=== PATIENT | female | born 1940 | race Caucasian/White ===

== ENCOUNTER → 2016-12-28 | Outpatient (CLI) | payer MEDICARE ==
--- NOTE | 2016-12-28 16:05 | BD ---
EXAMINATION TYPE: MG DEXA axial skeleton. DATE OF EXAM: 12/28/2016 7:33 AM COMPARISON: NONE CLINICAL HISTORY: Height: 5 ft 6 in Weight: 154 FRAX RISK QUESTIONS: Alcohol (3 or more units per day): NO Family History (Parent hip fracture): NO Glucocorticoids (More than 3mos): NO (Ex: prednisone, prednisolone, methylprednisolone, dexamethasone, and hydrocortisone). History of Fracture in Adulthood: NO Secondary Osteoporosis: 1. Type 1 Diabetes: NO 2. Hyperthyroidism: NO 3. Menopause before 45: YES 4. Malnutrition: NO 5. Chronic liver disease: NO Rheumatoid Arthritis: YES Current Tobacco Use: NO RISK FACTORS HISTORY OF: Active: YES Postmenopausal woman: TOTAL HYST AGE 42 Take estrogen and/or progesterone medications: NONE NOW Lost more than 2 inches in height since high school: YES MEDICATIONS: Additional Medications: METFROMIN,3 DIFFERENT BLOOD PRESSURE MEDS, ALEVE COQ10 Additional History: EXAM MEASUREMENTS: Bone mineral densitometry was performed using the [employer] System. Bone mineral density as measured about the Lumbar spine is: ----- L1-L4(G/cm2): 1.821 T Score Values are as follows: ----- L2: 4.6 ----- L3: 5.3 ----- L4: 5.9 ----- L1-L4: 5.3 BASELINE Bone mineral density about the R hip (g/cm2): 1.104 Bone mineral density about the L hip (g/cm2): 1.096 T Score values are as follows: -----R Neck: 0.5 -----L Neck: 0.4 -----R Intertrochanter: -0.4 -----L Intertrochanter: -1.6 BASELINE IMPRESSION: Osteopenia (T Score between -2.5 and -1 as noted by T score values There is slightly increased risk of fracture and the patient may be considered for treatment. Re-Screen 1-2 years. NOTE: T-SCORE=SD OF THE YOUNG ADULT MEAN.
--- NOTE | 2016-12-29 11:51 | MM ---
Reason for exam: screening (asymptomatic). Last mammogram was performed 1 year and 1 month ago. History: Patient is postmenopausal and is nulliparous. Took estrogen for 9 years. Physical Findings: A clinical breast exam by your physician is recommended on an annual basis and results should be correlated with mammographic findings. MG 3D Screening Mammo W/Cad Bilateral CC and MLO view(s) were taken. Prior study comparison: November 23, 2015, bilateral MG screening mammo w CAD. January 14, 2013, bilateral digital screening mammo w/CAD. There are scattered fibroglandular densities. Asymmetric breast tissue in the left breast posterior upper outer aspect. There is no discrete abnormality. ASSESSMENT: Negative, BI-RAD 1 RECOMMENDATION: Routine screening mammogram of both breasts in 1 year.
== END | disposition home or self-care (01) ==
LOC: RADMAMWWP 06:49
PROVIDERS: ATTEND Family Medicine
DX: Z12.31 Encounter for screening mammogram for malignant neoplasm of breast (principal); Z13.820 Encounter for screening for osteoporosis; M85.80 Other specified disorders of bone density and structure, unspecified site
CPT/HCPCS: 77080; 77063; G0202

== ENCOUNTER → 2021-06-15 | Outpatient (CLI) | payer MEDICARE ==
--- NOTE | 2021-06-15 08:44 | BD ---
EXAMINATION TYPE: Axial Bone Density PT VERY HUNCHED OVER, BENT AT TH E WAIST DATE OF EXAM: 06/15/2021 COMPARISON: 12.28.2016 CLINICAL HISTORY: 80 YR OLD FEMALE.....ICD-10 CODE: M85.80 DISORDER OF BD Height: 61.2 Weight: 131 FRAX RISK QUESTIONS: Secondary Osteoporosis: YES 3. Menopause before 45: YES RISK FACTORS HISTORY OF: Postmenopausal woman: YES, AT AGE 42 NATURALLY Take estrogen and/or progesterone medications: YES, PREMARIN FOR ABOUT 1-2 YRS Lost more than 2 inches in height since high school: YES Frequent falls: PT HUNCHED OVER AND UNSTEADY Poor Health: FRAIL Hyperparathyroidism: NO Adrenal Insufficiency: NO MEDICATIONS: Additional Medications: BP MEDS, JAULMET, FOR DIABETES, STATIN FOR CHOLESTEROL, VIT D3, Additional History: HYPERTENSION, DIABETIC, CHOLESTEROL, ARTHRITIS, EXAM MEASUREMENTS: Bone mineral densitometry was performed using the [employer] System. Bone mineral density as measured about the Lumbar spine is: ----- L1-L4(G/cm2): 1.711 T Score Values are as follows: ----- L1: 3.6 ----- L2: 3.1 ----- L3: 4.0 ----- L4: 6.1 ----- L1-L4: 4.4 Bone mineral density has: Decreased -3.8% since study of: 12.28.2016 Bone mineral density about the R hip (g/cm2): 1.048 Bone mineral density about the L hip (g/cm2): 1.032 T Score values are as follows: -----R Neck: -0.1 -----L Neck: -0.4 -----R Total: 0.3 -----L Total: 0.2 Bone mineral density has: Decreased -4.0% since study of: 12.28.2016 FRAX%s: THERE IS A 9.6% CHANCE FOR A MAJOR OSTEOPOROTIC FX AND A 1.7% FOR HIP......PROBABILITY FOR FX IN 10 YRS TIME IMPRESSION: Normal (Values between +1 and -1 indicate normal bone mass). Consider repeating this study in 5 year s or sooner if there is some new clinical indication. NOTE: T-SCORE=SD OF THE YOUNG ADULT MEAN.
== END | disposition home or self-care (01) ==
LOC: RADBDWWP 07:20
PROVIDERS: ATTEND Family Medicine
DX: M85.80 Other specified disorders of bone density and structure, unspecified site (principal)
CPT/HCPCS: 77080

== ENCOUNTER 2022-02-03 17:37 | Emergency (ER) | payer MEDICARE ==
[2022-02-03] MEDS ORDERED: BEBTELOVIMAB (EUA) 175 MG/2 ML VIAL IV ONE (19:45)
--- NOTE | 2022-02-03 19:49 | ED ---
General Adult HPI - General Chief complaint: Upper Respiratory Infection Stated complaint: Covid test Time Seen by Provider: 02/03/22 18:40 Source: patient, RN notes reviewed, old records reviewed Mode of arrival: ambulatory Limitations: no limitations - History of Present Illness Initial comments: Patient is an 81-year-old female with past medical history remarkable for diabetes, hypertension and presents emergency department over concern for COVID- 19 infection. She was vaccinated and boosted for COVID-19. She states she recently had a positive exposure 4 days ago. Like to be tested. She is having some mild symptoms including a nonproductive cough. Denies any chest pain, abdominal pain, nausea, vomiting, diarrhea. Denies any fevers or chills. Has no other acute complaints at this time. Would like monoclonal antibodies if she is positive. - Related Data Allergies Allergy/AdvReac Type Severity Reaction Status Date / Time aspirin Allergy Unknown Verified 02/03/22 17:46 cephalexin Allergy Unknown Verified 02/03/22 17:46 ciprofloxacin [From Cipro] Allergy Unknown Verified 02/03/22 17:46 codeine Allergy Unknown Verified 02/03/22 17:44 Review of Systems ROS Statement: Those systems with pertinent positive or pertinent negative responses have been documented in the HPI. Review of Systems: CONST: Denies fever EYES: Denies blurry vision ENT: Endorses nasal congestion. C/V: Denies Chest pain RESP: Denies shortness of breath GI: Denies abdominal pain : Denies dysuria SKIN: Denies rash. MSK: Denies joint pain. NEURO: Denies headache ROS Other: All systems not noted in ROS Statement are negative. Past Medical History Past Medical History: Diabetes Mellitus, Hyperlipidemia, Hypertension History of Any Multi-Drug Resistant Organisms: None Reported Past Surgical History: Appendectomy, Cholecystectomy, Coronary Bypass/CABG, Hysterectomy, Tonsillectomy Past Psychological History: No Psychological Hx Reported Smoking Status: Never smoker Past Alcohol Use History: None Reported Past Drug Use History: None Reported General Exam - General Exam Comments Initial Comments: General: Appears in no acute distress. HEAD: Normal with no signs of head trauma. EYES: PERRLA, EOMI, conjunctiva normal, no discharge. ENT: Hearing grossly intact, normal oropharynx. RESPIRATORY: Clear breath sounds bilaterally. No wheezes, rales, or rhonchi. Not hypoxic, no increased work of breathing. C/V: Regular rate and rhythm. S1 and S2 auscultated, no edema, peripheral pulses 2+ and intact throughout ABD: Abd is soft, nontender, nondistended EXT: Normal range of motion, no obvious deformity SKIN: No rashes or lesions observed on exposed skin. NEURO: Alert and oriented 4. Limitations: no limitations Course Vital Signs 02/03/22 17:40 Temperature 98.1 F Pulse Rate 80 Respiratory 18 Rate Blood Pressure 177/78 O2 Sat by Pulse 99 Oximetry Medical Decision Making - Medical Decision Making Based on the patient's presentation and physical exam, I do believe she is Covid 19 positive. Covid testing was ordered in triage and was be positive. I do not believe that she requires further laboratory studies at this time. She would like monoclonal antibody therapy and she is a candidate. She consented to treatment. I believe she will be discharged home afterwards. She was in agreement this plan. We discussed quarantine. She'll follow-up with her PCP. I instructed the patient to follow up with their PCP in the next 3 days. I explained that the patient should return to the emergency department if they experience any worsening symptoms. Strict return precautions were discussed with the patient. The patient expressed understanding of these instructions. I answered all questions that the patient had. The patient was discharged home in good condition with their prescriptions and follow up information. - Lab Data Lab Results 02/03/22 Range/Units 17:53 Coronavirus (PCR) Detected A (Not Detectd) Disposition Clinical Impression: COVID-19 virus infection Disposition: HOME SELF-CARE Condition: Good Instructions (If sedation given, give patient instructions): COVID-19 (Coronavirus Disease 2019) (ED) Is patient prescribed a controlled substance at d/c from ED?: No Referrals: Musa Feliciano MD [Primary Care Provider] - 1-2 days Time of Disposition: 19:47
[2022-02-03 21:59] VITALS: RESP 20
[2022-02-03 22:04] VITALS: BP 168/77; PULSE 76; TEMP 98
== END 2022-02-03 22:03 | disposition home or self-care (01) ==
LOC: EC 17:37
DX: U07.1 COVID-19 (principal); E11.9 Type 2 diabetes mellitus without complications; I10 Essential (primary) hypertension; E78.5 Hyperlipidemia, unspecified
CPT/HCPCS: 87635; 99283; Q0222

== ENCOUNTER 2023-02-28 17:33 | Inpatient (IN) | payer MEDICARE ==
[2023-02-28] MEDS ORDERED: MECLIZINE 25 MG TAB PO STA (17:51)
--- NOTE | 2023-02-28 18:26 | ED ---
General Adult HPI - General Chief complaint: Dizziness Stated complaint: Dizziness Time Seen by Provider: 02/28/23 17:40 Source: patient, EMS, RN notes reviewed, old records reviewed Mode of arrival: EMS - History of Present Illness Initial comments: This is an 82-year-old female presents emergency Department complaining that she is extremely dizzy. Patient states anytime she moves he gets dizzy and feels like she can follow. Patient states his did follow her she did not injure herself. Patient denies any headache patient denies any hearing loss or ringing in ears its new. Patient denies chest pain palpitations or difficulty breathing. Patient doesn't recall having similar symptoms in the past. Patient states she doesn't feel like she is given a passout just fall over. Patient denies any other problems at this time earlier she stated she was a little nause ous but no longer nauseous now - Related Data Home Medications Medication Instructions Recorded Confirmed Aspirin [Adult Low Dose Aspirin EC] 1 tab PO DAILY 08/22/22 02/28/23 Simvastatin [Zocor] 20 tab PO HS 08/22/22 02/28/23 amLODIPine [Norvasc] 5 tab PO BID 08/22/22 02/28/23 sitaGLIPtin PHOS/metFORMIN HCL 1 tab PO DAILY 08/22/22 02/28/23 [Janumet 50-1,000 mg Tablet] Cholecalciferol [Vitamin D3 (25 50 mcg PO DAILY 02/28/23 02/28/23 Mcg = 1000 Iu)] Cyanocobalamin (Vitamin B-12) 1,000 mcg PO MOWEFR 02/28/23 02/28/23 [Vitamin B-12] Doxazosin [Cardura] 2 mg PO HS 02/28/23 02/28/23 Losartan Potassium [Cozaar] 100 mg PO DAILY 02/28/23 02/28/23 Metoprolol Succinate [Toprol XL] 200 mg PO DAILY 02/28/23 02/28/23 Turmeric Root Extract [Turmeric] 500 mg PO DAILY 02/28/23 02/28/23 Ubidecarenone [Co Q-10] 300 mg PO DAILY 02/28/23 02/28/23 Allergies Allergy/AdvReac Type Severity Reaction Status Date / Time aspirin Allergy Unknown Verified 02/28/23 19:57 cephalexin Allergy Unknown Verified 02/28/23 19:57 ciprofloxacin [From Cipro] Allergy Unknown Verified 02/28/23 19:57 codeine Allergy Unknown Verified 02/28/23 19:57 Review of Systems ROS Statement: Those systems with pertinent positive or pertinent negative responses have been documented in the HPI. ROS Other: All systems not noted in ROS Statement are negative. Past Medical History Past Medical History: Diabetes Mellitus, Hyperlipidemia, Hypertension History of Any Multi-Drug Resistant Organisms: None Reported Past Surgical History: Appendectomy, Cholecystectomy, Coronary Bypass/CABG, Hysterectomy, Tonsillectomy Past Psychological History: No Psychological Hx Reported Smoking Status: Never smoker Past Alcohol Use History: None Reported Past Drug Use History: None Reported General Exam - General Exam Comments Initial Comments: GENERAL: Patient is well-developed and well-nourished. Patient is nontoxic and well- hydrated and is in mild distress. ENT: Neck is soft and supple. No significant lymphadenopathy is noted. Oropharynx is clear. Moist mucous membranes. Neck has full range of motion without eliciting any pain. EYES: The sclera were anicteric and conjunctiva were pink and moist. Extraocular movements were intact and pupils were equal round and reactive to light. Eyelids were unremarkable. Patient had some nystagmus when looking to the left PULMONARY: Unlabored respirations. Good breath sounds bilaterally. No audible rales rhonchi or wheezing was noted. CARDIOVASCULAR: There is a regular rate and rhythm without any murmurs gallops or rubs. ABDOMEN: Soft and nontender with normal bowel sounds. SKIN: Skin is clear with no lesions or rashes and otherwise unremarkable. NEUROLOGIC: Patient is alert and oriented x3. Cranial nerves II through XII are grossly intact. Motor and sensory are also intact. Normal speech, volume and content. Symmetrical smile. Finger nose testing was normal bilaterally MUSCULOSKELETAL: Normal extremities with adequate strength and full range of motion. LYMPHATICS: No significant lymphadenopathy is noted PSYCHIATRIC: Normal psychiatric evaluation. Course Vital Signs 02/28/23 17:35 Temperature 98.9 F Pulse Rate 71 Respiratory 16 Rate Blood Pressure 170/85 O2 Sat by Pulse 96 Oximetry Medical Decision Making - Medical Decision Making Patient's EKG was interpreted by myself shows a sinus rhythm at 71 bpm AL interval is 235 QRS is 93 QT intervals 419 QTC is 441 per patient's EKG shows no ST segment elevation or depression Repeat EKG was done shows a sinus rhythm at 60 bpm AL interval 174 QRS is 98 QTC intervals 469 QTC is 475. Patient also had a long pause lasting approximately a little over 2 seconds Was pt. sent in by a medical professional or institution ([facility], [facility], urgent care, hospital, or jail...) When possible be specific @ -No Did you speak to anyone other than the patient for history (EMS, parent, family, police, friend...)? What history was obtained from this source @ -No Did you review nursing and triage notes (agree or disagree)? Why? @ -I reviewed and agree with nursing and triage notes Were old charts reviewed (outside hosp., previous admission, EMS record, old EKG, old radiological studies, urgent care reports/EKG's, jail records)? Report findings @ -No old charts were reviewed Differential Diagnosis (chest pain, altered mental status, abdominal pain women, abdominal pain men, vaginal bleeding, weakness, fever, dyspnea, syncope, headache, dizziness, GI bleed, back pain, seizure, CVA, palpatations, mental health, musculoskeletal)? @ -Differential Dizziness: Benign paroxysmal positional Vertigo, Menieres disease, otitis media, acoustic neuroma, vertebrobasilar insufficiency, cerebellar stroke, encephalitis, hypovolemic, arrhythmia, coronary artery syndrome, anemia, this is not meant to be an all-inclusive list EKG interpreted by me (3pts min.). @ -As above X-rays interpreted by me (1pt min.). @ -Chest x-ray was interpreted by myself as see no acute abnormalities. CT interpreted by me (1pt min.). @ -CT of the brain was interpreted by myself as see no acute abnormalities U/S interpreted by me (1pt. min.). @ -None done What testing was considered but not performed or refused? (CT, X-rays, U/S, labs)? Why? @ -None What meds were considered but not given or refused? Why? @ -None Did you discuss the management of the patient with other professionals (professionals i.e. [facility], [facility], lab, RT, psych nurse, marriage and family social worker, hydraulic rubbish compactor mechanic, teacher, consular officer, sample case porter)? Give summary @ -I spoke with sounds physician's he agreed to admit the patient to the patient wrote admitting orders Was smoking cessation discussed for >3mins.? @ -No Was critical care preformed (if so, how long)? @ -No Were there social determinants of health that impacted care today? How? (Homelessness, low income, unemployed, alcoholism, drug addiction, transportation, low edu. Level, literacy, decrease access to med. care, skilled nursing, rehab)? @ -No Was there de-escalation of care discussed even if they declined (Discuss DNR or withdrawal of care, Hospice)? DNR status @ -No What co-morbidities impacted this encounter? (DM, HTN, Smoking, COPD, CAD, Cancer, CVA, ARF, Chemo, Hep., AIDS, mental health diagnosis, sleep apnea, morbid obesity)? @ -None Was patient admitted / discharged? Hospital course, mention meds given and route, prescriptions, significant lab abnormalities, going to OR and other pertinent info. @ -Received Antivert for her vertiginous symptoms. I went back into reevaluate the patient she was unable to sit up in bed. Patient also had elevated creatinine she was unaware of this so I spoke with sounds physician's a agreed to admit the patient to the patient wrote admitting orders Undiagnosed new problem with uncertain prognosis? @ -No Drug Therapy requiring intensive monitoring for toxicity (Heparin, Nitro, Insulin, Cardizem)? @ -No Were any procedures done? @ -No Diagnosis/symptom? @ -Vertigo Acute, or Chronic, or Acute on Chronic? @ -Acute Uncomplicated (without systemic symptoms) or Complicated (systemic symptoms)? @ -Complicated Side effects of treatment? @ -No Exacerbation, Progression, or Severe Exacerbation? @ -No Poses a threat to life or bodily function? How? (Chest pain, [place], [place], pneumonia, PE, COPD, DKA, ARF, appy, cholecystitis, CVA, Diverticulitis, Homicidal, Suicidal, threat to staff... and all critical care pts) @ -No Diagnosis/symptom? @ -Renal insufficiency Acute, or Chronic, or Acute on Chronic? @ -Acute Uncomplicated (without systemic symptoms) or Complicated (systemic symptoms)? @ -Complicated Side effects of treatment? @ -none Exacerbation, Progression, or Severe Exacerbation] @ -no Poses a threat to life or bodily function? @ -no - Lab Data Result diagrams: 02/28/23 17:58 02/28/23 17:58 Lab Results 02/28/23 02/28/23 02/28/23 Range/Units 17:58 17:58 17:58 WBC 13.2 H (3.8-10.6) k/uL RBC 3.26 L (3.80-5.40) m/uL Hgb 10.4 L (11.4-16.0) gm/dL Hct 32.7 L (34.0-46.0) % MCV 100.4 H (80.0-100.0) fL MCH 32.0 (25.0-35.0) pg MCHC 31.9 (31.0-37.0) g/dL RDW 12.9 (11.5-15.5) % Plt Count 173 (150-450) k/uL MPV 10.7 Neutrophils % 86 % Lymphocytes % 6 % Monocytes % 7 % Eosinophils % 1 % Basophils % 0 % Neutrophils # 11.4 H (1.3-7.7) k/uL Lymphocytes # 0.8 L (1.0-4.8) k/uL Monocytes # 0.9 (0-1.0) k/uL Eosinophils # 0.1 (0-0.7) k/uL Basophils # 0.0 (0-0.2) k/uL Sodium 137 (137-145) mmol/L Potassium 4.6 (3.5-5.1) mmol/L Chloride 105 (98-107) mmol/L Carbon Dioxide 22 (22-30) mmol/L Anion Gap 10 mmol/L BUN 47 H (7-17) mg/dL Creatinine 2.22 H (0.52-1.04) mg/dL Est GFR (CKD-EPI)AfAm 23 (>60 ml/min/1.73 sqM) Est GFR (CKD-EPI)NonAf 20 (>60 ml/min/1.73 sqM) Glucose 184 H (74-99) mg/dL Calcium 9.3 (8.4-10.2) mg/dL Magnesium 1.9 (1.6-2.3) mg/dL Total Bilirubin 0.6 (0.2-1.3) mg/dL AST 34 (14-36) U/L ALT 29 (4-34) U/L Alkaline Phosphatase 135 H (38-126) U/L Troponin I <0.012 (0.000-0.034) ng/mL Total Protein 6.7 (6.3-8.2) g/dL Albumin 4.0 (3.5-5.0) g/dL Disposition Clinical Impression: Renal insufficiency, Vertigo Disposition: ADMITTED IP TO THIS HOSP Referrals: Musa Feliciano MD [Primary Care Provider] - 1-2 days Time of Disposition: 19:52
[2023-02-28 18:32] LABS: Basophils % (A) 0 %; Eosinophils # (A) 0.1 k/uL (0-0.7); Eosinophils % (A) 1 %; HCT 32.7 % (34.0-46.0); HGB 10.4 gm/dL (11.4-16.0); Lymphocytes # (A) 0.8 k/uL (1.0-4.8); Lymphocytes % (A) 6 %; MCHC 31.9 g/dL (31.0-37.0); MCV 100.4 fL (80.0-100.0); Mean Platelet Volume 10.7; Monocytes # (A) 0.9 k/uL (0-1.0); Monocytes % (A) 7 %; Neutrophils # (A) 11.4 k/uL (1.3-7.7); Neutrophils % (A) 86 %; Platelet Count 173 k/uL (150-450); RBC 3.26 m/uL (3.80-5.40); RDW 12.9 % (11.5-15.5); WBC 13.2 k/uL (3.8-10.6)
--- NOTE | 2023-02-28 18:39 | CT ---
EXAMINATION TYPE: CT brain wo con DATE OF EXAM: 02/28/2023 COMPARISON: None INDICATION: ams, weakness, dizziness DLP: 1133.4 mGycm, Automated exposure control for dose reduction was used. CONTRAST: None CT of the brain is performed utilizing 3 mm thick sections through the posterior fossa and 3 mm thick sections through the remaining calvarium. Study is performed within 24 hours of arrival to the hosp ital. No abnormal hyperdensity is present to suggest an acute intracranial hemorrhage. No mass lesion is evident. No acute infarcts are evident. Periventricular white matter hypodensity is present, likely on the bas is of chronic white matter ischemic changes. Ventricles and sulci are prominent for the patient age. Paranasal sinuses and mastoid air cells within the [id number] are clear. IMPRESSIONS: 1. Atrophy with periventricular white matter ischemic changes. 2. No acute intracranial process. Follow-up MRI can be performed as clinically indicated.
[2023-02-28 18:47] LABS: Calcium 9.3 mg/dL (8.4-10.2); Magnesium 1.9 mg/dL (1.6-2.3); Potassium 4.6 mmol/L (3.5-5.1); Total Bilirubin 0.6 mg/dL (0.2-1.3); Total Protein 6.7 g/dL (6.3-8.2)
--- NOTE | 2023-02-28 18:48 | XR ---
EXAMINATION TYPE: XR chest 2V DATE OF EXAM: 02/28/2023 COMPARISON: Chest pain fall weakness INDICATION: Chest pain TECHNIQUE: Frontal and lateral views of the chest are obtained. FINDINGS: The heart size is normal. The pulmonary vasculature is somewhat prominent. Small posterior pleural effusion may be present. Sternotomy wires are present from prior cardiac valv e surgery. Osteoarthritic Degenerative changes are noted at the right shoulder. IMPRESSION: 1. Mild vascular prominence. Correlate for volume overload. 2. Small posterior pleural effusion
[2023-02-28] MEDS ORDERED: SODIUM CHLORIDE 0.9% 1,000 ML IV ONE (19:53)
[2023-02-28] MEDS ORDERED: SCOPOLAMINE 1 MG/72 HR PATCH TRANSDERM STA (19:54)
[2023-02-28] MEDS ORDERED: GLUCAGON 1 MG/ML VIAL IVP STA (21:12)
[2023-02-28] MEDS: DOPamine DRIP 800 MG in DEXTROSE/WATER 1 250ML.BAG IV SCH (21:25)
[2023-02-28] MEDS ORDERED: Potassium Replacement Protocol 1 EACH MISC MISCELLANE PRN (22:11)
[2023-02-28] MEDS ORDERED: NALOXONE 0.4 MG/ML 1 ML VIAL IV PRN (22:11)
[2023-02-28] MEDS ORDERED: ALPRAZolam 0.25 MG TAB PO PRN (22:11)
[2023-02-28] MEDS ORDERED: Magnesium Replacement Protocol 1 EACH MISC MISCELLANE PRN (22:11)
[2023-02-28] MEDS ORDERED: ACETAMINOPHEN TAB 325 MG TAB PO PRN (22:11)
[2023-03-01 00:31] LABS: Glucose,Whole Blood 218 mg/dL (70-110)
[2023-03-01] MEDS: HEPARIN SODIUM,PORCINE/PF 5,000 UNIT/0.5 ML SYRINGE SQ SCH ×3 (00:33→16:47)
--- NOTE | 2023-03-01 02:13 | P.HPIM ---
History of Present Illness H&P Date: 02/28/23 Chief Complaint: dizziness 82 year old female with hypertension , CABG 10 years ago , DM patient coming in due to dizziness , she is unable to walk or do anything, as she feels extremly dizzy and nauseated. she denies any palpitations, chest pain , SOB, fever, chills, URI symptoms, ear ache, headache, tinnitus , or vomiting. denies any hearing loss. denies any head trauma. her symptoms were off/on since Monday (2 days ago) she saw her packaging designer yesterday , and everything seemed to be fine, no new medications no changes in her meds. she came in via EMS, and found to have 1st degree AV block. however ,later while monitored inthe EED , she went into complete heart block. cardiology notified , and she was started on dopamine drip, and given glucagon injection to help reverse her metoprolol daily dose of 200 mg she denies smoking or any illicit drugs she has never experienced such symptoms before. Review of Systems Pertinent positives as noted in HPI. All other systems were reviewed and are negative Past Medical History Past Medical History: Diabetes Mellitus, Hyperlipidemia, Hypertension History of Any Multi-Drug Resistant Organisms: None Reported Past Surgical History: Appendectomy, Cholecystectomy, Coronary Bypass/CABG, Hy sterectomy, Tonsillectomy Past Psychological History: No Psychological Hx Reported Smoking Status: Never smoker Past Alcohol Use History: None Reported Past Drug Use History: None Reported Medications and Allergies Home Medications Medication Instructions Recorded Confirmed Type Aspirin [Adult Low Dose Aspirin EC] 1 tab PO DAILY 08/22/22 02/28/23 History Simvastatin [Zocor] 20 tab PO HS 08/22/22 02/28/23 History amLODIPine [Norvasc] 5 tab PO BID 08/22/22 02/28/23 History sitaGLIPtin PHOS/metFORMIN HCL 1 tab PO DAILY 08/22/22 02/28/23 History [Janumet 50-1,000 mg Tablet] Cholecalciferol [Vitamin D3 (25 50 mcg PO DAILY 02/28/23 02/28/23 History Mcg = 1000 Iu)] Cyanocobalamin (Vitamin B-12) 1,000 mcg PO MOWEFR 02/28/23 02/28/23 History [Vitamin B-12] Doxazosin [Cardura] 2 mg PO HS 02/28/23 02/28/23 History Losartan Potassium [Cozaar] 100 mg PO DAILY 02/28/23 02/28/23 History Metoprolol Succinate [Toprol XL] 200 mg PO DAILY 02/28/23 02/28/23 History Turmeric Root Extract [Turmeric] 500 mg PO DAILY 02/28/23 02/28/23 History Ubidecarenone [Co Q-10] 300 mg PO DAILY 02/28/23 02/28/23 History Allergies Allergy/AdvReac Type Severity Reaction Status Date / Time aspirin Allergy Unknown Verified 02/28/23 19:57 cephalexin Allergy Unknown Verified 02/28/23 19:57 ciprofloxacin [From Cipro] Allergy Unknown Verified 02/28/23 19:57 codeine Allergy Unknown Verified 02/28/23 19:57 Physical Exam Vitals: Vital Signs Temp Pulse Resp BP Pulse Ox 02/28/23 17:35 98.9 F 71 16 170/85 96 Intake and Output 02/28/23 02/28/23 02/28/23 06:59 14:59 22:59 Other: Weight 61.235 kg Constitutional: patient is very dizzy and nauseated Eyes: Anicteric sclerae, moist conjunctiva, Pupils equal round reactive to light ENMT: NC/AT Oropharynx clear, no erythema, or exudates Neck: Supple, no masses, or JVD No carotid bruits No thyromegaly Lungs: Clear to auscultation Clear to percussion Normal respiratory effort, no accessory muscle use Cardiovascular: Heart bradycardia No murmurs, gallops, or rubs No peripheral edema Abdominal: Soft Nontender, no guarding, rebound or rigidity Abdomen moving with respiration Normoactive bowel sounds No hepatomegaly, No splenomegaly Skin: Normal temperature, tone, texture, turgor Extremities: No digital cyanosis No clubbing Pedal pulses intact and symmetrical Radial pulses intact and symmetrical No calf tenderness Psychiatric: Alert and oriented to person, place and time Neuro Muscles Strength 4/5 in all 4 extremities Sensation to light touch grossly present throughout Cranial nerves II-XII grossly intact Lymphatics: no palpable cervical or supraclavicular lymph nodes Results CBC & Chem 7: 02/28/23 17:58 02/28/23 17:58 Labs: Abnormal Lab Results - Last 24 Hours (Table) 05/09/23 05/09/23 Range/Units 17:58 17:58 WBC 13.2 H (3.8-10.6) k/uL RBC 3.26 L (3.80-5.40) m/uL Hgb 10.4 L (11.4-16.0) gm/dL Hct 32.7 L (34.0-46.0) % MCV 100.4 H (80.0-100.0) fL Neutrophils # 11.4 H (1.3-7.7) k/uL Lymphocytes # 0.8 L (1.0-4.8) k/uL BUN 47 H (7-17) mg/dL Creatinine 2.22 H (0.52-1.04) mg/dL Glucose 184 H (74-99) mg/dL Alkaline Phosphatase 135 H (38-126) U/L Assessment and Plan Assessment: 82 year old female coming in with nausea and dizziness. I discussed the case with ED doc, she was found to be in complete heart block , I accepted the admission to the ICU for dopamine drip and close monitoring and cardiology evaluation . with anticipated length of stay > 2 midnights symptomatic bradycardia complete heart block hypertension plan laboratory monitor initiate on dopamine drip per cardiology recommendations glucagon injection given to reverse metoprolol effect she takes 200 mg daily (per cardiology recommendations) I notified ICU attending who accepted the case to the ICU monitor vital signs, urine output symptomatic control of nausea with PRN zofran hold metoprolol and amlodipine continue with losartan and cardura EKG showed complete heart block Brain CT no acute pathology CXR small plural effusion , increase vascular prominence k 4.6 UNREMARKABLE trops negative CKD III cr 2.2 , unknown baseline monitor urine output monitor renal function DM insulin sliding scale full code DVT PPX heparin sc tid 5000 units
[2023-03-01 04:25] LABS: Basophils % (A) 0 %; Eosinophils # (A) 0.1 k/uL (0-0.7); Eosinophils % (A) 1 %; HGB 10.2 gm/dL (11.4-16.0); Lymphocytes # (A) 0.9 k/uL (1.0-4.8); Lymphocytes % (A) 9 %; MCH 31.4 pg (25.0-35.0); MCHC 30.9 g/dL (31.0-37.0); MCV 101.5 fL (80.0-100.0); Mean Platelet Volume 10.3; Monocytes # (A) 0.7 k/uL (0-1.0); Monocytes % (A) 7 %; Neutrophils # (A) 7.9 k/uL (1.3-7.7); Neutrophils % (A) 82 %; Platelet Count 183 k/uL (150-450); RBC 3.25 m/uL (3.80-5.40); WBC 9.6 k/uL (3.8-10.6)
[2023-03-01 04:56] LABS: Phosphorus 5.2 mg/dL (2.5-4.5); Potassium 5.2 mmol/L (3.5-5.1)
[2023-03-01 06:31] LABS: Glucose,Whole Blood 210 mg/dL (70-110)
[2023-03-01] MEDS: INSULIN ASPART (NovoLOG) 100 UNIT/ML VIAL SQ SCH ×4 (07:20→21:05)
[2023-03-01] MEDS: DEXTROSE 5%-0.9% NACL 1,000 ML IV SCH ×2 (07:20→12:26)
[2023-03-01] MEDS ORDERED: INSULIN ASPART (NovoLOG) 100 UNIT/ML VIAL SQ SCH (07:30)
[2023-03-01] MEDS ORDERED: LINAGLIPTIN 5 MG TABLET PO SCH (09:00)
[2023-03-01] MEDS ORDERED: LOSARTAN 50 MG TAB PO SCH (09:00)
--- NOTE | 2023-03-01 09:04 | US ---
EXAMINATION TYPE: US renals and bladder DATE OF EXAM: 03/01/2023 COMPARISON: NONE CLINICAL INDICATION: Female, 82 years old with history of elevated Cr; ICU patient with abn labs, no renal history or symptoms EXAM MEASUREMENTS: Right Kidney: 7.2 x 4.1 x 4.5cm Left Kidney: 7.4 x 4.7 x 4.8cm Right Kidney: No hydronephrosis or masses seen, small in size Left Kidney: No hydronephrosis or masses seen, small in size, limited visibility due to bowel gas and limited patient mobility Bladder: wnl No hydronephrosis or nephro lithiasis. Renal cortex does appear to be preserved. Trace of right pleur al fluid. Preservation of cortical medullary differentiation is visualized. IMPRESSION: Renal atrophy with diminutive renal size with no hydronephrosis and devices. Cortex appears preserved . Trace right pleural effusion incidentally noted.
--- NOTE | 2023-03-01 09:08 | P.CRDCN ---
History of Present Illness Consult date: 03/01/23 Consult reason: sycope History of present illness: The patient is an 82-year-old female who presented to the hospital with dizziness and syncope. The patient states she developed dizziness on Monday. This was worsened with standing and would resolve if she would sit and rest. On Monday morning the patient was standing and does not recall her falling, but regained consciousness while lying on the floor. Initial EKG showed sinus, then converted to complete heart block. The patient has remained in complete heart block with heart rates in the 30s to 40s. The patient takes high-dose beta blockers at home, therefore she was given glucagon and started on a dopamine drip during her washout period. DIAGNOSTICS: EKG shows complete heart block Chest x-ray shows small posterior pleural effusion CT of the brain shows no acute intracranial process with periventricular chronic white matter changes Labs: WBC 9.6, hemoglobin 10.2, hematocrit 33.0, platelet 183, sodium 137, potassium 5.2, BUN 54, creatinine 2.34, magnesium 2.0, AST 34, ALT 29, troponin negative, TSH 2.9 PAST MEDICAL HISTORY: Coronary artery disease, status post prior CABG, hypertension, diabetes, hyperlipidemia REVIEW OF SYSTEMS: No fever or chills. No cough or expectoration. No diaphoresis. Patient denies headache, dizziness, blurred vision, double vision. Patient denies any stomach discomfort. No nausea, vomiting. No hematochezia. No hematemesis. Denies any black stools or blood in his stools. Denies dysuria or hematuria. No muscle weakness or numbness. No chest pain or chest pressure. No difficulty breathing. PHYSICAL EXAMINATION: This is a 82-year-old female in no apparent distress at the time of my examination. HEENT: Head is atraumatic, normocephalic. Pupils are equal, round. Sclerae anicteric. Conjunctivae are clear. Mucous membranes of the mouth are moist. Neck is supple. There is no jugular venous distention. No carotid bruit is heard. CHEST EXAMINATION: Lungs are clear to auscultation. No chest wall tenderness is noted on palpation or with deep breathing. HEART EXAMINATION: Heart regular rate and rhythm. S1, S2 heard. Systolic ejecti on murmur at the base. No gallops or rub. ABDOMEN: Soft, nontender. Bowel sounds are heard. No organomegaly noted. EXTREMITIES: 2+ peripheral pulses with no evidence of peripheral edema and no calf tenderness noted. NEUROLOGIC EXAMINATION: Patient is awake, alert and oriented x3. FINAL ASSESSMENT AND PLAN: Syncope and collapse Complete heart block Acute kidney injury History of CABG, approximately 10 years prior at [facility] History hypertension History diabetes Systolic ejection murmur, echocardiogram pending PLAN: Continue dopamine drip Awaiting echocardiogram Plan for biventricular pacemaker placement tomorrow Further recommendations clinical course I am dictating on behalf of Dr Andriy Barnett's history/physical and assessment/plan. Past Medical History Past Medical History: Diabetes Mellitus, Hyperlipidemia, Hypertension History of Any Multi-Drug Resistant Organisms: None Reported Past Surgical History: Appendectomy, Cholecystectomy, Coronary Bypass/CABG, Hysterectomy, Tonsillectomy Past Psychological History: No Psychological Hx Reported Smoking Status: Never smoker Past Alcohol Use History: None Reported Past Drug Use History: None Reported Medications and Allergies Home Medications Medication Instructions Recorded Confirmed Type Aspirin [Adult Low Dose Aspirin EC] 1 tab PO DAILY 08/22/22 02/28/23 History Simvastatin [Zocor] 20 tab PO HS 08/22/22 02/28/23 History amLODIPine [Norvasc] 5 tab PO BID 08/22/22 02/28/23 History sitaGLIPtin PHOS/metFORMIN HCL 1 tab PO DAILY 08/22/22 02/28/23 History [Janumet 50-1,000 mg Tablet] Cholecalciferol [Vitamin D3 (25 50 mcg PO DAILY 02/28/23 02/28/23 History Mcg = 1000 Iu)] Cyanocobalamin (Vitamin B-12) 1,000 mcg PO MOWEFR 02/28/23 02/28/23 History [Vitamin B-12] Doxazosin [Cardura] 2 mg PO HS 02/28/23 02/28/23 History Losartan Potassium [Cozaar] 100 mg PO DAILY 02/28/23 02/28/23 History Metoprolol Succinate [Toprol XL] 200 mg PO DAILY 02/28/23 02/28/23 History Turmeric Root Extract [Turmeric] 500 mg PO DAILY 02/28/23 02/28/23 History Ubidecarenone [Co Q-10] 300 mg PO DAILY 02/28/23 02/28/23 History Allergies Allergy/AdvReac Type Severity Reaction Status Date / Time aspirin Allergy Unknown Verified 02/28/23 19:57 cephalexin Allergy Unknown Verified 02/28/23 19:57 ciprofloxacin [From Cipro] Allergy Unknown Verified 02/28/23 19:57 codeine Allergy Unknown Verified 02/28/23 19:57 Physical Exam Vitals: Vital Signs Temp Pulse Resp BP Pulse Ox 03/01/23 06:00 26 L 29 H 128/59 97 03/01/23 05:30 24 L 24 125/92 99 03/01/23 05:21 98.2 F 03/01/23 05:00 38 L 26 H 109/65 96 03/01/23 04:30 39 L 26 H 134/60 96 03/01/23 04:00 39 L 24 115/96 97 03/01/23 03:30 39 L 26 H 121/48 97 03/01/23 03:00 40 L 24 123/73 97 03/01/23 02:00 40 L 24 127/74 97 03/01/23 01:30 40 L 26 H 120/81 97 03/01/23 01:00 40 L 22 126/87 96 03/01/23 00:30 40 L 24 124/53 97 03/01/23 00:00 40 L 24 117/52 95 02/28/23 23:30 41 L 22 107/63 96 02/28/23 23:00 40 L 18 92/44 97 02/28/23 22:24 38 L 24 109/50 97 02/28/23 21:06 35 L 18 139/83 97 02/28/23 20:33 35 L 18 142/83 93 L 02/28/23 17:35 98.9 F 71 16 170/85 96 Intake and Output 02/28/23 03/01/23 03/01/23 22:59 06:59 14:59 Intake Total 1.722 40.57 Balance 1.722 40.57 Intake: Intake, IV Titration 1.722 40.57 Amount DOPamine DRIP 800 mg In 1.722 40.57 Dextrose/Water 1 250ml. bag @ 2 MCG/KG/MIN 2.296 mls/hr IV .Q24H [facility] Rx#: [id number] Other: Weight 61.235 kg Results 03/01/23 04:15 03/01/23 04:15 Cardiac Enzymes 02/28/23 02/28/23 Range/Units 17:58 17:58 AST 34 (14-36) U/L Troponin I <0.012 (0.000-0.034) ng/mL CBC 02/28/23 03/01/23 Range/Units 17:58 04:15 WBC 13.2 H 9.6 (3.8-10.6) k/uL RBC 3.26 L 3.25 L (3.80-5.40) m/uL Hgb 10.4 L 10.2 L (11.4-16.0) gm/dL Hct 32.7 L 33.0 L (34.0-46.0) % Plt Count 173 183 (150-450) k/uL Comprehensive Metabolic Panel 02/28/23 03/01/23 Range/Units 17:58 04:15 Sodium 137 137 (137-145) mmol/L Potassium 4.6 5.2 H (3.5-5.1) mmol/L Chloride 105 104 (98-107) mmol/L Carbon Dioxide 22 21 L (22-30) mmol/L BUN 47 H 54 H (7-17) mg/dL Creatinine 2.22 H 2.37 H (0.52-1.04) mg/dL Glucose 184 H 198 H (74-99) mg/dL Calcium 9.3 9.0 (8.4-10.2) mg/dL AST 34 (14-36) U/L ALT 29 (4-34) U/L Alkaline Phosphatase 135 H (38-126) U/L Total Protein 6.7 (6.3-8.2) g/dL Albumin 4.0 (3.5-5.0) g/dL Current Medications Generic Name Dose Route Start Last Admin Trade Name Freq PRN Reason Stop Dose Admin Acetaminophen 650 mg 02/28/23 22:11 Acetaminophen Tab 325 Mg Tab PO Q4HR PRN Fever and/or Mild Pain Alprazolam 0.25 mg 02/28/23 22:11 Alprazolam 0.25 Mg Tab PO Q8HR PRN Anxiety Aspirin 81 mg 03/01/23 09:00 Aspirin 81 Mg PO DAILY [facility] Atorvastatin Calcium 10 mg 03/01/23 21:00 Atorvastatin 10 Mg Tab PO HS [facility] Doxazosin Mesylate 2 mg 03/01/23 21:00 Doxazosin 2 Mg Tab PO HS FAUSTO Heparin Sodium (Porcine) 5,000 unit 03/01/23 00:00 03/01/23 00:33 Heparin Sodium,Porcine/Pf 5,000 Unit/0.5 Ml Syringe SQ 5,000 unit Q8HR FAUSTO Administration Dopamine HCl/Dextrose 800 mg/ 250 mls @ 5.741 mls/hr 02/28/23 22:00 03/01/23 05:14 IV Solution IV 8 mcg/kg/min .Q24H FAUSTO 9.185 mls/hr Titration Protocol 5 MCG/KG/MIN Dextrose/Sodium Chloride 1,000 mls @ 75 mls/hr 02/28/23 22:15 03/01/23 07:20 Dextrose 5%-Ns Iv Soln IV 75 mls/hr .[id number] FAUSTO Administration Insulin Aspart 0 unit 03/01/23 07:30 03/01/23 07:20 Insulin Aspart (Novolog) 100 Unit/Ml Vial SQ 2 unit ACHS FAUSTO Administration Protocol Losartan Potassium 100 mg 03/01/23 09:00 Losartan 50 Mg Tab PO DAILY [facility] Miscellaneous Information 1 each 02/28/23 22:11 Potassium Replacement Protocol 1 Each Misc MISCELLANE DAILY PRN Per Protocol Miscellaneous Information 1 each 02/28/23 22:11 Magnesium Replacement Protocol 1 Each Misc MISCELLANE DAILY PRN Per Protocol Protocol Naloxone HCl 0.2 mg 02/28/23 22:11 Naloxone 0.4 Mg/Ml 1 Ml Vial IV Q2M PRN Opioid Reversal Pantoprazole Sodium 40 mg 03/01/23 07:30 Pantoprazole 40 Mg Tablet PO [id number] Intake and Output 02/28/23 03/01/23 03/01/23 22:59 06:59 14:59 Intake Total 1.722 40.57 Balance 1.722 40.57 Intake: Intake, IV Titration 1.722 40.57 Amount DOPamine DRIP 800 mg In 1.722 40.57 Dextrose/Water 1 250ml. bag @ 2 MCG/KG/MIN 2.296 mls/hr IV .Q24H [facility] Rx#: [id number] Other: Weight 61.235 kg 03/01/23 04:15 03/01/23 04:15
[2023-03-01] MEDS: ASPIRIN 81 MG PO SCH (09:31)
[2023-03-01] MEDS: PANTOPRAZOLE 40 MG TABLET PO SCH (09:32)
--- NOTE | 2023-03-01 11:11 | P.NPCON ---
History of Present Illness - Reason for Consult acute renal failure - History of Present Illness Patient is an 82-year-old female with history of hypertension, coronary artery disease status post CABG, type 2 diabetes, possible underlying chronic kidney disease. Previous labs not available for comparison. Patient is admitted to the hospital with complaints of increased weakness and dizziness she is also been having nausea.. Patient was noted to be in first-degree AV block with heart rate in the 40s and as low as 24 bpm. Patient is currently maintained on dopamine. Systolic blood pressure was documented in the 90s yesterday. Patient was maintained on metoprolol at home along with Cozaar. No diuretics. Currently maintained on IV fluids. Patient has voided. Serum creatinine was 2.2 mg/dL on admission and now 2.37. Potassium was mildly elevated at 5.2. Review of Systems As per HPI, other systems negative Past Medical History Past Medical History: Diabetes Mellitus, Hyperlipidemia, Hypertension History of Any Multi-Drug Resistant Organisms: None Reported Past Surgical History: Appendectomy, Cholecystectomy, Coronary Bypass/CABG, Hysterectomy, Tonsillectomy Past Anesthesia/Blood Transfusion Reactions: No Reported Reaction Past Psychological History: No Psychological Hx Reported Smoking Status: Never smoker Past Alcohol Use History: None Reported Past Drug Use History: None Reported Medications and Allergies Home Medications Medication Instructions Recorded Confirmed Type Aspirin [Adult Low Dose Aspirin EC] 1 tab PO DAILY 08/22/22 02/28/23 History Simvastatin [Zocor] 20 tab PO HS 08/22/22 02/28/23 History amLODIPine [Norvasc] 5 tab PO BID 08/22/22 02/28/23 History sitaGLIPtin PHOS/metFORMIN HCL 1 tab PO DAILY 08/22/22 02/28/23 History [Janumet 50-1,000 mg Tablet] Cholecalciferol [Vitamin D3 (25 50 mcg PO DAILY 02/28/23 02/28/23 History Mcg = 1000 Iu)] Cyanocobalamin (Vitamin B-12) 1,000 mcg PO MOWEFR 02/28/23 02/28/23 History [Vitamin B-12] Doxazosin [Cardura] 2 mg PO HS 02/28/23 02/28/23 History Losartan Potassium [Cozaar] 100 mg PO DAILY 02/28/23 02/28/23 History Metoprolol Succinate [Toprol XL] 200 mg PO DAILY 02/28/23 02/28/23 History Turmeric Root Extract [Turmeric] 500 mg PO DAILY 02/28/23 02/28/23 History Ubidecarenone [Co Q-10] 300 mg PO DAILY 02/28/23 02/28/23 History Allergies Allergy/AdvReac Type Severity Reaction Status Date / Time aspirin Allergy Unknown Verified 02/28/23 19:57 cephalexin Allergy Unknown Verified 02/28/23 19:57 ciprofloxacin [From Cipro] Allergy Unknown Verified 02/28/23 19:57 codeine Allergy Unknown Verified 02/28/23 19:57 Physical Exam Vitals: Vital Signs Temp Pulse Resp BP Pulse Ox 03/01/23 06:00 26 L 29 H 128/59 97 03/01/23 05:30 24 L 24 125/92 99 03/01/23 05:21 98.2 F 03/01/23 05:00 38 L 26 H 109/65 96 03/01/23 04:30 39 L 26 H 134/60 96 03/01/23 04:00 39 L 24 115/96 97 03/01/23 03:30 39 L 26 H 121/48 97 03/01/23 03:00 40 L 24 123/73 97 03/01/23 02:00 40 L 24 127/74 97 03/01/23 01:30 40 L 26 H 120/81 97 03/01/23 01:00 40 L 22 126/87 96 03/01/23 00:30 40 L 24 124/53 97 03/01/23 00:00 40 L 24 117/52 95 02/28/23 23:30 41 L 22 107/63 96 02/28/23 23:00 40 L 18 92/44 97 02/28/23 22:24 38 L 24 109/50 97 02/28/23 21:06 35 L 18 139/83 97 02/28/23 20:33 35 L 18 142/83 93 L 02/28/23 17:35 98.9 F 71 16 170/85 96 Intake and Output 02/28/23 03/01/23 03/01/23 22:59 06:59 14:59 Intake Total 1.722 40.57 Balance 1.722 40.57 Intake: Intake, IV Titration 1.722 40.57 Amount DOPamine DRIP 800 mg In 1.722 40.57 Dextrose/Water 1 250ml. bag @ 2 MCG/KG/MIN 2.296 mls/hr IV .Q24H [facility] Rx#: [id number] Other: Weight 61.235 kg Patient is awake, comfortable, in no acute distress Examination of the heart S1 and S2 Examination of the lungs decreased breath sounds at the bases Abdomen is soft nontender Examination lower extremity shows no evidence of edema PHYSICIAN RELATIONS SPECIALIST exam grossly intact Results - Lab Results Most recent lab results Calcium 9.0 mg/dL (8.4-10.2) 03/01/23 04:15 Phosphorus 5.2 mg/dL (2.5-4.5) H 03/01/23 04:15 Magnesium 2.0 mg/dL (1.6-2.3) 03/01/23 04:15 03/01/23 04:15 03/01/23 04:15 Assessment and Plan Assessment: 1. Acute kidney injury mostly associated with hypotension and bradycardia currently nonoliguric. Rule out urine retention. Patient is maintained on high dose of Cozaar which I will hold due to hyperkalemia as well. Blood pressure remains borderline and the systolic in the 120s currently. Ultrasound shows small kidneys around 7.2 and 7.4 cm. No hydronephrosis noted. 2. Rule out chronic kidney disease. Previous labs not available for comparison 3. Hypertension blood pressure currently on the lower side 4. Bradycardia with first-degree AV block currently off of beta blockers and maintained on dopamine. HEENT followed by cardiology 5. Coronary artery disease status post coronary artery bypass surgery Plan: Hold Cozaar Continue IV fluids Check bladder scan and rule out urine retention Repeat labs in a.m.
[2023-03-01 12:07] LABS: Glucose,Whole Blood 195 mg/dL (70-110)
[2023-03-01] MEDS: SODIUM CHLORIDE 0.9% 1,000 ML IV SCH ×2 (12:26)
--- NOTE | 2023-03-01 14:35 | CA ---
Transthoracic Echo Report Name: Felicitas Nielsen Age: 82 Gender: F : 1940 Exam Date: 03/01/2023 09:10 Exam Location: [facility] Ht (in): 66 Wt (lb): 135 Ordering Physician: Andriy Barnett MD ([id number]) Attending/Referring Phys: Reducing System Operator Elham Perez RDCS Procedure CPT: Indications: EF Cardiac Hx: TAVR Technical Quality: Good Contrast 1: Total Dose (mL): Contrast 2: Total Dose (mL): MEASUREMENTS (Male / Female) Normal Values 2D ECHO LV Diastolic Diameter PLAX 4.1 cm 4.2 - 5.9 / 3.9 - 5.3 cm LV Systolic Diameter PLAX 2.6 cm IVS Diastolic Thickness 1.1 cm 0.6 - 1.0 / 0.6 - 0.9 cm LVPW Diastolic Thickness 1.2 cm 0.6 - 1.0 / 0.6 - 0.9 cm LV Relative Wall Thickness 0.6 RV Internal Dim ED PLAX 2.9 cm LA Systolic Diameter LX 4.8 cm 3.0 - 4.0 / 2.7 - 3.8 cm LA Volume 76.9 cm??? 18 - 58 / 22 - 52 cm??? M-MODE Aortic Root Diameter MM 3.2 cm MV E Point Septal Separation 1.3 cm AV Cusp Separation MM 2.0 cm DOPPLER AV Peak Velocity 259.8 cm/s AV Peak Gradient 27.0 mmHg AV Mean Velocity 167.6 cm/s AV Mean Gradient 13.5 mmHg AV Velocity Time Integral 62.6 cm LVOT Peak Velocity 160.6 cm/s LVOT Peak Gradient 10.3 mmHg MV Peak Velocity 255.7 cm/s MV Peak Gradient 26.2 mmHg MV Mean Velocity 137.4 cm/s MV Mean Gradient 9.0 mmHg MV Velocity Time Integral 90.7 cm MV Area PHT 1.6 cm??? MR Peak Velocity 518.2 cm/s MR Peak Gradient 107.4 mmHg Mitral E Point Velocity 197.2 cm/s Mitral A Point Velocity 126.9 cm/s Mitral E to A Ratio 1.6 MV Deceleration Time 461.1 ms MV E' Velocity 5.8 cm/s Mitral E to MV E' Ratio 33.8 TR Peak Velocity 336.6 cm/s TR Peak Gradient 45.3 mmHg Right Ventricular Systolic Press 49.9 mmHg FINDINGS Left Ventricle Left ventricular ejection fraction is estimated at 65-70 %. Mildly increased septal wall thickness. Mildly increased posterior wall thickness. Normal left ventricular wall motion. Left ventricular cavity size normal. Right Ventricle Normal right ventricular size and function. Moderate pulmonary hypertension. Right Atrium Normal right atrial size. Left Atrium Severely increased left atrial diameter. Severely increased left atrial volume. Mildly increased left atrial area. Mitral Valve Moderate mitral annular calcification. Moderate mitral regurgitation. MV stenosis with max gradient of 26 mmHg and mean gradient of 9 mmHg Aortic Valve Normal bioprostetic AOV with max gradient of 27 mmHg and mean gradient of 13 mmHg. no aortic regurgitation Tricuspid Valve Structurally normal tricuspid valve. Mild tricuspid regurgitation. Pulmonic Valve Structurally normal pulmonic valve. Trace to mild pulmonic regurgitation. Pericardium Normal pericardium. No pericardial effusion. Aorta Normal size aortic root and proximal ascending aorta. CONCLUSIONS Left ventricular ejection fraction 65-70% Mildly increased left ventricular wall thickness RVSP 50 Moderate to severely dilated left atrium Moderate mitral regurgitation, mild to moderate mitral stenosis Normally functioning bioprosthetic aortic valve with a maximum gradient 27 mmHg and a mean gradient 13 mmHg No aortic regurgitation Previewed by: Dr. Avery Ramsey DO (Electronically Signed) Final Date: 01 Mar 2023 14:34
[2023-03-01 16:04] LABS: Glucose,Whole Blood 179 mg/dL (70-110)
--- NOTE | 2023-03-01 18:36 | P.PN ---
Subjective Progress Note Date: 03/01/23 Patient is a 82-year-old female with PMH of CAD status post CABG, hypertension, diabetes, hyperlipidemia presented to the ED for lightheadedness and syncopal episode. She was noted to be in complete heart block with heart rate in the 30s and 40s in the ED. She was given glucagon and started on dopamine drip and admitted to ICU for further management. Patient was seen and examined. No acute events overnight. Heart rate currently in the 40s. Patient reports lightheadedness and nausea with even slight movement of her head. She denies any chest pain, shortness breath or palpitations. No nausea or vomiting. No fever or chills. General: non toxic, no distress, appears at stated age Derm: warm, dry Head: atraumatic, normocephalic, symmetric Eyes: EOMI, no lid lag, anicteric sclera Cardiovascular: Bradycardia, no murmur Lungs: CTA bilateral, no rhonchi, no rales , no accessory muscle use Ext: no gross muscle atrophy, no edema, no contractures Neuro: no focal neuro deficits Psych: Alert, oriented, appropriate affect Symptomatic bradycardia Complete heart block Acute kidney injury Hyperkalemia Normocytic anemia Chronic conditions: CAD status post CABG, hypertension, diabetes, hyperlipidemia Based on my assessment of this patient, this patient meets a high complexity level of care. Patient has an acute diagnosis of complete heart block that poses a threat to life or bodily function. She is currently on dopamine drip at 8 mcg/kg/m. Cardiology has been consulted and plans for biventricular pacemaker tomorrow. Continue telemetry monitoring. Discontinue metoprolol. Patient remains in the medical ICU. Patient with creatinine of 2.37 with no baseline. She is not aware of any chronic kidney disease. Renal ultrasound shows renal atrophy. Possibly acute kidney injury on chronic kidney disease. Hold MARIO inhibitor. Continue normal saline at 50 mL per hour. Plans to repeat BMP tomorrow morning. Nephrology consulted. Hemoglobin of 10.2 with MCV of 101.5. No signs of active bleeding at this time. No need for blood transfusion. Repeat CBC tomorrow morning. Heparin SQ for DVT prophylaxis. Full code. Patient needs her decision maker if she can't make decisions for herself. I have reviewed the following customer sales consultant notes: Cardiology note 03/01, plans for biventricular pacemaker tomorrow. Nephrology note 03/01, DC Losartan, continue IV hydration, repeat BMP tomorrow morning. I have reviewed the results of the following tests: CBC shows hemoglobin of 10.5 and MCV of 11.5. BMP shows potassium of 5.2, bicarbonate 21, BUN of 54, creatinine 2.37, glucose 192. Renal ultrasound shows renal atrophy. Echocardiogram shows EF of 65-70% with increased LV wall thickness, moderate to severe dilated left atrium, moderate MR, mild to moderate MS along with normally functioning bioprosthetic AV valve. I have ordered the following tests: CBC and BMP ordered for tomorrow morning. Urinalysis is ordered. I have discussed the care of this patient with the following independent historian: None. I have independently interpreted the following test below: None. I have discussed the management of this patient with the following physician: None. Objective - Vital Signs Vital signs: Vital Signs Temp 98.2 F 03/01/23 05:21 Pulse 26 L 03/01/23 06:00 Resp 29 H 03/01/23 06:00 BP 128/59 03/01/23 06:00 Pulse Ox 97 03/01/23 06:00 FiO2 Intake & Output 02/28/23 03/01/23 03/01/23 18:59 06:59 18:59 Intake Total 42.292 450 Output Total 300 Balance 42.292 150 Weight 61.235 kg 61.235 kg Intake: IV 450 Dextrose 5%-0.9% NaCl 1, 450 000 ml @ 75 mls/hr IV . [id number] [facility] Rx#:[id number] Intake, IV Titration 42.292 Amount DOPamine DRIP 800 mg In 42.292 Dextrose/Water 1 250ml. bag @ 5 MCG/KG/MIN 5.741 mls/hr IV .Q24H [facility] Rx#: [id number] Output: Urine 300 Other: Voiding Method External Catheter # Voids 2 - Labs CBC & Chem 7: 03/01/23 04:15 03/01/23 04:15 Labs: Abnormal Lab Results - Last 24 Hours (Table) 02/28/23 03/01/23 03/01/23 Range/Units 17:58 00:30 04:15 RBC 3.25 L (3.80-5.40) m/uL Hgb 10.2 L (11.4-16.0) gm/dL Hct 33.0 L (34.0-46.0) % MCV 101.5 H (80.0-100.0) fL MCHC 30.9 L (31.0-37.0) g/dL Neutrophils # 7.9 H (1.3-7.7) k/uL Lymphocytes # 0.9 L (1.0-4.8) k/uL Potassium (3.5-5.1) mmol/L Carbon Dioxide (22-30) mmol/L BUN 47 H (7-17) mg/dL Creatinine 2.22 H (0.52-1.04) mg/dL Glucose 184 H (74-99) mg/dL POC Glucose (mg/dL) 218 H (70-110) mg/dL Phosphorus (2.5-4.5) mg/dL Alkaline Phosphatase 135 H (38-126) U/L 03/01/23 03/01/23 03/01/23 Range/Units 04:15 06:29 12:06 RBC (3.80-5.40) m/uL Hgb (11.4-16.0) gm/dL Hct (34.0-46.0) % MCV (80.0-100.0) fL MCHC (31.0-37.0) g/dL Neutrophils # (1.3-7.7) k/uL Lymphocytes # (1.0-4.8) k/uL Potassium 5.2 H (3.5-5.1) mmol/L Carbon Dioxide 21 L (22-30) mmol/L BUN 54 H (7-17) mg/dL Creatinine 2.37 H (0.52-1.04) mg/dL Glucose 198 H (74-99) mg/dL POC Glucose (mg/dL) 210 H 195 H (70-110) mg/dL Phosphorus 5.2 H (2.5-4.5) mg/dL Alkaline Phosphatase (38-126) U/L 03/01/23 Range/Units 16:03 RBC (3.80-5.40) m/uL Hgb (11.4-16.0) gm/dL Hct (34.0-46.0) % MCV (80.0-100.0) fL MCHC (31.0-37.0) g/dL Neutrophils # (1.3-7.7) k/uL Lymphocytes # (1.0-4.8) k/uL Potassium (3.5-5.1) mmol/L Carbon Dioxide (22-30) mmol/L BUN (7-17) mg/dL Creatinine (0.52-1.04) mg/dL Glucose (74-99) mg/dL POC Glucose (mg/dL) 179 H (70-110) mg/dL Phosphorus (2.5-4.5) mg/dL Alkaline Phosphatase (38-126) U/L
[2023-03-01 20:27] LABS: Glucose,Whole Blood 214 mg/dL (70-110)
[2023-03-01] MEDS ORDERED: ONDANSETRON 4 MG/2 ML VIAL IVP PRN (20:28)
[2023-03-01] MEDS: ATORVASTATIN 10 MG TAB PO SCH (21:05)
[2023-03-01] MEDS: DOXAZOSIN 2 MG TAB PO SCH (21:09)
[2023-03-02 00:23] LABS: Glucose,Whole Blood 206 mg/dL (70-110)
[2023-03-02] MEDS: HEPARIN SODIUM,PORCINE/PF 5,000 UNIT/0.5 ML SYRINGE SQ SCH ×4 (00:25→22:40)
[2023-03-02] MEDS: DOPamine DRIP 800 MG in DEXTROSE/WATER 1 250ML.BAG IV SCH (01:12)
[2023-03-02 04:06] LABS: Basophils % (A) 0 %; Eosinophils # (A) 0.1 k/uL (0-0.7); Eosinophils % (A) 1 %; HGB 9.8 gm/dL (11.4-16.0); Lymphocytes # (A) 1.4 k/uL (1.0-4.8); Lymphocytes % (A) 14 %; MCHC 31.8 g/dL (31.0-37.0); MCV 100.7 fL (80.0-100.0); Mean Platelet Volume 10.9; Monocytes # (A) 0.9 k/uL (0-1.0); Monocytes % (A) 9 %; Neutrophils % (A) 74 %; Platelet Count 152 k/uL (150-450); RBC 3.08 m/uL (3.80-5.40); WBC 9.5 k/uL (3.8-10.6)
[2023-03-02 04:28] LABS: Calcium 8.6 mg/dL (8.4-10.2); Potassium 4.7 mmol/L (3.5-5.1)
[2023-03-02] MEDS: DEXTROSE 5%-0.9% NACL 1,000 ML IV SCH (04:28)
[2023-03-02] MEDS: INSULIN ASPART (NovoLOG) 100 UNIT/ML VIAL SQ SCH ×4 (06:25→22:35)
[2023-03-02] MEDS: SODIUM CHLORIDE 0.9% 1,000 ML IV SCH ×2 (06:32)
[2023-03-02] MEDS ORDERED: CLINDAMYCIN 900 MG in DEXTROSE 5% IN WATER 50 ML IVPB PRN ×2 (07:00)
[2023-03-02] MEDS: PANTOPRAZOLE 40 MG TABLET PO SCH (07:04)
[2023-03-02 07:10] LABS: Glucose,Whole Blood 225 mg/dL (70-110)
[2023-03-02] MEDS ORDERED: CLINDAMYCIN 600 MG in SODIUM CHLORIDE 0.9% IRRIG BTL 250 ML IRRIGATION ONE (07:16)
[2023-03-02] MEDS: ASPIRIN 81 MG PO SCH (08:06)
[2023-03-02] MEDS ORDERED: VANCOMYCIN 1,000 MG in SODIUM CHLORIDE 0.9% 250 ML IVPB ONE (09:00)
--- NOTE | 2023-03-02 09:13 | P.PN ---
Subjective Progress Note Date: 03/02/23 The patient is an 82-year-old female who is currently admitted to the hospital with syncope. She was found to have complete heart block and therefore will be undergoing permanent pacemaker implantation. At the time of her arrival, her home medications included high-dose beta blockers, therefore she has now had over 72 hour washout. She continues to have episodes of complete heart block. Echocardiogram reveals LV function at 65-70% with severely increased left atrial diameter of volume, moderate mitral stenosis and regurgitation. Normal bioprosthetic aortic valve with no significant regurgitation. The patient states she feels well, but has been restricted to bed rest. Her main complaint is hip discomfort. No chest pain, chest pressure, or shortness of breath. GENERAL: Well-appearing, well-nourished and in no acute distress. NECK: Supple without JVD or thyromegaly. LUNGS: Breath sounds clear to auscultation bilaterally. Respiration equal and unlabored. No wheezes, rales or rhonchi. HEART: Regular rate and rhythm. Systolic murmur. No rubs or gallops. S1 and S2 heard. EXTREMITIES: Normal range of motion, no edema. No clubbing or cyanosis. Peripheral pulses intact and strong. VITALS: Blood pressure 158/78, pulse 73, respiratory rate 20, SpO2 98% on room air TELEMETRY: Sinus rhythm with intermittent episodes of complete heart block LABS: WBC 9.5, hemoglobin 9.8, hematocrit 31.0, platelets 152, sodium 137, potassium 4.7, BUN 56, creatinine 2.6 IMPRESSION: Mitral stenosis, mild to moderate Syncope and collapse Intermittent complete heart block Acute kidney injury History of CABG, approximately 10 years prior at [facility] History of aortic valve replacement History hypertension History diabetes PLAN: Proceed with biventricular pacemaker implantation for intermittent heart block despite beta devonte washout Risks of procedure were discussed with the patient by implanting physician, Dr. Barnett I am dictating on behalf of Dr Andriy Barnett's history/physical and assessment/plan. Objective - Vital Signs Vital signs: Vital Signs Temp 98.6 F 03/02/23 04:00 Pulse 73 03/02/23 07:00 Resp 20 03/02/23 07:00 BP 158/78 03/02/23 07:00 Pulse Ox 98 03/02/23 07:00 FiO2 Intake & Output 03/01/23 03/02/23 03/02/23 18:59 06:59 18:59 Intake Total 450 1664.075 75 Output Total 300 500 0 Balance 150 1164.075 75 Weight 66.3 kg Intake: IV 450 1200 75 Dextrose 5%-0.9% NaCl 1, 450 1200 75 000 ml @ 75 mls/hr IV . [id number] [facility] Rx#:[id number] Intake, IV Titration 224.075 Amount DOPamine DRIP 800 mg In 224.075 Dextrose/Water 1 250ml. bag @ 5 MCG/KG/MIN 5.741 mls/hr IV .Q24H [facility] Rx#: [id number] Oral 240 Output: Urine 300 500 0 Other: Voiding Method External Catheter External Catheter # Voids 2 1 - Labs CBC & Chem 7: 03/02/23 03:34 03/02/23 03:34 Labs: Abnormal Lab Results - Last 24 Hours (Table) 03/01/23 03/01/23 03/01/23 Range/Units 12:06 16:03 20:25 RBC (3.80-5.40) m/uL Hgb (11.4-16.0) gm/dL Hct (34.0-46.0) % MCV (80.0-100.0) fL Carbon Dioxide (22-30) mmol/L BUN (7-17) mg/dL Creatinine (0.52-1.04) mg/dL Glucose (74-99) mg/dL POC Glucose (mg/dL) 195 H 179 H 214 H (70-110) mg/dL 03/02/23 03/02/23 03/02/23 Range/Units 00:22 03:34 03:34 RBC 3.08 L (3.80-5.40) m/uL Hgb 9.8 L (11.4-16.0) gm/dL Hct 31.0 L (34.0-46.0) % MCV 100.7 H (80.0-100.0) fL Carbon Dioxide 20 L (22-30) mmol/L BUN 56 H (7-17) mg/dL Creatinine 2.60 H (0.52-1.04) mg/dL Glucose 211 H (74-99) mg/dL POC Glucose (mg/dL) 206 H (70-110) mg/dL 03/02/23 Range/Units 07:09 RBC (3.80-5.40) m/uL Hgb (11.4-16.0) gm/dL Hct (34.0-46.0) % MCV (80.0-100.0) fL Carbon Dioxide (22-30) mmol/L BUN (7-17) mg/dL Creatinine (0.52-1.04) mg/dL Glucose (74-99) mg/dL POC Glucose (mg/dL) 225 H (70-110) mg/dL
[2023-03-02] MEDS ORDERED: fentaNYL (PF) 50 MCG/ML 2 ML AMP ONE (10:43)
[2023-03-02] MEDS ORDERED: MIDAZOLAM 2 MG/2 ML VIAL ONE (10:43)
--- NOTE | 2023-03-02 10:49 | P.PN ---
Subjective Patient is seen for follow-up for acute kidney injury associated with significant bradycardia. Patient remains on dopamine. She is also maintained on IV fluids. Scheduled for permanent pacemaker today. Serum creatinine at 2.6 from 2.3 yesterday. No previous labs available for comparison. Urine output documented at 800 mL for 24 hours. No complaints today. Objective - Vital Signs Vital signs: Vital Signs Temp 98.0 F 03/02/23 08:00 Pulse 70 03/02/23 10:00 Resp 18 03/02/23 10:00 BP 156/61 03/02/23 10:00 Pulse Ox 97 03/02/23 10:00 FiO2 Intake & Output 03/01/23 03/02/23 03/02/23 18:59 06:59 18:59 Intake Total 450 1664.075 300 Output Total 300 500 100 Balance 150 1164.075 200 Weight 66.3 kg Intake: IV 450 1200 300 Dextrose 5%-0.9% NaCl 1, 450 1200 300 000 ml @ 75 mls/hr IV . [id number] [facility] Rx#:[id number] Intake, IV Titration 224.075 Amount DOPamine DRIP 800 mg In 224.075 Dextrose/Water 1 250ml. bag @ 5 MCG/KG/MIN 5.741 mls/hr IV .Q24H [facility] Rx#: [id number] Oral 240 Output: Urine 300 500 100 Other: Voiding Method External Catheter External Catheter External Catheter # Voids 2 1 1 - Exam Awake, comfortable, no acute distress Examination of the heart S1 and S2 Examination lungs bilateral breath sounds are heard Abdomen is soft nontender Examination of lower extremities shows no significant edema [employer] COM[employer]ER exam grossly intact - Labs CBC & Chem 7: 03/02/23 03:34 03/02/23 03:34 Labs: Abnormal Lab Results - Last 24 Hours (Table) 03/01/23 03/01/23 03/01/23 Range/Units 12:06 16:03 20:25 RBC (3.80-5.40) m/uL Hgb (11.4-16.0) gm/dL Hct (34.0-46.0) % MCV (80.0-100.0) fL Carbon Dioxide (22-30) mmol/L BUN (7-17) mg/dL Creatinine (0.52-1.04) mg/dL Glucose (74-99) mg/dL POC Glucose (mg/dL) 195 H 179 H 214 H (70-110) mg/dL 03/02/23 03/02/23 03/02/23 Range/Units 00:22 03:34 03:34 RBC 3.08 L (3.80-5.40) m/uL Hgb 9.8 L (11.4-16.0) gm/dL Hct 31.0 L (34.0-46.0) % MCV 100.7 H (80.0-100.0) fL Carbon Dioxide 20 L (22-30) mmol/L BUN 56 H (7-17) mg/dL Creatinine 2.60 H (0.52-1.04) mg/dL Glucose 211 H (74-99) mg/dL POC Glucose (mg/dL) 206 H (70-110) mg/dL 03/02/23 Range/Units 07:09 RBC (3.80-5.40) m/uL Hgb (11.4-16.0) gm/dL Hct (34.0-46.0) % MCV (80.0-100.0) fL Carbon Dioxide (22-30) mmol/L BUN (7-17) mg/dL Creatinine (0.52-1.04) mg/dL Glucose (74-99) mg/dL POC Glucose (mg/dL) 225 H (70-110) mg/dL Assessment and Plan Assessment: 1. Acute kidney injury mostly associated with hypotension and bradycardia currently nonoliguric. Ultrasound shows small kidneys around 7.2 and 7.4 cm. No hydronephrosis noted. UA is pending 2. Rule out chronic kidney disease. Previous labs not available for comparison 3. Hypertension, blood pressure was on the lower side, therefore Cozaar was held. Potassium was also mildly elevated. Currently improved 4. Bradycardia with first-degree AV block currently off of beta blockers and maintained on dopamine. Scheduled for pacemaker placement 5. Coronary artery disease status post coronary artery bypass surgery Plan: Check UA Continue with gentle IV hydration as patient is not eating much Repeat labs in a.m.
[2023-03-02] MEDS ORDERED: IOPAMIDOL-370 100ML BTL INJ ONE (11:08)
[2023-03-02 11:19] LABS: Appearance,Urine Clear (Clear); Bilirubin,Urine Negative (Negative); Blood,Urine Trace (Negative); Color,Urine Yellow; Glucose,Urine (UA) Negative (Negative); Ketones,Urine Negative (Negative); Leukocyte Esterase,Urine Negative (Negative); Nitrite,Urine Negative (Negative); Protein,Urine 2+ (Negative); RBC,Urine <1 /hpf (0-5); Specific Gravity,Urine 1.014 (1.001-1.035); Squamous Epithelial Cell,Urine <1 /hpf (0-4); Urobilinogen,Urine <2.0 mg/dL (<2.0); WBC,Urine <1 /hpf (0-5)
[2023-03-02] MEDS ORDERED: LIDOCAINE 1% INJ 10MG/ML (20 ML MDV) ONE (11:19)
[2023-03-02] MEDS ORDERED: LIDOCAINE 1% INJ 10MG/ML (20 ML MDV) SQ ONE (11:29)
--- NOTE | 2023-03-02 12:30 | P.EPPROC ---
- EP Procedure Note Electrophysiology Procedure Note: Diagnosis Symptomatic bradycardia associated with syncope and presyncope secondary 2:1 AV block that has not resolved even after 3-4 days of discontinuing beta blockers, IV dopamine and IV glucagon 2-1 AV block continues intermittently with heart rates less than 40 beats a minute on dopamine Narrow QRS escape rhythm likely block at the AV albert level Procedure Dual-chamber pacemaker implantation Left upper extremity venogram Details Patient was brought to the EP lab in a fasting state. Written informed consent was obtained prior to the procedure. Conscious sedation provided by anesthesia. Left upper extremity venogram performed. Patent subclavian vein and axillary venous system on the left side. IV antibiotics administered. Local anesthesia administered. A 4 cm incision made in the pectoral area. Subfascial pocket made. Venous accesses obtained Venous sheaths placed. Leads placed in the right heart Atrial lead position the right atrial appendage. Medtronic 52 cm active fix lead screwed in the right atrial appendage stump. Patient is status post open- heart surgery greater than 4 years back P waves 1.1 mV, pacing threshold 1 warted 0.4 ms and pacing impedance 361 ohms. 10 V negative RV lead position in the RV apex. Passive lead, Medtronic 58 cm Pacing impedance 1140 ohms, patient paced at 30 bpm Pacing threshold 0.5 V at 0.4 ms 10 V test negative Device automotive artist Medtronic KB, dual-chamber pacemaker, MRI Antibiotic pouch placed in the pocket Dual-chamber pacemaker device connected to the leads and placed in the subfascial pocket Patient tolerated the procedure well without acute complications Pacemaker programming DDD 60-1:30 bpm normal AV delay
[2023-03-02] MEDS ORDERED: ACETAMINOPHEN IV (For NPO) 1,000 MG in EMPTY BAG 1 BAG IVPB ONE (12:36)
--- NOTE | 2023-03-02 12:36 | P.PN ---
Progress Note - Text Successful dual-chamber pacemaker implantation for persistent 2-1 AV block with significant bradycardia Patient presented with syncope and presyncope AV block persisted despite discontinuation of beta blockers for greater than 3-4 days Successful dual-chamber pacemaker implantation Resume metoprolol succinate 200 mg by mouth daily for tachybradycardia syndrome along with losartan and amlodipine
--- NOTE | 2023-03-02 15:32 | XR ---
EXAMINATION TYPE: XR chest 1V portable DATE OF EXAM: 03/02/2023 COMPARISON: 03/10/2023 HISTORY: Postbronchoscopy TECHNIQUE: Single frontal view of the chest is obtained. FINDINGS: Limited inspiration with surgical clips in right upper quadrant. Hypertrophic and degenera tive changes of the spine. Cardiac device with postsurgical changes. Severe arthropathy of the should ers. There is a coarsened interstitium. No focal consolidation. Linear changes left lung base with ti ny effusion or pleural thickening are stable from prior exam. IMPRESSION: 1. Mild coarsened interstitium persists could be on the basis of chronic interstitial lung disease or mild venous congestion. 2. Small left pleural effusion or pleural thickening stable.
--- NOTE | 2023-03-02 16:23 | P.PN ---
Subjective Progress Note Date: 03/02/23 Patient is a 82-year-old female with PMH of CAD status post CABG, hypertension, diabetes, hyperlipidemia presented to the ED for lightheadedness and syncopal episode. She was noted to be in complete heart block with heart rate in the 30s and 40s in the ED. She was given glucagon and started on dopamine drip and admitted to ICU for further management. Patient was seen and examined. No acute events overnight. She is status post biventricular pacemaker. Heart rate in the 80s. Patient reports complete resolution of lightheadedness and nausea. She denies any chest pain, shortness breath or palpitations. No nausea or vomiting. No fever or chills. General: non toxic, no distress, appears at stated age Derm: warm, dry Head: atraumatic, normocephalic, symmetric Eyes: EOMI, no lid lag, anicteric sclera Cardiovascular: Normal S1 S2, no murmur Lungs: CTA bilateral, no rhonchi, no rales , no accessory muscle use Ext: no gross muscle atrophy, no edema, no contractures Neuro: no focal neuro deficits Psych: Alert, oriented, appropriate affect Symptomatic bradycardia Complete heart block Acute kidney injury Hyperkalemia Normocytic anemia Chronic conditions: CAD status post CABG, hypertension, diabetes, hyperlipidemia Based on my assessment of this patient, this patient meets a moderate complexity level of care. Patient has an acute diagnosis of complete heart block that poses a threat to life or bodily function. Cardiology has been consulted and she is status post biventricular pacemaker. Continue telemetry monitoring. Discontinue metoprolol. Patient remains in the medical ICU. Patient with creatinine of 2.6 with no baseline. She is not aware of any chronic kidney disease. Renal ultrasound shows renal atrophy. Possibly acute kidney injury on chronic kidney disease. Hold MARIO inhibitor. Continue normal saline at 50 mL per hour. Plans to repeat BMP tomorrow morning. Nephrology on board. Hemoglobin of 9.8 with MCV of 100.7. No signs of active bleeding at this time. No need for blood transfusion. Repeat CBC tomorrow morning. Heparin SQ for DVT prophylaxis. Full code. Patient needs her decision maker if she can't make decisions for herself. I have reviewed the following retirement consultant notes: Nephrology note 03/02, check UA, continue IV hydration, repeat BMP tomorrow morning. I have reviewed the results of the following tests: CBC shows hemoglobin of 9.8 and MCV of 100.7. BMP shows bicarbonate 20, BUN of 56, creatinine 2.6, glucose 211. UA shows 2+ protein and trade blood. I have ordered the following tests: CBC and BMP ordered for tomorrow morning. I have discussed the care of this patient with the following independent historian: None. I have independently interpreted the following test below: None. I have discussed the management of this patient with the following physician: None. Objective - Vital Signs Vital signs: Vital Signs Temp 98.0 F 03/02/23 08:00 Pulse 85 03/02/23 13:00 Resp 20 03/02/23 13:00 BP 131/63 03/02/23 13:00 Pulse Ox 90 L 03/02/23 13:00 FiO2 Intake & Output 03/01/23 03/02/23 03/02/23 18:59 06:59 18:59 Intake Total 450 1664.075 406 Output Total 300 500 100 Balance 150 1164.075 306 Weight 66.3 kg Intake: IV 450 1200 406 0.9 50 Dextrose 5%-0.9% NaCl 1, 450 1200 300 000 ml @ 75 mls/hr IV . [id number] [facility] Rx#:[id number] Intake, IV Titration 224.075 Amount DOPamine DRIP 800 mg In 224.075 Dextrose/Water 1 250ml. bag @ 5 MCG/KG/MIN 5.741 mls/hr IV .Q24H [facility] Rx#: [id number] Oral 240 Output: Urine 300 500 100 Other: Voiding Method External Catheter External Catheter External Catheter # Voids 2 1 1 - Labs CBC & Chem 7: 03/02/23 03:34 03/02/23 03:34 Labs: Abnormal Lab Results - Last 24 Hours (Table) 03/01/23 03/02/23 03/02/23 Range/Units 20:25 00:22 03:34 RBC 3.08 L (3.80-5.40) m/uL Hgb 9.8 L (11.4-16.0) gm/dL Hct 31.0 L (34.0-46.0) % MCV 100.7 H (80.0-100.0) fL Carbon Dioxide (22-30) mmol/L BUN (7-17) mg/dL Creatinine (0.52-1.04) mg/dL Glucose (74-99) mg/dL POC Glucose (mg/dL) 214 H 206 H (70-110) mg/dL Urine Protein (Negative) Urine Blood (Negative) 03/02/23 03/02/23 03/02/23 Range/Units 03:34 07:09 10:40 RBC (3.80-5.40) m/uL Hgb (11.4-16.0) gm/dL Hct (34.0-46.0) % MCV (80.0-100.0) fL Carbon Dioxide 20 L (22-30) mmol/L BUN 56 H (7-17) mg/dL Creatinine 2.60 H (0.52-1.04) mg/dL Glucose 211 H (74-99) mg/dL POC Glucose (mg/dL) 225 H (70-110) mg/dL Urine Protein 2+ H (Negative) Urine Blood Trace H (Negative)
[2023-03-02 16:51] LABS: Glucose,Whole Blood 149 mg/dL (70-110)
[2023-03-02] MEDS: CLINDAMYCIN 900 MG in DEXTROSE 5% IN WATER 50 ML IVPB SCH ×4 (16:55→22:40)
[2023-03-02] MEDS ORDERED: traMADol 50 MG TAB PO STA (18:54)
[2023-03-02] MEDS ORDERED: ACETAMINOPHEN TAB 325 MG TAB PO PRN (19:00)
[2023-03-02] MEDS: ATORVASTATIN 10 MG TAB PO SCH (19:22)
[2023-03-02 19:51] LABS: Glucose,Whole Blood 163 mg/dL (70-110)
[2023-03-02] MEDS: DOXAZOSIN 2 MG TAB PO SCH (22:35)
[2023-03-03] MEDS: CLINDAMYCIN 900 MG in DEXTROSE 5% IN WATER 50 ML IVPB SCH ×2 (04:10)
[2023-03-03] MEDS ORDERED: traMADol 50 MG TAB PO STA (05:38)
[2023-03-03] MEDS: PANTOPRAZOLE 40 MG TABLET PO SCH (05:49)
[2023-03-03 06:27] LABS: Glucose,Whole Blood 105 mg/dL (70-110)
[2023-03-03] MEDS: INSULIN ASPART (NovoLOG) 100 UNIT/ML VIAL SQ SCH ×4 (06:31→20:10)
[2023-03-03] MEDS: HEPARIN SODIUM,PORCINE/PF 5,000 UNIT/0.5 ML SYRINGE SQ SCH ×3 (09:00→23:46)
[2023-03-03] MEDS: METOPROLOL SUCCINATE (ER) 100 MG TAB.ER.24H PO SCH (09:00)
[2023-03-03] MEDS: ASPIRIN 81 MG PO SCH (09:00)
[2023-03-03 11:01] LABS: Calcium 8.3 mg/dL (8.4-10.2); Potassium 4.6 mmol/L (3.5-5.1)
[2023-03-03 11:33] LABS: Glucose,Whole Blood 112 mg/dL (70-110)
--- NOTE | 2023-03-03 13:29 | P.PN ---
Subjective Progress Note Date: 03/03/23 The patient is an 82-year-old female who is currently admitted to the hospital with syncope. She was found to have complete heart block and therefore will be undergoing permanent pacemaker implantation. At the time of her arrival, her home medications included high-dose beta blockers, therefore she has now had over 72 hour washout. She continues to have episodes of complete heart block. Echocardiogram reveals LV function at 65-70% with severely increased left atrial diameter of volume, moderate mitral stenosis and regurgitation. Normal bioprosthetic aortic valve with no significant regurgitation. 03/03 Patient is status post biventricular pacemaker implantation yesterday with Dr. Barnett. Patient was transferred to the cardiac stepdown unit. She denies having any complaints today. No chest pain, no lightheadedness or dizziness. Heart rate this morning is 104, blood pressure 147/69, pulse ox 92% on 2 L nasal cannula. BUN is 48 creatinine 2.26. GENERAL: Well-appearing, well-nourished and in no acute distress. NECK: Supple without JVD or thyromegaly. LUNGS: Breath sounds clear to auscultation bilaterally. Respiration equal and unlabored. No wheezes, rales or rhonchi. HEART: Regular rate and rhythm. Systolic murmur. No rubs or gallops. S1 and S2 heard. EXTREMITIES: Normal range of motion, no edema. No clubbing or cyanosis. Peripheral pulses intact and strong. IMPRESSION: Mitral stenosis, mild to moderate Syncope and collapse Intermittent complete heart block Acute kidney injury History of CABG, approximately 10 years prior at [facility] History of aortic valve replacement History hypertension History diabetes PLAN: Patient is cleared from cardiology for discharge home and continue current medications. Nurse practitioner note has been reviewed, I agree with the documented findings and plan of care. Patient was seen and examined. Objective - Vital Signs Vital signs: Vital Signs Temp 98.3 F 03/03/23 04:00 Pulse 104 H 03/03/23 08:00 Resp 18 03/03/23 08:00 BP 147/69 03/03/23 08:00 Pulse Ox 92 L 03/03/23 09:16 FiO2 Intake & Output 03/02/23 03/03/23 03/03/23 18:59 06:59 18:59 Intake Total 406 870 150 Output Total 100 400 600 Balance 306 470 -450 Intake: IV 406 600 0.9 50 600 Dextrose 5%-0.9% NaCl 1, 300 000 ml @ 75 mls/hr IV . [id number] [facility] Rx#:[id number] Intake, IV Titration 150 Amount Clindamycin 900 mg In 150 Dextrose 5% in Water 50 ml @ 50 mls/hr IVPB Q6H [facility] Rx#:[id number] Oral 120 150 Output: Urine 100 400 600 Other: Voiding Method External Catheter External Catheter External Catheter # Voids 1 - Labs CBC & Chem 7: 03/02/23 03:34 03/03/23 10:02 Labs: Abnormal Lab Results - Last 24 Hours (Table) 03/02/23 03/02/23 03/03/23 Range/Units 16:50 19:48 10:02 BUN 48 H (7-17) mg/dL Creatinine 2.26 H (0.52-1.04) mg/dL Glucose 124 H (74-99) mg/dL POC Glucose (mg/dL) 149 H 163 H (70-110) mg/dL Calcium 8.3 L (8.4-10.2) mg/dL 03/03/23 Range/Units 11:31 BUN (7-17) mg/dL Creatinine (0.52-1.04) mg/dL Glucose (74-99) mg/dL POC Glucose (mg/dL) 112 H (70-110) mg/dL Calcium (8.4-10.2) mg/dL
--- NOTE | 2023-03-03 13:42 | P.PN ---
Subjective Progress Note Date: 03/03/23 Patient is a 82-year-old female with PMH of CAD status post CABG, hypertension, diabetes, hyperlipidemia presented to the ED for lightheadedness and syncopal episode. She was noted to be in complete heart block with heart rate in the 30s and 40s in the ED. She was given glucagon and started on dopamine drip and admitted to ICU for further management. 03/02 Patient was seen and examined. No acute events overnight. She is status post biventricular pacemaker. Heart rate in the 80s. Patient reports complete resolution of lightheadedness and nausea. She denies any chest pain, shortness breath or palpitations. No nausea or vomiting. No fever or chills. 03/03 Patient was seen and examined. She reports no nausea or dizziness. Pacemaker has been interrogated and she is cleared by Cardiology. PT has recommended SNF and insurance authorization is pending. General: non toxic, no distress, appears at stated age Derm: warm, dry Head: atraumatic, normocephalic, symmetric Eyes: EOMI, no lid lag, anicteric sclera Cardiovascular: Normal S1 S2, no murmur Lungs: CTA bilateral, no rhonchi, no rales , no accessory muscle use Ext: no gross muscle atrophy, no edema, no contractures Neuro: no focal neuro deficits Psych: Alert, oriented, appropriate affect Symptomatic bradycardia Complete heart block Acute kidney injury Hyperkalemia Normocytic anemia Chronic conditions: CAD status post CABG, hypertension, diabetes, hyperlipidemia Based on my assessment of this patient, this patient meets a moderate complexity level of care. Patient has an acute diagnosis of complete heart block that poses a threat to life or bodily function. Cardiology has been consulted and she is status post biventricular pacemaker. Continue telemetry monitoring. Discontinue metoprolol. Patient remains in the medical ICU. Patient with creatinine of 2.26 with no baseline. She is not aware of any chronic kidney disease. Renal ultrasound shows renal atrophy. Possibly acute kidney injury on chronic kidney disease. Hold MARIO inhibitor. Continue normal saline at 50 mL per hour. Nephrology on board. Hemoglobin of 9.8 with MCV of 100.7. No signs of active bleeding at this time. No need for blood transfusion. Heparin SQ for DVT prophylaxis. Full code. Patient needs her decision maker if she can't make decisions for herself. I have reviewed the following jewelry consultant notes: None. I have reviewed the results of the following tests: BMP shows BUN of 48, creatinine 2.26, glucose 224, Ca 8.3. I have ordered the following tests: None. I have discussed the care of this patient with the following independent historian: Case discussed with at bedside. I have independently interpreted the following test below: None. I have discussed the management of this patient with the following physician: Discussed with case management, plans for discharge to [facility], insurance auth is pending, likely tomorrow. Objective - Vital Signs Vital signs: Vital Signs Temp 98.3 F 03/03/23 04:00 Pulse 104 H 03/03/23 08:00 Resp 18 03/03/23 08:00 BP 147/69 03/03/23 08:00 Pulse Ox 92 L 03/03/23 09:16 FiO2 Intake & Output 03/02/23 03/03/23 03/03/23 18:59 06:59 18:59 Intake Total 406 870 250 Output Total 100 400 600 Balance 306 470 -350 Intake: IV 406 600 0.9 50 600 Dextrose 5%-0.9% NaCl 1, 300 000 ml @ 75 mls/hr IV . [id number] FAUSTO Rx#:[id number] Intake, IV Titration 150 Amount Clindamycin 900 mg In 150 Dextrose 5% in Water 50 ml @ 50 mls/hr IVPB Q6H FAUSTO Rx#:[id number] Oral 120 250 Output: Urine 100 400 600 Other: Voiding Method External Catheter External Catheter External Catheter # Voids 1 - Labs CBC & Chem 7: 03/02/23 03:34 03/03/23 10:02 Labs: Abnormal Lab Results - Last 24 Hours (Table) 03/02/23 03/02/23 03/03/23 Range/Units 16:50 19:48 10:02 BUN 48 H (7-17) mg/dL Creatinine 2.26 H (0.52-1.04) mg/dL Glucose 124 H (74-99) mg/dL POC Glucose (mg/dL) 149 H 163 H (70-110) mg/dL Calcium 8.3 L (8.4-10.2) mg/dL 03/03/23 Range/Units 11:31 BUN (7-17) mg/dL Creatinine (0.52-1.04) mg/dL Glucose (74-99) mg/dL POC Glucose (mg/dL) 112 H (70-110) mg/dL Calcium (8.4-10.2) mg/dL
[2023-03-03 17:06] LABS: Glucose,Whole Blood 119 mg/dL (70-110)
[2023-03-03] MEDS ORDERED: traMADol 50 MG TAB PO PRN (18:41)
--- NOTE | 2023-03-03 18:44 | P.PN ---
Subjective Patient is seen for follow-up for acute kidney injury associated with significant bradycardia. Patient is off of dopamine and transferred out of ICU. S/p pacmaker placement yesterday. She is also maintained on IV fluids. Serum creatinine at 2.26 from 2.6 yesterday. No previous labs available for comparison. Urine output documented at 1200 mL for 24 hours. No complaints today. Feels better. Objective - Vital Signs Vital signs: Vital Signs Temp 98.3 F 03/03/23 04:00 Pulse 79 03/03/23 16:00 Resp 18 03/03/23 14:00 BP 153/71 03/03/23 16:00 Pulse Ox 92 L 03/03/23 16:00 FiO2 Intake & Output 03/02/23 03/03/23 03/03/23 18:59 06:59 18:59 Intake Total 406 870 850 Output Total 829 661 0617 Balance 306 470 -350 Intake: IV 406 600 450 0.9 50 600 450 Dextrose 5%-0.9% NaCl 1, 300 000 ml @ 75 mls/hr IV . [id number] [facility]USTO Rx#:[id number] Intake, IV Titration 150 Amount Clindamycin 900 mg In 150 Dextrose 5% in Water 50 ml @ 50 mls/hr IVPB Q6H [facility] Rx#:[id number] Oral 120 400 Output: Urine 280 599 4401 Other: Voiding Method External Catheter External Catheter External Catheter # Voids 1 - Exam Awake, comfortable, no acute distress Examination of the heart S1 and S2 Examination lungs bilateral breath sounds are heard Abdomen is soft nontender Examination of lower extremities shows no significant edema TOOL DRAWING CHECKER exam grossly intact - Labs CBC & Chem 7: 03/02/23 03:34 03/03/23 10:02 Labs: Abnormal Lab Results - Last 24 Hours (Table) 03/02/23 03/03/23 03/03/23 Range/Units 19:48 10:02 11:31 BUN 48 H (7-17) mg/dL Creatinine 2.26 H (0.52-1.04) mg/dL Glucose 124 H (74-99) mg/dL POC Glucose (mg/dL) 163 H 112 H (70-110) mg/dL Calcium 8.3 L (8.4-10.2) mg/dL 03/03/23 Range/Units 17:05 BUN (7-17) mg/dL Creatinine (0.52-1.04) mg/dL Glucose (74-99) mg/dL POC Glucose (mg/dL) 119 H (70-110) mg/dL Calcium (8.4-10.2) mg/dL Assessment and Plan Assessment: 1. Acute kidney injury mostly associated with hypotension and bradycardia currently nonoliguric. Ultrasound shows small kidneys around 7.2 and 7.4 cm. No hydronephrosis noted. UA shows 2+ protein 2. Rule out chronic kidney disease. Previous labs not available for comparison. 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 3. Hypertension, blood pressure was on the lower side, therefore Cozaar was held. Potassium was also mildly elevated. Currently improved 4. Bradycardia with first-degree AV block currently off of beta blockers and s/p pacemaker placement. 5. Coronary artery disease status post coronary artery bypass surgery Plan: Encourage increased oral intake. D/c IVF in am This may be close to her baseline renal function.. Repeat labs in a.m.
[2023-03-03 20:03] LABS: Glucose,Whole Blood 144 mg/dL (70-110)
[2023-03-03] MEDS: DOXAZOSIN 2 MG TAB PO SCH (20:25)
[2023-03-03] MEDS: ATORVASTATIN 10 MG TAB PO SCH (20:25)
[2023-03-04 06:10] LABS: Glucose,Whole Blood 117 mg/dL (70-110)
[2023-03-04] MEDS: INSULIN ASPART (NovoLOG) 100 UNIT/ML VIAL SQ SCH ×2 (06:47→12:13)
[2023-03-04] MEDS: PANTOPRAZOLE 40 MG TABLET PO SCH (06:50)
[2023-03-04 08:58] VITALS: RESP 18; TEMP 98.1
[2023-03-04] MEDS: ASPIRIN 81 MG PO SCH (08:59)
[2023-03-04] MEDS: HEPARIN SODIUM,PORCINE/PF 5,000 UNIT/0.5 ML SYRINGE SQ SCH (08:59)
[2023-03-04] MEDS: METOPROLOL SUCCINATE (ER) 100 MG TAB.ER.24H PO SCH (08:59)
--- NOTE | 2023-03-04 09:20 | P.DS ---
Providers Date of admission: 02/28/23 19:54 Expected date of discharge: 03/04/23 Attending physician: Frida Herrera MD Consults: 02/28/23 20:24 Consult Physician Routine Consulting Provider: Rashmi Arita Consult Reason/Comments: bradycardia Do you want consulting provider notified?: Yes 03/01/23 08:21 Consult Physician Routine Consulting Provider: Natali Barton Consult Reason/Comments: elevated Cr Do you want consulting provider notified?: Yes Primary care physician: [facility] Course: Patient is a 82-year-old female with PMH of CAD status post CABG, hypertension, diabetes, hyperlipidemia presented to the ED for lightheadedness and syncopal episode. She was noted to be in complete heart block with heart rate in the 30s and 40s in the ED. She was given glucagon and started on dopamine drip and admitted to ICU for further management. 03/02 Patient was seen and examined. No acute events overnight. She is status post biventricular pacemaker. Heart rate in the 80s. Patient reports complete resolution of lightheadedness and nausea. Renal ultrasound shows renal atrophy. Echocardiogram shows EF of 65-70% with increased LV wall thickness, moderate to severe dilated left atrium, moderate MR, mild to moderate MS along with normally functioning bioprosthetic AV valve. 03/03 Patient was seen and examined. She reports no nausea or dizziness. Pacemaker has been interrogated and she is cleared by Cardiology. PT has recommended SNF and insurance authorization is pending. 03/04 Patient was seen and examined. Heart rate maintaining in the 70s and 80s. Creatinine improved from peak of 2.6-2.26, likely acute kidney injury from hypotension superimposed on chronic kidney disease given history of diabetes and hypertension. Her Cozaar will be restarted since her blood pressure is on the higher side 179/53 this morning. Her hip pain has been well controlled with tramadol as needed. Patient is accepted to [facility]. Plan is for discharge today. Pertinent studies include brain CT, chest x-ray, renal ultrasound, echocardiogram. Pertinent procedures include biventricular pacemaker placement. General: non toxic, no distress, appears at stated age Derm: warm, dry Head: atraumatic, normocephalic, symmetric Eyes: EOMI, no lid lag, anicteric sclera Cardiovascular: Normal S1 S2, no murmur Lungs: CTA bilateral, no rhonchi, no rales , no accessory muscle use Ext: no gross muscle atrophy, no edema, no contractures Neuro: no focal neuro deficits Psych: Alert, oriented, appropriate affect Discharge diagnosis: Symptomatic bradycardia Complete heart block Acute kidney injury Hyperkalemia Normocytic anemia Chronic conditions: CAD status post CABG, hypertension, diabetes, hyperlipidemia This complex discharge took 35 minutes to complete. Patient Condition at Discharge: Stable Plan - Discharge Summary Discharge Rx Participant: Yes New Discharge Prescriptions: New traMADol HCl [Ultram] 50 mg PO TID PRN #9 tab PRN Reason: Pain Continue Aspirin [Adult Low Dose Aspirin EC] 1 tab PO DAILY Metoprolol Succinate [Toprol XL] 200 mg PO DAILY Cyanocobalamin (Vitamin B-12) [Vitamin B-12] 1,000 mcg PO MOWEFR Losartan Potassium [Cozaar] 100 mg PO DAILY Turmeric Root Extract [Turmeric] 500 mg PO DAILY Simvastatin [Zocor] 20 tab PO HS amLODIPine [Norvasc] 5 tab PO BID sitaGLIPtin PHOS/metFORMIN HCL [Janumet 50-1,000 mg Tablet] 1 tab PO DAILY Ubidecarenone [Co Q-10] 300 mg PO DAILY Cholecalciferol [Vitamin D3 (25 Mcg = 1000 Iu)] 50 mcg PO DAILY Doxazosin [Cardura] 2 mg PO HS Discharge Medication List Aspirin [Adult Low Dose Aspirin EC] 1 tab PO DAILY 08/22/22 [History] Simvastatin [Zocor] 20 tab PO HS 08/22/22 [History] amLODIPine [Norvasc] 5 tab PO BID 08/22/22 [History] sitaGLIPtin PHOS/metFORMIN HCL [Janumet 50-1,000 mg Tablet] 1 tab PO DAILY 08/22/22 [History] Cholecalciferol [Vitamin D3 (25 Mcg = 1000 Iu)] 50 mcg PO DAILY 02/28/23 [History] Cyanocobalamin (Vitamin B-12) [Vitamin B-12] 1,000 mcg PO MOWEFR 02/28/23 [History] Doxazosin [Cardura] 2 mg PO HS 02/28/23 [History] Losartan Potassium [Cozaar] 100 mg PO DAILY 02/28/23 [History] Metoprolol Succinate [Toprol XL] 200 mg PO DAILY 02/28/23 [History] Turmeric Root Extract [Turmeric] 500 mg PO DAILY 02/28/23 [History] Ubidecarenone [Co Q-10] 300 mg PO DAILY 02/28/23 [History] traMADol HCl [Ultram] 50 mg PO TID PRN #9 tab 03/04/23 [Rx] Follow up Appointment(s)/Referral(s): Andriy Barnett MD [STAFF PHYSICIAN] - 1 Week Natali Barton MD [STAFF PHYSICIAN] - 1 Week Musa Feliciano MD [Primary Care Provider] - 1-2 days Activity/Diet/Wound Care/Special Instructions: Diet: Cardiac Follow up with your PCP within 1-2 days of discharge. Follow up with Cardiology and Nephrology within 1 week of discharge. Take all medications as advised. Come back to the ED for dizziness, chest pain, shortness of breath, palpitations. Discharge Disposition: TRANSFER TO SNF/ECF
[2023-03-04 11:32] VITALS: BP 172/72; PULSE 82
[2023-03-04 11:50] LABS: Glucose,Whole Blood 134 mg/dL (70-110)
== END 2023-03-04 12:24 | DRG 243 ==
LOC: EC 17:33 → 4SSUR 19:54 → 3SCARD 20:44 → 2SICU 21:35 → 3SCARD 03-02 17:19
PROVIDERS: ADMIT Internal Medicine; ATTEND Internal Medicine
PROC: 0JH606Z Insertion of Pacemaker, Dual Chamber into Chest Subcutaneous Tissue and Fascia, Open Approach (ICD-10-PCS; principal; 2023-02-28)
PROC: 02H63JZ Insertion of Pacemaker Lead into Right Atrium, Percutaneous Approach (ICD-10-PCS; 2023-02-28)
PROC: 02HK3JZ Insertion of Pacemaker Lead into Right Ventricle, Percutaneous Approach (ICD-10-PCS; 2023-02-28)
PROC: 3E0102A Introduction of Anti-Infective Envelope into Subcutaneous Tissue, Open Approach (ICD-10-PCS; 2023-02-28)
DX: I44.2 Atrioventricular block, complete (principal); N17.9 Acute kidney failure, unspecified; I49.5 Sick sinus syndrome; I12.9 Hypertensive chronic kidney disease with stage 1 through stage 4 chronic kidney disease, or unspecified chronic kidney disease; I25.10 Atherosclerotic heart disease of native coronary artery without angina pectoris; Z95.1 Presence of aortocoronary bypass graft; I05.2 Rheumatic mitral stenosis with insufficiency; D64.9 Anemia, unspecified; E11.22 Type 2 diabetes mellitus with diabetic chronic kidney disease; E78.5 Hyperlipidemia, unspecified; E87.5 Hyperkalemia; N18.30 Chronic kidney disease, stage 3 unspecified; N27.1 Small kidney, bilateral; Z79.82 Long term (current) use of aspirin; Z79.84 Long term (current) use of oral hypoglycemic drugs; Z79.899 Other long term (current) drug therapy; Z90.710 Acquired absence of both cervix and uterus; Z95.3 Presence of xenogenic heart valve; Z88.6 Allergy status to analgesic agent; Z88.1 Allergy status to other antibiotic agents; Z88.5 Allergy status to narcotic agent
CPT/HCPCS: 33208; 36415; 70450; 71045; 71046; 76770; 80048; 80053; 81001; 83735; 84100; 84443; 84484; 85025; 93005; 93306; 94760; 96361; 96365; 96366; 96372; 96375; 99285

== ENCOUNTER 2023-09-06 22:24 | Inpatient (IN) | payer MEDICARE ==
[2023-09-06 23:09] LABS: Basophils % (A) 0 %; Eosinophils # (A) 0.4 k/uL (0-0.7); Eosinophils % (A) 7 %; HCT 30.8 % (34.0-46.0); HGB 9.7 gm/dL (11.4-16.0); Hypochromasia Moderate; Lymphocytes # (A) 1.6 k/uL (1.0-4.8); Lymphocytes % (A) 26 %; MCH 30.8 pg (25.0-35.0); MCHC 31.6 g/dL (31.0-37.0); MCV 97.8 fL (80.0-100.0); Mean Platelet Volume 10.2; Monocytes # (A) 0.4 k/uL (0-1.0); Monocytes % (A) 6 %; Neutrophils # (A) 3.8 k/uL (1.3-7.7); Neutrophils % (A) 60 %; Platelet Count 215 k/uL (150-450); RBC 3.15 m/uL (3.80-5.40); WBC 6.3 k/uL (3.8-10.6)
[2023-09-06 23:14] LABS: INR 0.9 (<1.2); Partial Thromboplastin Time 24.9 sec (22.0-30.0); Prothrombin Time 10.5 sec (10.0-12.5)
--- NOTE | 2023-09-06 23:18 | ED ---
SOB HPI - General Chief Complaint: Shortness of Breath Stated Complaint: SOB Time Seen by Provider: 09/06/23 22:30 Source: patient, EMS Mode of arrival: EMS Limitations: no limitations - History of Present Illness Initial Comments: 83-year-old female with past medical history of diabetes, hypertension, pacemaker placement for heart block who presents to the emergency department reporting shortness of breath. She states that ever since she had her pacemaker put in in February that she has had issues with lower extremity swelling. Patient has significant swelling of her bilateral lower extremities and left arm. She does not take a diuretic. She was told by her joinery patternmaker that she is not able to take one due to her kidney failure. Patient was in the emergency department at the end of June for her swelling. States that she had ultrasounds performed of her extremities which demonstrated no DVT. She does not have any shortness of breath at that time. Patient states over the past couple days she has had shortness of breath, especially upon laying. She does not have any oxygen at home. Denies fevers, chills or cough. She denies any chest pain. No history of COPD or asthma. Does not use nebulizers at home. EMS found the patient have normal oxygen saturations. She does have a history of bypass and aortic valve repair. She does not take any anticoagulation. No other alleviating, precipitating or modifying factors - Related Data Home Medications Medication Instructions Recorded Confirmed Aspirin [Adult Low Dose Aspirin EC] 81 mg PO DAILY 08/22/22 09/06/23 Simvastatin [Zocor] 20 mg PO HS 08/22/22 09/06/23 amLODIPine [Norvasc] 5 mg PO BID 08/22/22 09/06/23 sitaGLIPtin PHOS/metFORMIN HCL 1 tab PO DAILY 08/22/22 09/06/23 [Janumet 50-1,000 mg Tablet] Cholecalciferol [Vitamin D3 (25 25 mcg PO DAILY 02/28/23 09/06/23 Mcg = 1000 Iu)] Cyanocobalamin (Vitamin B-12) 1,000 mcg PO Q2D 02/28/23 09/06/23 [Vitamin B-12] Doxazosin [Cardura] 1 mg PO BID 02/28/23 09/06/23 Losartan Potassium [Cozaar] 50 mg PO DAILY 02/28/23 09/06/23 Metoprolol Succinate [Toprol XL] 200 mg PO DAILY 02/28/23 09/06/23 Turmeric Root Extract [Turmeric] 500 mg PO DAILY 02/28/23 09/06/23 Amoxic-Pot Clav 875-125Mg 1 tab PO BID 09/06/23 09/06/23 [Augmentin 875-125] Ubidecarenone [Co Q-10] 30 mg PO HS 09/06/23 09/06/23 Allergies Allergy/AdvReac Type Severity Reaction Status Date / Time cephalexin Allergy Unknown Verified 09/06/23 22:57 ciprofloxacin [From Cipro] Allergy Unknown Verified 09/06/23 22:57 codeine Allergy Unknown Verified 09/06/23 22:57 Review of Systems ROS Statement: Those systems with pertinent positive or pertinent negative responses have been documented in the HPI. ROS Other: All systems not noted in ROS Statement are negative. Past Medical History Past Medical History: Diabetes Mellitus, Hyperlipidemia, Hypertension History of Any Multi-Drug Resistant Organisms: None Reported Past Surgical History: Appendectomy, Cholecystectomy, Coronary Bypass/CABG, Hysterectomy, Tonsillectomy Past Anesthesia/Blood Transfusion Reactions: No Reported Reaction Past Psychological History: No Psychological Hx Reported Smoking Status: Never smoker Past Alcohol Use History: None Reported Past Drug Use History: None Reported General Exam Limitations: no limitations General appearance: alert, in no apparent distress Head exam: Present: atraumatic, normocephalic, normal inspection Eye exam: Present: normal appearance, PERRL, EOMI. Absent: scleral icterus, conjunctival injection, periorbital swelling ENT exam: Present: normal exam, mucous membranes moist Neck exam: Present: normal inspection. Absent: tenderness, meningismus, lymphadenopathy Respiratory exam: Present: decreased breath sounds (At the bases, left worse than right). Absent: respiratory distress, wheezes, rales, rhonchi, stridor Cardiovascular Exam: Present: regular rate, normal rhythm, normal heart sounds. Absent: systolic murmur, diastolic murmur, rubs, gallop, clicks GI/Abdominal exam: Present: soft, normal bowel sounds. Absent: distended, tenderness, guarding, rebound, rigid Extremities exam: Present: normal inspection, full ROM, normal capillary refill. Absent: tenderness, pedal edema, joint swelling, calf tenderness Back exam: Present: normal inspection Neurological exam: Present: alert, oriented X3, CN II-XII intact Psychiatric exam: Present: normal affect, normal mood Skin exam: Present: warm, dry, intact, normal color. Absent: rash Course Vital Signs 09/06/23 09/06/23 09/07/23 22:25 23:09 00:00 Pulse Rate 71 59 L Respiratory 20 18 Rate Blood Pressure 122/74 101/69 O2 Sat by Pulse 98 98 98 Oximetry Medical Decision Making - Medical Decision Making Was pt. sent in by a medical professional or institution (, PA, ROUTEMAN, urgent care, hospital, or prison...) When possible be specific @ -No Did you speak to anyone other than the patient for history (EMS, parent, family, police, friend...)? What history was obtained from this source @ -Spoke with EMS for history Did you review nursing and triage notes (agree or disagree)? Why? @ -I reviewed and agree with nursing and triage notes Were old charts reviewed (outside hosp., previous admission, EMS record, old EKG, old radiological studies, urgent care reports/EKG's, prison records)? Report findings @ -I reviewed the patient's ultrasound results from June Differential Diagnosis (chest pain, altered mental status, abdominal pain women, abdominal pain men, vaginal bleeding, weakness, fever, dyspnea, syncope, headache, dizziness, GI bleed, back pain, seizure, CVA, palpatations, mental health, musculoskeletal)? @ -Differential Dyspnea: Coronary syndrome, arrhythmia, tamponade, asthma, COPD, pulmonary embolism, pneumonia, pneumothorax, pulmonary effusion, anaphylaxis, diabetic ketoacidosis, flailed chest, pulmonary contusion, diaphragmatic rupture, anemia, neuromuscular, this is not meant to be an all-inclusive list. EKG interpreted by me (3pts min.). @ -Yes and demonstrates electronic atrial pacemaker. Rate of 68. DE interval 169. QRS 186. QTC 493. Pacemaker captures appropriately X-rays interpreted by me (1pt min.). @ -Yes and demonstrates bilateral pleural effusions with the left being worse than the right CT interpreted by me (1pt min.). @ -None done U/S interpreted by me (1pt. min.). @ -None done What testing was considered but not performed or refused? (CT, X-rays, U/S, labs)? Why? @ -None What meds were considered but not given or refused? Why? @ -Lasix was considered however the patient was told by her joinery patternmaker that she should not have Lasix Did you discuss the management of the patient with other professionals (professionals i.e. , PA, ROUTEMAN, lab, RT, psych nurse, social work associate, patternmaker, teacher, police liaison officer, nurse case manager)? Give summary @ -Spoke with Dr. Garcia who agreed to admission Was smoking cessation discussed for >3mins.? @ -No Was critical care preformed (if so, how long)? @ -No Were there social determinants of health that impacted care today? How? (Homelessness, low income, unemployed, alcoholism, drug addiction, transportation, low edu. Level, literacy, decrease access to med. care, shelter, rehab)? @ -No Was there de-escalation of care discussed even if they declined (Discuss DNR or withdrawal of care, Hospice)? DNR status @ -No What co-morbidities impacted this encounter? (DM, HTN, Smoking, COPD, CAD, Cancer, CVA, ARF, Chemo, Hep., AIDS, mental health diagnosis, sleep apnea, morbid obesity)? @ -Hypertension, heart block with pacemaker placement Was patient admitted / discharged? Hospital course, mention meds given and route, prescriptions, significant lab abnormalities, going to OR and other pertinent info. @ -Upon arrival the patient was placed into room 7. Thorough history and physical exam was performed. IV is established. Laboratory studies were conducted. Chest x-ray is performed which demonstrates bilateral pleural effusions. Patient does have elevated BNP. She will require diuresis and possible thoracentesis for pleural effusion. I recommended admission for which the patient was agreeable to. Spoke with Dr. Garcia who agreed to admit the patient. I did order Lasix. I will consult pulmonology for possible thoracentesis Undiagnosed new problem with uncertain prognosis? @ -No Drug Therapy requiring intensive monitoring for toxicity (Heparin, Nitro, Insulin, Cardizem)? @ -No Were any procedures done? @ -No Diagnosis/symptom? @ -Acute respiratory insufficiency, acute bilateral pleural effusions Acute, or Chronic, or Acute on Chronic? @ -Acute Uncomplicated (without systemic symptoms) or Complicated (systemic symptoms)? @ -Complicated Side effects of treatment? @ -No Exacerbation, Progression, or Severe Exacerbation? @ -No Poses a threat to life or bodily function? How? (Chest pain, [place], [place], pneumonia, PE, COPD, DKA, ARF, appy, cholecystitis, CVA, Diverticulitis, Homicidal, Suicidal, threat to staff... and all critical care pts) @ -No - Lab Data Result diagrams: 09/06/23 22:33 09/06/23 22:33 Lab Results 09/06/23 09/06/23 09/06/23 Range/Units 22:33 22:33 22:33 WBC 6.3 (3.8-10.6) k/uL RBC 3.15 L (3.80-5.40) m/uL Hgb 9.7 L (11.4-16.0) gm/dL Hct 30.8 L (34.0-46.0) % MCV 97.8 (80.0-100.0) fL MCH 30.8 (25.0-35.0) pg MCHC 31.6 (31.0-37.0) g/dL RDW 14.0 (11.5-15.5) % Plt Count 215 (150-450) k/uL MPV 10.2 Neutrophils % 60 % Lymphocytes % 26 % Monocytes % 6 % Eosinophils % 7 % Basophils % 0 % Neutrophils # 3.8 (1.3-7.7) k/uL Lymphocytes # 1.6 (1.0-4.8) k/uL Monocytes # 0.4 (0-1.0) k/uL Eosinophils # 0.4 (0-0.7) k/uL Basophils # 0.0 (0-0.2) k/uL Hypochromasia Moderate PT 10.5 (10.0-12.5) sec INR 0.9 (<1.2) APTT 24.9 (22.0-30.0) sec Sodium 138 (137-145) mmol/L Potassium 5.0 (3.5-5.1) mmol/L Chloride 104 (98-107) mmol/L Carbon Dioxide 23 (22-30) mmol/L Anion Gap 11 mmol/L BUN 63 H (7-17) mg/dL Creatinine 2.54 H (0.52-1.04) mg/dL Est GFR (CKD-EPI)AfAm 19 (>60 ml/min/1.73 sqM) Est GFR (CKD-EPI)NonAf 17 (>60 ml/min/1.73 sqM) Glucose 164 H (74-99) mg/dL Plasma Lactic Acid [place] (0.7-2.0) mmol/L Calcium 8.5 (8.4-10.2) mg/dL Total Bilirubin 0.3 (0.2-1.3) mg/dL AST 30 (14-36) U/L ALT 22 (4-34) U/L Alkaline Phosphatase 136 H (38-126) U/L Troponin I (0.000-0.034) ng/mL NT-Pro-B Natriuret Pep 8200 pg/mL Total Protein 5.9 L (6.3-8.2) g/dL Albumin 2.9 L (3.5-5.0) g/dL 09/06/23 09/06/23 Range/Units 22:33 22:33 WBC (3.8-10.6) k/uL RBC (3.80-5.40) m/uL Hgb (11.4-16.0) gm/dL Hct (34.0-46.0) % MCV (80.0-100.0) fL MCH (25.0-35.0) pg MCHC (31.0-37.0) g/dL RDW (11.5-15.5) % Plt Count (150-450) k/uL MPV Neutrophils % % Lymphocytes % % Monocytes % % Eosinophils % % Basophils % % Neutrophils # (1.3-7.7) k/uL Lymphocytes # (1.0-4.8) k/uL Monocytes # (0-1.0) k/uL Eosinophils # (0-0.7) k/uL Basophils # (0-0.2) k/uL Hypochromasia PT (10.0-12.5) sec INR (<1.2) APTT (22.0-30.0) sec Sodium (137-145) mmol/L Potassium (3.5-5.1) mmol/L Chloride (98-107) mmol/L Carbon Dioxide (22-30) mmol/L Anion Gap mmol/L BUN (7-17) mg/dL Creatinine (0.52-1.04) mg/dL Est GFR (CKD-EPI)AfAm (>60 ml/min/1.73 sqM) Est GFR (CKD-EPI)NonAf (>60 ml/min/1.73 sqM) Glucose (74-99) mg/dL Plasma Lactic Acid [place] 0.8 (0.7-2.0) mmol/L Calcium (8.4-10.2) mg/dL Total Bilirubin (0.2-1.3) mg/dL AST (14-36) U/L ALT (4-34) U/L Alkaline Phosphatase (38-126) U/L Troponin I <0.012 (0.000-0.034) ng/mL NT-Pro-B Natriuret Pep pg/mL Total Protein (6.3-8.2) g/dL Albumin (3.5-5.0) g/dL Disposition Clinical Impression: Renal insufficiency, Pulmonary edema, Pleural effusion, Acute respiratory insufficiency Disposition: ADMITTED IP TO THIS [facility] Condition: Stable Is patient prescribed a controlled substance at d/c from ED?: No Time of Disposition: 00:23 Decision to Admit Reason: Admit from EC Decision Date: 09/07/23 Decision Time: 00:23
[2023-09-06 23:19] LABS: ALT 22 U/L (4-34); AST 30 U/L (14-36); African American GFR (CKD) 19 (>60 ml/min/1.73 sqM); Albumin 2.9 g/dL (3.5-5.0); Alkaline Phosphatase 136 U/L (38-126); Anion Gap 11 mmol/L; Blood Urea Nitrogen 63 mg/dL (7-17); Calcium 8.5 mg/dL (8.4-10.2); Carbon Dioxide 23 mmol/L (22-30); Chloride 104 mmol/L (98-107); Glucose 164 mg/dL (74-99); Non-African American GFR(CKD) 17 (>60 ml/min/1.73 sqM); Sodium 138 mmol/L (137-145); Total Bilirubin 0.3 mg/dL (0.2-1.3); Total Protein 5.9 g/dL (6.3-8.2)
[2023-09-06 23:26] LABS: NT-Pro-B-Type Natriuretic Pept 8200 pg/mL
--- NOTE | 2023-09-06 23:50 | XR ---
EXAM: XR Chest, 2 Views CLINICAL HISTORY: ITS.REASON XR Reason: difficulty breathing TECHNIQUE: Frontal and lateral views of the chest. COMPARISON: No relevant prior studies available. FINDINGS: Lungs: Unremarkable. No consolidation. Pleural space: Moderate LEFT pleural effusion. Trace RIGHT pleural effusion. No pneumothorax. Heart: Cardiomegaly. Mediastinum: Unremarkable. Normal mediastinal contour. Bones/joints: Sternotomy wires. No acute fracture. Tubes, lines and devices: Pacemaker leads. Upper abdomen: Cholecystectomy clips. IMPRESSION: 1. Moderate LEFT pleural effusion. 2. Trace RIGHT pleural effusion.
[2023-09-07] MEDS ORDERED: FUROSEMIDE 10 MG/ML 4 ML VIAL IV STA (00:22)
[2023-09-07] MEDS ORDERED: NALOXONE 0.4 MG/ML 1 ML VIAL IV PRN (00:23)
[2023-09-07] MEDS ORDERED: DEXTROSE 50% SYRINGE 50 ML IVP PRN ×2 (05:01)
--- NOTE | 2023-09-07 05:12 | P.HPIM ---
History of Present Illness H&P Date: 09/07/23 Chief Complaint: shortness of breath 83 year old female with complete heart block s/p pacemaker, DM , hypertension patient coming in for evaluation of new onset SOB of 1 week duration. she is bedridden , and has a personal care home administrator who would transport her from bed to wheelchair , where she spends most of her day. she does not walk at all. she reports orthopnea and PNDs, now she is sleeping on multiple pillows. however, SOB improves with sitting up. denies any chest pain , fever, chills cough, abd pain , changes in urinary or bowel hab its, denies any smoking. denies any recent known sick contacts. denies any history of CHF, her LVEF most recent echo was 65-70%. February of 2023 when she required the pacemaker she refuses to use any lasix , as her generating plant superintendent told her to strictly avoid lasix . she would like to speak with her generating plant superintendent before taking any. denies tobacco smoking , illicit drugs or alcohol refuses going to SNF even if needed review of systems Pertinent positives as noted in HPI. All other systems were reviewed and are negative on exam Constitutional: No acute distress, conversant Eyes: Anicteric sclerae, moist conjunctiva, Pupils equal round reactive to light ENMT: NC/AT Oropharynx clear, no erythema, or exudates Neck: Supple, no masses, or JVD No carotid bruits No thyromegaly Lungs: dminished breath sounds left mid lung and below Normal respiratory effort, no accessory muscle use Cardiovascular: Heart regular in rate and rhythm, No murmurs, gallops, or rubs +3 bilateral peripheral edema Abdominal: Soft Nontender, no guarding, rebound or rigidity Abdomen moving with respiration Normoactive bowel sounds No hepatomegaly, No splenomegaly No palpable mass No abdominal wall hernia noted Extremities: No digital cyanosis No clubbing Pedal pulses difficult to assess due to significant pedal edema , capillary refill immediate Radial pulses intact and symmetrical No calf tenderness Psychiatric: Alert and oriented to person, place and time Neuro Muscles Strength 4/5 in bilateral upper extremities , 2/5 bilateral lower extremities Sensation to light touch grossly present throughout Cranial nerves II-XII grossly intact Lymphatics: no palpable cervical or supraclavicular lymph nodes Past Medical History Past Medical History: Diabetes Mellitus, Hyperlipidemia, Hypertension History of Any Multi-Drug Resistant Organisms: None Reported Past Surgical History: Appendectomy, Cholecystectomy, Coronary Bypass/CABG, Hysterectomy, Tonsillectomy Past Anesthesia/Blood Transfusion Reactions: No Reported Reaction Past Psychological History: No Psychological Hx Reported Smoking Status: Never smoker Past Alcohol Use History: None Reported Past Drug Use History: None Reported Medications and Allergies Home Medications Medication Instructions Recorded Confirmed Type Aspirin [Adult Low Dose Aspirin EC] 81 mg PO DAILY 08/22/22 09/06/23 History Simvastatin [Zocor] 20 mg PO HS 08/22/22 09/06/23 History amLODIPine [Norvasc] 5 mg PO BID 08/22/22 09/06/23 History sitaGLIPtin PHOS/metFORMIN HCL 1 tab PO DAILY 08/22/22 09/06/23 History [Janumet 50-1,000 mg Tablet] Cholecalciferol [Vitamin D3 (25 25 mcg PO DAILY 02/28/23 09/06/23 History Mcg = 1000 Iu)] Cyanocobalamin (Vitamin B-12) 1,000 mcg PO Q2D 02/28/23 09/06/23 History [Vitamin B-12] Doxazosin [Cardura] 1 mg PO BID 02/28/23 09/06/23 History Losartan Potassium [Cozaar] 50 mg PO DAILY 02/28/23 09/06/23 History Metoprolol Succinate [Toprol XL] 200 mg PO DAILY 02/28/23 09/06/23 History Turmeric Root Extract [Turmeric] 500 mg PO DAILY 02/28/23 09/06/23 History Amoxic-Pot Clav 875-125Mg 1 tab PO BID 09/06/23 09/06/23 History [Augmentin 875-125] Ubidecarenone [Co Q-10] 30 mg PO HS 09/06/23 09/06/23 History Allergies Allergy/AdvReac Type Severity Reaction Status Date / Time cephalexin Allergy Unknown Verified 09/06/23 22:57 ciprofloxacin [From Cipro] Allergy Unknown Verified 09/06/23 22:57 codeine Allergy Unknown Verified 09/06/23 22:57 Physical Exam Vitals: Vital Signs Pulse Resp BP Pulse Ox 09/07/23 02:00 61 20 100/68 100 09/07/23 00:00 59 L 18 101/69 98 09/06/23 23:09 98 09/06/23 22:25 71 20 122/74 98 Intake and Output 09/06/23 09/06/23 09/07/23 14:59 22:59 06:59 Other: Weight 61.235 kg Results CBC & Chem 7: 09/06/23 22:33 09/06/23 22:33 Labs: Abnormal Lab Results - Last 24 Hours (Table) 09/06/23 09/06/23 Range/Units 22:33 22:33 RBC 3.15 L (3.80-5.40) m/uL Hgb 9.7 L (11.4-16.0) gm/dL Hct 30.8 L (34.0-46.0) % BUN 63 H (7-17) mg/dL Creatinine 2.54 H (0.52-1.04) mg/dL Glucose 164 H (74-99) mg/dL Alkaline Phosphatase 136 H (38-126) U/L Total Protein 5.9 L (6.3-8.2) g/dL Albumin 2.9 L (3.5-5.0) g/dL Assessment and Plan Assessment: 83 year old female with CKD, CABG, heart block s/p pacemaker , coming for SOB , orthopnea , I discussed the case with ED doc and I accepted the admission for moderate left pleural effusion and fluid overload. with anticipated length of stay > 2 midngihts fluid overload left pleural effusion patient refusing Lasix IVP 40 mg BID monitor renal function monitor urine output monitor vital signs daily weight fluid restriction to 1800 cc per day elevated pro BNP 8299 trops negative CKD stable Na 138, K 5 BN 63 Cr 2.5 monitor urine output avoid nephrotoxic meds CAD s/p CABG resume aspirin , statin ' chronic anemia of chronic disease denies any bleeding Hgb 9.7 monitor Hgb hypertension resume losartan and metoprolol resume cardura resume amlodipine DM insulin sliding scale hold oral hypoglycemic agents full code DVT PPX heparin sc tid
[2023-09-07 07:24] LABS: Glucose,Whole Blood 94 mg/dL (70-110)
[2023-09-07] MEDS ORDERED: metFORMIN 500 MG TAB PO SCH (07:30)
[2023-09-07] MEDS: INSULIN ASPART (NovoLOG) 100 UNIT/ML VIAL SQ SCH ×4 (07:33→20:59)
[2023-09-07] MEDS: HEPARIN SODIUM,PORCINE 5,000 UNIT/ML 1 ML VIAL SQ SCH ×3 (08:17→23:21)
[2023-09-07] MEDS: FUROSEMIDE 10 MG/ML 4 ML VIAL IV SCH ×2 (08:18→20:47)
[2023-09-07] MEDS: ASPIRIN 81 MG PO SCH (08:36)
[2023-09-07] MEDS: DOXAZOSIN 1 MG TAB PO SCH ×2 (08:36→20:47)
[2023-09-07] MEDS: LOSARTAN 50 MG TAB PO SCH (08:36)
[2023-09-07] MEDS: amLODIPine 5 MG TAB PO SCH ×2 (08:36→20:36)
[2023-09-07] MEDS: METOPROLOL SUCCINATE (ER) 100 MG TAB.ER.24H PO SCH (08:36)
[2023-09-07] MEDS ORDERED: LINAGLIPTIN 5 MG TABLET PO SCH (09:00)
[2023-09-07 11:55] LABS: Glucose,Whole Blood 111 mg/dL (70-110)
--- NOTE | 2023-09-07 12:08 | P.NPCON ---
History of Present Illness - Reason for Consult chronic renal failure - History of Present Illness Reason for consultation: Chronic kidney disease History of present illness: Patient is a 83-year-old female seen in consultation for chronic kidney disease. Patient has chronic kidney disease stage IV with baseline creatinine 2.3-2.5. Creatinine on admission was 2.54. Patient came to the hospital due to worsening shortness of breath going on for about one week. Patient also admits to edema in her lower extremities. She denies chest pain. No vomiting or diarrhea. Denies use of nonsteroidals. Patient has long-standing history of diabetes. Patient also has history of coronary disease and is status post CABG about 10 years ago. Chest x-ray showed bilateral pleural effusions. Patient has been started on IV Lasix. Blood pressure controlled. No fever or chills. No vomiting or diarrhea. Vital signs are stable. General: No acute distress. HEENT: Head exam is unremarkable. On nasal cannula. LUNGS: No audible rhonchi or wheezes. HEART: Rate and Rhythm are regular. ABDOMEN: Nontender. EXTREMITITES: 2+ edema. Past Medical History Past Medical History: Coronary Artery Disease (CAD), Heart Failure, Diabetes Mellitus, Hyperlipidemia, Hypertension, Renal Disease (CKD stage 4) Additional Past Medical History / Comment(s): pacemaker for complete heart block, AVR History of Any Multi-Drug Resistant Organisms: None Reported Past Surgical History: Appendectomy, Cholecystectomy, Coronary Bypass/CABG, Hysterectomy, Pacemaker, Tonsillectomy Past Anesthesia/Blood Transfusion Reactions: No Reported Reaction Past Psychological History: No Psychological Hx Reported Smoking Status: Never smoker Past Alcohol Use History: None Reported Past Drug Use History: None Reported - Past Family History Father History Unknown: Yes Medications and Allergies Home Medications Medication Instructions Recorded Confirmed Type Aspirin [Adult Low Dose Aspirin EC] 81 mg PO DAILY 08/22/22 09/06/23 History Simvastatin [Zocor] 20 mg PO HS 08/22/22 09/06/23 History amLODIPine [Norvasc] 5 mg PO BID 08/22/22 09/06/23 History sitaGLIPtin PHOS/metFORMIN HCL 1 tab PO DAILY 08/22/22 09/06/23 History [Janumet 50-1,000 mg Tablet] Cholecalciferol [Vitamin D3 (25 25 mcg PO DAILY 02/28/23 09/06/23 History Mcg = 1000 Iu)] Cyanocobalamin (Vitamin B-12) 1,000 mcg PO Q2D 02/28/23 09/06/23 History [Vitamin B-12] Doxazosin [Cardura] 1 mg PO BID 02/28/23 09/06/23 History Losartan Potassium [Cozaar] 50 mg PO DAILY 02/28/23 09/06/23 History Metoprolol Succinate [Toprol XL] 200 mg PO DAILY 02/28/23 09/06/23 History Turmeric Root Extract [Turmeric] 500 mg PO DAILY 02/28/23 09/06/23 History Amoxic-Pot Clav 875-125Mg 1 tab PO BID 09/06/23 09/06/23 History [Augmentin 875-125] Ubidecarenone [Co Q-10] 30 mg PO HS 09/06/23 09/06/23 History Allergies Allergy/AdvReac Type Severity Reaction Status Date / Time cephalexin Allergy Unknown Verified 09/06/23 22:57 ciprofloxacin [From Cipro] Allergy Unknown Verified 09/06/23 22:57 codeine Allergy Unknown Verified 09/06/23 22:57 Physical Exam Vitals: Vital Signs Temp Pulse Pulse Resp BP BP Pulse Ox 09/07/23 09:56 64 18 114/59 93 L 09/07/23 08:30 99 09/07/23 08:19 61 18 99/57 96 09/07/23 08:00 64 18 09/07/23 06:05 97.8 F 60 20 100/58 99 09/07/23 05:35 67 14 88/55 100 09/07/23 05:30 66 14 88/55 100 09/07/23 05:25 67 15 88/55 98 09/07/23 05:20 60 12 88/55 100 09/07/23 05:15 75 12 88/55 100 09/07/23 05:10 81 12 88/55 100 09/07/23 05:05 79 13 88/55 100 09/07/23 05:00 62 19 100/51 100 09/07/23 04:55 60 12 100/51 100 09/07/23 04:50 67 11 L 100/51 100 09/07/23 04:45 63 13 100/51 100 09/07/23 04:40 60 12 100/51 100 09/07/23 04:35 71 12 100/51 100 09/07/23 04:30 74 11 L 100/51 100 09/07/23 04:25 66 11 L 100/51 100 09/07/23 04:20 64 13 100/51 100 09/07/23 04:15 64 12 100/51 100 09/07/23 04:10 68 15 100/51 100 09/07/23 04:05 71 14 100/51 100 09/07/23 04:00 70 12 88/54 100 09/07/23 03:55 61 13 88/54 100 09/07/23 03:50 75 13 88/54 100 09/07/23 03:45 61 14 88/54 100 09/07/23 03:40 64 13 88/54 100 09/07/23 03:35 62 13 88/54 100 09/07/23 03:30 66 13 88/54 100 09/07/23 03:25 76 11 L 88/54 100 09/07/23 02:00 61 20 100/68 100 09/07/23 00:00 59 L 18 101/69 98 09/06/23 23:09 98 09/06/23 22:25 71 20 122/74 98 Intake and Output 09/06/23 09/07/23 09/07/23 22:59 06:59 14:59 Other: Voiding Method Diaper Incontinent Weight 61.235 kg 61.235 kg Results - Lab Results Most recent lab results Calcium 8.5 mg/dL (8.4-10.2) 09/06/23 22:33 09/06/23 22:33 09/06/23 22:33 Assessment and Plan Plan: Assessment: 1. Chronic kidney disease stage IV secondary to diabetic kidney disease. Baseline creatinine 2.3-2.5. 2. Acute hypoxic respiratory failure. 3. Volume overload. 4. Cardiomyopathy. Unknown ejection fraction. 5. Anemia of chronic kidney disease. Rule out iron deficiency. 6. Hypertension with chronic kidney disease. Blood pressure on the lower side. 7. Diabetes mellitus. Plan: Agree with IV Lasix. Hold amlodipine for systolic blood pressure less than 110. Check UA. Check renal ultrasound. Low-salt diet. Avoid nephrotoxins. Continue to monitor renal function and urine output. Follow-up echocardiogram. Thank you for the consultation. I will continue to follow the patient with you during her hospital stay.
--- NOTE | 2023-09-07 12:52 | CA ---
Transthoracic Echo Report Name: Felicitas Nielsen Age: 83 Gender: F : 1940 Exam Date: 09/07/2023 07:55 Exam Location: [facility] Ht (in): 67 Wt (lb): 135 Ordering Physician: Tata Carey DO Attending/Referring Phys: [id number], [employer] Elham Perez, YANIRA Procedure CPT: Indications: pleural effusions, valve replacement hx Cardiac Hx: pacemaker, DM, HTN Technical Quality: Fair Contrast 1: Total Dose (mL): Contrast 2: Total Dose (mL): MEASUREMENTS (Male / Female) Normal Values 2D ECHO LV Diastolic Diameter PLAX 3.6 cm 4.2 - 5.9 / 3.9 - 5.3 cm LV Systolic Diameter PLAX 2.6 cm IVS Diastolic Thickness 1.4 cm 0.6 - 1.0 / 0.6 - 0.9 cm LVPW Diastolic Thickness 1.3 cm 0.6 - 1.0 / 0.6 - 0.9 cm LV Relative Wall Thickness 0.7 RV Internal Dim ED PLAX 3.7 cm LVOT Diameter 1.8 cm LA Systolic Diameter LX 5.5 cm 3.0 - 4.0 / 2.7 - 3.8 cm LV Diastolic Volume MOD 4C 56.3 cm??? LV Systolic Volume MOD 4C 29.4 cm??? LV Ejection Fraction MOD 4C 47.7 % LV Cardiac Index MOD 4C 1248.4 cm???/min???m??? LV Diastolic Length 4C 6.9 cm LV Systolic Length 4C 6.2 cm LV Diastolic Volume MOD 2C 64.0 cm??? LV Systolic Volume MOD 2C 27.4 cm??? LV Ejection Fraction MOD 2C 57.2 % LV Cardiac Index MOD 2C 1700.3 cm???/min???m??? LV Diastolic Length 2C 7.7 cm LV Systolic Length 2C 6.8 cm LA Volume 91.4 cm??? 18 - 58 / 22 - 52 cm??? LA Volume Index 53.8 cm???/m??? 16 - 28 cm???/m??? M-MODE Aortic Root Diameter MM 2.6 cm DOPPLER AV Peak Velocity 170.3 cm/s AV Peak Gradient 11.6 mmHg AV Mean Velocity 115.0 cm/s AV Mean Gradient 6.2 mmHg AV Velocity Time Integral 46.7 cm LVOT Peak Velocity 90.3 cm/s LVOT Peak Gradient 3.3 mmHg AV Area Cont Eq pk 1.3 cm??? MV Peak Velocity 174.9 cm/s MV Peak Gradient 12.2 mmHg MV Mean Velocity 85.3 cm/s MV Mean Gradient 3.7 mmHg MV Velocity Time Integral 52.7 cm MV Area PHT 2.2 cm??? Mitral E Point Velocity 178.5 cm/s Mitral A Point Velocity 94.3 cm/s Mitral E to A Ratio 1.9 MV Deceleration Time 344.1 ms TR Peak Velocity 266.6 cm/s TR Peak Gradient 28.4 mmHg Right Ventricular Systolic Press 43.0 mmHg FINDINGS Left Ventricle Limited views technically difficult study Left ventricular ejection fraction is estimated at 50-55 %. Small left ventricular cavity. Moderate concentric left ventricular hypertrophy. Atypical septal motion. Moderate concentric LVH Right Ventricle Mild right ventricular dilatation. Mild pulmonary hypertension. Right Atrium Normal right atrial size. Left Atrium Severely increased left atrial diameter. Severely increased left atrial volume. Mildly increased left atrial area. Mitral Valve Moderate mitral annular calcification. Mild mitral stenosis with mean gradient of 4 mmHg. Calcified mitral stenosis with mitral and the calcification thickening of mitral valve leaflets. Moderate mitral regurgitation Aortic Valve Aortic valve sclerosis. Mild aortic stenosis with a peak gradient of 12 mmHg and a mean gradient of 6 mmHg. Tricuspid Valve Structurally normal tricuspid valve. Mild tricuspid regurgitation. Pulmonic Valve Structurally normal pulmonic valve. No pulmonic regurgitation. Pericardium No pericardial effusion. Aorta Normal size aortic root and proximal ascending aorta. CONCLUSIONS Fair systolic function atypical septal motion moderate concentric LVH mild to moderate pulmonary hypertension calcific mitral stenosis with restriction of thickened mitral valve leaflets aortic valve sclerosis mild stenosis mild mitral and moderate mitral regurgitation. No pericardial effusion Previewed by: Dr. Sheila Alexis MD (Electronically Signed) Final Date: 07 September 2023 12:51
--- NOTE | 2023-09-07 14:38 | US ---
EXAMINATION TYPE: US kidneys/renal and bladder DATE OF EXAM: 09/07/2023 COMPARISON: US 03/01/23 CLINICAL INDICATION: Female, 83 years old with history of opal; OPAL EXAM MEASUREMENTS: Right Kidney: 7.7 x 3.8 x 4.2 cm Left Kidney: Unable to visualize. Very limited due to gas. Right Kidney: Small in size. Left Kidney: Unable to visualize Bladder: Unable to visualize. Bilateral Jets seen: No *Incidental finding= appearance of right pleural effusion. IMPRESSION: 1. Small right kidney. 2. Unable to visualize left kidney. 3. Small right pleural effusion
--- NOTE | 2023-09-07 15:16 | P.CNPUL ---
History of Present Illness Consult date: 09/07/23 Reason for consult: dyspnea, pleural effusion History of present illness: 83-year-old female patient hospitalized for worsening shortness of breath. The patient has been having shortness of breath for approximately one week. She is essentially sedentary. She is bedridden. She has chronic difficulty with mobility and ambulation. She has some orthopnea. She has also some proximal nocturnal dyspnea. No fever. No chills. No cough or sputum production. No chest tightness or wheezing. The patient came into the hospital and the patient had a white cell count of 6.3 with a hemoglobin of 9.7. The patient also had a platelet count of 215. Electrolytes were essentially within normal limits. The BUN was 63 with a creatinine of 2.5 and the patient is known to have chronic stage IV kidney disease. The proBNP level was 8200 and the troponins were negative. The chest x-ray showed smaller lung volumes. A pacemaker in the left anterior chest. A small left-sided pleural effusion along with pulmonary vessel congestion. Echo was done and the patient has a systolic function that has been preserved. The patient has an ejection fraction of 50-55%. She has a small left ventricle cavity, moderate left ventricular hypertrophy/concentric LVH. Mild RV dilatation of my pulmonary hypertension. She has severely increased left atrial diameter. She has moderate mitral calcification and mild mitral stenosis and central mitral stenosis with mitral calcification and moderate degree of regurgitation. The patient also has moderate aortic stenosis with a peak gradient of 12 mmHg. No evidence of any pericardial effusion. At this po int in time, the patient is on 2 L of Oxymizer nasal cannula with a pulse ox of 98%. She is afebrile. She was started on Lasix and the patient is currently on 40 negative IV every 12 hours. She is producing adequate amount of urine output at this point in time. No pleurisy. No hemoptysis. No other new complaints. She has increased lower extremity edema. The patient is known to have CAD, pr evious bypass surgery, previous aortic valve replacement, diabetes mellitus, hypertension, hyperlipidemia and chronic stage IV kidney disease and she has a pacemaker for complete AV block. Review of Systems Constitutional: Reports fatigue, Reports weight gain Eyes: denies as per HPI, denies blurred vision, denies bulging eye, denies decreased vision, denies diplopia, denies discharge, denies dry eye, denies irritation, denies itching, denies pain, denies photophobia, denies loss of peripheral vision, denies loss of vision, denies tunnel vision/blind spots Ears: deny: decreased hearing, ear discharge, earache, tinnitus Ears, nose, mouth and throat: Reports as per HPI Breasts: absent: as per HPI, change in shape, gynecomastia, masses, nipple discharge, pain, skin changes, swelling Cardiovascular: Reports decreased exercise tolerance, Reports dyspnea on exertion, Reports edema Respiratory: Reports dyspnea Gastrointestinal: Reports as per HPI Genitourinary: Reports as per HPI Menstruation: Reports as per HPI Musculoskeletal: Reports as per HPI Musculoskeletal: bilateral: ankle swelling, absent: ankle pain, ankle stiffness Integumentary: Reports as per HPI Neurological: Reports as per HPI Psychiatric: Reports as per HPI Endocrine: Reports as per HPI Hematologic/Lymphatic: Reports as per HPI Allergic/Immunologic: Reports as per HPI Past Medical History Past Medical History: Coronary Artery Disease (CAD), Heart Failure, Diabetes Mellitus, Hyperlipidemia, Hypertension, Renal Disease (CKD stage 4) Additional Past Medical History / Comment(s): pacemaker for complete heart block, AVR History of Any Multi-Drug Resistant Organisms: None Reported Past Surgical History: Appendectomy, Cholecystectomy, Coronary Bypass/CABG, Hysterectomy, Pacemaker, Tonsillectomy Past Anesthesia/Blood Transfusion Reactions: No Reported Reaction Past Psychological History: No Psychological Hx Reported Smoking Status: Never smoker Past Alcohol Use History: None Reported Past Drug Use History: None Reported - Past Family History Father History Unknown: Yes Medications and Allergies Home Medications Medication Instructions Recorded Confirmed Type Aspirin [Adult Low Dose Aspirin EC] 81 mg PO DAILY 08/22/22 09/06/23 History Simvastatin [Zocor] 20 mg PO HS 08/22/22 09/06/23 History amLODIPine [Norvasc] 5 mg PO BID 08/22/22 09/06/23 History sitaGLIPtin PHOS/metFORMIN HCL 1 tab PO DAILY 08/22/22 09/06/23 History [Janumet 50-1,000 mg Tablet] Cholecalciferol [Vitamin D3 (25 25 mcg PO DAILY 02/28/23 09/06/23 History Mcg = 1000 Iu)] Cyanocobalamin (Vitamin B-12) 1,000 mcg PO Q2D 02/28/23 09/06/23 History [Vitamin B-12] Doxazosin [Cardura] 1 mg PO BID 02/28/23 09/06/23 History Losartan Potassium [Cozaar] 50 mg PO DAILY 02/28/23 09/06/23 History Metoprolol Succinate [Toprol XL] 200 mg PO DAILY 02/28/23 09/06/23 History Turmeric Root Extract [Turmeric] 500 mg PO DAILY 02/28/23 09/06/23 History Amoxic-Pot Clav 875-125Mg 1 tab PO BID 09/06/23 09/06/23 History [Augmentin 875-125] Ubidecarenone [Co Q-10] 30 mg PO HS 09/06/23 09/06/23 History Allergies Allergy/AdvReac Type Severity Reaction Status Date / Time cephalexin Allergy Unknown Verified 09/06/23 22:57 ciprofloxacin [From Cipro] Allergy Unknown Verified 09/06/23 22:57 codeine Allergy Unknown Verified 09/06/23 22:57 Physical Exam Vitals: Vital Signs Temp Pulse Pulse Resp BP BP Pulse Ox 09/07/23 09:56 64 18 114/59 93 L 09/07/23 08:30 99 09/07/23 08:19 61 18 99/57 96 09/07/23 08:00 64 18 09/07/23 06:05 97.8 F 60 20 100/58 99 09/07/23 05:35 67 14 88/55 100 09/07/23 05:30 66 14 88/55 100 09/07/23 05:25 67 15 88/55 98 09/07/23 05:20 60 12 88/55 100 09/07/23 05:15 75 12 88/55 100 09/07/23 05:10 81 12 88/55 100 09/07/23 05:05 79 13 88/55 100 09/07/23 05:00 62 19 100/51 100 09/07/23 04:55 60 12 100/51 100 09/07/23 04:50 67 11 L 100/51 100 09/07/23 04:45 63 13 100/51 100 09/07/23 04:40 60 12 100/51 100 09/07/23 04:35 71 12 100/51 100 09/07/23 04:30 74 11 L 100/51 100 09/07/23 04:25 66 11 L 100/51 100 11/16/23 04:20 64 13 100/51 100 09/07/23 04:15 64 12 100/51 100 09/07/23 04:10 68 15 100/51 100 09/07/23 04:05 71 14 100/51 100 09/07/23 04:00 70 12 88/54 100 09/07/23 03:55 61 13 88/54 100 09/07/23 03:50 75 13 88/54 100 09/07/23 03:45 61 14 88/54 100 09/07/23 03:40 64 13 88/54 100 09/07/23 03:35 62 13 88/54 100 09/07/23 03:30 66 13 88/54 100 09/07/23 03:25 76 11 L 88/54 100 09/07/23 02:00 61 20 100/68 100 09/07/23 00:00 59 L 18 101/69 98 09/06/23 23:09 98 09/06/23 22:25 71 20 122/74 98 Intake and Output 09/06/23 09/07/23 09/07/23 22:59 06:59 14:59 Other: Voiding Method Diaper Incontinent Weight 61.235 kg 61.235 kg General appearance: alert, in no apparent distress, currently breathing is nonlabored. The patient has been on 2 L of Oxymizer nasal cannula Head exam: Present: atraumatic, normocephalic, normal inspection Eye exam: Present: normal appearance, PERRL, EOMI. Absent: scleral icterus, conjunctival injection, periorbital swelling ENT exam: Present: normal exam, mucous membranes moist Neck exam: Present: normal inspection. Absent: tenderness, meningismus, lymphadenopathy Examination of the lung shows diminished breath sounds bilaterally special left lung base. There is dullness to percussion and is also In the mid and lower lung field bilaterally. Cardiovascular Exam: Present: regular rate, normal rhythm, normal heart sounds. Absent: systolic murmur, diastolic murmur, rubs, gallop, clicks GI/Abdominal exam: Present: soft, normal bowel sounds. Absent: distended, tenderness, guarding, rebound, rigid Extremities exam: Present: normal inspection, full ROM, normal capillary refill. Absent: tenderness, pedal edema, joint swelling, calf tenderness Back exam: Present: normal inspection Neurological exam: Present: alert, oriented X3, CN II-XII intact Psychiatric exam: Present: normal affect, normal mood Skin exam: Present: warm, dry, intact, normal color. Absent: rash Results - Laboratory Findings CBC and BMP: 09/06/23 22:33 09/06/23 22:33 PT/INR, D-dimer PT 10.5 sec (10.0-12.5) 09/06/23 22:33 INR 0.9 (<1.2) 09/06/23 22:33 Abnormal lab findings: Abnormal Labs 09/06/23 09/06/23 22:33 22:33 RBC 3.15 L Hgb 9.7 L Hct 30.8 L BUN 63 H Creatinine 2.54 H Glucose 164 H Alkaline Phosphatase 136 H Total Protein 5.9 L Albumin 2.9 L - Diagnostic Findings Chest x-ray: image reviewed Assessment and Plan Plan: Acute exacerbation of chronic CHF with increased colovesical congestion and development of a left-sided pleural effusion Chronic CHF with preserved LV function. The patient is concentric LVH with diastolic heart failure and valvular heart disease Moderate degree of mitral regurgitation Concentric LVH, moderately severe Chronic stage IV kidney disease Acute hypoxic respiratory failure currently on 2 L of oxygen by nasal cannula Anemia of chronic disease with a hemoglobin of 9.7 Hypertension Coronary artery disease with previous bypass surgery and aortic valve replacement Diabetes mellitus type 2 Hyperlipidemia History of complete AV block and the patient is a pacemaker in place Plan No need for thoracentesis at this point in time Titrate oxygen flow to maintain saturation above 90% Continue IV Lasix and monitor renal function and fluid balance and electrolytes Cardiology consultation, nephrology consultation We'll continue to follow, with optimize the volume status and will make further recommendations based on her progress.
[2023-09-07 17:21] LABS: Glucose,Whole Blood 159 mg/dL (70-110)
[2023-09-07 20:41] LABS: Glucose,Whole Blood 154 mg/dL (70-110)
[2023-09-07] MEDS: ATORVASTATIN 10 MG TAB PO SCH (20:47)
[2023-09-07] MEDS: ACETAMINOPHEN TAB 325 MG TAB PO PRN (21:35)
[2023-09-08 00:41] LABS: Amorphous Sediment,Urine Occasional /hpf; Appearance,Urine Clear (Clear); Bacteria,Urine Occasional /hpf; Bilirubin,Urine Negative (Negative); Blood,Urine Negative (Negative); Color,Urine Light Yellow; Glucose,Urine (UA) Negative (Negative); Hyaline Casts,Urine 1 /lpf (0-2); Ketones,Urine Negative (Negative); Leukocyte Esterase,Urine Large (Negative); Nitrite,Urine Negative (Negative); Protein,Urine Trace (Negative); RBC,Urine 3 /hpf (0-5); Specific Gravity,Urine 1.014 (1.001-1.035); Squamous Epithelial Cell,Urine 3 /hpf (0-4); Urobilinogen,Urine <2.0 mg/dL (<2.0); WBC,Urine 24 /hpf (0-5)
[2023-09-08 05:55] LABS: Glucose,Whole Blood 103 mg/dL (70-110)
[2023-09-08] MEDS: INSULIN ASPART (NovoLOG) 100 UNIT/ML VIAL SQ SCH ×4 (06:04→20:08)
[2023-09-08] MEDS: FUROSEMIDE 10 MG/ML 4 ML VIAL IV SCH (10:02)
[2023-09-08] MEDS: DOXAZOSIN 1 MG TAB PO SCH (10:03)
[2023-09-08] MEDS: HEPARIN SODIUM,PORCINE 5,000 UNIT/ML 1 ML VIAL SQ SCH ×3 (10:03→23:40)
[2023-09-08] MEDS: ASPIRIN 81 MG PO SCH (10:03)
[2023-09-08] MEDS: METOPROLOL SUCCINATE (ER) 100 MG TAB.ER.24H PO SCH (10:03)
[2023-09-08] MEDS: LOSARTAN 50 MG TAB PO SCH (10:11)
[2023-09-08] MEDS: amLODIPine 5 MG TAB PO SCH (10:11)
[2023-09-08 10:53] LABS: Basophils # (A) 0.05 X 10*3/uL (0.00-0.10); Basophils % (A) 0.7 %; Eosinophils # (A) 0.43 X 10*3/uL (0.04-0.35); Eosinophils % (A) 5.9 %; HGB 8.4 g/dL (12.0-15.0); Lymphocytes # (A) 2.34 X 10*3/uL (0.90-5.00); Lymphocytes % (A) 31.9 %; Mean Platelet Volume 12.5 FL (9.5-12.2); Monocytes # (A) 0.74 X 10*3/uL (0.20-1.00); Monocytes % (A) 10.1 %; NRBC Per 100 WBC 0 X 10*3/uL (0.00-0.01); Neutrophils # (A) 3.76 X 10*3/uL (1.80-7.70); Neutrophils % (A) 51.1 %; Platelet Count 148 X 10*3/uL (140-440); RDW 14.5 % (11.5-14.5); WBC 7.34 X 10*3/uL (4.50-10.00)
[2023-09-08 11:18] LABS: BUN/Creat Ratio 20.53 Ratio (12.00-20.00); Blood Urea Nitrogen 61.6 mg/dL (9.0-27.0); Calcium 8.1 mg/dL (8.7-10.3); Chloride 106 mmol/L (96-109); Glucose 82 mg/dL (70-110); Magnesium 2.1 mg/dL (1.5-2.4); Sodium 137 mmol/L (135-145)
--- NOTE | 2023-09-08 11:39 | P.PN ---
Subjective Progress Note Date: 09/08/23 Pt is doing well today, breathing has improved. Ongoing IV lasix. Cr increased to 3, eGFR is 15. Gen: awake, alert HEENT: normocephalic, atraumatic, good hearing acuity, moist mucous membranes Resp: good air exchange, breathing comfortably with no accessory muscle use CVS: good distal perfusion x 4, GI: soft, NTTP, ND : no SPT, no CVAT, woodard catheter not present MSK: no pitting edema, no clubbing Neuro: non-focal, moving all extremities Psych: cooperative, euthymic mood Hospital Course: 83-year-old woman with medical history of chronic kidney disease stage IV, complete heart block status post pacemaker, diabetes type 2, hypertension, hyperlipidemia, CAD status post CABG presented for evaluation of dyspnea. In the emergency room, patient was afebrile, 122/74, heart rate 71, 98% on 2 L of nasal cannula. CBC was remarkable for hemoglobin of 9.7. This metabolic panel remarkable for BUN of 63, creatinine 2.54. Liver function test showed mildly elevated alkaline phosphatase at 136, total protein of 5.9, albumin of 2.9. BNP was 8200. Troponin was less than 0.012. Coags are unremarkable. Chest x-ray showed a sided pleural effusion with increased reticular opacities consistent wi th fluid overload. EKG demonstrated ventricular paced rhythm versus atrial paced rhythm. Patient was admitted to the hospital with plan for diuresis with both pulmonary and nephrology consultation. Assessment/plan: Acute hypoxemic respiratory failure Acute diastolic heart failure Left pleural effusion -Patient started on Lasix IVP 40 mg BID -Continue to monitor creatinine, today is 3 -Nephrology consultation, appreciate recommendations -Pulmonology recommendations appreciated -Continue fluid restriction -Ins and outs and daily weights -Echocardiogram reviewed 09/08: Preserved ejection fraction of 50-55%, severely increased left atrial diameter mild mitral stenosis, moderate MR, atypical septal motion with moderate concentric LVH, and mild to moderate pulmonary hypertension. CKD IV -monitor urine output -avoid nephrotoxic meds CAD s/p CABG -resume aspirin , statin Anemia of chronic disease Hypertension DM Type II -Home medications reviewed and reconciled -accuchecks and aspart SSI full code DVT PPX heparin sc tid Objective - Vital Signs Vital signs: Vital Signs Temp 97.2 F L 09/08/23 07:00 Pulse 63 09/08/23 07:40 Resp 19 09/08/23 07:40 BP 96/55 09/08/23 07:00 Pulse Ox 100 09/08/23 07:00 FiO2 Intake & Output 09/07/23 09/08/23 09/08/23 18:59 06:59 18:59 Intake Total 700 240 Output Total 150 Balance 700 -150 240 Weight 57.5 kg Intake: Oral 700 240 Output: Urine 150 Other: Voiding Method Diaper Diaper Diaper Incontinent Incontinent Incontinent External Catheter External Catheter # Voids 1 0 - Labs CBC & Chem 7: 09/08/23 07:01 09/08/23 07:01 Labs: Abnormal Lab Results - Last 24 Hours (Table) 09/07/23 09/07/23 09/07/23 Range/Units 11:51 17:19 20:40 RBC (4.10-5.20) X 10*6/uL Hgb (12.0-15.0) g/dL Hct (37.2-46.3) % MCV (80.0-97.0) FL MCHC (32.0-37.0) g/dL MPV (9.5-12.2) FL Eosinophils # (0.04-0.35) X 10*3/uL Carbon Dioxide (21.6-31.8) mmol/L BUN (9.0-27.0) mg/dL Creatinine (0.6-1.5) mg/dL Est GFR (CKD-EPI) (>=60) BUN/Creatinine Ratio (12.00-20.00) Ratio POC Glucose (mg/dL) 111 H 159 H 154 H (70-110) mg/dL Calcium (8.7-10.3) mg/dL Urine Protein (Negative) Ur Leukocyte Esterase (Negative) Urine WBC (0-5) /hpf Amorphous Sediment (None) /hpf Urine Bacteria (None) /hpf 09/07/23 09/08/23 09/08/23 Range/Units 23:20 07:01 07:01 RBC 2.80 L (4.10-5.20) X 10*6/uL Hgb 8.4 L (12.0-15.0) g/dL Hct 28.0 L (37.2-46.3) % MCV 100.0 H (80.0-97.0) FL MCHC 30.0 L (32.0-37.0) g/dL MPV 12.5 H (9.5-12.2) FL Eosinophils # 0.43 H (0.04-0.35) X 10*3/uL Carbon Dioxide 21.0 L (21.6-31.8) mmol/L BUN 61.6 H (9.0-27.0) mg/dL Creatinine 3.0 H (0.6-1.5) mg/dL Est GFR (CKD-EPI) 15 L (>=60) BUN/Creatinine Ratio 20.53 H (12.00-20.00) Ratio POC Glucose (mg/dL) (70-110) mg/dL Calcium 8.1 L (8.7-10.3) mg/dL Urine Protein Trace H (Negative) Ur Leukocyte Esterase Large H (Negative) Urine WBC 24 H (0-5) /hpf Amorphous Sediment Occasional H (None) /hpf Urine Bacteria Occasional H (None) /hpf
[2023-09-08 11:40] LABS: Glucose,Whole Blood 109 mg/dL (70-110)
--- NOTE | 2023-09-08 12:03 | P.PN ---
Subjective Patient is seen in follow-up for acute kidney injury on chronic kidney disease. Patient has chronic kidney disease stage IV with baseline creatinine 2.3-2.5. Renal function worse from diuresis. Creatinine 3.0 today. She is on IV Lasix. Urine output not accurately measured. Vital signs are stable. General: No acute distress. HEENT: Head exam is unremarkable. LUNGS: Notable rhonchi or wheezes. HEART: Rate and Rhythm are regular. ABDOMEN: Nontender. EXTREMITITES: 2+ edema. Objective - Vital Signs Vital signs: Vital Signs Temp 97.2 F L 09/08/23 07:00 Pulse 63 09/08/23 07:40 Resp 19 09/08/23 07:40 BP 96/55 09/08/23 07:00 Pulse Ox 100 09/08/23 07:00 FiO2 Intake & Output 09/07/23 09/08/23 09/08/23 18:59 06:59 18:59 Intake Total 700 240 Output Total 150 Balance 700 -150 240 Weight 57.5 kg Intake: Oral 700 240 Output: Urine 150 Other: Voiding Method Diaper Diaper Diaper Incontinent Incontinent Incontinent External Catheter External Catheter # Voids 1 0 - Labs CBC & Chem 7: 09/08/23 07:01 09/08/23 07:01 Labs: Abnormal Lab Results - Last 24 Hours (Table) 09/07/23 09/07/23 09/07/23 Range/Units 17:19 20:40 23:20 RBC (4.10-5.20) X 10*6/uL Hgb (12.0-15.0) g/dL Hct (37.2-46.3) % MCV (80.0-97.0) FL MCHC (32.0-37.0) g/dL MPV (9.5-12.2) FL Eosinophils # (0.04-0.35) X 10*3/uL Carbon Dioxide (21.6-31.8) mmol/L BUN (9.0-27.0) mg/dL Creatinine (0.6-1.5) mg/dL Est GFR (CKD-EPI) (>=60) BUN/Creatinine Ratio (12.00-20.00) Ratio POC Glucose (mg/dL) 159 H 154 H (70-110) mg/dL Calcium (8.7-10.3) mg/dL Urine Protein Trace H (Negative) Ur Leukocyte Esterase Large H (Negative) Urine WBC 24 H (0-5) /hpf Amorphous Sediment Occasional H (None) /hpf Urine Bacteria Occasional H (None) /hpf 09/08/23 09/08/23 Range/Units 07:01 07:01 RBC 2.80 L (4.10-5.20) X 10*6/uL Hgb 8.4 L (12.0-15.0) g/dL Hct 28.0 L (37.2-46.3) % MCV 100.0 H (80.0-97.0) FL MCHC 30.0 L (32.0-37.0) g/dL MPV 12.5 H (9.5-12.2) FL Eosinophils # 0.43 H (0.04-0.35) X 10*3/uL Carbon Dioxide 21.0 L (21.6-31.8) mmol/L BUN 61.6 H (9.0-27.0) mg/dL Creatinine 3.0 H (0.6-1.5) mg/dL Est GFR (CKD-EPI) 15 L (>=60) BUN/Creatinine Ratio 20.53 H (12.00-20.00) Ratio POC Glucose (mg/dL) (70-110) mg/dL Calcium 8.1 L (8.7-10.3) mg/dL Urine Protein (Negative) Ur Leukocyte Esterase (Negative) Urine WBC (0-5) /hpf Amorphous Sediment (None) /hpf Urine Bacteria (None) /hpf Assessment and Plan Plan: Assessment: 1. Chronic kidney disease stage IV secondary to diabetic kidney disease. Baseline creatinine 2.3-2.5. Trace protein on UA. Ultrasound showed atrophic right kidney. Left kidney not visualized. 2. Acute hypoxic respiratory failure. 3. Volume overload. On IV Lasix. 4. Acute on chronic diastolic CHF and mild to moderate mitral regurgitation and pulmonary hypertension. 5. Anemia of chronic kidney disease. Rule out iron deficiency. 6. Hypertension with chronic kidney disease. Blood pressure on the lower side. 7. Diabetes mellitus. 8. Acute kidney injury secondary to ATN secondary to hypotension cardiorenal syndrome. Creatinine 3.0 today. Plan: Maintain IV Lasix. Stop amlodipine. Stop doxazosin. Hold losartan for systolic blood pressure less than 115. Low-salt diet. Avoid nephrotoxins. Continue to monitor renal function and urine output. Check bladder scan to rule out urinary retention. Strict I's and O's.
--- NOTE | 2023-09-08 13:07 | P.PN ---
Subjective Progress Note Date: 09/08/23 83-year-old female patient hospitalized for worsening shortness of breath. The patient has been having shortness of breath for approximately one week. She is essentially sedentary. She is bedridden. She has chronic difficulty with mobility and ambulation. She has some orthopnea. She has also some proximal nocturnal dyspnea. No fever. No chills. No cough or sputum production. No chest tightness or wheezing. The patient came into the hospital and the patient had a white cell count of 6.3 with a hemoglobin of 9.7. The patient also had a platelet count of 215. Electrolytes were essentially within normal limits. The BUN was 63 with a creatinine of 2.5 and the patient is known to have chronic stage IV kidney disease. The proBNP level was 8200 and the troponins were negative. The chest x-ray showed smaller lung volumes. A pacemaker in the left anterior chest. A small left-sided pleural effusion along with pulmonary vessel congestion. Echo was done and the patient has a systolic function that has been preserved. The patient has an ejection fraction of 50-55%. She has a small left ventricle cavity, moderate left ventricular hypertrophy/concentric LVH. Mild RV dilatation of my pulmonary hypertension. She has severely increased left atrial diameter. She has moderate mitral calcification and mild mitral stenosis and central mitral stenosis with mitral calcification and moderate degree of regurgitation. The patient also has moderate aortic stenosis with a peak gradient of 12 mmHg. No evidence of any pericardial effusion. At this point in time, the patient is on 2 L of Oxymizer nasal cannula with a pulse ox of 98%. She is afebrile. She was started on Lasix and the patient is currently on 40 negative IV every 12 hours. She is producing adequate amount of urine output at this point in time. No pleurisy. No hemoptysis. No other new complaints. She has increased lower extremity edema. The patient is known to have CAD, previous bypass surgery, previous aortic valve replacement, diabetes mellitus, hypertension, hyperlipidemia and chronic stage IV kidney disease and she has a pacemaker for complete AV block. On 09/08/2023, the patient is essentially the same. Still has edema lower extremity bilaterally. Remains on Lasix 40 mg IV 12 hours. She did not 3-year-old female patient who came in with signs of CHF. She is extensively debilitated and she is bedridden. The delivery cigars at 7.3 with hemoglobin of 8.4. BUN is at 61 with a creatinine of 3.0. Serum bicarb is at 21. She remains on oxygen at 3 L with a pulse ox of 99%. No cough. No sputum production. No chest tightness. No wheezing. As mentioned, the chest x-ray showed CHF with a left-sided pleural effusion. The EKG shows V pacing. Her echocardiogram shows a preserved LV function, diastolic failure with with moderate degree of mitral regurgitation and pulmonary hypertension. Objective - Vital Signs Vital signs: Vital Signs Temp 97.2 F L 09/08/23 07:00 Pulse 63 09/08/23 07:40 Resp 19 09/08/23 07:40 BP 96/55 09/08/23 07:00 Pulse Ox 100 09/08/23 07:00 FiO2 Intake & Output 09/07/23 09/08/23 09/08/23 18:59 06:59 18:59 Intake Total 700 240 Output Total 150 Balance 700 -150 240 Weight 57.5 kg Intake: Oral 700 240 Output: Urine 150 Other: Voiding Method Diaper Diaper Diaper Incontinent Incontinent Incontinent External Catheter External Catheter # Voids 1 0 - Exam General appearance: alert, in no apparent distress, currently breathing is nonlabored. The patient has been on 2 L of Oxymizer nasal cannula Head exam: Present: atraumatic, normocephalic, normal inspection Eye exam: Present: normal appearance, PERRL, EOMI. Absent: scleral icterus, conjunctival injection, periorbital swelling ENT exam: Present: normal exam, mucous membranes moist Neck exam: Present: normal inspection. Absent: tenderness, meningismus, lymphadenopathy Examination of the lung shows diminished breath sounds bilaterally special left lung base. There is dullness to percussion and is also In the mid and lower lung field bilaterally. Cardiovascular Exam: Present: regular rate, normal rhythm, normal heart sounds. Absent: systolic murmur, diastolic murmur, rubs, gallop, clicks GI/Abdominal exam: Present: soft, normal bowel sounds. Absent: distended, tenderness, guarding, rebound, rigid Extremities exam: Present: normal inspection, full ROM, normal capillary refill. Absent: tenderness, pedal edema, joint swelling, calf tenderness Back exam: Present: normal inspection Neurological exam: Present: alert, oriented X3, CN II-XII intact Psychiatric exam: Present: normal affect, normal mood Skin exam: Present: warm, dry, intact, normal color. Absent: rash - Labs CBC & Chem 7: 09/08/23 07:01 09/08/23 07:01 Labs: Abnormal Lab Results - Last 24 Hours (Table) 09/07/23 09/07/23 09/07/23 Range/Units 11:51 17:19 20:40 POC Glucose (mg/dL) 111 H 159 H 154 H (70-110) mg/dL Urine Protein (Negative) Ur Leukocyte Esterase (Negative) Urine WBC (0-5) /hpf Amorphous Sediment (None) /hpf Urine Bacteria (None) /hpf 09/07/23 Range/Units 23:20 POC Glucose (mg/dL) (70-110) mg/dL Urine Protein Trace H (Negative) Ur Leukocyte Esterase Large H (Negative) Urine WBC 24 H (0-5) /hpf Amorphous Sediment Occasional H (None) /hpf Urine Bacteria Occasional H (None) /hpf Assessment and Plan Plan: Acute exacerbation of chronic CHF with increased colovesical congestion and development of a left-sided pleural effusion, currently being dialyzed IV Lasix Acute hypoxic respiratory failure currently on 3 L of oxygen by nasal cannula Chronic CHF with preserved LV function. The patient is concentric LVH with diastolic heart failure and valvular heart disease Moderate degree of mitral regurgitation Concentric LVH, moderately severe Chronic stage IV kidney disease, with a component of an acute kidney injury probably related to diuresis Anemia of chronic disease with a hemoglobin of 8.4 Hypertension Coronary artery disease with previous bypass surgery and aortic valve replacement Diabetes mellitus type 2 Hyperlipidemia History of complete AV block and the patient is a pacemaker in place Plan Continue Lasix for another 24 hours Repeat chest x-ray in the morning Will consider thoracentesis if no improvement in the pleural fluid and the patient continues to have shortness of breath Titrate oxygen flow to maintain saturation above 90% Continue IV Lasix and monitor renal function and fluid balance and electrolytes Monitor renal function as the patient is a rise in the creatinine Cardiology consultation, nephrology consultation We'll continue to follow, with optimize the volume status and will make further recommendations based on her progress.
[2023-09-08 17:07] LABS: Glucose,Whole Blood 190 mg/dL (70-110)
[2023-09-08 19:57] LABS: Glucose,Whole Blood 143 mg/dL (70-110)
[2023-09-08] MEDS: ATORVASTATIN 10 MG TAB PO SCH (20:55)
[2023-09-08 21:34] LABS: % Iron Saturation 22.62 (12.00-45.00)
[2023-09-09 06:03] LABS: Glucose,Whole Blood 84 mg/dL (70-110)
[2023-09-09] MEDS: INSULIN ASPART (NovoLOG) 100 UNIT/ML VIAL SQ SCH ×4 (06:31→21:55)
[2023-09-09] MEDS: LOSARTAN 50 MG TAB PO SCH (08:08)
--- NOTE | 2023-09-09 08:54 | XR ---
EXAMINATION TYPE: XR chest 1V DATE OF EXAM: 09/09/2023 COMPARISON: 09/06/2023 HISTORY: 83-year-old female pleural effusion TECHNIQUE: Single frontal view of the chest is obtained. FINDINGS: Left anterior chest wall pacemaker generator with right atrial and right ventricular leads. Median st ernotomy wires and post-CABG clips. There is uncoiling moderate left pleural effusion with worsening bibasilar opacities. IMPRESSION: Hypoventilatory changes with ongoing moderate left pleural effusion. There is worsening bibasilar airspace disease. Either pneumonia or sequela of CHF and pulmonary edema.
[2023-09-09] MEDS ORDERED: METOPROLOL SUCCINATE (ER) 50 MG TAB.ER.24H PO SCH (09:00)
[2023-09-09] MEDS: HEPARIN SODIUM,PORCINE 5,000 UNIT/ML 1 ML VIAL SQ SCH ×2 (09:18→16:03)
[2023-09-09] MEDS: ASPIRIN 81 MG PO SCH (09:20)
[2023-09-09 09:40] LABS: BUN/Creat Ratio 20.39 Ratio (12.00-20.00); Blood Urea Nitrogen 63.2 mg/dL (9.0-27.0); Calcium 8.1 mg/dL (8.7-10.3); Carbon Dioxide 21.7 mmol/L (21.6-31.8); Chloride 105 mmol/L (96-109); Glucose 81 mg/dL (70-110); Magnesium 2.2 mg/dL (1.5-2.4); Potassium 5.4 mmol/L (3.5-5.5); Sodium 136 mmol/L (135-145)
[2023-09-09] MEDS: FUROSEMIDE 10 MG/ML 4 ML VIAL IV SCH ×3 (11:09→21:56)
--- NOTE | 2023-09-09 11:40 | P.PN ---
Subjective Progress Note Date: 09/09/23 Pt is hypotensive today. Losartan held, metoprolol held, amlodipine d/c'd. Cr increased to 3.1, eGFR is 14. Gen: awake, alert HEENT: normocephalic, atraumatic, good hearing acuity, moist mucous membranes Resp: good air exchange, breathing comfortably with no accessory muscle use CVS: good distal perfusion x 4, GI: soft, NTTP, ND : no SPT, no CVAT, woodard catheter not present MSK: no pitting edema, no clubbing Neuro: non-focal, moving all extremities Psych: cooperative, euthymic mood Hospital Course: 83-year-old woman with medical history of chronic kidney disease stage IV, complete heart block status post pacemaker, diabetes type 2, hypertension, hyperlipidemia, CAD status post CABG presented for evaluation of dyspnea. In the emergency room, patient was afebrile, 122/74, heart rate 71, 98% on 2 L of nasal cannula. CBC was remarkable for hemoglobin of 9.7. This metabolic panel remarkable for BUN of 63, creatinine 2.54. Liver function test showed mildly elevated alkaline phosphatase at 136, total protein of 5.9, albumin of 2.9. BNP was 8200. Troponin was less than 0.012. Coags are unremarkable. Chest x-ray showed a sided pleural effusion with increased reticular opacities consistent with fluid overload. EKG demonstrated ventricular paced rhythm versus atrial paced rhythm. Patient was admitted to the hospital with plan for diuresis with both pulmonary and nephrology consultation. Echocardiogram reviewed 09/08: Preserved ejection fraction of 50-55%, severely increased left atrial diameter mild mitral stenosis, moderate MR, atypical septal motion with moderate concent jake LVH, and mild to moderate pulmonary hypertension. Assessment/plan: Acute hypoxemic respiratory failure Acute diastolic heart failure Left pleural effusion -Patient's lasix is being held -Continue to monitor creatinine, today is 3.1 -started midodrine 5mg AC-TID -ordered procalcitonin, CBC to rule out pneumonia component despite no fevers. -Nephrology consultation, appreciate recommendations -Pulmonology recommendations appreciated -Liberated fluid restriction given hypotension. -Ins and outs and daily weights CKD IV -monitor urine output -avoid nephrotoxic meds CAD s/p CABG -resume aspirin , statin Anemia of chronic disease Hypertension DM Type II -Home medications reviewed and reconciled -accuchecks and aspart SSI full code DVT PPX heparin sc tid Objective - Vital Signs Vital signs: Vital Signs Temp 97.7 F 09/09/23 07:58 Pulse 63 09/09/23 09:20 Resp 19 09/09/23 07:58 BP 83/48 09/09/23 09:20 Pulse Ox 100 09/09/23 07:58 FiO2 Intake & Output 09/08/23 09/09/23 09/09/23 18:59 06:59 18:59 Intake Total 240 Output Total 200 150 Balance 40 -150 Weight 57.5 kg 46.5 kg 61.235 kg Intake: Oral 240 Output: Urine 200 150 Other: Voiding Method Diaper Diaper External Catheter Incontinent External Catheter External Catheter - Labs CBC & Chem 7: 09/08/23 07:01 09/09/23 05:15 Labs: Abnormal Lab Results - Last 24 Hours (Table) 09/08/23 09/08/23 09/08/23 Range/Units 07:01 17:04 19:56 BUN (9.0-27.0) mg/dL Creatinine (0.6-1.5) mg/dL Est GFR (CKD-EPI) (>=60) BUN/Creatinine Ratio (12.00-20.00) Ratio POC Glucose (mg/dL) 190 H 143 H (70-110) mg/dL Calcium (8.7-10.3) mg/dL TIBC 221 L (228-460) UG/DL Transferrin 158.0 L (204.0-354.0) mg/dL 09/09/23 Range/Units 05:15 BUN 63.2 H (9.0-27.0) mg/dL Creatinine 3.1 H (0.6-1.5) mg/dL Est GFR (CKD-EPI) 14 L (>=60) BUN/Creatinine Ratio 20.39 H (12.00-20.00) Ratio POC Glucose (mg/dL) (70-110) mg/dL Calcium 8.1 L (8.7-10.3) mg/dL TIBC (228-460) UG/DL Transferrin (204.0-354.0) mg/dL
[2023-09-09 11:48] LABS: Basophils % (A) 0 %; Eosinophils # (A) 0.4 k/uL (0-0.7); Eosinophils % (A) 6 %; HCT 30.7 % (34.0-46.0); HGB 9.5 gm/dL (11.4-16.0); Hypochromasia Marked; Lymphocytes # (A) 1.7 k/uL (1.0-4.8); Lymphocytes % (A) 25 %; MCH 31.1 pg (25.0-35.0); MCHC 31.1 g/dL (31.0-37.0); Mean Platelet Volume 10.4; Monocytes # (A) 0.4 k/uL (0-1.0); Monocytes % (A) 6 %; Neutrophils # (A) 4.2 k/uL (1.3-7.7); Neutrophils % (A) 61 %; Platelet Count 158 k/uL (150-450); RBC 3.07 m/uL (3.80-5.40); WBC 6.8 k/uL (3.8-10.6)
[2023-09-09 12:02] LABS: Glucose,Whole Blood 104 mg/dL (70-110)
[2023-09-09] MEDS: MIDODRINE 5 MG TAB PO SCH ×2 (12:21→17:11)
--- NOTE | 2023-09-09 14:06 | P.PN ---
Subjective Progress Note Date: 09/09/23 83-year-old female patient hospitalized for worsening shortness of breath. The patient has been having shortness of breath for approximately one week. She is essentially sedentary. She is bedridden. She has chronic difficulty with mobility and ambulation. She has some orthopnea. She has also some proximal nocturnal dyspnea. No fever. No chills. No cough or sputum production. No chest tightness or wheezing. The patient came into the hospital and the patient had a white cell count of 6.3 with a hemoglobin of 9.7. The patient also had a platelet count of 215. Electrolytes were essentially within normal limits. The BUN was 63 with a creatinine of 2.5 and the patient is known to have chronic stage IV kidney disease. The proBNP level was 8200 and the troponins were negative. The chest x-ray showed smaller lung volumes. A pacemaker in the left anterior chest. A small left-sided pleural effusion along with pulmonary vessel congestion. Echo was done and the patient has a systolic function that has been preserved. The patient has an ejection fraction of 50-55%. She has a small left ventricle cavity, moderate left ventricular hypertrophy/concentric LVH. Mild RV dilatation of my pulmonary hypertension. She has severely increased left atrial diameter. She has moderate mitral calcification and mild mitral stenosis and central mitral stenosis with mitral calcification and moderate degree of regurgitation. The patient also has moderate aortic stenosis with a peak gradient of 12 mmHg. No evidence of any pericardial effusion. At this point in time, the patient is on 2 L of Oxymizer nasal cannula with a pulse ox of 98%. She is afebrile. She was started on Lasix and the patient is currently on 40 negative IV every 12 hours. She is producing adequate amount of urine output at this point in time. No pleurisy. No hemoptysis. No other new complaints. She has increased lower extremity edema. The patient is known to have CAD, previous bypass surgery, previous aortic valve replacement, diabetes mellitus, hypertension, hyperlipidemia and chronic stage IV kidney disease and she has a pacemaker for complete AV block. On 09/08/2023, the patient is essentially the same. Still has edema lower extremity bilaterally. Remains on Lasix 40 mg IV 12 hours. She did not 3-year-old female patient who came in with signs of CHF. She is extensively debilitated and she is bedridden. The delivery cigars at 7.3 with hemoglobin of 8.4. BUN is at 61 with a creatinine of 3.0. Serum bicarb is at 21. She remains on oxygen at 3 L with a pulse ox of 99%. No cough. No sputum production. No chest tightness. No wheezing. As mentioned, the chest x-ray showed CHF with a left-sided pleural effusion. The EKG shows V pacing. Her echocardiogram shows a preserved LV function, diastolic failure with with moderate degree of mitral regurgitation and pulmonary hypertension. On 09/09/2023, the patient is being seen for a follow-up. She is resting comfortably in bed. She is being diuresed with IV Lasix. Repeat chest x-ray was done that showed a persistent left-sided pleural effusion. She is feeling lethargic and her blood pressure is slightly on the lower side on today's evaluation. Based on that, the antihypertensive medication placed on hold and the patient was started on midodrine 5 mg by mouth 3 times a day. The most recent BP is 98/58. She is on 2 L of oxygen by nasal cannula with pulse ox of 99%. She is afebrile. She is in a negative fluid balance patient remains on Lasix 40 mg IV every 24 hours. The BUN today is at 63 with a creatinine of 3.1. Potassium levels at 5.4. Sodium is 136. Hemoglobin is at 9.5. The white cell count at 6.8. Objective - Vital Signs Vital signs: Vital Signs Temp 97.7 F 09/09/23 07:58 Pulse 63 09/09/23 09:20 Resp 19 09/09/23 07:58 BP 83/48 09/09/23 09:20 Pulse Ox 100 09/09/23 07:58 FiO2 Intake & Output 09/08/23 09/09/23 09/09/23 18:59 06:59 18:59 Intake Total 240 Output Total 200 150 Balance 40 -150 Weight 57.5 kg 46.5 kg 61.235 kg Intake: Oral 240 Output: Urine 200 150 Other: Voiding Method Diaper Diaper Incontinent External Catheter External Catheter - Exam General appearance: alert, in no apparent distress, currently breathing is nonlabored. The patient has been on 2 L of Oxymizer nasal cannula Head exam: Present: atraumatic, normocephalic, normal inspection Eye exam: Present: normal appearance, PERRL, EOMI. Absent: scleral icterus, conjunctival injection, periorbital swelling ENT exam: Present: normal exam, mucous membranes moist Neck exam: Present: normal inspection. Absent: tenderness, meningismus, lymphadenopathy Examination of the lung shows diminished breath sounds bilaterally special left lung base. There is dullness to percussion and is also In the mid and lower lung field bilaterally. Cardiovascular Exam: Present: regular rate, normal rhythm, normal heart sounds. Absent: systolic murmur, diastolic murmur, rubs, gallop, clicks GI/Abdominal exam: Present: soft, normal bowel sounds. Absent: distended, te nderness, guarding, rebound, rigid Extremities exam: Present: normal inspection, full ROM, normal capillary refill. Absent: tenderness, pedal edema, joint swelling, calf tenderness Back exam: Present: normal inspection Neurological exam: Present: alert, oriented X3, CN II-XII intact Psychiatric exam: Present: normal affect, normal mood Skin exam: Present: warm, dry, intact, normal color. Absent: rash - Labs CBC & Chem 7: 09/09/23 11:28 09/09/23 05:15 Labs: Abnormal Lab Results - Last 24 Hours (Table) 09/08/23 09/08/23 09/08/23 Range/Units 07:01 07:01 17:04 Carbon Dioxide 21.0 L (21.6-31.8) mmol/L BUN 61.6 H (9.0-27.0) mg/dL Creatinine 3.0 H (0.6-1.5) mg/dL Est GFR (CKD-EPI) 15 L (>=60) BUN/Creatinine Ratio 20.53 H (12.00-20.00) Ratio POC Glucose (mg/dL) 190 H (70-110) mg/dL Calcium 8.1 L (8.7-10.3) mg/dL TIBC 221 L (228-460) UG/DL Transferrin 158.0 L (204.0-354.0) mg/dL 09/08/23 09/09/23 Range/Units 19:56 05:15 Carbon Dioxide (21.6-31.8) mmol/L BUN 63.2 H (9.0-27.0) mg/dL Creatinine 3.1 H (0.6-1.5) mg/dL Est GFR (CKD-EPI) 14 L (>=60) BUN/Creatinine Ratio 20.39 H (12.00-20.00) Ratio POC Glucose (mg/dL) 143 H (70-110) mg/dL Calcium 8.1 L (8.7-10.3) mg/dL TIBC (228-460) UG/DL Transferrin (204.0-354.0) mg/dL Assessment and Plan Plan: Acute exacerbation of chronic CHF with increased colovesical congestion and development of a left-sided pleural effusion, currently being dialyzed IV Lasix Acute hypoxic respiratory failure currently on 3 L of oxygen by nasal cannula Chronic CHF with preserved LV function. The patient is concentric LVH with diastolic heart failure and valvular heart disease Moderate degree of mitral regurgitation Concentric LVH, moderately severe Chronic stage IV kidney disease, with a component of an acute kidney injury probably related to diuresis Anemia of chronic disease with a hemoglobin of 8.4 Hypertension Coronary artery disease with previous bypass surgery and aortic valve replacement Diabetes mellitus type 2 Hyperlipidemia History of complete AV block and the patient is a pacemaker in place Plan Patient is significantly debilitated and she is bedridden Continue diuretics Continue Lasix for another 24 hours, receiving IV Lasix for leg rescue 24 hours Repeat chest x-ray in the morning was noted and the patient has a persistent left-sided pleural effusion Monitor blood pressure Will consider thoracentesis if no improvement in the pleural fluid and the patient continues to have shortness of breath Monitor renal function as the patient is a rise in the creatinine Cardiology consultation, nephrology consultation We'll continue to follow, with optimize the volume status and will make further recommendations based on her progress.
--- NOTE | 2023-09-09 14:48 | P.PN ---
Subjective Progress Note Date: 09/09/23 Follow-up for acute on chronic kidney disease. Stage IV C daily with a baseline creatinine of 2.3-2.5 MG per DL. Urine output of 350 ML's in the last 24 hours. Hypotensive episodes. Objective - Vital Signs Vital signs: Vital Signs Temp 97.7 F 09/09/23 07:58 Pulse 63 09/09/23 09:20 Resp 19 09/09/23 07:58 BP 83/48 09/09/23 09:20 Pulse Ox 100 09/09/23 07:58 FiO2 Intake & Output 09/08/23 09/09/23 09/09/23 18:59 06:59 18:59 Intake Total 240 Output Total 200 150 Balance 40 -150 Weight 57.5 kg 46.5 kg 61.235 kg Intake: Oral 240 Output: Urine 200 150 Other: Voiding Method Diaper Diaper External Catheter Incontinent External Catheter External Catheter - Exam No acute distress S1-S2 heard Decreased breath sounds Edema - Labs CBC & Chem 7: 09/09/23 11:28 09/09/23 05:15 Labs: Abnormal Lab Results - Last 24 Hours (Table) 09/08/23 09/08/23 09/08/23 Range/Units 07:01 17:04 19:56 RBC (3.80-5.40) m/uL Hgb (11.4-16.0) gm/dL Hct (34.0-46.0) % BUN (9.0-27.0) mg/dL Creatinine (0.6-1.5) mg/dL Est GFR (CKD-EPI) (>=60) BUN/Creatinine Ratio (12.00-20.00) Ratio POC Glucose (mg/dL) 190 H 143 H (70-110) mg/dL Calcium (8.7-10.3) mg/dL TIBC 221 L (228-460) UG/DL Transferrin 158.0 L (204.0-354.0) mg/dL 09/09/23 09/09/23 Range/Units 05:15 11: RBC 3.07 L (3.80-5.40) m/uL Hgb 9.5 L (11.4-16.0) gm/dL Hct 30.7 L (34.0-46.0) % BUN 63.2 H (9.0-27.0) mg/dL Creatinine 3.1 H (0.6-1.5) mg/dL Est GFR (CKD-EPI) 14 L (>=60) BUN/Creatinine Ratio 20.39 H (12.00-20.00) Ratio POC Glucose (mg/dL) (70-110) mg/dL Calcium 8.1 L (8.7-10.3) mg/dL TIBC (228-460) UG/DL Transferrin (204.0-354.0) mg/dL Assessment and Plan Assessment: #1 acute kidney injury suspect hemodynamics with low blood pressures. -Baseline creatinine 2.3-2.5 MG per DL. -Urine analysis trace protein -Renal ultrasound atrophic right kidney. #2 acute hypoxic respiratory failure #3 volume overload #4 diastolic CHF with pulmonary hypertension #5 hypotensive episodes Plan: #1 agree with midodrine 5 mg 3 times a day. #2 stop and losartan. #3 continue with Lasix 40 mg IV daily, increased to twice a day based on hemodynamics. #4 labs in the morning
[2023-09-09 16:50] LABS: Glucose,Whole Blood 102 mg/dL (70-110)
[2023-09-09] MEDS ORDERED: FUROSEMIDE 10 MG/ML 4 ML VIAL IV STA (17:01)
[2023-09-09] MEDS ORDERED: ZINC OXIDE PASTE (Z-GUARD) 1 APPLIC APPLIC TOPICAL PRN (18:26)
[2023-09-09 19:26] LABS: Glucose,Whole Blood 139 mg/dL (70-110)
[2023-09-09] MEDS: ATORVASTATIN 10 MG TAB PO SCH (21:56)
[2023-09-10] MEDS: HEPARIN SODIUM,PORCINE 5,000 UNIT/ML 1 ML VIAL SQ SCH ×3 (00:08→17:06)
[2023-09-10] MEDS: ACETAMINOPHEN TAB 325 MG TAB PO PRN (04:38)
[2023-09-10 05:43] LABS: Glucose,Whole Blood 112 mg/dL (70-110)
[2023-09-10] MEDS: MIDODRINE 5 MG TAB PO SCH ×3 (06:30→17:39)
[2023-09-10] MEDS: INSULIN ASPART (NovoLOG) 100 UNIT/ML VIAL SQ SCH ×4 (06:30→21:50)
[2023-09-10 08:41] LABS: Basophils # (A) 0.06 X 10*3/uL (0.00-0.10); Basophils % (A) 0.8 %; Eosinophils # (A) 0.51 X 10*3/uL (0.04-0.35); Eosinophils % (A) 6.5 %; HCT 30.1 % (37.2-46.3); HGB 9.1 g/dL (12.0-15.0); Lymphocytes # (A) 1.74 X 10*3/uL (0.90-5.00); Lymphocytes % (A) 22.3 %; MCH 29.7 pg (27.0-32.0); MCHC 30.2 g/dL (32.0-37.0); MCV 98.4 FL (80.0-97.0); Mean Platelet Volume 12.8 FL (9.5-12.2); Monocytes # (A) 0.74 X 10*3/uL (0.20-1.00); Monocytes % (A) 9.5 %; NRBC Per 100 WBC 0 X 10*3/uL (0.00-0.01); Neutrophils # (A) 4.71 X 10*3/uL (1.80-7.70); Neutrophils % (A) 60.5 %; Platelet Count 179 X 10*3/uL (140-440); RBC 3.06 X 10*6/uL (4.10-5.20); RDW 14.4 % (11.5-14.5); WBC 7.79 X 10*3/uL (4.50-10.00)
[2023-09-10 08:54] LABS: Magnesium 2.3 mg/dL (1.5-2.4)
[2023-09-10] MEDS: ASPIRIN 81 MG PO SCH (09:05)
[2023-09-10 09:15] LABS: Calcium 8.4 mg/dL (8.7-10.3); Carbon Dioxide 21.2 mmol/L (21.6-31.8); Chloride 102 mmol/L (96-109); Glucose 125 mg/dL (70-110); Potassium 5.2 mmol/L (3.5-5.5); Sodium 134 mmol/L (135-145)
[2023-09-10] MEDS: FUROSEMIDE 10 MG/ML 4 ML VIAL IV SCH (09:25)
[2023-09-10] MEDS: BUMETANIDE 0.25 MG/ML 4 ML VIAL IVP SCH ×2 (09:37→21:50)
--- NOTE | 2023-09-10 10:22 | P.PN ---
Subjective Progress Note Date: 09/10/23 Pts BPs are better today, but very minimal UOP with lasix IV. Switching to bumetanide. Losartan held, metoprolol held, amlodipine d/c'd. Cr increased to 3.3 Gen: awake, alert HEENT: normocephalic, atraumatic, good hearing acuity, moist mucous membranes Resp: good air exchange, breathing comfortably with no accessory muscle use CVS: good distal perfusion x 4, GI: soft, NTTP, ND : no SPT, no CVAT, woodard catheter not present MSK: no pitting edema, no clubbing Neuro: non-focal, moving all extremities Psych: cooperative, euthymic mood Hospital Course: 83-year-old woman with medical history of chronic kidney disease stage IV, complete heart block status post pacemaker, diabetes type 2, hypertension, hyperlipidemia, CAD status post CABG presented for evaluation of dyspnea. In the emergency room, patient was afebrile, 122/74, heart rate 71, 98% on 2 L of nasal cannula. CBC was remarkable for hemoglobin of 9.7. This metabolic panel remarkable for BUN of 63, creatinine 2.54. Liver function test showed mildly elevated alkaline phosphatase at 136, total protein of 5.9, albumin of 2.9. BNP was 8200. Troponin was less than 0.012. Coags are unremarkable. Chest x-ray showed a sided pleural effusion with increased reticular opacities consistent with fluid overload. EKG demonstrated ventricular paced rhythm versus atrial paced rhythm. Patient was admitted to the hospital with plan for diuresis with both pulmonary and nephrology consultation. Echocardiogram reviewed 09/08: Preserved ejection fraction of 50-55%, severely increased left atrial diameter mild mitral stenosis, moderate MR, atypical septal motion with moderate concentric LVH, and mild to moderate pulmonary hypertension. Assessment/plan: Acute hypoxemic respiratory failure Acute diastolic heart failure Left pleural effusion -Patient's lasix is discontinued, and bumetanide 2mg IV BID today -Continue to monitor creatinine, today is 3.3 -Continue midodrine 5mg AC-TID -ordered procalcitonin, CBC to rule out pneumonia component despite no fevers. -Nephrology consultation, appreciate recommendations -Pulmonology recommendations appreciated -Liberated fluid restriction given hypotension. -Ins and outs and daily weights OPAL on CKD IV -monitor urine output -avoid nephrotoxic meds -nephrology following -discussed with patient and nephew - patient is okay with dialysis on a temporary basis but not terminal superintendent. CAD s/p CABG -resume aspirin , statin Anemia of chronic disease Hypertension DM Type II -Home medications reviewed and reconciled -accuchecks and aspart SSI full code DVT PPX heparin sc tid Objective - Vital Signs Vital signs: Vital Signs Temp 97.5 F L 09/10/23 09:09 Pulse 62 09/10/23 09:10 Resp 19 09/10/23 07:40 BP 126/59 09/10/23 09:10 Pulse Ox 99 09/10/23 07:40 FiO2 Intake & Output 09/09/23 09/10/23 09/10/23 18:59 06:59 18:59 Output Total 50 200 Balance -50 -200 Weight 61.235 kg 56 kg Output: Urine 50 200 Other: Voiding Method External Catheter External Catheter External Catheter # Voids 1 - Labs CBC & Chem 7: 09/10/23 05:08 09/10/23 05:08 Labs: Abnormal Lab Results - Last 24 Hours (Table) 09/09/23 09/09/23 09/10/23 Range/Units 11:28 19:20 05:08 RBC 3.07 L 3.06 L (3.80-5.40) m/uL Hgb 9.5 L 9.1 L (11.4-16.0) gm/dL Hct 30.7 L 30.1 L (34.0-46.0) % MCV 98.4 H (80.0-97.0) FL MCHC 30.2 L (32.0-37.0) g/dL MPV 12.8 H (9.5-12.2) FL Eosinophils # 0.51 H (0.04-0.35) X 10*3/uL Sodium (135-145) mmol/L Carbon Dioxide (21.6-31.8) mmol/L BUN (9.0-27.0) mg/dL Creatinine (0.6-1.5) mg/dL Est GFR (CKD-EPI) (>=60) BUN/Creatinine Ratio (12.00-20.00) Ratio Glucose (70-110) mg/dL POC Glucose (mg/dL) 139 H (70-110) mg/dL Calcium (8.7-10.3) mg/dL 09/10/23 09/10/23 Range/Units 05:08 05:42 RBC (3.80-5.40) m/uL Hgb (11.4-16.0) gm/dL Hct (34.0-46.0) % MCV (80.0-97.0) FL MCHC (32.0-37.0) g/dL MPV (9.5-12.2) FL Eosinophils # (0.04-0.35) X 10*3/uL Sodium 134 L (135-145) mmol/L Carbon Dioxide 21.2 L (21.6-31.8) mmol/L BUN 67.0 H (9.0-27.0) mg/dL Creatinine 3.3 H (0.6-1.5) mg/dL Est GFR (CKD-EPI) 13 L (>=60) BUN/Creatinine Ratio 20.30 H (12.00-20.00) Ratio Glucose 125 H (70-110) mg/dL POC Glucose (mg/dL) 112 H (70-110) mg/dL Calcium 8.4 L (8.7-10.3) mg/dL
--- NOTE | 2023-09-10 10:39 | US ---
EXAMINATION TYPE: US venous doppler duplex LE RT DATE OF EXAM: 09/10/2023 10:27 AM COMPARISON: NONE CLINICAL INDICATION: Female, 83 years old with history of pain,swelling,rule out dvt; chronic swellin g, no h/o dvt SIDE PERFORMED: Right TECHNIQUE: The lower extremity deep venous system is examined utilizing real time linear array sonog dot with graded compression, doppler sonography and color-flow sonography. VESSELS IMAGED: Common Femoral Vein Deep Femoral Vein Greater Saphenous Vein * Femoral Vein Popliteal Vein Small Saphenous Vein * Proximal Calf Veins (* superficial vessels) Elderly patient has rigid legs bent toward the left, extensive edema and very tender to touch, limi sandra my views Right Leg: Limited views of right leg appear negative for DVT - good color flow was seen within leg Grayscale, color doppler, spectral doppler imaging performed of the deep veins of the lower extremiti es. There is normal flow, compressibility, vascular waveforms. Superficial soft tissue edema is elieser ntified. IMPRESSION: 1. No evidence of deep venous embolus. 2. Superficial soft tissue edema.
[2023-09-10 11:56] LABS: Glucose,Whole Blood 90 mg/dL (70-110)
--- NOTE | 2023-09-10 13:34 | P.PN ---
Subjective Progress Note Date: 09/10/23 83-year-old female patient hospitalized for worsening shortness of breath. The patient has been having shortness of breath for approximately one week. She is essentially sedentary. She is bedridden. She has chronic difficulty with mobility and ambulation. She has some orthopnea. She has also some proximal nocturnal dyspnea. No fever. No chills. No cough or sputum production. No chest tightness or wheezing. The patient came into the hospital and the patient had a white cell count of 6.3 with a hemoglobin of 9.7. The patient also had a platelet count of 215. Electrolytes were essentially within normal limits. The BUN was 63 with a creatinine of 2.5 and the patient is known to have chronic stage IV kidney disease. The proBNP level was 8200 and the troponins were negative. The chest x-ray showed smaller lung volumes. A pacemaker in the left anterior chest. A small left-sided pleural effusion along with pulmonary vessel congestion. Echo was done and the patient has a systolic function that has been preserved. The patient has an ejection fraction of 50-55%. She has a small left ventricle cavity, moderate left ventricular hypertrophy/concentric LVH. Mild RV dilatation of my pulmonary hypertension. She has severely increased left atrial diameter. She has moderate mitral calcification and mild mitral stenosis and central mitral stenosis with mitral calcification and moderate degree of regurgitation. The patient also has moderate aortic stenosis with a peak gradient of 12 mmHg. No evidence of any pericardial effusion. At this point in time, the patient is on 2 L of Oxymizer nasal cannula with a pulse ox of 98%. She is afebrile. She was started on Lasix and the patient is currently on 40 negative IV every 12 hours. She is producing adequate amount of urine output at this point in time. No pleurisy. No hemoptysis. No other new complaints. She has increased lower extremity edema. The patient is known to have CAD, previous bypass surgery, previous aortic valve replacement, diabetes mellitus, hypertension, hyperlipidemia and chronic stage IV kidney disease and she has a pacemaker for complete AV block. On 09/08/2023, the patient is essentially the same. Still has edema lower extremity bilaterally. Remains on Lasix 40 mg IV 12 hours. She did not 3-year-old female patient who came in with signs of CHF. She is extensively debilitated and she is bedridden. The delivery cigars at 7.3 with hemoglobin of 8.4. BUN is at 61 with a creatinine of 3.0. Serum bicarb is at 21. She remains on oxygen at 3 L with a pulse ox of 99%. No cough. No sputum production. No chest tightness. No wheezing. As mentioned, the chest x-ray showed CHF with a left-sided pleural effusion. The EKG shows V pacing. Her echocardiogram shows a preserved LV function, diastolic failure with with moderate degree of mitral regurgitation and pulmonary hypertension. On 09/09/2023, the patient is being seen for a follow-up. She is resting comfortably in bed. She is being diuresed with IV Lasix. Repeat chest x-ray was done that showed a persistent left-sided pleural effusion. She is feeling lethargic and her blood pressure is slightly on the lower side on today's evaluation. Based on that, the antihypertensive medication placed on hold and the patient was started on midodrine 5 mg by mouth 3 times a day. The most recent BP is 98/58. She is on 2 L of oxygen by nasal cannula with pulse ox of 99%. She is afebrile. She is in a negative fluid balance patient remains on Lasix 40 mg IV every 24 hours. The BUN today is at 63 with a creatinine of 3.1. Potassium levels at 5.4. Sodium is 136. Hemoglobin is at 9.5. The white cell count at 6.8. 09/10/2023, the patient is lethargic and sleepy, no worsening in rest or status. She remains on Bumex 2 mg IV every 12 hours. The chest x-ray from yesterday showed a stable except pleural effusion. There is also CHF and increased vessel markings. Ultrasound Doppler of the lower extremity shows no evidence of any DVT. The patient is currently on 2 L of oxygen by nasal cannula with a pulse ox of 99%. She has diastolic heart failure with moderate MR and mild mitral stenosis and moderate degree of pulmonary hypertension. Creatinine is stable at 3.3 and a BUN is at 67. Sodium levels of 134 and a white cell count is at 7.7 with a hemoglobin of 9.1. Objective - Vital Signs Vital signs: Vital Signs Temp 97.5 F L 09/10/23 09:09 Pulse 62 09/10/23 09:10 Resp 19 09/10/23 07:40 BP 126/59 09/10/23 09:10 Pulse Ox 99 09/10/23 07:40 FiO2 Intake & Output 09/09/23 09/10/23 09/10/23 18:59 06:59 18:59 Output Total 50 200 Balance -50 -200 Weight 61.235 kg 56 kg Output: Urine 50 200 Other: Voiding Method External Catheter External Catheter External Catheter # Voids 1 - Exam General appearance: alert, in no apparent distress, currently breathing is nonlabored. The patient has been on 2 L of Oxymizer nasal cannula Head exam: Present: atraumatic, normocephalic, normal inspection Eye exam: Present: normal appearance, PERRL, EOMI. Absent: scleral icterus, conjunctival injection, periorbital swelling ENT exam: Present: normal exam, mucous membranes moist Neck exam: Present: normal inspection. Absent: tenderness, meningismus, lymphadenopathy Examination of the lung shows diminished breath sounds bilaterally special left lung base. There is dullness to percussion and is also In the mid and lower lung field bilaterally. Cardiovascular Exam: Present: regular rate, normal rhythm, normal heart sounds. Absent: systolic murmur, diastolic murmur, rubs, gallop, clicks GI/Abdominal exam: Present: soft, normal bowel sounds. Absent: distended, tenderness, guarding, rebound, rigid Extremities exam: Present: normal inspection, full ROM, normal capillary refill. Absent: tenderness, pedal edema, joint swelling, calf tenderness Back exam: Present: normal inspection Neurological exam: Present: alert, oriented X3, CN II-XII intact Psychiatric exam: Present: normal affect, normal mood Skin exam: Present: warm, dry, intact, normal color. Absent: rash - Labs CBC & Chem 7: 09/10/23 05:08 09/10/23 05:08 Labs: Abnormal Lab Results - Last 24 Hours (Table) 09/09/23 09/09/23 09/10/23 Range/Units 11:28 19:20 05:08 RBC 3.07 L 3.06 L (3.80-5.40) m/uL Hgb 9.5 L 9.1 L (11.4-16.0) gm/dL Hct 30.7 L 30.1 L (34.0-46.0) % MCV 98.4 H (80.0-97.0) FL MCHC 30.2 L (32.0-37.0) g/dL MPV 12.8 H (9.5-12.2) FL Eosinophils # 0.51 H (0.04-0.35) X 10*3/uL Sodium (135-145) mmol/L Carbon Dioxide (21.6-31.8) mmol/L BUN (9.0-27.0) mg/dL Creatinine (0.6-1.5) mg/dL Est GFR (CKD-EPI) (>=60) BUN/Creatinine Ratio (12.00-20.00) Ratio Glucose (70-110) mg/dL POC Glucose (mg/dL) 139 H (70-110) mg/dL Calcium (8.7-10.3) mg/dL 09/10/23 09/10/23 Range/Units 05:08 05:42 RBC (3.80-5.40) m/uL Hgb (11.4-16.0) gm/dL Hct (34.0-46.0) % MCV (80.0-97.0) FL MCHC (32.0-37.0) g/dL MPV (9.5-12.2) FL Eosinophils # (0.04-0.35) X 10*3/uL Sodium 134 L (135-145) mmol/L Carbon Dioxide 21.2 L (21.6-31.8) mmol/L BUN 67.0 H (9.0-27.0) mg/dL Creatinine 3.3 H (0.6-1.5) mg/dL Est GFR (CKD-EPI) 13 L (>=60) BUN/Creatinine Ratio 20.30 H (12.00-20.00) Ratio Glucose 125 H (70-110) mg/dL POC Glucose (mg/dL) 112 H (70-110) mg/dL Calcium 8.4 L (8.7-10.3) mg/dL Assessment and Plan Plan: Acute exacerbation of chronic CHF with increased colovesical congestion and development of a left-sided pleural effusion, currently being diuresed IV Bumex Acute hypoxic respiratory failure currently on 3 L of oxygen by nasal cannula Chronic CHF with preserved LV function. The patient is concentric LVH with diastolic heart failure and valvular heart disease Moderate degree of mitral regurgitation Concentric LVH, moderately severe Chronic stage IV kidney disease, with a component of an acute kidney injury probably related to diuresis Anemia of chronic disease with a hemoglobin of 8.4 Hypertension Coronary artery disease with previous bypass surgery and aortic valve replacement Diabetes mellitus type 2 Hyperlipidemia History of complete AV block and the patient is a pacemaker in place Plan We'll continue same treatment Patient is significantly debilitated and she is bedridden Continue diuretics, Bumex, 2 mg IV every 12 hours Creatinine is stable Repeat chest x-ray in the morning was noted and the patient has a persistent left-sided pleural effusion Monitor blood pressure Will consider thoracentesis if no improvement in the pleural fluid and the patient continues to have shortness of breath Monitor renal function as the patient is a rise in the creatinine Cardiology consultation, nephrology consultation We'll continue to follow, with optimize the volume status and will make further recommendations based on her progress.
--- NOTE | 2023-09-10 16:19 | P.PN ---
Subjective Progress Note Date: 09/10/23 Follow-up for acute on chronic kidney disease. Stage IV chronic kidney disease with a baseline creatinine of 2.3-2.5 MG per DL. Urine output of 250 ML's in the last 24 hours. Hypotensive episodes. Objective - Vital Signs Vital signs: Vital Signs Temp 96.6 F L 09/10/23 14:52 Pulse 57 L 09/10/23 14:52 Resp 17 09/10/23 14:52 BP 113/66 09/10/23 14:52 Pulse Ox 98 09/10/23 14:52 FiO2 Intake & Output 09/09/23 09/10/23 09/10/23 18:59 06:59 18:59 Output Total 50 200 320 Balance -50 -200 -320 Weight 61.235 kg 56 kg Output: Urine 50 200 320 Uretheral (Ordoñez) 320 Other: Voiding Method External Catheter External Catheter External Catheter # Voids 1 - Exam No acute distress S1-S2 heard Decreased breath sounds Edema - Labs CBC & Chem 7: 09/10/23 05:08 09/10/23 05:08 Labs: Abnormal Lab Results - Last 24 Hours (Table) 09/09/23 09/09/23 09/10/23 Range/Units 05:15 19:20 05:08 RBC 3.06 L (4.10-5.20) X 10*6/uL Hgb 9.1 L (12.0-15.0) g/dL Hct 30.1 L (37.2-46.3) % MCV 98.4 H (80.0-97.0) FL MCHC 30.2 L (32.0-37.0) g/dL MPV 12.8 H (9.5-12.2) FL Eosinophils # 0.51 H (0.04-0.35) X 10*3/uL Sodium (135-145) mmol/L Carbon Dioxide (21.6-31.8) mmol/L BUN (9.0-27.0) mg/dL Creatinine (0.6-1.5) mg/dL Est GFR (CKD-EPI) (>=60) BUN/Creatinine Ratio (12.00-20.00) Ratio Glucose (70-110) mg/dL POC Glucose (mg/dL) 139 H (70-110) mg/dL Calcium (8.7-10.3) mg/dL Procalcitonin 0.13 H (0.02-0.09) ng/mL 09/10/23 09/10/23 Range/Units 05:08 05:42 RBC (4.10-5.20) X 10*6/uL Hgb (12.0-15.0) g/dL Hct (37.2-46.3) % MCV (80.0-97.0) FL MCHC (32.0-37.0) g/dL MPV (9.5-12.2) FL Eosinophils # (0.04-0.35) X 10*3/uL Sodium 134 L (135-145) mmol/L Carbon Dioxide 21.2 L (21.6-31.8) mmol/L BUN 67.0 H (9.0-27.0) mg/dL Creatinine 3.3 H (0.6-1.5) mg/dL Est GFR (CKD-EPI) 13 L (>=60) BUN/Creatinine Ratio 20.30 H (12.00-20.00) Ratio Glucose 125 H (70-110) mg/dL POC Glucose (mg/dL) 112 H (70-110) mg/dL Calcium 8.4 L (8.7-10.3) mg/dL Procalcitonin (0.02-0.09) ng/mL Assessment and Plan Assessment: #1 acute kidney injury suspect hemodynamics with low blood pressures. -Baseline creatinine 2.3-2.5 MG per DL. -Urine analysis trace protein -Renal ultrasound atrophic right kidney. #2 acute hypoxic respiratory failure #3 volume overload #4 diastolic CHF with pulmonary hypertension #5 hypotensive episodes Plan: #1 agree with midodrine 5 mg 3 times a day. #2 stop all antihypertensive medications. #3 Lasix changed to Bumex, #4 labs in the morning
[2023-09-10 16:55] LABS: Glucose,Whole Blood 135 mg/dL (70-110)
[2023-09-10 20:43] LABS: Glucose,Whole Blood 144 mg/dL (70-110)
[2023-09-10] MEDS: ATORVASTATIN 10 MG TAB PO SCH (21:50)
[2023-09-11] MEDS: HEPARIN SODIUM,PORCINE 5,000 UNIT/ML 1 ML VIAL SQ SCH ×4 (00:04→23:39)
[2023-09-11 06:16] LABS: Glucose,Whole Blood 89 mg/dL (70-110)
[2023-09-11] MEDS: INSULIN ASPART (NovoLOG) 100 UNIT/ML VIAL SQ SCH ×4 (08:11→20:22)
[2023-09-11] MEDS: MIDODRINE 5 MG TAB PO SCH ×3 (08:19→17:18)
[2023-09-11] MEDS: ASPIRIN 81 MG PO SCH (08:20)
[2023-09-11] MEDS: BUMETANIDE 0.25 MG/ML 4 ML VIAL IVP SCH ×2 (08:20→20:28)
[2023-09-11 08:40] LABS: Basophils # (A) 0.06 X 10*3/uL (0.00-0.10); Basophils % (A) 0.7 %; Eosinophils # (A) 0.44 X 10*3/uL (0.04-0.35); Eosinophils % (A) 5.4 %; HCT 30.3 % (37.2-46.3); Lymphocytes # (A) 1.92 X 10*3/uL (0.90-5.00); Lymphocytes % (A) 23.4 %; MCH 29.6 pg (27.0-32.0); MCHC 29.7 g/dL (32.0-37.0); MCV 99.7 FL (80.0-97.0); Mean Platelet Volume 12.3 FL (9.5-12.2); Monocytes # (A) 0.69 X 10*3/uL (0.20-1.00); Monocytes % (A) 8.4 %; NRBC Per 100 WBC 0 X 10*3/uL (0.00-0.01); Neutrophils # (A) 5.07 X 10*3/uL (1.80-7.70); Neutrophils % (A) 61.9 %; Platelet Count 191 X 10*3/uL (140-440); RBC 3.04 X 10*6/uL (4.10-5.20); RDW 14.4 % (11.5-14.5)
[2023-09-11 09:02] LABS: BUN/Creat Ratio 21.85 Ratio (12.00-20.00); Blood Urea Nitrogen 72.1 mg/dL (9.0-27.0); Calcium 8.3 mg/dL (8.7-10.3); Carbon Dioxide 22.9 mmol/L (21.6-31.8); Chloride 102 mmol/L (96-109); Glucose 88 mg/dL (70-110); Magnesium 2.3 mg/dL (1.5-2.4); Potassium 5.2 mmol/L (3.5-5.5); Sodium 136 mmol/L (135-145)
--- NOTE | 2023-09-11 10:37 | XR ---
EXAMINATION TYPE: XR chest 1V portable DATE OF EXAM: 09/11/2023 10:21 AM CLINICAL INDICATION:Female, 83 years old with history of Pleural effusion; COMPARISON: Chest radiographs from 09/09/2023 TECHNIQUE: XR chest 1V portable Frontal view of the chest. FINDINGS: Lungs/Pleura: Blunting of left costophrenic angle not significantly changed given differences in tech nique. There is no evidence of right pleural effusion, focal consolidation, or pneumothorax. Pulmonary vascularity: Unremarkable. Heart/mediastinum: Cardiomediastinal silhouette is enlarged and stable. Atherosclerotic calcificatio ns are seen in the aorta. Two lead cardiac conduction device overlying the left hemithorax with lead tips projecting over the right ventricle and right atrium. Musculoskeletal: Degenerative changes of the shoulder joints. Midline sternotomy wires are noted. Right upper quadrant course thickening close. IMPRESSION: Similar exam with right perihilar haziness and left pleural effusion.
[2023-09-11 11:49] LABS: Glucose,Whole Blood 90 mg/dL (70-110)
--- NOTE | 2023-09-11 12:56 | P.PN ---
Subjective Patient is seen for follow-up for acute kidney injury. She has underlying chronic kidney disease stage IV with baseline creatinine 2.3-2.5 mg/dL. Renal function has been stable with creatinine staying at about 3.3 mg/dL. Currently maintained on IV Bumex. No significant complaints today. Started on midodrine for hypotension. Objective - Vital Signs Vital signs: Vital Signs Temp 96.3 F L 09/11/23 07:25 Pulse 62 09/11/23 07:25 Resp 19 09/11/23 07:25 BP 122/54 09/11/23 07:25 Pulse Ox 97 09/11/23 07:25 FiO2 Intake & Output 09/10/23 09/11/23 09/11/23 18:59 06:59 18:59 Output Total 320 525 Balance -320 -525 Weight 56 kg Output: Urine 320 525 Uretheral (Ordoñez) 320 Other: Voiding Method External Catheter Indwelling Catheter - Exam Patient is awake, comfortable, no acute distress Alert oriented 3 Examination of the heart S1 and S2 Examination the lungs decreased breath sounds at the bases Abdomen is soft nontender Examination lower extremity shows edema 1+ bilaterally - Labs CBC & Chem 7: 09/11/23 06:08 09/11/23 06:08 Labs: Abnormal Lab Results - Last 24 Hours (Table) 09/10/23 09/10/23 09/11/23 Range/Units 16:53 20:42 06:08 RBC 3.04 L (4.10-5.20) X 10*6/uL Hgb 9.0 L (12.0-15.0) g/dL Hct 30.3 L (37.2-46.3) % MCV 99.7 H (80.0-97.0) FL MCHC 29.7 L (32.0-37.0) g/dL MPV 12.3 H (9.5-12.2) FL Eosinophils # 0.44 H (0.04-0.35) X 10*3/uL BUN (9.0-27.0) mg/dL Creatinine (0.6-1.5) mg/dL Est GFR (CKD-EPI) (>=60) BUN/Creatinine Ratio (12.00-20.00) Ratio POC Glucose (mg/dL) 135 H 144 H (70-110) mg/dL Calcium (8.7-10.3) mg/dL 09/11/23 Range/Units 06:08 RBC (4.10-5.20) X 10*6/uL Hgb (12.0-15.0) g/dL Hct (37.2-46.3) % MCV (80.0-97.0) FL MCHC (32.0-37.0) g/dL MPV (9.5-12.2) FL Eosinophils # (0.04-0.35) X 10*3/uL BUN 72.1 H (9.0-27.0) mg/dL Creatinine 3.3 H (0.6-1.5) mg/dL Est GFR (CKD-EPI) 13 L (>=60) BUN/Creatinine Ratio 21.85 H (12.00-20.00) Ratio POC Glucose (mg/dL) (70-110) mg/dL Calcium 8.3 L (8.7-10.3) mg/dL Assessment and Plan Assessment: 1. Acute kidney injury, ATN associated with low blood pressure. Renal function stable UA shows trace protein and renal ultrasound shows atrophic right kidney. 2. Volume overload 3. Diastolic CHF with pulmonary hypertension 4. Acute hypoxic respiratory failure, improved Plan: Continue with IV Bumex Continue midodrine Repeat labs in a.m.
--- NOTE | 2023-09-11 13:36 | P.PN ---
Subjective Progress Note Date: 09/11/23 Hospital Course: 83-year-old woman with medical history of chronic kidney disease stage IV, complete heart block status post pacemaker, diabetes type 2, hypertension, hyperlipidemia, CAD status post CABG presented for evaluation of dyspnea. In the emergency room, patient was afebrile, 122/74, heart rate 71, 98% on 2 L of nasal cannula. CBC was remarkable for hemoglobin of 9.7. This metabolic panel remarkable for BUN of 63, creatinine 2.54. Liver function test showed mildly elevated alkaline phosphatase at 136, total protein of 5.9, albumin of 2.9. BNP was 8200. Troponin was less than 0.012. Coags are unremarkable. Chest x-ray showed a sided pleural effusion with increased reticular opacities consistent with fluid overload. EKG demonstrated ventricular paced rhythm versus atrial paced rhythm. Patient was admitted to the hospital with plan for diuresis with both pulmonary and nephrology consultation. Echocardiogram reviewed 09/08: Preserved ejection fraction of 50-55%, severely increased left atrial diameter mild mitral stenosis, moderate MR, atypical septal motion with moderate concentric LVH, and mild to moderate pulmonary hypertension. Currently on IV diuretics. Subjective: She is seen and examined at bedside. Respiratory function about the same, not on home oxygen. Ordoñez catheter in place. Pertinent positives and negatives as discussed above, a complete review of systems was performed and all other systems are negative. Vitals Signs Reviewed. General: nontoxic, no distress, appears at stated age Derm: warm, dry Head: atraumatic, normocephalic, symmetric Eyes: EOMI, no lid lag, anicteric sclera Mouth: no lip lesion, mucus membranes moist Cardiovascular: S1S2 reg, no murmur Lungs: Bilateral rales, worse on left , no accessory muscle use Abdominal: soft, nontender to palpation, no guarding, no appreciable organomegaly Ext: no gross muscle atrophy, 2+ pitting edema, no contractures Neuro: CN II-XI grossly intact, no focal neuro deficits Psych: Alert, oriented, appropriate affect Data Reviewed Today: Pertinent Labs: Hemoglobin 9, sodium 136, potassium 5.2, creatinine 3.3, glucose range between 89-144 Imaging: Chest x-ray personally interpreted, similar to yesterday, shows left sided pleural effusion and right-sided hilar opacity Assessment and Plan: Patient is critically ill, prognosis is guarded. 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 -Holding antihypertensives CAD s/p CABG -resume aspirin , statin Anemia of chronic disease Hypertension DM Type II -Home medications reviewed and reconciled -accuchecks and aspart SSI Debility, wheelchair-bound Patient willing to see outpatient palliative DVT ppx: Subcu heparin Code status: Full code Anticipated discharge place: Pending clinical course Anticipated discharge time: And clinical course Objective - Vital Signs Vital signs: Vital Signs Temp 96.3 F L 09/11/23 07:25 Pulse 62 09/11/23 07:25 Resp 19 09/11/23 07:25 BP 122/54 09/11/23 07:25 Pulse Ox 98 09/11/23 12:57 FiO2 Intake & Output 09/10/23 09/11/23 09/11/23 18:59 06:59 18:59 Output Total 320 525 Balance -320 -525 Weight 56 kg Output: Urine 320 525 Uretheral (Ordoñez) 320 Other: Voiding Method External Catheter Indwelling Catheter - Labs CBC & Chem 7: 09/11/23 06:08 09/11/23 06:08 Labs: Abnormal Lab Results - Last 24 Hours (Table) 09/10/23 09/10/23 09/11/23 Range/Units 16:53 20:42 06:08 RBC 3.04 L (4.10-5.20) X 10*6/uL Hgb 9.0 L (12.0-15.0) g/dL Hct 30.3 L (37.2-46.3) % MCV 99.7 H (80.0-97.0) FL MCHC 29.7 L (32.0-37.0) g/dL MPV 12.3 H (9.5-12.2) FL Eosinophils # 0.44 H (0.04-0.35) X 10*3/uL BUN (9.0-27.0) mg/dL Creatinine (0.6-1.5) mg/dL Est GFR (CKD-EPI) (>=60) BUN/Creatinine Ratio (12.00-20.00) Ratio POC Glucose (mg/dL) 135 H 144 H (70-110) mg/dL Calcium (8.7-10.3) mg/dL 09/11/23 Range/Units 06:08 RBC (4.10-5.20) X 10*6/uL Hgb (12.0-15.0) g/dL Hct (37.2-46.3) % MCV (80.0-97.0) FL MCHC (32.0-37.0) g/dL MPV (9.5-12.2) FL Eosinophils # (0.04-0.35) X 10*3/uL BUN 72.1 H (9.0-27.0) mg/dL Creatinine 3.3 H (0.6-1.5) mg/dL Est GFR (CKD-EPI) 13 L (>=60) BUN/Creatinine Ratio 21.85 H (12.00-20.00) Ratio POC Glucose (mg/dL) (70-110) mg/dL Calcium 8.3 L (8.7-10.3) mg/dL
--- NOTE | 2023-09-11 14:32 | P.PN ---
Subjective Progress Note Date: 09/11/23 83-year-old female patient hospitalized for worsening shortness of breath. The patient has been having shortness of breath for approximately one week. She is essentially sedentary. She is bedridden. She has chronic difficulty with mobility and ambulation. She has some orthopnea. She has also some proximal nocturnal dyspnea. No fever. No chills. No cough or sputum production. No chest tightness or wheezing. The patient came into the hospital and the patient had a white cell count of 6.3 with a hemoglobin of 9.7. The patient also had a platelet count of 215. Electrolytes were essentially within normal limits. The BUN was 63 with a creatinine of 2.5 and the patient is known to have chronic stage IV kidney disease. The proBNP level was 8200 and the troponins were negative. The chest x-ray showed smaller lung volumes. A pacemaker in the left anterior chest. A small left-sided pleural effusion along with pulmonary vessel congestion. Echo was done and the patient has a systolic function that has been preserved. The patient has an ejection fraction of 50-55%. She has a small l eft ventricle cavity, moderate left ventricular hypertrophy/concentric LVH. Mild RV dilatation of my pulmonary hypertension. She has severely increased left atrial diameter. She has moderate mitral calcification and mild mitral stenosis and central mitral stenosis with mitral calcification and moderate degree of regurgitation. The patient also has moderate aortic stenosis with a peak gradient of 12 mmHg. No evidence of any pericardial effusion. At this point in time, the patient is on 2 L of Oxymizer nasal cannula with a pulse ox of 98%. She is afebrile. She was started on Lasix and the patient is currently on 40 negative IV every 12 hours. She is producing adequate amount of urine output at this point in time. No pleurisy. No hemoptysis. No other new complaints. She has increased lower extremity edema. The patient is known to have CAD, previous bypass surgery, previous aortic valve replacement, diabetes mellitus, hypertension, hyperlipidemia and chronic stage IV kidney disease and she has a pacemaker for complete AV block. On 09/08/2023, the patient is essentially the same. Still has edema lower extremity bilaterally. Remains on Lasix 40 mg IV 12 hours. She did not 3-year-old female patient who came in with signs of CHF. She is extensively debilitated and she is bedridden. The delivery cigars at 7.3 with hemoglobin of 8.4. BUN is at 61 with a creatinine of 3.0. Serum bicarb is at 21. She remains on oxygen at 3 L with a pulse ox of 99%. No cough. No sputum production. No chest tightness. No wheezing. As mentioned, the chest x-ray showed CHF with a left-sided pleural effusion. The EKG shows V pacing. Her echocardiogram shows a preserved LV function, diastolic failure with with moderate degree of mitral regurgitation and pulmonary hypertension. On 09/09/2023, the patient is being seen for a follow-up. She is resting comfortably in bed. She is being diuresed with IV Lasix. Repeat chest x-ray was done that showed a persistent left-sided pleural effusion. She is feeling lethargic and her blood pressure is slightly on the lower side on today's evaluation. Based on that, the antihypertensive medication placed on hold and the patient was started on midodrine 5 mg by mouth 3 times a day. The most recent BP is 98/58. She is on 2 L of oxygen by nasal cannula with pulse ox of 99%. She is afebrile. She is in a negative fluid balance patient remains on Lasix 40 mg IV every 24 hours. The BUN today is at 63 with a creatinine of 3.1. Potassium levels at 5.4. Sodium is 136. Hemoglobin is at 9.5. The white cell count at 6.8. 09/10/2023, the patient is lethargic and sleepy, no worsening in rest or status. She remains on Bumex 2 mg IV every 12 hours. The chest x-ray from yesterday showed a stable except pleural effusion. There is also CHF and increased vessel markings. Ultrasound Doppler of the lower extremity shows no evidence of any DVT. The patient is currently on 2 L of oxygen by nasal cannula with a pulse ox of 99%. She has diastolic heart failure with moderate MR and mild mitral stenosis and moderate degree of pulmonary hypertension. Creatinine is stable at 3.3 and a BUN is at 67. Sodium levels of 134 and a white cell count is at 7.7 with a hemoglobin of 9.1. The patient is seen today 09/11/2023 in follow-up on the regular medical floor. She is currently awake and alert. Breathing a bit easier today compared to yesterday. Maintaining good O2 saturation in the upper 90s on 2 L nasal cannula. She's afebrile. Hemodynamically stable. Chest x-ray continues to show blunting of the left costophrenic angle not much improved compared to previous. Right perihilar haziness. White count 8.2. Hemoglobin 9.0. Platelets 191. Sodium 136. Potassium 5.2. Bicarb 23. BUN 72. Creatinine 3.3. Glucose 89. She is continued on Bumex 2 mg IV push twice daily. Heparin for DVT prophylaxis. Objective - Vital Signs Vital signs: Vital Signs Temp 96.3 F L 09/11/23 07:25 Pulse 62 09/11/23 07:25 Resp 19 09/11/23 07:25 BP 122/54 09/11/23 07:25 Pulse Ox 98 09/11/23 12:57 FiO2 Intake & Output 09/10/23 09/11/23 09/11/23 18:59 06:59 18:59 Output Total 320 525 Balance -320 -525 Weight 56 kg Output: Urine 320 525 Uretheral (Ordoñez) 320 Other: Voiding Method External Catheter Indwelling Catheter Indwelling Catheter - Exam GENERAL EXAM: Alert, frail 83-year-old female, on 2 L nasal cannula, fairly comfortable in no apparent distress. HEAD: Normocephalic. EYES: Normal reaction of pupils, equal size. NOSE: Clear with pink turbinates. THROAT: No erythema or exudates. NECK: No masses, no JVD. CHEST: No chest wall deformity. LUNGS: Equal air entry with crackles, diminished in the left lung base. CVS: S1 and S2 normal with no audible murmur, regular rhythm. ABDOMEN: No hepatosplenomegaly, normal bowel sounds, no guarding or rigidity. SPINE: No scoliosis or deformity SKIN: No rashes CENTRAL NERVOUS SYSTEM: No focal deficits, tone is normal in all 4 extremities. EXTREMITIES: There is no peripheral edema. No clubbing, no cyanosis. Peripheral pulses are intact. - Labs CBC & Chem 7: 09/11/23 06:08 09/11/23 06:08 Labs: Abnormal Lab Results - Last 24 Hours (Table) 09/10/23 09/10/23 09/11/23 Range/Units 16:53 20:42 06:08 RBC 3.04 L (4.10-5.20) X 10*6/uL Hgb 9.0 L (12.0-15.0) g/dL Hct 30.3 L (37.2-46.3) % MCV 99.7 H (80.0-97.0) FL MCHC 29.7 L (32.0-37.0) g/dL MPV 12.3 H (9.5-12.2) FL Eosinophils # 0.44 H (0.04-0.35) X 10*3/uL BUN (9.0-27.0) mg/dL Creatinine (0.6-1.5) mg/dL Est GFR (CKD-EPI) (>=60) BUN/Creatinine Ratio (12.00-20.00) Ratio POC Glucose (mg/dL) 135 H 144 H (70-110) mg/dL Calcium (8.7-10.3) mg/dL 09/11/23 Range/Units 06:08 RBC (4.10-5.20) X 10*6/uL Hgb (12.0-15.0) g/dL Hct (37.2-46.3) % MCV (80.0-97.0) FL MCHC (32.0-37.0) g/dL MPV (9.5-12.2) FL Eosinophils # (0.04-0.35) X 10*3/uL BUN 72.1 H (9.0-27.0) mg/dL Creatinine 3.3 H (0.6-1.5) mg/dL Est GFR (CKD-EPI) 13 L (>=60) BUN/Creatinine Ratio 21.85 H (12.00-20.00) Ratio POC Glucose (mg/dL) (70-110) mg/dL Calcium 8.3 L (8.7-10.3) mg/dL Assessment and Plan Assessment: Acute exacerbation of chronic CHF with increased congestion and development of a left-sided pleural effusion, currently being diuresed with IV Bumex Acute hypoxic respiratory failure currently on 2 L of oxygen by nasal cannula Chronic CHF with preserved LV function. The patient is concentric LVH with diastolic heart failure and valvular heart disease Moderate degree of mitral regurgitation Concentric LVH, moderately severe Chronic stage IV kidney disease, with a component of an acute kidney injury probably related to diuresis Anemia of chronic disease with a hemoglobin of 9.0 Hypertension Coronary artery disease with previous bypass surgery and aortic valve replacement Diabetes mellitus type 2 Hyperlipidemia History of complete AV block and the patient is a pacemaker in place Plan: The patient was seen and evaluated Chest x-ray, labs and medications reviewed Left pleural effusion persists We will obtain a ultrasound May need to proceed with thoracentesis Continue IV Bumex Heparin for DVT prophylaxis Titrate the FiO2 as tolerated We will continue to follow I have personally seen and examined the patient, performed the documentation and the assessment and plan as written. Number of minutes spent on the visit: 10.
[2023-09-11 17:07] LABS: Glucose,Whole Blood 92 mg/dL (70-110)
--- NOTE | 2023-09-11 17:53 | US ---
EXAMINATION TYPE: US chest DATE OF EXAM: 09/11/2023 COMPARISON: CXR CLINICAL INDICATION: Female, 83 years old with history of Markings for thoracentesis by pulmonary sta ff; Effusions TECHNIQUE: Targeted ultrasound of the posterior lower bilateral hemithoraces EXAM MEASUREMENTS: Right Pleural Effusion pocket size: 8.1 cm Right skin surface to fluid distance: 4.0 cm Left Pleural Effusion pocket size: 9.9 cm Left skin surface to fluid distance: 3.7 cm Right side marked for possible thoracentesis outside the dept. Left side marked for possible thoracentesis outside the dept. Pulmonologists are able to review the images in the patient?s EMR. IMPRESSIONS: Bilateral pleural cavities marked for possible thoracentesis.
[2023-09-11 20:11] LABS: Glucose,Whole Blood 104 mg/dL (70-110)
[2023-09-11] MEDS: ATORVASTATIN 10 MG TAB PO SCH (20:29)
[2023-09-12 06:26] LABS: Glucose,Whole Blood 77 mg/dL (70-110)
[2023-09-12] MEDS: INSULIN ASPART (NovoLOG) 100 UNIT/ML VIAL SQ SCH ×4 (06:59→21:01)
[2023-09-12] MEDS: MIDODRINE 5 MG TAB PO SCH ×3 (07:06→17:10)
[2023-09-12] MEDS: ASPIRIN 81 MG PO SCH (09:06)
[2023-09-12] MEDS: HEPARIN SODIUM,PORCINE 5,000 UNIT/ML 1 ML VIAL SQ SCH ×2 (09:06→16:05)
[2023-09-12] MEDS: BUMETANIDE 0.25 MG/ML 4 ML VIAL IVP SCH ×2 (09:08→20:57)
[2023-09-12 11:01] LABS: Glucose,Whole Blood 104 mg/dL (70-110)
--- NOTE | 2023-09-12 11:41 | P.PN ---
Subjective Progress Note Date: 09/12/23 Hospital Course: 83-year-old woman with medical history of chronic kidney disease stage IV, complete heart block status post pacemaker, diabetes type 2, hypertension, hyperlipidemia, CAD status post CABG presented for evaluation of dyspnea. In the emergency room, patient was afebrile, 122/74, heart rate 71, 98% on 2 L of nasal cannula. CBC was remarkable for hemoglobin of 9.7. This metabolic panel remarkable for BUN of 63, creatinine 2.54. Liver function test showed mildly elevated alkaline phosphatase at 136, total protein of 5.9, albumin of 2.9. BNP was 8200. Troponin was less than 0.012. Coags are unremarkable. Chest x-ray showed a sided pleural effusion with increased reticular opacities consistent with fluid overload. EKG demonstrated ventricular paced rhythm versus atrial paced rhythm. Patient was admitted to the hospital with plan for diuresis with both pulmonary and nephrology consultation. Echocardiogram reviewed 09/08: Preserved ejection fraction of 50-55%, severely increased left atrial diameter mild mitral stenosis, moderate MR, atypical septal motion with moderate concentric LVH, and mild to moderate pulmonary hypertension. Currently on IV diuretics. Subjective: She is seen and examined at bedside. Respiratory function slightly improved, not on home oxygen. Ordoñez catheter in place. Pertinent positives and negatives as discussed above, a complete review of systems was performed and all other systems are negative. Vitals Signs Reviewed. General: nontoxic, no distress, appears at stated age Derm: warm, dry Head: atraumatic, normocephalic, symmetric Eyes: EOMI, no lid lag, anicteric sclera Mouth: no lip lesion, mucus membranes moist Cardiovascular: S1S2 reg, no murmur Lungs: Bilateral rales, worse on left , no accessory muscle use Abdominal: soft, nontender to palpation, no guarding, no appreciable organomegaly Ext: no gross muscle atrophy, 2+ pitting edema, no contractures Neuro: CN II-XI grossly intact, no focal neuro deficits Psych: Alert, oriented, appropriate affect Data Reviewed Today: Pertinent Labs: BMP and magnesium pending, will be reviewed when available. Blood sugars range between 77-104 Imaging: No new imaging Assessment and Plan: Acute hypoxemic respiratory failure Acute diastolic heart failure Left pleural effusion -Nephrology following, continue Bumex 2 mg IV twice a day -Magnesium and BMP pending, will be reviewed when available -Continue midodrine 5mg AC-TID -Pulmonology also following, can consider thoracentesis -Wean oxygen -Ins and outs and daily weights OPAL on CKD IV -monitor urine output -avoid nephrotoxic meds -nephrology following -Previously discussed with patient and nephew - patient is okay with dialysis on a temporary basis but not intermediate. -Holding antihypertensives CAD s/p CABG -resume aspirin , statin Anemia of chronic disease Hypertension DM Type II -Home medications reviewed and reconciled -accuchecks and aspart SSI Debility, wheelchair-bound Patient willing to see outpatient palliative DVT ppx: Subcu heparin Code status: Full code Anticipated discharge place: Pending clinical course Anticipated discharge time: Pending clinical course Objective - Vital Signs Vital signs: Vital Signs Temp 97.5 F L 09/12/23 07:27 Pulse 62 09/12/23 07:27 Resp 17 09/12/23 07:27 BP 143/78 09/12/23 07:27 Pulse Ox 100 09/12/23 07:41 FiO2 Intake & Output 09/11/23 09/12/23 09/12/23 18:59 06:59 18:59 Output Total 220 Balance -220 Weight 46 kg Output: Urine 220 Other: Voiding Method Indwelling Catheter Indwelling Catheter Indwelling Catheter - Labs CBC & Chem 7: 09/11/23 06:08 09/11/23 06:08
--- NOTE | 2023-09-12 12:13 | P.PN ---
Subjective Patient is seen for follow-up for acute kidney injury. She has underlying chronic kidney disease stage IV with baseline creatinine 2.3-2.5 mg/dL. Renal function has been stable with creatinine staying at about 3.3 mg/dL. Currently maintained on IV Bumex. Has an indwelling Ordoñez catheter. 24 hour urine charted at 845 mL. No significant complaints today. Started on midodrine for hypotension. Objective - Vital Signs Vital signs: Vital Signs Temp 97.5 F L 09/12/23 07:27 Pulse 62 09/12/23 07:27 Resp 17 09/12/23 07:27 BP 143/78 09/12/23 07:27 Pulse Ox 100 09/12/23 07:41 FiO2 Intake & Output 09/11/23 09/12/23 09/12/23 18:59 06:59 18:59 Output Total 220 Balance -220 Weight 46 kg Output: Urine 220 Other: Voiding Method Indwelling Catheter Indwelling Catheter Indwelling Catheter - Exam Patient is awake, comfortable, no acute distress Alert oriented 3 Examination of the heart S1 and S2 Examination the lungs decreased breath sounds at the bases Abdomen is soft nontender Examination lower extremity shows edema 1+ bilaterally - Labs CBC & Chem 7: 09/11/23 06:08 09/11/23 06:08 Assessment and Plan Assessment: 1. Acute kidney injury, ATN associated with low blood pressure. Renal function stable UA shows trace protein and renal ultrasound shows atrophic right kidney. 2. Volume overload 3. Diastolic CHF with pulmonary hypertension 4. Acute hypoxic respiratory failure, improved Plan: Continue with IV Bumex Continue midodrine Repeat labs in a.m.
[2023-09-12 13:50] LABS: BUN/Creat Ratio 23.15 Ratio (12.00-20.00); Blood Urea Nitrogen 76.4 mg/dL (9.0-27.0); Calcium 8.4 mg/dL (8.7-10.3); Carbon Dioxide 21.5 mmol/L (21.6-31.8); Chloride 102 mmol/L (96-109); Glucose 78 mg/dL (70-110); Magnesium 2.1 mg/dL (1.5-2.4); Potassium 4.8 mmol/L (3.5-5.5); Sodium 135 mmol/L (135-145)
--- NOTE | 2023-09-12 14:44 | P.PN ---
Subjective Progress Note Date: 09/12/23 83-year-old female patient hospitalized for worsening shortness of breath. The patient has been having shortness of breath for approximately one week. She is essentially sedentary. She is bedridden. She has chronic difficulty with mobility and ambulation. She has some orthopnea. She has also some proximal nocturnal dyspnea. No fever. No chills. No cough or sputum production. No chest tightness or wheezing. The patient came into the hospital and the patient had a white cell count of 6.3 with a hemoglobin of 9.7. The patient also had a platelet count of 215. Electrolytes were essentially within normal limits. The BUN was 63 with a creatinine of 2.5 and the patient is known to have chronic stage IV kidney disease. The proBNP level was 8200 and the troponins were negative. The chest x-ray showed smaller lung volumes. A pacemaker in the left anterior chest. A small left-sided pleural effusion along with pulmonary vessel congestion. Echo was done and the patient has a systolic function that has been preserved. The patient has an ejection fraction of 50-55%. She has a small l eft ventricle cavity, moderate left ventricular hypertrophy/concentric LVH. Mild RV dilatation of my pulmonary hypertension. She has severely increased left atrial diameter. She has moderate mitral calcification and mild mitral stenosis and central mitral stenosis with mitral calcification and moderate degree of regurgitation. The patient also has moderate aortic stenosis with a peak gradient of 12 mmHg. No evidence of any pericardial effusion. At this point in time, the patient is on 2 L of Oxymizer nasal cannula with a pulse ox of 98%. She is afebrile. She was started on Lasix and the patient is currently on 40 negative IV every 12 hours. She is producing adequate amount of urine output at this point in time. No pleurisy. No hemoptysis. No other new complaints. She has increased lower extremity edema. The patient is known to have CAD, previous bypass surgery, previous aortic valve replacement, diabetes mellitus, hypertension, hyperlipidemia and chronic stage IV kidney disease and she has a pacemaker for complete AV block. On 09/08/2023, the patient is essentially the same. Still has edema lower extremity bilaterally. Remains on Lasix 40 mg IV 12 hours. She did not 3-year-old female patient who came in with signs of CHF. She is extensively debilitated and she is bedridden. The delivery cigars at 7.3 with hemoglobin of 8.4. BUN is at 61 with a creatinine of 3.0. Serum bicarb is at 21. She remains on oxygen at 3 L with a pulse ox of 99%. No cough. No sputum production. No chest tightness. No wheezing. As mentioned, the chest x-ray showed CHF with a left-sided pleural effusion. The EKG shows V pacing. Her echocardiogram shows a preserved LV function, diastolic failure with with moderate degree of mitral regurgitation and pulmonary hypertension. On 09/09/2023, the patient is being seen for a follow-up. She is resting comfortably in bed. She is being diuresed with IV Lasix. Repeat chest x-ray was done that showed a persistent left-sided pleural effusion. She is feeling lethargic and her blood pressure is slightly on the lower side on today's evaluation. Based on that, the antihypertensive medication placed on hold and the patient was started on midodrine 5 mg by mouth 3 times a day. The most recent BP is 98/58. She is on 2 L of oxygen by nasal cannula with pulse ox of 99%. She is afebrile. She is in a negative fluid balance patient remains on Lasix 40 mg IV every 24 hours. The BUN today is at 63 with a creatinine of 3.1. Potassium levels at 5.4. Sodium is 136. Hemoglobin is at 9.5. The white cell count at 6.8. 09/10/2023, the patient is lethargic and sleepy, no worsening in rest or status. She remains on Bumex 2 mg IV every 12 hours. The chest x-ray from yesterday showed a stable except pleural effusion. There is also CHF and increased vessel markings. Ultrasound Doppler of the lower extremity shows no evidence of any DVT. The patient is currently on 2 L of oxygen by nasal cannula with a pulse ox of 99%. She has diastolic heart failure with moderate MR and mild mitral stenosis and moderate degree of pulmonary hypertension. Creatinine is stable at 3.3 and a BUN is at 67. Sodium levels of 134 and a white cell count is at 7.7 with a hemoglobin of 9.1. The patient is seen today 09/11/2023 in follow-up on the regular medical floor. She is currently awake and alert. Breathing a bit easier today compared to yesterday. Maintaining good O2 saturation in the upper 90s on 2 L nasal cannula. She's afebrile. Hemodynamically stable. Chest x-ray continues to show blunting of the left costophrenic angle not much improved compared to previous. Right perihilar haziness. White count 8.2. Hemoglobin 9.0. Platelets 191. Sodium 136. Potassium 5.2. Bicarb 23. BUN 72. Creatinine 3.3. Glucose 89. She is continued on Bumex 2 mg IV push twice daily. Heparin for DVT prophylaxis. The patient is seen today 09/12/2023 in follow-up on the regular medical floor. She is resting comfortably in bed. Awake and alert in no acute distress. Breathing easier today compared to yesterday. She is currently in a -1 L balance. She is maintaining O2 saturation 90s on 3 L/m per nasal cannula. U ltrasound of the chest revealed a 8.1 cm pocket on the right and a 9.9 cm pocket on the left. Sodium 135. Potassium 4.8. Bicarb 22. BUN 76. Creatinine 3.3. Glucose 78. She is continued on Bumex 2 mg IVP twice daily. Heparin for DVT prophylaxis. Objective - Vital Signs Vital signs: Vital Signs Temp 98.2 F 09/12/23 13:31 Pulse 58 L 09/12/23 13:31 Resp 17 09/12/23 13:31 BP 113/55 09/12/23 13:31 Pulse Ox 100 09/12/23 13:31 FiO2 Intake & Output 09/11/23 09/12/23 09/12/23 18:59 06:59 18:59 Output Total 220 Balance -220 Weight 46 kg Output: Urine 220 Other: Voiding Method Indwelling Catheter Indwelling Catheter Indwelling Catheter - Exam GENERAL EXAM: Alert, frail 83-year-old female, on 3 L nasal cannula, comfortable in no apparent distress. HEAD: Normocephalic. EYES: Normal reaction of pupils, equal size. NOSE: Clear with pink turbinates. THROAT: No erythema or exudates. NECK: No masses, no JVD. CHEST: No chest wall deformity. LUNGS: Equal air entry with crackles, diminished in the left lung base. CVS: S1 and S2 normal with no audible murmur, regular rhythm. ABDOMEN: No hepatosplenomegaly, normal bowel sounds, no guarding or rigidity. SPINE: No scoliosis or deformity SKIN: No rashes CENTRAL NERVOUS SYSTEM: No focal deficits, tone is normal in all 4 extremities. EXTREMITIES: There is no peripheral edema. No clubbing, no cyanosis. Peripheral pulses are intact. - Labs CBC & Chem 7: 09/11/23 06:08 09/12/23 07:07 Labs: Abnormal Lab Results - Last 24 Hours (Table) 09/12/23 Range/Units 07:07 Carbon Dioxide 21.5 L (21.6-31.8) mmol/L BUN 76.4 H (9.0-27.0) mg/dL Creatinine 3.3 H (0.6-1.5) mg/dL Est GFR (CKD-EPI) 13 L (>=60) BUN/Creatinine Ratio 23.15 H (12.00-20.00) Ratio Calcium 8.4 L (8.7-10.3) mg/dL Assessment and Plan Assessment: Acute exacerbation of chronic CHF with increased congestion and development of a left-sided pleural effusion, currently being diuresed with IV Bumex Acute hypoxic respiratory failure currently on 2 L of oxygen by nasal cannula Chronic CHF with preserved LV function. The patient is concentric LVH with diastolic heart failure and valvular heart disease Moderate degree of mitral regurgitation Concentric LVH, moderately severe Chronic stage IV kidney disease, with a component of an acute kidney injury probably related to diuresis Anemia of chronic disease with a hemoglobin of 9.0 Hypertension Coronary artery disease with previous bypass surgery and aortic valve replacement Diabetes mellitus type 2 Hyperlipidemia History of complete AV block and the patient is a pacemaker in place Plan: The patient was seen and evaluated Ultrasound of the chest, labs and medications reviewed The patient remains in a negative balance Continue IV Bumex Stable and on 3 L nasal cannula Patient is quite frail We'll hold off on thoracentesis for now Heparin for DVT prophylaxis Titrate the FiO2 as tolerated We will continue to follow I have personally seen and examined the patient, performed the documentation and the assessment and plan as written. Number of minutes spent on the visit: 10.
[2023-09-12 16:15] LABS: Glucose,Whole Blood 91 mg/dL (70-110)
[2023-09-12 20:02] LABS: Glucose,Whole Blood 105 mg/dL (70-110)
[2023-09-12] MEDS: ATORVASTATIN 10 MG TAB PO SCH (20:56)
[2023-09-13] MEDS: HEPARIN SODIUM,PORCINE 5,000 UNIT/ML 1 ML VIAL SQ SCH ×4 (00:03→23:00)
[2023-09-13 06:10] LABS: Glucose,Whole Blood 75 mg/dL (70-110)
[2023-09-13] MEDS: INSULIN ASPART (NovoLOG) 100 UNIT/ML VIAL SQ SCH ×4 (06:32→20:05)
[2023-09-13] MEDS: MIDODRINE 5 MG TAB PO SCH ×3 (08:38→16:30)
[2023-09-13 08:54] LABS: Potassium 4.6 mmol/L (3.5-5.1)
[2023-09-13 08:55] LABS: African American GFR (CKD) 16 (>60 ml/min/1.73 sqM); Anion Gap 10 mmol/L; Blood Urea Nitrogen 84 mg/dL (7-17); Calcium 7.9 mg/dL (8.4-10.2); Carbon Dioxide 22 mmol/L (22-30); Chloride 103 mmol/L (98-107); Glucose 80 mg/dL (74-99); Magnesium 1.9 mg/dL (1.6-2.3); Non-African American GFR(CKD) 14 (>60 ml/min/1.73 sqM); Sodium 135 mmol/L (137-145)
[2023-09-13] MEDS: BUMETANIDE 0.25 MG/ML 4 ML VIAL IVP SCH (09:09)
[2023-09-13] MEDS: ASPIRIN 81 MG PO SCH (09:10)
[2023-09-13 11:17] LABS: Glucose,Whole Blood 93 mg/dL (70-110)
--- NOTE | 2023-09-13 12:57 | P.PN ---
Subjective Progress Note Date: 09/13/23 83-year-old female patient hospitalized for worsening shortness of breath. The patient has been having shortness of breath for approximately one week. She is essentially sedentary. She is bedridden. She has chronic difficulty with mobility and ambulation. She has some orthopnea. She has also some proximal nocturnal dyspnea. No fever. No chills. No cough or sputum production. No chest tightness or wheezing. The patient came into the hospital and the patient had a white cell count of 6.3 with a hemoglobin of 9.7. The patient also had a platelet count of 215. Electrolytes were essentially within normal limits. The BUN was 63 with a creatinine of 2.5 and the patient is known to have chronic stage IV kidney disease. The proBNP level was 8200 and the troponins were negative. The chest x-ray showed smaller lung volumes. A pacemaker in the left anterior chest. A small left-sided pleural effusion along with pulmonary vessel congestion. Echo was done and the patient has a systolic function that has been preserved. The patient has an ejection fraction of 50-55%. She has a small l eft ventricle cavity, moderate left ventricular hypertrophy/concentric LVH. Mild RV dilatation of my pulmonary hypertension. She has severely increased left atrial diameter. She has moderate mitral calcification and mild mitral stenosis and central mitral stenosis with mitral calcification and moderate degree of regurgitation. The patient also has moderate aortic stenosis with a peak gradient of 12 mmHg. No evidence of any pericardial effusion. At this point in time, the patient is on 2 L of Oxymizer nasal cannula with a pulse ox of 98%. She is afebrile. She was started on Lasix and the patient is currently on 40 negative IV every 12 hours. She is producing adequate amount of urine output at this point in time. No pleurisy. No hemoptysis. No other new complaints. She has increased lower extremity edema. The patient is known to have CAD, previous bypass surgery, previous aortic valve replacement, diabetes mellitus, hypertension, hyperlipidemia and chronic stage IV kidney disease and she has a pacemaker for complete AV block. On 09/08/2023, the patient is essentially the same. Still has edema lower extremity bilaterally. Remains on Lasix 40 mg IV 12 hours. She did not 3-year-old female patient who came in with signs of CHF. She is extensively debilitated and she is bedridden. The delivery cigars at 7.3 with hemoglobin of 8.4. BUN is at 61 with a creatinine of 3.0. Serum bicarb is at 21. She remains on oxygen at 3 L with a pulse ox of 99%. No cough. No sputum production. No chest tightness. No wheezing. As mentioned, the chest x-ray showed CHF with a left-sided pleural effusion. The EKG shows V pacing. Her echocardiogram shows a preserved LV function, diastolic failure with with moderate degree of mitral regurgitation and pulmonary hypertension. On 09/09/2023, the patient is being seen for a follow-up. She is resting comfortably in bed. She is being diuresed with IV Lasix. Repeat chest x-ray was done that showed a persistent left-sided pleural effusion. She is feeling lethargic and her blood pressure is slightly on the lower side on today's evaluation. Based on that, the antihypertensive medication placed on hold and the patient was started on midodrine 5 mg by mouth 3 times a day. The most recent BP is 98/58. She is on 2 L of oxygen by nasal cannula with pulse ox of 99%. She is afebrile. She is in a negative fluid balance patient remains on Lasix 40 mg IV every 24 hours. The BUN today is at 63 with a creatinine of 3.1. Potassium levels at 5.4. Sodium is 136. Hemoglobin is at 9.5. The white cell count at 6.8. 09/10/2023, the patient is lethargic and sleepy, no worsening in rest or status. She remains on Bumex 2 mg IV every 12 hours. The chest x-ray from yesterday showed a stable except pleural effusion. There is also CHF and increased vessel markings. Ultrasound Doppler of the lower extremity shows no evidence of any DVT. The patient is currently on 2 L of oxygen by nasal cannula with a pulse ox of 99%. She has diastolic heart failure with moderate MR and mild mitral stenosis and moderate degree of pulmonary hypertension. Creatinine is stable at 3.3 and a BUN is at 67. Sodium levels of 134 and a white cell count is at 7.7 with a hemoglobin of 9.1. The patient is seen today 09/11/2023 in follow-up on the regular medical floor. She is currently awake and alert. Breathing a bit easier today compared to yesterday. Maintaining good O2 saturation in the upper 90s on 2 L nasal cannula. She's afebrile. Hemodynamically stable. Chest x-ray continues to show blunting of the left costophrenic angle not much improved compared to previous. Right perihilar haziness. White count 8.2. Hemoglobin 9.0. Platelets 191. Sodium 136. Potassium 5.2. Bicarb 23. BUN 72. Creatinine 3.3. Glucose 89. She is continued on Bumex 2 mg IV push twice daily. Heparin for DVT prophylaxis. The patient is seen today 09/12/2023 in follow-up on the regular medical floor. She is resting comfortably in bed. Awake and alert in no acute distress. Breathing easier today compared to yesterday. She is currently in a -1 L balance. She is maintaining O2 saturation 90s on 3 L/m per nasal cannula. U ltrasound of the chest revealed a 8.1 cm pocket on the right and a 9.9 cm pocket on the left. Sodium 135. Potassium 4.8. Bicarb 22. BUN 76. Creatinine 3.3. Glucose 78. She is continued on Bumex 2 mg IVP twice daily. Heparin for DVT prophylaxis. The patient is seen today 09/13/2023 in follow-up on the regular medical floor. She is sitting up in bed. Awake and alert in no acute distress. She is maintaining good O2 saturations in the upper 90s on 3 L/m per nasal cannula. She denies any worsening shortness of breath, cough or congestion. Sodium 135. Potassium 4.6. Bicarb 22. BUN 84. Creatinine 3.02. Glucose 80. She is continued on Bumex 2 mg IV P twice daily. Heparin for DVT prophylaxis. Ordoñez catheter remains in place with 600 ML's output thus far. Objective - Vital Signs Vital signs: Vital Signs Temp 97.9 F 09/13/23 07:25 Pulse 63 09/13/23 07:25 Resp 18 09/13/23 07:25 BP 115/68 09/13/23 07:25 Pulse Ox 97 09/13/23 07:25 FiO2 Intake & Output 09/12/23 09/13/23 09/13/23 18:59 06:59 18:59 Output Total 600 Balance -600 Weight 45 kg Output: Urine 600 Other: Voiding Method Indwelling Catheter Indwelling Catheter External Catheter - Exam GENERAL EXAM: Alert, frail 83-year-old female, resting comfortably in bed, on 3 L nasal cannula, in no apparent distress. HEAD: Normocephalic. EYES: Normal reaction of pupils, equal size. NOSE: Clear with pink turbinates. THROAT: No erythema or exudates. NECK: No masses, no JVD. CHEST: No chest wall deformity. LUNGS: Equal air entry with crackles, diminished in the left lung base. CVS: S1 and S2 normal with no audible murmur, regular rhythm. ABDOMEN: No hepatosplenomegaly, normal bowel sounds, no guarding or rigidity. SPINE: No scoliosis or deformity SKIN: No rashes CENTRAL NERVOUS SYSTEM: No focal deficits, tone is normal in all 4 extremities. EXTREMITIES: There is no peripheral edema. No clubbing, no cyanosis. Peripheral pulses are intact. - Labs CBC & Chem 7: 09/11/23 06:08 09/13/23 08:14 Labs: Abnormal Lab Results - Last 24 Hours (Table) 09/12/23 09/13/23 Range/Units 07:07 08:14 Sodium 135 L (137-145) mmol/L Carbon Dioxide 21.5 L (21.6-31.8) mmol/L BUN 76.4 H 84 H (9.0-27.0) mg/dL Creatinine 3.3 H 3.02 H (0.6-1.5) mg/dL Est GFR (CKD-EPI) 13 L (>=60) BUN/Creatinine Ratio 23.15 H (12.00-20.00) Ratio Calcium 8.4 L 7.9 L (8.7-10.3) mg/dL Assessment and Plan Assessment: Acute exacerbation of chronic CHF with increased congestion and development of a left-sided pleural effusion, currently being diuresed with IV Bumex Acute hypoxic respiratory failure currently on 3 L of oxygen by nasal cannula Chronic CHF with preserved LV function. The patient is concentric LVH with diastolic heart failure and valvular heart disease Moderate degree of mitral regurgitation Concentric LVH, moderately severe Chronic stage IV kidney disease, with a component of an acute kidney injury probably related to diuresis Anemia of chronic disease Hypertension Coronary artery disease with previous bypass surgery and aortic valve replacement Diabetes mellitus type 2 Hyperlipidemia History of complete AV block and the patient is a pacemaker in place Plan: The patient was seen and evaluated Labs and medications reviewed The patient remains in a negative balance Stable and on 3 L nasal cannula Titrate the FiO2 as tolerated The patient is anxious to go home No plans for thoracentesis this admission I have personally seen and examined the patient, performed the documentation and the assessment and plan as written. Number of minutes spent on the visit: 10.
[2023-09-13 13:46] VITALS: BMI 15.5
--- NOTE | 2023-09-13 15:05 | P.PN ---
Subjective Patient is seen in follow-up for acute kidney injury on chronic kidney disease. Patient has chronic kidney disease stage IV with baseline creatinine 2.3-2.5. Renal function slightly improved. She is on IV Bumex. Urine output documented at 600 mL today. Vital signs are stable. General: No acute distress. HEENT: Head exam is unremarkable. On nasal cannula. LUNGS: Notable rhonchi or wheezes. HEART: Rate and Rhythm are regular. ABDOMEN: Nontender. EXTREMITITES: 1+ edema. Objective - Vital Signs Vital signs: Vital Signs Temp 97.7 F 09/13/23 13:41 Pulse 60 09/13/23 13:41 Resp 17 09/13/23 13:41 BP 137/58 09/13/23 13:41 Pulse Ox 97 09/13/23 13:41 FiO2 Intake & Output 09/12/23 09/13/23 09/13/23 18:59 06:59 18:59 Output Total 600 Balance -600 Weight 45 kg 45 kg Output: Urine 600 Other: Voiding Method Indwelling Catheter Indwelling Catheter External Catheter - Labs CBC & Chem 7: 09/11/23 06:08 09/13/23 08:14 Labs: Abnormal Lab Results - Last 24 Hours (Table) 09/13/23 Range/Units 08:14 Sodium 135 L (137-145) mmol/L BUN 84 H (7-17) mg/dL Creatinine 3.02 H (0.52-1.04) mg/dL Calcium 7.9 L (8.4-10.2) mg/dL Assessment and Plan Plan: Assessment: 1. Chronic kidney disease stage IV secondary to diabetic kidney disease. Baseline creatinine 2.3-2.5. Trace protein on UA. Ultrasound showed atrophic right kidney. Left kidney not visualized. 2. Acute hypoxic respiratory failure. 3. Volume overload. On IV diuretics. Improved. 4. Acute on chronic diastolic CHF and mild to moderate mitral regurgitation and pulmonary hypertension. 5. Anemia of chronic kidney disease. Mild iron deficiency noted. 6. Hypertension with chronic kidney disease. Uncontrolled. 7. Diabetes mellitus. 8. Acute kidney injury secondary to ATN secondary to hypotension cardiorenal syndrome. Creatinine peaked at 3.3 this admission and is 3.02 today. Plan: Maintain IV Bumex. Low-salt diet. Avoid nephrotoxins. Continue to monitor renal function and urine output. Strict I's and O's. Hold midodrine for systolic blood pressure greater than 110.
--- NOTE | 2023-09-13 15:57 | P.PN ---
Subjective Progress Note Date: 09/13/23 Hospital Course: 83-year-old woman with medical history of chronic kidney disease stage IV, complete heart block status post pacemaker, diabetes type 2, hypertension, hyperlipidemia, CAD status post CABG presented for evaluation of dyspnea. In the emergency room, patient was afebrile, 122/74, heart rate 71, 98% on 2 L of nasal cannula. CBC was remarkable for hemoglobin of 9.7. This metabolic panel remarkable for BUN of 63, creatinine 2.54. Liver function test showed mildly elevated alkaline phosphatase at 136, total protein of 5.9, albumin of 2.9. BNP was 8200. Troponin was less than 0.012. Coags are unremarkable. Chest x-ray showed a sided pleural effusion with increased reticular opacities consistent with fluid overload. EKG demonstrated ventricular paced rhythm versus atrial paced rhythm. Patient was admitted to the hospital with plan for diuresis with both pulmonary and nephrology consultation. Echocardiogram reviewed 09/08: Preserved ejection fraction of 50-55%, severely increased left atrial diameter mild mitral stenosis, moderate MR, atypical septal motion with moderate concentric LVH, and mild to moderate pulmonary hypertension. Currently on IV diuretics. Subjective: She is seen and examined at bedside. Respiratory function slightly improved, not on home oxygen. Ordoñez catheter in place. Pertinent positives and negatives as discussed above, a complete review of systems was performed and all other systems are negative. Vitals Signs Reviewed. General: nontoxic, no distress, appears at stated age Derm: warm, dry Head: atraumatic, normocephalic, symmetric Eyes: EOMI, no lid lag, anicteric sclera Mouth: no lip lesion, mucus membranes moist Cardiovascular: S1S2 reg, no murmur Lungs: Bilateral rales, worse on left , no accessory muscle use Abdominal: soft, nontender to palpation, no guarding, no appreciable organomegaly Ext: no gross muscle atrophy, 2+ pitting edema, no contractures Neuro: CN II-XI grossly intact, no focal neuro deficits Psych: Alert, oriented, appropriate affect Data Reviewed Today: Pertinent Labs: Creatinine 3.02, magnesium 1.9, glucose 75-105 Imaging: No new imaging Assessment and Plan: Acute hypoxemic respiratory failure Acute diastolic heart failure Left pleural effusion -Had discussion with nephrology, continue IV Bumex 2 mg twice a day, likely switch to oral tomorrow -Magnesium and BMP pending, will be reviewed when available -Continue midodrine 5mg AC-TID -Pulmonology note reviewed, continue diuretics -Wean oxygen -Ins and outs and daily weights OPAL on CKD IV -monitor urine output -avoid nephrotoxic meds -nephrology following -Previously discussed with patient and nephew - patient is okay with dialysis on a temporary basis but not custodial. -Holding antihypertensives CAD s/p CABG -resume aspirin , statin Anemia of chronic disease Hypertension DM Type II -Home medications reviewed and reconciled -accuchecks and aspart SSI Debility, wheelchair-bound Patient willing to see outpatient palliative DVT ppx: Subcu heparin Code status: Full code Anticipated discharge place: Home with home care Anticipated discharge time: Likely Monday Objective - Vital Signs Vital signs: Vital Signs Temp 97.7 F 09/13/23 13:41 Pulse 60 09/13/23 13:41 Resp 17 09/13/23 13:41 BP 137/58 09/13/23 13:41 Pulse Ox 97 09/13/23 13:41 FiO2 Intake & Output 09/12/23 09/13/23 09/13/23 18:59 06:59 18:59 Output Total 600 Balance -600 Weight 45 kg 45 kg Output: Urine 600 Other: Voiding Method Indwelling Catheter Indwelling Catheter External Catheter - Labs CBC & Chem 7: 09/11/23 06:08 09/13/23 08:14 Labs: Abnormal Lab Results - Last 24 Hours (Table) 09/13/23 Range/Units 08:14 Sodium 135 L (137-145) mmol/L BUN 84 H (7-17) mg/dL Creatinine 3.02 H (0.52-1.04) mg/dL Calcium 7.9 L (8.4-10.2) mg/dL
[2023-09-13 16:20] LABS: Glucose,Whole Blood 115 mg/dL (70-110)
[2023-09-13 19:46] LABS: Glucose,Whole Blood 125 mg/dL (70-110)
[2023-09-13] MEDS: ATORVASTATIN 10 MG TAB PO SCH (20:06)
[2023-09-14 05:53] LABS: Glucose,Whole Blood 98 mg/dL (70-110)
[2023-09-14] MEDS: INSULIN ASPART (NovoLOG) 100 UNIT/ML VIAL SQ SCH ×4 (05:55→20:49)
[2023-09-14] MEDS: MIDODRINE 5 MG TAB PO SCH ×3 (06:25→17:19)
[2023-09-14 08:51] LABS: African American GFR (CKD) 16 (>60 ml/min/1.73 sqM); Anion Gap 8 mmol/L; Blood Urea Nitrogen 83 mg/dL (7-17); Calcium 8.2 mg/dL (8.4-10.2); Carbon Dioxide 24 mmol/L (22-30); Chloride 102 mmol/L (98-107); Glucose 89 mg/dL (74-99); Magnesium 1.9 mg/dL (1.6-2.3); Non-African American GFR(CKD) 14 (>60 ml/min/1.73 sqM); Potassium 4.9 mmol/L (3.5-5.1); Sodium 134 mmol/L (137-145)
[2023-09-14] MEDS: HEPARIN SODIUM,PORCINE 5,000 UNIT/ML 1 ML VIAL SQ SCH ×3 (09:20→23:35)
[2023-09-14] MEDS: ASPIRIN 81 MG PO SCH (09:20)
[2023-09-14] MEDS: BUMETANIDE 0.25 MG/ML 4 ML VIAL IVP SCH (09:21)
--- NOTE | 2023-09-14 11:31 | P.PN ---
Subjective Progress Note Date: 09/14/23 83-year-old female patient hospitalized for worsening shortness of breath. The patient has been having shortness of breath for approximately one week. She is essentially sedentary. She is bedridden. She has chronic difficulty with mobility and ambulation. She has some orthopnea. She has also some proximal nocturnal dyspnea. No fever. No chills. No cough or sputum production. No chest tightness or wheezing. The patient came into the hospital and the patient had a white cell count of 6.3 with a hemoglobin of 9.7. The patient also had a platelet count of 215. Electrolytes were essentially within normal limits. The BUN was 63 with a creatinine of 2.5 and the patient is known to have chronic stage IV kidney disease. The proBNP level was 8200 and the troponins were negative. The chest x-ray showed smaller lung volumes. A pacemaker in the left anterior chest. A small left-sided pleural effusion along with pulmonary vessel congestion. Echo was done and the patient has a systolic function that has been preserved. The patient has an ejection fraction of 50-55%. She has a small l eft ventricle cavity, moderate left ventricular hypertrophy/concentric LVH. Mild RV dilatation of my pulmonary hypertension. She has severely increased left atrial diameter. She has moderate mitral calcification and mild mitral stenosis and central mitral stenosis with mitral calcification and moderate degree of regurgitation. The patient also has moderate aortic stenosis with a peak gradient of 12 mmHg. No evidence of any pericardial effusion. At this point in time, the patient is on 2 L of Oxymizer nasal cannula with a pulse ox of 98%. She is afebrile. She was started on Lasix and the patient is currently on 40 negative IV every 12 hours. She is producing adequate amount of urine output at this point in time. No pleurisy. No hemoptysis. No other new complaints. She has increased lower extremity edema. The patient is known to have CAD, previous bypass surgery, previous aortic valve replacement, diabetes mellitus, hypertension, hyperlipidemia and chronic stage IV kidney disease and she has a pacemaker for complete AV block. On 09/08/2023, the patient is essentially the same. Still has edema lower extremity bilaterally. Remains on Lasix 40 mg IV 12 hours. She did not 3-year-old female patient who came in with signs of CHF. She is extensively debilitated and she is bedridden. The delivery cigars at 7.3 with hemoglobin of 8.4. BUN is at 61 with a creatinine of 3.0. Serum bicarb is at 21. She remains on oxygen at 3 L with a pulse ox of 99%. No cough. No sputum production. No chest tightness. No wheezing. As mentioned, the chest x-ray showed CHF with a left-sided pleural effusion. The EKG shows V pacing. Her echocardiogram shows a preserved LV function, diastolic failure with with moderate degree of mitral regurgitation and pulmonary hypertension. On 09/09/2023, the patient is being seen for a follow-up. She is resting comfortably in bed. She is being diuresed with IV Lasix. Repeat chest x-ray was done that showed a persistent left-sided pleural effusion. She is feeling lethargic and her blood pressure is slightly on the lower side on today's evaluation. Based on that, the antihypertensive medication placed on hold and the patient was started on midodrine 5 mg by mouth 3 times a day. The most recent BP is 98/58. She is on 2 L of oxygen by nasal cannula with pulse ox of 99%. She is afebrile. She is in a negative fluid balance patient remains on Lasix 40 mg IV every 24 hours. The BUN today is at 63 with a creatinine of 3.1. Potassium levels at 5.4. Sodium is 136. Hemoglobin is at 9.5. The white cell count at 6.8. 09/10/2023, the patient is lethargic and sleepy, no worsening in rest or status. She remains on Bumex 2 mg IV every 12 hours. The chest x-ray from yesterday showed a stable except pleural effusion. There is also CHF and increased vessel markings. Ultrasound Doppler of the lower extremity shows no evidence of any DVT. The patient is currently on 2 L of oxygen by nasal cannula with a pulse ox of 99%. She has diastolic heart failure with moderate MR and mild mitral stenosis and moderate degree of pulmonary hypertension. Creatinine is stable at 3.3 and a BUN is at 67. Sodium levels of 134 and a white cell count is at 7.7 with a hemoglobin of 9.1. The patient is seen today 09/11/2023 in follow-up on the regular medical floor. She is currently awake and alert. Breathing a bit easier today compared to yesterday. Maintaining good O2 saturation in the upper 90s on 2 L nasal cannula. She's afebrile. Hemodynamically stable. Chest x-ray continues to show blunting of the left costophrenic angle not much improved compared to previous. Right perihilar haziness. White count 8.2. Hemoglobin 9.0. Platelets 191. Sodium 136. Potassium 5.2. Bicarb 23. BUN 72. Creatinine 3.3. Glucose 89. She is continued on Bumex 2 mg IV push twice daily. Heparin for DVT prophylaxis. The patient is seen today 09/12/2023 in follow-up on the regular medical floor. She is resting comfortably in bed. Awake and alert in no acute distress. Breathing easier today compared to yesterday. She is currently in a -1 L balance. She is maintaining O2 saturation 90s on 3 L/m per nasal cannula. U ltrasound of the chest revealed a 8.1 cm pocket on the right and a 9.9 cm pocket on the left. Sodium 135. Potassium 4.8. Bicarb 22. BUN 76. Creatinine 3.3. Glucose 78. She is continued on Bumex 2 mg IVP twice daily. Heparin for DVT prophylaxis. The patient is seen today 09/13/2023 in follow-up on the regular medical floor. She is sitting up in bed. Awake and alert in no acute distress. She is maintaining good O2 saturations in the upper 90s on 3 L/m per nasal cannula. She denies any worsening shortness of breath, cough or congestion. Sodium 135. Potassium 4.6. Bicarb 22. BUN 84. Creatinine 3.02. Glucose 80. She is continued on Bumex 2 mg IV P twice daily. Heparin for DVT prophylaxis. Ordoñez catheter remains in place with 600 ML's output thus far. The patient is seen today 09/14/2023 in follow-up on the regular medical floor. She remains awake and alert in no acute distress. She denies any worsening shortness of breath, cough or congestion. She is anxious to go home. Taking O2 saturations in the 90s on room air. Afebrile. Sodium 134. Potassium 4.9. Bicarb 24. BUN 83. Creatinine 2.90. Glucose 89. She remains on IV diuretics. Remains in a negative balance. Heparin for DVT prophylaxis. Objective - Vital Signs Vital signs: Vital Signs Temp 97.5 F L 09/14/23 07:55 Pulse 60 09/14/23 09:33 Resp 18 09/14/23 09:33 BP 168/70 09/14/23 09:33 Pulse Ox 93 L 09/14/23 09:33 FiO2 Intake & Output 09/13/23 09/14/23 09/14/23 18:59 06:59 18:59 Output Total 700 800 Balance -700 -800 Weight 45 kg 40 kg Output: Urine 700 800 Other: Voiding Method External Catheter Indwelling Catheter # Bowel Movements 1 - Exam GENERAL EXAM: Alert, frail 83-year-old female, resting in bed, on room air, in no apparent distress. HEAD: Normocephalic. EYES: Normal reaction of pupils, equal size. NOSE: Clear with pink turbinates. THROAT: No erythema or exudates. NECK: No masses, no JVD. CHEST: No chest wall deformity. LUNGS: Equal air entry with crackles, diminished in the left lung base. CVS: S1 and S2 normal with no audible murmur, regular rhythm. ABDOMEN: No hepatosplenomegaly, normal bowel sounds, no guarding or rigidity. SPINE: No scoliosis or deformity SKIN: No rashes CENTRAL NERVOUS SYSTEM: No focal deficits, tone is normal in all 4 extremities. EXTREMITIES: There is no peripheral edema. No clubbing, no cyanosis. Peripheral pulses are intact. - Labs CBC & Chem 7: 09/11/23 06:08 09/14/23 07:29 Labs: Abnormal Lab Results - Last 24 Hours (Table) 09/13/23 09/13/23 09/14/23 Range/Units 16:18 19:45 07:29 Sodium 134 L (137-145) mmol/L BUN 83 H (7-17) mg/dL Creatinine 2.90 H (0.52-1.04) mg/dL POC Glucose (mg/dL) 115 H 125 H (70-110) mg/dL Calcium 8.2 L (8.4-10.2) mg/dL Assessment and Plan Assessment: Acute exacerbation of chronic CHF with increased congestion and development of a left-sided pleural effusion, currently being diuresed with IV Bumex Acute hypoxic respiratory failure currently on 3 L of oxygen by nasal cannula Chronic CHF with preserved LV function. The patient is concentric LVH with diastolic heart failure and valvular heart disease Moderate degree of mitral regurgitation Concentric LVH, moderately severe Chronic stage IV kidney disease, with a component of an acute kidney injury probably related to diuresis Anemia of chronic disease Hypertension Coronary artery disease with previous bypass surgery and aortic valve replacement Diabetes mellitus type 2 Hyperlipidemia History of complete AV block and the patient is a pacemaker in place Plan: The patient was seen and evaluated Labs and medications reviewed The patient remains in a negative balance Stable and on room air The patient is anxious to go home No plans for thoracentesis this admission I have personally seen and examined the patient, performed the documentation and the assessment and plan as written. Number of minutes spent on the visit: 10.
[2023-09-14 12:21] LABS: Glucose,Whole Blood 103 mg/dL (70-110)
[2023-09-14] MEDS ORDERED: ONDANSETRON 4 MG/2 ML VIAL IVP PRN (12:34)
--- NOTE | 2023-09-14 13:27 | P.PN ---
Subjective Progress Note Date: 09/14/23 Hospital Course: 83-year-old woman with medical history of chronic kidney disease stage IV, com plete heart block status post pacemaker, diabetes type 2, hypertension, hyperlipidemia, CAD status post CABG presented for evaluation of dyspnea. In the emergency room, patient was afebrile, 122/74, heart rate 71, 98% on 2 L of nasal cannula. CBC was remarkable for hemoglobin of 9.7. This metabolic panel remarkable for BUN of 63, creatinine 2.54. Liver function test showed mildly elevated alkaline phosphatase at 136, total protein of 5.9, albumin of 2.9. BNP was 8200. Troponin was less than 0.012. Coags are unremarkable. Chest x-ray showed a sided pleural effusion with increased reticular opacities consistent with fluid overload. EKG demonstrated ventricular paced rhythm versus atrial paced rhythm. Patient was admitted to the hospital with plan for diuresis with both pulmonary and nephrology consultation. Echocardiogram reviewed 09/08: Preserved ejection fraction of 50-55%, severely increased left atrial diameter mild mitral stenosis, moderate MR, atypical septal motion with moderate concentric LVH, and mild to moderate pulmonary hypertension. Renal function improving. Now on room air. IV diuretics changed to oral diuretics. Subjective: She is seen and examined at bedside. Respiratory function improved. Continues to have Ordoñez catheter in place. Pertinent positives and negatives as discussed above, a complete review of systems was performed and all other systems are negative. Vitals Signs Reviewed. General: nontoxic, no distress, appears at stated age Derm: warm, dry Head: atraumatic, normocephalic, symmetric Eyes: EOMI, no lid lag, anicteric sclera Mouth: no lip lesion, mucus membranes moist Cardiovascular: S1S2 reg, no murmur Lungs: Bilateral rales, worse on left , no accessory muscle use Abdominal: soft, nontender to palpation, no guarding, no appreciable organomegaly Ext: no gross muscle atrophy, 2+ pitting edema, no contractures Neuro: CN II-XI grossly intact, no focal neuro deficits Psych: Alert, oriented, appropriate affect Data Reviewed Today: Pertinent Labs: Creatinine 2.9, magnesium 1.9, blood sugars range between 89-125 Imaging: No new imaging Assessment and Plan: Acute hypoxemic respiratory failure, resolved Acute diastolic heart failure Left pleural effusion -Nephrology following -IV Bumex 2 mg twice a day changed to oral Bumex -Continue midodrine 5mg AC-TID -Pulmonology note reviewed, continue diuretics -Ins and outs and daily weights OPAL on CKD IV , resolving -monitor urine output -avoid nephrotoxic meds -nephrology following -Holding antihypertensives CAD s/p CABG -resume aspirin , statin Anemia of chronic disease Hypertension DM Type II -Home medications reviewed and reconciled -accuchecks and aspart SSI Debility, wheelchair-bound -Patient will need a hospital bed at home Patient willing to see outpatient palliative DVT ppx: Subcu heparin Code status: Full code Anticipated discharge place: Home with home care Anticipated discharge time: Likely Monday Objective - Vital Signs Vital signs: Vital Signs Temp 97.5 F L 09/14/23 07:55 Pulse 60 09/14/23 09:33 Resp 18 09/14/23 09:33 BP 168/70 09/14/23 09:33 Pulse Ox 93 L 09/14/23 09:33 FiO2 Intake & Output 09/13/23 09/14/23 09/14/23 18:59 06:59 18:59 Output Total 700 1325 Balance -700 -1325 Weight 45 kg 40 kg Output: Urine 700 1325 Other: Voiding Method External Catheter Indwelling Catheter # Bowel Movements 1 - Labs CBC & Chem 7: 09/11/23 06:08 09/14/23 07:29 Labs: Abnormal Lab Results - Last 24 Hours (Table) 09/13/23 09/13/23 09/14/23 Range/Units 16:18 19:45 07:29 Sodium 134 L (137-145) mmol/L BUN 83 H (7-17) mg/dL Creatinine 2.90 H (0.52-1.04) mg/dL POC Glucose (mg/dL) 115 H 125 H (70-110) mg/dL Calcium 8.2 L (8.4-10.2) mg/dL
--- NOTE | 2023-09-14 13:29 | P.PN ---
Subjective Progress Note Date: 09/14/23 Follow-up for acute on chronic kidney disease. Stage IV chronic kidney disease with a baseline creatinine of 2.3-2.5 MG per DL. Urine output of 1300 ML's in the last 24 hours. Objective - Vital Signs Vital signs: Vital Signs Temp 97.5 F L 09/14/23 07:55 Pulse 60 09/14/23 09:33 Resp 18 09/14/23 09:33 BP 168/70 09/14/23 09:33 Pulse Ox 93 L 09/14/23 09:33 FiO2 Intake & Output 09/13/23 09/14/23 09/14/23 18:59 06:59 18:59 Output Total 700 1325 Balance -700 -1325 Weight 45 kg 40 kg Output: Urine 700 1325 Other: Voiding Method External Catheter Indwelling Catheter # Bowel Movements 1 - Exam No acute distress S1-S2 heard Decreased breath sounds Edema - Labs CBC & Chem 7: 09/11/23 06:08 09/14/23 07:29 Labs: Abnormal Lab Results - Last 24 Hours (Table) 09/13/23 09/13/23 09/14/23 Range/Units 16:18 19:45 07:29 Sodium 134 L (137-145) mmol/L BUN 83 H (7-17) mg/dL Creatinine 2.90 H (0.52-1.04) mg/dL POC Glucose (mg/dL) 115 H 125 H (70-110) mg/dL Calcium 8.2 L (8.4-10.2) mg/dL Assessment and Plan Assessment: #1 acute kidney injury suspect hemodynamics with low blood pressures. -Baseline creatinine 2.3-2.5 MG per DL. -Urine analysis trace protein -Renal ultrasound atrophic right kidney. #2 acute hypoxic respiratory failure #3 volume overload #4 diastolic CHF with pulmonary hypertension Plan: #1 hemodynamic stable. Renal function is high but stable. #2 agree with Bumex 2 mg oral twice a day. #3 avoid nephrotoxic agents and hypotensive episodes. #4 no acute indication for renal replacement therapy at this time.
[2023-09-14 16:53] LABS: Glucose,Whole Blood 174 mg/dL (70-110)
[2023-09-14 20:20] LABS: Glucose,Whole Blood 101 mg/dL (70-110)
[2023-09-14] MEDS: BUMETANIDE 1 MG TAB PO SCH (20:46)
[2023-09-14] MEDS: ATORVASTATIN 10 MG TAB PO SCH (20:46)
[2023-09-15 06:19] LABS: Glucose,Whole Blood 91 mg/dL (70-110)
[2023-09-15] MEDS: INSULIN ASPART (NovoLOG) 100 UNIT/ML VIAL SQ SCH ×2 (06:24→12:23)
[2023-09-15] MEDS: MIDODRINE 5 MG TAB PO SCH ×2 (06:45→12:40)
[2023-09-15 07:58] LABS: African American GFR (CKD) 17 (>60 ml/min/1.73 sqM); Anion Gap 9 mmol/L; Blood Urea Nitrogen 84 mg/dL (7-17); Calcium 8.2 mg/dL (8.4-10.2); Carbon Dioxide 25 mmol/L (22-30); Chloride 101 mmol/L (98-107); Glucose 80 mg/dL (74-99); Non-African American GFR(CKD) 15 (>60 ml/min/1.73 sqM); Potassium 4.8 mmol/L (3.5-5.1); Sodium 135 mmol/L (137-145)
[2023-09-15] MEDS: HEPARIN SODIUM,PORCINE 5,000 UNIT/ML 1 ML VIAL SQ SCH (08:39)
[2023-09-15] MEDS: ASPIRIN 81 MG PO SCH (08:40)
[2023-09-15] MEDS: BUMETANIDE 1 MG TAB PO SCH (08:40)
[2023-09-15 11:27] LABS: Glucose,Whole Blood 105 mg/dL (70-110)
--- NOTE | 2023-09-15 12:01 | P.DS ---
Providers Date of admission: 09/07/23 12:03 Expected date of discharge: 09/15/23 Attending physician: Zuri Garcia MD Consults: 09/07/23 00:23 Consult Physician Urgent Consulting Provider: Ronnell Fowler Consult Reason/Comments: Pleural effusion, possible thoracentesis Do you want consulting provider notified?: Yes 09/07/23 08:34 Consult Physician Routine Consulting Provider: Natali Barton Consult Reason/Comments: CKD IV, patient requires nephrology approval of lasix Do you want consulting provider notified?: Yes Primary care physician: [facility] Hospital Course: Discharge Diagnosis: Acute hypoxemic respiratory failure Acute diastolic heart failure Left pleural effusion OPAL on CKD IV Type 2 diabetes, A1c 5.4 CAD s/p CABG Anemia of chronic disease Hypertension Debility, wheelchair-bound Hospital Course: 83-year-old woman with medical history of chronic kidney disease stage IV, complete heart block status post pacemaker, diabetes type 2, hypertension, hyperlipidemia, CAD status post CABG presented for evaluation of dyspnea. In the emergency room, patient was afebrile, 122/74, heart rate 71, 98% on 2 L of nasal cannula. CBC was remarkable for hemoglobin of 9.7. This metabolic panel remarkable for BUN of 63, creatinine 2.54. Liver function test showed mildly elevated alkaline phosphatase at 136, total protein of 5.9, albumin of 2.9. BNP was 8200. Troponin was less than 0.012. Coags are unremarkable. Chest x-ray showed a sided pleural effusion with increased reticular opacities consistent with fluid overload. EKG demonstrated ventricular paced rhythm versus atrial paced rhythm. Patient was admitted to the hospital with plan for diuresis with both pulmonary and nephrology consultation. Echocardiogram showed Preserved ejection fraction of 50-55%, severely increased left atrial diameter mild mitral stenosis, moderate MR, atypical septal motion with moderate concentric LVH, and mild to moderate pulmonary hypertension. Renal function continued to improve on diuretics. She is still requiring some supplemental oxygen. Due to acute diastolic heart failure, and requiring oxygen, patient needs to have the head of the bed elevated greater than 30. She will benefit from a hospital bed at home. Due to significant urinary retention, patient going home with a Ordoñez catheter. Had lengthy discussion with family and patient with regards to pursuing palliative care/hospice care once discharged. They will follow-up with their PCP for discussions with regards to end-of-life care. She will also follow-up with her funnel setter. Patient seen and examined at bedside. Vital signs reviewed and stable. General: nontoxic, no distress, appears at stated age, Ordoñez catheter in place Derm: warm, dry Head: atraumatic, normocephalic, symmetric Eyes: EOMI, no lid lag, anicteric sclera Mouth: no lip lesion, mucus membranes moist Cardiovascular: S1S2 reg, no murmur Lungs: Bilateral rales, worse on left , no accessory muscle use, supplemental oxygen Abdominal: soft, nontender to palpation, no guarding, no appreciable organomegaly Ext: no gross muscle atrophy, trace peripheral pitting edema, no contractures Neuro: CN II-XI grossly intact, no focal neuro deficits Psych: Alert, oriented, appropriate affect A total of 33 minutes of time were spent preparing this complex discharge summary. Patient was discharged on 09/15/23 at 11:56. Patient Condition at Discharge: Stable Plan - Discharge Summary Discharge Rx Participant: Yes New Discharge Prescriptions: New Bumetanide [BUMEX] 2 mg PO BID #90 tab Midodrine [ProAmatine] 5 mg PO AC-TID #60 tab Continue Aspirin [Adult Low Dose Aspirin EC] 81 mg PO DAILY Cyanocobalamin (Vitamin B-12) [Vitamin B-12] 1,000 mcg PO Q2D Turmeric Root Extract [Turmeric] 500 mg PO DAILY Ubidecarenone [Co Q-10] 30 mg PO HS Simvastatin [Zocor] 20 mg PO HS Cholecalciferol [Vitamin D3 (25 Mcg = 1000 Iu)] 25 mcg PO DAILY Discontinued Metoprolol Succinate [Toprol XL] 200 mg PO DAILY Losartan Potassium [Cozaar] 50 mg PO DAILY Amoxic-Pot Clav 875-125Mg [Augmentin 875-125] 1 tab PO BID amLODIPine [Norvasc] 5 mg PO BID sitaGLIPtin PHOS/metFORMIN HCL [Janumet 50-1,000 mg Tablet] 1 tab PO DAILY Doxazosin [Cardura] 1 mg PO BID Discharge Medication List Aspirin [Adult Low Dose Aspirin EC] 81 mg PO DAILY 08/22/22 [History] Simvastatin [Zocor] 20 mg PO HS 08/22/22 [History] Cholecalciferol [Vitamin D3 (25 Mcg = 1000 Iu)] 25 mcg PO DAILY 02/28/23 [History] Cyanocobalamin (Vitamin B-12) [Vitamin B-12] 1,000 mcg PO Q2D 02/28/23 [History] Turmeric Root Extract [Turmeric] 500 mg PO DAILY 02/28/23 [History] Ubidecarenone [Co Q-10] 30 mg PO HS 09/06/23 [History] Bumetanide [BUMEX] 2 mg PO BID #90 tab 09/15/23 [Rx] Midodrine [ProAmatine] 5 mg PO AC-TID #60 tab 09/15/23 [Rx] Follow up Appointment(s)/Referral(s): Musa Feliciano MD [Primary Care Provider] - 1-2 days [facility] [NON-STAFF] - 1 Week ([facility] will call you to arrange a visit. ) Chalo Magdaleno DO [STAFF PHYSICIAN] - 1 Week Patient Instructions/Handouts: Chronic Kidney Disease (DC), Chronic Urinary Retention in Women (DC), Pleural Effusion (DC) Activity/Diet/Wound Care/Special Instructions: Please see her PCP as well as funnel setter. You will need follow-up with your PCP with regards to palliative care options. Consider discontinuing the Ordoñez catheter as advised by her PCP, you may need to see urologist. Discharge Disposition: HOME WITH HOME HEALTH SERVICES
--- NOTE | 2023-09-15 12:26 | P.PN ---
Subjective Progress Note Date: 09/15/23 Follow-up for acute on chronic kidney disease. Stage IV chronic kidney disease with a baseline creatinine of 2.3-2.5 MG per DL. Urine output of 2800 ML's in the last 24 hours. Objective - Vital Signs Vital signs: Vital Signs Temp 97.9 F 09/15/23 06:56 Pulse 55 L 09/15/23 11:10 Resp 17 09/15/23 06:56 BP 145/73 09/15/23 06:56 Pulse Ox 94 L 09/15/23 11:10 FiO2 Intake & Output 09/14/23 09/15/23 09/15/23 18:59 06:59 18:59 Output Total 1900 900 Balance -1900 -900 Weight 37 kg Output: Urine 1900 900 Other: Voiding Method Indwelling Catheter - Exam No acute distress S1-S2 heard Decreased breath sounds Edema - Labs CBC & Chem 7: 09/11/23 06:08 09/15/23 06:44 Labs: Abnormal Lab Results - Last 24 Hours (Table) 09/14/23 09/15/23 Range/Units 16:53 06:44 Sodium 135 L (137-145) mmol/L BUN 84 H (7-17) mg/dL Creatinine 2.83 H (0.52-1.04) mg/dL POC Glucose (mg/dL) 174 H (70-110) mg/dL Calcium 8.2 L (8.4-10.2) mg/dL Assessment and Plan Assessment: #1 acute kidney injury suspect hemodynamics with low blood pressures. -Baseline creatinine 2.3-2.5 MG per DL. -Urine analysis trace protein -Renal ultrasound atrophic right kidney. #2 acute hypoxic respiratory failure #3 volume overload #4 diastolic CHF with pulmonary hypertension Plan: #1 hemodynamic stable. Renal function is high but stable. #2 agree with Bumex 2 mg oral twice a day. #3 avoid nephrotoxic agents and hypotensive episodes. #4 no acute indication for renal replacement therapy at this time.
--- NOTE | 2023-09-15 13:53 | P.PN ---
Subjective Progress Note Date: 09/15/23 83-year-old female patient hospitalized for worsening shortness of breath. The patient has been having shortness of breath for approximately one week. She is essentially sedentary. She is bedridden. She has chronic difficulty with mobility and ambulation. She has some orthopnea. She has also some proximal nocturnal dyspnea. No fever. No chills. No cough or sputum production. No chest tightness or wheezing. The patient came into the hospital and the patient had a white cell count of 6.3 with a hemoglobin of 9.7. The patient also had a platelet count of 215. Electrolytes were essentially within normal limits. The BUN was 63 with a creatinine of 2.5 and the patient is known to have chronic stage IV kidney disease. The proBNP level was 8200 and the troponins were negative. The chest x-ray showed smaller lung volumes. A pacemaker in the left anterior chest. A small left-sided pleural effusion along with pulmonary vessel congestion. Echo was done and the patient has a systolic function that has been preserved. The patient has an ejection fraction of 50-55%. She has a small l eft ventricle cavity, moderate left ventricular hypertrophy/concentric LVH. Mild RV dilatation of my pulmonary hypertension. She has severely increased left atrial diameter. She has moderate mitral calcification and mild mitral stenosis and central mitral stenosis with mitral calcification and moderate degree of regurgitation. The patient also has moderate aortic stenosis with a peak gradient of 12 mmHg. No evidence of any pericardial effusion. At this point in time, the patient is on 2 L of Oxymizer nasal cannula with a pulse ox of 98%. She is afebrile. She was started on Lasix and the patient is currently on 40 negative IV every 12 hours. She is producing adequate amount of urine output at this point in time. No pleurisy. No hemoptysis. No other new complaints. She has increased lower extremity edema. The patient is known to have CAD, previous bypass surgery, previous aortic valve replacement, diabetes mellitus, hypertension, hyperlipidemia and chronic stage IV kidney disease and she has a pacemaker for complete AV block. On 09/08/2023, the patient is essentially the same. Still has edema lower extremity bilaterally. Remains on Lasix 40 mg IV 12 hours. She did not 3-year-old female patient who came in with signs of CHF. She is extensively debilitated and she is bedridden. The delivery cigars at 7.3 with hemoglobin of 8.4. BUN is at 61 with a creatinine of 3.0. Serum bicarb is at 21. She remains on oxygen at 3 L with a pulse ox of 99%. No cough. No sputum production. No chest tightness. No wheezing. As mentioned, the chest x-ray showed CHF with a left-sided pleural effusion. The EKG shows V pacing. Her echocardiogram shows a preserved LV function, diastolic failure with with moderate degree of mitral regurgitation and pulmonary hypertension. On 09/09/2023, the patient is being seen for a follow-up. She is resting comfortably in bed. She is being diuresed with IV Lasix. Repeat chest x-ray was done that showed a persistent left-sided pleural effusion. She is feeling lethargic and her blood pressure is slightly on the lower side on today's evaluation. Based on that, the antihypertensive medication placed on hold and the patient was started on midodrine 5 mg by mouth 3 times a day. The most recent BP is 98/58. She is on 2 L of oxygen by nasal cannula with pulse ox of 99%. She is afebrile. She is in a negative fluid balance patient remains on Lasix 40 mg IV every 24 hours. The BUN today is at 63 with a creatinine of 3.1. Potassium levels at 5.4. Sodium is 136. Hemoglobin is at 9.5. The white cell count at 6.8. 09/10/2023, the patient is lethargic and sleepy, no worsening in rest or status. She remains on Bumex 2 mg IV every 12 hours. The chest x-ray from yesterday showed a stable except pleural effusion. There is also CHF and increased vessel markings. Ultrasound Doppler of the lower extremity shows no evidence of any DVT. The patient is currently on 2 L of oxygen by nasal cannula with a pulse ox of 99%. She has diastolic heart failure with moderate MR and mild mitral stenosis and moderate degree of pulmonary hypertension. Creatinine is stable at 3.3 and a BUN is at 67. Sodium levels of 134 and a white cell count is at 7.7 with a hemoglobin of 9.1. The patient is seen today 09/11/2023 in follow-up on the regular medical floor. She is currently awake and alert. Breathing a bit easier today compared to yesterday. Maintaining good O2 saturation in the upper 90s on 2 L nasal cannula. She's afebrile. Hemodynamically stable. Chest x-ray continues to show blunting of the left costophrenic angle not much improved compared to previous. Right perihilar haziness. White count 8.2. Hemoglobin 9.0. Platelets 191. Sodium 136. Potassium 5.2. Bicarb 23. BUN 72. Creatinine 3.3. Glucose 89. She is continued on Bumex 2 mg IV push twice daily. Heparin for DVT prophylaxis. The patient is seen today 09/12/2023 in follow-up on the regular medical floor. She is resting comfortably in bed. Awake and alert in no acute distress. Breathing easier today compared to yesterday. She is currently in a -1 L balance. She is maintaining O2 saturation 90s on 3 L/m per nasal cannula. U ltrasound of the chest revealed a 8.1 cm pocket on the right and a 9.9 cm pocket on the left. Sodium 135. Potassium 4.8. Bicarb 22. BUN 76. Creatinine 3.3. Glucose 78. She is continued on Bumex 2 mg IVP twice daily. Heparin for DVT prophylaxis. The patient is seen today 09/13/2023 in follow-up on the regular medical floor. She is sitting up in bed. Awake and alert in no acute distress. She is maintaining good O2 saturations in the upper 90s on 3 L/m per nasal cannula. She denies any worsening shortness of breath, cough or congestion. Sodium 135. Potassium 4.6. Bicarb 22. BUN 84. Creatinine 3.02. Glucose 80. She is continued on Bumex 2 mg IV P twice daily. Heparin for DVT prophylaxis. Ordoñez catheter remains in place with 600 ML's output thus far. The patient is seen today 09/14/2023 in follow-up on the regular medical floor. She remains awake and alert in no acute distress. She denies any worsening shortness of breath, cough or congestion. She is anxious to go home. Taking O2 saturations in the 90s on room air. Afebrile. Sodium 134. Potassium 4.9. Bicarb 24. BUN 83. Creatinine 2.90. Glucose 89. She remains on IV diuretics. Remains in a negative balance. Heparin for DVT prophylaxis. The patient is seen today 09/15/2023 in follow-up on the regular medical floor. She is currently resting comfortably in bed. Awake and alert in no acute distress. Maintaining O2 saturations in the 90s on room air. She is afebrile. Sodium 135. Potassium 4.8. Bicarb 25. BUN 84. Creatinine 2.83. Glucose 80. She is on oral diuretics. Making good urine output up to 2800 ML's in the past 24 hours. Heparin for DVT prophylaxis. Objective - Vital Signs Vital signs: Vital Signs Temp 97.9 F 09/15/23 06:56 Pulse 55 L 09/15/23 11:10 Resp 17 09/15/23 06:56 BP 145/73 09/15/23 06:56 Pulse Ox 94 L 09/15/23 11:10 FiO2 Intake & Output 09/14/23 09/15/23 09/15/23 18:59 06:59 18:59 Output Total 1900 900 Balance -1900 -900 Weight 37 kg Output: Urine 1900 900 Other: Voiding Method Indwelling Catheter Indwelling Catheter - Exam GENERAL EXAM: Alert, frail pleasant 83-year-old female, resting in bed, on room air, in no apparent distress. HEAD: Normocephalic. EYES: Normal reaction of pupils, equal size. NOSE: Clear with pink turbinates. THROAT: No erythema or exudates. NECK: No masses, no JVD. CHEST: No chest wall deformity. LUNGS: Equal air entry with crackles, diminished in the left lung base. CVS: S1 and S2 normal with no audible murmur, regular rhythm. ABDOMEN: No hepatosplenomegaly, normal bowel sounds, no guarding or rigidity. SPINE: Evidence of kyphosis SKIN: No rashes CENTRAL NERVOUS SYSTEM: No focal deficits, tone is normal in all 4 extremities. EXTREMITIES: There is no peripheral edema. No clubbing, no cyanosis. Peripheral pulses are intact. - Labs CBC & Chem 7: 09/11/23 06:08 09/15/23 06:44 Labs: Abnormal Lab Results - Last 24 Hours (Table) 09/14/23 09/15/23 Range/Units 16:53 06:44 Sodium 135 L (137-145) mmol/L BUN 84 H (7-17) mg/dL Creatinine 2.83 H (0.52-1.04) mg/dL POC Glucose (mg/dL) 174 H (70-110) mg/dL Calcium 8.2 L (8.4-10.2) mg/dL Assessment and Plan Assessment: Acute exacerbation of chronic CHF with increased congestion and development of a left-sided pleural effusion, currently being diuresed with Bumex Acute hypoxic respiratory failure currently on 3 L of oxygen by nasal cannula Chronic CHF with preserved LV function. The patient is concentric LVH with diastolic heart failure and valvular heart disease Moderate degree of mitral regurgitation Concentric LVH, moderately severe Chronic stage IV kidney disease, with a component of an acute kidney injury probably related to diuresis Anemia of chronic disease Hypertension Coronary artery disease with previous bypass surgery and aortic valve replacement Diabetes mellitus type 2 Hyperlipidemia History of complete AV block and the patient is a pacemaker in place Plan: The patient was seen and evaluated Labs and medications reviewed The patient remains in a negative balance Stable and on room air Plan is for home with home care I have personally seen and examined the patient, performed the documentation and the assessment and plan as written. Number of minutes spent on the visit: 10.
[2023-09-15 14:29] VITALS: BP 146/69; PULSE 54; RESP 18; TEMP 98.1
== END 2023-09-15 16:21 | disposition home health service (06) | DRG 291 ==
LOC: EC 22:24 → 6NMEDSUR 09-07 01:43 → 4SSUR 09-07 07:25 → OBSVTOIN 09-07 12:03
PROVIDERS: ADMIT Internal Medicine; ATTEND Internal Medicine
DX: I13.0 Hypertensive heart and chronic kidney disease with heart failure and stage 1 through stage 4 chronic kidney disease, or unspecified chronic kidney disease (principal); I50.33 Acute on chronic diastolic (congestive) heart failure; J96.01 Acute respiratory failure with hypoxia; N17.0 Acute kidney failure with tubular necrosis; N18.4 Chronic kidney disease, stage 4 (severe); I44.2 Atrioventricular block, complete; I25.10 Atherosclerotic heart disease of native coronary artery without angina pectoris; T50.2X5A Adverse effect of carbonic-anhydrase inhibitors, benzothiadiazides and other diuretics, initial encounter; D63.1 Anemia in chronic kidney disease; E11.22 Type 2 diabetes mellitus with diabetic chronic kidney disease; D50.9 Iron deficiency anemia, unspecified; E78.5 Hyperlipidemia, unspecified; I08.0 Rheumatic disorders of both mitral and aortic valves; I27.20 Pulmonary hypertension, unspecified; Z74.01 Bed confinement status; Z79.82 Long term (current) use of aspirin; Z79.84 Long term (current) use of oral hypoglycemic drugs; Z79.899 Other long term (current) drug therapy; Z90.710 Acquired absence of both cervix and uterus; Z90.49 Acquired absence of other specified parts of digestive tract; Z95.0 Presence of cardiac pacemaker; Z95.2 Presence of prosthetic heart valve; Z95.1 Presence of aortocoronary bypass graft; Z99.3 Dependence on wheelchair; X58.XXXA Exposure to other specified factors, initial encounter; D63.8 Anemia in other chronic diseases classified elsewhere; Z88.5 Allergy status to narcotic agent; Z88.1 Allergy status to other antibiotic agents
CPT/HCPCS: 36415; 71045; 71046; 76604; 76770; 80048; 80053; 81001; 82728; 83036; 83540; 83550; 83605; 83735; 83880; 84145; 84484; 85025; 85610; 85730; 93005; 93306; 94760; 99285

== ENCOUNTER 2023-11-18 16:56 | Emergency (ER) | payer MEDICARE ==
[2023-11-18 17:33] VITALS: RESP 18; TEMP 97.8
--- NOTE | 2023-11-18 17:56 | ED ---
General Adult HPI - General Chief complaint: Extremity Injury, Upper Stated complaint: Left arm swollen Time Seen by Provider: 11/18/23 17:56 Source: patient Mode of arrival: ambulatory Limitations: no limitations - History of Present Illness Initial comments: 83-year-old female presented to the ED with a chief complaint of left arm swelling. Patient does have a history of chronic swelling bilateral upper extremities however patient notes this morning she noticed a "lump" in her left arm which was painful. States that this is different than her history of swelling. Reports since onset pain has improved. Sent in by her facility to rule out DVT. Of note, patient reports she has not taken her blood pressure medication today. No chest pain or shortness of breath. - Related Data Home Medications Medication Instructions Recorded Confirmed Aspirin [Adult Low Dose Aspirin EC] 81 mg PO DAILY 08/22/22 11/17/23 Simvastatin [Zocor] 20 mg PO HS 08/22/22 11/17/23 Cholecalciferol [Vitamin D3 (25 25 mcg PO DAILY 02/28/23 11/17/23 Mcg = 1000 Iu)] Cyanocobalamin (Vitamin B-12) 1,000 mcg PO Q2D 02/28/23 11/17/23 [Vitamin B-12] Turmeric Root Extract [Turmeric] 500 mg PO DAILY 02/28/23 11/17/23 Ubidecarenone [Co Q-10] 30 mg PO HS 09/06/23 11/17/23 amLODIPine [Norvasc] 5 mg PO DAILY 11/17/23 11/17/23 calcitrioL 0.25 mcg PO WEEKLY 11/17/23 11/17/23 Allergies Allergy/AdvReac Type Severity Reaction Status Date / Time cephalexin Allergy Unknown Verified 11/18/23 17:16 ciprofloxacin [From Cipro] Allergy Unknown Verified 11/18/23 17:16 codeine Allergy Unknown Verified 11/18/23 17:16 Review of Systems ROS Statement: Those systems with pertinent positive or pertinent negative responses have been documented in the HPI. ROS Other: All systems not noted in ROS Statement are negative. Past Medical History Past Medical History: Coronary Artery Disease (CAD), Heart Failure, Diabetes Mellitus, Hyperlipidemia, Hypertension, Renal Disease Additional Past Medical History / Comment(s): pacemaker for complete heart block, AVR History of Any Multi-Drug Resistant Organisms: None Reported Past Surgical History: Appendectomy, Cholecystectomy, Coronary Bypass/CABG, Hysterectomy, Pacemaker, Tonsillectomy Past Anesthesia/Blood Transfusion Reactions: No Reported Reaction Past Psychological History: No Psychological Hx Reported Smoking Status: Never smoker Past Alcohol Use History: None Reported Past Drug Use History: None Reported - Past Family History Father History Unknown: Yes General Exam Limitations: no limitations General appearance: alert Eye exam: Present: normal appearance ENT exam: Present: normal exam Neck exam: Present: normal inspection Respiratory exam: Present: normal lung sounds bilaterally Cardiovascular Exam: Present: regular rate, normal rhythm GI/Abdominal exam: Present: soft Extremities exam: Present: other (Left upper extremity has no evidence of warmth, erythema, edema, or mass. Strength and sensation equal and intact in bilateral upper extremities.) Neurological exam: Present: alert, oriented X3 Skin exam: Present: warm, dry Course Vital Signs 11/18/23 17:10 Temperature 97.8 F Pulse Rate 60 Respiratory 18 Rate Blood Pressure 182/62 O2 Sat by Pulse 95 Oximetry Medical Decision Making - Medical Decision Making Was pt. sent in by a medical professional or institution (Dr. PA, MACHINE OPERATOR, urgent care, hospital, or senior living...) When possible be specific @ -Sent in by her residential home nurse Did you speak to anyone other than the patient for history (EMS, parent, family, police, friend...)? What history was obtained from this source @ -No Did you review nursing and triage notes (agree or disagree)? Why? @ -I reviewed and agree with nursing and triage notes Were old charts reviewed (outside hosp., previous admission, EMS record, old EKG, old radiological studies, urgent care reports/EKG's, senior living records)? Report findings @ -No old charts were reviewed Differential Diagnosis (chest pain, altered mental status, abdominal pain women, abdominal pain men, vaginal bleeding, weakness, fever, dyspnea, syncope, headache, dizziness, GI bleed, back pain, seizure, CVA, palpatations, mental health, musculoskeletal)? @ -DVT, superficial venous thrombosis, phlebitis, cellulitis. This is not meant to be an all inclusive list. EKG interpreted by me (3pts min.). @ -None X-rays interpreted by me (1pt min.). @ -None done CT interpreted by me (1pt min.). @ -None done U/S interpreted by me (1pt. min.). @ -Ultrasound of the left upper extremity shows no evidence of DVT or other acute finding. What testing was considered but not performed or refused? (CT, X-rays, U/S, labs)? Why? @ -None What meds were considered but not given or refused? Why? @ -None Did you discuss the management of the patient with other professionals (professionals i.e. DrJhony, PA, MACHINE OPERATOR, lab, RT, psych nurse, rn social work, crayon molding machine operator, teacher, senior credit officer, case therapist)? Give summary @ -No Was smoking cessation discussed for >3mins.? @ -No Was critical care preformed (if so, how long)? @ -No Were there social determinants of health that impacted care today? How? (Homelessness, low income, unemployed, alcoholism, drug addiction, transportation, low edu. Level, literacy, decrease access to med. care, half-way, rehab)? @ -No Was there de-escalation of care discussed even if they declined (Discuss DNR or withdrawal of care, Hospice)? DNR status @ -No What co-morbidities impacted this encounter? (DM, HTN, Smoking, COPD, CAD, Cancer, CVA, ARF, Chemo, Hep., AIDS, mental health diagnosis, sleep apnea, morbid obesity)? @ -None Was patient admitted / discharged? Hospital course, mention meds given and route, prescriptions, significant lab abnormalities, going to OR and other pertinent info. @ -Discharge 83-year-old female presenting to the ED as instructed by her home nurse to rule out DVT secondary to 1 day history of some swelling and pain left upper extremity. Exam showed no warmth, erythema, edema, or masses. Ultrasound revealed no evidence of DVT. Of note, vital signs showed a blood pressure 170s over 100 systolic while I evaluated the patient. Patient denies having any chest pain, shortness of breath, headache and notes that she has not taken her antihypertensive yet today. Otherwise vital signs stable. At reevaluation, patient reports improvement of the pain and swelling. Patient discharged home in stable condition. Discussed return precautions with patient and family who verbalized agreement. Undiagnosed new problem with uncertain prognosis? @ -No Drug Therapy requiring intensive monitoring for toxicity (Heparin, Nitro, Insulin, Cardizem)? @ -No Were any procedures done? @ -No Diagnosis/symptom? @ -Left upper extremity swelling and pain Acute, or Chronic, or Acute on Chronic? @ -Acute Uncomplicated (without systemic symptoms) or Complicated (systemic symptoms)? @ -Uncomplicated cellulitis patient will be Side effects of treatment? @ -No Exacerbation, Progression, or Severe Exacerbation? @ -No Poses a threat to life or bodily function? How? (Chest pain, [place], [place], pneumonia, PE, COPD, DKA, ARF, appy, cholecystitis, CVA, Diverticulitis, Homicidal, Suicidal, threat to staff... and all critical care pts) @ -No Disposition Clinical Impression: Swelling of left upper extremity Disposition: HOME SELF-CARE Condition: Good Additional Instructions: Please return to the Emergency Department if symptoms worsen or any other concerns. Please follow-up with your primary care provider. Is patient prescribed a controlled substance at d/c from ED?: No Referrals: Musa Feliciano MD [Primary Care Provider] - 1-2 days Time of Disposition: 19:59
--- NOTE | 2023-11-18 19:26 | US ---
EXAMINATION TYPE: US venous doppler duplex UE LT DATE OF EXAM: 11/18/2023 COMPARISON: NONE CLINICAL INDICATION: Female, 83 years old with history of r/o dvt; Left arm pain and edema SIDE PERFORMED: left Left Arm: *Limitations due to limited mobility, patient unable to move arm into adequate position. n o evidence of DVT as visualized IMPRESSION: 1. Left upper extremity ultrasound negative for deep venous thrombosis. 2. Limitation due to patient ability to cooperate
[2023-11-18 20:18] VITALS: BP 171/60; PULSE 62
== END 2023-11-18 20:27 | disposition home or self-care (01) ==
LOC: EC 16:56
DX: M79.89 Other specified soft tissue disorders (principal); I25.10 Atherosclerotic heart disease of native coronary artery without angina pectoris; I11.0 Hypertensive heart disease with heart failure; I50.9 Heart failure, unspecified; E11.9 Type 2 diabetes mellitus without complications; E78.5 Hyperlipidemia, unspecified; Z79.899 Other long term (current) drug therapy; Z79.82 Long term (current) use of aspirin; Z88.5 Allergy status to narcotic agent; Z88.1 Allergy status to other antibiotic agents; Z88.8 Allergy status to other drugs, medicaments and biological substances
CPT/HCPCS: 99283

== ENCOUNTER 2023-11-22 16:01 | Inpatient (IN) | payer MEDICARE ==
--- NOTE | 2023-11-22 17:12 | ED ---
SOB HPI - General Chief Complaint: Shortness of Breath Stated Complaint: VALENTÍN,Increase Edema Time Seen by Provider: 11/22/23 16:15 Source: patient, EMS Mode of arrival: EMS Limitations: no limitations - History of Present Illness Initial Comments: 83-year-old female with past medical history of congestive heart failure who presents emergency department reporting shortness of breath. States that she has been short of breath over the past couple of days. She has had some swelling in her bilateral lower extremities as well as her left upper extremity. She was seen in the emergency department a few days ago and had an ultrasound completed of the left upper extremity. She is not having any shortness of breath at that time. She is not currently on a diuretic due to her chronic kidney disease. She denies any chest pain. No history of DVT or PE. Denies fevers, chills or cough. No other alleviating, precipitating modifying factors - Related Data Home Medications Medication Instructions Recorded Confirmed Aspirin [Adult Low Dose Aspirin EC] 81 mg PO DAILY@1200 08/22/22 12/01/23 Simvastatin [Zocor] 20 mg PO 08/22/22 12/01/23 Cholecalciferol [Vitamin D3 (25 50 mcg PO DAILY@1200 02/28/23 12/01/23 Mcg = 1000 Iu)] Cyanocobalamin (Vitamin B-12) 1,000 mcg PO DAILY@1200 02/28/23 12/01/23 [Vitamin B-12] Turmeric Root Extract [Turmeric] 500 mg PO DAILY@1200 02/28/23 12/01/23 Ubidecarenone [Co Q-10] 30 mg PO 09/06/23 12/01/23 amLODIPine [Norvasc] 5 mg PO 11/17/23 12/01/23 calcitrioL 0.25 mcg PO 11/17/23 12/01/23 Previous Rx's Medication Instructions Recorded Furosemide [Lasix] 40 mg PO DAILY #30 tablet 11/25/23 Allergies Allergy/AdvReac Type Severity Reaction Status Date / Time cephalexin Allergy Unknown Verified 12/01/23 14:49 ciprofloxacin [From Cipro] Allergy Unknown Verified 12/01/23 14:49 codeine Allergy Unknown Verified 12/01/23 14:49 Review of Systems ROS Statement: Those systems with pertinent positive or pertinent negative responses have been documented in the HPI. ROS Other: All systems not noted in ROS Statement are negative. Past Medical History Past Medical History: Coronary Artery Disease (CAD), Heart Failure, Diabetes Mellitus, Hyperlipidemia, Hypertension, Renal Disease Additional Past Medical History / Comment(s): pacemaker for complete heart block, AVR History of Any Multi-Drug Resistant Organisms: None Reported Past Surgical History: Appendectomy, Cholecystectomy, Coronary Bypass/CABG, Hysterectomy, Pacemaker, Tonsillectomy Past Anesthesia/Blood Transfusion Reactions: No Reported Reaction Past Psychological History: No Psychological Hx Reported Smoking Status: Never smoker Past Alcohol Use History: None Reported Past Drug Use History: None Reported - Past Family History Father History Unknown: Yes General Exam Limitations: no limitations General appearance: alert, in no apparent distress Head exam: Present: atraumatic, normocephalic, normal inspection Eye exam: Present: normal appearance, PERRL, EOMI. Absent: scleral icterus, conjunctival injection, periorbital swelling ENT exam: Present: normal exam, mucous membranes moist Neck exam: Present: normal inspection. Absent: tenderness, meningismus, lymphadenopathy Respiratory exam: Present: decreased breath sounds. Absent: respiratory dis tress, wheezes, rales, rhonchi, stridor Cardiovascular Exam: Present: regular rate, normal rhythm, normal heart sounds. Absent: systolic murmur, diastolic murmur, rubs, gallop, clicks GI/Abdominal exam: Present: soft, normal bowel sounds. Absent: distended, tenderness, guarding, rebound, rigid Extremities exam: Present: full ROM, normal capillary refill, pedal edema. Absent: tenderness, joint swelling, calf tenderness Back exam: Present: normal inspection Neurological exam: Present: alert, oriented X3, CN II-XII intact Psychiatric exam: Present: normal affect, normal mood Skin exam: Present: warm, dry, intact, normal color. Absent: rash Course Vital Signs 11/22/23 11/22/23 11/22/23 16:14 16:24 16:28 Temperature 97.4 F L Pulse Rate 61 55 L Respiratory 20 22 22 Rate Blood Pressure 189/63 162/64 O2 Sat by Pulse 100 99 Oximetry 11/22/23 11/22/23 11/22/23 20:00 21:00 23:00 Temperature Pulse Rate 60 60 60 Respiratory 24 22 23 Rate Blood Pressure 156/66 167/65 149/56 O2 Sat by Pulse 99 100 100 Oximetry 11/23/23 11/23/23 11/23/23 02:00 03:00 05:00 Temperature Pulse Rate 60 60 60 Respiratory 22 22 22 Rate Blood Pressure 154/57 166/63 146/55 O2 Sat by Pulse 100 100 100 Oximetry 11/23/23 11/23/23 11/23/23 06:00 07:47 10:59 Temperature 97.5 F L 97.9 F Pulse Rate 60 60 60 Respiratory 21 18 20 Rate Blood Pressure 152/57 150/58 149/53 O2 Sat by Pulse 100 100 100 Oximetry 11/23/23 11/23/23 11/23/23 15:51 18:15 20:00 Temperature 97.9 F Pulse Rate 60 60 60 Respiratory 20 20 Rate Blood Pressure 165/66 155/58 174/63 O2 Sat by Pulse 97 98 98 Oximetry 11/23/23 22:00 Temperature Pulse Rate 60 Respiratory Rate Blood Pressure 156/60 O2 Sat by Pulse 97 Oximetry Medical Decision Making - Medical Decision Making Was pt. sent in by a medical professional or institution (Dr. PA, [employer], urgent care, hospital, or intermediate...) When possible be specific @ -No Did you speak to anyone other than the patient for history (EMS, parent, family, police, friend...)? What history was obtained from this source @ -No Did you review nursing and triage notes (agree or disagree)? Why? @ -I reviewed and agree with nursing and triage notes Were old charts reviewed (outside hosp., previous admission, EMS record, old EKG, old radiological studies, urgent care reports/EKG's, intermediate records)? Report findings @ -No old charts were reviewed Differential Diagnosis (chest pain, altered mental status, abdominal pain women, abdominal pain men, vaginal bleeding, weakness, fever, dyspnea, syncope, headache, dizziness, GI bleed, back pain, seizure, CVA, palpatations, mental health, musculoskeletal)? @ -Differential Dyspnea: Coronary syndrome, arrhythmia, tamponade, asthma, COPD, pulmonary embolism, pneumonia, pneumothorax, pulmonary effusion, anaphylaxis, diabetic ketoacidosis, flailed chest, pulmonary contusion, diaphragmatic rupture, anemia, neuromuscular, this is not meant to be an all-inclusive list. EKG interpreted by me (3pts min.). @ -Yes and demonstrates paced rhythm with a rate of 60. QRS 171. QTc of 472. No acute ST segment elevations or depressions X-rays interpreted by me (1pt min.). @ -Yes and demonstrates pleural effusion CT interpreted by me (1pt min.). @ -None done U/S interpreted by me (1pt. min.). @ -None done What testing was considered but not performed or refused? (CT, X-rays, U/S, labs)? Why? @ -None What meds were considered but not given or refused? Why? @ -None Did you discuss the management of the patient with other professionals (professionals i.e. DrJhony, PA, [employer], lab, RT, psych nurse, social worker school, mold technician, teacher, armor officer, foster care case manager)? Give summary @ -Spoke with admitting physician Dr. Molina Was smoking cessation discussed for >3mins.? @ -No Was critical care preformed (if so, how long)? @ -No Were there social determinants of health that impacted care today? How? (Homelessness, low income, unemployed, alcoholism, drug addiction, transportation, low edu. Level, literacy, decrease access to med. care, fpc, rehab)? @ -No Was there de-escalation of care discussed even if they declined (Discuss DNR or withdrawal of care, Hospice)? DNR status @ -No What co-morbidities impacted this encounter? (DM, HTN, Smoking, COPD, CAD, Cancer, CVA, ARF, Chemo, Hep., AIDS, mental health diagnosis, sleep apnea, morbid obesity)? @ -CHF Was patient admitted / discharged? Hospital course, mention meds given and route, prescriptions, significant lab abnormalities, going to OR and other pertinent info. @ -Admitted. Upon arrival patient was seen and evaluated in room 23. Thorough history and physical exam was performed. IV access was established and laboratory studies are conducted. Chest x-ray demonstrates pleural effusion. Recommended admission. Spoke with Dr. Molina who agreed to admit the patient. She was given a dose of Lasix. Will consult cardiology and pulmonology Undiagnosed new problem with uncertain prognosis? @ -No Drug Therapy requiring intensive monitoring for toxicity (Heparin, Nitro, Insulin, Cardizem)? @ -No Were any procedures done? @ -No Diagnosis/symptom? @ -Acute respiratory insufficiency, bilateral lower extremity edema, right pleural effusion, CHF exacerbation Acute, or Chronic, or Acute on Chronic? @ -Acute Uncomplicated (without systemic symptoms) or Complicated (systemic symptoms)? @ -Complicated Side effects of treatment? @ -No Exacerbation, Progression, or Severe Exacerbation? @ -Yes Poses a threat to life or bodily function? How? (Chest pain, [place], [place], pneumonia, PE, COPD, DKA, ARF, appy, cholecystitis, CVA, Diverticulitis, Homicidal, Suicidal, threat to staff... and all critical care pts) @ -No - Lab Data Result diagrams: 11/24/23 07:53 11/25/23 08:47 Lab Results 11/22/23 11/22/23 11/22/23 Range/Units 19:16 19:16 19:16 WBC 9.3 (3.8-10.6) k/uL RBC 2.92 L (3.80-5.40) m/uL Hgb 9.1 L (11.4-16.0) gm/dL Hct 27.3 L (34.0-46.0) % MCV 93.6 (80.0-100.0) fL MCH 31.1 (25.0-35.0) pg MCHC 33.3 (31.0-37.0) g/dL RDW 16.4 H (11.5-15.5) % Plt Count 344 (150-450) k/uL MPV 8.6 Neutrophils % 67 % Lymphocytes % 20 % Monocytes % 5 % Eosinophils % 6 % Basophils % 1 % Neutrophils # 6.2 (1.3-7.7) k/uL Lymphocytes # 1.8 (1.0-4.8) k/uL Monocytes # 0.5 (0-1.0) k/uL Eosinophils # 0.6 (0-0.7) k/uL Basophils # 0.1 (0-0.2) k/uL Anisocytosis Slight PT 10.8 (10.0-12.5) sec INR 1.0 (<1.2) APTT 25.0 (22.0-30.0) sec Sodium 134 L (137-145) mmol/L Potassium 5.8 H (3.5-5.1) mmol/L Chloride 106 (98-107) mmol/L Carbon Dioxide 21 L (22-30) mmol/L Anion Gap 7 mmol/L BUN 77 H (7-17) mg/dL Creatinine 2.46 H (0.52-1.04) mg/dL Est GFR (CKD-EPI)AfAm 20 (>60 ml/min/1.73 sqM) Est GFR (CKD-EPI)NonAf 17 (>60 ml/min/1.73 sqM) Glucose 200 H (74-99) mg/dL Plasma Lactic Acid [place] (0.7-2.0) mmol/L Calcium 9.1 (8.4-10.2) mg/dL Magnesium 2.2 (1.6-2.3) mg/dL Total Bilirubin 0.5 (0.2-1.3) mg/dL AST 28 (14-36) U/L ALT 20 (4-34) U/L Alkaline Phosphatase 185 H (38-126) U/L Troponin I (0.000-0.034) ng/mL NT-Pro-B Natriuret Pep 8890 pg/mL Total Protein 7.0 (6.3-8.2) g/dL Albumin 3.7 (3.5-5.0) g/dL 11/22/23 11/22/23 Range/Units 19:16 19:16 WBC (3.8-10.6) k/uL RBC (3.80-5.40) m/uL Hgb (11.4-16.0) gm/dL Hct (34.0-46.0) % MCV (80.0-100.0) fL MCH (25.0-35.0) pg MCHC (31.0-37.0) g/dL RDW (11.5-15.5) % Plt Count (150-450) k/uL MPV Neutrophils % % Lymphocytes % % Monocytes % % Eosinophils % % Basophils % % Neutrophils # (1.3-7.7) k/uL Lymphocytes # (1.0-4.8) k/uL Monocytes # (0-1.0) k/uL Eosinophils # (0-0.7) k/uL Basophils # (0-0.2) k/uL Anisocytosis PT (10.0-12.5) sec INR (<1.2) APTT (22.0-30.0) sec Sodium (137-145) mmol/L Potassium (3.5-5.1) mmol/L Chloride (98-107) mmol/L Carbon Dioxide (22-30) mmol/L Anion Gap mmol/L BUN (7-17) mg/dL Creatinine (0.52-1.04) mg/dL Est GFR (CKD-EPI)AfAm (>60 ml/min/1.73 sqM) Est GFR (CKD-EPI)NonAf (>60 ml/min/1.73 sqM) Glucose (74-99) mg/dL Plasma Lactic Acid [place] 1.1 (0.7-2.0) mmol/L Calcium (8.4-10.2) mg/dL Magnesium (1.6-2.3) mg/dL Total Bilirubin (0.2-1.3) mg/dL AST (14-36) U/L ALT (4-34) U/L Alkaline Phosphatase (38-126) U/L Troponin I 0.062 H* (0.000-0.034) ng/mL NT-Pro-B Natriuret Pep pg/mL Total Protein (6.3-8.2) g/dL Albumin (3.5-5.0) g/dL Disposition Clinical Impression: Acute respiratory insufficiency, Pulmonary edema, Pleural effusion Disposition: ADMITTED IP TO THIS [facility] Condition: Stable Is patient prescribed a controlled substance at d/c from ED?: No Time of Disposition: 20:33 Decision to Admit Reason: Admit from EC Decision Date: 11/22/23 Decision Time: 20:33
--- NOTE | 2023-11-22 18:37 | XR ---
EXAMINATION TYPE: XR chest 2V DATE OF EXAM: 11/22/2023 6:26 PM CLINICAL INDICATION:Female, 83 years old with history of difficulty breathing; H COMPARISON: Chest radiographs from 09/11/2023 TECHNIQUE: XR chest 2V Frontal and lateral views of the chest. FINDINGS: Lungs/Pleura: Opacities on the right hilar region on prior are resolved. There is no evidence of pleu ral effusion, focal consolidation, or pneumothorax. Pulmonary vascularity: Unremarkable. Heart/mediastinum: Cardiomediastinal silhouette is enlarged and stable. Two lead cardiac conduction d evice overlying the left hemithorax with lead tips projecting over the right ventricle and right atri um. Musculoskeletal: Degenerative changes of the shoulder joints. Midline sternotomy wires and surgical c lips project over the mediastinum. IMPRESSION: Cardiomegaly with left pleural effusion. Not significantly changed from 09/11/2023.
[2023-11-22 19:39] LABS: Anisocytosis Slight; Basophils # (A) 0.1 k/uL (0-0.2); Basophils % (A) 1 %; Eosinophils # (A) 0.6 k/uL (0-0.7); Eosinophils % (A) 6 %; HCT 27.3 % (34.0-46.0); HGB 9.1 gm/dL (11.4-16.0); Lymphocytes # (A) 1.8 k/uL (1.0-4.8); Lymphocytes % (A) 20 %; MCH 31.1 pg (25.0-35.0); MCHC 33.3 g/dL (31.0-37.0); MCV 93.6 fL (80.0-100.0); Mean Platelet Volume 8.6; Monocytes # (A) 0.5 k/uL (0-1.0); Monocytes % (A) 5 %; Neutrophils # (A) 6.2 k/uL (1.3-7.7); Neutrophils % (A) 67 %; Platelet Count 344 k/uL (150-450); RBC 2.92 m/uL (3.80-5.40); RDW 16.4 % (11.5-15.5); WBC 9.3 k/uL (3.8-10.6)
[2023-11-22 19:46] LABS: Prothrombin Time 10.8 sec (10.0-12.5)
[2023-11-22 19:53] LABS: NT-Pro-B-Type Natriuretic Pept 8890 pg/mL
[2023-11-22 20:01] LABS: ALT 20 U/L (4-34); AST 28 U/L (14-36); African American GFR (CKD) 20 (>60 ml/min/1.73 sqM); Albumin 3.7 g/dL (3.5-5.0); Alkaline Phosphatase 185 U/L (38-126); Anion Gap 7 mmol/L; Blood Urea Nitrogen 77 mg/dL (7-17); Calcium 9.1 mg/dL (8.4-10.2); Carbon Dioxide 21 mmol/L (22-30); Chloride 106 mmol/L (98-107); Glucose 200 mg/dL (74-99); Magnesium 2.2 mg/dL (1.6-2.3); Non-African American GFR(CKD) 17 (>60 ml/min/1.73 sqM); Potassium 5.8 mmol/L (3.5-5.1); Sodium 134 mmol/L (137-145); Total Bilirubin 0.5 mg/dL (0.2-1.3)
[2023-11-22] MEDS ORDERED: NALOXONE 0.4 MG/ML 1 ML VIAL IV PRN (20:33)
[2023-11-22] MEDS: ACETAMINOPHEN TAB 500 MG TAB PO STA (20:35)
[2023-11-22] MEDS: FUROSEMIDE 10 MG/ML 4 ML VIAL IV STA (21:57)
--- NOTE | 2023-11-22 22:09 | P.HPIM ---
History of Present Illness H&P Date: 11/22/23 Patient is a 83-year-old female with a PMH of diastolic congestive heart failure (last echo from 08/2023 showing moderate LVH with EF 50 to 55%), CAD status post CABG, complete heart block status post pacemaker placement, chronic kidney disease stage IV, type II DM, hypertension, hyperlipidemia, who presents to the emergency room with complaints of shortness of breath and lower extremity edema. Symptoms gradually worsening over the past 1 month. Over the past 3 days, she has been sleeping in a reclined position due to orthopnea and has been experiencing PND. Denies experiencing chest discomfort, palpitations, nausea, vomiting, diaphoresis. She has been chronically bedbound since her pacemaker placement despite a stay at SNF for 22 days as per patient and despite having home PT. She also has had an indwelling Woodard catheter since her recent hospitalization on 09/07/2023 due to urinary retention. Denies experiencing abdominal pain or urinary complaints. There were prior discussions with family during recent discharge regarding pursuing palliative/hospice care. Chest x-ray in the emergency room revealed cardiomegaly with left-sided pleural effusion with EKG showing V paced rhythm at 60 bpm as read by me. Laboratory evaluation was remarkable for hemoglobin 9.1 (at baseline), sodium 134, potassium 5.8, creatinine 2.46 (at baseline), proBNP 8890, and troponin 0.062. The patient's SpO2 in the emergency room was 99% on 2 L nasal cannula oxygen. ED documentation reviewed and case discussed with ED provider. Review of systems: Pertinent positives and negatives as discussed in HPI, a complete review of systems was performed and all other systems are negative. Physical examination: Vital signs reviewed General: non toxic, no distress, appears at stated age, normal weight Derm: no unusual rashes/lesions, warm Head: atraumatic, normocephalic, symmetric Eyes: EOMI, no lid lag, anicteric sclera, pupils equal round reactive to light ENT: Nose and ears atraumatic Neck: No cervical lymphadenopathy, trachea midline, supple Mouth: no lip lesion, mucus membranes moist Cardiovascular: S1S2 reg, systolic murmur appreciated, positive dorsalis pedis pulse bilateral, 2+ bilateral lower extremity pitting edema to thighs with venous stasis dermatitis noted Lungs: Bibasilar rales without wheezing, no accessory muscle use Abdominal: soft, nontender to palpation, no guarding Ext: muscle strength 3 out of 5 in all 4 extremities grossly, no gross muscle atrophy, no contractures, Neuro: CN II-XI grossly intact, no gross focal neuro deficits Psych: Alert, oriented, appropriate affect Assessment: Acute diastolic CHF exacerbation Troponin elevation, likely secondary to demand ischemia from CHF exacerbation Left-sided pleural effusion Hyperkalemia, may be due to chronic kidney disease Chronic conditions: Chronic kidney disease stage IV, CAD status post CABG, anemia of chronic disease, hypertension, debility, indwelling woodard catheter for urinary retention Imaging: Chest x-ray in the emergency room revealed cardiomegaly with left-sided pleural effusion with EKG showing V paced rhythm at 60 bpm as read by me. Data Review: Laboratory evaluation was remarkable for hemoglobin 9.1 (at baseline), sodium 134, potassium 5.8, creatinine 2.46 (at baseline), proBNP 8890, and troponin 0.062. The patient's SpO2 in the emergency room was 99% on 2 L nasal cannula oxygen. Plan: Continue with Lasix 40 mg IV every 8 hourly Cardiology consult Cardiac monitoring Trend troponin Intake and output Daily weights Fluid restriction Pulmonary consult for possible thoracentesis Continue remaining home medications Hold patient's home Norvasc in light of significant lower extremity edema and venous stasis dermatitis Monitor BMP, status post calcium gluconate DVT prophylaxis: Lovenox subcu The patient is admitted with an anticipated greater than 2 midnight stay for evaluation of acute CHF exacerbation CODE STATUS: Full Code Discussed with: Patient Anticipated discharge place: Home Past Medical History Past Medical History: Coronary Artery Disease (CAD), Heart Failure, Diabetes Mellitus, Hyperlipidemia, Hypertension, Renal Disease Additional Past Medical History / Comment(s): pacemaker for complete heart block, AVR History of Any Multi-Drug Resistant Organisms: None Reported Past Surgical History: Appendectomy, Cholecystectomy, Coronary Bypass/CABG, Hysterectomy, Pacemaker, Tonsillectomy Past Anesthesia/Blood Transfusion Reactions: No Reported Reaction Past Psychological History: No Psychological Hx Reported Smoking Status: Never smoker Past Alcohol Use History: None Reported Past Drug Use History: None Reported - Past Family History Father History Unknown: Yes Family Medical History: COPD Medications and Allergies Home Medications Medication Instructions Recorded Confirmed Type Aspirin [Adult Low Dose Aspirin EC] 81 mg PO DAILY@1200 08/22/22 11/22/23 History Simvastatin [Zocor] 20 mg PO HS 08/22/22 11/22/23 History Cholecalciferol [Vitamin D3 (25 50 mcg PO DAILY@1200 02/28/23 11/22/23 History Mcg = 1000 Iu)] Cyanocobalamin (Vitamin B-12) 1,000 mcg PO DAILY@1200 02/28/23 11/22/23 History [Vitamin B-12] Turmeric Root Extract [Turmeric] 500 mg PO DAILY@1200 02/28/23 11/22/23 History Ubidecarenone [Co Q-10] 30 mg PO 09/06/23 11/22/23 History amLODIPine [Norvasc] 5 mg PO HS 11/17/23 11/22/23 History calcitrioL 0.25 mcg PO SA 11/17/23 11/22/23 History Allergies Allergy/AdvReac Type Severity Reaction Status Date / Time cephalexin Allergy Unknown Verified 11/22/23 17:08 ciprofloxacin [From Cipro] Allergy Unknown Verified 11/22/23 17:08 codeine Allergy Unknown Verified 11/22/23 17:08 Physical Exam Vitals: Vital Signs Temp Pulse Resp BP Pulse Ox 11/22/23 20:00 60 24 156/66 99 11/22/23 16:28 55 L 22 162/64 99 11/22/23 16:24 22 11/22/23 16:14 97.4 F L 61 20 189/63 100 Intake and Output 11/22/23 11/22/23 11/22/23 06:59 14:59 22:59 Other: Weight 56.699 kg Results CBC & Chem 7: 11/22/23 19:16 11/22/23 19:16 Labs: Abnormal Lab Results - Last 24 Hours (Table) 11/22/23 11/22/23 11/22/23 Range/Units 19:16 19:16 19:16 RBC 2.92 L (3.80-5.40) m/uL Hgb 9.1 L (11.4-16.0) gm/dL Hct 27.3 L (34.0-46.0) % RDW 16.4 H (11.5-15.5) % Sodium 134 L (137-145) mmol/L Potassium 5.8 H (3.5-5.1) mmol/L Carbon Dioxide 21 L (22-30) mmol/L BUN 77 H (7-17) mg/dL Creatinine 2.46 H (0.52-1.04) mg/dL Glucose 200 H (74-99) mg/dL Alkaline Phosphatase 185 H (38-126) U/L Troponin I 0.062 H* (0.000-0.034) ng/mL
[2023-11-22] MEDS: FUROSEMIDE 10 MG/ML 4 ML VIAL IV SCH (23:03)
[2023-11-22] MEDS: CALCIUM GLUCONATE IN NACL 1 GM in SALINE 1 100ML.BAG IVPB ONE (23:04)
[2023-11-22] MEDS: SODIUM POLYSTYRENE SULFONATE 15 GM/60 ML BOTTLE PO ONE (23:04)
--- NOTE | 2023-11-23 01:19 | P.CNPUL ---
History of Present Illness Consult date: 11/23/23 Requesting physician: Tata Carey Reason for consult: pleural effusion Chief complaint: Shortness of breath, orthopnea, lower extremity swelling History of present illness: I am seeing this patient in consultation today November 23, 2023 after she presented to the emergency room yesterday evening complaining of progressively worsening shortness of breath over the last 2 to 3 days. Patient is a 83-year-old white female who is debilitated, she has chronic diastolic congestive heart failure, coronary artery disease with previous CABG and aortic valve replacement, a pacemaker for complete heart block, hyperlipidemia, hypertension, diabetes mellitus, chronic kidney disease stage IV, among other things. Patient states that over the last 2 to 3 days she has been progressively more short of breath. She endorses orthopnea and PND. She has had increased lower extremity swelling. She states that her kidney doctor had stopped her diuretics back in August due to worsening renal function. she is mostly bedridden, she cannot ambulate. Denies cough, sputum production, fevers, or other infectious symptoms. No history of lung disease such as asthma or COPD. Denies chest pain, heart palpitations, or syncopal events. The pulmonary team did see this patient for similar symptoms back in August,. Echocardiogram done that admission showed a preserved left ventricular ejection fraction of 50 to 55% with moderate concentric LVH, mild to moderate pulmonary hypertension, mild aortic stenosis, and moderate mitral regurgitation. She had a left-sided pleural effusion at that time, and no thoracentesis was needed. Chest x-ray on this admission redemonstrates cardiomegaly with a chronic left- sided pleural effusion. No significant change from prior examination. Patient is currently sitting up in bed, on 3 L/min nasal cannula, in no acute distress. SpO2 is 99%. She does have pitting lower extremity edema. NT proBNP was 8890. Troponins are trending at 0.062 and 0.066. BMP on arrival: Sodium 134, potassium 5.8, chloride 106, serum bicarb 21, BUN 77, creatinine 2.46, glucose 200. Lactic acid level 1.1. CBC on arrival: WBC count 9.3, hemoglobin 9.1, hematocrit 27.3, platelets 344. She has been restarted on Lasix 40 mg 3 times daily. She has a chronic indwelling catheter, the Ordoñez catheter bag is approximately one third full. Vital signs are stable. Review of Systems REVIEW OF SYSTEMS: CONSTITUTIONAL: Does not weigh herself. Denies fevers. Admits fatigue. EYES: Denies change in vision. EARS, NOSE, MOUTH, THROAT: Denies headaches, denies sore throat. CARDIOVASCULAR: See HPI RESPIRATORY: see HPI GASTROINTESTINAL: Denies change in appetite, abdominal pain, nausea and vomiting, or diarrhea GENITOURINARY: Denies hematuria, denies infections. MUSKULOSKELETAL: Denies pain, denies swelling. INTEGUMENTARY: Denies rash, denies eczema. NEUROLOGICAL: Denies recent memory loss, no recent seizure activity. PSYCHIATRIC: Denies anxiety, denies depression. HEMATOLOGIC/LYMPHATIC: Admits chronic anemia, denies enlarged lymph node Past Medical History Past Medical History: Coronary Artery Disease (CAD), Heart Failure, Diabetes Mellitus, Hyperlipidemia, Hypertension, Renal Disease Additional Past Medical History / Comment(s): pacemaker for complete heart bloc k, AVR History of Any Multi-Drug Resistant Organisms: None Reported Past Surgical History: Appendectomy, Cholecystectomy, Coronary Bypass/CABG, Hysterectomy, Pacemaker, Tonsillectomy Past Anesthesia/Blood Transfusion Reactions: No Reported Reaction Past Psychological History: No Psychological Hx Reported Smoking Status: Never smoker Past Alcohol Use History: None Reported Past Drug Use History: None Reported - Past Family History Father History Unknown: Yes Family Medical History: COPD Medications and Allergies Home Medications Medication Instructions Recorded Confirmed Type Aspirin [Adult Low Dose Aspirin EC] 81 mg PO DAILY@119908/22/22 11/22/23 History Simvastatin [Zocor] 20 mg PO 08/22/22 11/22/23 History Cholecalciferol [Vitamin D3 (25 50 mcg PO DAILY@119902/28/23 11/22/23 History Mcg = 1000 Iu)] Cyanocobalamin (Vitamin B-12) 1,000 mcg PO DAILY@119902/28/23 11/22/23 History [Vitamin B-12] Turmeric Root Extract [Turmeric] 500 mg PO DAILY@119902/28/23 11/22/23 History Ubidecarenone [Co Q-10] 30 mg PO 09/06/23 11/22/23 History amLODIPine [Norvasc] 5 mg PO 11/17/23 11/22/23 History calcitrioL 0.25 mcg PO 11/17/23 11/22/23 History Allergies Allergy/AdvReac Type Severity Reaction Status Date / Time cephalexin Allergy Unknown Verified 11/22/23 17:08 ciprofloxacin [From Cipro] Allergy Unknown Verified 11/22/23 17:08 codeine Allergy Unknown Verified 11/22/23 17:08 Physical Exam Vitals: Vital Signs Temp Pulse Resp BP Pulse Ox 11/22/23 20:00 60 24 156/66 99 11/22/23 16:28 55 L 22 162/64 99 11/22/23 16:24 22 11/22/23 16:14 97.4 F L 61 20 189/63 100 Intake and Output 11/22/23 11/22/23 11/23/23 14:59 22:59 06:59 Other: Weight 56.699 kg GENERAL EXAM: Alert, 83-year-old white female, sitting with the head of the bed up, comfortable in no apparent distress. HEAD: Normocephalic and atraumatic EYES: Normal reaction of pupils, equal size. NOSE: Clear with pink turbinates. THROAT: No erythema or exudates. NECK: No masses, no JVD. CHEST: No chest wall deformity. LUNGS: Equal air entry with diminished lung sounds at the left base with inspiratory crackles. On 3 L/min nasal cannula. No conversational dyspnea or accessory muscle use.. CVS: S1 and S2 normal with systolic grade 2 murmur, regular rhythm. No other extra heart sounds ABDOMEN: No hepatosplenomegaly, active bowel sounds, no guarding or rigidity. SPINE: No scoliosis or deformity SKIN: No rashes CENTRAL NERVOUS SYSTEM: No focal deficits, tone is normal in all 4 extremities. EXTREMITIES: There is bilateral 2+ lower extremity pitting edema. No clubbing, or cyanosis. Peripheral pulses are intact. Results - Laboratory Findings CBC and BMP: 11/22/23 19:16 11/22/23 19:16 PT/INR, D-dimer PT 10.8 sec (10.0-12.5) 11/22/23 19:16 INR 1.0 (<1.2) 11/22/23 19:16 Abnormal lab findings: Abnormal Labs 11/22/23 11/22/23 11/22/23 19:16 19:16 19:16 RBC 2.92 L Hgb 9.1 L Hct 27.3 L RDW 16.4 H Sodium 134 L Potassium 5.8 H Carbon Dioxide 21 L BUN 77 H Creatinine 2.46 H Glucose 200 H Alkaline Phosphatase 185 H Troponin I 0.062 H* - Diagnostic Findings Chest x-ray: image reviewed Assessment and Plan Assessment: Acute exacerbation of chronic diastolic congestive heart failure Chronic left-sided pleural effusion, no significant interval change from previous. Acute hypoxic respiratory failure, currently on 3 L of oxygen by nasal cannula, secondary to above Elevated troponins, possible secondary to supply/demand ischemia Hyperkalemia, no hyperacute T waves or QRS widening Chronic kidney disease stage IV Anemia of chronic disease, secondary to above Coronary artery disease, with previous bypass surgery and aortic valve replacement History of moderate mitral regurgitation Diabetes mellitus type 2 Hypertension History of hyperlipidemia History of complete AV block and permanent pacemaker implantation Plan: Patient's medications, labs, chest x-ray reviewed Patient does have a chronic left-sided pleural effusion. This was previously evaluated, and thoracentesis was not felt necessary at that time. We will reassess pleural effusion size via chest ultrasound. Further recommendations are forthcoming. Patient is not on any anticoagulation. In the meantime, agree with Lasix 40 mg 3 times daily. Continue supplemental oxygen to maintain oxygen saturation greater than 92%. Cardiology has been also asked to see this patient. We will continue to follow I have personally seen and examined the patient, performed the documentation and the assessment and plan as written. Number of minutes spent on the visit: 20. Time with Patient: Greater than 30
[2023-11-23 03:40] LABS: Anisocytosis Slight; Basophils # (A) 0.1 k/uL (0-0.2); Basophils % (A) 1 %; Eosinophils # (A) 0.6 k/uL (0-0.7); Eosinophils % (A) 7 %; HCT 24.5 % (34.0-46.0); Hypochromasia Slight; Lymphocytes # (A) 2.1 k/uL (1.0-4.8); Lymphocytes % (A) 24 %; MCH 31.2 pg (25.0-35.0); MCHC 32.8 g/dL (31.0-37.0); MCV 95.3 fL (80.0-100.0); Mean Platelet Volume 10.2; Monocytes # (A) 0.6 k/uL (0-1.0); Monocytes % (A) 8 %; Neutrophils % (A) 58 %; Platelet Count 269 k/uL (150-450); RBC 2.57 m/uL (3.80-5.40); RDW 16.6 % (11.5-15.5); WBC 8.5 k/uL (3.8-10.6)
[2023-11-23 03:58] LABS: African American GFR (CKD) 20 (>60 ml/min/1.73 sqM); Anion Gap 7 mmol/L; Blood Urea Nitrogen 75 mg/dL (7-17); Carbon Dioxide 20 mmol/L (22-30); Chloride 107 mmol/L (98-107); Glucose 105 mg/dL (74-99); Non-African American GFR(CKD) 17 (>60 ml/min/1.73 sqM); Potassium 5.5 mmol/L (3.5-5.1); Sodium 134 mmol/L (137-145)
[2023-11-23] MEDS: ENOXAPARIN 40 MG/0.4 ML SYRINGE SQ SCH (08:24)
--- NOTE | 2023-11-23 08:24 | US ---
EXAMINATION TYPE: US chest DATE OF EXAM: 11/22/2023 COMPARISON: Xray: 11/22/23, US: 09/11/23 CLINICAL INDICATION: Female, 83 years old with history of left pleural effusion; Markings Left side limited due to that side being weak TECHNIQUE: Targeted ultrasound of the posterior lower bilateral hemithoraces EXAM MEASUREMENTS: Right Pleural Effusion pocket size: 8.2 cm Right skin surface to fluid distance: 2.6 cm Left Pleural Effusion pocket size: 9.5 cm Left skin surface to fluid distance: 1.4 cm Right side marked for possible thoracentesis outside the dept. Left side marked for possible thoracentesis outside the dept. Pulmonologists are able to review the images in the patient?s EMR. IMPRESSIONS: Bilateral pleural effusions marked for thoracentesis.
[2023-11-23] MEDS: ENOXAPARIN 30 MG/0.3 ML SYRINGE SQ SCH (08:47)
--- NOTE | 2023-11-23 11:25 | P.PN ---
Subjective Progress Note Date: 11/23/23 83-year-old female with a PMH of diastolic congestive heart failure (last echo from 08/2023 showing moderate LVH with EF 50 to 55%), CAD status post CABG, complete heart block status post pacemaker placement, chronic kidney disease stage IV, type II DM, hypertension, hyperlipidemia, who presents to the em ergency room with complaints of shortness of breath and lower extremity edema. + orthopnea. She has been chronically bedbound since her pacemaker placement despite a stay at SNF for 22 days as per patient and despite having home PT. She also has had an indwelling Woodard catheter since her recent hospitalization on 09/07/2023 due to urinary retention. Chest x-ray in the emergency room revealed cardiomegaly with left-sided pleural effusion with EKG showing V paced rhythm at 60 bpm. Laboratory evaluation was remarkable for hemoglobin 9.1 (at baseline), sodium 134, potassium 5.8, creatinine 2.46 (at baseline), proBNP 8890, and troponin 0.062. The patient's SpO2 in the emergency room was 99% on 2 L nasal cannula oxygen. Patient was admitted for CHF exacerbation and started on Lasix 40 mg IV TID. Cardiology and Pulmonary was consulted. 11/23 Patient was seen and examined. Reports slight improvement in her breathing. Currently on 3L NC. CBC Hg 8 Hct 24.5. CMP Na 134, K 5.5, bicarb 20, BUN 75, Cr 2.49, glu 105. Trop 0.066, 0.068. General: non toxic, no distress, appears at stated age, normal weight Derm: no unusual rashes/lesions, warm Head: atraumatic, normocephalic, symmetric Eyes: EOMI, no lid lag, anicteric sclera ENT: Nose and ears atraumatic Neck: No cervical lymphadenopathy, trachea midline, supple Cardiovascular: S1S2 reg, systolic murmur appreciated, 2+ bilateral lower extremity pitting edema to thighs Lungs: Bibasilar rales, no accessory muscle use Ext: muscle strength 3 out of 5 in all 4 extremities grossly, no gross muscle atrophy, no contractures Neuro: no gross focal neuro deficits Psych: Alert, oriented, appropriate affect Based on my assessment of this patient, this patient meets a high complexity level of care. Patient has an acute diagnosis of CHF exacerbation that poses a threat to life or bodily function. Acute diastolic CHF exacerbation: Lasix 40 mg IV TID. Strict intake and outtake. Daily weights. Cardiology consult. Troponin elevation, likely secondary to demand ischemia from CHF exacerbation: Troponins flat. ACS ruled out. Left-sided pleural effusion: Pulmonary consult. Hyperkalemia: Lasix as above. Status post Ca gluconate and 15g Kayexalate. Improved compared to admission. Repeat at 6PM Chronic conditions: Chronic kidney disease stage IV, CAD status post CABG, anemia of chronic disease, hypertension, debility, indwelling woodard catheter for urinary retention CODE STATUS: FULL CODE. DVT Prophylaxis: Lovenox SQ. GI Prophylaxis: Designated medical POA if patient is not able to make medical decisions for themselves: I have reviewed the following school plant consultant notes: Pulmonary. I have reviewed the results of the following tests: CBC, BMP, Trop. I have ordered the following tests: BMP. I have discussed the care of this patient with the following independent historian: I have independently interpreted the following test below: I have discussed the management of this patient with the following physician: This patient has a high risk of morbidity due to the following reasons: This patient meets a high level of care for the following reasons: Patient requires IV lasix which requires intensive monitoring for renal toxicity. Objective - Vital Signs Vital signs: Vital Signs Temp 97.5 F L 11/23/23 07:47 Pulse 60 11/23/23 07:47 Resp 18 11/23/23 07:47 BP 150/58 11/23/23 07:47 Pulse Ox 100 11/23/23 07:47 FiO2 Intake & Output 11/22/23 11/23/23 11/23/23 18:59 06:59 18:59 Output Total 1225 Balance -1225 Weight 56.699 kg Output: Urine 1225 - Labs CBC & Chem 7: 11/23/23 02:56 11/23/23 02:56 Labs: Abnormal Lab Results - Last 24 Hours (Table) 11/22/23 11/22/23 11/22/23 Range/Units 19:16 19:16 19:16 RBC 2.92 L (3.80-5.40) m/uL Hgb 9.1 L (11.4-16.0) gm/dL Hct 27.3 L (34.0-46.0) % RDW 16.4 H (11.5-15.5) % Sodium 134 L (137-145) mmol/L Potassium 5.8 H (3.5-5.1) mmol/L Carbon Dioxide 21 L (22-30) mmol/L BUN 77 H (7-17) mg/dL Creatinine 2.46 H (0.52-1.04) mg/dL Glucose 200 H (74-99) mg/dL Alkaline Phosphatase 185 H (38-126) U/L Troponin I 0.062 H* (0.000-0.034) ng/mL 11/22/23 11/23/23 11/23/23 Range/Units 23:59 02:56 02:56 RBC 2.57 L (3.80-5.40) m/uL Hgb 8.0 L (11.4-16.0) gm/dL Hct 24.5 L (34.0-46.0) % RDW 16.6 H (11.5-15.5) % Sodium (137-145) mmol/L Potassium (3.5-5.1) mmol/L Carbon Dioxide (22-30) mmol/L BUN (7-17) mg/dL Creatinine (0.52-1.04) mg/dL Glucose (74-99) mg/dL Alkaline Phosphatase (38-126) U/L Troponin I 0.066 H* 0.068 H* (0.000-0.034) ng/mL 11/23/23 Range/Units 02:56 RBC (3.80-5.40) m/uL Hgb (11.4-16.0) gm/dL Hct (34.0-46.0) % RDW (11.5-15.5) % Sodium 134 L (137-145) mmol/L Potassium 5.5 H (3.5-5.1) mmol/L Carbon Dioxide 20 L (22-30) mmol/L BUN 75 H (7-17) mg/dL Creatinine 2.49 H (0.52-1.04) mg/dL Glucose 105 H (74-99) mg/dL Alkaline Phosphatase (38-126) U/L Troponin I (0.000-0.034) ng/mL
[2023-11-23] MEDS: ASPIRIN 81 MG PO SCH (12:24)
--- NOTE | 2023-11-23 12:56 | P.CRDCN ---
History of Present Illness Consult date: 11/23/23 Consult reason: congestive heart failure, shortness of breath Chief complaint: shortness of breath, leg edema History of present illness: History of present illness: Patient is a pleasant 83-year-old female with significant past medical history of diastolic congestive heart failure, CAD status post CABG with aortic valve replacement, complete heart block status post pacemaker placement, CKD, type 2 diabetes, hypertension, hyperlipidemia who presented to the emergency department with complaints of worsening shortness of breath and lower extremity swelling. She does follow with Dr. Christensen in the office. She reports that over the past 2 to 3 days her breathing has gotten significantly worse. She denies any chest pain or pressure. Denies any dizziness or syncope. She has not been on any Lasix at home. Chest x-ray shows chronic left pleural effusion unchanged from prior x-ray in August. Labs reviewed: Hemoglobin 8.0, sodium 134, potassium 5.5, creatinine 2.46, BNP 8890, troponin 0.062, 0.066, 0.068. She was started on IV Lasix 40 mg every 8 hours and reports that her breathing slightly better today and that her swelling in her lower extremities has significantly improved. She reports that she is limited in her activities that she had her pacemaker placed and is unable to walk. She had prior echocardiogram 08/2023 that showed EF 50-55%, moderate LVH. REVIEW OF SYSTEMS: No fever or chills. No cough or expectoration. No diaphoresis. Patient denies headache, dizziness, blurred vision, double vision. Patient denies any stomach discomfort. No nausea, vomiting. No hematochezia. No hematemesis. Denies any black stools or blood in his stools. Denies dysuria or hematuria. No muscle weakness or numbness. No chest pain or pressure. PHYSICAL EXAMINATION: This is a 83-year-old female in no apparent distress at the time of my examination. HEENT: Head is atraumatic, normocephalic. Pupils are equal, round. Sclerae anicteric. Conjunctivae are clear. Mucous membranes of the mouth are moist. Neck is supple. There is no jugular venous distention. No carotid bruit is heard. CHEST EXAMINATION: Lungs are diminished left-side. No chest wall tenderness is noted on palpation or with deep breathing. HEART EXAMINATION: Heart regular rate and rhythm. S1, S2 heard. No murmurs, gallops or rub. ABDOMEN: Soft, nontender. Bowel sounds are heard. EXTREMITIES: 2+ peripheral pulses with +1 BLE edema and no calf tenderness noted. NEUROLOGIC EXAMINATION: Patient is awake, alert and oriented x3. IMPRESSION AND PLAN: Dyspnea History of CAD status post CABG History of aortic valve replacement Complete heart block status post pacemaker placement Hypertension Hyperlipidemia Acute on chronic diastolic heart failure CKD Chronic left pleural effusion PLAN: We will continue with IV diuretics and monitor response. Monitor creatinine. pulmonary following for possible thoracentesis. Monitor blood pre ssure. We will follow. I am dictating on behalf of Dr. Avery Ramsey's history/physical and as sessment/plan. Past Medical History Past Medical History: Coronary Artery Disease (CAD), Heart Failure, Diabetes Mellitus, Hyperlipidemia, Hypertension, Renal Disease Additional Past Medical History / Comment(s): pacemaker for complete heart block, AVR History of Any Multi-Drug Resistant Organisms: None Reported Past Surgical History: Appendectomy, Cholecystectomy, Coronary Bypass/CABG, Hysterectomy, Pacemaker, Tonsillectomy Past Anesthesia/Blood Transfusion Reactions: No Reported Reaction Past Psychological History: No Psychological Hx Reported Smoking Status: Never smoker Past Alcohol Use History: None Reported Past Drug Use History: None Reported - Past Family History Father History Unknown: Yes Family Medical History: COPD Medications and Allergies Home Medications Medication Instructions Recorded Confirmed Type Aspirin [Adult Low Dose Aspirin EC] 81 mg PO DAILY@119908/22/22 11/22/23 History Simvastatin [Zocor] 20 mg PO 08/22/22 11/22/23 History Cholecalciferol [Vitamin D3 (25 50 mcg PO DAILY@119902/28/23 11/22/23 History Mcg = 1000 Iu)] Cyanocobalamin (Vitamin B-12) 1,000 mcg PO DAILY@119902/28/23 11/22/23 History [Vitamin B-12] Turmeric Root Extract [Turmeric] 500 mg PO DAILY@119902/28/23 11/22/23 History Ubidecarenone [Co Q-10] 30 mg PO 09/06/23 11/22/23 History amLODIPine [Norvasc] 5 mg PO 11/17/23 11/22/23 History calcitrioL 0.25 mcg PO 11/17/23 11/22/23 History Allergies Allergy/AdvReac Type Severity Reaction Status Date / Time cephalexin Allergy Unknown Verified 11/22/23 17:08 ciprofloxacin [From Cipro] Allergy Unknown Verified 11/22/23 17:08 codeine Allergy Unknown Verified 11/22/23 17:08 Physical Exam Vitals: Vital Signs Temp Pulse Resp BP Pulse Ox 11/23/23 07:47 97.5 F L 60 18 150/58 100 11/23/23 06:00 60 21 152/57 100 11/23/23 05:00 60 22 146/55 100 11/23/23 03:00 60 22 166/63 100 11/23/23 02:00 60 22 154/57 100 11/22/23 23:00 60 23 149/56 100 11/22/23 21:00 60 22 167/65 100 11/22/23 20:00 60 24 156/66 99 11/22/23 16:28 55 L 22 162/64 99 11/22/23 16:24 22 11/22/23 16:14 97.4 F L 61 20 189/63 100 Intake and Output 11/22/23 11/23/23 11/23/23 22:59 06:59 14:59 Output Total 1225 Balance -1225 Output: Urine 1225 Other: Weight 56.699 kg 58.967 kg Results 11/23/23 02:56 11/23/23 02:56 Cardiac Enzymes 11/22/23 11/22/23 11/22/23 Range/Units 19:16 19:16 23:59 AST 28 (14-36) U/L Troponin I 0.062 H* 0.066 H* (0.000-0.034) ng/mL 11/23/23 Range/Units 02:56 AST (14-36) U/L Troponin I 0.068 H* (0.000-0.034) ng/mL Coagulation 11/22/23 Range/Units 19:16 PT 10.8 (10.0-12.5) sec APTT 25.0 (22.0-30.0) sec CBC 11/22/23 11/23/23 Range/Units 19:16 02:56 WBC 9.3 8.5 (3.8-10.6) k/uL RBC 2.92 L 2.57 L (3.80-5.40) m/uL Hgb 9.1 L 8.0 L (11.4-16.0) gm/dL Hct 27.3 L 24.5 L (34.0-46.0) % Plt Count 344 269 (150-450) k/uL Comprehensive Metabolic Panel 11/22/23 11/23/23 Range/Units 19:16 02:56 Sodium 134 L 134 L (137-145) mmol/L Potassium 5.8 H 5.5 H (3.5-5.1) mmol/L Chloride 106 107 (98-107) mmol/L Carbon Dioxide 21 L 20 L (22-30) mmol/L BUN 77 H 75 H (7-17) mg/dL Creatinine 2.46 H 2.49 H (0.52-1.04) mg/dL Glucose 200 H 105 H (74-99) mg/dL Calcium 9.1 9.0 (8.4-10.2) mg/dL AST 28 (14-36) U/L ALT 20 (4-34) U/L Alkaline Phosphatase 185 H (38-126) U/L Total Protein 7.0 (6.3-8.2) g/dL Albumin 3.7 (3.5-5.0) g/dL Current Medications Generic Name Dose Route Start Last Admin Trade Name Freq PRN Reason Stop Dose Admin Acetaminophen 650 mg 11/22/23 20:40 Acetaminophen Tab 325 Mg Tab PO Q6HR PRN Mild Pain or Fever > 100.5 Aspirin 81 mg 11/23/23 12:00 Aspirin 81 Mg PO DAILY@1200 [facility] Atorvastatin Calcium 10 mg 11/23/23 21:00 Atorvastatin 10 Mg Tab PO HS [facility] Calcitriol 0.25 mcg 11/25/23 09:00 Calcitriol 0.25 Mcg Cap PO SA [facility] Enoxaparin Sodium 30 mg 11/23/23 09:00 11/23/23 08:47 Enoxaparin 30 Mg/0.3 Ml Syringe SQ Not Given DAILY [facility]USTO Furosemide 40 mg 11/23/23 00:00 11/23/23 07:51 Furosemide 10 Mg/Ml 4 Ml Vial IV 40 mg Q8HR FAUSTO Administration Naloxone HCl 0.2 mg 11/22/23 20:33 Naloxone 0.4 Mg/Ml 1 Ml Vial IV Q2M PRN Opioid Reversal Intake and Output 11/22/23 11/23/23 11/23/23 22:59 06:59 14:59 Output Total 1225 Balance -1225 Output: Urine 1225 Other: Weight 56.699 kg 58.967 kg Patient Weight 11/24/23 06:59 Weight 58.967 kg 11/23/23 02:56 11/23/23 02:56
[2023-11-23] MEDS: ACETAMINOPHEN TAB 325 MG TAB PO PRN (20:51)
[2023-11-23] MEDS: ATORVASTATIN 10 MG TAB PO SCH (20:54)
[2023-11-24 06:04] LABS: Glucose,Whole Blood 118 mg/dL (70-110)
[2023-11-24 08:42] VITALS: RESP 18
[2023-11-24 08:47] LABS: Anisocytosis Slight; HCT 27.3 % (34.0-46.0); HGB 8.7 gm/dL (11.4-16.0); MCH 30.1 pg (25.0-35.0); MCHC 31.8 g/dL (31.0-37.0); MCV 94.5 fL (80.0-100.0); Mean Platelet Volume 9.1; Platelet Count 313 k/uL (150-450); RBC 2.89 m/uL (3.80-5.40); RDW 16.3 % (11.5-15.5); WBC 8.6 k/uL (3.8-10.6)
[2023-11-24 09:03] LABS: African American GFR (CKD) 18 (>60 ml/min/1.73 sqM); Anion Gap 7 mmol/L; Blood Urea Nitrogen 73 mg/dL (7-17); Carbon Dioxide 25 mmol/L (22-30); Chloride 104 mmol/L (98-107); Glucose 133 mg/dL (74-99); Non-African American GFR(CKD) 16 (>60 ml/min/1.73 sqM); Potassium 4.6 mmol/L (3.5-5.1); Sodium 136 mmol/L (137-145)
[2023-11-24 11:28] LABS: Glucose,Whole Blood 123 mg/dL (70-110)
--- NOTE | 2023-11-24 11:39 | P.PN ---
Subjective Progress Note Date: 11/24/23 Principal diagnosis: Shortness of breath, CHF. I am seeing this patient in consultation today November 23, 2023 after she presented to the emergency room yesterday evening complaining of progressively worsening shortness of breath over the last 2 to 3 days. Patient is a 83-year- old white female who is debilitated, she has chronic diastolic congestive heart failure, coronary artery disease with previous CABG and aortic valve replacement, a pacemaker for complete heart block, hyperlipidemia, hypertension, diabetes mellitus, chronic kidney disease stage IV, among other things. Patient states that over the last 2 to 3 days she has been progressively more short of breath. She endorses orthopnea and PND. She has had increased lower extremity swelling. She states that her kidney doctor had stopped her diuretics back in August due to worsening renal function. she is mostly bedridden, she cannot ambulate. Denies cough, sputum production, fevers, or other infectious s ymptoms. No history of lung disease such as asthma or COPD. Denies chest pain, heart palpitations, or syncopal events. The pulmonary team did see this patient for similar symptoms back in August,. Echocardiogram done that admission showed a preserved left ventricular ejection fraction of 50 to 55% with moderate concentric LVH, mild to moderate pulmonary hypertension, mild aortic stenosis, and moderate mitral regurgitation. She had a left-sided pleural effusion at that time, and no thoracentesis was needed. Chest x-ray on this admission redemonstrates cardiomegaly with a chronic left-sided pleural effusion. No significant change from prior examination. Patient is currently sitting up in bed, on 3 L/min nasal cannula, in no acute distress. SpO2 is 99%. She does have pitting lower extremity edema. NT proBNP was 8890. Troponins are trending at 0.062 and 0.066. BMP on arrival: Sodium 134, potassium 5.8, chloride 106, serum bicarb 21, BUN 77, creatinine 2.46, glucose 200. Lactic acid level 1.1. CBC on arrival: WBC count 9.3, hemoglobin 9.1, hematocrit 27.3, platelets 344. She has been restarted on Lasix 40 mg 3 times daily. She has a chronic indwelling catheter, the Ordoñez catheter bag is approximately one third full. Vital signs are stable. Progress note dated November 24, 2023. The patient was seen today room 369. The patient was admitted with a diagnosis of CHF. Today she is feeling much better. She is on 3 L of oxygen. No IV fluids. Her lower extremity edema is much improved. She does have bibasilar crackles. The patient's ultrasound did reveal bilateral effusions, but the patient still stable, and not really complaining much of shortness of breath, thoracentesis would not be done at this time. White count is 8.6, hemoglobin 8.7, hematocrit 27.3, platelet count 313,000. Sodium 136, potassium 4.6, chloride 104, CO2 25, BUN 73, creatinine 2.66. Calcium is 9. Glucose is 123. Objective - Vital Signs Vital signs: Vital Signs Temp 97.9 F 11/24/23 08:16 Pulse 60 11/24/23 11:28 Resp 18 11/24/23 11:28 BP 149/65 11/24/23 11:28 Pulse Ox 100 11/24/23 11:28 FiO2 Intake & Output 11/23/23 11/24/23 11/24/23 18:59 06:59 18:59 Intake Total 300 Output Total 2800 950 Balance -2800 -950 300 Weight 58.967 kg 44.5 kg Intake: Oral 300 Output: Urine 2800 950 Other: Voiding Method Indwelling Catheter Indwelling Catheter - Exam No acute distress, oriented 3. Currently on 3 L of oxygen. No conversational dyspnea or use of accessory muscles. HEENT examination is grossly unremarkable. Mucous membranes are moist. No oral lesions. Neck supple. Full range of motion. No adenopathy thyromegaly or neck vein distention. Cardiovascular examination reveals regular rhythm rate. S1-S2 normal. No S3 or S4. No discernible murmur noted. Heart sounds are distant. Heart rate 60 bpm. Lungs reveal diminished bilateral breath sounds. Scattered crackles are noted. No wheezes or rhonchi. 3 L saturations at 100%.. Abdomen soft with bowel sounds. No masses or tenderness. Extremities are intact. No cyanosis or clubbing. Mild edema in the lower extremities is appreciated. Skin is without rash or lesion. Neurologic examination is brief but nonfocal. - Labs CBC & Chem 7: 11/24/23 07:53 11/24/23 07:53 Labs: Abnormal Lab Results - Last 24 Hours (Table) 11/24/23 11/24/2324 Range/Units 06:03 07:53 07:53 RBC 2.89 L (3.80-5.40) m/uL Hgb 8.7 L (11.4-16.0) gm/dL Hct 27.3 L (34.0-46.0) % RDW 16.3 H (11.5-15.5) % Sodium 136 L (137-145) mmol/L BUN 73 H (7-17) mg/dL Creatinine 2.66 H (0.52-1.04) mg/dL Glucose 133 H (74-99) mg/dL POC Glucose (mg/dL) 118 H (70-110) mg/dL 11/24/23 Range/Units 11:24 RBC (3.80-5.40) m/uL Hgb (11.4-16.0) gm/dL Hct (34.0-46.0) % RDW (11.5-15.5) % Sodium (137-145) mmol/L BUN (7-17) mg/dL Creatinine (0.52-1.04) mg/dL Glucose (74-99) mg/dL POC Glucose (mg/dL) 123 H (70-110) mg/dL Assessment and Plan Assessment: Acute exacerbation of chronic diastolic congestive heart failure. Chronic left-sided pleural effusion, no significant interval change from previous. Acute hypoxic respiratory failure, currently on 3 L of oxygen by nasal cannula, secondary to above. Elevated troponins, possible secondary to supply/demand ischemia. Hyperkalemia, no hyperacute T waves or QRS widening. Chronic kidney disease stage IV. Anemia of chronic disease, secondary to above. Coronary artery disease, with previous bypass surgery and aortic valve repla cement. History of moderate mitral regurgitation. Diabetes mellitus type 2. Hypertension. History of hyperlipidemia. History of complete AV block and permanent pacemaker implantation. Plan: Plan [place] November 24, 2023. The patient is seen today in room 369. The patient feels much better, and much less short of breath. She actually looks very comfortable today. Her chest ultrasound did show bilateral pleural effusions. Since the patient is doing so well, and not having much in the way of shortness of breath, thoracentesis will not be done at this time. Labs, x-rays, and medications are reviewed. The patient is overall prognosis remains guarded. Will continue to follow the patient, make recommendations along the way. Time with Patient: Less than 30
--- NOTE | 2023-11-24 12:01 | CDI ---
Documentation Clarification Form Date: From: Bertha Carter Phone: [phone] Admit Date: 11/22/2023 08:41:00 PM Patient Name: Felicitas Nielsen Visit Number: [id number] Discharge Date: ATTENTION: The Clinical Documentation Specialists (CDI) and [facility] Coding Staff appreciate your assistance in clarifying documentation. Please respond to the clarification below the line at the bottom and electronically sign. The CDI & [facility] Coding staff will review the response and follow-up if needed. Please note: Queries are made part of the Legal Health Record. If you have any questions, please contact the author of this message via ITS. Dr. Albina Ascencio Patient has a documented BMI of 14.9kg/m2 in the clinical data. Additional clarification is requested. History/Risk Factors: " 83-year-old female with a PMH of diastolic congestive heart failure (last echo from 08/2023 showing moderate LVH with EF 50 to 55%), CAD status post CABG, complete heart block status post pacemaker placement, chronic kidney disease stage IV, type II DM, hypertension, hyperlipidemia, who presents to the emergency room with complaints of shortness of breath and lower extremity edema." - Per H&P on 11/22 Clinical Indicators: "has been chronically bedbound since her pacemaker placement despite a stay at SNF for 22 days" "General: non toxic, no distress, appears at stated age, normal weight" "no gross muscle atrophy, no contractures," - Per Medical H&P on 11/22 Patients weight is 44.5kg Patients height is 5' 8" Calculated BMI is 14.9kg/m2 Treatments: "Daily weights" - Per Medical H&P Oral Nutrition Suppliment TID - per orders Nutrition consult per policy for BMI below 19 Please clarify, is there is an additional diagnosis that is clinically appropriate for this patient? [ ] Cachexia [ x ] Underweight [ ] Malnutrition, (further specify severity and type) [ ] Other, please specify [ ] Unable to determine MTDD
--- NOTE | 2023-11-24 12:07 | CDI ---
Documentation Clarification Form Date: From: Bertha Carter Phone: [phone] Admit Date: 11/22/2023 08:41:00 PM Patient Name: Felicitas Nielsen Visit Number: [id number] Discharge Date: ATTENTION: The Clinical Documentation Specialists (CDI) and [facility] Coding Staff appreciate your assistance in clarifying documentation. Please respond to the clarification below the line at the bottom and electronically sign. The CDI & [facility] Coding staff will review the response and follow-up if needed. Please note: Queries are made part of the Legal Health Record. If you have any questions, please contact the author of this message via ITS. Dr. Avery Ramsey Your patient has troponin levels outside the normal range. Please clarify if there is an additional diagnosis and/or clinical significance related to this value. Patient history/risk factors: "83-year-old female with significant past medical history of diastolic congestive heart failure, CAD status post CABG with aortic valve replacement, complete heart block status post pacemaker placement, CKD, type 2 diabetes, hypertension, hyperlipidemia who presented to the emergency department with complaints of worsening shortness of breath and lower extremity swelling." - Per Cardiology Note on 11/23 Clinical indicators: "Denies experiencing chest discomfort, palpitations, nausea, vomiting, diaphoresis" "EKG showing V paced rhythm at 60 bpm" "Troponin elevation, likely secondary to demand ischemia from CHF exacerbation" - Per Medical H&P on 11/22 Troponin: 11/22 - 0.062, 0.066 11/23 - 0.068 Treatment: Per Medical H&P on 11/22 " Continue with Lasix 40 mg IV every 8 hourly Cardiology consult Cardiac monitoring Trend troponin Intake and output Daily weights" Is there an additional diagnosis and/or clinical significance related to the above lab result/information: [ X ] Type 2 FL due to CHF [ ] Non-ischemic with acute myocardial injury [ ] No additional diagnosis/Not clinically significant [ ] Other, please specify [ ] Unable to determine MTDD
[2023-11-24 12:12] VITALS: BMI 14.9
--- NOTE | 2023-11-24 13:36 | P.PN ---
Subjective Progress Note Date: 11/24/23 83-year-old female with a PMH of diastolic congestive heart failure (last echo from 08/2023 showing moderate LVH with EF 50 to 55%), CAD status post CABG, complete heart block status post pacemaker placement, chronic kidney disease stage IV, type II DM, hypertension, hyperlipidemia, who presents to the em ergency room with complaints of shortness of breath and lower extremity edema. + orthopnea. She has been chronically bedbound since her pacemaker placement despite a stay at SNF for 22 days as per patient and despite having home PT. She also has had an indwelling Woodard catheter since her recent hospitalization on 09/07/2023 due to urinary retention. Chest x-ray in the emergency room revealed cardiomegaly with left-sided pleural effusion with EKG showing V paced rhythm at 60 bpm. Laboratory evaluation was remarkable for hemoglobin 9.1 (at baseline), sodium 134, potassium 5.8, creatinine 2.46 (at baseline), proBNP 8890, and troponin 0.062. The patient's SpO2 in the emergency room was 99% on 2 L nasal cannula oxygen. Patient was admitted for CHF exacerbation and started on Lasix 40 mg IV TID. Cardiology and Pulmonary was consulted. 11/23 Patient was seen and examined. Reports slight improvement in her breathing. Currently on 3L NC. CBC Hg 8 Hct 24.5. CMP Na 134, K 5.5, bicarb 20, BUN 75, Cr 2.49, glu 105. Trop 0.066, 0.068. 11/24 Patient was seen and examined. Significant improvement in her lower extremity swelling. Improved breathing as well. Currently on 3L NC, baseline of 2L NC. CBC HG 8.7 Hct 27.3. BMP Na 136, BUN 73, Cr 2.66, glu 133. General: non toxic, no distress, appears at stated age, normal weight Derm: no unusual rashes/lesions, warm Head: atraumatic, normocephalic, symmetric Eyes: EOMI, no lid lag, anicteric sclera ENT: Nose and ears atraumatic Neck: No cervical lymphadenopathy, trachea midline, supple Cardiovascular: S1S2 reg, systolic murmur appreciated, no edema Lungs: Bibasilar rales, no accessory muscle use Ext: muscle strength 3 out of 5 in all 4 extremities grossly, no gross muscle atrophy, no contractures Neuro: no gross focal neuro deficits Psych: Alert, oriented, appropriate affect Based on my assessment of this patient, this patient meets a high complexity level of care. Patient has an acute diagnosis of CHF exacerbation that poses a threat to life or bodily function. Acute on chronic hypoxic respiratory failure Acute diastolic CHF exacerbation: Decreased Lasix 40 mg IV TID to BID. Strict intake and outtake. Daily weights. Cardiology consult. Troponin elevation, likely secondary to demand ischemia from CHF exacerbation: Troponins flat. ACS ruled out. Left-sided pleural effusion: Pulmonary consult. Resolved: Hyperkalemia Chronic conditions: Chronic kidney disease stage IV, CAD status post CABG, anemi a of chronic disease, hypertension, debility, indwelling woodard catheter for urinary retention CODE STATUS: FULL CODE. DVT Prophylaxis: Lovenox SQ. GI Prophylaxis: Designated medical POA if patient is not able to make medical decisions for themselves: I have reviewed the following wireless sales consultant notes: Pulmonary. I have reviewed the results of the following tests: CBC, BMP, I have ordered the following tests: BMP. I have discussed the care of this patient with the following independent historian: I have independently interpreted the following test below: I have discussed the management of this patient with the following physician: This patient has a high risk of morbidity due to the following reasons: This patient meets a high level of care for the following reasons: Patient requires IV lasix which requires intensive monitoring for renal toxicity. Objective - Vital Signs Vital signs: Vital Signs Temp 97.9 F 11/24/23 08:16 Pulse 60 11/24/23 11:28 Resp 18 11/24/23 11:28 BP 149/65 11/24/23 11:28 Pulse Ox 100 11/24/23 11:28 FiO2 Intake & Output 11/23/23 11/24/23 11/24/23 18:59 06:59 18:59 Intake Total 410 Output Total 2800 950 750 Balance -2800 -950 -340 Weight 58.967 kg 44.5 kg 44.5 kg Intake: Oral 410 Output: Urine 2800 950 750 Other: Voiding Method Indwelling Catheter Indwelling Catheter - Labs CBC & Chem 7: 11/24/23 07:53 11/24/23 07:53 Labs: Abnormal Lab Results - Last 24 Hours (Table) 11/24/23 11/24/23 11/24/23 Range/Units 06:03 07:53 07:53 RBC 2.89 L (3.80-5.40) m/uL Hgb 8.7 L (11.4-16.0) gm/dL Hct 27.3 L (34.0-46.0) % RDW 16.3 H (11.5-15.5) % Sodium 136 L (137-145) mmol/L BUN 73 H (7-17) mg/dL Creatinine 2.66 H (0.52-1.04) mg/dL Glucose 133 H (74-99) mg/dL POC Glucose (mg/dL) 118 H (70-110) mg/dL 11/24/23 Range/Units 11:24 RBC (3.80-5.40) m/uL Hgb (11.4-16.0) gm/dL Hct (34.0-46.0) % RDW (11.5-15.5) % Sodium (137-145) mmol/L BUN (7-17) mg/dL Creatinine (0.52-1.04) mg/dL Glucose (74-99) mg/dL POC Glucose (mg/dL) 123 H (70-110) mg/dL
--- NOTE | 2023-11-24 15:43 | P.PN ---
Subjective Progress Note Date: 11/24/23 Consult reason: congestive heart failure, shortness of breath Chief complaint: shortness of breath, leg edema History of present illness: History of present illness: Patient is a pleasant 83-year-old female with significant past medical history of diastolic congestive heart failure, CAD status post CABG with aortic valve replacement, complete heart block status post pacemaker placement, CKD, type 2 diabetes, hypertension, hyperlipidemia who presented to the emergency department with complaints of worsening shortness of breath and lower extremity swelling. She does follow with Dr. Christensen in the office. She reports that over the past 2 to 3 days her breathing has gotten significantly worse. She denies any chest pain or pressure. Denies any dizziness or syncope. She has not been on any Lasix at home. Chest x-ray shows chronic left pleural effusion unchanged from prior x-ray in August. Labs reviewed: Hemoglobin 8.0, sodium 134, potassium 5.5, creatinine 2.46, BNP 8890, troponin 0.062, 0.066, 0.068. She was started on IV Lasix 40 mg every 8 hours and reports that her breathing slightly better today and that her swelling in her lower extremities has significantly improved. She reports that she is limited in her activities that she had her pacemaker placed and is unable to walk. She had prior echocardiogram 08/2023 that showed EF 50-55%, moderate LVH. 2 Patient is seen today in follow-up. She states her breathing is good today but she is on 3 L nasal cannula. She states she has been urinating quite a bit. She is on Lasix 40 mg every 8 hours by IV. Repeat blood work reveals hemoglobin of 8.7, potassium 4.6, BUN 73 creatinine 2.66. She states that her legs have been weak ever since she had a pacemaker implantation but unable to relate the symptoms to the pacemaker. PHYSICAL EXAMINATION: This is a 83-year-old female in no apparent distress at the time of my examination. HEENT: Head is atraumatic, normocephalic. Pupils are equal, round. Sclerae anicteric. Conjunctivae are clear. Mucous membranes of the mouth are moist. Neck is supple. There is no jugular venous distention. No carotid bruit is heard. CHEST EXAMINATION: Lungs are diminished left-side. No chest wall tenderness is noted on palpation or with deep breathing. HEART EXAMINATION: Heart regular rate and rhythm. S1, S2 heard. No murmurs, gallops or rub. ABDOMEN: Soft, nontender. Bowel sounds are heard. EXTREMITIES: 2+ peripheral pulses with +trace BLE edema and no calf tenderness noted. NEUROLOGIC EXAMINATION: Patient is awake, alert and oriented x3. IMPRESSION AND PLAN: Dyspnea History of CAD status post CABG History of aortic valve replacement Complete heart block status post pacemaker placement Hypertension Hyperlipidemia Acute on chronic diastolic heart failure CKD Chronic left pleural effusion PLAN: Continue IV Lasix 40 mg twice daily Monitor BERNADETTE, daily weights, electrolytes and renal function. Continue current cardiac medications Further recommendations as patient progresses I am dictating on behalf of Dr. Avery Ramsey's history/physical and assessment/plan. Objective - Vital Signs Vital signs: Vital Signs Temp 97.9 F 11/24/23 08:16 Pulse 60 11/24/23 11:28 Resp 18 11/24/23 11:28 BP 149/65 11/24/23 11:28 Pulse Ox 100 11/24/23 11:28 FiO2 Intake & Output 11/23/23 11/24/23 11/24/23 18:59 06:59 18:59 Intake Total 300 Output Total 2800 950 Balance -2800 -950 300 Weight 58.967 kg 44.5 kg 44.5 kg Intake: Oral 300 Output: Urine 2800 950 Other: Voiding Method Indwelling Catheter Indwelling Catheter - Labs CBC & Chem 7: 11/24/23 07:53 11/24/23 07:53 Labs: Abnormal Lab Results - Last 24 Hours (Table) 11/24/23 11/24/23 11/24/23 Range/Units 06:03 07:53 07:53 RBC 2.89 L (3.80-5.40) m/uL Hgb 8.7 L (11.4-16.0) gm/dL Hct 27.3 L (34.0-46.0) % RDW 16.3 H (11.5-15.5) % Sodium 136 L (137-145) mmol/L BUN 73 H (7-17) mg/dL Creatinine 2.66 H (0.52-1.04) mg/dL Glucose 133 H (74-99) mg/dL POC Glucose (mg/dL) 118 H (70-110) mg/dL 11/24/23 Range/Units 11:24 RBC (3.80-5.40) m/uL Hgb (11.4-16.0) gm/dL Hct (34.0-46.0) % RDW (11.5-15.5) % Sodium (137-145) mmol/L BUN (7-17) mg/dL Creatinine (0.52-1.04) mg/dL Glucose (74-99) mg/dL POC Glucose (mg/dL) 123 H (70-110) mg/dL
[2023-11-24] MEDS: FUROSEMIDE 10 MG/ML 4 ML VIAL IV SCH (19:58)
[2023-11-25 09:17] VITALS: TEMP 97.6
--- NOTE | 2023-11-25 10:05 | P.PN ---
Subjective Progress Note Date: 11/25/23 Principal diagnosis: Shortness of breath, CHF. I am seeing this patient in consultation today November 23, 2023 after she presented to the emergency room yesterday evening complaining of progressively worsening shortness of breath over the last 2 to 3 days. Patient is a 83-year- old white female who is debilitated, she has chronic diastolic congestive heart failure, coronary artery disease with previous CABG and aortic valve replacement, a pacemaker for complete heart block, hyperlipidemia, hypertension, diabetes mellitus, chronic kidney disease stage IV, among other things. Patient states that over the last 2 to 3 days she has been progressively more short of breath. She endorses orthopnea and PND. She has had increased lower extremity swelling. She states that her kidney doctor had stopped her diuretics back in August due to worsening renal function. she is mostly bedridden, she cannot ambulate. Denies cough, sputum production, fevers, or other infectious s ymptoms. No history of lung disease such as asthma or COPD. Denies chest pain, heart palpitations, or syncopal events. The pulmonary team did see this patient for similar symptoms back in August,. Echocardiogram done that admission showed a preserved left ventricular ejection fraction of 50 to 55% with moderate concentric LVH, mild to moderate pulmonary hypertension, mild aortic stenosis, and moderate mitral regurgitation. She had a left-sided pleural effusion at that time, and no thoracentesis was needed. Chest x-ray on this admission redemonstrates cardiomegaly with a chronic left-sided pleural effusion. No significant change from prior examination. Patient is currently sitting up in bed, on 3 L/min nasal cannula, in no acute distress. SpO2 is 99%. She does have pitting lower extremity edema. NT proBNP was 8890. Troponins are trending at 0.062 and 0.066. BMP on arrival: Sodium 134, potassium 5.8, chloride 106, serum bicarb 21, BUN 77, creatinine 2.46, glucose 200. Lactic acid level 1.1. CBC on arrival: WBC count 9.3, hemoglobin 9.1, hematocrit 27.3, platelets 344. She has been restarted on Lasix 40 mg 3 times daily. She has a chronic indwelling catheter, the Ordoñez catheter bag is approximately one third full. Vital signs are stable. Progress note dated November 24, 2023. The patient was seen today room 369. The patient was admitted with a diagnosis of CHF. Today she is feeling much better. She is on 3 L of oxygen. No IV fluids. Her lower extremity edema is much improved. She does have bibasilar crackles. The patient's ultrasound did reveal bilateral effusions, but the patient still stable, and not really complaining much of shortness of breath, thoracentesis would not be done at this time. White count is 8.6, hemoglobin 8.7, hematocrit 27.3, platelet count 313,000. Sodium 136, potassium 4.6, chloride 104, CO2 25, BUN 73, creatinine 2.66. Calcium is 9. Glucose is 123. Progress note dated November 25, 2023. 83-year-old female seen in room 369. The patient continues on oxygen at 3 L. No respiratory distress. Her leg swelling is improved, and her breathing is improved. The patient was admitted with a diagnosis of CHF. No new labs today. Objective - Vital Signs Vital signs: Vital Signs Temp 97.6 F 11/25/23 09:02 Pulse 60 11/25/23 09:53 Resp 18 11/25/23 09:53 BP 147/56 11/25/23 09:02 Pulse Ox 98 11/25/23 09:02 FiO2 Intake & Output 11/24/23 11/25/23 11/25/23 18:59 06:59 18:59 Intake Total 646 10 180 Output Total 1350 1050 Balance -704 -1040 180 Weight 44.5 kg 49 kg Intake: IV 10 Invasive Line 1 10 Oral 646 180 Output: Urine 1350 1050 Other: Voiding Method Indwelling Catheter Indwelling Catheter Indwelling Catheter # Bowel Movements 1 1 - Exam No acute distress, oriented 3. Currently on 3 L of oxygen. No conversational dyspnea or use of accessory muscles. HEENT examination is grossly unremarkable. Mucous membranes are moist. No oral lesions. Neck supple. Full range of motion. No adenopathy thyromegaly or neck vein distention. Cardiovascular examination reveals regular rhythm rate. S1-S2 normal. No S3 or S4. No discernible murmur noted. Heart sounds are distant. Heart rate 60 bpm. Lungs reveal diminished bilateral breath sounds. Scattered crackles are noted. No wheezes or rhonchi. 3 L saturations at 98 %. Abdomen soft with bowel sounds. No masses or tenderness. Extremities are intact. No cyanosis or clubbing. Mild edema in the lower extremities is appreciated. Lower extremity edema is much improved. Skin is without rash or lesion. Neurologic examination is brief but nonfocal. - Labs CBC & Chem 7: 11/24/23 07:53 11/24/23 07:53 Labs: Abnormal Lab Results - Last 24 Hours (Table) 11/24/23 Range/Units 11:24 POC Glucose (mg/dL) 123 H (70-110) mg/dL Assessment and Plan Assessment: Acute exacerbation of chronic diastolic congestive heart failure. Chronic left-sided pleural effusion, no significant interval change from previous. Acute hypoxic respiratory failure, currently on 3 L of oxygen by nasal cannula, secondary to above. Elevated troponins, possible secondary to supply/demand ischemia. Hyperkalemia, no hyperacute T waves or QRS widening. Chronic kidney disease stage IV. Anemia of chronic disease, secondary to above. Coronary artery disease, with previous bypass surgery and aortic valve re placement. History of moderate mitral regurgitation. Diabetes mellitus type 2. Hypertension. History of hyperlipidemia. History of complete AV block and permanent pacemaker implantation. Plan: Plan dated November 24, 2023. The patient is seen today in room 369. The patient feels much better, and much less short of breath. She actually looks very comfortable today. Her chest u ltrasound did show bilateral pleural effusions. Since the patient is doing so well, and not having much in the way of shortness of breath, thoracentesis will not be done at this time. Labs, x-rays, and medications are reviewed. The patient is overall prognosis remains guarded. Will continue to follow the patient, make recommendations along the way. Plan dated November 25, 2023. The patient is seen today in room 369. She continues on oxygen at 3 L. Her breathing is much improved. Her lower extremity edema is much improved. We will continue to follow the patient, and make recommendations along the way. Labs, x-rays, and medications are reviewed. The patient's overall prognosis remains very guarded, given her age, and her diagnosis. Time with Patient: Less than 30
[2023-11-25] MEDS: amLODIPine 5 MG TAB PO SCH (10:28)
--- NOTE | 2023-11-25 10:45 | P.PN ---
Subjective Progress Note Date: 11/25/23 Consult reason: congestive heart failure, shortness of breath Chief complaint: shortness of breath, leg edema History of present illness: History of present illness: Patient is a pleasant 83-year-old female with significant past medical history of diastolic congestive heart failure, CAD status post CABG with aortic valve replacement, complete heart block status post pacemaker placement, CKD, type 2 diabetes, hypertension, hyperlipidemia who presented to the emergency department with complaints of worsening shortness of breath and lower extremity swelling. She does follow with Dr. Christensen in the office. She reports that over the past 2 to 3 days her breathing has gotten significantly worse. She denies any chest pain or pressure. Denies any dizziness or syncope. She has not been on any Lasix at home. Chest x-ray shows chronic left pleural effusion unchanged from prior x-ray in August. Labs reviewed: Hemoglobin 8.0, sodium 134, potassium 5.5, creatinine 2.46, BNP 8890, troponin 0.062, 0.066, 0.068. She was started on IV Lasix 40 mg every 8 hours and reports that her breathing slightly better today and that her swelling in her lower extremities has significantly improved. She reports that she is limited in her activities that she had her pacemaker placed and is unable to walk. She had prior echocardiogram 08/2023 that showed EF 50-55%, moderate LVH. 2/2 Patient is seen today in follow-up. She states her breathing is good today but she is on 3 L nasal cannula. She states she has been urinating quite a bit. She is on Lasix 40 mg every 8 hours by IV. Repeat blood work reveals hemoglobin of 8.7, potassium 4.6, BUN 73 creatinine 2.66. She states that her legs have been weak ever since she had a pacemaker implantation but unable to relate the symptoms to the pacemaker. 2/3 Patient has been maintained on IV Lasix 40 mg twice daily. Patient is a negative fluid balance yesterday of 3750. Weights do not appear to be accurate. Blood pressure 147/56, heart rate in the 60s. PHYSICAL EXAMINATION: This is a 83-year-old female in no apparent distress at the time of my examination. HEENT: Head is atraumatic, normocephalic. Pupils are equal, round. Sclerae anicteric. Conjunctivae are clear. Mucous membranes of the mouth are moist. Neck is supple. There is no jugular venous distention. No carotid bruit is heard. CHEST EXAMINATION: Lungs are diminished left-side. No chest wall tenderness is noted on palpation or with deep breathing. HEART EXAMINATION: Heart regular rate and rhythm. S1, S2 heard. No murmurs, gallops or rub. ABDOMEN: Soft, nontender. Bowel sounds are heard. EXTREMITIES: 2+ peripheral pulses with +trace BLE edema and no calf tenderness noted. NEUROLOGIC EXAMINATION: Patient is awake, alert and oriented x3. IMPRESSION AND PLAN: Acute on chronic diastolic heart failure Chronic left pleural effusion History of CAD status post CABG History of aortic valve replacement History of complete heart block status post pacemaker placement Hypertension Hyperlipidemia CKD Diabetes mellitus type 2 PLAN: Transition to oral IV Lasix 40 mg daily Monitor BERNADETTE, daily weights, electrolytes and renal function. Continue amlodipine 5 mg daily Patient is cleared for discharge from cardiology and may follow-up in the office in 1 to 2 weeks. Nurse practitioner note has been reviewed, I agree with documented findings and plan of care. Patient was seen and examined. Objective - Vital Signs Vital signs: Vital Signs Temp 97.6 F 11/25/23 09:02 Pulse 60 11/25/23 09:02 Resp 18 11/25/23 09:02 BP 147/56 11/25/23 09:02 Pulse Ox 98 11/25/23 09:02 FiO2 Intake & Output 11/24/23 11/25/23 11/25/23 18:59 06:59 18:59 Intake Total 646 10 180 Output Total 1350 1050 Balance -704 -1040 180 Weight 44.5 kg 49 kg Intake: IV 10 Invasive Line 1 10 Oral 646 180 Output: Urine 1350 1050 Other: Voiding Method Indwelling Catheter Indwelling Catheter # Bowel Movements 1 1 - Labs CBC & Chem 7: 11/24/23 07:53 11/24/23 07:53 Labs: Abnormal Lab Results - Last 24 Hours (Table) 11/24/23 Range/Units 11:24 POC Glucose (mg/dL) 123 H (70-110) mg/dL
[2023-11-25 10:58] LABS: African American GFR (CKD) 17 (>60 ml/min/1.73 sqM); Anion Gap 7 mmol/L; Blood Urea Nitrogen 80 mg/dL (7-17); Calcium 8.2 mg/dL (8.4-10.2); Carbon Dioxide 26 mmol/L (22-30); Chloride 102 mmol/L (98-107); Glucose 243 mg/dL (74-99); Non-African American GFR(CKD) 15 (>60 ml/min/1.73 sqM); Potassium 4.6 mmol/L (3.5-5.1); Sodium 135 mmol/L (137-145)
--- NOTE | 2023-11-25 12:07 | P.PN ---
Subjective Progress Note Date: 11/25/23 83-year-old female with a PMH of diastolic congestive heart failure (last echo from 08/2023 showing moderate LVH with EF 50 to 55%), CAD status post CABG, complete heart block status post pacemaker placement, chronic kidney disease stage IV, type II DM, hypertension, hyperlipidemia, who presents to the em ergency room with complaints of shortness of breath and lower extremity edema. + orthopnea. She has been chronically bedbound since her pacemaker placement despite a stay at SNF for 22 days as per patient and despite having home PT. She also has had an indwelling Woodard catheter since her recent hospitalization on 09/07/2023 due to urinary retention. Chest x-ray in the emergency room revealed cardiomegaly with left-sided pleural effusion with EKG showing V paced rhythm at 60 bpm. Laboratory evaluation was remarkable for hemoglobin 9.1 (at baseline), sodium 134, potassium 5.8, creatinine 2.46 (at baseline), proBNP 8890, and troponin 0.062. The patient's SpO2 in the emergency room was 99% on 2 L nasal cannula oxygen. Patient was admitted for CHF exacerbation and started on Lasix 40 mg IV TID. Cardiology and Pulmonary was consulted. 11/23 Patient was seen and examined. Reports slight improvement in her breathing. Currently on 3L NC. CBC Hg 8 Hct 24.5. CMP Na 134, K 5.5, bicarb 20, BUN 75, Cr 2.49, glu 105. Trop 0.066, 0.068. 11/24 Patient was seen and examined. Significant improvement in her lower extremity swelling. Improved breathing as well. Currently on 3L NC, baseline of 2L NC. CBC HG 8.7 Hct 27.3. BMP Na 136, BUN 73, Cr 2.66, glu 133. / Patient was seen and examined. Continued improvement in breathing and lower extremity swelling. Currently on 3L NC. Negative 3.75L over the past 24H. Weight change 58.967 - 49 kg since admission. BMP shows Na 135, BUN 80, Cr 2.77, glu 243, Ca 8.2. Discussed with Cardiology, OK for discharge on Lasix 40 mg PO QD. Discussed with patient, she feels a little unsteady on her feet but feels at baseline, would like to go home. General: non toxic, no distress, appears at stated age, normal weight Derm: no unusual rashes/lesions, warm Head: atraumatic, normocephalic, symmetric Eyes: EOMI, no lid lag, anicteric sclera ENT: Nose and ears atraumatic Neck: No cervical lymphadenopathy, trachea midline, supple Cardiovascular: S1S2 reg, systolic murmur appreciated, no edema Lungs: Bibasilar rales, no accessory muscle use Ext: muscle strength 3 out of 5 in all 4 extremities grossly, no gross muscle atrophy, no contractures Neuro: no gross focal neuro deficits Psych: Alert, oriented, appropriate affect Discharge Diagnosis: Acute on chronic hypoxic respiratory failure Acute diastolic CHF exacerbation Troponin elevation, likely secondary to demand ischemia from CHF exacerbation Left-sided pleural effusion Resolved: Hyperkalemia Chronic conditions: Chronic kidney disease stage IV, CAD status post CABG, anemia of chronic disease, hypertension, debility, indwelling woodard catheter for urinary retention This complex discharge took 35 minutes to complete. Objective - Vital Signs Vital signs: Vital Signs Temp 97.8 F 11/25/23 03:48 Pulse 60 11/25/23 03:48 Resp 18 11/25/23 03:48 BP 146/59 11/25/23 03:48 Pulse Ox 97 11/25/23 03:48 FiO2 Intake & Output 11/24/23 11/25/23 11/25/23 18:59 06:59 18:59 Intake Total 646 10 Output Total 1350 1050 Balance -704 -1040 Weight 44.5 kg 49 kg Intake: IV 10 Invasive Line 1 10 Oral 646 Output: Urine 1350 1050 Other: Voiding Method Indwelling Catheter Indwelling Catheter # Bowel Movements 1 - Labs CBC & Chem 7: 11/24/23 07:53 11/25/23 08:47 Labs: Abnormal Lab Results - Last 24 Hours (Table) 11/24/23 11/24/23 11/24/23 Range/Units 07:53 07:53 11:24 RBC 2.89 L (3.80-5.40) m/uL Hgb 8.7 L (11.4-16.0) gm/dL Hct 27.3 L (34.0-46.0) % RDW 16.3 H (11.5-15.5) % Sodium 136 L (137-145) mmol/L BUN 73 H (7-17) mg/dL Creatinine 2.66 H (0.52-1.04) mg/dL Glucose 133 H (74-99) mg/dL POC Glucose (mg/dL) 123 H (70-110) mg/dL
--- NOTE | 2023-11-25 12:08 | P.DS ---
Providers Date of admission: 11/22/23 20:41 Expected date of discharge: 11/25/23 Attending physician: Lise Molina MD Consults: 11/22/23 20:40 Consult Physician Urgent Consulting Provider: Eddy Wu Consult Reason/Comments: acure respiratory insufficiency, right pleural effusion Do you want consulting provider notified?: Yes 11/22/23 20:46 Consult Physician Urgent Consulting Provider: [facility] Consult Reason/Comments: aechf, nstemi Do you want consulting provider notified?: Yes Primary care physician: [facility] Course: 83-year-old female with a PMH of diastolic congestive heart failure (last echo from 08/2023 showing moderate LVH with EF 50 to 55%), CAD status post CABG, complete heart block status post pacemaker placement, chronic kidney disease stage IV, type II DM, hypertension, hyperlipidemia, who presents to the emergency room with complaints of shortness of breath and lower extremity edema. + orthopnea. She has been chronically bedbound since her pacemaker placement despite a stay at SNF for 22 days as per patient and despite having home PT. She also has had an indwelling Woodard catheter since her recent hospitalization on 09/07/2023 due to urinary retention. Chest x-ray in the emergency room revealed cardiomegaly with left-sided pleural effusion with EKG showing V paced rhythm at 60 bpm. Laboratory evaluation was remarkable for hemoglobin 9.1 (at baseline), sodium 134, potassium 5.8, creatinine 2.46 (at baseline), proBNP 8890, and troponin 0.062. The patient's SpO2 in the emergency room was 99% on 2 L nasal cannula oxygen. Patient was admitted for CHF exacerbation and started on Lasix 40 mg IV TID. Cardiology and Pulmonary was consulted. 11/23 Patient was seen and examined. Reports slight improvement in her breathing. Currently on 3L NC. CBC Hg 8 Hct 24.5. CMP Na 134, K 5.5, bicarb 20, BUN 75, Cr 2.49, glu 105. Trop 0.066, 0.068. 11/24 Patient was seen and examined. Significant improvement in her lower extremity swelling. Improved breathing as well. Currently on 3L NC, baseline of 2L NC. CBC HG 8.7 Hct 27.3. BMP Na 136, BUN 73, Cr 2.66, glu 133. 11/25 Patient was seen and examined. Continued improvement in breathing and lower extremity swelling. Currently on 3L NC. Negative 3.75L over the past 24H. Weight change 58.967 - 49 kg since admission. BMP shows Na 135, BUN 80, Cr 2.77, glu 243, Ca 8.2. Discussed with Cardiology, OK for discharge on Lasix 40 mg PO QD. Discussed with patient, she feels a little unsteady on her feet but feels at baseline, would like to go home. General: non toxic, no distress, appears at stated age, normal weight Derm: no unusual rashes/lesions, warm Head: atraumatic, normocephalic, symmetric Eyes: EOMI, no lid lag, anicteric sclera ENT: Nose and ears atraumatic Neck: No cervical lymphadenopathy, trachea midline, supple Cardiovascular: S1S2 reg, systolic murmur appreciated, no edema Lungs: Bibasilar rales, no accessory muscle use Ext: muscle strength 3 out of 5 in all 4 extremities grossly, no gross muscle atrophy, no contractures Neuro: no gross focal neuro deficits Psych: Alert, oriented, appropriate affect Discharge Diagnosis: Acute on chronic hypoxic respiratory failure Acute diastolic CHF exacerbation Troponin elevation, likely secondary to demand ischemia from CHF exacerbation Left-sided pleural effusion Resolved: Hyperkalemia Chronic conditions: Chronic kidney disease stage IV, CAD status post CABG, anemia of chronic disease, hypertension, debility, indwelling woodard catheter for urinary retention This complex discharge took 35 minutes to complete. Patient Condition at Discharge: Stable Plan - Discharge Summary Discharge Rx Participant: Yes New Discharge Prescriptions: New Furosemide [Lasix] 40 mg PO DAILY #30 tablet Continue Aspirin [Adult Low Dose Aspirin EC] 81 mg PO DAILY@1200 Cyanocobalamin (Vitamin B-12) [Vitamin B-12] 1,000 mcg PO DAILY@1200 Turmeric Root Extract [Turmeric] 500 mg PO DAILY@1200 Ubidecarenone [Co Q-10] 30 mg PO HS calcitrioL 0.25 mcg PO SA amLODIPine [Norvasc] 5 mg PO HS Simvastatin [Zocor] 20 mg PO HS Cholecalciferol [Vitamin D3 (25 Mcg = 1000 Iu)] 50 mcg PO DAILY@1200 Discharge Medication List Aspirin [Adult Low Dose Aspirin EC] 81 mg PO DAILY@1200 08/22/22 [History] Simvastatin [Zocor] 20 mg PO HS 08/22/22 [History] Cholecalciferol [Vitamin D3 (25 Mcg = 1000 Iu)] 50 mcg PO DAILY@1200 02/28/23 [History] Cyanocobalamin (Vitamin B-12) [Vitamin B-12] 1,000 mcg PO DAILY@1200 02/28/23 [History] Turmeric Root Extract [Turmeric] 500 mg PO DAILY@1200 02/28/23 [History] Ubidecarenone [Co Q-10] 30 mg PO HS 09/06/23 [History] amLODIPine [Norvasc] 5 mg PO HS 11/17/23 [History] calcitrioL 0.25 mcg PO SA 11/17/23 [History] Furosemide [Lasix] 40 mg PO DAILY #30 tablet 11/25/23 [Rx] Follow up Appointment(s)/Referral(s): Musa Feliciano MD [Primary Care Provider] - 1-2 days (please call and make appointment ) Tacho Tinajero MD [STAFF PHYSICIAN] - 1 Week (please call and make appointment ) [facility] [NON-STAFF] - Patient Instructions/Handouts: Pleural Effusion (DC) Activity/Diet/Wound Care/Special Instructions: Diet: Low salt, fluid restriction 1.5L Discharge/Stand Alone Forms: Who Do I Call? Discharge Disposition: HOME SELF-CARE
[2023-11-25 12:52] VITALS: BP 152/61; PULSE 59
== END 2023-11-25 12:52 | disposition home health service (06) | DRG 280 ==
LOC: EC 16:01 → 2CATHESU 20:41 → 3SCARD 22:09
PROVIDERS: ADMIT Internal Medicine; ATTEND Internal Medicine
DX: I13.0 Hypertensive heart and chronic kidney disease with heart failure and stage 1 through stage 4 chronic kidney disease, or unspecified chronic kidney disease (principal); I50.33 Acute on chronic diastolic (congestive) heart failure; I21.A1 Myocardial infarction type 2; J96.21 Acute and chronic respiratory failure with hypoxia; N18.4 Chronic kidney disease, stage 4 (severe); Z68.1 Body mass index [BMI] 19.9 or less, adult; R53.81 Other malaise; I34.0 Nonrheumatic mitral (valve) insufficiency; I25.10 Atherosclerotic heart disease of native coronary artery without angina pectoris; E87.5 Hyperkalemia; R33.9 Retention of urine, unspecified; E78.5 Hyperlipidemia, unspecified; R63.6 Underweight; E11.22 Type 2 diabetes mellitus with diabetic chronic kidney disease; D63.1 Anemia in chronic kidney disease; I27.20 Pulmonary hypertension, unspecified; Z95.2 Presence of prosthetic heart valve; Z95.1 Presence of aortocoronary bypass graft; Z95.0 Presence of cardiac pacemaker; Z79.899 Other long term (current) drug therapy; Z79.82 Long term (current) use of aspirin; Z74.01 Bed confinement status; Z88.1 Allergy status to other antibiotic agents; Z88.5 Allergy status to narcotic agent; Z99.3 Dependence on wheelchair
CPT/HCPCS: 36415; 71046; 76604; 80048; 80053; 83605; 83735; 83880; 84132; 84484; 85025; 85027; 85610; 85730; 93005; 94760; 96372; 96374; 96376; 99285

== ENCOUNTER 2024-02-08 05:06 | Inpatient (IN) | payer MEDICARE ==
[2024-02-08 05:58] LABS: Basophils # (A) 0.1 k/uL (0-0.2); Basophils % (A) 1 %; Eosinophils # (A) 0.7 k/uL (0-0.7); Eosinophils % (A) 7 %; HCT 31.4 % (34.0-46.0); Lymphocytes # (A) 2.4 k/uL (1.0-4.8); Lymphocytes % (A) 26 %; MCH 28.1 pg (25.0-35.0); MCHC 31.7 g/dL (31.0-37.0); MCV 88.7 fL (80.0-100.0); Monocytes # (A) 0.6 k/uL (0-1.0); Monocytes % (A) 7 %; Neutrophils # (A) 5.1 k/uL (1.3-7.7); Neutrophils % (A) 57 %; Platelet Count 270 k/uL (150-450); RBC 3.55 m/uL (3.80-5.40); RDW 14.2 % (11.5-15.5)
--- NOTE | 2024-02-08 06:09 | ED ---
SOB HPI - General Source: patient, EMS, RN notes reviewed Mode of arrival: EMS Limitations: no limitations - History of Present Illness MD Complaint: shortness of breath <Paige Gruber - Last Filed: 02/08/24 06:08> <Musa Cantu - Last Filed: 02/08/24 09:54> - General Chief Complaint: Shortness of Breath Stated Complaint: SOB Time Seen by Provider: 02/08/24 06:02 - History of Present Illness Initial Comments: Quick Note: This is an 83-year-old female who presents to the emergency department for shortness of breath. States that this started last night. She had some chest pain last night as well that has since resolved. Also reports increasing swelling in her legs. She wears 2L of oxygen at home, but has not had to turn this up. States that this feels like prior issues she has had with CHF. (Paige Gruber) This is a 83-year-old female who states she started having difficulty breathing last night. Patient states that got progressively worse throughout the day. Patient states she is also had some increased swelling to the legs. Patient states she has a long history of congestive heart failure. Patient denies any recent fever chills or cough. Patient denies any abdominal pain or back pain. (Musa Cantu) - Related Data Home Medications Medication Instructions Recorded Confirmed Simvastatin [Zocor] 20 mg PO HS 08/22/22 02/08/24 Cholecalciferol [Vitamin D3 (25 50 mcg PO DAILY@1200 02/28/23 02/08/24 Mcg = 1000 Iu)] Ubidecarenone [Co Q-10] 30 mg PO HS 09/06/23 02/08/24 calcitrioL 0.25 mcg PO SA 11/17/23 02/08/24 Apixaban [Eliquis] 2.5 mg PO BID 02/08/24 02/08/24 Furosemide [Lasix] 80 mg PO DAILY 02/08/24 02/08/24 amLODIPine [Norvasc] 10 mg PO HS 02/08/24 02/08/24 Allergies Allergy/AdvReac Type Severity Reaction Status Date / Time cephalexin Allergy Unknown Verified 02/08/24 08:15 ciprofloxacin [From Cipro] Allergy Unknown Verified 02/08/24 08:15 codeine Allergy Unknown Verified 02/08/24 08:15 Review of Systems ROS Other: All systems not noted in ROS Statement are negative. <Paige Gruber - Last Filed: 02/08/24 06:08> ROS Other: All systems not noted in ROS Statement are negative. <Musa Cantu - Last Filed: 02/08/24 09:54> ROS Statement: Those systems with pertinent positive or pertinent negative responses have been documented in the HPI. Past Medical History Past Medical History: Coronary Artery Disease (CAD), Heart Failure, Diabetes Mellitus, Hyperlipidemia, Hypertension, Renal Disease Additional Past Medical History / Comment(s): pacemaker for complete heart block, AVR History of Any Multi-Drug Resistant Organisms: None Reported Past Surgical History: Appendectomy, Cholecystectomy, Coronary Bypass/CABG, Hysterectomy, Pacemaker, Tonsillectomy Past Anesthesia/Blood Transfusion Reactions: No Reported Reaction Type of Cardiac Device: Permanent Pacemaker Device Placement Date:: 02/20/23 Past Psychological History: No Psychological Hx Reported Smoking Status: Former smoker Past Alcohol Use History: None Reported Past Drug Use History: None Reported - Past Family History Father History Unknown: Yes Family Medical History: COPD <Paige Gruber - Last Filed: 02/08/24 06:08> General Exam Limitations: no limitations <Paige Gruber - Last Filed: 02/08/24 06:08> <Musa Cantu - Last Filed: 02/08/24 09:54> - General Exam Comments Initial Comments: Visual Physical Exam Vital signs reviewed General: Well-appearing, nontoxic, no acute distress. Head: Normocephalic, atraumatic Eyes: PERRLA, EOMI ENT: Airway patent Chest: Nonlabored breathing Skin: No visual rash, normal skin tone Neuro: Alert and oriented 3 Musculoskeletal: No gross abnormalities (Paige Gruber) GENERAL: Patient is well-developed and well-nourished. Patient is nontoxic and well- hydrated and is in mild distress. ENT: Neck is soft and supple. No significant lymphadenopathy is noted. Oropharynx is clear. Moist mucous membranes. Neck has full range of motion without eliciting any pain. EYES: The sclera were anicteric and conjunctiva were pink and moist. Extraocular movements were intact and pupils were equal round and reactive to light. Eyelids were unremarkable. PULMONARY: Unlabored respirations. Good breath sounds bilaterally. Patient has crackles in the bilateral bases. CARDIOVASCULAR: There is a regular rate and rhythm without any murmurs gallops or rubs. ABDOMEN: Soft and nontender with normal bowel sounds. SKIN: Skin is clear with no lesions or rashes and otherwise unremarkable. NEUROLOGIC: Patient is alert and oriented x3. Cranial nerves II through XII are grossly intact. Motor and sensory are also intact. Normal speech, volume and content. Symmetrical smile. MUSCULOSKELETAL: Normal extremities with adequate strength and full range of motion. No lower extremity swelling or edema. No calf tenderness. LYMPHATICS: No significant lymphadenopathy is noted PSYCHIATRIC: Normal psychiatric evaluation. (Musa Cantu) Course Vital Signs 02/08/24 02/08/24 02/08/24 05:31 07:23 07:27 Temperature 97.5 F L 98.4 F Pulse Rate 61 62 Respiratory 20 24 22 Rate Blood Pressure 159/70 167/73 O2 Sat by Pulse 99 100 Oximetry 02/08/24 08:08 Temperature Pulse Rate 60 Respiratory 20 Rate Blood Pressure 163/60 O2 Sat by Pulse 100 Oximetry Medical Decision Making - Lab Data Result diagrams: 02/08/24 05:36 <Paige Gruber - Last Filed: 02/08/24 06:08> - Lab Data Result diagrams: 02/08/24 05:36 02/08/24 05:36 <Musa Cantu - Last Filed: 02/08/24 09:54> - Medical Decision Making I performed the QuickNote portion of this chart. Signed Paige Gruber PA-C. (Paige Gruber) Was pt. sent in by a medical professional or institution (MICHAEL Ramirez, TRAFFIC REPORTER, urgent care, hospital, or fdc...) When possible be specific @ -No Did you speak to anyone other than the patient for history (EMS, parent, family, police, friend...)? What history was obtained from this source @ -No Did you review nursing and triage notes (agree or disagree)? Why? @ -I reviewed and agree with nursing and triage notes Were old charts reviewed (outside hosp., previous admission, EMS record, old EKG, old radiological studies, urgent care reports/EKG's, fdc records)? Report findings @ -I compared the old chest x-ray with this chest x-ray and I saw no significant abnormality. I also compared lab work and the BMP was elevated but less than it had been in the past. Differential Diagnosis (chest pain, altered mental status, abdominal pain women, abdominal pain men, vaginal bleeding, weakness, fever, dyspnea, syncope, headache, dizziness, GI bleed, back pain, seizure, CVA, palpatations, mental health, musculoskeletal)? @ -Differential Dyspnea: Coronary syndrome, arrhythmia, tamponade, asthma, COPD, pulmonary embolism, pneumonia, pneumothorax, pulmonary effusion, anaphylaxis, diabetic ketoacidosis, flailed chest, pulmonary contusion, diaphragmatic rupture, anemia, neuromuscular, this is not meant to be an all-inclusive list. EKG interpreted by me (3pts min.). @ -As above X-rays interpreted by me (1pt min.). @ -Chest x-ray shows some pulmonary edema. CT interpreted by me (1pt min.). @ -None done U/S interpreted by me (1pt. min.). @ -None done What testing was considered but not performed or refused? (CT, X-rays, U/S, labs)? Why? @ -None What meds were considered but not given or refused? Why? @ -None Did you discuss the management of the patient with other professionals (professionals i.e. , PA, TRAFFIC REPORTER, lab, RT, psych nurse, addiction social worker, utility pipe layer, teacher, aerospace engineer officer armament, patient case coordinator)? Give summary @ -I spoke with Dr. Herrera and he agreed to admit the patient admit the patient and wrote admitting her Was smoking cessation discussed for >3mins.? @ -No Was critical care preformed (if so, how long)? @ -No Were there social determinants of health that impacted care today? How? (Homelessness, low income, unemployed, alcoholism, drug addiction, transportation, low edu. Level, literacy, decrease access to med. care, senior care, rehab)? @ -No Was there de-escalation of care discussed even if they declined (Discuss DNR or withdrawal of care, Hospice)? DNR status @ -No What co-morbidities impacted this encounter? (DM, HTN, Smoking, COPD, CAD, Cancer, CVA, ARF, Chemo, Hep., AIDS, mental health diagnosis, sleep apnea, morbid obesity)? @ -None Was patient admitted / discharged? Hospital course, mention meds given and route, prescriptions, significant lab abnormalities, going to OR and other pertinent info. @ -Patient had some pulmonary edema on the chest x-ray so I started the patient on Lasix. Continue Lasix on the floor. Patient also had COVID so I started the patient on Decadron and continue Decadron floor. Patient will be admitted to Dr. Herrera and I wrote admitting orders Undiagnosed new problem with uncertain prognosis? @ -No Drug Therapy requiring intensive monitoring for toxicity (Heparin, Nitro, Insulin, Cardizem)? @ -No Were any procedures done? @ -No Diagnosis/symptom? @ -COVID Acute, or Chronic, or Acute on Chronic? @ -Acute Uncomplicated (without systemic symptoms) or Complicated (systemic symptoms)? @ -Complicated Side effects of treatment? @ -No Exacerbation, Progression, or Severe Exacerbation? @ -No Poses a threat to life or bodily function? How? (Chest pain, [place], [place], pneumonia, PE, COPD, DKA, ARF, appy, cholecystitis, CVA, Diverticulitis, Homicidal, Suicidal, threat to staff... and all critical care pts) @ -Yes this can lead to hypoxia and endorgan dysfunction Diagnosis/symptom? @ -Pulmonary edema Acute, or Chronic, or Acute on Chronic? @ -Acute Uncomplicated (without systemic symptoms) or Complicated (systemic symptoms)? @ -Complicated Side effects of treatment? @ -None Exacerbation, Progression, or Severe Exacerbation] @ -No Poses a threat to life or bodily function? @ -Yes this can lead to endorgan dysfunction secondary to hypoxia (Musa Cantu) - Lab Data Lab Results 02/08/24 02/08/24 02/08/24 Range/Units 05:36 05:36 05:36 WBC 9.0 (3.8-10.6) k/uL RBC 3.55 L (3.80-5.40) m/uL Hgb 10.0 L (11.4-16.0) gm/dL Hct 31.4 L (34.0-46.0) % MCV 88.7 (80.0-100.0) fL MCH 28.1 (25.0-35.0) pg MCHC 31.7 (31.0-37.0) g/dL RDW 14.2 (11.5-15.5) % Plt Count 270 (150-450) k/uL MPV 9.0 Neutrophils % 57 % Lymphocytes % 26 % Monocytes % 7 % Eosinophils % 7 % Basophils % 1 % Neutrophils # 5.1 (1.3-7.7) k/uL Lymphocytes # 2.4 (1.0-4.8) k/uL Monocytes # 0.6 (0-1.0) k/uL Eosinophils # 0.7 (0-0.7) k/uL Basophils # 0.1 (0-0.2) k/uL PT 10.3 (10.0-12.5) sec INR 0.9 (<1.2) APTT 26.4 (22.0-30.0) sec Sodium 137 (137-145) mmol/L Potassium 5.3 H (3.5-5.1) mmol/L Chloride 102 (98-107) mmol/L Carbon Dioxide 27 (22-30) mmol/L Anion Gap 8 mmol/L BUN 98 H (7-17) mg/dL Creatinine 2.85 H (0.52-1.04) mg/dL Est GFR (CKD-EPI)AfAm 17 (>60 ml/min/1.73 sqM) Est GFR (CKD-EPI)NonAf 15 (>60 ml/min/1.73 sqM) Glucose 117 H (74-99) mg/dL Plasma Lactic Acid [place] (0.7-2.0) mmol/L Calcium 8.8 (8.4-10.2) mg/dL Magnesium 2.1 (1.6-2.3) mg/dL Total Bilirubin 0.3 (0.2-1.3) mg/dL AST 24 (14-36) U/L ALT 14 (4-34) U/L Alkaline Phosphatase 137 H (38-126) U/L Troponin I (0.000-0.034) ng/mL NT-Pro-B Natriuret Pep 4960 pg/mL Total Protein 6.8 (6.3-8.2) g/dL Albumin 3.5 (3.5-5.0) g/dL Influenza Type A (PCR) (Not Detectd) Influenza Type B (PCR) (Not Detectd) RSV (PCR) (Not Detectd) SARS-CoV-2 (PCR) (Not Detectd) 02/08/24 02/08/24 02/08/24 Range/Units 05:36 05:36 06:24 WBC (3.8-10.6) k/uL RBC (3.80-5.40) m/uL Hgb (11.4-16.0) gm/dL Hct (34.0-46.0) % MCV (80.0-100.0) fL MCH (25.0-35.0) pg MCHC (31.0-37.0) g/dL RDW (11.5-15.5) % Plt Count (150-450) k/uL MPV Neutrophils % % Lymphocytes % % Monocytes % % Eosinophils % % Basophils % % Neutrophils # (1.3-7.7) k/uL Lymphocytes # (1.0-4.8) k/uL Monocytes # (0-1.0) k/uL Eosinophils # (0-0.7) k/uL Basophils # (0-0.2) k/uL PT (10.0-12.5) sec INR (<1.2) APTT (22.0-30.0) sec Sodium (137-145) mmol/L Potassium (3.5-5.1) mmol/L Chloride (98-107) mmol/L Carbon Dioxide (22-30) mmol/L Anion Gap mmol/L BUN (7-17) mg/dL Creatinine (0.52-1.04) mg/dL Est GFR (CKD-EPI)AfAm (>60 ml/min/1.73 sqM) Est GFR (CKD-EPI)NonAf (>60 ml/min/1.73 sqM) Glucose (74-99) mg/dL Plasma Lactic Acid [place] 1.1 (0.7-2.0) mmol/L Calcium (8.4-10.2) mg/dL Magnesium (1.6-2.3) mg/dL Total Bilirubin (0.2-1.3) mg/dL AST (14-36) U/L ALT (4-34) U/L Alkaline Phosphatase (38-126) U/L Troponin I 0.032 (0.000-0.034) ng/mL NT-Pro-B Natriuret Pep pg/mL Total Protein (6.3-8.2) g/dL Albumin (3.5-5.0) g/dL Influenza Type A (PCR) Not Detected (Not Detectd) Influenza Type B (PCR) Not Detected (Not Detectd) RSV (PCR) Not Detected (Not Detectd) SARS-CoV-2 (PCR) Detected A (Not Detectd) Disposition <Paige Gruber - Last Filed: 02/08/24 06:08> Time of Disposition: 09:52 <Musa Cantu - Last Filed: 02/08/24 09:54> Clinical Impression: Acute pulmonary edema, COVID Disposition: ADMITTED IP TO THIS HOSP Referrals: Musa Feliciano MD [Primary Care Provider] - 1-2 days
[2024-02-08 06:10] LABS: INR 0.9 (<1.2); Partial Thromboplastin Time 26.4 sec (22.0-30.0); Prothrombin Time 10.3 sec (10.0-12.5)
[2024-02-08 06:15] LABS: ALT 14 U/L (4-34); AST 24 U/L (14-36); African American GFR (CKD) 17 (>60 ml/min/1.73 sqM); Albumin 3.5 g/dL (3.5-5.0); Alkaline Phosphatase 137 U/L (38-126); Anion Gap 8 mmol/L; Blood Urea Nitrogen 98 mg/dL (7-17); Calcium 8.8 mg/dL (8.4-10.2); Carbon Dioxide 27 mmol/L (22-30); Chloride 102 mmol/L (98-107); Glucose 117 mg/dL (74-99); Magnesium 2.1 mg/dL (1.6-2.3); Non-African American GFR(CKD) 15 (>60 ml/min/1.73 sqM); Potassium 5.3 mmol/L (3.5-5.1); Sodium 137 mmol/L (137-145); Total Bilirubin 0.3 mg/dL (0.2-1.3); Total Protein 6.8 g/dL (6.3-8.2)
[2024-02-08 06:22] LABS: NT-Pro-B-Type Natriuretic Pept 4960 pg/mL
--- NOTE | 2024-02-08 07:28 | XR ---
EXAMINATION TYPE: XR chest 2V DATE OF EXAM: 02/08/2024 COMPARISON: 11/22/2023 HISTORY: 83 year-old female shortness of breath, difficulty breathing, history of CHF TECHNIQUE: AP and lateral views FINDINGS: Low lung volumes and cardiovascular markings and mild interstitial density. Heart is unenlarged. Medi an sternotomy wires and post-CABG clips. Dense mitral annular calcifications. Ongoing small to modera te left pleural effusion. Left anterior chest wall pacemaker generator with right atrial and right ve ntricular leads. Sternotomy clips. Degenerative change of the bilateral glenohumeral joints. IMPRESSION: Hypoventilatory changes and suspected pulmonary vascular congestion. Continued small to moderate left pleural effusion with adjacent atelectasis and/or consolidation.
[2024-02-08] MEDS: DEXAMETHASONE SOD PHOSPHATE 10 MG/ML 1 ML VIAL IVP SCH (08:01)
[2024-02-08] MEDS: FUROSEMIDE 10 MG/ML 10 ML VIAL IV STA (08:10)
[2024-02-08] MEDS: DEXAMETHASONE SOD PHOSPHATE 10 MG/ML 1 ML VIAL IVP STA (08:11)
[2024-02-08] MEDS: ONDANSETRON 4 MG/2 ML VIAL IVP STA (08:19)
[2024-02-08] MEDS: KETOROLAC 15 MG/ML 1 ML VIAL IVP STA ×2 (09:40→15:32)
--- NOTE | 2024-02-08 11:22 | P.HPIM ---
History of Present Illness H&P Date: 02/08/24 Chief Complaint: dyspnea 83-year-old woman with a medical history of CAD status post CABG, complete heart block status post dual-chamber pacemaker, diastolic heart failure, chronic hypoxemic respiratory failure requiring 2 L of nasal cannula, chronic kidney disease stage V, diabetes/hypertension/hyperlipidemia presented to the emergency room with dyspnea. Patient says that she started to have acute shortness of breath last night when she was laying down to go to sleep. She typically inclines her bed to go to sleep and felt that shortly after lying down she felt significant dyspnea. Her symptoms were associated with nausea. Patient had been noting that her lower extremity swelling has been getting worse over the last few days. She further reports dull left-sided chest pain, which is not positional, and which has resolved at this time. She goes on to deny fevers, chills, emesis, palpitations, syncope, abdominal pain, diarrhea, dysuria, dyschezia, numbness/weakness of extremities. In the emergency room, patient was afebrile, 159/70, heart rate 60, 99% on 2 L of nasal cannula. CBC demonstrates anemia down to 10. Basic metabolic panel shows potassium of 5.3, BUN of 98, creatinine 2.85, EGFR of 15, which is her baseline. Liver function test show mild elevation of alkaline phosphatase of 137, otherwise unremarkable. Troponins 0.032. BNP was 4960. Influenza A, B, RSV, were negative. COVID was positive. Chest x-ray demonstrates trace left-sided pleural effusion as well as evidence of vascular congestion, personally interpreted. EKG demonstrates ventricular paced rhythm without evidence of ischemia, personally interpreted. Case was discussed with the emergency room provider and decision was made to move the patient to the hospital for heart failure exacerbation with the possibility of a component of COVID. All Systems reviewed and pertinent positives and negatives noted in HPI, all other symptoms are negative Gen: In NAD, non-toxic HEENT: normocephalic, atraumatic, hearing acuity is intant, mucous membranes moist CVS: perfusing all extremities well, no pitting edema, Respiratory: symmetric chest expansion, no accessory muscle use, GI: soft, NTTP, ND, : no suprapubic tenderness, no CVA tenderness MSK/Derm: no rashes, cyanosis Neuro: CN II-XII intact, no motor weakness, Psych: cooperative, euthymic mood, judgment and insight is intact Labs and imaging reviewed as above Assessment/plan: Dyspnea/orthopnea Acute on chronic diastolic heart failure exacerbation Chronic hypoxemic respiratory failure requiring 2 L of nasal cannula COVID-positive Chronic kidney disease, stage V -Admit to inpatient with telemetry -Transition patient's home Lasix 80 mg to IV Lasix 80 mg, given patient's borderline dialysis need, will consult nephrology -Cardiology was consulted by the emergency room -Daily weights, strict ins and outs, Ordoñez catheter was ordered by the ER -Last echocardiogram was in August 2023, will reorder -Agree with heart healthy diet, consider fluid restriction -Oxygen as needed -Contact/droplet precautions -Discontinue dexamethasone for now given patient's improvement after Lasix -It is not clear why patient's aspirin was discontinued and patient was started on apixaban between last admission and this one, further investigation needs to be done, discussed this with pharmacy CAD Complete heart block status post pacemaker Hypertension Hyperlipidemia Diabetes type 2 -Home medications reviewed and reconciled -Sliding scale insulin was ordered Pt is Full Code DVT PPx presently with apixaban Past Medical History Past Medical History: Coronary Artery Disease (CAD), Heart Failure, Diabetes Mellitus, Hyperlipidemia, Hypertension, Renal Disease Additional Past Medical History / Comment(s): pacemaker for complete heart block, AVR History of Any Multi-Drug Resistant Organisms: None Reported Past Surgical History: Appendectomy, Cholecystectomy, Coronary Bypass/CABG, Hysterectomy, Pacemaker, Tonsillectomy Past Anesthesia/Blood Transfusion Reactions: No Reported Reaction Type of Cardiac Device: Permanent Pacemaker Device Placement Date:: 02/20/23 Past Psychological History: No Psychological Hx Reported Smoking Status: Former smoker Past Alcohol Use History: None Reported Past Drug Use History: None Reported - Past Family History Father History Unknown: Yes Family Medical History: COPD Medications and Allergies Home Medications Medication Instructions Recorded Confirmed Type Simvastatin [Zocor] 20 mg PO HS 08/22/22 02/08/24 History Cholecalciferol [Vitamin D3 (25 50 mcg PO DAILY@1200 02/28/23 02/08/24 History Mcg = 1000 Iu)] Ubidecarenone [Co Q-10] 30 mg PO HS 09/06/23 02/08/24 History calcitrioL 0.25 mcg PO SA 11/17/23 02/08/24 History Apixaban [Eliquis] 2.5 mg PO BID 02/08/24 02/08/24 History Furosemide [Lasix] 80 mg PO DAILY 02/08/24 02/08/24 History amLODIPine [Norvasc] 10 mg PO HS 02/08/24 02/08/24 History Allergies Allergy/AdvReac Type Severity Reaction Status Date / Time cephalexin Allergy Unknown Verified 02/08/24 08:15 ciprofloxacin [From Cipro] Allergy Unknown Verified 02/08/24 08:15 codeine Allergy Unknown Verified 02/08/24 08:15 Physical Exam Osteopathic Statement: *. No significant issues noted on an osteopathic structural exam other than those noted in the History and Physical/Consult. Vitals: Vital Signs Temp Pulse Resp BP Pulse Ox 02/08/24 09:40 60 18 133/55 99 02/08/24 08:08 60 20 163/60 100 02/08/24 07:27 22 02/08/24 07:23 98.4 F 62 24 167/73 100 02/08/24 05:31 97.5 F L 61 20 159/70 99 Intake and Output 02/07/24 02/08/24 02/08/24 22:59 06:59 14:59 Output Total 500 Balance -500 Output: Urine 500 Uretheral (Ordoñez) 500 Other: Weight 58.967 kg Results CBC & Chem 7: 02/08/24 05:36 02/08/24 05:36 Labs: Abnormal Lab Results - Last 24 Hours (Table) 02/08/24 02/08/24 02/08/24 Range/Units 05:36 05:36 06:24 RBC 3.55 L (3.80-5.40) m/uL Hgb 10.0 L (11.4-16.0) gm/dL Hct 31.4 L (34.0-46.0) % Potassium 5.3 H (3.5-5.1) mmol/L BUN 98 H (7-17) mg/dL Creatinine 2.85 H (0.52-1.04) mg/dL Glucose 117 H (74-99) mg/dL Alkaline Phosphatase 137 H (38-126) U/L SARS-CoV-2 (PCR) Detected A (Not Detectd)
[2024-02-08 11:45] LABS: Glucose,Whole Blood 159 mg/dL (70-110)
[2024-02-08] MEDS: CHOLECALCIFEROL 25 MCG (1000 IU) TABLET PO SCH (12:07)
[2024-02-08] MEDS: INSULIN ASPART (NovoLOG) 100 UNIT/ML VIAL SQ SCH (12:18)
--- NOTE | 2024-02-08 14:22 | P.CRDCN ---
History of Present Illness Consult date: 02/08/24 Consult reason: congestive heart failure History of present illness: History of present illness: This is an 83-year-old female patient of Dr. Tinajero with past medical history of coronary artery disease s/p CABG, hypertension, dyslipidemia, complete heart block status post pacemaker implantation, chronic diastolic heart failure, chronic left pleural effusion. Patient states that last night about 11 PM she started having difficulty in breathing but it is improved now. She recently saw nephrology and amlodipine was increased and she states she was told she was ready for dialysis. She complains of cough with clear sputum production. Positive lower extremity edema. No fever or chills. No lightheadedness or dizziness. Patient has been started on IV Lasix 80 mg daily. She feels that she has had improvement already with diuresing. She also gives history that she had a blister on the left lower extremity and Dr. Mcrae opened it on Monday. She has a dressing in place there. EKG ventricularly paced rhythm. Chest x-ray: Hypoventilatory changes with suspected pulmonary vascular congestion. Small to moderate left pleural effusion with adjacent atelectasis and consolidation. WBC 9, hemoglobin 10, platelet count 270. INR 0.9. Sodium 137, potassium 5.3, BUN 98 creatinine 2.85. Magnesium 2.1. Alkaline phosphatase 137 otherwise liver function test are normal. Troponin negative x 1. proBNP 4960. Influenza A, influenza B, RSV not detected. COVID-19 detected. Home cardiac medications: Amlodipine 10 mg at bedtime, Eliquis 2.5 mg twice daily, Lasix 80 mg daily, Zocor 20 mg at bedtime. Echocardiogram performed 09/07/2023 reveals fair systolic function, EF 50 to 55%, atypical septal motion, moderate concentric left ventricular hypertrophy, mild to moderate pulmonary hypertension, calcified mitral stenosis with restriction of the thickened mitral valve leaflets, aortic valve sclerosis, mild stenosis, mild to moderate mitral regurgitation. Interrogation of pacemaker 11/29/2023 revealed atrial fibrillation with burden of 54%. Review Of Systems: At the time of my exam: CONSTITUTIONAL: Denies fever or chills. HEENT: Denies blurred vision, vision changes, or eye pain. Denies hemoptysis CARDIOVASCULAR: Denies chest pain. Denies orthopnea. Denies PND. Denies palpitations RESPIRATORY: Reports shortness of breath. Reports lower extremity edema. Reports cough with clear sputum. GASTROINTESTINAL: Denies abdominal pain. Denies nausea or vomiting. HEMATOLOGIC: Denies bleeding disorders. GENITOURINARY: Denies any blood in urine. SKIN: Denies pruitis. Denies rash. Physical examination: Gen: This is an 83-year-old female in no acute distress VS: reviewed blood pressure 162/64, heart rate 60, pulse ox 99% on room air. HEENT: Head is atraumatic, normocephalic. Pupils equal, round. Sclerae is anicteric. NECK: Supple. No JVD. LUNGS: Diminished breath sounds. No intercostal retractions. HEART: Regular rate and rhythm. Systolic murmur. ABDOMEN: Soft No tenderness. EXTREMITIES: 1+ pedal edema. No calf tenderness. NEUROLOGICAL: Patient is awake, alert and oriented x3. Assessment: COVID-19 Acute diastolic heart failure Coronary artery disease previous CABG Hypertension Dyslipidemia Valvular heart disease with mild aortic stenosis, mild to moderate mitral regurgitation History of complete heart block status post permanent pacemaker Chronic kidney disease Plan: Resume patient's home cardiac medications Continue IV Lasix 80 mg daily Monitor BERNADETTE, daily weights, electrolytes and renal function Obtain 2-D echocardiogram and Doppler study to assess cardiac structure and function Further recommendations to follow based upon clinical course Thank you kindly for this consultation. Nurse practitioner note has been reviewed, I agree with documented findings and plan of care. Patient was seen and examined. Past Medical History Past Medical History: Coronary Artery Disease (CAD), Heart Failure, Diabetes Mellitus, Hyperlipidemia, Hypertension, Renal Disease Additional Past Medical History / Comment(s): pacemaker for complete heart blo ck, AVR History of Any Multi-Drug Resistant Organisms: None Reported Past Surgical History: Appendectomy, Cholecystectomy, Coronary Bypass/CABG, Hysterectomy, Pacemaker, Tonsillectomy Past Anesthesia/Blood Transfusion Reactions: No Reported Reaction Type of Cardiac Device: Permanent Pacemaker Device Placement Date:: 02/20/23 Past Psychological History: No Psychological Hx Reported Smoking Status: Former smoker Past Alcohol Use History: None Reported Past Drug Use History: None Reported - Past Family History Father History Unknown: Yes Family Medical History: COPD Medications and Allergies Home Medications Medication Instructions Recorded Confirmed Type Simvastatin [Zocor] 20 mg PO HS 08/22/22 02/08/24 History Cholecalciferol [Vitamin D3 (25 50 mcg PO DAILY@1200 02/28/23 02/08/24 History Mcg = 1000 Iu)] Ubidecarenone [Co Q-10] 30 mg PO HS 09/06/23 02/08/24 History calcitrioL 0.25 mcg PO SA 11/17/23 02/08/24 History Apixaban [Eliquis] 2.5 mg PO BID 02/08/24 02/08/24 History Furosemide [Lasix] 80 mg PO DAILY 02/08/24 02/08/24 History amLODIPine [Norvasc] 10 mg PO HS 02/08/24 02/08/24 History Allergies Allergy/AdvReac Type Severity Reaction Status Date / Time cephalexin Allergy Unknown Verified 02/08/24 08:15 ciprofloxacin [From Cipro] Allergy Unknown Verified 02/08/24 08:15 codeine Allergy Unknown Verified 02/08/24 08:15 Physical Exam Vitals: Vital Signs Temp Pulse Resp BP Pulse Ox 02/08/24 12:21 60 18 162/64 99 02/08/24 11:00 60 18 156/62 99 02/08/24 09:40 60 18 133/55 99 02/08/24 08:08 60 20 163/60 100 02/08/24 07:27 22 02/08/24 07:23 98.4 F 62 24 167/73 100 02/08/24 05:31 97.5 F L 61 20 159/70 99 Intake and Output 02/07/24 02/08/24 02/08/24 22:59 06:59 14:59 Output Total 500 Balance -500 Output: Urine 500 Uretheral (Ordoñez) 500 Other: Weight 58.967 kg Results 02/08/24 05:36 02/08/24 05:36 Cardiac Enzymes 02/08/24 02/08/24 Range/Units 05:36 05:36 AST 24 (14-36) U/L Troponin I 0.032 (0.000-0.034) ng/mL Coagulation 02/08/24 Range/Units 05:36 PT 10.3 (10.0-12.5) sec APTT 26.4 (22.0-30.0) sec CBC 02/08/24 Range/Units 05:36 WBC 9.0 (3.8-10.6) k/uL RBC 3.55 L (3.80-5.40) m/uL Hgb 10.0 L (11.4-16.0) gm/dL Hct 31.4 L (34.0-46.0) % Plt Count 270 (150-450) k/uL Comprehensive Metabolic Panel 02/08/24 Range/Units 05:36 Sodium 137 (137-145) mmol/L Potassium 5.3 H (3.5-5.1) mmol/L Chloride 102 (98-107) mmol/L Carbon Dioxide 27 (22-30) mmol/L BUN 98 H (7-17) mg/dL Creatinine 2.85 H (0.52-1.04) mg/dL Glucose 117 H (74-99) mg/dL Calcium 8.8 (8.4-10.2) mg/dL AST 24 (14-36) U/L ALT 14 (4-34) U/L Alkaline Phosphatase 137 H (38-126) U/L Total Protein 6.8 (6.3-8.2) g/dL Albumin 3.5 (3.5-5.0) g/dL Current Medications Generic Name Dose Route Start Last Admin Trade Name Freq PRN Reason Stop Dose Admin Amlodipine Besylate 10 mg 02/08/24 21:00 Amlodipine 10 Mg Tab PO HS FAUSTO Apixaban 2.5 mg 02/08/24 21:00 Apixaban 2.5 Mg Tablet PO BID [facility] Protocol Atorvastatin Calcium 10 mg 02/08/24 21:00 Atorvastatin 10 Mg Tab PO HS FAUSTO Calcitriol 0.25 mcg 02/10/24 09:00 Calcitriol 0.25 Mcg Cap PO SA FAUSTO Cholecalciferol 50 mcg 02/08/24 12:00 02/08/24 12:07 Cholecalciferol 25 Mcg (1000 Iu) Tablet PO 50 mcg DAILY@1200 FAUSTO Administration Furosemide 80 mg 02/09/24 09:00 Furosemide 10 Mg/Ml 10 Ml Vial IV DAILY FAUSTO Insulin Aspart 0 unit 02/08/24 12:30 02/08/24 12:18 Insulin Aspart (Novolog) 100 Unit/Ml Vial SQ 2 unit AC-TID FAUSTO Administration Protocol Intake and Output 02/07/24 02/08/24 02/08/24 22:59 06:59 14:59 Output Total 500 Balance -500 Output: Urine 500 Uretheral (Ordoñez) 500 Other: Weight 58.967 kg 02/08/24 05:36 02/08/24 05:36
[2024-02-08] MEDS ORDERED: FUROSEMIDE 40 MG TAB PO SCH (16:00)
[2024-02-08] MEDS ORDERED: FUROSEMIDE 10 MG/ML 4 ML VIAL IV SCH (16:00)
--- NOTE | 2024-02-08 17:19 | CA ---
Transthoracic Echo Report Name: Felicitas Nielsen Age: 83 Gender: F : 1940 Exam Date: 02/08/2024 14:43 Exam Location: [facility] Ht (in): 68 Wt (lb): 130 Ordering Physician: Frida Herrera MD Attending/Referring Phys: Manager Call Center Kiara Anand RCS Procedure CPT: Indications: Heart failure Cardiac Hx: Technical Quality: Technically difficult study Contrast 1: Total Dose (mL): Contrast 2: Total Dose (mL): MEASUREMENTS (Male / Female) Normal Values 2D ECHO LV Diastolic Diameter PLAX 5.1 cm 4.2 - 5.9 / 3.9 - 5.3 cm LV Systolic Diameter PLAX 3.2 cm IVS Diastolic Thickness 0.8 cm 0.6 - 1.0 / 0.6 - 0.9 cm LVPW Diastolic Thickness 0.8 cm 0.6 - 1.0 / 0.6 - 0.9 cm LV Relative Wall Thickness 0.3 LVOT Diameter 1.9 cm LA Volume 88.9 cm??? 18 - 58 / 22 - 52 cm??? LA Volume Index 53.0 cm???/m??? 16 - 28 cm???/m??? DOPPLER AV Peak Velocity 248.0 cm/s AV Peak Gradient 24.6 mmHg AV Mean Velocity 163.2 cm/s AV Mean Gradient 12.4 mmHg AV Velocity Time Integral 53.3 cm LVOT Peak Velocity 126.7 cm/s LVOT Peak Gradient 6.4 mmHg LVOT Velocity Time Integral 27.3 cm LVOT Stroke Volume 75.2 cm??? LVOT Stroke Volume Index 44.2 ml/m??? LVOT Cardiac Index 2782.6 cm???/min???m??? AV Area Cont Eq vti 1.4 cm??? AV Area Cont Eq pk 1.4 cm??? MV Peak Velocity 246.9 cm/s MV Peak Gradient 24.4 mmHg MV Mean Velocity 115.5 cm/s MV Mean Gradient 7.0 mmHg MV Velocity Time Integral 66.9 cm TR Peak Velocity 329.8 cm/s TR Peak Gradient 43.5 mmHg Right Atrial Pressure 5.0 mmHg Pulmonary Artery Systolic Pressu 48.5 mmHg Right Ventricular Systolic Press 48.5 mmHg PV Peak Velocity 195.5 cm/s PV Peak Gradient 15.3 mmHg FINDINGS Left Ventricle Left ventricular ejection fraction is estimated at 60-65 %. Left ventricular wall thickness normal. Left ventricular cavity size normal. No obvious regional wall motion abnormalities. Right Ventricle Right ventricle not well visualized. Mildly elevate right ventricular systolic function. Right Atrium Right atrium not well visualized. Left Atrium Severely increased left atrial volume. Mildly increased left atrial area. Mitral Valve Mitral valve repair. Thickend mitral valve. Moderate mitral stenosis with a mean gradient of 7 mmHg. Mild mitral regurgitation. Aortic Valve Normally functioning bioprosthetic aortic valve without stenosis with a peak velocity of 2.48 m/s, peak gradient 25 mmHg, mean gradient 12 mmHg, and estimated aortic valve area of 1.4 cm???. Tricuspid Valve Tricuspid valve not well visualized. No tricuspid stenosis. Mild tricuspid regurgitation. Pulmonic Valve Structurally normal pulmonic valve. No pulmonic stenosis. No pulmonic regurgitation. Pericardium No pericardial effusion. Aorta Aortic annulus normal. Ascending aorta not well visualized. CONCLUSIONS Normal LV function Moderate mitral stenosis with heavily calcified mitral valve with mild mitral regurgitation Normally functioning bioprosthetic valve with a peak gradient of 25 mm and a mean gradient of 12 mm in the aortic position Previewed by: Dr. Roland Alan MD (Electronically Signed) Final Date: 08 February 2024 17:18
[2024-02-08 18:02] LABS: Glucose,Whole Blood 242 mg/dL (70-110)
[2024-02-08] MEDS: ACETAMINOPHEN TAB 325 MG TAB PO PRN (19:26)
[2024-02-08] MEDS: APIXABAN 2.5 MG TABLET PO SCH (20:42)
[2024-02-08] MEDS: ATORVASTATIN 10 MG TAB PO SCH (20:42)
[2024-02-08] MEDS: amLODIPine 10 MG TAB PO SCH (20:42)
[2024-02-08] MEDS ORDERED: NON FORMULARY DRUG (Ubidecarenone [Co Q-10] 30 MG Capsule) PO SCH (21:00)
[2024-02-09 05:47] LABS: Glucose,Whole Blood 149 mg/dL (70-110)
[2024-02-09] MEDS: FUROSEMIDE 10 MG/ML 10 ML VIAL IV SCH ×2 (07:58→20:30)
[2024-02-09 08:29] LABS: Basophils % (A) 0 %; Eosinophils # (A) 0.1 k/uL (0-0.7); Eosinophils % (A) 1 %; HCT 30.3 % (34.0-46.0); HGB 9.4 gm/dL (11.4-16.0); Lymphocytes # (A) 2.1 k/uL (1.0-4.8); Lymphocytes % (A) 19 %; MCH 27.9 pg (25.0-35.0); MCV 89.8 fL (80.0-100.0); Mean Platelet Volume 9.1; Monocytes # (A) 0.8 k/uL (0-1.0); Monocytes % (A) 7 %; Neutrophils # (A) 7.6 k/uL (1.3-7.7); Neutrophils % (A) 70 %; Platelet Count 280 k/uL (150-450); RBC 3.37 m/uL (3.80-5.40); RDW 14.3 % (11.5-15.5); WBC 10.8 k/uL (3.8-10.6)
--- NOTE | 2024-02-09 09:41 | P.PN ---
Subjective Progress Note Date: 02/09/24 Consult reason: congestive heart failure History of present illness: History of present illness: This is an 83-year-old female patient of Dr. Tinajero with past medical history of coronary artery disease s/p CABG, hypertension, dyslipidemia, complete heart blo ck status post pacemaker implantation, chronic diastolic heart failure, chronic left pleural effusion. Patient states that last night about 11 PM she started having difficulty in breathing but it is improved now. She recently saw nephrology and amlodipine was increased and she states she was told she was ready for dialysis. She complains of cough with clear sputum production. Positive lower extremity edema. No fever or chills. No lightheadedness or dizziness. Patient has been started on IV Lasix 80 mg daily. She feels that she has had improvement already with diuresing. She also gives history that she had a blister on the left lower extremity and Dr. Mcrae opened it on Monday. She has a dressing in place there. EKG ventricularly paced rhythm. Chest x-ray: Hypoventilatory changes with suspected pulmonary vascular congestion. Small to moderate left pleural effusion with adjacent atelectasis and consolidation. WBC 9, hemoglobin 10, platelet count 270. INR 0.9. Sodium 137, potassium 5.3, BUN 98 creatinine 2.85. Magnesium 2.1. Alkaline phosphatase 137 otherwise liver function test are normal. Troponin negative x 1. proBNP 4960. Influenza A, influenza B, RSV not detected. COVID-19 detected. Home cardiac medications: Amlodipine 10 mg at bedtime, Eliquis 2.5 mg twice daily, Lasix 80 mg daily, Zocor 20 mg at bedtime. Echocardiogram performed 09/07/2023 reveals fair systolic function, EF 50 to 55%, atypical septal motion, moderate concentric left ventricular hypertrophy, mild to moderate pulmonary hypertension, calcified mitral stenosis with restriction of the thickened mitral valve leaflets, aortic valve sclerosis, mild stenosis, mild to moderate mitral regurgitation. Interrogation of pacemaker 11/29/2023 revealed atrial fibrillation with burden of 54%. 02/08 Patient seen today on the [facility] floor. She states she is feeling much better with less edema. Blood pressure 153/65, heart rate in the 60s, pulse ox 99% on 2 L. Overall blood pressure readings are little on the high side. She is currently on IV Lasix 80 mg daily. Patient has a negative fluid balance. Repeat blood work reveals hemoglobin 9.4. WBC 10.8. Chemistry is not available at the time of this dictation. Echocardiogram reveals EF of 60 to 65%. Moderate mitral stenosis with heavy calcified mitral valve with mild mitral regurgitation. Normally functioning bioprosthetic valve with peak gradient of 25 mm and a mean gradient of 12 mm in the aortic position. Results of the echocardiogram reviewed with the patient. Physical examination: Gen: This is an 83-year-old female in no acute distress VS: reviewed HEENT: Head is atraumatic, normocephalic. Pupils equal, round. Sclerae is anicteric. NECK: Supple. No JVD. LUNGS: Diminished breath sounds. No intercostal retractions. HEART: Regular rate and rhythm. Systolic murmur. ABDOMEN: Soft No tenderness. EXTREMITIES: Minimal pedal edema. No calf tenderness. Dressing in place to the wound left lower leg medial side. NEUROLOGICAL: Patient is awake, alert and oriented x3. Assessment: COVID-19 Acute diastolic heart failure Coronary artery disease previous CABG Hypertension Dyslipidemia Valvular heart disease with mild aortic stenosis, mild to moderate mitral regurgitation History of complete heart block status post permanent pacemaker Chronic kidney disease Plan: Resume patient's home cardiac medications Continue IV Lasix 80 mg daily for 1 more day and transition to oral tomorrow Monitor BERNADETTE, daily weights, electrolytes and renal function Further recommendations to follow based upon clinical course Nurse practitioner note has been reviewed, I agree with documented findings and plan of care. Patient was seen and examined. Objective - Vital Signs Vital signs: Vital Signs Temp 98.1 F 02/09/24 08:00 Pulse 60 02/09/24 08:00 Resp 17 02/09/24 08:00 BP 153/65 02/09/24 08:00 Pulse Ox 99 02/09/24 08:00 FiO2 Intake & Output 02/08/24 02/09/24 02/09/24 18:59 06:59 18:59 Output Total 1500 200 Balance -1500 -200 Weight 57.5 kg Output: Urine 1500 200 Uretheral (Ordoñez) 500 Other: Voiding Method External Catheter # Bowel Movements 1 - Labs CBC & Chem 7: 02/09/24 07:50 02/08/24 05:36 Labs: Abnormal Lab Results - Last 24 Hours (Table) 02/08/24 02/08/24 02/09/24 Range/Units 11:43 17:59 05:45 POC Glucose (mg/dL) 159 H 242 H 149 H (70-110) mg/dL
--- NOTE | 2024-02-09 11:07 | P.NPCON ---
History of Present Illness - Reason for Consult chronic renal failure - History of Present Illness patient is an 83-year-old female with history of chronic kidney disease NKF stage IV with baseline creatinine around 2.4-2.6 mg/dL. Patient is admitted to the hospital with complaints of shortness of breath and increased weakness. Patient also complains of increased lower extremity swelling. Patient tested positive for COVID-19. chest x-ray shows significant pulmonary vascular congestion and pleural effu mariya. Patient is currently being diuresed. Renal function is at baseline with serum creatinine at 2.8 mg/dL. Overall patient states she is feeling better. urine output noted at 1700 mL. Patient has an external catheter. Review of Systems as per HPI Past Medical History Past Medical History: Coronary Artery Disease (CAD), Heart Failure, Diabetes Mellitus, Hyperlipidemia, Hypertension, Renal Disease Additional Past Medical History / Comment(s): pacemaker for complete heart block, AVR History of Any Multi-Drug Resistant Organisms: None Reported Past Surgical History: Appendectomy, Cholecystectomy, Coronary Bypass/CABG, Hysterectomy, Pacemaker, Tonsillectomy Past Anesthesia/Blood Transfusion Reactions: No Reported Reaction Type of Cardiac Device: Permanent Pacemaker Device Placement Date:: 02/20/23 Past Psychological History: No Psychological Hx Reported Smoking Status: Former smoker Past Alcohol Use History: None Reported Past Drug Use History: None Reported - Past Family History Father History Unknown: Yes Family Medical History: COPD Medications and Allergies Home Medications Medication Instructions Recorded Confirmed Type Simvastatin [Zocor] 20 mg PO HS 08/22/22 02/08/24 History Cholecalciferol [Vitamin D3 (25 50 mcg PO DAILY@1200 02/28/23 02/08/24 History Mcg = 1000 Iu)] Ubidecarenone [Co Q-10] 30 mg PO HS 09/06/23 02/08/24 History calcitrioL 0.25 mcg PO SA 11/17/23 02/08/24 History Apixaban [Eliquis] 2.5 mg PO BID 02/08/24 02/08/24 History Furosemide [Lasix] 80 mg PO DAILY 02/08/24 02/08/24 History amLODIPine [Norvasc] 10 mg PO HS 02/08/24 02/08/24 History Allergies Allergy/AdvReac Type Severity Reaction Status Date / Time cephalexin Allergy Unknown Verified 02/08/24 08:15 ciprofloxacin [From Cipro] Allergy Unknown Verified 02/08/24 08:15 codeine Allergy Unknown Verified 02/08/24 08:15 Physical Exam Vitals: Vital Signs Temp Pulse Pulse Resp BP BP Pulse Ox 02/09/24 08:59 99 02/09/24 08:00 98.1 F 60 17 153/65 99 02/08/24 23:35 98.1 F 61 20 164/69 97 02/08/24 22:22 60 18 161/65 98 02/08/24 20:00 60 18 136/100 98 02/08/24 18:54 59 L 18 148/61 98 02/08/24 17:00 60 18 164/74 98 02/08/24 15:00 60 18 168/69 99 02/08/24 12:21 60 18 162/64 99 Intake and Output 02/08/24 02/09/24 02/09/24 22:59 06:59 14:59 Output Total 1000 200 Balance -1000 -200 Output: Urine 1000 200 Other: Voiding Method External Catheter # Bowel Movements 1 Weight 57.5 kg patient is awake, comfortable, no acute distress Examination of the heart S1 and S2 Examination of the lungs bilateral breath sounds are heard, decreased breath sounds at bases with basilar crackles Abdomen is soft nontender Examination of lower extremities shows 2-3+ edema [employer] exam grossly intact Results - Lab Results Most recent lab results Calcium 8.8 mg/dL (8.4-10.2) 02/08/24 05:36 Magnesium 2.1 mg/dL (1.6-2.3) 02/08/24 05:36 02/09/24 07:50 02/08/24 05:36 Assessment and Plan Assessment: 1. Chronic kidney disease NKF stage IV with baseline creatinine around 2.6-2.5 mg/dL. Renal function close to baseline 2. acute on chronic diastolic CHF with ejection fraction 60-65%. 3. Volume overload 4. COVID-19 infection 5. 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 Hypertension with CK D, partly volume sensitive Plan: continue with IV Lasix, increase to twice a day Repeat labs in a.m. Continue with current dose of calcitriol Repeat chest x-ray in a.m. Norvasc is likely contributing to the edema as well. Consider switching to carvedilol. We will continue to monitor her daily basis for need for renal replacement niharika chicas. no indication for dialysis today. Thank you for the consultation. We will continue to follow the patient with you during her hospitalization.
[2024-02-09 11:48] LABS: Glucose,Whole Blood 144 mg/dL (70-110)
--- NOTE | 2024-02-09 12:10 | P.PN ---
Subjective Progress Note Date: 02/09/24 Pt has improvemnt of her dyspnea with diuresis. Seen by nephrology who increased her lasix dose to twice daily. Seen by cardiology who are following along as well. Gen: In NAD, non-toxic HEENT: normocephalic, atraumatic, hearing acuity is intant, mucous membranes moist CVS: perfusing all extremities well, no pitting edema, Respiratory: symmetric chest expansion, no accessory muscle use, GI: soft, NTTP, ND, : no suprapubic tenderness, no CVA tenderness MSK/Derm: no rashes, cyanosis Neuro: CN II-XII intact, no motor weakness, Psych: cooperative, euthymic mood, judgment and insight is intact Hospital Course: 83-year-old woman with a medical history of CAD status post CABG, complete heart block status post dual-chamber pacemaker, diastolic heart failure, chronic hypoxemic respiratory failure requiring 2 L of nasal cannula, chronic kidney disease stage V, diabetes/hypertension/hyperlipidemia presented to the emergency room with dyspnea. In the emergency room, patient was afebrile, 159/70, heart rate 60, 99% on 2 L of nasal cannula. CBC demonstrates anemia down to 10. Basic metabolic panel shows potassium of 5.3, BUN of 98, creatinine 2.85, EGFR of 15, which is her baseline. Liver function test show mild elevation of alkaline phosphatase of 137, otherwise unremarkable. Troponins 0.032. BNP was 4960. Influenza A, B, RSV, were negative. COVID was positive. [facility] left-sided pleural effusion as well as evidence of vascular congestion, personally interpreted. EKG demonstrates ventricular paced rhythm without evidence of ischemia, personally interpreted. Case was discussed with the emergency room provider and decision was made to move the patient to the hospital for heart failure exacerbation with the possibility of a component of COVID. Assessment/plan: Dyspnea/orthopnea Acute on chronic diastolic heart failure exacerbation Chronic hypoxemic respiratory failure requiring 2 L of nasal cannula COVID-positive Chronic kidney disease, stage V -Admit to inpatient with telemetry -Nephrology consult appreciated -Lasix 80mg IV twice daily -Cardiology was consulted by the emergency room -Daily weights, strict ins and outs, Ordoñez catheter was ordered by the ER -Last echocardiogram was in August 2023, will reorder -Agree with heart healthy diet, consider fluid restriction -Oxygen as needed -Contact/droplet precautions -Discontinue dexamethasone for now given patient's improvement after Lasix Paroxysmal Atrial Fibrillation without RVR CAD Complete heart block status post pacemaker Hypertension Hyperlipidemia Diabetes type 2 -Home medications reviewed and reconciled -Sliding scale insulin was ordered Pt is Full Code DVT PPx presently with apixaban Objective - Vital Signs Vital signs: Vital Signs Temp 98.1 F 02/09/24 08:00 Pulse 60 02/09/24 08:00 Resp 17 02/09/24 08:00 BP 153/65 02/09/24 08:00 Pulse Ox 99 02/09/24 08:59 FiO2 Intake & Output 02/08/24 02/09/24 02/09/24 18:59 06:59 18:59 Output Total 1500 200 Balance -1500 -200 Weight 57.5 kg Output: Urine 1500 200 Uretheral (Ordoñez) 500 Other: Voiding Method External Catheter # Bowel Movements 1 - Labs CBC & Chem 7: 02/09/24 07:50 02/08/24 05:36 Labs: Abnormal Lab Results - Last 24 Hours (Table) 02/08/24 02/09/24 02/09/24 Range/Units 17:59 05:45 07:50 WBC 10.8 H (3.8-10.6) k/uL RBC 3.37 L (3.80-5.40) m/uL Hgb 9.4 L (11.4-16.0) gm/dL Hct 30.3 L (34.0-46.0) % POC Glucose (mg/dL) 242 H 149 H (70-110) mg/dL 02/09/24 Range/Units 11:46 WBC (3.8-10.6) k/uL RBC (3.80-5.40) m/uL Hgb (11.4-16.0) gm/dL Hct (34.0-46.0) % POC Glucose (mg/dL) 144 H (70-110) mg/dL
[2024-02-09 12:23] LABS: Magnesium 2.3 mg/dL (1.5-2.4)
[2024-02-09 12:56] LABS: BUN/Creat Ratio 29.71 Ratio (12.00-20.00); Calcium 8.9 mg/dL (8.7-10.3); Chloride 95 mmol/L (96-109); Glucose 127 mg/dL (70-110); Potassium 6.1 mmol/L (3.5-5.5); Sodium 132 mmol/L (135-145)
[2024-02-09] MEDS ORDERED: NITROGLYCERIN OINT 1 INCH/GM PACKET TOPICAL SCH (13:00)
[2024-02-09] MEDS: INSULIN REGULAR 100 UNIT/ML VIAL (IV) IV ONE (14:58)
[2024-02-09] MEDS: DEXTROSE 50% SYRINGE 50 ML IVP STA (14:58)
[2024-02-09 16:26] VITALS: BMI 19.3
[2024-02-09 16:48] LABS: Glucose,Whole Blood 185 mg/dL (70-110)
[2024-02-09 20:33] LABS: Glucose,Whole Blood 211 mg/dL (70-110)
[2024-02-09 21:25] LABS: African American GFR (CKD) 13 (>60 ml/min/1.73 sqM); Anion Gap 11 mmol/L; Calcium 8.4 mg/dL (8.4-10.2); Carbon Dioxide 27 mmol/L (22-30); Chloride 95 mmol/L (98-107); Glucose 204 mg/dL (74-99); Non-African American GFR(CKD) 11 (>60 ml/min/1.73 sqM); Potassium 5.6 mmol/L (3.5-5.1); Sodium 133 mmol/L (137-145)
[2024-02-09 21:34] LABS: Blood Urea Nitrogen 115 mg/dL (7-17)
[2024-02-10 06:29] LABS: Glucose,Whole Blood 106 mg/dL (70-110)
[2024-02-10 09:52] LABS: Basophils # (A) 0.11 X 10*3/uL (0.00-0.10); Eosinophils # (A) 0.89 X 10*3/uL (0.04-0.35); Eosinophils % (A) 7.7 %; HCT 26.8 % (37.2-46.3); HGB 8.3 g/dL (12.0-15.0); Lymphocytes % (A) 26.8 %; MCH 27.2 pg (27.0-32.0); MCV 87.9 FL (80.0-97.0); Mean Platelet Volume 11.8 FL (9.5-12.2); Monocytes # (A) 0.94 X 10*3/uL (0.20-1.00); Monocytes % (A) 8.1 %; NRBC Per 100 WBC 0 X 10*3/uL (0.00-0.01); Neutrophils # (A) 6.51 X 10*3/uL (1.80-7.70); Neutrophils % (A) 56.2 %; Platelet Count 250 X 10*3/uL (140-440); RBC 3.05 X 10*6/uL (4.10-5.20); RDW 14.6 % (11.5-14.5); WBC 11.57 X 10*3/uL (4.50-10.00)
--- NOTE | 2024-02-10 10:20 | P.PN ---
Subjective Progress Note Date: 02/10/24 Pt has improvemnt of her dyspnea with diuresis. Pts Cr worsening. Had hyperK last night and rec'd shifting agents. Nephrology considering dialysis - pending AM labs. Gen: In NAD, non-toxic HEENT: normocephalic, atraumatic, hearing acuity is intant, mucous membranes moist CVS: perfusing all extremities well, no pitting edema, Respiratory: symmetric chest expansion, no accessory muscle use, GI: soft, NTTP, ND, : no suprapubic tenderness, no CVA tenderness MSK/Derm: no rashes, cyanosis Neuro: CN II-XII intact, no motor weakness, Psych: cooperative, euthymic mood, judgment and insight is intact Hospital Course: 83-year-old woman with a medical history of CAD status post CABG, complete heart block status post dual-chamber pacemaker, diastolic heart failure, chronic hypoxemic respiratory failure requiring 2 L of nasal cannula, chronic kidney disease stage V, diabetes/hypertension/hyperlipidemia presented to the emergency room with dyspnea. In the emergency room, patient was afebrile, 159/70, heart rate 60, 99% on 2 L of nasal cannula. CBC demonstrates anemia down to 10. Basic metabolic panel shows potassium of 5.3, BUN of 98, creatinine 2.85, EGFR of 15, which is her baseline. Liver function test show mild elevation of alkaline phosphatase of 137, otherwise unremarkable. Troponins 0.032. BNP was 4960. Influenza A, B, RSV, were negative. COVID was positive. Chest x-ray demonstrates trace left-sided pleural effusion as well as evidence of vascular congestion, personally interpreted. EKG demonstrates ventricular paced rhythm without evidence of ischemia, personally interpreted. Case was discussed with the emergency room provider and decision was made to move the patient to the hospital for heart failure exacerbation with the possibility of a component of COVID. Assessment/plan: Dyspnea/orthopnea Acute on chronic diastolic heart failure exacerbation Chronic hypoxemic respiratory failure requiring 2 L of nasal cannula COVID-positive Chronic kidney disease, stage V -Admit to inpatient with telemetry -Nephrology consult appreciated -Lasix 80mg IV twice daily -Cardiology was consulted by the emergency room -Daily weights, strict ins and outs, Ordoñez catheter was ordered by the ER -Echo - EF 60-65%, moderate MS, regurg, LAE -Agree with heart healthy diet, consider fluid restriction -Oxygen as needed -Contact/droplet precautions Paroxysmal Atrial Fibrillation without RVR CAD Complete heart block status post pacemaker Hypertension Hyperlipidemia Diabetes type 2 -Home medications reviewed and reconciled -Sliding scale insulin was ordered Pt is Full Code DVT PPx presently with apixaban Objective - Vital Signs Vital signs: Vital Signs Temp 98.7 F 02/10/24 07:06 Pulse 60 02/10/24 07:06 Resp 16 02/10/24 07:06 BP 134/56 02/10/24 07:06 Pulse Ox 98 02/10/24 07:06 FiO2 Intake & Output 02/09/24 02/10/24 02/10/24 18:59 06:59 18:59 Output Total 500 800 1 Balance -500 -800 -1 Weight 57.5 kg 61 kg Output: Urine 500 800 Stool 1 Other: Voiding Method Indwelling Catheter - Labs CBC & Chem 7: 02/10/24 05:41 02/09/24 19:29 Labs: Abnormal Lab Results - Last 24 Hours (Table) 02/09/24 02/09/24 02/09/24 Range/Units 07:50 11:46 16:39 WBC (4.50-10.00) X 10*3/uL RBC (4.10-5.20) X 10*6/uL Hgb (12.0-15.0) g/dL Hct (37.2-46.3) % MCHC (32.0-37.0) g/dL RDW (11.5-14.5) % Eosinophils # (0.04-0.35) X 10*3/uL Basophils # (0.00-0.10) X 10*3/uL Sodium 132 L (135-145) mmol/L Potassium 6.1 A* (3.5-5.5) mmol/L Chloride 95 L (96-109) mmol/L Anion Gap 13.00 H (4.00-12.00) mmol/L BUN 101.0 A* (9.0-27.0) mg/dL Creatinine 3.4 H (0.6-1.5) mg/dL Est GFR (CKD-EPI) 13 L (>=60) BUN/Creatinine Ratio 29.71 H (12.00-20.00) Ratio Glucose 127 H (70-110) mg/dL POC Glucose (mg/dL) 144 H 185 H (70-110) mg/dL 02/09/24 02/09/24 02/10/24 Range/Units 19:29 20:31 05:41 WBC 11.57 H (4.50-10.00) X 10*3/uL RBC 3.05 L (4.10-5.20) X 10*6/uL Hgb 8.3 L (12.0-15.0) g/dL Hct 26.8 L (37.2-46.3) % MCHC 31.0 L (32.0-37.0) g/dL RDW 14.6 H (11.5-14.5) % Eosinophils # 0.89 H (0.04-0.35) X 10*3/uL Basophils # 0.11 H (0.00-0.10) X 10*3/uL Sodium 133 L (135-145) mmol/L Potassium 5.6 H (3.5-5.5) mmol/L Chloride 95 L (96-109) mmol/L Anion Gap (4.00-12.00) mmol/L BUN 115 H* (9.0-27.0) mg/dL Creatinine 3.52 H (0.6-1.5) mg/dL Est GFR (CKD-EPI) (>=60) BUN/Creatinine Ratio (12.00-20.00) Ratio Glucose 204 H (70-110) mg/dL POC Glucose (mg/dL) 211 H (70-110) mg/dL
[2024-02-10 11:26] LABS: Glucose,Whole Blood 301 mg/dL (70-110)
[2024-02-10 11:46] LABS: Magnesium 2.1 mg/dL (1.5-2.4)
--- NOTE | 2024-02-10 12:00 | P.PN ---
Subjective patient is seen for follow-up for chronic kidney disease and acute kidney injury. She is admitted to the hospital with COVID infection. serum potassium improved to 5.6 yesterday. Serum creatinine was up to 3.5. Patient has had good urine output. trying to increase oral intake. No nausea vomiting or diarrhea. labs are pending from today. Objective - Vital Signs Vital signs: Vital Signs Temp 98.7 F 02/10/24 07:06 Pulse 60 02/10/24 07:06 Resp 16 02/10/24 07:06 BP 134/56 02/10/24 07:06 Pulse Ox 98 02/10/24 07:06 FiO2 Intake & Output 02/09/24 02/10/24 02/10/24 18:59 06:59 18:59 Output Total 500 800 1 Balance -500 -800 -1 Weight 57.5 kg 61 kg Output: Urine 500 800 Stool 1 Other: Voiding Method Indwelling Catheter Indwelling Catheter - Exam patient is awake, comfortable, no acute distress Examination of the heart S1 and S2 Examination of the lungs bilateral breath sounds are heard, decreased breath sounds at bases with basilar crackles Abdomen is soft nontender Examination of lower extremities shows 2-3+ edema [employer]AG[employer] FILLER exam grossly intact - Labs CBC & Chem 7: 02/10/24 05:41 02/09/24 19:29 Labs: Abnormal Lab Results - Last 24 Hours (Table) 02/09/24 02/09/24 02/09/24 Range/Units 07:50 16:39 19:29 WBC (4.50-10.00) X 10*3/uL RBC (4.10-5.20) X 10*6/uL Hgb (12.0-15.0) g/dL Hct (37.2-46.3) % MCHC (32.0-37.0) g/dL RDW (11.5-14.5) % Eosinophils # (0.04-0.35) X 10*3/uL Basophils # (0.00-0.10) X 10*3/uL Sodium 132 L 133 L (135-145) mmol/L Potassium 6.1 A* 5.6 H (3.5-5.5) mmol/L Chloride 95 L 95 L (96-109) mmol/L Anion Gap 13.00 H (4.00-12.00) mmol/L BUN 101.0 A* 115 H* (9.0-27.0) mg/dL Creatinine 3.4 H 3.52 H (0.6-1.5) mg/dL Est GFR (CKD-EPI) 13 L (>=60) BUN/Creatinine Ratio 29.71 H (12.00-20.00) Ratio Glucose 127 H 204 H (70-110) mg/dL POC Glucose (mg/dL) 185 H (70-110) mg/dL 02/09/24 02/10/24 02/10/24 Range/Units 20:31 05:41 11:25 WBC 11.57 H (4.50-10.00) X 10*3/uL RBC 3.05 L (4.10-5.20) X 10*6/uL Hgb 8.3 L (12.0-15.0) g/dL Hct 26.8 L (37.2-46.3) % MCHC 31.0 L (32.0-37.0) g/dL RDW 14.6 H (11.5-14.5) % Eosinophils # 0.89 H (0.04-0.35) X 10*3/uL Basophils # 0.11 H (0.00-0.10) X 10*3/uL Sodium (135-145) mmol/L Potassium (3.5-5.5) mmol/L Chloride (96-109) mmol/L Anion Gap (4.00-12.00) mmol/L BUN (9.0-27.0) mg/dL Creatinine (0.6-1.5) mg/dL Est GFR (CKD-EPI) (>=60) BUN/Creatinine Ratio (12.00-20.00) Ratio Glucose (70-110) mg/dL POC Glucose (mg/dL) 211 H 301 H (70-110) mg/dL Assessment and Plan Assessment: 1. Chronic kidney disease NKF stage IV with baseline creatinine around 2.6-2.5 mg/dL. Renal function slightly worse from baseline. patient is very reluctant regarding renal replacement therapy. 2. acute on chronic diastolic CHF with ejection fraction 60-65%. 3. Volume overload 4. COVID-19 infection 5. 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 Hypertension with CK D, partly volume sensitive 7. Hyperkalemia associated with acute kidney injury, improved Plan: follow-up on labs from today. Low potassium diet Continue with Lasix and decrease to once a day if potassium has improved. Continue to encourage increased oral intake Repeat labs in a.m. Repeat chest x-ray in a.m.
[2024-02-10 12:10] LABS: BUN/Creat Ratio 29.74 Ratio (12.00-20.00); Calcium 8.6 mg/dL (8.7-10.3); Carbon Dioxide 23.8 mmol/L (21.6-31.8); Chloride 94 mmol/L (96-109); Glucose 90 mg/dL (70-110); Potassium 5.8 mmol/L (3.5-5.5); Sodium 134 mmol/L (135-145)
--- NOTE | 2024-02-10 12:59 | P.PN ---
Subjective Progress Note Date: 02/10/24 Principal diagnosis: Heart failure The patient is a pleasant is a very pleasant 83-year-old female patient who is known to our service from before with a past medical history significant for coronary artery disease status post CABG and valvular heart disease status post aortic valve replacement and known mitral stenosis as well as permanent pacemaker and hypertension and dyslipidemia and chronic kidney disease who was admitted to the hospital with heart failure. February 10, 2024 The patient was seen and evaluated. Also she was tested positive for COVID-19 infection. Clinically she is feeling better. The shortness of breath has improved. The lower extremities edema has improved. Creatinine remains elevated and above is 3. She has been diuresing well on the current dose of Lasix IV. Apparently dialysis has been discussed with her. She is refusing to have dialysis. She reports no pain in the chest. Examination reveals regular rhythm with a systolic murmur and clear breathing sounds bilaterally and mild bilateral lower extremities edema Assessment Heart failure with a preserved ejection fraction Valvular heart disease as described above Renal failure Coronary artery disease status post CABG Multiple comorbid conditions Plan Continue the current medical regimen Continue IV Lasix Continue monitor the kidney function and electrolytes Follow-up with the patient Objective - Vital Signs Vital signs: Vital Signs Temp 98.7 F 02/10/24 07:06 Pulse 60 02/10/24 07:06 Resp 16 02/10/24 07:06 BP 134/56 02/10/24 07:06 Pulse Ox 98 02/10/24 07:06 FiO2 Intake & Output 02/09/24 02/10/24 02/10/24 18:59 06:59 18:59 Output Total 500 800 801 Balance -500 -800 -801 Weight 57.5 kg 61 kg Output: Urine 500 800 800 Stool 1 Other: Voiding Method Indwelling Catheter Indwelling Catheter - Labs CBC & Chem 7: 02/10/24 05:41 02/10/24 05:41 Labs: Abnormal Lab Results - Last 24 Hours (Table) 02/09/24 02/09/24 02/09/24 Range/Units 16:39 19:29 20:31 WBC (4.50-10.00) X 10*3/uL RBC (4.10-5.20) X 10*6/uL Hgb (12.0-15.0) g/dL Hct (37.2-46.3) % MCHC (32.0-37.0) g/dL RDW (11.5-14.5) % Eosinophils # (0.04-0.35) X 10*3/uL Basophils # (0.00-0.10) X 10*3/uL Sodium 133 L (137-145) mmol/L Potassium 5.6 H (3.5-5.1) mmol/L Chloride 95 L (98-107) mmol/L Anion Gap (4.00-12.00) mmol/L BUN 115 H* (7-17) mg/dL Creatinine 3.52 H (0.52-1.04) mg/dL Est GFR (CKD-EPI) (>=60) BUN/Creatinine Ratio (12.00-20.00) Ratio Glucose 204 H (74-99) mg/dL POC Glucose (mg/dL) 185 H 211 H (70-110) mg/dL Calcium (8.7-10.3) mg/dL 02/10/24 02/10/24 02/10/24 Range/Units 05:41 05:41 11:25 WBC 11.57 H (4.50-10.00) X 10*3/uL RBC 3.05 L (4.10-5.20) X 10*6/uL Hgb 8.3 L (12.0-15.0) g/dL Hct 26.8 L (37.2-46.3) % MCHC 31.0 L (32.0-37.0) g/dL RDW 14.6 H (11.5-14.5) % Eosinophils # 0.89 H (0.04-0.35) X 10*3/uL Basophils # 0.11 H (0.00-0.10) X 10*3/uL Sodium 134 L (137-145) mmol/L Potassium 5.8 H (3.5-5.1) mmol/L Chloride 94 L (98-107) mmol/L Anion Gap 16.20 H (4.00-12.00) mmol/L BUN 113.0 A* (7-17) mg/dL Creatinine 3.8 H (0.52-1.04) mg/dL Est GFR (CKD-EPI) 11 L (>=60) BUN/Creatinine Ratio 29.74 H (12.00-20.00) Ratio Glucose (74-99) mg/dL POC Glucose (mg/dL) 301 H (70-110) mg/dL Calcium 8.6 L (8.7-10.3) mg/dL
[2024-02-10 16:27] LABS: Glucose,Whole Blood 137 mg/dL (70-110)
[2024-02-10] MEDS: FUROSEMIDE 10 MG/ML 10 ML VIAL IV SCH (20:52)
[2024-02-10 22:03] LABS: Glucose,Whole Blood 118 mg/dL (70-110)
[2024-02-10] MEDS: SODIUM ZIRCONIUM CYCLOSILICATE 10 GM PACKET PO SCH (22:17)
[2024-02-11 03:34] LABS: Potassium 4.7 mmol/L (3.5-5.1)
[2024-02-11 06:26] LABS: Glucose,Whole Blood 95 mg/dL (70-110)
--- NOTE | 2024-02-11 08:14 | P.PN ---
Subjective Progress Note Date: 02/11/24 Pt has improvemnt of her dyspnea with diuresis. Pt adamant about not wanting dialysis or hospice. K was improved yesterday. Lasix downtitrated to daily. Pending AM labs. Gen: In NAD, non-toxic HEENT: normocephalic, atraumatic, hearing acuity is intant, mucous membranes moist CVS: perfusing all extremities well, no pitting edema, Respiratory: symmetric chest expansion, no accessory muscle use, GI: soft, NTTP, ND, : no suprapubic tenderness, no CVA tenderness MSK/Derm: no rashes, cyanosis Neuro: CN II-XII intact, no motor weakness, Psych: cooperative, euthymic mood, judgment and insight is intact Hospital Course: 83-year-old woman with a medical history of CAD status post CABG, complete heart block status post dual-chamber pacemaker, diastolic heart failure, chronic hypoxemic respiratory failure requiring 2 L of nasal cannula, chronic kidney disease stage V, diabetes/hypertension/hyperlipidemia presented to the emergency room with dyspnea. In the emergency room, patient was afebrile, 159/70, heart rate 60, 99% on 2 L of nasal cannula. CBC demonstrates anemia down to 10. Bas ic metabolic panel shows potassium of 5.3, BUN of 98, creatinine 2.85, EGFR of 15, which is her baseline. Liver function test show mild elevation of alkaline phosphatase of 137, otherwise unremarkable. Troponins 0.032. BNP was 4960. Influenza A, B, RSV, were negative. COVID was positive. Chest x-ray demonstrates trace left-sided pleural effusion as well as evidence of vascular congestion, personally interpreted. EKG demonstrates ventricular paced rhythm without evidence of ischemia, personally interpreted. Case was discussed with the emergency room provider and decision was made to move the patient to the hospital for heart failure exacerbation with the possibility of a component of COVID. Assessment/plan: Dyspnea/orthopnea Acute on chronic diastolic heart failure exacerbation Chronic hypoxemic respiratory failure requiring 2 L of nasal cannula COVID-positive Chronic kidney disease, stage V -Admit to inpatient with telemetry -Nephrology consult appreciated -Lasix 80mg IV daily -Cardiology was consulted by the emergency room -Daily weights, strict ins and outs, Ordoñez catheter was ordered by the ER -Echo - EF 60-65%, moderate MS, regurg, LAE -Agree with heart healthy diet, consider fluid restriction -Oxygen as needed -Contact/droplet precautions Paroxysmal Atrial Fibrillation without RVR CAD Complete heart block status post pacemaker Hypertension Hyperlipidemia Diabetes type 2 -Home medications reviewed and reconciled -Sliding scale insulin was ordered Pt is Full Code DVT PPx presently with apixaban Objective - Vital Signs Vital signs: Vital Signs Temp 97.7 F 02/11/24 08:00 Pulse 60 02/11/24 08:00 Resp 17 02/11/24 08:00 BP 153/65 02/11/24 08:00 Pulse Ox 96 02/11/24 08:00 FiO2 Intake & Output 02/10/24 02/11/24 02/11/24 18:59 06:59 18:59 Intake Total 640 Output Total 1001 1250 Balance -361 -1250 Weight 63.5 kg Intake: Oral 640 Output: Urine 1000 1250 Stool 1 Other: Voiding Method Indwelling Catheter Indwelling Catheter # Bowel Movements 1 - Labs CBC & Chem 7: 02/10/24 05:41 02/11/24 02:38 Labs: Abnormal Lab Results - Last 24 Hours (Table) 02/10/24 02/10/24 02/10/24 Range/Units 05:41 05:41 11:25 WBC 11.57 H (4.50-10.00) X 10*3/uL RBC 3.05 L (4.10-5.20) X 10*6/uL Hgb 8.3 L (12.0-15.0) g/dL Hct 26.8 L (37.2-46.3) % MCHC 31.0 L (32.0-37.0) g/dL RDW 14.6 H (11.5-14.5) % Eosinophils # 0.89 H (0.04-0.35) X 10*3/uL Basophils # 0.11 H (0.00-0.10) X 10*3/uL Sodium 134 L (135-145) mmol/L Potassium 5.8 H (3.5-5.5) mmol/L Chloride 94 L (96-109) mmol/L Anion Gap 16.20 H (4.00-12.00) mmol/L BUN 113.0 A* (9.0-27.0) mg/dL Creatinine 3.8 H (0.6-1.5) mg/dL Est GFR (CKD-EPI) 11 L (>=60) BUN/Creatinine Ratio 29.74 H (12.00-20.00) Ratio POC Glucose (mg/dL) 301 H (70-110) mg/dL Calcium 8.6 L (8.7-10.3) mg/dL 02/10/24 02/10/24 Range/Units 16:26 21:57 WBC (4.50-10.00) X 10*3/uL RBC (4.10-5.20) X 10*6/uL Hgb (12.0-15.0) g/dL Hct (37.2-46.3) % MCHC (32.0-37.0) g/dL RDW (11.5-14.5) % Eosinophils # (0.04-0.35) X 10*3/uL Basophils # (0.00-0.10) X 10*3/uL Sodium (135-145) mmol/L Potassium (3.5-5.5) mmol/L Chloride (96-109) mmol/L Anion Gap (4.00-12.00) mmol/L BUN (9.0-27.0) mg/dL Creatinine (0.6-1.5) mg/dL Est GFR (CKD-EPI) (>=60) BUN/Creatinine Ratio (12.00-20.00) Ratio POC Glucose (mg/dL) 137 H 118 H (70-110) mg/dL Calcium (8.7-10.3) mg/dL
[2024-02-11 11:42] LABS: Glucose,Whole Blood 170 mg/dL (70-110)
[2024-02-11 12:00] LABS: African American GFR (CKD) 11 (>60 ml/min/1.73 sqM); Anion Gap 11 mmol/L; Calcium 8.6 mg/dL (8.4-10.2); Carbon Dioxide 26 mmol/L (22-30); Chloride 98 mmol/L (98-107); Glucose 92 mg/dL (74-99); Non-African American GFR(CKD) 10 (>60 ml/min/1.73 sqM); Sodium 135 mmol/L (137-145)
--- NOTE | 2024-02-11 12:08 | P.PN ---
Subjective patient is seen for follow-up for chronic kidney disease and acute kidney injury. She is admitted to the hospital with COVID infection. Started on Lokelma yesterday for persistent hyperkalemia. Patient has had good urine output. She has an indwelling Ordoñez catheter. trying to increase oral intake. No nausea vomiting or diarrhea. Labs are pe nding from today except for the potassium which was down to 4.7. Objective - Vital Signs Vital signs: Vital Signs Temp 97.7 F 02/11/24 08:00 Pulse 60 02/11/24 08:00 Resp 17 02/11/24 08:00 BP 153/65 02/11/24 08:00 Pulse Ox 96 02/11/24 08:00 FiO2 Intake & Output 02/10/24 02/11/24 02/11/24 18:59 06:59 18:59 Intake Total 640 Output Total 1001 1250 Balance -361 -1250 Weight 63.5 kg Intake: Oral 640 Output: Urine 1000 1250 Stool 1 Other: Voiding Method Indwelling Catheter Indwelling Catheter # Bowel Movements 1 1 - Exam patient is awake, comfortable, no acute distress Examination of the heart S1 and S2 Examination of the lungs bilateral breath sounds are heard, decreased breath sounds at bases Abdomen is soft nontender Examination of lower extremities shows 2-3+ edema ORIENTATION AND MOBILITY SPECIALIST exam grossly intact - Labs CBC & Chem 7: 02/10/24 05:41 02/11/24 02:38 Labs: Abnormal Lab Results - Last 24 Hours (Table) 02/10/24 02/10/24 02/10/24 Range/Units 05:41 16:26 21:57 Sodium 134 L (135-145) mmol/L Potassium 5.8 H (3.5-5.5) mmol/L Chloride 94 L (96-109) mmol/L Anion Gap 16.20 H (4.00-12.00) mmol/L BUN 113.0 A* (9.0-27.0) mg/dL Creatinine 3.8 H (0.6-1.5) mg/dL Est GFR (CKD-EPI) 11 L (>=60) BUN/Creatinine Ratio 29.74 H (12.00-20.00) Ratio POC Glucose (mg/dL) 137 H 118 H (70-110) mg/dL Calcium 8.6 L (8.7-10.3) mg/dL 02/11/24 Range/Units 11:41 Sodium (135-145) mmol/L Potassium (3.5-5.5) mmol/L Chloride (96-109) mmol/L Anion Gap (4.00-12.00) mmol/L BUN (9.0-27.0) mg/dL Creatinine (0.6-1.5) mg/dL Est GFR (CKD-EPI) (>=60) BUN/Creatinine Ratio (12.00-20.00) Ratio POC Glucose (mg/dL) 170 H (70-110) mg/dL Calcium (8.7-10.3) mg/dL Assessment and Plan Assessment: 1. Chronic kidney disease NKF stage IV with baseline creatinine around 2.6-2.5 mg/dL. Renal function slightly worse from baseline. patient is very reluctant regarding renal replacement therapy. No acute indication for starting hemodialysis at this time. 2. acute on chronic diastolic CHF with ejection fraction 60-65%. 3. Volume overload 4. COVID-19 infection 5. 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 Hypertension with CK D, partly volume sensitive 7. Hyperkalemia associated with acute kidney injury, improved Plan: follow-up on labs from today. Low potassium diet Continue with Lasix and decrease to once a day Continue to encourage increased oral intake Repeat labs in a.m.
[2024-02-11 12:10] LABS: Blood Urea Nitrogen 117 mg/dL (7-17)
--- NOTE | 2024-02-11 13:13 | P.PN ---
Subjective Progress Note Date: 02/11/24 Principal diagnosis: Heart failure The patient is a pleasant is a very pleasant 83-year-old female patient who is known to our service from before with a past medical history significant for coronary artery disease status post CABG and valvular heart disease status post aortic valve replacement and known mitral stenosis as well as permanent pacemaker and hypertension and dyslipidemia and chronic kidney disease who was admitted to the hospital with heart failure. February 10, 2024 The patient was seen and evaluated. Also she was tested positive for COVID-19 infection. Clinically she is feeling better. The shortness of breath has improved. The lower extremities edema has improved. Creatinine remains elevated and above is 3. She has been diuresing well on the current dose of Lasix IV. Apparently dialysis has been discussed with her. She is refusing to have dialysis. She reports no pain in the chest. Examination reveals regular rhythm with a systolic murmur and clear breathing sounds bilaterally and mild bilateral lower extremities edema February 11, 2024 The patient was seen and evaluated this morning. She is feeling better. The shortness of breath has improved as well as the lower extremities edema. But she continues to be in fluid overload with bilateral rhonchi on examination and bilateral lower extremities edema. No pain in the chest. Creatinine remains stable and she continues to diurese extremely well on the current dose of Lasix IV which is 60 mg twice daily. The examination revealed regular rhythm with a systolic murmur at the right upper sternal border with bilateral rhonchi/crackles and mild bilateral lower extremities edema. Assessment Heart failure with a preserved ejection fraction Valvular heart disease as described above Renal failure Coronary artery disease status post CABG Multiple comorbid conditions Plan Continue the current medical regimen Continue IV Lasix Continue monitor the kidney function and electrolytes Follow-up with the patient Objective - Vital Signs Vital signs: Vital Signs Temp 97.7 F 02/11/24 08:00 Pulse 60 02/11/24 08:00 Resp 17 02/11/24 08:00 BP 153/65 02/11/24 08:00 Pulse Ox 96 02/11/24 08:00 FiO2 Intake & Output 02/10/24 02/11/24 02/11/24 18:59 06:59 18:59 Intake Total 640 Output Total 1001 1250 Balance -361 -1250 Weight 63.5 kg Intake: Oral 640 Output: Urine 1000 1250 Stool 1 Other: Voiding Method Indwelling Catheter Indwelling Catheter # Bowel Movements 1 1 - Labs CBC & Chem 7: 02/10/24 05:41 02/11/24 02:38 Labs: Abnormal Lab Results - Last 24 Hours (Table) 02/10/24 02/10/24 02/11/24 Range/Units 16:26 21:57 02:38 Sodium 135 L (137-145) mmol/L BUN 117 H* (7-17) mg/dL Creatinine 3.95 H (0.52-1.04) mg/dL POC Glucose (mg/dL) 137 H 118 H (70-110) mg/dL 02/11/24 Range/Units 11:41 Sodium (137-145) mmol/L BUN (7-17) mg/dL Creatinine (0.52-1.04) mg/dL POC Glucose (mg/dL) 170 H (70-110) mg/dL
--- NOTE | 2024-02-11 14:17 | XR ---
EXAMINATION TYPE: XR chest 1V DATE OF EXAM: 02/11/2024 COMPARISON: 02/08/2024 HISTORY: 83-year-old female CHF TECHNIQUE: Single frontal view of the chest is obtained. FINDINGS: Heart normal size. Median sternotomy wires with post-CABG clips. Perihilar densities. Rhonda lar small left pleural effusion. Degenerative change both shoulders. IMPRESSION: Similar mild pulmonary vascular congestion. Small left pleural effusion with adjacent at electasis and/or consolidation.
[2024-02-11 16:39] LABS: Glucose,Whole Blood 319 mg/dL (70-110)
[2024-02-11 20:29] LABS: Glucose,Whole Blood 146 mg/dL (70-110)
[2024-02-12 03:31] VITALS: PULSE 60
[2024-02-12 05:55] LABS: Glucose,Whole Blood 105 mg/dL (70-110)
[2024-02-12] MEDS: FUROSEMIDE 10 MG/ML 10 ML VIAL IV SCH (08:13)
[2024-02-12 10:18] LABS: African American GFR (CKD) 12 (>60 ml/min/1.73 sqM); Anion Gap 10 mmol/L; Calcium 8.5 mg/dL (8.4-10.2); Carbon Dioxide 27 mmol/L (22-30); Chloride 96 mmol/L (98-107); Glucose 250 mg/dL (74-99); Non-African American GFR(CKD) 11 (>60 ml/min/1.73 sqM); Potassium 3.9 mmol/L (3.5-5.1); Sodium 133 mmol/L (137-145)
[2024-02-12 10:25] LABS: Blood Urea Nitrogen 110 mg/dL (7-17)
--- NOTE | 2024-02-12 11:08 | P.DS ---
Providers Date of admission: 02/08/24 09:54 Expected date of discharge: 02/12/24 Attending physician: Frida Herrera MD Consults: 02/08/24 11:08 Consult Physician Routine Consulting Provider: Natali Barton Consult Reason/Comments: CKD stage V Do you want consulting provider notified?: Yes Primary care physician: [facility] Course: Dyspnea/orthopnea Acute on chronic diastolic heart failure exacerbation Chronic hypoxemic respiratory failure requiring 2 L of nasal cannula COVID-positive Chronic kidney disease, stage V Paroxysmal Atrial Fibrillation without RVR CAD Complete heart block status post pacemaker Hypertension Hyperlipidemia Diabetes type 2 Gen: In NAD, non-toxic HEENT: normocephalic, atraumatic, hearing acuity is intant, mucous membranes m oist CVS: perfusing all extremities well, no pitting edema, Respiratory: symmetric chest expansion, no accessory muscle use, GI: soft, NTTP, ND, : no suprapubic tenderness, no CVA tenderness MSK/Derm: no rashes, cyanosis Neuro: CN II-XII intact, no motor weakness, Psych: cooperative, euthymic mood, judgment and insight is intact Hospital Course: 83-year-old woman with a medical history of CAD status post CABG, complete heart block status post dual-chamber pacemaker, diastolic heart failure, chronic hypoxemic respiratory failure requiring 2 L of nasal cannula, chronic kidney disease stage V, diabetes/hypertension/hyperlipidemia presented to the emergency room with dyspnea. In the emergency room, patient was afebrile, 159/70, heart rate 60, 99% on 2 L of nasal cannula. CBC demonstrates anemia down to 10. Basic metabolic panel shows potassium of 5.3, BUN of 98, creatinine 2.85, EGFR of 15, which is her baseline. Liver function test show mild elevation of alkaline phosphatase of 137, otherwise unremarkable. Troponins 0.032. BNP was 4960. Influenza A, B, RSV, were negative. COVID was positive. Chest x-ray demonstrates trace left-sided pleural effusion as well as evidence of vascular congestion, personally interpreted. EKG demonstrates ventricular paced rhythm without evidence of ischemia, personally interpreted. Case was discussed with the emergency room provider and decision was made to move the patient to the hospital for heart failure exacerbation with the possibility of a component of COVID. Patient's Lasix was increased to 80 mg IV twice daily, patient's kidney function was closely followed and creatinine peaked at 3.95 then started to improve back down to 3.7. Dialysis was considered, however, patient was adamantly against initiating renal replacement therapy. Patient had to be initiated on Lokelma due to hyperkalemia, with potassium improving to 3.9 on day of discharge. Case was discussed for final recommendations with nephrology who recommended replacing patient's home Lasix with 40 of torsemide daily, repeating basic metabolic panel in 3 days and following up with primary care physician as well as nephrology. Patient's echocardiogram which was done in house showed an EF of 60 to 65%, moderate MS, left atrial enlargement. Patient had also been counseled on low potassium diet. I spent 40 minutes coordinating this discharge Patient Condition at Discharge: Good Plan - Discharge Summary Discharge Rx Participant: No New Discharge Prescriptions: New Acetaminophen Tab [Tylenol] 650 mg PO Q6HR PRN tab PRN Reason: Fever And/ Or Pain Torsemide [Soaanz] 40 mg PO DAILY #30 tab Continue Ubidecarenone [Co Q-10] 30 mg PO HS calcitrioL 0.25 mcg PO SA amLODIPine [Norvasc] 10 mg PO HS Apixaban [Eliquis] 2.5 mg PO BID Simvastatin [Zocor] 20 mg PO HS Cholecalciferol [Vitamin D3 (25 Mcg = 1000 Iu)] 50 mcg PO DAILY@1200 Discontinued Furosemide [Lasix] 80 mg PO DAILY Discharge Medication List Simvastatin [Zocor] 20 mg PO HS 08/22/22 [History] Cholecalciferol [Vitamin D3 (25 Mcg = 1000 Iu)] 50 mcg PO DAILY@1200 02/28/23 [History] Ubidecarenone [Co Q-10] 30 mg PO HS 09/06/23 [History] calcitrioL 0.25 mcg PO SA 11/17/23 [History] Apixaban [Eliquis] 2.5 mg PO BID 02/08/24 [History] amLODIPine [Norvasc] 10 mg PO HS 02/08/24 [History] Acetaminophen Tab [Tylenol] 650 mg PO Q6HR PRN tab 02/12/24 [Rx] Torsemide [Soaanz] 40 mg PO DAILY #30 tab 02/12/24 [Rx] Follow up Appointment(s)/Referral(s): Musa Feliciano MD [Primary Care Provider] - 1-2 days [facility] [NON-STAFF] - As Needed (Agency will phone within 24 to 48 hours to schedule first visit. ) Discharge Disposition: HOME SELF-CARE
--- NOTE | 2024-02-12 11:18 | P.PN ---
Subjective Patient is seen in follow-up for acute kidney injury on chronic kidney disease. Renal function little better. Has been voiding. Denies chest pain or shortness of breath. Wants to go home. Vital signs are stable. General: No acute distress. HEENT: Head exam is unremarkable. LUNGS: No audible rhonchi or wheezes. HEART: Rate and Rhythm are regular. ABDOMEN: Nontender. EXTREMITITES: Trace edema. Objective - Vital Signs Vital signs: Vital Signs Temp 97.7 F 02/12/24 07:56 Pulse 60 02/12/24 09:11 Resp 17 02/12/24 09:11 BP 164/66 02/12/24 07:56 Pulse Ox 98 02/12/24 09:28 FiO2 Intake & Output 02/11/24 02/12/24 02/12/24 18:59 06:59 18:59 Intake Total 368 Output Total 300 900 551 Balance -300 -900 -183 Weight 59 kg Intake: Oral 368 Output: Urine 300 900 550 Stool 1 Other: Voiding Method Indwelling Catheter Indwelling Catheter Indwelling Catheter # Bowel Movements 1 - Labs CBC & Chem 7: 02/10/24 05:41 02/12/24 09:32 Labs: Abnormal Lab Results - Last 24 Hours (Table) 02/11/24 02/11/24 02/11/24 Range/Units 02:38 11:41 16:38 Sodium 135 L (137-145) mmol/L Chloride (98-107) mmol/L BUN 117 H* (7-17) mg/dL Creatinine 3.95 H (0.52-1.04) mg/dL Glucose (74-99) mg/dL POC Glucose (mg/dL) 170 H 319 H (70-110) mg/dL 02/11/24 02/12/24 Range/Units 20:27 09:32 Sodium 133 L (137-145) mmol/L Chloride 96 L (98-107) mmol/L BUN 110 H* (7-17) mg/dL Creatinine 3.70 H (0.52-1.04) mg/dL Glucose 250 H (74-99) mg/dL POC Glucose (mg/dL) 146 H (70-110) mg/dL Assessment and Plan Plan: Assessment: 1. Acute kidney injury secondary to ATN secondary to cardiorenal syndrome versus progression of underlying chronic kidney disease. Creatinine peaked at 3.95 this admission and is 3.7 today. 2. Acute on chronic diastolic CHF with moderate mitral stenosis. 3. Acute COVID-19 infection. 4. Chronic kidney disease mineral bone disease maintained on calcitriol. 5. Hypertension with chronic kidney disease. Stable. 6. Hyperkalemia secondary to acute kidney injury. Improved. On Lokelma. 7. Volume overload. Improved with diuresis. 8. Anemia of chronic kidney disease. Plan: Change IV Lasix to torsemide 40 mg once daily. Advised patient to maintain low-salt diet and fluid restriction of less than 50 ounces per day. Advised patient to monitor her weight closely at home and to notify physician if develops edema or gains more than 3 pounds in 1 week duration. Follow-up outpatient 1 week postdischarge. Hold Lokelma for now. Repeat BMP and magnesium level 2 to 3 days postdischarge. Case discussed with primary physician. Will check iron studies and add SOPHIE if iron replete outpatient. Patient adamant about being discharged today. Renal replacement therapy also discussed with the patient. Patient does not want any formal renal replacement therapy if needed.
[2024-02-12 11:25] LABS: Glucose,Whole Blood 257 mg/dL (70-110)
[2024-02-12 14:27] VITALS: BP 155/65; RESP 16; TEMP 98.5
[2024-02-12 15:40] LABS: Eosinophils # (A) 0.93 X 10*3/uL (0.04-0.35); Eosinophils % (A) 9.2 %; HCT 29.6 % (37.2-46.3); HGB 9.1 g/dL (12.0-15.0); Lymphocytes % (A) 22.8 %; MCH 27.1 pg (27.0-32.0); MCHC 30.7 g/dL (32.0-37.0); MCV 88.1 FL (80.0-97.0); Mean Platelet Volume 12.2 FL (9.5-12.2); Monocytes # (A) 0.83 X 10*3/uL (0.20-1.00); Monocytes % (A) 8.2 %; NRBC Per 100 WBC 0 X 10*3/uL (0.00-0.01); Neutrophils # (A) 5.92 X 10*3/uL (1.80-7.70); Neutrophils % (A) 58.6 %; Platelet Count 286 X 10*3/uL (140-440); RBC 3.36 X 10*6/uL (4.10-5.20); RDW 14.3 % (11.5-14.5)
== END 2024-02-12 16:03 | disposition home health service (06) | DRG 177 ==
LOC: EC 05:06 → 4SSUR 09:54
PROVIDERS: ADMIT Internal Medicine; ATTEND Internal Medicine
PROC: 8E0ZXY6 Isolation (ICD-10-PCS; principal; 2024-02-08)
DX: U07.1 COVID-19 (principal); I50.33 Acute on chronic diastolic (congestive) heart failure; N17.0 Acute kidney failure with tubular necrosis; I13.2 Hypertensive heart and chronic kidney disease with heart failure and with stage 5 chronic kidney disease, or end stage renal disease; N18.5 Chronic kidney disease, stage 5; J96.11 Chronic respiratory failure with hypoxia; E11.22 Type 2 diabetes mellitus with diabetic chronic kidney disease; I48.0 Paroxysmal atrial fibrillation; E78.5 Hyperlipidemia, unspecified; I25.10 Atherosclerotic heart disease of native coronary artery without angina pectoris; E87.5 Hyperkalemia; D63.1 Anemia in chronic kidney disease; E83.89 Other disorders of mineral metabolism; M89.8X9 Other specified disorders of bone, unspecified site; I27.20 Pulmonary hypertension, unspecified; I08.0 Rheumatic disorders of both mitral and aortic valves; Z95.2 Presence of prosthetic heart valve; Z53.29 Procedure and treatment not carried out because of patient's decision for other reasons; Z95.1 Presence of aortocoronary bypass graft; Z95.0 Presence of cardiac pacemaker; Z79.899 Other long term (current) drug therapy; Z79.01 Long term (current) use of anticoagulants; Z87.891 Personal history of nicotine dependence; Z88.5 Allergy status to narcotic agent; Z88.1 Allergy status to other antibiotic agents
CPT/HCPCS: 36415; 71045; 71046; 80048; 80053; 83605; 83735; 83880; 84484; 85025; 85610; 85730; 87636; 93005; 93306; 94760; 96374; 96375; 96376; 99285

== ENCOUNTER 2024-05-06 15:00 | Emergency (ER) | payer MEDICARE ==
--- NOTE | 2024-05-06 15:14 | ED ---
General Adult HPI - General Stated complaint: Nausea, Vomiting Time Seen by Provider: 05/06/24 15:06 Source: patient, EMS, RN notes reviewed Mode of arrival: EMS Limitations: no limitations - History of Present Illness Initial comments: Patient is an 83-year-old female present to the emergency department with concerns for nausea. Onset of symptoms was 3 to 4 days ago. Patient received medication by EMS just prior to arrival. Patient does have nausea and has had multiple episodes of dry heaves. No fever. No abdominal pain. No constipation or diarrhea. No history of similar symptoms previously. - Related Data Home Medications Medication Instructions Recorded Confirmed Simvastatin [Zocor] 20 mg PO HS 08/22/22 05/06/24 Ubidecarenone [Co Q-10] 30 mg PO HS 09/06/23 05/06/24 calcitrioL 0.25 mcg PO SA 11/17/23 05/06/24 Apixaban [Eliquis] 2.5 mg PO BID 02/08/24 05/06/24 amLODIPine [Norvasc] 10 mg PO HS 02/08/24 05/06/24 Sulfamethox-Tmp 800-160Mg [Bactrim 1 tab PO Q12HR 05/06/24 05/06/24 DS 800-160 mg] allopurinoL [Zyloprim] 100 mg PO DAILY 05/06/24 05/06/24 Previous Rx's Medication Instructions Recorded Acetaminophen Tab [Tylenol] 650 mg PO Q6HR PRN tab 02/12/24 Torsemide [Demadex] 40 mg PO DAILY #60 tablet 02/12/24 Allergies Allergy/AdvReac Type Severity Reaction Status Date / Time cephalexin Allergy Unknown Verified 05/06/24 16:15 ciprofloxacin [From Cipro] Allergy Unknown Verified 05/06/24 16:15 codeine Allergy Unknown Verified 05/06/24 16:15 Review of Systems ROS Statement: Those systems with pertinent positive or pertinent negative responses have been documented in the HPI. ROS Other: All systems not noted in ROS Statement are negative. Constitutional: Denies: fever Eyes: Denies: eye pain ENT: Denies: ear pain Respiratory: Denies: dyspnea Cardiovascular: Denies: chest pain Gastrointestinal: Reports: as per HPI, nausea. Denies: abdominal pain, diarrhea, constipation Genitourinary: Denies: dysuria Past Medical History Past Medical History: Coronary Artery Disease (CAD), Heart Failure, Diabetes Mellitus, Hyperlipidemia, Hypertension, Renal Disease Additional Past Medical History / Comment(s): pacemaker for complete heart block, AVR History of Any Multi-Drug Resistant Organisms: None Reported Past Surgical History: Appendectomy, Cholecystectomy, Coronary Bypass/CABG, Hysterectomy, Pacemaker, Tonsillectomy Past Anesthesia/Blood Transfusion Reactions: No Reported Reaction Type of Cardiac Device: Permanent Pacemaker Device Placement Date:: 02/20/23 Smoking Status: Former smoker - Past Family History Father History Unknown: Yes Family Medical History: COPD General Exam Limitations: no limitations General appearance: alert, in no apparent distress Head exam: Present: normocephalic Eye exam: Present: normal appearance Neck exam: Present: normal inspection Respiratory exam: Present: normal lung sounds bilaterally Cardiovascular Exam: Present: regular rate, normal rhythm, systolic murmur (Patient states chronic) GI/Abdominal exam: Present: soft. Absent: tenderness Extremities exam: Present: pedal edema. Absent: calf tenderness Neurological exam: Present: alert Psychiatric exam: Present: normal affect, normal mood Skin exam: Present: normal color Course Vital Signs 05/06/24 15:00 Temperature 96.9 F L Pulse Rate 74 Respiratory 18 Rate Blood Pressure 131/52 O2 Sat by Pulse 98 Oximetry EKG Findings - EKG Results: EKG: interpreted by ERMD (Paced rhythm with a rate of 60. Left axis. Wide- complex QRS. Nonspecific ST-T.) Medical Decision Making - Medical Decision Making Was pt. sent in by a medical professional or institution (, PA, FUR FLOOR WORKER, urgent care, hospital, or half-way...) When possible be specific @ -No Did you speak to anyone other than the patient for history (EMS, parent, family, police, friend...)? What history was obtained from this source @ -EMS reports history of transportation and Zofran being given Did you review nursing and triage notes (agree or disagree)? Why? @ -I reviewed and agree with nursing and triage notes Were old charts reviewed (outside hosp., previous admission, EMS record, old EKG, old radiological studies, urgent care reports/EKG's, half-way records)? Report findings @ -Old labs specifically renal function reviewed Differential Diagnosis (chest pain, altered mental status, abdominal pain women, abdominal pain men, vaginal bleeding, weakness, fever, dyspnea, syncope, headache, dizziness, GI bleed, back pain, seizure, CVA, palpatations, mental health, musculoskeletal)? @ -Differential Abdominal Pain Women: Appendicitis, Cholecystitis, diverticulosis, ischemic bowel, pancreatitis, hepat itis, UTI, gastroenteritis, AAA, incarcerated hernia, bowel obstruction, constipation, inflammatory bowel, hepatitis, peptic ulcer disease, splenic infarction, perforated viscus, vulvitis, ovarian torsion, PID, kidney stone, placenta abruption, this is not meant to be an all-inclusive list EKG interpreted by me (3pts min.). @ -As above X-rays interpreted by me (1pt min.). @ -Abdominal x-ray shows nonspecific CT interpreted by me (1pt min.). @ -None done U/S interpreted by me (1pt. min.). @ -None done What testing was considered but not performed or refused? (CT, X-rays, U/S, labs)? Why? @ -None What meds were considered but not given or refused? Why? @ -None Did you discuss the management of the patient with other professionals (professionals i.e. , PA, FUR FLOOR WORKER, lab, RT, psych nurse, transition social worker, erp consultant, teacher, radiological defense officer, case packer and sealer)? Give summary @ -No Was smoking cessation discussed for >3mins.? @ -No Was critical care preformed (if so, how long)? @ -No Were there social determinants of health that impacted care today? How? (Homelessness, low income, unemployed, alcoholism, drug addiction, transportation, low edu. Level, literacy, decrease access to med. care, detention, rehab)? @ -No Was there de-escalation of care discussed even if they declined (Discuss DNR or withdrawal of care, Hospice)? DNR status @ -No What co-morbidities impacted this encounter? (DM, HTN, Smoking, COPD, CAD, Cancer, CVA, ARF, Chemo, Hep., AIDS, mental health diagnosis, sleep apnea, m orbid obesity)? @ -None Was patient admitted / discharged? Hospital course, mention meds given and route, prescriptions, significant lab abnormalities, going to OR and other pertinent info. @ -Patient presents with nausea and dry heaves. Symptoms improved. Patient is receptive to Tylenol for feeling achy otherwise is comfortable with discharge home. Renal function is consistent with previous. Patient will be discharged with follow-up with primary care physician Undiagnosed new problem with uncertain prognosis? @ -No Drug Therapy requiring intensive monitoring for toxicity (Heparin, Nitro, Insulin, Cardizem)? @ -No Were any procedures done? @ -No Diagnosis/symptom? @ -Nausea Acute, or Chronic, or Acute on Chronic? @ -Acute Uncomplicated (without systemic symptoms) or Complicated (systemic symptoms)? @ -Default Side effects of treatment? @ -No Exacerbation, Progression, or Severe Exacerbation? @ -No Poses a threat to life or bodily function? How? (Chest pain, USA, [place], pneumonia, PE, COPD, DKA, ARF, appy, cholecystitis, CVA, Diverticulitis, Homicidal, Suicidal, threat to staff... and all critical care pts) @ -No - Lab Data Result diagrams: 05/06/24 15:19 05/06/24 15:19 Lab Results 05/06/24 05/06/24 05/06/24 Range/Units 15:19 15:19 15:19 WBC 9.1 (3.8-10.6) k/uL RBC 3.80 (3.80-5.40) m/uL Hgb 10.7 L (11.4-16.0) gm/dL Hct 35.1 (34.0-46.0) % MCV 92.3 (80.0-100.0) fL MCH 28.2 (25.0-35.0) pg MCHC 30.6 L (31.0-37.0) g/dL RDW 21.6 H (11.5-15.5) % Plt Count 203 (150-450) k/uL MPV 10.4 Neutrophils % 74 % Lymphocytes % 15 % Monocytes % 5 % Eosinophils % 4 % Basophils % 1 % Neutrophils # 6.7 (1.3-7.7) k/uL Lymphocytes # 1.4 (1.0-4.8) k/uL Monocytes # 0.5 (0-1.0) k/uL Eosinophils # 0.4 (0-0.7) k/uL Basophils # 0.1 (0-0.2) k/uL Anisocytosis Moderate Macrocytosis Slight Sodium 131 L (137-145) mmol/L Potassium 5.3 H (3.5-5.1) mmol/L Chloride 102 (98-107) mmol/L Carbon Dioxide 17 L (22-30) mmol/L Anion Gap 12 mmol/L BUN 108 H* (7-17) mg/dL Creatinine 3.71 H (0.52-1.04) mg/dL Est GFR (CKD-EPI)AfAm 12 (>60 ml/min/1.73 sqM) Est GFR (CKD-EPI)NonAf 11 (>60 ml/min/1.73 sqM) Glucose 94 (74-99) mg/dL Calcium 8.7 (8.4-10.2) mg/dL Total Bilirubin 0.8 (0.2-1.3) mg/dL AST 42 H (14-36) U/L ALT 16 (4-34) U/L Alkaline Phosphatase 137 H (38-126) U/L Troponin I (0.000-0.034) ng/mL Total Protein 6.4 (6.3-8.2) g/dL Albumin 3.6 (3.5-5.0) g/dL Amylase 50 (30-110) U/L Lipase 81 (23-300) U/L Urine Color Colorless Urine Appearance Clear (Clear) Urine pH 5.0 (5.0-8.0) Ur Specific Pierson 1.009 (1.001-1.035) Urine Protein Trace H (Negative) Urine Glucose (UA) Negative (Negative) Urine Ketones Negative (Negative) Urine Blood Trace H (Negative) Urine Nitrite Negative (Negative) Urine Bilirubin Negative (Negative) Urine Urobilinogen <2.0 (<2.0) mg/dL Ur Leukocyte Esterase Moderate H (Negative) Urine RBC 6 H (0-5) /hpf Urine WBC 6 H (0-5) /hpf Ur Transition Epith Cell <1 (0-1) /hpf Urine Bacteria Occasional H (None) /hpf Hyaline Casts 1 (0-2) /lpf Urine Mucus Rare H (None) /hpf 05/06/24 Range/Units 15:19 WBC (3.8-10.6) k/uL RBC (3.80-5.40) m/uL Hgb (11.4-16.0) gm/dL Hct (34.0-46.0) % MCV (80.0-100.0) fL MCH (25.0-35.0) pg MCHC (31.0-37.0) g/dL RDW (11.5-15.5) % Plt Count (150-450) k/uL MPV Neutrophils % % Lymphocytes % % Monocytes % % Eosinophils % % Basophils % % Neutrophils # (1.3-7.7) k/uL Lymphocytes # (1.0-4.8) k/uL Monocytes # (0-1.0) k/uL Eosinophils # (0-0.7) k/uL Basophils # (0-0.2) k/uL Anisocytosis Macrocytosis Sodium (137-145) mmol/L Potassium (3.5-5.1) mmol/L Chloride (98-107) mmol/L Carbon Dioxide (22-30) mmol/L Anion Gap mmol/L BUN (7-17) mg/dL Creatinine (0.52-1.04) mg/dL Est GFR (CKD-EPI)AfAm (>60 ml/min/1.73 sqM) Est GFR (CKD-EPI)NonAf (>60 ml/min/1.73 sqM) Glucose (74-99) mg/dL Calcium (8.4-10.2) mg/dL Total Bilirubin (0.2-1.3) mg/dL AST (14-36) U/L ALT (4-34) U/L Alkaline Phosphatase (38-126) U/L Troponin I 0.020 (0.000-0.034) ng/mL Total Protein (6.3-8.2) g/dL Albumin (3.5-5.0) g/dL Amylase (30-110) U/L Lipase (23-300) U/L Urine Color Urine Appearance (Clear) Urine pH (5.0-8.0) Ur Specific Pierson (1.001-1.035) Urine Protein (Negative) Urine Glucose (UA) (Negative) Urine Ketones (Negative) Urine Blood (Negative) Urine Nitrite (Negative) Urine Bilirubin (Negative) Urine Urobilinogen (<2.0) mg/dL Ur Leukocyte Esterase (Negative) Urine RBC (0-5) /hpf Urine WBC (0-5) /hpf Ur Transition Epith Cell (0-1) /hpf Urine Bacteria (None) /hpf Hyaline Casts (0-2) /lpf Urine Mucus (None) /hpf Disposition Clinical Impression: Nausea Disposition: HOME SELF-CARE Condition: Stable Instructions (If sedation given, give patient instructions): Acute Nausea and Vomiting (ED) Additional Instructions: Please do follow-up with your primary care physician in the next day or 2 for recheck. Return for not tolerating fluids, pain, fever, worsening or changing symptoms or other concerns. Use your nausea medicine if needed. Is patient prescribed a controlled substance at d/c from ED?: No Referrals: Musa Feliciano MD [Primary Care Provider] - 1-2 days Time of Disposition: 16:44
[2024-05-06] MEDS: FAMOTIDINE 20 MG/2 ML VIAL IV STA (15:39)
[2024-05-06] MEDS: SODIUM CHLORIDE 0.9% 1,000 ML IV STA (15:39)
[2024-05-06 15:49] LABS: Anisocytosis Moderate; Basophils # (A) 0.1 k/uL (0-0.2); Basophils % (A) 1 %; Eosinophils # (A) 0.4 k/uL (0-0.7); Eosinophils % (A) 4 %; HCT 35.1 % (34.0-46.0); HGB 10.7 gm/dL (11.4-16.0); Lymphocytes # (A) 1.4 k/uL (1.0-4.8); Lymphocytes % (A) 15 %; MCH 28.2 pg (25.0-35.0); MCHC 30.6 g/dL (31.0-37.0); MCV 92.3 fL (80.0-100.0); Macrocytosis Slight; Mean Platelet Volume 10.4; Monocytes # (A) 0.5 k/uL (0-1.0); Monocytes % (A) 5 %; Neutrophils # (A) 6.7 k/uL (1.3-7.7); Neutrophils % (A) 74 %; Platelet Count 203 k/uL (150-450); RDW 21.6 % (11.5-15.5); WBC 9.1 k/uL (3.8-10.6)
[2024-05-06 15:55] LABS: Appearance,Urine Clear (Clear); Bacteria,Urine Occasional /hpf; Bilirubin,Urine Negative (Negative); Blood,Urine Trace (Negative); Color,Urine Colorless; Glucose,Urine (UA) Negative (Negative); Hyaline Casts,Urine 1 /lpf (0-2); Ketones,Urine Negative (Negative); Leukocyte Esterase,Urine Moderate (Negative); Mucus,Urine Rare /hpf; Nitrite,Urine Negative (Negative); Protein,Urine Trace (Negative); RBC,Urine 6 /hpf (0-5); Specific Gravity,Urine 1.009 (1.001-1.035); Transitional Epi Cells,Urine <1 /hpf (0-1); Urobilinogen,Urine <2.0 mg/dL (<2.0); WBC,Urine 6 /hpf (0-5)
[2024-05-06 16:00] LABS: African American GFR (CKD) 12 (>60 ml/min/1.73 sqM); Amylase 50 U/L (30-110); Anion Gap 12 mmol/L; Calcium 8.7 mg/dL (8.4-10.2); Carbon Dioxide 17 mmol/L (22-30); Chloride 102 mmol/L (98-107); Glucose 94 mg/dL (74-99); Lipase 81 U/L (23-300); Non-African American GFR(CKD) 11 (>60 ml/min/1.73 sqM); Sodium 131 mmol/L (137-145); Total Bilirubin 0.8 mg/dL (0.2-1.3)
--- NOTE | 2024-05-06 16:01 | XR ---
EXAMINATION TYPE: XR KUB DATE OF EXAM: 05/06/2024 COMPARISON: NONE HISTORY: Pain TECHNIQUE: Single supine KUB image of the abdomen is obtained FINDINGS: Small bowel demonstrates no evidence for dilatation or air fluid levels. Gas and fecal material is seen in non-distended colon. No convincing evidence for pneumoperitoneum. No unusual calcifications. The lung bases are clear. The osseous structures are intact. Ordoñez catheter is in place. IMPRESSION: 1. Overall nonobstructive bowel gas pattern.
[2024-05-06 16:25] LABS: Blood Urea Nitrogen 108 mg/dL (7-17)
[2024-05-06 16:26] LABS: ALT 16 U/L (4-34); AST 42 U/L (14-36); Albumin 3.6 g/dL (3.5-5.0); Alkaline Phosphatase 137 U/L (38-126); Potassium 5.3 mmol/L (3.5-5.1); Total Protein 6.4 g/dL (6.3-8.2)
[2024-05-06] MEDS: ACETAMINOPHEN TAB 325 MG TAB PO STA (17:29)
[2024-05-06 17:48] VITALS: BP 132/54; PULSE 59; RESP 16; TEMP 98.4
== END 2024-05-06 17:55 | disposition home or self-care (01) ==
LOC: EC 15:00
DX: R11.2 Nausea with vomiting, unspecified (principal); Z88.1 Allergy status to other antibiotic agents; Z88.5 Allergy status to narcotic agent
CPT/HCPCS: 36415; 93005; 80053; 82150; 83690; 84484; 85025; 81001; 74018; 99285; 96374; 96361 ×2; J3490

== ENCOUNTER 2024-05-18 09:54 | Observation (INO) | payer MEDICARE ==
--- NOTE | 2024-05-18 10:26 | ED ---
General Adult HPI - General Chief complaint: Shortness of Breath Stated complaint: VALENTÍN Time Seen by Provider: 05/18/24 09:57 Source: patient, EMS, RN notes reviewed Mode of arrival: EMS Limitations: no limitations - History of Present Illness Initial comments: Patient is an 83-year-old female present to the emergency department with concerns with difficulty breathing. Onset of symptoms was last night. Patient does have cough with clear sputum. Patient denies any history of lung disease or similar symptoms previously. Patient does have some leg swelling however states that is fairly chronic for her. No fever. - Related Data Home Medications Medication Instructions Recorded Confirmed Simvastatin [Zocor] 20 mg PO HS 08/22/22 05/18/24 Ubidecarenone [Co Q-10] 30 mg PO HS 09/06/23 05/18/24 calcitrioL 0.25 mcg PO SA 11/17/23 05/18/24 Apixaban [Eliquis] 2.5 mg PO BID 02/08/24 05/18/24 amLODIPine [Norvasc] 10 mg PO HS 02/08/24 05/18/24 allopurinoL [Zyloprim] 100 mg PO DAILY 05/06/24 05/18/24 Previous Rx's Medication Instructions Recorded Acetaminophen Tab [Tylenol] 650 mg PO Q6HR PRN tab 02/12/24 Torsemide [Demadex] 40 mg PO DAILY #60 tablet 02/12/24 Allergies Allergy/AdvReac Type Severity Reaction Status Date / Time cephalexin Allergy Unknown Verified 05/18/24 12:11 ciprofloxacin [From Cipro] Allergy Unknown Verified 05/18/24 12:11 codeine Allergy Unknown Verified 05/18/24 12:11 Review of Systems ROS Statement: Those systems with pertinent positive or pertinent negative responses have been documented in the HPI. ROS Other: All systems not noted in ROS Statement are negative. Constitutional: Denies: fever, chills Eyes: Denies: eye pain ENT: Reports: congestion. Denies: ear pain Respiratory: Reports: as per HPI, cough, dyspnea Cardiovascular: Denies: chest pain Endocrine: Denies: fatigue Gastrointestinal: Denies: abdominal pain Musculoskeletal: Denies: back pain Past Medical History Past Medical History: Coronary Artery Disease (CAD), Heart Failure, Diabetes Mellitus, Hyperlipidemia, Hypertension, Renal Disease Additional Past Medical History / Comment(s): pacemaker for complete heart block, AVR History of Any Multi-Drug Resistant Organisms: None Reported Past Surgical History: Appendectomy, Cholecystectomy, Coronary Bypass/CABG, Hysterectomy, Pacemaker, Tonsillectomy Past Anesthesia/Blood Transfusion Reactions: No Reported Reaction Type of Cardiac Device: Permanent Pacemaker Device Placement Date:: 02/20/23 Past Psychological History: No Psychological Hx Reported Smoking Status: Former smoker - Past Family History Father History Unknown: Yes Family Medical History: COPD General Exam Limitations: no limitations General appearance: alert, in no apparent distress Eye exam: Present: normal appearance Neck exam: Present: normal inspection Respiratory exam: Present: normal lung sounds bilaterally Cardiovascular Exam: Present: regular rate, normal rhythm GI/Abdominal exam: Present: soft. Absent: tenderness Extremities exam: Present: pedal edema. Absent: calf tenderness Neurological exam: Present: alert Psychiatric exam: Present: normal affect, normal mood Skin exam: Present: normal color Course Vital Signs 05/18/24 10:03 Temperature 97.4 F L Pulse Rate 102 H Respiratory 18 Rate Blood Pressure 142/76 O2 Sat by Pulse 100 Oximetry EKG Findings - EKG Results: EKG: interpreted by ERMD (Left axis. Paced rhythm with a rate of 59. Wide- complex QRS. Nonspecific ST-T.), sinus rhythm Medical Decision Making - Medical Decision Making Was pt. sent in by a medical professional or institution (MICHAEL Ramirez, HOPS FARMWORKER, urgent care, hospital, or correction...) When possible be specific @ -No Did you speak to anyone other than the patient for history (EMS, parent, family, police, friend...)? What history was obtained from this source @ -No Did you review nursing and triage notes (agree or disagree)? Why? @ -I reviewed and agree with nursing and triage notes Were old charts reviewed (outside hosp., previous admission, EMS record, old EKG, old radiological studies, urgent care reports/EKG's, correction records)? Report findings @ -Multiple previous chest x-rays reviewed Differential Diagnosis (chest pain, altered mental status, abdominal pain women, abdominal pain men, vaginal bleeding, weakness, fever, dyspnea, syncope, headache, dizziness, GI bleed, back pain, seizure, CVA, palpatations, mental health, musculoskeletal)? @ -Differential Dyspnea: Coronary syndrome, arrhythmia, tamponade, asthma, COPD, pulmonary embolism, pneumonia, pneumothorax, pulmonary effusion, anaphylaxis, diabetic ketoacidosis, flailed chest, pulmonary contusion, diaphragmatic rupture, anemia, neuromuscular, this is not meant to be an all-inclusive list. EKG interpreted by me (3pts min.). @ -As above X-rays interpreted by me (1pt min.). @ -Chest x-ray shows moderate to large left-sided effusion CT interpreted by me (1pt min.). @ -None done U/S interpreted by me (1pt. min.). @ -None done What testing was considered but not performed or refused? (CT, X-rays, U/S, labs)? Why? @ -None What meds were considered but not given or refused? Why? @ -None Did you discuss the management of the patient with other professionals (professionals i.e. , PA, HOPS FARMWORKER, lab, RT, psych nurse, social media job titles, java groovy developer, teacher, aoc operations intelligence officer, leather case finisher)? Give summary @ -Case discussed with Dr. Cutler who will admit covering Dr. Isaacs Was smoking cessation discussed for >3mins.? @ -No Was critical care preformed (if so, how long)? @ -No Were there social determinants of health that impacted care today? How? (Homelessness, low income, unemployed, alcoholism, drug addiction, transportation, low edu. Level, literacy, decrease access to med. care, penitentiary, rehab)? @ -No Was there de-escalation of care discussed even if they declined (Discuss DNR or withdrawal of care, Hospice)? DNR status @ -No What co-morbidities impacted this encounter? (DM, HTN, Smoking, COPD, CAD, Cancer, CVA, ARF, Chemo, Hep., AIDS, mental health diagnosis, sleep apnea, morbid obesity)? @ -None Was patient admitted / discharged? Hospital course, mention meds given and route, prescriptions, significant lab abnormalities, going to OR and other pert inent info. @ -Patient presents with dyspnea. Patient does have left-sided effusion, possible CHF as well. Borderline troponin changes. Patient will be admitted with cardiac evaluation and further testing. Admission orders written. Undiagnosed new problem with uncertain prognosis? @ -No Drug Therapy requiring intensive monitoring for toxicity (Heparin, Nitro, Insulin, Cardizem)? @ -No Were any procedures done? @ -No Diagnosis/symptom? @ -Pleural effusion Acute, or Chronic, or Acute on Chronic? @ -Acute Uncomplicated (without systemic symptoms) or Complicated (systemic symptoms)? @ -Complicated with borderline elevated troponin Side effects of treatment? @ -No Exacerbation, Progression, or Severe Exacerbation? @ -No Poses a threat to life or bodily function? How? (Chest pain, USA, [place], pneumonia, PE, COPD, DKA, ARF, appy, cholecystitis, CVA, Diverticulitis, Homicidal, Suicidal, threat to staff... and all critical care pts) @ -Threat to cardiac and pulmonary function - Lab Data Result diagrams: 05/18/24 10:44 05/18/24 10:44 Lab Results 05/18/24 05/18/24 05/18/24 Range/Units 10:44 10:44 10:44 WBC 6.6 (3.8-10.6) k/uL RBC 3.76 L (3.80-5.40) m/uL Hgb 11.0 L (11.4-16.0) gm/dL Hct 35.7 (34.0-46.0) % MCV 95.1 (80.0-100.0) fL MCH 29.3 (25.0-35.0) pg MCHC 30.8 L (31.0-37.0) g/dL RDW 21.1 H (11.5-15.5) % Plt Count 183 (150-450) k/uL MPV 9.4 Neutrophils % 68 % Lymphocytes % 17 % Monocytes % 7 % Eosinophils % 5 % Basophils % 1 % Neutrophils # 4.5 (1.3-7.7) k/uL Lymphocytes # 1.1 (1.0-4.8) k/uL Monocytes # 0.5 (0-1.0) k/uL Eosinophils # 0.4 (0-0.7) k/uL Basophils # 0.1 (0-0.2) k/uL Hypochromasia Marked Anisocytosis Moderate Macrocytosis Slight PT 10.0 (10.0-12.5) sec INR 0.9 (<1.2) APTT 27.9 (22.0-30.0) sec Sodium 135 L (137-145) mmol/L Potassium 4.4 (3.5-5.1) mmol/L Chloride 105 (98-107) mmol/L Carbon Dioxide 22 (22-30) mmol/L Anion Gap 8 mmol/L BUN 98 H (7-17) mg/dL Creatinine 3.12 H (0.52-1.04) mg/dL Est GFR (CKD-EPI)AfAm 15 (>60 ml/min/1.73 sqM) Est GFR (CKD-EPI)NonAf 13 (>60 ml/min/1.73 sqM) Glucose 114 H (74-99) mg/dL Plasma Lactic Acid [place] (0.7-2.0) mmol/L Calcium 8.9 (8.4-10.2) mg/dL Magnesium 2.3 (1.6-2.3) mg/dL Total Bilirubin 0.5 (0.2-1.3) mg/dL AST 40 H (14-36) U/L ALT 23 (4-34) U/L Alkaline Phosphatase 219 H (38-126) U/L Troponin I (0.000-0.034) ng/mL NT-Pro-B Natriuret Pep 7030 pg/mL Total Protein 6.3 (6.3-8.2) g/dL Albumin 3.5 (3.5-5.0) g/dL Influenza Type A (PCR) (Not Detectd) Influenza Type B (PCR) (Not Detectd) RSV (PCR) (Not Detectd) SARS-CoV-2 (PCR) (Not Detectd) 05/18/24 05/18/24 05/18/24 Range/Units 10:44 10:44 10:44 WBC (3.8-10.6) k/uL RBC (3.80-5.40) m/uL Hgb (11.4-16.0) gm/dL Hct (34.0-46.0) % MCV (80.0-100.0) fL MCH (25.0-35.0) pg MCHC (31.0-37.0) g/dL RDW (11.5-15.5) % Plt Count (150-450) k/uL MPV Neutrophils % % Lymphocytes % % Monocytes % % Eosinophils % % Basophils % % Neutrophils # (1.3-7.7) k/uL Lymphocytes # (1.0-4.8) k/uL Monocytes # (0-1.0) k/uL Eosinophils # (0-0.7) k/uL Basophils # (0-0.2) k/uL Hypochromasia Anisocytosis Macrocytosis PT (10.0-12.5) sec INR (<1.2) APTT (22.0-30.0) sec Sodium (137-145) mmol/L Potassium (3.5-5.1) mmol/L Chloride (98-107) mmol/L Carbon Dioxide (22-30) mmol/L Anion Gap mmol/L BUN (7-17) mg/dL Creatinine (0.52-1.04) mg/dL Est GFR (CKD-EPI)AfAm (>60 ml/min/1.73 sqM) Est GFR (CKD-EPI)NonAf (>60 ml/min/1.73 sqM) Glucose (74-99) mg/dL Plasma Lactic Acid [place] 0.7 (0.7-2.0) mmol/L Calcium (8.4-10.2) mg/dL Magnesium (1.6-2.3) mg/dL Total Bilirubin (0.2-1.3) mg/dL AST (14-36) U/L ALT (4-34) U/L Alkaline Phosphatase (38-126) U/L Troponin I 0.040 H* (0.000-0.034) ng/mL NT-Pro-B Natriuret Pep pg/mL Total Protein (6.3-8.2) g/dL Albumin (3.5-5.0) g/dL Influenza Type A (PCR) Not Detected (Not Detectd) Influenza Type B (PCR) Not Detected (Not Detectd) RSV (PCR) Not Detected (Not Detectd) SARS-CoV-2 (PCR) Not Detected (Not Detectd) Disposition Clinical Impression: Pleural effusion Disposition: ADMITTED IP TO THIS HOSP Is patient prescribed a controlled substance at d/c from ED?: No Referrals: Musa Feliciano MD [Primary Care Provider] - 1-2 days Time of Disposition: 12:20
[2024-05-18 11:07] LABS: Anisocytosis Moderate; Basophils # (A) 0.1 k/uL (0-0.2); Basophils % (A) 1 %; Eosinophils # (A) 0.4 k/uL (0-0.7); Eosinophils % (A) 5 %; HCT 35.7 % (34.0-46.0); Hypochromasia Marked; Lymphocytes # (A) 1.1 k/uL (1.0-4.8); Lymphocytes % (A) 17 %; MCH 29.3 pg (25.0-35.0); MCHC 30.8 g/dL (31.0-37.0); MCV 95.1 fL (80.0-100.0); Macrocytosis Slight; Mean Platelet Volume 9.4; Monocytes # (A) 0.5 k/uL (0-1.0); Monocytes % (A) 7 %; Neutrophils # (A) 4.5 k/uL (1.3-7.7); Neutrophils % (A) 68 %; Platelet Count 183 k/uL (150-450); RBC 3.76 m/uL (3.80-5.40); RDW 21.1 % (11.5-15.5); WBC 6.6 k/uL (3.8-10.6)
--- NOTE | 2024-05-18 11:19 | XR ---
EXAMINATION TYPE: XR chest 2V DATE OF EXAM: 05/18/2024 COMPARISON: 02/08/2024 HISTORY: Shortness of breath TECHNIQUE: Frontal and lateral views of the chest are obtained. FINDINGS: There is a 2-lead cardiac pacemaker. There are median sternotomy wires. There is a moderate to large left pleural effusion. The right lung is clear. The pulmonary vasculature does not appear congested. 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 IMPRESSION: Interval development of a moderate to large left pleural effusion. IMPRESSION: No acute cardiopulmonary process.
[2024-05-18 11:26] LABS: ALT 23 U/L (4-34); AST 40 U/L (14-36); African American GFR (CKD) 15 (>60 ml/min/1.73 sqM); Albumin 3.5 g/dL (3.5-5.0); Alkaline Phosphatase 219 U/L (38-126); Anion Gap 8 mmol/L; Blood Urea Nitrogen 98 mg/dL (7-17); Calcium 8.9 mg/dL (8.4-10.2); Carbon Dioxide 22 mmol/L (22-30); Chloride 105 mmol/L (98-107); Glucose 114 mg/dL (74-99); Magnesium 2.3 mg/dL (1.6-2.3); Non-African American GFR(CKD) 13 (>60 ml/min/1.73 sqM); Potassium 4.4 mmol/L (3.5-5.1); Sodium 135 mmol/L (137-145); Total Bilirubin 0.5 mg/dL (0.2-1.3); Total Protein 6.3 g/dL (6.3-8.2)
[2024-05-18 11:34] LABS: NT-Pro-B-Type Natriuretic Pept 7030 pg/mL
[2024-05-18 12:07] LABS: INR 0.9 (<1.2); Partial Thromboplastin Time 27.9 sec (22.0-30.0)
[2024-05-18] MEDS: ASPIRIN 325 MG TAB PO STA (12:59)
[2024-05-18] MEDS: FUROSEMIDE 10 MG/ML 4 ML VIAL IV SCH (12:59)
--- NOTE | 2024-05-18 14:23 | P.HPIM ---
History of Present Illness H&P Date: 05/18/24 History of Present Illness: Patient is a 83-year-old female with a past medical history of CAD, diastolic heart failure, hypertension, CKD stage IV with permanent Ordoñez cath, hyperlipidemia, pacemaker due to complete heart block presents to the ED with shortness of breath. She states the shortness of breath occurred last night while resting. She mentioned she had a cough as well and was coughing up clear sputum. Denies any fevers or chills. Patient noted that she felt nauseous and vomited once last night. No blood in the vomit was noticed. He has no recent changes in her diuretics. Says recently she ate some fast food. Denies hemoptysis, chest pain, palpitations. Vitals in the ED temperature 97.4, pulse rate 102, respiratory rate 18, blood pressure 142/76, O2 sat 100 nasal cannula at 3 L. Labs Hgb 11.0, coag studies WNL, sodium 135, BUN 98, creatinine 3.12, glucose 114, AST 40, ALT 23, troponin 0.040, proBNP 7030. Chest x-ray on independent interpretation showed moderate to large left-sided pleural effusion. EKG on independent interpretation showed no signs of ischemic changes. Cardiology, nephrology, pulmonology consulted. Patient is being admitted for shortness of breath secondary to left-sided pleural effusion likely due to heart failure. Pertinent positives and negatives as discussed above, a complete review of systems was performed and all other systems are negative. Vitals: Signs Reviewed Physical Exam: General: nontoxic, no distress, appears at stated age Derm: warm, dry, intact Head: atraumatic, normocephalic, symmetric Eyes: EOMI, no lid lag, anicteric sclera Mouth: no lip lesion, mucus membranes moist Cardiovascular: S1 S2 reg, no murmur, rubs, or gallops, permanent pacemaker in place Lungs: faint breath sounds over left lung, no rhonchi, no rales, no accessory muscle use Abdominal: soft, non-tender to palpataion, no appreciable organomegaly, permanent Ordoñez catheter Extremities: no gross muscle atrophy, no edema, no contractures Neuro: Alert, Oriented, CNII-XII grossly intact, gait normal Psych: well appearing, appropriate affect Assessment and Plan: Patient is a 83-year-old female with past medical history of CAD, diastolic heart failure, A-fib, CKD, hyperlipidemia presenting with shortness of breath. Active: Shortness of breath secondary to left-sided pleural effusion likely due to heart failure History of atrial fibrillation CXR showed moderate to large left pleural effusion. Has history of left-sided pleural effusion. proBNP 7030 Hold home torsemide. Placed on 40 mg IV Lasix Echo ordered Trend troponins. 0.040 Weight checks, strict I+O Continue Eliquis 2.5 mg Continue Monitor on telemetry Pulmonology consulted for possible thoracentesis. Cardiology consulted, pending recommendations. Nephrology consulted, pending recommendation Suspected UTI Patient has permanent Ordoñez catheter Recent episode of nausea and vomiting Urinalysis ordered LLE Cellulitis - IV Rocephin 50 mls @ 100 mls/hr IVP q24hr Chronic: CKD: IV Lasix 40 mg. Cr 3.12 at baseline. Nephrology consulted. Hypertension: Continue home amlodipine 10 mg CAD: Continue aspirin hyperlipidemia: Continue atorvastatin 10 mg at bedtime Gout: 100 mg p.o. daily Pain management: Acetaminophen 650 mg p.o. every 6 as needed for fever or mild pain F: N/A E: Replete as needed N: Heart healthy diet A: Fall precautions. DVT ppx: Eliquis Anticipated discharge place: Pending clinical course Anticipated discharge time: Pending clinical course Attending addendum I have seen and evaluated the patient today. Discussed with the resident and agree with the residents subjective and objective as documented in the resident's note. The assessment and plan was discussed and outlined as below. Patient is a 83-year-old female with a past medical history of coronary disease diastolic heart failure, hypertension, CKD stage IV with permanent Ordoñez cath, hyperlipidemia, pacemaker due to complete heart block, COPD on 2 L nasal can nula, atrial fibrillation presents to the ED with shortness of breath. In the ED patient had a chest x-ray that showed moderate left-sided pleural effusion. Patient's BNP was 7030. First troponin 0.040. Creatinine is 3.12 patient was given IV Lasix. Patient states that her shortness of breath is better. On physical exam patient also had some left lower extremity erythema. Assessment and plan Acute on chronic diastolic heart failure Moderate left-sided pleural effusion I reviewed echocardiogram from January 2024 that showed normal LV function Patient's proBNP is 7030 which is above her baseline Patient also did complain of orthopnea. Although patient states that she is compliant with her diet and her fluid restriction she did tell me that occasionally she does go out and eat and recently did eat at [employer]. Will start the patient on IV Lasix 40 mg twice daily. Hold torsemide Daily weight and strict I's and O's Will repeat echocardiogram Trend troponin. Cardiology consult Will also consult nephrology to help manage diuretics Consult pulmonology as patient will benefit from a thoracentesis Intractable nausea vomiting Resolved CKD stage V Creatinine is at baseline Left lower extremity cellulitis secondary to lymphedema and not due to diabetes mellitus Will start IV Rocephin 1 g every 24 hours Atrial fibrillation Continue with Eliquis Hypertension Resume amlodipine 10 mg p.o. at bedtime Gout Resume allopurinol 1 mg p.o. daily DVT prophylaxis: Eliquis Past Medical History Past Medical History: Coronary Artery Disease (CAD), Heart Failure, Diabetes Mellitus, Hyperlipidemia, Hypertension, Renal Disease Additional Past Medical History / Comment(s): pacemaker for complete heart block, AVR History of Any Multi-Drug Resistant Organisms: None Reported Past Surgical History: Appendectomy, Cholecystectomy, Coronary Bypass/CABG, Hysterectomy, Pacemaker, Tonsillectomy Past Anesthesia/Blood Transfusion Reactions: No Reported Reaction Type of Cardiac Device: Permanent Pacemaker Device Placement Date:: 02/20/23 Past Psychological History: No Psychological Hx Reported Smoking Status: Former smoker - Past Family History Father History Unknown: Yes Family Medical History: COPD Medications and Allergies Home Medications Medication Instructions Recorded Confirmed Type Simvastatin [Zocor] 20 mg PO HS 08/22/22 05/18/24 History Ubidecarenone [Co Q-10] 30 mg PO HS 09/06/23 05/18/24 History calcitrioL 0.25 mcg PO SA 11/17/23 05/18/24 History Apixaban [Eliquis] 2.5 mg PO BID 02/08/24 05/18/24 History amLODIPine [Norvasc] 10 mg PO HS 02/08/24 05/18/24 History Acetaminophen Tab [Tylenol] 650 mg PO Q6HR PRN tab 02/12/24 05/18/24 Rx Torsemide [Demadex] 40 mg PO DAILY #60 tablet 02/12/24 05/18/24 Rx allopurinoL [Zyloprim] 100 mg PO DAILY 05/06/24 05/18/24 History Allergies Allergy/AdvReac Type Severity Reaction Status Date / Time cephalexin Allergy Unknown Verified 05/18/24 12:11 ciprofloxacin [From Cipro] Allergy Unknown Verified 05/18/24 12:11 codeine Allergy Unknown Verified 05/18/24 12:11 Physical Exam Osteopathic Statement: *. No significant issues noted on an osteopathic structural exam other than those noted in the History and Physical/Consult. Vitals: Vital Signs Temp Pulse Resp BP Pulse Ox 05/18/24 10:03 97.4 F L 102 H 18 142/76 100 Intake and Output 05/17/24 05/18/24 05/18/24 22:59 06:59 14:59 Other: Weight 58.967 kg Results CBC & Chem 7: 05/18/24 10:44 05/18/24 10:44 Labs: Abnormal Lab Results - Last 24 Hours (Table) 05/18/24 05/18/24 05/18/24 Range/Units 10:44 10:44 10:44 RBC 3.76 L (3.80-5.40) m/uL Hgb 11.0 L (11.4-16.0) gm/dL MCHC 30.8 L (31.0-37.0) g/dL RDW 21.1 H (11.5-15.5) % Sodium 135 L (137-145) mmol/L BUN 98 H (7-17) mg/dL Creatinine 3.12 H (0.52-1.04) mg/dL Glucose 114 H (74-99) mg/dL AST 40 H (14-36) U/L Alkaline Phosphatase 219 H (38-126) U/L Troponin I 0.040 H* (0.000-0.034) ng/mL
[2024-05-18] MEDS ORDERED: ONDANSETRON 4 MG/2 ML VIAL IVP PRN (18:21)
[2024-05-18 19:31] LABS: Appearance,Urine Clear (Clear); Bacteria,Urine Rare /hpf; Bilirubin,Urine Negative (Negative); Blood,Urine Moderate (Negative); Color,Urine Colorless; Glucose,Urine (UA) Negative (Negative); Ketones,Urine Negative (Negative); Leukocyte Esterase,Urine Large (Negative); Nitrite,Urine Negative (Negative); PH, Urine 5.5 (5.0-8.0); Protein,Urine 1+ (Negative); RBC,Urine 32 /hpf (0-5); Urobilinogen,Urine <2.0 mg/dL (<2.0); WBC,Urine 47 /hpf (0-5)
[2024-05-18] MEDS: amLODIPine 10 MG TAB PO SCH (20:54)
[2024-05-18] MEDS: ATORVASTATIN 10 MG TAB PO SCH (20:54)
[2024-05-18] MEDS: APIXABAN 2.5 MG TABLET PO SCH (20:54)
[2024-05-18] MEDS ORDERED: NON FORMULARY DRUG (Ubidecarenone [Co Q-10] 30 MG Capsule) PO SCH (21:00)
[2024-05-19] MEDS: ASPIRIN 81 MG PO SCH (07:29)
[2024-05-19 07:46] LABS: Anisocytosis Moderate; Basophils % (A) 1 %; Eosinophils # (A) 0.4 k/uL (0-0.7); Eosinophils % (A) 6 %; HCT 33.9 % (34.0-46.0); HGB 10.4 gm/dL (11.4-16.0); Hypochromasia Marked; Lymphocytes # (A) 2.1 k/uL (1.0-4.8); Lymphocytes % (A) 29 %; MCH 29.3 pg (25.0-35.0); MCHC 30.7 g/dL (31.0-37.0); MCV 95.4 fL (80.0-100.0); Macrocytosis Slight; Monocytes # (A) 0.5 k/uL (0-1.0); Monocytes % (A) 6 %; Neutrophils # (A) 4.2 k/uL (1.3-7.7); Neutrophils % (A) 57 %; Platelet Count 181 k/uL (150-450); RBC 3.55 m/uL (3.80-5.40); RDW 21.1 % (11.5-15.5); WBC 7.5 k/uL (3.8-10.6)
[2024-05-19 08:07] LABS: ALT 21 U/L (4-34); AST 34 U/L (14-36); African American GFR (CKD) 15 (>60 ml/min/1.73 sqM); Alkaline Phosphatase 191 U/L (38-126); Anion Gap 7 mmol/L; Blood Urea Nitrogen 96 mg/dL (7-17); Calcium 8.7 mg/dL (8.4-10.2); Carbon Dioxide 24 mmol/L (22-30); Chloride 105 mmol/L (98-107); Glucose 93 mg/dL (74-99); Magnesium 2.2 mg/dL (1.6-2.3); Non-African American GFR(CKD) 13 (>60 ml/min/1.73 sqM); Phosphorus 5.3 mg/dL (2.5-4.5); Potassium 4.3 mmol/L (3.5-5.1); Sodium 136 mmol/L (137-145); Total Bilirubin 0.3 mg/dL (0.2-1.3); Total Protein 5.6 g/dL (6.3-8.2)
--- NOTE | 2024-05-19 08:12 | P.CRDCN ---
History of Present Illness Consult date: 05/19/24 History of present illness: This an 83-year-old female patient who is known to our service from before with extensive cardiovascular history consistent of CAD status post CABG as well as valvular heart disease status post aortic valve replacement using bioprosthetic valve as well as known mitral stenosis and also permanent atrial fibrillation and permanent pacemaker and hypertension and dyslipidemia and heart failure. The patient presented to the hospital with a 24 to 48 hours symptoms of shortness of breath mainly and also bilateral lower extremities edema with no symptoms of chest pain or chest discomfort. Also she has been experiencing cough productive of sputum. No fever and no chills. She stated that she has been compliant with her medications including the current dose of Demadex she was on it. Further investigation performed including an EKG showed underlying atrial fibrillation with ventricular paced rhythm and also she underwent blood work came in to be slightly abnormal with abnormal troponin. NT proBNP came in to be elevated at 7000. The chest x-ray showed at least moderate to large left pleural effusion currently under investigation by ultrasound for possible pleurocentesis. The patient was seen by our service back in January 2024 where she underwent an echo at that point and that revealed normal biventricular systolic function with normally functioning bioprosthetic valve in aortic position with reasonable gradient across the valve but she was found to have moderate mitral stenosis with a mean gradient of 8 mmHg. The physical examination is remarkable for regular rhythm with a systolic and diastolic murmur at the right and left upper sternal border with diminished breathing sounds over the left lung field as well as mild bilateral lower extremities edema Assessment Acute hypoxic respiratory failure At least moderate to large left pleural effusion Heart failure secondary to heart failure with preserved ejection fraction in the setting of mitral stenosis Valvular heart disease as described above status post aortic valve replacement and known mitral stenosis Permanent atrial fibrillation with controlled heart rate Permanent pacemaker Coronary artery disease status post CABG Multiple comorbid conditions Plan Continue current dose of Lasix IV Continue monitoring the kidney function and electrolytes The pleural effusion to be addressed by the pulmonary/critical care team for possible pleurocentesis Anticoagulation is on hold at this point An echocardiogram was performed we will follow-up on that Follow-up with the patient Past Medical History Past Medical History: Coronary Artery Disease (CAD), Heart Failure, Diabetes Mellitus, Hyperlipidemia, Hypertension, Renal Disease Additional Past Medical History / Comment(s): pacemaker for complete heart block, AVR- pig History of Any Multi-Drug Resistant Organisms: None Reported Past Surgical History: Appendectomy, Cholecystectomy, Coronary Bypass/CABG, Hysterectomy, Pacemaker, Tonsillectomy Additional Past Surgical History / Comment(s): CABG x3 11 years Past Anesthesia/Blood Transfusion Reactions: No Reported Reaction Type of Cardiac Device: Permanent Pacemaker Device Placement Date:: 02/20/23 Smoking Status: Former smoker - Past Family History Father History Unknown: Yes Family Medical History: COPD Medications and Allergies Home Medications Medication Instructions Recorded Confirmed Type Simvastatin [Zocor] 20 mg PO HS 08/22/22 05/18/24 History Ubidecarenone [Co Q-10] 30 mg PO HS 09/06/23 05/18/24 History calcitrioL 0.25 mcg PO SA 11/17/23 05/18/24 History Apixaban [Eliquis] 2.5 mg PO BID 02/08/24 05/18/24 History amLODIPine [Norvasc] 10 mg PO HS 02/08/24 05/18/24 History Acetaminophen Tab [Tylenol] 650 mg PO Q6HR PRN tab 02/12/24 05/18/24 Rx Torsemide [Demadex] 40 mg PO DAILY #60 tablet 02/12/24 05/18/24 Rx allopurinoL [Zyloprim] 100 mg PO DAILY 05/06/24 05/18/24 History Allergies Allergy/AdvReac Type Severity Reaction Status Date / Time cephalexin Allergy Unknown Verified 05/18/24 12:11 ciprofloxacin [From Cipro] Allergy Unknown Verified 05/18/24 12:11 codeine Allergy Unknown Verified 05/18/24 12:11 Physical Exam Vitals: Vital Signs Temp Pulse Pulse Resp BP BP Pulse Ox 05/19/24 03:15 98.2 F 60 16 161/64 96 05/18/24 23:49 60 158/57 05/18/24 22:04 98.0 F 57 L 16 166/66 95 05/18/24 19:42 97.8 F 59 L 16 169/67 96 05/18/24 16:00 98.9 F 60 16 144/65 96 05/18/24 15:20 60 17 147/66 99 05/18/24 14:30 60 20 147/67 99 05/18/24 14:15 60 11 L 150/63 99 05/18/24 14:00 60 20 153/66 99 05/18/24 13:45 60 18 148/65 99 05/18/24 13:30 60 24 162/71 99 05/18/24 13:15 60 7 L 151/66 99 05/18/24 13:00 60 30 H 148/72 100 05/18/24 12:45 60 16 149/64 99 05/18/24 12:30 60 21 146/59 100 05/18/24 12:15 60 25 H 128/72 100 05/18/24 12:00 60 23 144/61 100 05/18/24 11:45 60 14 148/60 100 05/18/24 11:30 60 23 141/61 100 05/18/24 11:15 63 11 L 143/60 100 05/18/24 11:00 60 21 146/69 99 05/18/24 10:45 60 19 152/65 99 05/18/24 10:30 59 L 26 H 154/66 99 05/18/24 10:22 60 6 L 05/18/24 10:03 97.4 F L 102 H 18 142/76 100 Intake and Output 05/18/24 05/19/24 05/19/24 22:59 06:59 14:59 Intake Total 118 Output Total 700 700 Balance -582 -700 Intake: Oral 118 Output: Urine 700 700 Other: Voiding Method Indwelling Catheter Indwelling Catheter Weight 58.967 kg 63 kg Results 05/19/24 06:32 05/18/24 10:44 Cardiac Enzymes 05/18/24 05/18/24 05/18/24 Range/Units 10:44 10:44 15:02 AST 40 H (14-36) U/L Troponin I 0.040 H* 0.034 (0.000-0.034) ng/mL 05/18/24 Range/Units 17:56 AST (14-36) U/L Troponin I 0.032 (0.000-0.034) ng/mL Coagulation 05/18/24 Range/Units 10:44 PT 10.0 (10.0-12.5) sec APTT 27.9 (22.0-30.0) sec CBC 05/18/24 05/19/24 Range/Units 10:44 06:32 WBC 6.6 7.5 (3.8-10.6) k/uL RBC 3.76 L 3.55 L (3.80-5.40) m/uL Hgb 11.0 L 10.4 L (11.4-16.0) gm/dL Hct 35.7 33.9 L (34.0-46.0) % Plt Count 183 181 (150-450) k/uL Comprehensive Metabolic Panel 05/18/24 Range/Units 10:44 Sodium 135 L (137-145) mmol/L Potassium 4.4 (3.5-5.1) mmol/L Chloride 105 (98-107) mmol/L Carbon Dioxide 22 (22-30) mmol/L BUN 98 H (7-17) mg/dL Creatinine 3.12 H (0.52-1.04) mg/dL Glucose 114 H (74-99) mg/dL Calcium 8.9 (8.4-10.2) mg/dL AST 40 H (14-36) U/L ALT 23 (4-34) U/L Alkaline Phosphatase 219 H (38-126) U/L Total Protein 6.3 (6.3-8.2) g/dL Albumin 3.5 (3.5-5.0) g/dL Current Medications Generic Name Dose Route Start Last Admin Trade Name Freq PRN Reason Stop Dose Admin Acetaminophen 650 mg 05/18/24 12:22 Acetaminophen Tab 325 Mg Tab PO Q6HR PRN Fever and/ or Mild Pain Allopurinol 100 mg 05/19/24 09:00 Allopurinol 100 Mg Tab PO DAILY FAUSTO Amlodipine Besylate 10 mg 05/18/24 21:00 05/18/24 20:54 Amlodipine 10 Mg Tab PO 10 mg HS FAUSTO Administration Aspirin 81 mg 05/19/24 09:00 05/19/24 07:29 Aspirin 81 Mg PO Not Given DAILY FAUSTO Atorvastatin Calcium 10 mg 05/18/24 21:00 05/18/24 20:54 Atorvastatin 10 Mg Tab PO 10 mg HS FAUSTO Administration Calcitriol 0.25 mcg 05/18/24 12:30 05/18/24 12:59 Calcitriol 0.25 Mcg Cap PO 0.25 mcg SA FAUSTO Administration Furosemide 40 mg 05/18/24 12:30 05/18/24 23:35 Furosemide 10 Mg/Ml 4 Ml Vial IV 40 mg Q12H FAUSTO Administration Ceftriaxone Sodium 1 gm/ 50 mls @ 100 mls/hr 05/18/24 14:15 05/18/24 14:35 Sodium Chloride IVPB 100 mls/hr Q24HR [facility] Administration Protocol Nitroglycerin 0.5 inch 05/19/24 13:00 Nitroglycerin Oint 1 Inch/Gm Packet TOPICAL QID [facility] Ondansetron HCl 4 mg 05/18/24 18:21 Ondansetron 4 Mg/2 Ml Vial IVP Q6HR PRN Nausea And Vomiting Intake and Output 05/18/24 05/19/24 05/19/24 22:59 06:59 14:59 Intake Total 118 Output Total 700 700 Balance -582 -700 Intake: Oral 118 Output: Urine 700 700 Other: Voiding Method Indwelling Catheter Indwelling Catheter Weight 58.967 kg 63 kg 05/19/24 06:32 05/18/24 10:44
[2024-05-19] MEDS: allopurinoL 100 MG TAB PO SCH (08:34)
[2024-05-19] MEDS ORDERED: TORSEMIDE 20 MG TAB PO SCH (09:00)
[2024-05-19] MEDS ORDERED: ASPIRIN 325 MG TAB PO SCH (09:00)
--- NOTE | 2024-05-19 09:32 | US ---
EXAMINATION TYPE: US chest DATE OF EXAM: 05/19/2024 COMPARISON: NONE CLINICAL INDICATION: Female, 83 years old with history of Left pleural effusion; Left chest TECHNIQUE: Targeted ultrasound of the posterior lower left hemithorax EXAM MEASUREMENTS: Left Pleural Effusion pocket size: 10.2 cm Left skin surface to fluid distance: 1.1 cm Lung tissue visualized 4.2 cm in fluid pocket. Left side marked for possible thoracentesis outside the dept. Pulmonologists are able to review the images in the patient?s EMR. IMPRESSIONS: Left pleural effusion as described above.
--- NOTE | 2024-05-19 11:23 | XR ---
EXAMINATION TYPE: XR chest 1V portable DATE OF EXAM: 05/19/2024 COMPARISON: 05/18/2024 HISTORY: Post left thoracentesis TECHNIQUE: Single frontal view of the chest is obtained. FINDINGS: There is a large left pleural effusion unchanged compared to previous. There is no pneumothorax. There is an AICD device. There is been prior CABG surgery. The right lung is clear. 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 IMPRESSION: No change in the moderate left pleural effusion following thoracentesis. There is no pne umothorax.
[2024-05-19] MEDS: NITROGLYCERIN OINT 1 INCH/GM PACKET TOPICAL SCH (11:30)
[2024-05-19] MEDS: APIXABAN 2.5 MG TABLET PO SCH (11:51)
--- NOTE | 2024-05-19 11:56 | P.CNPUL ---
History of Present Illness Consult date: 05/19/24 Requesting physician: Albina Ascencio Reason for consult: dyspnea, hypoxemia, pleural effusion, abnormal CXR/CT Chief complaint: Shortness of breath. History of present illness: Pulmonary consult dated May 19, 2024. 83-year-old female seen in the emergency department, on May 18. She came into the ER, brought in by EMS, complaining of shortness of breath. Apparently the shortness of breath began 1 night prior to admission. She does have a complaint of also cough, with clear phlegm. We were asked to see the patient because of a left-sided pleural effusion. An ultrasound was done, and showed a pocket that was about 10 cm in size. We did a left-sided thoracentesis, and 500 cc of dark yellow/brown fluid was removed from the left pleural space. The patient tolerated the procedure well. Currently, she is on 2 L of oxygen. She did receive Eliquis, but I believe her last dose was yesterday. She has a history of coronary disease, heart failure, diabetes, hyperlipidemia, hypertension, and pacemaker insertion. Current labs include a white count 7.5, hemoglobin 10.4, hematocrit 33.9, platelet count 181,000. Sodium 136, potassium 4.3, chlorides 105, CO2 24, BUN 96, and creatinine 3.11. The patient's N-terminal proBNP was 7030. Troponins were 0.040, 0.034, and 0.032. Chest x-ray showed a left-sided pleural effusion. No pneumothorax was noted after thoracentesis. Review of Systems REVIEW OF SYSTEMS: CONSTITUTIONAL: [Negative.] NEUROLOGIC: [ Negative.] HEENT: [ Negative.] CARDIAC: [Negative.] PULMONARY: Shortness of breath. GI: [Negative.] : [Negative.] RHEUMATOLOGIC: [ Negative.] IMMUNOLOGIC: [ Negative.] ENDOCRINE: [Negative. ] DERMATOLOGIC: [Negative.] Past Medical History Past Medical History: Coronary Artery Disease (CAD), Heart Failure, Diabetes Mellitus, Hyperlipidemia, Hypertension, Renal Disease Additional Past Medical History / Comment(s): pacemaker for complete heart block, AVR- pig History of Any Multi-Drug Resistant Organisms: None Reported Past Surgical History: Appendectomy, Cholecystectomy, Coronary Bypass/CABG, Hysterectomy, Pacemaker, Tonsillectomy Additional Past Surgical History / Comment(s): CABG x3 11 years Past Anesthesia/Blood Transfusion Reactions: No Reported Reaction Type of Cardiac Device: Permanent Pacemaker Device Placement Date:: 02/20/23 Smoking Status: Former smoker - Past Family History Father History Unknown: Yes Family Medical History: COPD Medications and Allergies Home Medications Medication Instructions Recorded Confirmed Type Simvastatin [Zocor] 20 mg PO HS 08/22/22 05/18/24 History Ubidecarenone [Co Q-10] 30 mg PO HS 09/06/23 05/18/24 History calcitrioL 0.25 mcg PO SA 11/17/23 05/18/24 History Apixaban [Eliquis] 2.5 mg PO BID 02/08/24 05/18/24 History amLODIPine [Norvasc] 10 mg PO HS 02/08/24 05/18/24 History Acetaminophen Tab [Tylenol] 650 mg PO Q6HR PRN tab 02/12/24 05/18/24 Rx Torsemide [Demadex] 40 mg PO DAILY #60 tablet 02/12/24 05/18/24 Rx allopurinoL [Zyloprim] 100 mg PO DAILY 05/06/24 05/18/24 History Allergies Allergy/AdvReac Type Severity Reaction Status Date / Time cephalexin Allergy Unknown Verified 05/18/24 12:11 ciprofloxacin [From Cipro] Allergy Unknown Verified 05/18/24 12:11 codeine Allergy Unknown Verified 05/18/24 12:11 Physical Exam Osteopathic Statement: *. No significant issues noted on an osteopathic structural exam other than those noted in the History and Physical/Consult. Vitals: Vital Signs Temp Pulse Pulse Resp BP BP Pulse Ox 05/19/24 08:37 98.6 F 60 16 140/65 95 05/19/24 03:15 98.2 F 60 16 161/64 96 05/18/24 23:49 60 158/57 05/18/24 22:04 98.0 F 57 L 16 166/66 95 05/18/24 19:42 97.8 F 59 L 16 169/67 96 05/18/24 16:00 98.9 F 60 16 144/65 96 05/18/24 15:20 60 17 147/66 99 05/18/24 14:30 60 20 147/67 99 05/18/24 14:15 60 11 L 150/63 99 05/18/24 14:00 60 20 153/66 99 05/18/24 13:45 60 18 148/65 99 05/18/24 13:30 60 24 162/71 99 05/18/24 13:15 60 7 L 151/66 99 05/18/24 13:00 60 30 H 148/72 100 05/18/24 12:45 60 16 149/64 99 05/18/24 12:30 60 21 146/59 100 05/18/24 12:15 60 25 H 128/72 100 05/18/24 12:00 60 23 144/61 100 Intake and Output 05/18/24 05/19/24 05/19/24 22:59 06:59 14:59 Intake Total 118 118 Output Total 700 700 Balance -582 -700 118 Intake: Oral 118 118 Output: Urine 700 700 Other: Voiding Method Indwelling Catheter Indwelling Catheter Indwelling Catheter Weight 58.967 kg 63 kg No acute distress, oriented 3. The patient is quite kyphotic. She is currently on O2, at 2 L. HEENT examination is grossly unremarkable. Mucous membranes are moist. No oral lesions. Neck supple. Full range of motion. No adenopathy thyromegaly or neck vein distention. Cardiovascular examination reveals regular rhythm rate. S1-S2 normal. No S3 or S4. No discernible murmur noted. Heart sounds are distant. Heart rate 60 bpm. Lungs reveal diminished breath sounds on the left. Dullness on percussion on the left. The right lung is clear. No wheezes, rhonchi, or crackles. Abdomen soft bowel sounds are heard. No masses or tenderness. Extremities are intact. No cyanosis clubbing or edema. Skin is without rash or lesion. Neurologic examination is brief but nonfocal. Results - Laboratory Findings CBC and BMP: 05/19/24 06:32 05/19/24 06:32 PT/INR, D-dimer PT 10.0 sec (10.0-12.5) 05/18/24 10:44 INR 0.9 (<1.2) 05/18/24 10:44 Abnormal lab findings: Abnormal Labs 05/18/24 05/18/24 05/18/24 10:44 10:44 10:44 RBC 3.76 L Hgb 11.0 L Hct MCHC 30.8 L RDW 21.1 H Sodium 135 L BUN 98 H Creatinine 3.12 H Glucose 114 H Phosphorus AST 40 H Alkaline Phosphatase 219 H Troponin I 0.040 H* Total Protein Albumin Urine Protein Urine Blood Ur Leukocyte Esterase Urine RBC Urine WBC Urine Bacteria 05/18/24 05/19/24 05/19/24 18:00 06:32 06:32 RBC 3.55 L Hgb 10.4 L Hct 33.9 L MCHC 30.7 L RDW 21.1 H Sodium 136 L BUN 96 H Creatinine 3.11 H Glucose Phosphorus 5.3 H AST Alkaline Phosphatase 191 H Troponin I Total Protein 5.6 L Albumin 3.0 L Urine Protein 1+ H Urine Blood Moderate H Ur Leukocyte Esterase Large H Urine RBC 32 H Urine WBC 47 H Urine Bacteria Rare H - Diagnostic Findings Chest x-ray: image reviewed Assessment and Plan Assessment: Shortness of breath, secondary to CHF, and left-sided pleural effusion. S/P thoracentesis, May 19, 2024, 500 cc removed. History of CAD with previous bypass grafting. History of CHF. History of diabetes mellitus. History of hyperlipidemia. History of hypertension. History of chronic kidney disease. Status post permanent pacemaker implantation. Plan: Plan dated May 19, 2024. The patient underwent left-sided thoracentesis today. 500 cc of fluid was removed from the left pleural space. The fluid will be sent for analysis including cytology, chemistry, and microbiology. The patient tolerated the procedure well. There was not a pneumothorax, after thoracentesis. Labs, x- rays, medications are reviewed. The patient's overall prognosis remains guarded. The patient's blood thinner can be restarted. No additional recommendations are made at this time. We will continue to follow the patient along with you. Time with Patient: Greater than 30
--- NOTE | 2024-05-19 12:21 | PCN ---
PROCEDURE NOTE PROCEDURE PERFORMED: Left-sided thoracentesis. PREOPERATIVE DIAGNOSIS: Left pleural effusion. POSTOPERATIVE DIAGNOSIS: Left pleural effusion. CHILDREN'S TUTOR: Dr. Wu. [employer]ATE PLANNING MANAGER: Dr. Skye Nunez. A time-out was completed verifying correct patient, procedure, site, positioning , and implant (s) or special equipment if applicable. DESCRIPTION OF PROCEDURE: The left posterior chest was marked by ultrasound. Patient was positioned, prepped and draped in usual sterile fashion. Lidocaine was used to anesthetize the area. A Thoracentesis catheter was introduced into the pleural space and fluid was removed. Blood loss was none. A chest x-ray was ordered to evaluate for pneumothorax. We removed roughly 500 cc of dark brown fluid from the left pleural space. The patient tolerated the procedure well. There was no immediate complication. The fluid was sent for analysis including microbiology, cytology, and chemistry. The post thoracentesis chest x-ray was ordered. Again, the patient tolerated the procedure well without any difficulty. No immediate complications. MMODL / IJN: [id number] /
--- NOTE | 2024-05-19 13:15 | P.PN ---
Subjective Progress Note Date: 05/19/24 Hospital course Patient is a 83-year-old female with a past medical history of coronary disease diastolic heart failure, hypertension, CKD stage IV with permanent Ordoñez cath, hyperlipidemia, pacemaker due to complete heart block, COPD on 2 L nasal cannula, atrial fibrillation presents to the ED with shortness of breath. In the ED patient had a chest x-ray that showed moderate left-sided pleural effusio n. Patient's BNP was 7030. First troponin 0.040. Creatinine is 3.12 patient was given IV Lasix. Patient states that her shortness of breath is better. On physical exam patient also had some left lower extremity erythema. Patient did have a left-sided thoracentesis with 500 cc fluid removal that was brownish color. After the procedure patient states that her breathing improved significantly. Subjective Patient seen this morning. She states that her breathing is much better. Assessment and plan Acute on chronic diastolic heart failure Moderate left-sided pleural effusion Status postthoracentesis with 500 cc removal of brownish colored fluid. Patient to follow-up with pulmonology outpatient for cytology Resume Lasix 40 mg IV twice daily Daily weight and strict I's and O's Will repeat echocardiogram Troponins are flat so ACS ruled out Cardiology on board Patient made racist remarks towards her chainman and does not want to see our chainman who is the only chainman available. Will monitor the patient today and plan to discharge the patient tomorrow back on her home diuretic torsemide 40 mg daily Intractable nausea vomiting Resolved CKD stage V Creatinine is at baseline Left lower extremity cellulitis secondary to lymphedema and not due to diabetes mellitus Will start IV Rocephin 1 g every 24 hours Will discharge the patient on Keflex tomorrow Atrial fibrillation Continue with Eliquis Hypertension Resume amlodipine 10 mg p.o. at bedtime Gout Resume allopurinol 1 mg p.o. daily DVT prophylaxis: Eliquis Objective - Vital Signs Vital signs: Vital Signs Temp 97.9 F 05/19/24 11:56 Pulse 64 05/19/24 11:56 Resp 16 05/19/24 11:56 BP 151/74 05/19/24 11:56 Pulse Ox 97 05/19/24 11:56 FiO2 Intake & Output 05/18/24 05/19/24 05/19/24 18:59 06:59 18:59 Intake Total 118 118 Output Total 700 700 Balance -582 -700 118 Weight 58.967 kg 63 kg Intake: Oral 118 118 Output: Urine 700 700 Other: Voiding Method Indwelling Catheter Indwelling Catheter Indwelling Catheter - Labs CBC & Chem 7: 05/19/24 06:32 05/19/24 06:32 Labs: Abnormal Lab Results - Last 24 Hours (Table) 05/18/24 05/19/24 05/19/24 Range/Units 18:00 06:32 06:32 RBC 3.55 L (3.80-5.40) m/uL Hgb 10.4 L (11.4-16.0) gm/dL Hct 33.9 L (34.0-46.0) % MCHC 30.7 L (31.0-37.0) g/dL RDW 21.1 H (11.5-15.5) % Sodium 136 L (137-145) mmol/L BUN 96 H (7-17) mg/dL Creatinine 3.11 H (0.52-1.04) mg/dL Phosphorus 5.3 H (2.5-4.5) mg/dL Alkaline Phosphatase 191 H (38-126) U/L Total Protein 5.6 L (6.3-8.2) g/dL Albumin 3.0 L (3.5-5.0) g/dL Urine Protein 1+ H (Negative) Urine Blood Moderate H (Negative) Ur Leukocyte Esterase Large H (Negative) Urine RBC 32 H (0-5) /hpf Urine WBC 47 H (0-5) /hpf Urine Bacteria Rare H (None) /hpf
--- NOTE | 2024-05-19 15:37 | CA ---
Transthoracic Echo Report Name: Felicitas Nielsen Age: 83 Gender: F : 1940 Exam Date: 05/18/2024 16:08 Exam Location: [place] [facility] Ht (in): 66 Wt (lb): 130 Ordering Physician: Mera Chambers MD Attending/Referring Phys: [employer] Labourer Elham Perez RDCS Procedure CPT: Indications: Heart failure Cardiac Hx: pacemaker CABG, AO VALVE REPLACEMENT Technical Quality: Good Contrast 1: Total Dose (mL): Contrast 2: Total Dose (mL): MEASUREMENTS (Male / Female) Normal Values 2D ECHO LV Diastolic Diameter PLAX 4.6 cm 4.2 - 5.9 / 3.9 - 5.3 cm LV Systolic Diameter PLAX 2.4 cm IVS Diastolic Thickness 1.1 cm 0.6 - 1.0 / 0.6 - 0.9 cm LVPW Diastolic Thickness 1.0 cm 0.6 - 1.0 / 0.6 - 0.9 cm LV Relative Wall Thickness 0.5 RV Internal Dim ED PLAX 3.4 cm LA Systolic Diameter LX 5.2 cm 3.0 - 4.0 / 2.7 - 3.8 cm LA Volume 102.2 cm??? 18 - 58 / 22 - 52 cm??? LA Volume Index 61.7 cm???/m??? 16 - 28 cm???/m??? M-MODE Aortic Root Diameter MM 2.3 cm DOPPLER AV Peak Velocity 273.9 cm/s AV Peak Gradient 30.0 mmHg AV Mean Velocity 176.9 cm/s AV Mean Gradient 14.5 mmHg AV Velocity Time Integral 58.6 cm LVOT Peak Velocity 149.3 cm/s LVOT Peak Gradient 8.9 mmHg LVOT Velocity Time Integral 35.5 cm MV Peak Velocity 233.5 cm/s MV Peak Gradient 21.8 mmHg MV Mean Velocity 114.2 cm/s MV Mean Gradient 6.8 mmHg MV Velocity Time Integral 77.0 cm MV Area PHT 1.7 cm??? MR Peak Velocity 553.1 cm/s MR Peak Gradient 122.4 mmHg Mitral E Point Velocity 210.9 cm/s Mitral A Point Velocity 74.2 cm/s Mitral E to A Ratio 2.8 MV Deceleration Time 442.3 ms TR Peak Velocity 323.5 cm/s TR Peak Gradient 41.9 mmHg Right Ventricular Systolic Press 55.0 mmHg FINDINGS Left Ventricle Left ventricular ejection fraction is estimated at 70 %. Left ventricular cavity size normal. Mildly increased septal wall thickness. No obvious regional wall motion abnormalities. Right Ventricle Mild right ventricular dilatation. Severe pulmonary hypertension. Right ventricular systolic pressure estimated at 55 mm hg. Right Atrium Normal right atrial size. No right atrial thrombus or mass seen. Left Atrium Severely increased left atrial diameter. Severely increased left atrial volume. Mildly increased left atrial area. Mitral Valve Mitral valve thickened. Moderate mitral annular calcification. Moderate mitral stenosis with mean gradient of 7 mmHg. [id number] mitral regurgitation. Aortic Valve Normally functioning bioprosthetic aortic valve without stenosis with a peak velocity of 1.8 m/s, peak gradient 30 mmHg, mean gradient 15 mmHg Tricuspid Valve Structurally normal tricuspid valve. Moderate tricuspid regurgitation. Pulmonic Valve Structurally normal pulmonic valve. Mild pulmonic regurgitation. Pericardium No pericardial effusion. Pleural effusion. Aorta Normal size aortic root and proximal ascending aorta. CONCLUSIONS Normal LV systolic function Bioprosthetic aortic valve with a mean gradient of 15 mmHg across the valve Extremely thickened and calcified mitral valve leaflets with trace mitral stenosis and moderate to severe mitral regurgitation Severe pulmonary hypertension Dilated right ventricle Moderate tricuspid regurgitation Previewed by: Dr. Tacho Tinajero MD (Electronically Signed) Final Date: 19 May 2024 15:36
[2024-05-20 00:03] LABS: Appearance,BF Bloody (Clear)
[2024-05-20] MEDS: ACETAMINOPHEN TAB 325 MG TAB PO PRN (03:44)
[2024-05-20 04:12] VITALS: PULSE 60
[2024-05-20 08:53] VITALS: RESP 16
[2024-05-20 09:11] LABS: Glucose, BF Source Pleural Fluid; Glucose, Body Fluid 121 mg/dL; LDH, Body Fluid Source Pleural Fluid; T. Protein, Body Fluid Source Pleural Fluid; Total Protein, Body Fluid 2930 mg/dL
--- NOTE | 2024-05-20 13:02 | P.PN ---
Subjective Progress Note Date: 05/20/24 This an 83-year-old female patient who is known to our service from before with extensive cardiovascular history consistent of CAD status post CABG as well as valvular heart disease status post aortic valve replacement using bioprosthetic valve as well as known mitral stenosis and also permanent atrial fibrillation and permanent pacemaker and hypertension and dyslipidemia and heart failure. The patient presented to the hospital with a 24 to 48 hours symptoms of shortness of breath mainly and also bilateral lower extremities edema with no symptoms of chest pain or chest discomfort. Also she has been experiencing cough productive of sputum. No fever and no chills. She stated that she has been compliant with her medications including the current dose of Demadex she was on it. Further investigation performed including an EKG showed underlying atrial fibrillation with ventricular paced rhythm and also she underwent blood work came in to be slightly abnormal with abnormal troponin. NT proBNP came in to be elevated at 7000. The chest x-ray showed at least moderate to large left pleural effusion currently under investigation by ultrasound for possible pleurocentesis. The patient was seen by our service back in January 2024 where she underwent an echo at that point and that revealed normal biventricular systolic function with normally functioning bioprosthetic valve in aortic position with reasonable gradient across the valve but she was found to have moderate mitral stenosis with a mean gradient of 8 mmHg. The physical examination is remarkable for regular rhythm with a systolic and diastolic murmur at the right and left upper sternal border with diminished breathing sounds over the left lung field as well as mild bilateral lower extremities edema May 20, 2024 Patient underwent thoracentesis yesterday with drainage of pleural fluid. She is feeling much better since the thoracentesis in terms of her respirations. She denies any chest pain chest pressure or shortness of breath at the moment. Assessment Acute hypoxic respiratory failure At least moderate to large left pleural effusion Heart failure secondary to heart failure with preserved ejection fraction in the setting of mitral stenosis Valvular heart disease as described above status post aortic valve replacement and known mitral stenosis Permanent atrial fibrillation with controlled heart rate Permanent pacemaker Coronary artery disease status post CABG Multiple comorbid conditions Plan Continue current dose of Lasix IV Continue monitoring the kidney function and electrolytes Her anticoagulation has been resumed Follow-up on echocardiogram results Objective - Vital Signs Vital signs: Vital Signs Temp 97.5 F L 05/20/24 08:00 Pulse 60 05/20/24 08:00 Resp 16 05/20/24 08:00 BP 145/70 05/20/24 08:00 Pulse Ox 98 05/20/24 08:00 FiO2 Intake & Output 05/19/24 05/20/24 05/20/24 18:59 06:59 18:59 Intake Total 354 240 Output Total 700 800 Balance -346 -800 240 Weight 56 kg Intake: Oral 354 240 Output: Urine 700 800 Other: Voiding Method Indwelling Catheter Indwelling Catheter Indwelling Catheter # Bowel Movements 2 1 - Labs CBC & Chem 7: 05/19/24 06:32 05/19/24 06:32 Labs: Abnormal Lab Results - Last 24 Hours (Table) 05/19/24 Range/Units 10:15 Fluid Appearance Bloody A (Clear) Microbiology - Last 24 Hours (Table) 05/19/24 10:15 Gram Stain - Preliminary Pleural Fluid
[2024-05-20 13:15] VITALS: BP 160/65; TEMP 97.8
[2024-05-20 13:38] VITALS: BMI 19.9
--- NOTE | 2024-05-20 14:42 | P.PN ---
Subjective Progress Note Date: 05/20/24 83-year-old female seen in the emergency department, on May 18. She came into the ER, brought in by EMS, complaining of shortness of breath. Apparently the shortness of breath began 1 night prior to admission. She does have a complaint of also cough, with clear phlegm. We were asked to see the patient because of a left-sided pleural effusion. An ultrasound was done, and showed a pocket that was about 10 cm in size. We did a left-sided thoracentesis, and 500 cc of dark yellow/brown fluid was removed from the left pleural space. The patient tolerated the procedure well. Currently, she is on 2 L of oxygen. She did receive Eliquis, but I believe her last dose was yesterday. She has a history of coronary disease, heart failure, diabetes, hyperlipidemia, hypertension, and pacemaker insertion. Current labs include a white count 7.5, hemoglobin 10.4, hematocrit 33.9, platelet count 181,000. Sodium 136, potassium 4.3, chlorides 105, CO2 24, BUN 96, and creatinine 3.11. The patient's N-terminal proBNP was 7030. Troponins were 0.040, 0.034, and 0.032. Chest x-ray showed a left-sided pleural effusion. No pneumothorax was noted after thoracentesis. The patient is seen today May 20, 2024 in follow-up on the selective care unit. She is currently sitting up in bed. Awake and alert in no acute distress. She denies any worsening shortness of breath, cough or congestion. She is m aintaining good O2 saturations in the 90s on 2 L/min per nasal cannula. She remains on IV diuretics. She did undergo a left-sided thoracentesis yesterday. Follow-up chest x-ray revealed no evidence of pneumothorax. 500 cc of dark brown fluid was removed. Fluid analysis and cytology pending. Suspect transudate. She is currently net -1.1 L balance. Objective - Vital Signs Vital signs: Vital Signs Temp 97.8 F 05/20/24 12:00 Pulse 60 05/20/24 12:00 Resp 16 05/20/24 12:00 BP 160/65 05/20/24 12:00 Pulse Ox 97 05/20/24 12:00 FiO2 Intake & Output 05/19/24 05/20/24 05/20/24 18:59 06:59 18:59 Intake Total 354 480 Output Total 700 800 600 Balance -346 -800 -120 Weight 56 kg 56 kg Intake: Oral 354 480 Output: Urine 700 800 600 Other: Voiding Method Indwelling Catheter Indwelling Catheter Indwelling Catheter # Bowel Movements 2 1 - Exam GENERAL EXAM: Alert, pleasant 83-year-old female, on 2 L nasal cannula, fairly comfortable in no apparent distress. HEAD: Normocephalic. EYES: Normal reaction of pupils, equal size. NOSE: Clear with pink turbinates. THROAT: No erythema or exudates. NECK: No masses, no JVD. CHEST: No chest wall deformity. LUNGS: Equal air entry with crackles in the left lung base. CVS: S1 and S2 normal with no audible murmur, regular rhythm. ABDOMEN: No hepatosplenomegaly, normal bowel sounds, no guarding or rigidity. SPINE: Severe kyphosis SKIN: No rashes CENTRAL NERVOUS SYSTEM: No focal deficits, tone is normal in all 4 extremities. EXTREMITIES: There is no peripheral edema. No clubbing, no cyanosis. Peripheral pulses are intact. - Labs CBC & Chem 7: 05/19/24 06:32 05/19/24 06:32 Labs: Abnormal Lab Results - Last 24 Hours (Table) 05/19/24 Range/Units 10:15 Fluid Appearance Bloody A (Clear) Microbiology - Last 24 Hours (Table) 05/19/24 10:15 Gram Stain - Preliminary Pleural Fluid Assessment and Plan Assessment: Shortness of breath, secondary to CHF, and left-sided pleural effusion. S/P thoracentesis, May 19, 2024, 500 cc removed. History of CAD with previous bypass grafting. History of CHF. History of diabetes mellitus. History of hyperlipidemia. History of hypertension. History of chronic kidney disease. Status post permanent pacemaker implantation. Plan: The patient was seen and evaluated Medications reviewed Currently in a negative balance Continued on IV diuretics Titrate down the FiO2 as tolerated Increase her activity as tolerated Will continue to follow I have personally seen and examined the patient, performed the documentation and the assessment and plan as written. Number of minutes spent on the visit: 10.
--- NOTE | 2024-05-20 15:15 | P.DS ---
Providers Date of admission: 05/18/24 12:20 Attending physician: Albina Ascencio MD Consults: 05/18/24 12:20 Consult Physician Routine Consulting Provider: Tacho Tinajero Consult Reason/Comments: effusion Do you want consulting provider notified?: Yes 05/18/24 13:14 Consult Physician Routine Consulting Provider: Eddy Wu Consult Reason/Comments: mod-lrg left pleural effusion Do you want consulting provider notified?: Yes 05/18/24 13:20 Consult Physician Routine Consulting Provider: Natali Barton Consult Reason/Comments: heart failure Do you want consulting provider notified?: Yes Primary care physician: [facility] Course: Hospital course Patient is a 83-year-old female with a past medical history of coronary disease diastolic heart failure, hypertension, CKD stage IV with permanent Ordoñez cath, hyperlipidemia, pacemaker due to complete heart block, COPD on 2 L nasal cannula, atrial fibrillation presents to the ED with shortness of breath. In the ED patient had a chest x-ray that showed moderate left-sided pleural effusion. Patient's BNP was 7030. First troponin 0.040. Creatinine is 3.12 patient was given IV Lasix. Patient states that her shortness of breath is better. On physical exam patient also had some left lower extremity erythema. Patient did have a left-sided thoracentesis with 500 cc fluid removal that was brownish color. After the procedure patient states that her breathing improved significantly. Patient had an echocardiogram done that showed moderate to severe MR and moderate TR with severe pulmonary hypertension. I discussed with cardiology who said patient is stable for discharge from their standpoint. Patient also reporting that she is feeling better and wants to go home. Patient will be discharged on her home diuretic which is torsemide 40 mg daily. Patient instructed to follow-up with her woodworking craftsman. Patient also instructed to follow-up with pulmonology for the cytology results from the pleural fluid. Patient also had left lower extremity cellulitis. She will be discharged on Keflex for 5 more days. Physical exam General examination - Alert and Oriented 3 in NAD, appears chronically debilitated Heart - + S1S2 no murmurs Lungs -diminished breath sounds bilaterally Abdomen soft NT ND +ve BS Extremities -+2 pitting edema bilateral lower extremity with discoloration consistent with lymphedema TURN DOWN WORKER - Moving all 4 extremities spontaneously Psych - Calm and cooperative Discharge diagnoses Acute on chronic diastolic heart failure Moderate to severe MR Moderate TR Severe pulmonary hypertension Moderate left-sided pleural effusion status postthoracentesis with 500 cc removal CKD stage V: Creatinine at baseline Left lower extremity cellulitis secondary to lymphedema Atrial fibrillation Hypertension Gout I spent a total of 33 minutes with this discharge Patient Condition at Discharge: Fair Plan - Discharge Summary Discharge Rx Participant: No New Discharge Prescriptions: New Aspirin 81 mg PO DAILY 30 Days #30 tab Cephalexin [Keflex] 500 mg PO Q12HR 5 Days #10 cap Continue Ubidecarenone [Co Q-10] 30 mg PO HS calcitrioL 0.25 mcg PO SA amLODIPine [Norvasc] 10 mg PO HS Apixaban [Eliquis] 2.5 mg PO BID Acetaminophen Tab [Tylenol] 650 mg PO Q6HR PRN tab PRN Reason: Fever And/ Or Pain Torsemide [Demadex] 40 mg PO DAILY #60 tablet allopurinoL [Zyloprim] 100 mg PO DAILY Simvastatin [Zocor] 20 mg PO HS Discharge Medication List Simvastatin [Zocor] 20 mg PO HS 08/22/22 [History] Ubidecarenone [Co Q-10] 30 mg PO HS 09/06/23 [History] calcitrioL 0.25 mcg PO SA 11/17/23 [History] Apixaban [Eliquis] 2.5 mg PO BID 02/08/24 [History] amLODIPine [Norvasc] 10 mg PO HS 02/08/24 [History] Acetaminophen Tab [Tylenol] 650 mg PO Q6HR PRN tab 02/12/24 [Rx] Torsemide [Demadex] 40 mg PO DAILY #60 tablet 02/12/24 [Rx] allopurinoL [Zyloprim] 100 mg PO DAILY 05/06/24 [History] Aspirin 81 mg PO DAILY 30 Days #30 tab 05/20/24 [Rx] Cephalexin [Keflex] 500 mg PO Q12HR 5 Days #10 cap 05/20/24 [Rx] Follow up Appointment(s)/Referral(s): Musa Feliciano MD [Primary Care Provider] - 1-2 days Eddy Wu DO [Doctor of Osteopathic Medicine] - 1 Week Tacho Tinajero MD [STAFF PHYSICIAN] - 1 Week Discharge Disposition: HOME WITH HOME HEALTH SERVICES
== END 2024-05-20 18:07 | disposition home health service (06) ==
LOC: EC 09:54 → 3SCARD 12:20
PROVIDERS: ADMIT Family Medicine; ATTEND Family Medicine
DX: J90 Pleural effusion, not elsewhere classified (principal); I13.2 Hypertensive heart and chronic kidney disease with heart failure and with stage 5 chronic kidney disease, or end stage renal disease; I50.33 Acute on chronic diastolic (congestive) heart failure; N18.5 Chronic kidney disease, stage 5; J96.01 Acute respiratory failure with hypoxia; I48.21 Permanent atrial fibrillation; I27.20 Pulmonary hypertension, unspecified; I08.1 Rheumatic disorders of both mitral and tricuspid valves; L03.116 Cellulitis of left lower limb; M10.9 Gout, unspecified; I25.10 Atherosclerotic heart disease of native coronary artery without angina pectoris; E11.22 Type 2 diabetes mellitus with diabetic chronic kidney disease; E78.5 Hyperlipidemia, unspecified; Z11.52 Encounter for screening for COVID-19; Z87.891 Personal history of nicotine dependence; Z95.0 Presence of cardiac pacemaker; Z95.1 Presence of aortocoronary bypass graft; Z95.2 Presence of prosthetic heart valve; Z96.0 Presence of urogenital implants; Z79.899 Other long term (current) drug therapy; Z79.01 Long term (current) use of anticoagulants; Z88.1 Allergy status to other antibiotic agents; Z88.5 Allergy status to narcotic agent
CPT/HCPCS: 96376 ×3; 96365; 96375; 99285; 36415; 93005; 93306; 83880; 80053 ×2; 89050; 83605; 83735 ×2; 84100; 84484; 85025 ×2; 85610; 85730; 81001; 87070; 87205; 87116; 87102; 87206; 82945; 83615; 84157; 84145; 87636; 71045; 71046; 76604; 32555; G0378 ×3; J1940 ×3; J0696 ×3; 87496; 87498; 87502; 87529; 87634; 87635; 87798; 88108; 88305

== ENCOUNTER 2024-05-26 01:35 | Inpatient (IN) | payer MEDICARE ==
--- NOTE | 2024-05-26 03:04 | ED ---
General Adult HPI - General Chief complaint: Shortness of Breath Stated complaint: Difficulty Breathing Time Seen by Provider: 05/26/24 01:55 Source: patient, EMS, RN notes reviewed, old records reviewed Mode of arrival: EMS Limitations: no limitations - History of Present Illness Initial comments: Patient is an 83-year-old female who presents emergency department complaining of shortness of breath. Patient states she was recently admitted for similar complaints. Is a history of CAD, congestive heart failure, pleural effusions. Also history of hypertension hyperlipidemia. Did require thoracentesis on last admission. States shortness of breath has been worse over the last 1 to 2 days. Worse with exertion and at rest. Is chronically on 2 L nasal cannula. Has a pacemaker in place as well. Vital signs are within acceptable limits on her baseline nasal cannula. Denies abdominal pain, chest pain, nausea, vomiting, diarrhea. Denies cough or congestion. No other acute complaints at this time.Patient denies worsening orthopnea. States she is chronically swollen bilateral lower extremities. Denies any paroxysmal nocturnal dyspnea. - Related Data Home Medications Medication Instructions Recorded Confirmed Simvastatin [Zocor] 20 mg PO HS 08/22/22 05/24/24 Ubidecarenone [Co Q-10] 30 mg PO HS 09/06/23 05/24/24 calcitrioL 0.25 mcg PO SA 11/17/23 05/24/24 Apixaban [Eliquis] 2.5 mg PO BID 02/08/24 05/24/24 amLODIPine [Norvasc] 10 mg PO HS 02/08/24 05/24/24 allopurinoL [Zyloprim] 100 mg PO DAILY 05/06/24 05/24/24 Previous Rx's Medication Instructions Recorded Acetaminophen Tab [Tylenol] 650 mg PO Q6HR PRN tab 02/12/24 Torsemide [Demadex] 40 mg PO DAILY #60 tablet 02/12/24 Aspirin 81 mg PO DAILY 30 Days #30 tab 05/20/24 clindamycin HCL 300 mg PO BID 5 Days #10 capsule 05/20/24 Allergies Allergy/AdvReac Type Severity Reaction Status Date / Time cephalexin Allergy Unknown Verified 05/26/24 01:48 ciprofloxacin [From Cipro] Allergy Unknown Verified 05/26/24 01:48 codeine Allergy Unknown Verified 05/26/24 01:48 Review of Systems ROS Statement: Those systems with pertinent positive or pertinent negative responses have been documented in the HPI. Review of Systems: CONST: Denies fever EYES: Denies blurry vision ENT: Denies nasal congestion C/V: Denies Chest pain RESP: Endorses shortness of breath GI: Denies abdominal pain : Denies dysuria SKIN: Denies rash. MSK: Denies joint pain. NEURO: Denies headache ROS Other: All systems not noted in ROS Statement are negative. Past Medical History Past Medical History: Coronary Artery Disease (CAD), Heart Failure, Diabetes Mellitus, Hyperlipidemia, Hypertension, Renal Disease Additional Past Medical History / Comment(s): pacemaker for complete heart block, AVR- pig History of Any Multi-Drug Resistant Organisms: None Reported Past Surgical History: Appendectomy, Cholecystectomy, Coronary Bypass/CABG, Hysterectomy, Pacemaker, Tonsillectomy Additional Past Surgical History / Comment(s): CABG x3 11 years Past Anesthesia/Blood Transfusion Reactions: No Reported Reaction Type of Cardiac Device: Permanent Pacemaker Device Placement Date:: 02/20/23 Past Psychological History: No Psychological Hx Reported Smoking Status: Never smoker Past Alcohol Use History: None Reported Past Drug Use History: None Reported - Past Family History Father History Unknown: Yes Family Medical History: COPD General Exam - General Exam Comments Initial Comments: General: Appears in no acute distress. HEAD: Normal with no signs of head trauma. EYES: PERRLA, EOMI, conjunctiva normal, no discharge. ENT: Hearing grossly intact, normal oropharynx. RESPIRATORY: Clear breath sounds bilaterally. No wheezes, rales, or rhonchi. No hypoxia on baseline 2 L nasal cannula of oxygen. C/V: Regular rate and rhythm. S1 and S2 auscultated, no acute lower extremity pitting edema bilaterally, peripheral pulses 2+ and intact throughout ABD: Abd is soft, nontender, nondistended EXT: Normal range of motion, no obvious deformity SKIN: No rashes or lesions observed on exposed skin. NEURO: Alert and oriented x 4 Limitations: no limitations Course Vital Signs 05/26/24 01:37 Temperature 98.1 F Pulse Rate 61 Respiratory 19 Rate Blood Pressure 145/61 O2 Sat by Pulse 96 Oximetry Medical Decision Making - Medical Decision Making Was pt. sent in by a medical professional or institution (, PA, TITLE CHECKER, urgent care, hospital, or retirement...) When possible be specific @ -No Did you speak to anyone other than the patient for history (EMS, parent, family, police, friend...)? What history was obtained from this source @ -No Did you review nursing and triage notes (agree or disagree)? Why? @ -I reviewed and agree with nursing and triage notes Were old charts reviewed (outside hosp., previous admission, EMS record, old EKG, old radiological studies, urgent care reports/EKG's, retirement records)? Report findings @ -Old charts reviewed from previous admission in April 2024. Admitted for pleural effusion at that time. EKG relatively unchanged. Differential Diagnosis (chest pain, altered mental status, abdominal pain women, abdominal pain men, vaginal bleeding, weakness, fever, dyspnea, syncope, headach e, dizziness, GI bleed, back pain, seizure, CVA, palpatations, mental health, musculoskeletal)? @ -Differential Dyspnea: Coronary syndrome, arrhythmia, tamponade, asthma, COPD, pulmonary embolism, p neumonia, pneumothorax, pulmonary effusion, anaphylaxis, diabetic ketoacidosis, flailed chest, pulmonary contusion, diaphragmatic rupture, anemia, neuromuscular, this is not meant to be an all-inclusive list. EKG interpreted by me (3pts min.). @ -As above X-rays interpreted by me (1pt min.). @ -Chest x-ray consistent with at least moderate size left pleural effusion. Possible pulmonary vascular congestion as well. CT interpreted by me (1pt min.). @ -None done U/S interpreted by me (1pt. min.). @ -None done What testing was considered but not performed or refused? (CT, X-rays, U/S, labs)? Why? @ -None What meds were considered but not given or refused? Why? @ -None Did you discuss the management of the patient with other professionals (professionals i.e. , PA, TITLE CHECKER, lab, RT, psych nurse, social security benefits interviewer, [place] police officer, teacher, corporate officer, adult protective caseworker)? Give summary @ - I spoke with the admitting provider Dr. Garcia, [facility] who accepted the admission. Was smoking cessation discussed for >3mins.? @ -No Was critical care preformed (if so, how long)? @ -No Were there social determinants of health that impacted care today? How? (Homelessness, low income, unemployed, alcoholism, drug addiction, transportation, low edu. Level, literacy, decrease access to med. care, fpc, rehab)? @ -No Was there de-escalation of care discussed even if they declined (Discuss DNR or withdrawal of care, Hospice)? DNR status @ -No What co-morbidities impacted this encounter? (DM, HTN, Smoking, COPD, CAD, Cancer, CVA, ARF, Chemo, Hep., AIDS, mental health diagnosis, sleep apnea, morbid obesity)? @ -CHF, CAD, chronic hypoxic respiratory failure Was patient admitted / discharged? Hospital course, mention meds given and route, prescriptions, significant lab abnormalities, going to OR and other pertinent info. @ -Patient presents for dyspnea. Has been ongoing for 1 to 2 days. Recently had thoracentesis done last week. We will obtain cardiopulmonary workup. Vital signs currently within acceptable limits on baseline 2 L nasal cannula. Patient was in agreement this plan. It was brought to my attention there was concern for possible tick attached to the patient's distal left clavicle. After removing her shirt, I was able to visualize an area where an engorged tick was present. Tick including head was removed. Lyme testing ordered. Patient empirically given a dose of doxycycline. EKG shows chronic paced rhythm.Chest x-ray reveals left-sided pleural effusion with pulmonary vascular congestion. Labs remarkable for hemolyzed specimen for potassium which was resent. Potassium within normal limits. Patient has CKD which appears to be stable at her baseline. Troponin minimally elevated at 0.046 which patient does have a history of near this level. We will continue to trend. BNP is elevated to 5300. Viral swabs negative. This patient is still symptomatic and this may be secondary to the pleural effusion versus CHF I would like to admit the patient. She was in agreement this plan. IV Lasix initiated. Patient given an aspirin 324 mg as well. Will trend the troponin. Patient given doxycycline empirically for Lyme disease prophylaxis in the presence of the tick removal. Lyme testing sent. I spoke with the admitting provider Dr. Garcia, [facility] who accepted the admission. Undiagnosed new problem with uncertain prognosis? @ -No Drug Therapy requiring intensive monitoring for toxicity (Heparin, Nitro, Insulin, Cardizem)? @ -No Were any procedures done? @ -No Diagnosis/symptom? @ -Tick bite with subsequent removal of tick, CHF, left-sided pleural effusion, elevated troponin Acute, or Chronic, or Acute on Chronic? @ -Acute Uncomplicated (without systemic symptoms) or Complicated (systemic symptoms)? @ -Complicated Side effects of treatment? @ -None Exacerbation, Progression, or Severe Exacerbation] @ -No Poses a threat to life or bodily function? @ -Yes - Lab Data Result diagrams: 05/26/24 02:08 05/26/24 04:04 Lab Results 05/26/24 05/26/24 05/26/24 Range/Units 02:08 02:08 02:08 WBC 9.6 (3.8-10.6) k/uL RBC 3.61 L (3.80-5.40) m/uL Hgb 10.7 L (11.4-16.0) gm/dL Hct 34.6 (34.0-46.0) % MCV 95.9 (80.0-100.0) fL MCH 29.7 (25.0-35.0) pg MCHC 31.0 (31.0-37.0) g/dL RDW 20.6 H (11.5-15.5) % Plt Count 243 (150-450) k/uL MPV 10.6 Neutrophils % 59 % Lymphocytes % 26 % Monocytes % 8 % Eosinophils % 6 % Basophils % 1 % Neutrophils # 5.6 (1.3-7.7) k/uL Lymphocytes # 2.5 (1.0-4.8) k/uL Monocytes # 0.8 (0-1.0) k/uL Eosinophils # 0.5 (0-0.7) k/uL Basophils # 0.1 (0-0.2) k/uL Hypochromasia Marked Anisocytosis Moderate Macrocytosis Slight PT 10.3 (10.0-12.5) sec INR 0.9 (<1.2) APTT 26.6 (22.0-30.0) sec Sodium 131 L (137-145) mmol/L Potassium 6.0 H (3.5-5.1) mmol/L Chloride 101 (98-107) mmol/L Carbon Dioxide 21 L (22-30) mmol/L Anion Gap 9 mmol/L BUN 98 H (7-17) mg/dL Creatinine 3.01 H (0.52-1.04) mg/dL Est GFR (CKD-EPI)AfAm 16 (>60 ml/min/1.73 sqM) Est GFR (CKD-EPI)NonAf 14 (>60 ml/min/1.73 sqM) Glucose 236 H (74-99) mg/dL Calcium 8.4 (8.4-10.2) mg/dL Magnesium 2.2 (1.6-2.3) mg/dL Total Bilirubin 0.8 (0.2-1.3) mg/dL AST 54 H (14-36) U/L ALT 23 (4-34) U/L Alkaline Phosphatase 214 H (38-126) U/L Troponin I (0.000-0.034) ng/mL NT-Pro-B Natriuret Pep 5380 pg/mL Total Protein 6.5 (6.3-8.2) g/dL Albumin 3.4 L (3.5-5.0) g/dL Influenza Type A (PCR) (Not Detectd) Influenza Type B (PCR) (Not Detectd) RSV (PCR) (Not Detectd) SARS-CoV-2 (PCR) (Not Detectd) 05/26/24 05/26/24 05/26/24 Range/Units 02:08 02:15 04:04 WBC (3.8-10.6) k/uL RBC (3.80-5.40) m/uL Hgb (11.4-16.0) gm/dL Hct (34.0-46.0) % MCV (80.0-100.0) fL MCH (25.0-35.0) pg MCHC (31.0-37.0) g/dL RDW (11.5-15.5) % Plt Count (150-450) k/uL MPV Neutrophils % % Lymphocytes % % Monocytes % % Eosinophils % % Basophils % % Neutrophils # (1.3-7.7) k/uL Lymphocytes # (1.0-4.8) k/uL Monocytes # (0-1.0) k/uL Eosinophils # (0-0.7) k/uL Basophils # (0-0.2) k/uL Hypochromasia Anisocytosis Macrocytosis PT (10.0-12.5) sec INR (<1.2) APTT (22.0-30.0) sec Sodium (137-145) mmol/L Potassium 4.6 (3.5-5.1) mmol/L Chloride (98-107) mmol/L Carbon Dioxide (22-30) mmol/L Anion Gap mmol/L BUN (7-17) mg/dL Creatinine (0.52-1.04) mg/dL Est GFR (CKD-EPI)AfAm (>60 ml/min/1.73 sqM) Est GFR (CKD-EPI)NonAf (>60 ml/min/1.73 sqM) Glucose (74-99) mg/dL Calcium (8.4-10.2) mg/dL Magnesium (1.6-2.3) mg/dL Total Bilirubin (0.2-1.3) mg/dL AST (14-36) U/L ALT (4-34) U/L Alkaline Phosphatase (38-126) U/L Troponin I 0.046 H* (0.000-0.034) ng/mL NT-Pro-B Natriuret Pep pg/mL Total Protein (6.3-8.2) g/dL Albumin (3.5-5.0) g/dL Influenza Type A (PCR) Not Detected (Not Detectd) Influenza Type B (PCR) Not Detected (Not Detectd) RSV (PCR) Not Detected (Not Detectd) SARS-CoV-2 (PCR) Not Detected (Not Detectd) - EKG Data -: EKG Interpreted by Me EKG Comments: 12-lead Electrocardiogram Interpretation Note EKG was reviewed and interpreted by myself. 12-lead ECG performed at 0149 is interpreted by me as revealing paced rhythm at a rate of 66 beats per minute. Atypical axis. QRS duration of 170 ms, QTc is 486 ms.. R wave progression across the precordium was satisfactory. By my interpretation this EKG is non- diagnostic for acute ischemia. Disposition Clinical Impression: Tick bite with subsequent removal of tick, Congestive heart failure, Dyspnea, Pleural effusion, Elevated troponin Disposition: ADMITTED IP TO THIS HOSP Condition: Stable Referrals: Musa Feliciano MD [Primary Care Provider] - 1-2 days Time of Disposition: 04:08
[2024-05-26 03:07] LABS: ALT 23 U/L (4-34); AST 54 U/L (14-36); African American GFR (CKD) 16 (>60 ml/min/1.73 sqM); Albumin 3.4 g/dL (3.5-5.0); Alkaline Phosphatase 214 U/L (38-126); Anion Gap 9 mmol/L; Blood Urea Nitrogen 98 mg/dL (7-17); Calcium 8.4 mg/dL (8.4-10.2); Carbon Dioxide 21 mmol/L (22-30); Chloride 101 mmol/L (98-107); Glucose 236 mg/dL (74-99); Magnesium 2.2 mg/dL (1.6-2.3); Non-African American GFR(CKD) 14 (>60 ml/min/1.73 sqM); Sodium 131 mmol/L (137-145); Total Bilirubin 0.8 mg/dL (0.2-1.3); Total Protein 6.5 g/dL (6.3-8.2)
[2024-05-26 03:08] LABS: Anisocytosis Moderate; Basophils # (A) 0.1 k/uL (0-0.2); Basophils % (A) 1 %; Eosinophils # (A) 0.5 k/uL (0-0.7); Eosinophils % (A) 6 %; HCT 34.6 % (34.0-46.0); HGB 10.7 gm/dL (11.4-16.0); Hypochromasia Marked; Lymphocytes # (A) 2.5 k/uL (1.0-4.8); Lymphocytes % (A) 26 %; MCH 29.7 pg (25.0-35.0); MCV 95.9 fL (80.0-100.0); Macrocytosis Slight; Mean Platelet Volume 10.6; Monocytes # (A) 0.8 k/uL (0-1.0); Monocytes % (A) 8 %; Neutrophils # (A) 5.6 k/uL (1.3-7.7); Neutrophils % (A) 59 %; Platelet Count 243 k/uL (150-450); RBC 3.61 m/uL (3.80-5.40); RDW 20.6 % (11.5-15.5); WBC 9.6 k/uL (3.8-10.6)
[2024-05-26 03:15] LABS: NT-Pro-B-Type Natriuretic Pept 5380 pg/mL
--- NOTE | 2024-05-26 03:44 | XR ---
EXAM: XR Chest, 2 Views CLINICAL HISTORY: XR Reason: difficulty breathing TECHNIQUE: Frontal and lateral views of the chest. COMPARISON: May 19, 2024 FINDINGS: Lungs: See below. Pleural space: Increased density in the lower left hemithorax consistent with moderate to large pleural effusion and adjacent atelectasis or pneumonia, increased since previous. No pneumothorax. Heart: Moderate mitral valve calcification, unchanged. Mediastinum: Unremarkable. Normal mediastinal contour. Bones/joints: There are multiple sternal wires. The cardiac silhouette is mildly enlarged, similar to previous. Moderate osteoarthritic changes in both shoulders. No acute fracture. Tubes, lines and devices: There is a pacemaker on the left with leads running to the right side of the heart, unchanged. Upper abdomen: There is no pneumoperitoneum under the diaphragm. IMPRESSION: 1. Increased density in the lower left hemithorax consistent with moderate to large pleural effusion and adjacent atelectasis or pneumonia, increased since previous. 2. There are multiple sternal wires. The cardiac silhouette is mildly enlarged, similar to previous. 3. There is a pacemaker on the left with leads running to the right side of the heart, unchanged.
[2024-05-26 03:53] LABS: INR 0.9 (<1.2); Partial Thromboplastin Time 26.6 sec (22.0-30.0); Prothrombin Time 10.3 sec (10.0-12.5)
[2024-05-26] MEDS: DOXYCYCLINE 100 MG CAP PO STA (04:08)
[2024-05-26] MEDS: ASPIRIN 81 MG PO STA (04:08)
[2024-05-26] MEDS: FUROSEMIDE 10 MG/ML 4 ML VIAL IV STA (04:09)
[2024-05-26] MEDS ORDERED: NALOXONE 0.4 MG/ML 1 ML VIAL IV PRN (04:22)
--- NOTE | 2024-05-26 06:34 | P.HPIM ---
History of Present Illness H&P Date: 05/26/24 Chief Complaint: shortness of breath Patient is a 83-year-old female with hypertension , COPD on 2 L of oxygen , aifb s/p pacemaker history of CAD s/p CABG, Diastolic CHF (ejection fraction 70%, AV valve replacement (porcine) she presented to the ED with shortness of breath via EMS. Patient notes that shortness of breath occurred a day prior despite being on home oxygen as they were visiting family. Following day, shortness of breath worsened and had an as sociated nonproductive cough which led patient to go to the ED. patient claims shortness of breath is chronic in nature waxes and wanes, she is bedbound and feels short of breath just sitting up in bed. She also reports chronic cough productive of clear whitish phlegm denies any fevers or chills. Denies any known sick contacts. Patient also noticed worsening bilateral leg edema, she was recently treated for right leg cellulitis and finished a 5-day course of oral antibiotics at home after discharge. Patient denies chest pain, dizziness, loss of consciousness, any headache, vision changes, PND, . Patient was last seen in the ED in 05/18 for the same complaint and was noted to have a left pleural effusion that required thoracentesis 500 cc were removed , pathology result showed no cytology evidence of cancer Chest x-ray increased density in the left lower hemithorax consistent with moderate to large pleural effusion and adjacent atelectasis or pneumonia, worse than the previous chest x-ray, pacemaker noted on the left with leads running to the right side of the heart. EKG pacemaker set rate at 66 with noted PVCs QRS at 170 ms with a normal QTc of 4 8 6 ms. WBC 9.6 hemoglobin 10.7 hematocrit 34.6 platelet 243 PT 10.3 PTT 26.6 INR 0.9 sodium 131 potassium 6.0 BUN 98 creatinine 3.1 AST 54 ALT 23 alk phos 214 troponin 0.046 BNP 5380 albumin 3.4. ED documentation reviewed Review of systems: Pertinent positives and negatives as discussed in HPI, a complete review of systems was performed and all other systems are negative. Family history: Mother had CHF. Dad due to encephalitis Social history: Tobacco: Denies smoking history Alcohol: Denies alcohol intake history Recreational drugs: Denies illicit drug use Travel: No recent travel Occupation: Retired Physical examination: Vital signs reviewed General: non toxic, no distress, appears at stated age, normal weight Derm: no unusual rashes/lesions, warm, bruises on bilateral, upper extremities Head: atraumatic, normocephalic, symmetric Eyes: EOMI, no lid lag, anicteric sclera, pupils equal round reactive to light ENT: Nose and ears atraumatic Neck: No cervical lymphadenopathy, trachea midline, supple Mouth: no lip lesion, mucus membranes moist Cardiovascular: S1S2 reg, 3 out of 6 holosystolic murmur louder at the left sternal border and apex, bilateral leg edema +2 Lungs: Bibasilar crackles, decreased breath sounds in all lung marino no rhonchi, no rales, no accessory muscle use Abdominal: soft, nontender to palpation, no guarding Ext: muscle strength 3/5 lower extremities , 4/5 bilateral upper extremities, no gross muscle atrophy, no contractures, bilateral lower extremity +3 pitting edema, tenderness at left lower extremity at the joyner area. pedal pulses difficult to asses due to pedal edema, capillary refill immediate Neuro: CN II-XI grossly intact, no gross focal neuro deficits Psych: Alert, oriented, appropriate affect and mood Assessment/Plan: 83-year-old female with diastolic CHF, pulmonary hypertension moderate to severe tricuspid and mitral valve regurg, she is bedbound coming in with recurrent left pleural effusion with worsening shortness of breath. #. Shortness of breath due to acute on chronic diastolic CHF exacerbation with left pleural effusion Bilateral lower extremity edema likely due to CHF Daily weights Fluid restrictions 2 L daily Monitor vital signs Cardiac monitoring Tropes slightly elevated patient denies any chest pain continue to trend, patient already on Eliquis for A-fib IV Lasix 60 mg IV push twice daily Consult pulmonology Most recent thoracentesis done was about a week ago 500 cc removed cytology showed no evidence of cancer cells proBNP elevated 5380 Chest x-ray showed evidence of worsening large left pleural effusion Patient is bedbound increases her likelihood of DVT however currently having bilateral leg edema with known diastolic CHF and pleural effusion most likely as a cause of bilateral leg edema, in addition to that patient on Eliquis for A- fib. Check a D-dimer if positive consider bilateral lower extremity Doppler ultrasound #. Hyperkalemia secondary to hemolyzed sample Repeat potassium is 4.6 #. Elevated troponins Placed on cardiac telemetry Order serial troponin Continue aspirin 81 mg p.o. daily, continue with statin Hyperlipidemia Continue with statin Close monitoring of liver enzymes currently AST slightly elevated 54 alkaline phosphatase 214, if this continues to trend up consider holding statin This is most likely secondary to passive hepatic congestion from right-sided heart failure #. Hyperglycemia Check HbA1c Placed on low-dose insulin sliding scale Accu-Cheks before meals and at bedtime Chronic conditions: Hyperlipidemia CKD stage IV hypertension CAD DVT prophylaxis: On Eliquis for afib The patient is admitted with an anticipated more than than 2 midnight stay for evaluation of shortness of breath CODE STATUS: Full Discussed with: Patient and patient's Anticipated discharge place: Home Past Medical History Past Medical History: Coronary Artery Disease (CAD), Heart Failure, Diabetes Mellitus, Hyperlipidemia, Hypertension, Renal Disease Additional Past Medical History / Comment(s): pacemaker for complete heart block, AVR- pig History of Any Multi-Drug Resistant Organisms: None Reported Past Surgical History: Appendectomy, Cholecystectomy, Coronary Bypass/CABG, Hysterectomy, Pacemaker, Tonsillectomy Additional Past Surgical History / Comment(s): CABG x3 11 years Past Anesthesia/Blood Transfusion Reactions: No Reported Reaction Type of Cardiac Device: Permanent Pacemaker Device Placement Date:: 02/20/23 Past Psychological History: No Psychological Hx Reported Smoking Status: Never smoker Past Alcohol Use History: None Reported Past Drug Use History: None Reported - Past Family History Father History Unknown: Yes Family Medical History: COPD Medications and Allergies Home Medications Medication Instructions Recorded Confirmed Type Simvastatin [Zocor] 20 mg PO HS 08/22/22 05/24/24 History Ubidecarenone [Co Q-10] 30 mg PO HS 09/06/23 05/24/24 History calcitrioL 0.25 mcg PO SA 11/17/23 05/24/24 History Apixaban [Eliquis] 2.5 mg PO BID 02/08/24 05/24/24 History amLODIPine [Norvasc] 10 mg PO HS 02/08/24 05/24/24 History Acetaminophen Tab [Tylenol] 650 mg PO Q6HR PRN tab 02/12/24 05/24/24 Rx Torsemide [Demadex] 40 mg PO DAILY #60 tablet 02/12/24 05/24/24 Rx allopurinoL [Zyloprim] 100 mg PO DAILY 05/06/24 05/24/24 History Aspirin 81 mg PO DAILY 30 Days #30 tab 05/20/24 05/24/24 Rx clindamycin HCL 300 mg PO BID 5 Days #10 capsule 05/20/24 05/24/24 Rx Allergies Allergy/AdvReac Type Severity Reaction Status Date / Time cephalexin Allergy Unknown Verified 05/26/24 01:48 ciprofloxacin [From Cipro] Allergy Unknown Verified 05/26/24 01:48 codeine Allergy Unknown Verified 05/26/24 01:48 Physical Exam Vitals: Vital Signs Temp Pulse Resp BP Pulse Ox 05/26/24 01:37 98.1 F 61 19 145/61 96 Intake and Output 05/25/24 05/25/24 05/26/24 14:59 22:59 06:59 Other: Weight 58.513 kg Results CBC & Chem 7: 05/26/24 02:08 05/26/24 04:04 Labs: Abnormal Lab Results - Last 24 Hours (Table) 05/26/24 05/26/24 05/26/24 Range/Units 02:08 02:08 02:08 RBC 3.61 L (3.80-5.40) m/uL Hgb 10.7 L (11.4-16.0) gm/dL RDW 20.6 H (11.5-15.5) % Sodium 131 L (137-145) mmol/L Potassium 6.0 H (3.5-5.1) mmol/L Carbon Dioxide 21 L (22-30) mmol/L BUN 98 H (7-17) mg/dL Creatinine 3.01 H (0.52-1.04) mg/dL Glucose 236 H (74-99) mg/dL AST 54 H (14-36) U/L Alkaline Phosphatase 214 H (38-126) U/L Troponin I 0.046 H* (0.000-0.034) ng/mL Albumin 3.4 L (3.5-5.0) g/dL Assessment and Plan Assessment: I have seen and evaluated the patient today. I Discussed the case with the resident and agree with the resident's findings I edited the assessment and plan as necessary as documented in the resident's note
[2024-05-26] MEDS ORDERED: ACETAMINOPHEN TAB 325 MG TAB PO PRN (06:51)
[2024-05-26] MEDS ORDERED: DEXTROSE 50% SYRINGE 50 ML IVP PRN ×2 (06:54)
[2024-05-26 07:08] LABS: Glucose,Whole Blood 141 mg/dL (70-110)
[2024-05-26] MEDS: INSULIN ASPART (NovoLOG) 100 UNIT/ML VIAL SQ SCH (07:26)
[2024-05-26] MEDS ORDERED: TORSEMIDE 20 MG TAB PO SCH (09:00)
[2024-05-26] MEDS ORDERED: APIXABAN 2.5 MG TABLET PO SCH (09:00)
[2024-05-26] MEDS: FUROSEMIDE 10 MG/ML 10 ML VIAL IV SCH (09:07)
[2024-05-26] MEDS: ASPIRIN 81 MG PO SCH (09:09)
[2024-05-26] MEDS: ONDANSETRON 4 MG/2 ML VIAL IVP PRN (10:04)
--- NOTE | 2024-05-26 10:12 | US ---
EXAMINATION TYPE: US chest DATE OF EXAM: 05/26/2024 COMPARISON: XR 05/26/2024, US 05/19/2024 CLINICAL INDICATION: Female, 83 years old with history of Markings for thoracentesis by pulmonary sta ff; TECHNIQUE: Targeted ultrasound of the posterior lower bilateral hemithoraces EXAM MEASUREMENTS: Right Pleural Effusion pocket size: 0 cm. No fluid seen. Left Pleural Effusion pocket size: 8.7 cm Left skin surface to fluid distance: 2.1 cm Right side WAS NOT marked for possible thoracentesis outside the dept. Left side WAS marked for possible thoracentesis outside the dept. Pulmonologists are able to review the images in the patient?s EMR. IMPRESSION: Left pleural effusion localized and marked for possible thoracentesis outside the department.
--- NOTE | 2024-05-26 11:23 | P.CNPUL ---
History of Present Illness Consult date: 05/26/24 Requesting physician: Zuri Garcia Reason for consult: dyspnea, pleural effusion, abnormal CXR/CT Chief complaint: Shortness of breath History of present illness: This is a pleasant 83-year-old female patient with a history of coronary artery disease, diastolic congestive heart failure, diabetes mellitus, hypertension, hyperlipidemia, atrial fibrillation anticoagulated with Eliquis, previous pacemaker insertion. She also has a history of left-sided pleural effusion and was here on May 19, 2024 with a left pleural effusion and a left-sided thoracentesis was done with 500 cc of yellow-brown fluid removed. Transudate. This was negative for malignancy. She came back to the emergency room early this morning with increasing shortness of breath. Chest x-ray does show a recurrent pleural effusion on the left. Ultrasound of the chest reveals an 8.7 cm pocket. White count 9.6. Hemoglobin 10.7. Platelets 243. Sodium 131. Potassium 4.6. Bicarb 21. BUN 98. Creatinine 3.01. Glucose 236. Troponin 0.046. 0.052. proBNP 5380. Viral screen was negative. She has been initiated on Lasix 60 mg IV every 12 hours. She is seen in consultation in the emergency department. She is awake and alert in no acute distress. She is maintaining O2 saturations in the 90s on 3 L/min per nasal cannula. She does have significant kyphoscoliosis. Review of Systems REVIEW OF SYSTEMS: CONSTITUTIONAL: Denies any recent significant weight loss or weight gain. EYES: Denies change in vision. EARS, NOSE, MOUTH, THROAT: Denies headaches, denies sore throat. CARDIOVASCULAR: Denies chest pain, palpitations or syncopal episodes. RESPIRATORY: Positive for shortness of breath, no cough, congestion or hemoptysis. GASTROINTESTINAL: Denies change in appetite, denies abdominal pain GENITOURINARY: Denies hematuria, denies infections. MUSKULOSKELETAL: Denies pain, denies swelling. INTEGUMENTARY: Denies rash, denies eczema. NEUROLOGICAL: Denies recent memory loss, no recent seizure activity. PSYCHIATRIC: Denies anxiety, denies depression. HEMATOLOGIC/LYMPHATIC: Denies anemia, denies enlarged lymph nodes. Past Medical History Past Medical History: Coronary Artery Disease (CAD), Heart Failure, Diabetes Mellitus, Hyperlipidemia, Hypertension, Renal Disease Additional Past Medical History / Comment(s): pacemaker for complete heart block, AVR- pig History of Any Multi-Drug Resistant Organisms: None Reported Past Surgical History: Appendectomy, Cholecystectomy, Coronary Bypass/CABG, Hysterectomy, Pacemaker, Tonsillectomy Additional Past Surgical History / Comment(s): CABG x3 11 years Past Anesthesia/Blood Transfusion Reactions: No Reported Reaction Type of Cardiac Device: Permanent Pacemaker Device Placement Date:: 02/20/23 Past Psychological History: No Psychological Hx Reported Smoking Status: Never smoker Past Alcohol Use History: None Reported Past Drug Use History: None Reported - Past Family History Father History Unknown: Yes Family Medical History: COPD Medications and Allergies Home Medications Medication Instructions Recorded Confirmed Type Simvastatin [Zocor] 20 mg PO HS 08/22/22 05/26/24 History Ubidecarenone [Co Q-10] 30 mg PO HS 09/06/23 05/26/24 History calcitrioL 0.25 mcg PO SA 11/17/23 05/26/24 History Apixaban [Eliquis] 2.5 mg PO BID 02/08/24 05/26/24 History amLODIPine [Norvasc] 10 mg PO HS 02/08/24 05/26/24 History Acetaminophen Tab [Tylenol] 650 mg PO Q6HR PRN tab 02/12/24 05/26/24 Rx Torsemide [Demadex] 40 mg PO DAILY #60 tablet 02/12/24 05/26/24 Rx allopurinoL [Zyloprim] 100 mg PO DAILY 05/06/24 05/26/24 History Aspirin 81 mg PO DAILY 30 Days #30 tab 05/20/24 05/26/24 Rx Allergies Allergy/AdvReac Type Severity Reaction Status Date / Time cephalexin Allergy Unknown Verified 05/26/24 10:19 ciprofloxacin [From Cipro] Allergy Unknown Verified 05/26/24 10:19 codeine Allergy Unknown Verified 05/26/24 10:19 Physical Exam Vitals: Vital Signs Temp Pulse Resp BP Pulse Ox 05/26/24 10:00 60 20 155/75 99 05/26/24 09:00 60 18 145/69 98 05/26/24 06:00 60 15 140/92 98 05/26/24 03:30 60 21 146/66 97 05/26/24 02:30 60 20 144/66 96 05/26/24 01:37 98.1 F 61 19 145/61 96 Intake and Output 05/25/24 05/26/24 05/26/24 22:59 06:59 14:59 Output Total 550 Balance -550 Output: Urine 550 Other: Weight 58.513 kg GENERAL EXAM: Alert, pleasant 83-year-old female with a severe kyphosis, on 3 L nasal cannula, fairly comfortable in no apparent distress. HEAD: Normocephalic. EYES: Normal reaction of pupils, equal size. NOSE: Clear with pink turbinates. THROAT: No erythema or exudates. NECK: No masses, no JVD. CHEST: No chest wall deformity. LUNGS: Equal air entry with this, diminished left lung base. CVS: S1 and S2 normal with no audible murmur, regular rhythm. ABDOMEN: No hepatosplenomegaly, normal bowel sounds, no guarding or rigidity. SPINE: Severe kyphosis. SKIN: No rashes. CENTRAL NERVOUS SYSTEM: No focal deficits, tone is normal in all 4 extremities. EXTREMITIES: There is no peripheral edema. No clubbing, no cyanosis. Peripheral pulses are intact. Results - Laboratory Findings CBC and BMP: 05/26/24 02:08 05/26/24 04:04 PT/INR, D-dimer PT 10.3 sec (10.0-12.5) 05/26/24 02:08 INR 0.9 (<1.2) 05/26/24 02:08 D-Dimer 4.19 mg/L FEU (<0.60) H 05/26/24 07:50 Abnormal lab findings: Abnormal Labs 05/26/24 05/26/24 05/26/24 02:08 02:08 02:08 RBC 3.61 L Hgb 10.7 L RDW 20.6 H D-Dimer Sodium 131 L Potassium 6.0 H Carbon Dioxide 21 L BUN 98 H Creatinine 3.01 H Glucose 236 H POC Glucose (mg/dL) AST 54 H Alkaline Phosphatase 214 H Troponin I 0.046 H* Albumin 3.4 L 05/26/24 05/26/24 05/26/24 07:05 07:50 07:50 RBC Hgb RDW D-Dimer 4.19 H Sodium Potassium Carbon Dioxide BUN Creatinine Glucose POC Glucose (mg/dL) 141 H AST Alkaline Phosphatase Troponin I 0.052 H* Albumin - Diagnostic Findings Chest x-ray: image reviewed Assessment and Plan Assessment: Acute hypoxemic respiratory failure secondary to an acute exacerbation of diastolic congestive heart failure Recurrent left-sided pleural effusion with recent left-sided thoracentesis on May 19, 2024 with 500 cc of fluid removed. Transudate. Cytology negative. History of CAD with previous bypass grafting History of diastolic congestive heart failure Diabetes mellitus Hyperlipidemia Hypertension Chronic kidney disease Atrial fibrillation anticoagulated with Eliquis Previous permanent pacemaker implantation Plan: The patient was seen and evaluated Chest x-ray, ultrasound of the chest, labs and medications reviewed Will plan for left-sided thoracentesis today Eliquis on hold Continue with IV diuretics Titrate the FiO2 as tolerated We will continue to follow and make further recommendations based on her clinical status I have personally seen and examined the patient, performed the documentation and the assessment and plan as written. Number of minutes spent on the visit: 20.
--- NOTE | 2024-05-26 12:43 | XR ---
EXAMINATION TYPE: XR chest 1V DATE OF EXAM: 05/26/2024 12:37 PM CLINICAL INDICATION:Female, 83 years old with history of thoracentesis; COMPARISON: Chest radiographs from same day TECHNIQUE: XR chest 1V Frontal view of the chest. FINDINGS: Lungs/Pleura: There centimeters small visceral pleural line present in the left lung apex. No right p neumothorax. Decrease in left pleural effusion. No right pleural effusion. Pulmonary vascularity: Unr emarkable. Heart/mediastinum: Cardiomediastinal silhouette is unremarkable. Musculoskeletal: No acute osseous pathology. IMPRESSION: Decrease in left pleural effusion. There is a trace pneumothorax suggested.
[2024-05-26 12:54] LABS: Glucose,Whole Blood 124 mg/dL (70-110)
--- NOTE | 2024-05-26 13:03 | OP ---
OPERATIVE REPORT DATE OF SERVICE : PROCEDURE PERFORMED: Left-sided thoracentesis. PREOPERATIVE DIAGNOSIS: Left-sided pleural effusion. POSTOPERATIVE DIAGNOSIS: Left-sided pleural effusion. ANESTHESIA USED: 2 mL of 1% lidocaine. DESCRIPTION OF PROCEDURE: The patient was placed in a sitting upright position, the area below the left scapula was prepared in a sterile fashion. Drapes were applied. The area was locally anesthetized by ultrasound earlier, and marking was placed at the 8th intercostal space and tip of the scapula. The area was then locally anesthetized, and a 26-gauge needle advanced into the pleural space until the fluid was obtained and was noted to be serosanguineous. Then a small tiny incision was made, and a standard thoracentesis catheter and needle advanced at the same site into the pleural space, and as the fluid was obtained, the catheter was advanced over the needle, and the needle was pulled out of the pleural space. Freely flowing fluid was removed from the pleural space, roughly 1100 cc of serosanguineous fluid was removed from the left pleural space. The procedure was well tolerated, no immediate complications. Chest x-ray was ordered postoperatively and is pending at the time of dictation. Fluid was not sent for diagnostic studies since it was sent on her last thoracentesis. MMODL / IJN: [id number] /
[2024-05-26 13:15] VITALS: PULSE 60
[2024-05-26 13:37] LABS: Appearance,Urine Clear (Clear); Bilirubin,Urine Negative (Negative); Blood,Urine Small (Negative); Color,Urine Colorless; Glucose,Urine (UA) Negative (Negative); Ketones,Urine Negative (Negative); Leukocyte Esterase,Urine Moderate (Negative); Mucus,Urine Rare /hpf; Nitrite,Urine Negative (Negative); Protein,Urine Negative (Negative); RBC,Urine 10 /hpf (0-5); Specific Gravity,Urine 1.008 (1.001-1.035); Urobilinogen,Urine <2.0 mg/dL (<2.0); WBC,Urine 15 /hpf (0-5)
--- NOTE | 2024-05-26 13:53 | P.CRDCN ---
History of Present Illness Consult date: 05/26/24 History of present illness: HISTORY OF PRESENTING ILLNESS 83-year-old with PMH of CAD s/p CABG, valvular heart disease s/p aortic valve replacement with bioprosthetic aortic valve, mitral stenosis and also pulmonary atrial fibrillation, permanent pacemaker, hypertension dyslipidemia and heart failure. Last week she was in the hospital with CHF exacerbation and large left lower lung effusion status post paracentesis. This time she had similar complaints of increased work of breathing and increased shortness of breath. On admission chest x-ray showed repeated fluid collection in the left lower lung pleural space which was moderate to large in size. Intraven thoracentesis again with Dr. Cagle today REVIEW OF SYSTEMS 14 point review of system is negative except what is mentioned above in HPI. PHYSICAL EXAMINATION Vital signs reviewed. Head: Normocephalic. Eyes: Sclerae nonicteric. Neck: Brisk carotid upstroke, no jugular venous distention. Lungs: Diminished breath sounds in left lung base, mild crackles audible Heart: Irregularly irregular, diastolic and systolic murmur audible. Abdomen: Soft nontender, positive bowel sounds. Extremities: No edema, intact distal pulses. Neuro: Alert, oritented, no focal deficits. Detailed neuro exam was not perform ed. ASSESSMENT Recurrent left-sided pleural effusion s/p thoracentesis last week and today Acute hypoxic respiratory failure due to above Acute HFpEF exacerbation S/p bioprosthetic aortic valve mitral stenosis CAD s/p CABG Persistent atrial fibrillation CKD stage IV PLAN Continue aspirin, statin, amlodipine Lasix 60 mg IV twice daily. Appreciate nephrology recommendations. She needs to go home on intensified medical therapy as compared to what she came in with. She had a recurrent left thoracentesis. If this happens again in near future, she should be evaluated for pleurodesis Ramu Sanchez MD, FACC, RPVI Thank you for allowing [facility] to participate in this patient's care. Feel free to reach out in case of any followup questions. Past Medical History Past Medical History: Coronary Artery Disease (CAD), Heart Failure, Diabetes Mellitus, Hyperlipidemia, Hypertension, Renal Disease Additional Past Medical History / Comment(s): pacemaker for complete heart block, AVR- pig History of Any Multi-Drug Resistant Organisms: None Reported Past Surgical History: Appendectomy, Cholecystectomy, Coronary Bypass/CABG, Hysterectomy, Pacemaker, Tonsillectomy Additional Past Surgical History / Comment(s): CABG x3 11 years Past Anesthesia/Blood Transfusion Reactions: No Reported Reaction Type of Cardiac Device: Permanent Pacemaker Device Placement Date:: 02/20/23 Past Psychological History: No Psychological Hx Reported Smoking Status: Never smoker Past Alcohol Use History: None Reported Past Drug Use History: None Reported - Past Family History Father History Unknown: Yes Family Medical History: COPD Medications and Allergies Home Medications Medication Instructions Recorded Confirmed Type Simvastatin [Zocor] 20 mg PO HS 08/22/22 05/26/24 History Ubidecarenone [Co Q-10] 30 mg PO HS 09/06/23 05/26/24 History calcitrioL 0.25 mcg PO SA 11/17/23 05/26/24 History Apixaban [Eliquis] 2.5 mg PO BID 02/08/24 05/26/24 History amLODIPine [Norvasc] 10 mg PO HS 02/08/24 05/26/24 History Acetaminophen Tab [Tylenol] 650 mg PO Q6HR PRN tab 02/12/24 05/26/24 Rx Torsemide [Demadex] 40 mg PO DAILY #60 tablet 02/12/24 05/26/24 Rx allopurinoL [Zyloprim] 100 mg PO DAILY 05/06/24 05/26/24 History Aspirin 81 mg PO DAILY 30 Days #30 tab 05/20/24 05/26/24 Rx Allergies Allergy/AdvReac Type Severity Reaction Status Date / Time cephalexin Allergy Unknown Verified 05/26/24 10:19 ciprofloxacin [From Cipro] Allergy Unknown Verified 05/26/24 10:19 codeine Allergy Unknown Verified 05/26/24 10:19 Physical Exam Vitals: Vital Signs Temp Pulse Resp BP Pulse Ox 05/26/24 13:15 60 18 140/68 99 05/26/24 11:00 68 18 150/72 97 05/26/24 10:00 60 20 155/75 99 05/26/24 09:00 60 18 145/69 98 05/26/24 06:00 60 15 140/92 98 05/26/24 03:30 60 21 146/66 97 05/26/24 02:30 60 20 144/66 96 05/26/24 01:37 98.1 F 61 19 145/61 96 Intake and Output 05/25/24 05/26/24 05/26/24 22:59 06:59 14:59 Output Total 1550 Balance -1550 Output: Urine 550 Other 1000 Other: Weight 58.513 kg Results 05/26/24 02:08 05/26/24 04:04 Cardiac Enzymes 05/26/24 05/26/24 05/26/24 Range/Units 02:08 02:08 07:50 AST 54 H (14-36) U/L Troponin I 0.046 H* 0.052 H* (0.000-0.034) ng/mL 05/26/24 Range/Units 10:35 AST (14-36) U/L Troponin I 0.049 H* (0.000-0.034) ng/mL Coagulation 05/26/24 Range/Units 02:08 PT 10.3 (10.0-12.5) sec APTT 26.6 (22.0-30.0) sec CBC 05/26/24 Range/Units 02:08 WBC 9.6 (3.8-10.6) k/uL RBC 3.61 L (3.80-5.40) m/uL Hgb 10.7 L (11.4-16.0) gm/dL Hct 34.6 (34.0-46.0) % Plt Count 243 (150-450) k/uL Comprehensive Metabolic Panel 05/26/24 05/26/24 Range/Units 02:08 04:04 Sodium 131 L (137-145) mmol/L Potassium 6.0 H 4.6 (3.5-5.1) mmol/L Chloride 101 (98-107) mmol/L Carbon Dioxide 21 L (22-30) mmol/L BUN 98 H (7-17) mg/dL Creatinine 3.01 H (0.52-1.04) mg/dL Glucose 236 H (74-99) mg/dL Calcium 8.4 (8.4-10.2) mg/dL AST 54 H (14-36) U/L ALT 23 (4-34) U/L Alkaline Phosphatase 214 H (38-126) U/L Total Protein 6.5 (6.3-8.2) g/dL Albumin 3.4 L (3.5-5.0) g/dL Current Medications Generic Name Dose Route Start Last Admin Trade Name Freq PRN Reason Stop Dose Admin Acetaminophen 650 mg 05/26/24 06:51 Acetaminophen Tab 325 Mg Tab PO Q6HR PRN Fever and/ or Pain Allopurinol 100 mg 05/27/24 09:00 Allopurinol 100 Mg Tab PO DAILY [facility] Amlodipine Besylate 10 mg 05/26/24 21:00 Amlodipine 10 Mg Tab PO HS [facility] Aspirin 81 mg 05/26/24 09:00 05/26/24 09:10 Aspirin 81 Mg PO Not Given DAILY [facility] Atorvastatin Calcium 10 mg 05/26/24 21:00 Atorvastatin 10 Mg Tab PO HS [facility] Calcitriol 0.25 mcg 06/01/24 09:00 Calcitriol 0.25 Mcg Cap PO Sa@0900 [facility] Dextrose/Water 25 ml 05/26/24 06:54 Dextrose 50% Syringe 50 Ml IVP PER PROTOCOL PRN Hypoglycemia Protocol Dextrose/Water 50 ml 05/26/24 06:54 Dextrose 50% Syringe 50 Ml IVP PER PROTOCOL PRN Hypoglycemia Protocol Furosemide 60 mg 05/26/24 09:00 05/26/24 09:07 Furosemide 10 Mg/Ml 10 Ml Vial IV 60 mg Q12HR FAUSTO Administration Insulin Aspart 0 unit 05/26/24 07:30 05/26/24 13:03 Insulin Aspart (Novolog) 100 Unit/Ml Vial SQ Not Given ACHS [facility] Protocol Naloxone HCl 0.2 mg 05/26/24 04:22 Naloxone 0.4 Mg/Ml 1 Ml Vial IV Q2M PRN Opioid Reversal Ondansetron HCl 4 mg 05/26/24 04:22 05/26/24 10:04 Ondansetron 4 Mg/2 Ml Vial IVP 4 mg Q8HR PRN Administration Nausea And Vomiting Intake and Output 05/25/24 05/26/24 05/26/24 22:59 06:59 14:59 Output Total 1550 Balance -1550 Output: Urine 550 Other 1000 Other: Weight 58.513 kg 05/26/24 02:08 05/26/24 04:04
[2024-05-26 16:39] LABS: Glucose,Whole Blood 130 mg/dL (70-110)
[2024-05-26] MEDS: ATORVASTATIN 10 MG TAB PO SCH (20:47)
[2024-05-26] MEDS: amLODIPine 10 MG TAB PO SCH (20:47)
[2024-05-26 20:54] LABS: Glucose,Whole Blood 179 mg/dL (70-110)
[2024-05-27 03:27] VITALS: BP 120/43; RESP 18; TEMP 97.9
[2024-05-27 06:16] LABS: Glucose,Whole Blood 95 mg/dL (70-110)
[2024-05-27] MEDS ORDERED: allopurinoL 100 MG TAB ONE (08:20)
[2024-05-27] MEDS ORDERED: APIXABAN 2.5 MG TABLET ONE ×2 (08:20→21:10)
[2024-05-27] MEDS ORDERED: ASPIRIN 81 MG ONE (08:20)
[2024-05-27] MEDS ORDERED: FUROSEMIDE 10 MG/ML 10 ML VIAL ONE ×2 (08:20→21:09)
[2024-05-27] MEDS ORDERED: APIXABAN 2.5 MG TABLET PO SCH (09:00)
[2024-05-27] MEDS ORDERED: allopurinoL 100 MG TAB PO SCH (09:00)
[2024-05-27 11:27] LABS: Glucose,Whole Blood 208 mg/dL (70-110)
[2024-05-27] MEDS ORDERED: INSULIN ASPART (NovoLOG) 100 UNIT/ML VIAL SQ ONE ×2 (12:10→17:13)
[2024-05-27 16:25] LABS: Glucose,Whole Blood 161 mg/dL (70-110)
[2024-05-27 20:34] LABS: Glucose,Whole Blood 181 mg/dL (70-110)
[2024-05-27] MEDS ORDERED: ATORVASTATIN 40 MG TAB ONE (21:09)
[2024-05-27] MEDS ORDERED: amLODIPine 10 MG TAB ONE (21:10)
[2024-05-28] MEDS ORDERED: ONDANSETRON 4 MG/2 ML VIAL ONE (02:19)
[2024-05-28 06:24] LABS: Glucose,Whole Blood 96 mg/dL (70-110)
[2024-05-28] MEDS ORDERED: APIXABAN 2.5 MG TABLET ONE ×2 (09:28→21:11)
[2024-05-28] MEDS ORDERED: ASPIRIN 81 MG ONE (09:28)
[2024-05-28] MEDS ORDERED: allopurinoL 100 MG TAB ONE (09:28)
[2024-05-28] MEDS ORDERED: FUROSEMIDE 10 MG/ML 10 ML VIAL ONE ×2 (09:28→21:11)
[2024-05-28 11:31] LABS: Glucose,Whole Blood 156 mg/dL (70-110)
[2024-05-28 16:35] LABS: Glucose,Whole Blood 204 mg/dL (70-110)
[2024-05-28] MEDS ORDERED: INSULIN ASPART (NovoLOG) 100 UNIT/ML VIAL SQ ONE ×2 (17:23→21:17)
[2024-05-28 20:01] LABS: Glucose,Whole Blood 212 mg/dL (70-110)
[2024-05-28] MEDS ORDERED: amLODIPine 10 MG TAB ONE (21:11)
[2024-05-28] MEDS ORDERED: ATORVASTATIN 40 MG TAB ONE (21:11)
[2024-05-28] MEDS ORDERED: ACETAMINOPHEN TAB 325 MG TAB ONE (21:12)
[2024-05-29 06:17] LABS: Glucose,Whole Blood 114 mg/dL (70-110)
[2024-05-29] MEDS ORDERED: ASPIRIN 81 MG ONE (07:57)
[2024-05-29] MEDS ORDERED: APIXABAN 2.5 MG TABLET ONE ×2 (07:58→20:24)
[2024-05-29] MEDS ORDERED: FUROSEMIDE 10 MG/ML 10 ML VIAL ONE (07:58)
[2024-05-29] MEDS ORDERED: allopurinoL 100 MG TAB ONE (08:12)
[2024-05-29 11:59] LABS: Glucose,Whole Blood 239 mg/dL (70-110)
[2024-05-29] MEDS ORDERED: INSULIN ASPART (NovoLOG) 100 UNIT/ML VIAL SQ ONE (12:08)
[2024-05-29] MEDS ORDERED: TOLVAPTAN 15 MG TABLET ONE (16:00)
[2024-05-29 16:19] LABS: Glucose,Whole Blood 71 mg/dL (70-110)
[2024-05-29] MEDS ORDERED: cefTRIAXone 1 GM VIAL ONE (16:20)
[2024-05-29 20:05] LABS: Glucose,Whole Blood 194 mg/dL (70-110)
[2024-05-29] MEDS ORDERED: amLODIPine 10 MG TAB ONE (20:24)
[2024-05-29] MEDS ORDERED: ATORVASTATIN 10 MG TAB ONE (20:24)
[2024-05-29] MEDS ORDERED: SODIUM CHLORIDE 0.9% 50 ML BAG ONE (23:59)
[2024-05-30 05:59] LABS: Glucose,Whole Blood 96 mg/dL (70-110)
[2024-05-30] MEDS ORDERED: APIXABAN 2.5 MG TABLET ONE ×3 (09:36→22:06)
[2024-05-30] MEDS ORDERED: allopurinoL 100 MG TAB ONE ×2 (09:36→09:47)
[2024-05-30] MEDS ORDERED: ASPIRIN 81 MG ONE ×2 (09:36→09:48)
[2024-05-30 11:23] LABS: Glucose,Whole Blood 119 mg/dL (70-110)
[2024-05-30 16:13] LABS: Glucose,Whole Blood 173 mg/dL (70-110)
[2024-05-30] MEDS ORDERED: cefTRIAXone 1 GM VIAL ONE (17:22)
[2024-05-30 20:25] LABS: Glucose,Whole Blood 300 mg/dL (70-110)
[2024-05-30] MEDS ORDERED: ATORVASTATIN 10 MG TAB ONE (22:06)
[2024-05-30] MEDS ORDERED: amLODIPine 10 MG TAB ONE (22:06)
[2024-05-30] MEDS ORDERED: INSULIN ASPART (NovoLOG) 100 UNIT/ML VIAL SQ ONE (22:06)
[2024-05-30] MEDS ORDERED: SODIUM CHLORIDE 0.9% 50 ML BAG ONE (23:59)
[2024-05-31] MEDS ORDERED: ONDANSETRON 4 MG/2 ML VIAL ONE (03:16)
[2024-05-31 06:22] LABS: Glucose,Whole Blood 116 mg/dL (70-110)
[2024-05-31] MEDS ORDERED: allopurinoL 100 MG TAB ONE (09:06)
[2024-05-31] MEDS ORDERED: ASPIRIN 81 MG ONE (09:06)
[2024-05-31] MEDS ORDERED: APIXABAN 2.5 MG TABLET ONE ×2 (09:06→20:35)
[2024-05-31] MEDS ORDERED: FUROSEMIDE 10 MG/ML 10 ML VIAL ONE ×2 (09:06→20:34)
[2024-05-31 11:47] LABS: Glucose,Whole Blood 114 mg/dL (70-110)
[2024-05-31] MEDS ORDERED: cefTRIAXone 1 GM VIAL ONE (15:57)
[2024-05-31] MEDS ORDERED: DARBEPOETIN ALFA 40 MCG/0.4 ML SYRINGE ONE (16:00)
[2024-05-31] MEDS ORDERED: SODIUM CHLORIDE 0.9% 50 ML BAG ONE (16:00)
[2024-05-31 16:54] LABS: Glucose,Whole Blood 148 mg/dL (70-110)
[2024-05-31 20:15] LABS: Glucose,Whole Blood 272 mg/dL (70-110)
[2024-05-31] MEDS ORDERED: ATORVASTATIN 10 MG TAB ONE (20:34)
[2024-05-31] MEDS ORDERED: amLODIPine 10 MG TAB ONE (20:35)
[2024-05-31] MEDS ORDERED: INSULIN ASPART (NovoLOG) 100 UNIT/ML VIAL SQ ONE (20:42)
[2024-05-31] MEDS ORDERED: ACETAMINOPHEN TAB 325 MG TAB ONE (23:27)
[2024-06-01 06:05] LABS: Glucose,Whole Blood 107 mg/dL (70-110)
[2024-06-01] MEDS ORDERED: allopurinoL 100 MG TAB ONE (08:47)
[2024-06-01] MEDS ORDERED: APIXABAN 2.5 MG TABLET ONE ×2 (08:47→20:42)
[2024-06-01] MEDS ORDERED: ASPIRIN 81 MG ONE (08:47)
[2024-06-01 11:51] LABS: Glucose,Whole Blood 292 mg/dL (70-110)
[2024-06-01] MEDS ORDERED: INSULIN ASPART (NovoLOG) 100 UNIT/ML VIAL SQ ONE (12:49)
[2024-06-01 16:27] LABS: Glucose,Whole Blood 149 mg/dL (70-110)
[2024-06-01] MEDS ORDERED: ONDANSETRON 4 MG/2 ML VIAL ONE (16:45)
[2024-06-01 20:28] LABS: Glucose,Whole Blood 149 mg/dL (70-110)
[2024-06-01] MEDS ORDERED: ATORVASTATIN 10 MG TAB ONE (20:41)
[2024-06-01] MEDS ORDERED: amLODIPine 10 MG TAB ONE (20:42)
[2024-06-02 05:22] LABS: Glucose,Whole Blood 104 mg/dL (70-110)
[2024-06-02] MEDS ORDERED: ASPIRIN 81 MG ONE (08:50)
[2024-06-02] MEDS ORDERED: APIXABAN 2.5 MG TABLET ONE ×2 (08:50→20:32)
[2024-06-02] MEDS ORDERED: allopurinoL 100 MG TAB ONE (08:50)
[2024-06-02] MEDS ORDERED: ONDANSETRON 4 MG/2 ML VIAL ONE ×2 (08:54→23:20)
[2024-06-02 11:23] LABS: Glucose,Whole Blood 122 mg/dL (70-110)
[2024-06-02 16:24] LABS: Glucose,Whole Blood 153 mg/dL (70-110)
[2024-06-02] MEDS ORDERED: INSULIN ASPART (NovoLOG) 100 UNIT/ML VIAL SQ ONE (17:14)
[2024-06-02 20:12] LABS: Glucose,Whole Blood 149 mg/dL (70-110)
[2024-06-02] MEDS ORDERED: MELATONIN 5 MG TABLET ONE (20:32)
[2024-06-02] MEDS ORDERED: ATORVASTATIN 40 MG TAB ONE (20:32)
[2024-06-02] MEDS ORDERED: amLODIPine 5 MG TAB ONE (20:32)
[2024-06-02] MEDS ORDERED: MELATONIN 3 MG TABLET ONE (20:36)
[2024-06-03] MEDS ORDERED: ASPIRIN 81 MG ONE (08:17)
[2024-06-03] MEDS ORDERED: allopurinoL 100 MG TAB ONE (08:17)
[2024-06-03] MEDS ORDERED: APIXABAN 2.5 MG TABLET ONE ×2 (08:17→21:33)
[2024-06-03] MEDS ORDERED: ONDANSETRON 4 MG/2 ML VIAL ONE (09:21)
[2024-06-03] MEDS ORDERED: TORSEMIDE 20 MG TAB ONE (11:45)
[2024-06-03] MEDS ORDERED: SODIUM BICARBONATE TAB 650 MG TAB ONE ×2 (11:46→21:32)
[2024-06-03] MEDS ORDERED: INSULIN ASPART (NovoLOG) 100 UNIT/ML VIAL SQ ONE ×2 (17:11→21:33)
[2024-06-03] MEDS ORDERED: ATORVASTATIN 40 MG TAB ONE (21:32)
[2024-06-03] MEDS ORDERED: amLODIPine 5 MG TAB ONE (21:33)
[2024-06-03] MEDS ORDERED: MELATONIN 3 MG TABLET ONE (21:33)
[2024-06-04] MEDS ORDERED: PROCHLORPERAZINE INJ 10 MG/2 ML VIAL ONE (01:21)
[2024-06-04] MEDS ORDERED: ONDANSETRON 4 MG/2 ML VIAL ONE (01:23)
[2024-06-04] MEDS ORDERED: ASPIRIN 81 MG ONE (08:15)
[2024-06-04] MEDS ORDERED: SODIUM BICARBONATE TAB 650 MG TAB ONE (08:15)
[2024-06-04] MEDS ORDERED: APIXABAN 2.5 MG TABLET ONE (08:15)
[2024-06-04] MEDS ORDERED: TORSEMIDE 20 MG TAB ONE (08:15)
[2024-06-04] MEDS ORDERED: allopurinoL 100 MG TAB ONE (08:16)
--- NOTE | 2024-06-18 15:46 | US ---
Site ID [facility] Patient Felicitas Nielsen T ID [id number] Age/Gender: 83Y, F Order # N/A Procedure US kidneys/renal and bladder Date 05/28/2024 11:42:00 AM EXAMINATION TYPE: US renals and bladder DATE OF EXAM: 06/15/2024 COMPARISON: Renal ultrasound 09/07/2023 CLINICAL INDICATION: Female, 83 year old with history of acute kidney injury. EXAM MEASUREMENTS: Right Kidney: 7.8 x 4.3 x 3.9 cm Left Kidney: N/A Right Kidney: Small size, no hydro- Left Kidney: Not visualized due to overlying bowel gas and patient immobility Bladder: Decompressed from Ordoñez catheter placement. Left kidney is not visualized due to overlying bowel gas and patient immobility. Similar size of smal l right kidney. Cortex appears preserved without thinning. Cortical medullary differentiation is main tained. Right kidney demonstrates no hydronephrosis, nephrolithiasis, or solid mass. The urinary blad chuyita is decompressed with Ordoñez catheter placement. IMPRESSION: 1. No hydronephrosis of the right kidney. 2. Similar small right kidney. 3. Nonvisualization of the left kidney due to overlying bowel gas and patient immobility.
--- NOTE | 2024-06-19 08:12 | US ---
EXAMINATION TYPE: US venous doppler duplex LE BI DATE OF EXAM: 06/19/2024 6:57 AM COMPARISON: NONE CLINICAL INDICATION: Female, 83 years old with history of rule out DVT; loss use of legs years ago, n o h/o dvt, swelling SIDE PERFORMED: Bilateral TECHNIQUE: The lower extremity deep venous system is examined utilizing real time linear array sonog dot with graded compression, doppler sonography and color-flow sonography. VESSELS IMAGED: Common Femoral Vein Deep Femoral Vein Greater Saphenous Vein * Femoral Vein Popliteal Vein Small Saphenous Vein * Proximal Calf Veins (* superficial vessels) Right Leg: Negative for DVT Left Leg: Negative for DVT - patient could not tolerate compression images of popiteal IMPRESSION: Grayscale, color doppler, spectral doppler imaging performed of the deep veins of the lo wer extremities. There is normal flow, compressibility, vascular waveforms.
[2024-06-19 13:30] LABS: HCT 34.1 % (34.0-46.0); HGB 10.3 gm/dL (11.4-16.0); RBC 3.53 m/uL (3.80-5.40); WBC 8.1 k/uL (3.8-10.6)
[2024-06-19 13:31] LABS: Basophils # (A) 0.1 k/uL (0-0.2); Basophils % (A) 1 %; Eosinophils # (A) 0.8 k/uL (0-0.7); Eosinophils % (A) 10 %; Lymphocytes # (A) 1.7 k/uL (1.0-4.8); Lymphocytes % (A) 21 %; MCH 29.2 pg (25.0-35.0); MCHC 30.2 g/dL (31.0-37.0); MCV 96.8 fL (80.0-100.0); Mean Platelet Volume 10.1; Monocytes # (A) 0.4 k/uL (0-1.0); Monocytes % (A) 5 %; Neutrophils # (A) 5.1 k/uL (1.3-7.7); Neutrophils % (A) 62 %; Platelet Count 392 k/uL (150-450); RDW 20.3 % (11.5-15.5)
[2024-06-19 13:32] LABS: Glucose 144 mg/dL (74-99); Sodium 127 mmol/L (137-145)
[2024-06-19 13:33] LABS: Anion Gap 8 mmol/L; Blood Urea Nitrogen 103 mg/dL (7-17); Carbon Dioxide 22 mmol/L (22-30); Chloride 97 mmol/L (98-107); Potassium 5.2 mmol/L (3.5-5.1)
[2024-06-19 13:34] LABS: ALT 21 U/L (4-34); AST 31 U/L (14-36); African American GFR (CKD) 15 (>60 ml/min/1.73 sqM); Albumin 3.1 g/dL (3.5-5.0); Alkaline Phosphatase 229 U/L (38-126); Calcium 8.4 mg/dL (8.4-10.2); Non-African American GFR(CKD) 13 (>60 ml/min/1.73 sqM); Total Bilirubin 0.4 mg/dL (0.2-1.3); Total Protein 5.7 g/dL (6.3-8.2)
--- NOTE | 2024-06-27 10:55 | XR ---
Patient: Felicitas Nielsen T Ordering Physician: Unknown, Unknown ID: [id number] Phone, Pager: Phone: N/A Pager: N/A : [phone] Age/Gender: 83Y, F Primary Location: N/A Procedure: XR chest 2V Study Date: 05/30/2024 6:37:00 AM EXAMINATION TYPE: XR chest 2V DATE OF EXAM: 06/16/2024 11:00 AM CLINICAL INDICATION: 05/26/2024 COMPARISON: Chest radiographs from 05/26/2024 TECHNIQUE: XR chest 2V Frontal view of the chest. FINDINGS: Lungs/Pleura: There is no evidence of pleural effusion, focal consolidation, or pneumothorax. Pulmonary vascularity: Unremarkable. Heart/mediastinum: Cardiomediastinal silhouette is enlarged. Atherosclerotic calcifications are seen in the aorta. Two lead cardiac conduction device overlying the left hemithorax with lead tips projec ting over the right ventricle and right atrium. Musculoskeletal: No acute osseous pathology. Midline sternotomy wires are noted. Other findings: None IMPRESSION: Large left pleural effusion with associated atelectasis. Cardiomegaly.
--- NOTE | 2024-06-30 18:36 | CDI ---
Documentation Clarification Form Date: 06/30/2024 06:18:33 PM From: Victoria Terry Phone: Admit Date: 05/26/2024 04:23:00 AM Patient Name: Felicitas Nielsen Visit Number: [id number] Discharge Date: 06/04/2024 02:58:00 PM ATTENTION: The Clinical Documentation Specialists (CDI) and [facility] Coding Staff appreciate your assistance in clarifying documentation. Please respond to the clarification below the line at the bottom and electronically sign. The CDI & [facility] Coding staff will review the response and follow-up if needed. Please note: Queries are made part of the Legal Health Record. If you have any questions, please contact the author of this message via ITS. Doctor/Provider: Zuri Garcia Conflicting documentation has been found in the medical record. As attending physician, please provide clarification. CKD stage IV per Progress Note 05/29 and 05/30 (Page 11 of 37, page 29 of 37 of paper chart) and Consult Note 8/ CKD stage IIIB per Progress Note 05/28 & 05/29 (page 9 of 37) and DCS History/Risk Factors: HTN, ACHRF, COPD on 2 L of oxygen , A Fib, PPM, CADs/p CABG, ACDHF, AV replacement (porcine), ACKD, DMII w hyperglycemia, HLD Baseline Cr: 2.5-3 Clinical Indicators: Current BUN: 98 CR: 3.01 GFR: 13-16 Treatment: Pt refused dialysis and hospice Please clarify the stage of the CKD, if known: [ ] CKD Stage 3b [ ] CKD Stage 4 Reference: [employer] Stage 1 eGFR = 90 and kidney damage for =3 months Stage 2 eGFR 60-89 and kidney damage for =3 months Stage 3a eGFR 45-59 and kidney damage for =3 months Stage 3b eGFR 30-44 and kidney damage for =3 months Stage 4 eGFR 15-29 r and kidney damage for =3 months Stage 5 eGFR <15 and kidney damage for =3 months (Template last revised: October 2023) [ ] CKD Stage 4 MTDD
--- NOTE | 2024-07-18 14:39 | PN ---
PROGRESS NOTE SUBJECTIVE: The patient is seen in followup for acute kidney injury on chronic kidney disease. Creatinine was stable at 3.0 yesterday with BUN of 115. She remains on 2 L nasal cannula. Denies chest pain or shortness of breath. She did have episode of emesis this morning. OBJECTIVE: VITAL SIGNS: Temperature 98.1 degrees Fahrenheit, pulse 57, blood pressure 111/68, oxygen saturation 97% on 2 L nasal cannula. HEENT: On nasal cannula. LUNGS: Clear to auscultation. ABDOMEN: Soft. Nontender. EXTREMITIES: No edema. : Ordoñez catheter noted. ASSESSMENT: 1. Acute kidney injury, secondary to acute tubular necrosis, secondary to cardiorenal syndrome, creatinine peaked at 3.4 this admission and was 3.0 yesterday with BUN of 115. Renal ultrasound showed atropic left kidney and right kidney was not visualized. The patient had a Ordoñez catheter. 2. Chronic kidney disease, stage 4, secondary to nephrosclerosis and cardiorenal syndrome with baseline creatinine 2.5 to 3. 3. Complicated urinary tract infection with Ordoñez catheter, status post antibiotics, Ordoñez catheter changed on May 31, 2024. 4. Anemia of chronic kidney disease, maintained on Aranesp. 5. Hyponatremia, secondary to acute kidney injury. Initially, hypervolemic. Did receive Lasix as well as Samsca this admission. Sodium level 134 yesterday. 6. Hypertension with chronic kidney disease. Blood pressure 111/68 this morning. 7. Coronary artery disease with history of coronary artery bypass graft. PLAN: 1. Continue to hold off on diuretics at this time. 2. The patient underwent thoracentesis last week. Oxygenation is stable at 2 L nasal cannula. 3. Renal replacement therapy has been discussed at length with the patient. The patient continues to refuse any form of renal replacement therapy indicated. Conservative care only. 4. Advised the patient to follow up as an outpatient 1 week post discharge. MMODL / IJN: [id number] /
== END 2024-06-04 14:58 | disposition home or self-care (01) | DRG 291 ==
LOC: EC 01:35 → 3SCARD 04:23
PROVIDERS: ADMIT Internal Medicine; ATTEND Internal Medicine
PROC: 0W9B3ZZ Drainage of Left Pleural Cavity, Percutaneous Approach (ICD-10-PCS; principal; 2024-05-26)
DX: I13.0 Hypertensive heart and chronic kidney disease with heart failure and stage 1 through stage 4 chronic kidney disease, or unspecified chronic kidney disease (principal); I50.33 Acute on chronic diastolic (congestive) heart failure; N39.0 Urinary tract infection, site not specified; T83.511A Infection and inflammatory reaction due to indwelling urethral catheter, initial encounter; J96.21 Acute and chronic respiratory failure with hypoxia; N17.0 Acute kidney failure with tubular necrosis; I44.2 Atrioventricular block, complete; J91.8 Pleural effusion in other conditions classified elsewhere; E87.1 Hypo-osmolality and hyponatremia; N18.4 Chronic kidney disease, stage 4 (severe); I27.20 Pulmonary hypertension, unspecified; E11.22 Type 2 diabetes mellitus with diabetic chronic kidney disease; E11.65 Type 2 diabetes mellitus with hyperglycemia; F03.90 Unspecified dementia, unspecified severity, without behavioral disturbance, psychotic disturbance, mood disturbance, and anxiety; I50.810 Right heart failure, unspecified; I48.0 Paroxysmal atrial fibrillation; D63.1 Anemia in chronic kidney disease; I05.0 Rheumatic mitral stenosis; I95.9 Hypotension, unspecified; Z79.01 Long term (current) use of anticoagulants; Z95.1 Presence of aortocoronary bypass graft; Z99.81 Dependence on supplemental oxygen; Z95.3 Presence of xenogenic heart valve; I25.10 Atherosclerotic heart disease of native coronary artery without angina pectoris; E78.5 Hyperlipidemia, unspecified; E87.5 Hyperkalemia; M41.9 Scoliosis, unspecified; R11.2 Nausea with vomiting, unspecified; R79.89 Other specified abnormal findings of blood chemistry; W57.XXXA Bitten or stung by nonvenomous insect and other nonvenomous arthropods, initial encounter; Y73.1 Therapeutic (nonsurgical) and rehabilitative gastroenterology and urology devices associated with adverse incidents; Z95.0 Presence of cardiac pacemaker; Z79.899 Other long term (current) drug therapy; Z79.82 Long term (current) use of aspirin; Z88.1 Allergy status to other antibiotic agents; Z88.5 Allergy status to narcotic agent; Z74.01 Bed confinement status
CPT/HCPCS: 36415; 71045; 71046; 76604; 76770; 80048; 80053; 81001; 81003; 82728; 83540; 83550; 83735; 83880; 84132; 84484; 85025; 85027; 85379; 85610; 85730; 86618; 87077; 87086; 87186; 87636; 93005; 93970; 94760; 96374; 96375; 96376; 99285

== ENCOUNTER 2024-06-17 09:34 | Inpatient (IN) | payer MEDICARE ==
--- NOTE | 2024-06-17 10:01 | ED ---
General Adult HPI - General Chief complaint: Weakness Stated complaint: Weakness Time Seen by Provider: 06/17/24 09:36 Source: patient, EMS Mode of arrival: EMS Limitations: no limitations - History of Present Illness Initial comments: Dictation was produced using [employer] dictation software. please excuse any grammatical, word or spelling errors. Chief Complaint: 83-year-old female generalized weakness History of Present Illness: Patient is 83-year-old female she is a poor historian. Patient brought in from home by EMS. Patient has been feeling weak for the last 24 hours. Patient denies any pain complaints states that she has been dealing with a UTI per EMS. Patient denies any cough runny nose sore throat. Denies any fever or constitutional symptoms. States that she just feels generally weak. The ROS documented in this emergency department record has been reviewed and confirmed by me. Those systems with pertinent positive or negative responses have been documented in the HPI. All other systems are other negative and/or noncontributory. - Related Data Home Medications Medication Instructions Recorded Confirmed Simvastatin [Zocor] 20 mg PO HS 08/22/22 05/26/24 Ubidecarenone [Co Q-10] 30 mg PO HS 09/06/23 05/26/24 calcitrioL 0.25 mcg PO SA 11/17/23 05/26/24 Apixaban [Eliquis] 2.5 mg PO BID 02/08/24 05/26/24 amLODIPine [Norvasc] 10 mg PO HS 02/08/24 05/26/24 allopurinoL [Zyloprim] 100 mg PO DAILY 05/06/24 05/26/24 Previous Rx's Medication Instructions Recorded Acetaminophen Tab [Tylenol] 650 mg PO Q6HR PRN tab 02/12/24 Torsemide [Demadex] 40 mg PO DAILY #60 tablet 02/12/24 Aspirin 81 mg PO DAILY 30 Days #30 tab 05/20/24 Allergies Allergy/AdvReac Type Severity Reaction Status Date / Time cephalexin Allergy Unknown Verified 06/17/24 09:40 ciprofloxacin [From Cipro] Allergy Unknown Verified 06/17/24 09:40 codeine Allergy Unknown Verified 06/17/24 09:40 Review of Systems ROS Statement: Those systems with pertinent positive or pertinent negative responses have been documented in the HPI. ROS Other: All systems not noted in ROS Statement are negative. Past Medical History Past Medical History: Coronary Artery Disease (CAD), Heart Failure, Diabetes Mellitus, Hyperlipidemia, Hypertension, Renal Disease Additional Past Medical History / Comment(s): pacemaker for complete heart block, AVR- pig History of Any Multi-Drug Resistant Organisms: None Reported Past Surgical History: Appendectomy, Cholecystectomy, Coronary Bypass/CABG, Hysterectomy, Pacemaker, Tonsillectomy Additional Past Surgical History / Comment(s): CABG x3 11 years Past Anesthesia/Blood Transfusion Reactions: No Reported Reaction Type of Cardiac Device: Permanent Pacemaker Device Placement Date:: 02/20/23 Past Psychological History: No Psychological Hx Reported Smoking Status: Never smoker Past Alcohol Use History: None Reported Past Drug Use History: None Reported - Past Family History Father History Unknown: Yes Family Medical History: COPD General Exam - General Exam Comments Initial Comments: PHYSICAL EXAM: General Impression: Alert and oriented x3, malaised HEENT: Normocephalic atraumatic, extra-ocular movements intact, pupils equal and reactive to light bilaterally, mucous membranes moist. Cardiovascular: Heart regular rate and rhythm Chest: Able to complete full sentences, no retractions, no tachypnea Abdomen: abdomen soft, non-tender, non-distended, no organomegaly Musculoskeletal: Pulses present and equal in all extremities, no peripheral ed gardenia Motor: no focal deficits noted Neurological: CN II-XII grossly intact, no focal motor or sensory deficits noted Skin: Intact with no visualized rashes Psych: Normal affect and mood Limitations: no limitations Course Vital Signs 06/17/24 09:36 Temperature 97.5 F L Pulse Rate 65 Respiratory 20 Rate Blood Pressure 144/60 O2 Sat by Pulse 98 Oximetry EKG Findings - EKG Comments: EKG Findings:: My EKG interpretation: Ventricular rate 62, ventricular paced rhythm, QRS 186, QTc 502. No RI prolongation, no QTC prolongation, no ST or T-wave changes noted. EKG compared to May 26, 2024 showing no changes. Overall, this EKG is unremarkable Medical Decision Making - Medical Decision Making Was pt. sent in by a medical professional or institution (, PA, EXPANDER MACHINE OPERATOR, urgent care, hospital, or senior living...) When possible be specific @ -No Did you speak to anyone other than the patient for history (EMS, parent, family, police, friend...)? What history was obtained from this source @ -EMS as described above Did you review nursing and triage notes (agree or disagree)? Why? @ -I reviewed and agree with nursing and triage notes Were old charts reviewed (outside hosp., previous admission, EMS record, old EKG, old radiological studies, urgent care reports/EKG's, senior living records)? Report findings @ -No old charts were reviewed Differential Diagnosis (chest pain, altered mental status, abdominal pain women, abdominal pain men, vaginal bleeding, musculoskeletal, weakness, fever, dyspnea, syncope, headache, dizziness, GI bleed, back pain, seizure, CVA, palpatations, mental health)? @ -Differential Weakness: Hypoglycemia, shock, sepsis, hyponatremia, anemia, infection, IN, ETOH, adverse medicine reaction, overdose, stroke, this is not meant to be an all-inclusive list. EKG interpreted by me (3pts min.). @ -See above X-rays interpreted by me (1pt min.). @ -Acute abdominal series and chest x-ray shows no acute processes CT interpreted by me (1pt min.). @ -None done U/S interpreted by me (1pt. min.). @ -None done What testing was considered but not performed or refused? (CT, X-rays, U/S, labs)? Why? @ -None What meds were considered but not given or refused? Why? @ -None Was smoking cessation discussed for >3mins.? @ -No Were there social determinants of health that impacted care today? How? (Homelessness, low income, unemployed, alcoholism, drug addiction, transportation, low edu. Level, literacy, decrease access to med. care, usp, rehab)? @ -No Was there de-escalation of care discussed even if they declined (Discuss DNR or withdrawal of care, Hospice)? DNR status @ -No What co-morbidities impacted this encounter? (DM, HTN, Smoking, COPD, CAD, Cancer, CVA, ARF, Chemo, Hep., AIDS, mental health diagnosis, sleep apnea, morbid obesity)? @ -None Was patient admitted / discharged? Hospital course, mention meds given and route, prescriptions, significant lab abnormalities, going to OR and other pertinent info. @ -83-year-old debilitated female presents to the ER for feelings of malaise and generalized bodyaches. Vital signs upon arrival are within acceptable limits. Patient afebrile nonhypotensive. Laboratory evaluation obtained. Leukocytosis 16.8 urinalysis positive for UTI. Renal function is at patient's baseline. Patient be admitted consultation to infectious disease. Patient allergic to Keflex and Cipro. Patient given ertapenem. Patient questioned about her allergy states that she swells up and has nausea. This is concerning for severe allergic reaction. Infectious disease will be consulted. Did you discuss the management of the patient with other professionals (professionals i.e. , PA, EXPANDER MACHINE OPERATOR, lab, RT, psych nurse, dialysis social worker, video coordinator, teacher, medical officer psychiatry, case management coordinator)? Give summary @ -No Was critical care preformed (if so, how long)? @ -No Undiagnosed new problem with uncertain prognosis? @ -No Drug Therapy requiring intensive monitoring for toxicity (Heparin, Nitro, Insulin, Cardizem)? @ -No Were any procedures done? @ -No Diagnosis/symptom? Acute, or Chronic, or Acute on Chronic? Uncomplicated (without systemic symptoms) or Complicated (systemic symptoms)? @ -UTI, malaise Side effects of treatment? @ -No Exacerbation, Progression, or Severe Exacerbation? @ -No Poses a threat to life or bodily function? How? (Chest pain, USA, IN, pneumonia, PE, COPD, DKA, ARF, appy, cholecystitis, CVA, Diverticulitis, Homicidal, Suicidal, threat to staff... and all critical care pts) @ -yes - Lab Data Result diagrams: 06/17/24 10:03 06/17/24 10:03 Lab Results 06/17/24 06/17/24 06/17/24 Range/Units 10:03 10:03 10:03 WBC 16.8 H (3.8-10.6) k/uL RBC 3.51 L (3.80-5.40) m/uL Hgb 10.2 L (11.4-16.0) gm/dL Hct 33.0 L (34.0-46.0) % MCV 94.0 (80.0-100.0) fL MCH 29.2 (25.0-35.0) pg MCHC 31.0 (31.0-37.0) g/dL RDW 20.6 H (11.5-15.5) % Plt Count 221 (150-450) k/uL MPV 9.7 Neutrophils % 82 % Lymphocytes % 10 % Monocytes % 3 % Eosinophils % 2 % Basophils % 0 % Neutrophils # 13.7 H (1.3-7.7) k/uL Lymphocytes # 1.7 (1.0-4.8) k/uL Monocytes # 0.6 (0-1.0) k/uL Eosinophils # 0.4 (0-0.7) k/uL Basophils # 0.0 (0-0.2) k/uL Hypochromasia Slight Anisocytosis Moderate Macrocytosis Slight PT 11.7 (10.0-12.5) sec INR 1.1 (<1.2) APTT 28.0 (22.0-30.0) sec Sodium 133 L (137-145) mmol/L Potassium 3.7 (3.5-5.1) mmol/L Chloride 98 (98-107) mmol/L Carbon Dioxide 27 (22-30) mmol/L Anion Gap 8 mmol/L BUN 81 H (7-17) mg/dL Creatinine 2.51 H (0.52-1.04) mg/dL Est GFR (CKD-EPI)AfAm 20 (>60 ml/min/1.73 sqM) Est GFR (CKD-EPI)NonAf 17 (>60 ml/min/1.73 sqM) Glucose 118 H (74-99) mg/dL Plasma Lactic Acid [place] (0.7-2.0) mmol/L Calcium 8.3 L (8.4-10.2) mg/dL Magnesium 1.8 (1.6-2.3) mg/dL Total Bilirubin 0.7 (0.2-1.3) mg/dL AST 31 (14-36) U/L ALT 18 (4-34) U/L Alkaline Phosphatase 296 H (38-126) U/L Troponin I (0.000-0.034) ng/mL Total Protein 5.8 L (6.3-8.2) g/dL Albumin 2.9 L (3.5-5.0) g/dL TSH 3.110 (0.465-4.680) mIU/L Urine Color Urine Appearance (Clear) Urine pH (5.0-8.0) Ur Specific [place] (1.001-1.035) Urine Protein (Negative) Urine Glucose (UA) (Negative) Urine Ketones (Negative) Urine Blood (Negative) Urine Nitrite (Negative) Urine Bilirubin (Negative) Urine Urobilinogen (<2.0) mg/dL Ur Leukocyte Esterase (Negative) Urine RBC (0-5) /hpf Urine WBC (0-5) /hpf Ur Squamous Epith Cells (0-4) /hpf Urine Mucus (None) /hpf Influenza Type A (PCR) (Not Detectd) Influenza Type B (PCR) (Not Detectd) RSV (PCR) (Not Detectd) SARS-CoV-2 (PCR) (Not Detectd) 06/17/24 06/17/24 06/17/24 Range/Units 10:03 10:03 10:03 WBC (3.8-10.6) k/uL RBC (3.80-5.40) m/uL Hgb (11.4-16.0) gm/dL Hct (34.0-46.0) % MCV (80.0-100.0) fL MCH (25.0-35.0) pg MCHC (31.0-37.0) g/dL RDW (11.5-15.5) % Plt Count (150-450) k/uL MPV Neutrophils % % Lymphocytes % % Monocytes % % Eosinophils % % Basophils % % Neutrophils # (1.3-7.7) k/uL Lymphocytes # (1.0-4.8) k/uL Monocytes # (0-1.0) k/uL Eosinophils # (0-0.7) k/uL Basophils # (0-0.2) k/uL Hypochromasia Anisocytosis Macrocytosis PT (10.0-12.5) sec INR (<1.2) APTT (22.0-30.0) sec Sodium (137-145) mmol/L Potassium (3.5-5.1) mmol/L Chloride (98-107) mmol/L Carbon Dioxide (22-30) mmol/L Anion Gap mmol/L BUN (7-17) mg/dL Creatinine (0.52-1.04) mg/dL Est GFR (CKD-EPI)AfAm (>60 ml/min/1.73 sqM) Est GFR (CKD-EPI)NonAf (>60 ml/min/1.73 sqM) Glucose (74-99) mg/dL Plasma Lactic Acid [place] 0.8 (0.7-2.0) mmol/L Calcium (8.4-10.2) mg/dL Magnesium (1.6-2.3) mg/dL Total Bilirubin (0.2-1.3) mg/dL AST (14-36) U/L ALT (4-34) U/L Alkaline Phosphatase (38-126) U/L Troponin I 0.024 (0.000-0.034) ng/mL Total Protein (6.3-8.2) g/dL Albumin (3.5-5.0) g/dL TSH (0.465-4.680) mIU/L Urine Color Urine Appearance (Clear) Urine pH (5.0-8.0) Ur Specific [place] (1.001-1.035) Urine Protein (Negative) Urine Glucose (UA) (Negative) Urine Ketones (Negative) Urine Blood (Negative) Urine Nitrite (Negative) Urine Bilirubin (Negative) Urine Urobilinogen (<2.0) mg/dL Ur Leukocyte Esterase (Negative) Urine RBC (0-5) /hpf Urine WBC (0-5) /hpf Ur Squamous Epith Cells (0-4) /hpf Urine Mucus (None) /hpf Influenza Type A (PCR) Not Detected (Not Detectd) Influenza Type B (PCR) Not Detected (Not Detectd) RSV (PCR) Not Detected (Not Detectd) SARS-CoV-2 (PCR) Not Detected (Not Detectd) 06/17/24 Range/Units 10:20 WBC (3.8-10.6) k/uL RBC (3.80-5.40) m/uL Hgb (11.4-16.0) gm/dL Hct (34.0-46.0) % MCV (80.0-100.0) fL MCH (25.0-35.0) pg MCHC (31.0-37.0) g/dL RDW (11.5-15.5) % Plt Count (150-450) k/uL MPV Neutrophils % % Lymphocytes % % Monocytes % % Eosinophils % % Basophils % % Neutrophils # (1.3-7.7) k/uL Lymphocytes # (1.0-4.8) k/uL Monocytes # (0-1.0) k/uL Eosinophils # (0-0.7) k/uL Basophils # (0-0.2) k/uL Hypochromasia Anisocytosis Macrocytosis PT (10.0-12.5) sec INR (<1.2) APTT (22.0-30.0) sec Sodium (137-145) mmol/L Potassium (3.5-5.1) mmol/L Chloride (98-107) mmol/L Carbon Dioxide (22-30) mmol/L Anion Gap mmol/L BUN (7-17) mg/dL Creatinine (0.52-1.04) mg/dL Est GFR (CKD-EPI)AfAm (>60 ml/min/1.73 sqM) Est GFR (CKD-EPI)NonAf (>60 ml/min/1.73 sqM) Glucose (74-99) mg/dL Plasma Lactic Acid [place] (0.7-2.0) mmol/L Calcium (8.4-10.2) mg/dL Magnesium (1.6-2.3) mg/dL Total Bilirubin (0.2-1.3) mg/dL AST (14-36) U/L ALT (4-34) U/L Alkaline Phosphatase (38-126) U/L Troponin I (0.000-0.034) ng/mL Total Protein (6.3-8.2) g/dL Albumin (3.5-5.0) g/dL TSH (0.465-4.680) mIU/L Urine Color Yellow Urine Appearance Clear (Clear) Urine pH 5.5 (5.0-8.0) Ur Specific [place] 1.011 (1.001-1.035) Urine Protein 1+ H (Negative) Urine Glucose (UA) Negative (Negative) Urine Ketones Negative (Negative) Urine Blood Trace H (Negative) Urine Nitrite Negative (Negative) Urine Bilirubin Negative (Negative) Urine Urobilinogen <2.0 (<2.0) mg/dL Ur Leukocyte Esterase Moderate H (Negative) Urine RBC 6 H (0-5) /hpf Urine WBC 16 H (0-5) /hpf Ur Squamous Epith Cells <1 (0-4) /hpf Urine Mucus Rare H (None) /hpf Influenza Type A (PCR) (Not Detectd) Influenza Type B (PCR) (Not Detectd) RSV (PCR) (Not Detectd) SARS-CoV-2 (PCR) (Not Detectd) Disposition Clinical Impression: UTI (urinary tract infection), Gravely disabled Disposition: ADMITTED IP TO THIS HOSP Condition: Fair Referrals: Musa Feliciano MD [Primary Care Provider] - 1-2 days Decision Time: 11:37
[2024-06-17 10:15] LABS: Anisocytosis Moderate; Basophils % (A) 0 %; Eosinophils # (A) 0.4 k/uL (0-0.7); Eosinophils % (A) 2 %; HGB 10.2 gm/dL (11.4-16.0); Hypochromasia Slight; Lymphocytes # (A) 1.7 k/uL (1.0-4.8); Lymphocytes % (A) 10 %; MCH 29.2 pg (25.0-35.0); Macrocytosis Slight; Mean Platelet Volume 9.7; Monocytes # (A) 0.6 k/uL (0-1.0); Monocytes % (A) 3 %; Neutrophils # (A) 13.7 k/uL (1.3-7.7); Neutrophils % (A) 82 %; Platelet Count 221 k/uL (150-450); RBC 3.51 m/uL (3.80-5.40); RDW 20.6 % (11.5-15.5); WBC 16.8 k/uL (3.8-10.6)
[2024-06-17 10:27] LABS: ALT 18 U/L (4-34); AST 31 U/L (14-36); African American GFR (CKD) 20 (>60 ml/min/1.73 sqM); Albumin 2.9 g/dL (3.5-5.0); Alkaline Phosphatase 296 U/L (38-126); Anion Gap 8 mmol/L; Blood Urea Nitrogen 81 mg/dL (7-17); Calcium 8.3 mg/dL (8.4-10.2); Carbon Dioxide 27 mmol/L (22-30); Chloride 98 mmol/L (98-107); Glucose 118 mg/dL (74-99); Magnesium 1.8 mg/dL (1.6-2.3); Non-African American GFR(CKD) 17 (>60 ml/min/1.73 sqM); Potassium 3.7 mmol/L (3.5-5.1); Sodium 133 mmol/L (137-145); Total Bilirubin 0.7 mg/dL (0.2-1.3); Total Protein 5.8 g/dL (6.3-8.2)
[2024-06-17 10:34] LABS: Appearance,Urine Clear (Clear); Bilirubin,Urine Negative (Negative); Blood,Urine Trace (Negative); Color,Urine Yellow; Glucose,Urine (UA) Negative (Negative); Ketones,Urine Negative (Negative); Leukocyte Esterase,Urine Moderate (Negative); Mucus,Urine Rare /hpf; Nitrite,Urine Negative (Negative); PH, Urine 5.5 (5.0-8.0); Protein,Urine 1+ (Negative); RBC,Urine 6 /hpf (0-5); Specific Gravity,Urine 1.011 (1.001-1.035); Squamous Epithelial Cell,Urine <1 /hpf (0-4); Urobilinogen,Urine <2.0 mg/dL (<2.0); WBC,Urine 16 /hpf (0-5)
[2024-06-17 10:36] LABS: INR 1.1 (<1.2); Prothrombin Time 11.7 sec (10.0-12.5)
--- NOTE | 2024-06-17 11:02 | XR ---
EXAMINATION TYPE: XR abdomen acute w cxr DATE OF EXAM: 06/17/2024 10:36 AM CLINICAL INDICATION: Female, 83 years old with history of weakness; PHH COMPARISON: None. TECHNIQUE: Two radiographic views of the abdomen (upright and supine) and a frontal chest radiograph were obtained. FINDINGS CHEST: Lungs/Pleura: Moderate left pleural effusion with associated atelectasis.. There is no evidence of ri ght pleural effusion, focal consolidation or pneumothorax. Mediastinum: Unremarkable. Vasculature: Normal. Heart: Normal in size. 2-lead cardiac conduction device with leads project over the right atrium and right ventricle. Musculoskeletal: The osseous structures are intact. Severe degeneration changes of the shoulders with joint space narrowing and osteophyte formation and [id number] articulation.. Other findings: No significant. FINDINGS ABDOMEN: Bowel gas pattern: Normal without dilated loops of small or large bowel. Fecal material and gas are d emonstrated throughout the colon and rectum. Abnormal calcifications: None. Musculoskeletal: Normal. Other: None. IMPRESSION: 1. No radiographic evidence for acute abdominal process. 2. Moderate left pleural effusion. 3. Severe bilateral shoulder osteoarthrosis.
[2024-06-17] MEDS ORDERED: NALOXONE 0.4 MG/ML 1 ML VIAL IV PRN (11:34)
[2024-06-17] MEDS: ERTAPENEM 1 GM in SODIUM CHLORIDE 0.9% 50 ML IVPB STA (12:37)
[2024-06-17] MEDS: SODIUM CHLORIDE 0.9% 1,000 ML IV SCH (12:38)
--- NOTE | 2024-06-17 15:37 | P.HPIM ---
History of Present Illness H&P Date: 06/17/24 Patient is a 83-year-old female with history of hypertension, dyslipidemia, CAD, diastolic CHF, prior valve replacement, CKD stage IV with chronic indwelling Ordoñez, status post pacemaker, COPD on 2 L, permanent atrial fibrillation on Eliquis presenting with suprapubic pain. She is also complaining of "not feeling right". She claims that she gets her Ordoñez catheter exchanged every 2 weeks, but has not gotten exchanged for a while. She did get it exchanged this morning and it made her feel a lot better. She denies any fevers or chills. She denies any chest pain, shortness of breath, abdominal pain, has some nausea, denies any vomiting, is occasionally constipated, last bowel movement this morning. She is bed ridden for the last 1-1/2 years. She currently lives with her at home, and has a abalone fisherman who comes in every day. In the ED, temperature was 97.5, pulse 65, respiratory rate 20, blood pressure 144/60, saturating at 98% on 2 L. WBC 16.8, hemoglobin 10.2 around baseline, sodium 133, creatinine 2.51 around baseline, potassium 3.7, magnesium 1.8, troponin 0.024, urinalysis positive for moderate leukocyte esterase, respiratory viral panel negative. Lactate 0.8. EKG independently interpreted, shows ventricularly paced rhythm. Acute abdomen series shows moderate left pleural effusion. Patient admitted for sepsis secondary to urinary tract infection. Pertinent positives and negatives as discussed in HPI, a complete review of systems was performed and all other systems are negative. Patient seen and examined at bedside. Vital signs reviewed General: nontoxic, no distress, appears at stated age, chronically ill-appearing Derm: warm, dry Head: atraumatic, normocephalic, symmetric Eyes: EOMI, no lid lag, anicteric sclera, pupils equal round reactive to light ENT: Nose and ears atraumatic Neck: No thyromegaly, supple Mouth: no lip lesion, mucus membranes moist Cardiovascular: S1S2 reg, systolic murmur with click, trace peripheral edema Lungs: clear to auscultation bilateral, no rhonchi, no rales, no wheeze, no accessory muscle use Abdominal: soft, nontender to palpation, no guarding, no appreciable organomegaly Ext: no gross muscle atrophy, muscle strength muscle strength 2 out of 5 in lower extremities, no contractures Neuro: CN II-XII grossly intact Psych: Alert, oriented, appropriate affect Assessment/Plan: Active: Sepsis secondary to urinary tract infection Chronic indwelling Ordoñez catheter -Hemodynamically stable -Patient has a history of diastolic CHF and moderate left-sided pleural effusion, judicious use of IV fluids -Hold antihypertensives and diuretics -Reportedly patient has severe allergy to Keflex and ciprofloxacin -No prior cultures available -Urine culture and blood cultures ordered -Ceftriaxone ordered 2 g IV every 24 hours -ID has been consulted by ED -Catheter exchanged today Debility Generalized weakness -PT/OT Left pleural effusion Chronic hypoxic respiratory failure, on 2 L -No new respiratory complaints Chronic: Gout Hypertension Diastolic CHF CAD Complete heart block status post pacemaker CKD stage IV The patient is admitted with an anticipated less than 2 midnight stay as observation status for evaluation of urinary tract infection. Surrogate decision-maker: Spouse CODE STATUS: Full code DVT prophylaxis: Eliquis Anticipated discharge date: Pending clinical course Anticipated discharge place: Pending clinical course A total of 55 minutes was spent on the care of this complex patient more than 50% of the time was spent in counseling and care coordination. Past Medical History Past Medical History: Coronary Artery Disease (CAD), Heart Failure, Diabetes Mellitus, Hyperlipidemia, Hypertension, Renal Disease Additional Past Medical History / Comment(s): pacemaker for complete heart block, AVR- pig History of Any Multi-Drug Resistant Organisms: None Reported Past Surgical History: Appendectomy, Cholecystectomy, Coronary Bypass/CABG, Hysterectomy, Pacemaker, Tonsillectomy Additional Past Surgical History / Comment(s): CABG x3 11 years Past Anesthesia/Blood Transfusion Reactions: No Reported Reaction Type of Cardiac Device: Permanent Pacemaker Device Placement Date:: 02/20/23 Past Psychological History: No Psychological Hx Reported Smoking Status: Never smoker Past Alcohol Use History: None Reported Past Drug Use History: None Reported - Past Family History Father History Unknown: Yes Family Medical History: COPD Medications and Allergies Home Medications Medication Instructions Recorded Confirmed Type Simvastatin [Zocor] 20 mg PO HS 08/22/22 06/17/24 History Ubidecarenone [Co Q-10] 30 mg PO DAILY 09/06/23 06/17/24 History calcitrioL 0.25 mcg PO SA 11/17/23 06/17/24 History Apixaban [Eliquis] 2.5 mg PO BID 02/08/24 06/17/24 History allopurinoL [Zyloprim] 100 mg PO DAILY 05/06/24 06/17/24 History Aspirin 81 mg PO DAILY 30 Days #30 tab 05/20/24 06/17/24 Rx Cholecalciferol (Vitamin D3) 50 mcg PO DAILY 06/17/24 06/17/24 History [Vitamin D3 (50 Mcg = 2000 Iu)] Nitrofurantoin Monohyd/M-Cryst 100 mg PO Q12HR 06/17/24 06/17/24 History [Macrobid] Ondansetron Odt [Zofran Odt] 8 mg PO Q8HR PRN 06/17/24 06/17/24 History Torsemide [Demadex] 20 mg PO DAILY 06/17/24 06/17/24 History amLODIPine [Norvasc] 5 mg PO DAILY 06/17/24 06/17/24 History Allergies Allergy/AdvReac Type Severity Reaction Status Date / Time cephalexin Allergy Unknown Verified 06/17/24 11:49 ciprofloxacin [From Cipro] Allergy Unknown Verified 06/17/24 11:49 codeine Allergy Unknown Verified 06/17/24 11:49 Physical Exam Vitals: Vital Signs Temp Pulse Resp BP Pulse Ox 06/17/24 14:24 61 16 144/61 100 06/17/24 13:33 60 18 135/91 100 06/17/24 12:41 60 18 129/65 99 06/17/24 11:52 60 18 141/71 100 06/17/24 09:36 97.5 F L 65 20 144/60 98 Intake and Output 06/16/24 06/17/24 06/17/24 22:59 06:59 14:59 Output Total 150 Balance -150 Output: Urine 150 Uretheral (Ordoñez) 150 Other: Weight 58.967 kg Results CBC & Chem 7: 06/17/24 10:03 06/17/24 10:03 Labs: Abnormal Lab Results - Last 24 Hours (Table) 06/17/24 06/17/24 06/17/24 Range/Units 10:03 10:03 10:20 WBC 16.8 H (3.8-10.6) k/uL RBC 3.51 L (3.80-5.40) m/uL Hgb 10.2 L (11.4-16.0) gm/dL Hct 33.0 L (34.0-46.0) % RDW 20.6 H (11.5-15.5) % Neutrophils # 13.7 H (1.3-7.7) k/uL Sodium 133 L (137-145) mmol/L BUN 81 H (7-17) mg/dL Creatinine 2.51 H (0.52-1.04) mg/dL Glucose 118 H (74-99) mg/dL Calcium 8.3 L (8.4-10.2) mg/dL Alkaline Phosphatase 296 H (38-126) U/L Total Protein 5.8 L (6.3-8.2) g/dL Albumin 2.9 L (3.5-5.0) g/dL Urine Protein 1+ H (Negative) Urine Blood Trace H (Negative) Ur Leukocyte Esterase Moderate H (Negative) Urine RBC 6 H (0-5) /hpf Urine WBC 16 H (0-5) /hpf Urine Mucus Rare H (None) /hpf
[2024-06-17] MEDS: ATORVASTATIN 10 MG TAB PO SCH (20:19)
[2024-06-17] MEDS: APIXABAN 2.5 MG TABLET PO SCH (20:19)
[2024-06-18 07:49] LABS: Anisocytosis Moderate; Basophils % (A) 0 %; Eosinophils # (A) 0.5 k/uL (0-0.7); Eosinophils % (A) 4 %; HCT 30.1 % (34.0-46.0); HGB 9.7 gm/dL (11.4-16.0); Hypochromasia Slight; Lymphocytes # (A) 1.5 k/uL (1.0-4.8); Lymphocytes % (A) 11 %; MCH 29.9 pg (25.0-35.0); MCV 93.5 fL (80.0-100.0); Macrocytosis Slight; Monocytes # (A) 0.7 k/uL (0-1.0); Monocytes % (A) 5 %; Neutrophils # (A) 10.3 k/uL (1.3-7.7); Neutrophils % (A) 78 %; Platelet Count 205 k/uL (150-450); RBC 3.22 m/uL (3.80-5.40); RDW 20.6 % (11.5-15.5); WBC 13.2 k/uL (3.8-10.6)
[2024-06-18 07:50] LABS: African American GFR (CKD) 20 (>60 ml/min/1.73 sqM); Anion Gap 5 mmol/L; Blood Urea Nitrogen 77 mg/dL (7-17); Calcium 7.8 mg/dL (8.4-10.2); Carbon Dioxide 25 mmol/L (22-30); Chloride 101 mmol/L (98-107); Glucose 89 mg/dL (74-99); Magnesium 1.8 mg/dL (1.6-2.3); Non-African American GFR(CKD) 18 (>60 ml/min/1.73 sqM); Potassium 3.8 mmol/L (3.5-5.1); Sodium 131 mmol/L (137-145)
--- NOTE | 2024-06-18 07:59 | P.CONS ---
History of Present Illness - Reason for Consult Consult date: 06/17/24 UTI, cephalosporin and Cipro allergy Requesting physician: Jah Woo - Chief Complaint Weakness not feeling well x few days - History of Present Illness Patient is a 83-year-old female with a past medical history significant for diabetes mellitus hypertension hyperlipidemia heart failure with the patient did have a chronic indwelling Ordoñez catheter presenting to the hospital for evaluation not feeling well over the last few days patient denies high-grade fever or any chills denies any headache or URI symptoms no chest pain shortness of breath or cough patient complaining of some lower abdominal discomfort nausea but no vomiting no diarrhea rather constipated patient Ordoñez catheter last changed about 3 weeks ago and has been changed in the ER on p resentation to the hospital the patient was afebrile and no fever have been recorded subsequently patient was not tachycardic or hypotensive she did have a white count of 16.8 with a left shift BUN and creatinine has been elevated did have a positive UA influenza RSV COVID testing was negative patient did have acute abdominal series moderate left effusion and no radiographic evidence for acute abdominal process patient has been admitted to the hospital started on Rocephin infectious disease was consulted for further management also received a dose of Invanz in the ER Review of Systems Positive point and negatives has been mentioned in the HPI, complete review of systems was performed and all other systems are negative Past Medical History Past Medical History: Coronary Artery Disease (CAD), Heart Failure, Diabetes Mellitus, Hyperlipidemia, Hypertension, Renal Disease Additional Past Medical History / Comment(s): pacemaker for complete heart block, AVR- pig History of Any Multi-Drug Resistant Organisms: None Reported Past Surgical History: Appendectomy, Cholecystectomy, Coronary Bypass/CABG, Hysterectomy, Pacemaker, Tonsillectomy Additional Past Surgical History / Comment(s): CABG x3 11 years Past Anesthesia/Blood Transfusion Reactions: No Reported Reaction Type of Cardiac Device: Permanent Pacemaker Device Placement Date:: 02/20/23 Past Psychological History: No Psychological Hx Reported Smoking Status: Never smoker Past Alcohol Use History: None Reported Past Drug Use History: None Reported - Past Family History Father History Unknown: Yes Family Medical History: COPD Medications and Allergies Home Medications Medication Instructions Recorded Confirmed Type Simvastatin [Zocor] 20 mg PO HS 08/22/22 06/17/24 History Ubidecarenone [Co Q-10] 30 mg PO DAILY 09/06/23 06/17/24 History calcitrioL 0.25 mcg PO SA 11/17/23 06/17/24 History Apixaban [Eliquis] 2.5 mg PO BID 02/08/24 06/17/24 History allopurinoL [Zyloprim] 100 mg PO DAILY 05/06/24 06/17/24 History Aspirin 81 mg PO DAILY 30 Days #30 tab 05/20/24 06/17/24 Rx Cholecalciferol (Vitamin D3) 50 mcg PO DAILY 06/17/24 06/17/24 History [Vitamin D3 (50 Mcg = 2000 Iu)] Nitrofurantoin Monohyd/M-Cryst 100 mg PO Q12HR 06/17/24 06/17/24 History [Macrobid] Ondansetron Odt [Zofran ODT] 8 mg PO Q8HR PRN 06/17/24 06/17/24 History Torsemide [Demadex] 20 mg PO DAILY 06/17/24 06/17/24 History amLODIPine [Norvasc] 5 mg PO DAILY 06/17/24 06/17/24 History Fluconazole [Diflucan] 200 mg PO DAILY 7 Days #7 tab 06/22/24 Rx Linezolid [Zyvox] 600 mg PO Q12H 14 Days #28 tab 06/22/24 Rx metroNIDAZOLE [Flagyl] 500 mg PO TID 7 Days #21 tab 06/22/24 Rx Allergies Allergy/AdvReac Type Severity Reaction Status Date / Time cephalexin Allergy Unknown Verified 06/17/24 11:49 ciprofloxacin [From Cipro] Allergy Unknown Verified 06/17/24 11:49 codeine Allergy Unknown Verified 06/17/24 11:49 Physical Exam Vitals: Vital Signs Temp Pulse Resp BP Pulse Ox 06/17/24 12:41 60 18 129/65 99 06/17/24 11:52 60 18 141/71 100 06/17/24 09:36 97.5 F L 65 20 144/60 98 Intake and Output 06/16/24 06/17/24 06/17/24 22:59 06:59 14:59 Output Total 150 Balance -150 Output: Urine 150 Uretheral (Ordoñez) 150 Other: Weight 58.967 kg GENERAL DESCRIPTION: Elderly female lying in bed, no distress. No tachypnea or accessory muscle of respiration use. HEENT: Shows Pallor , no scleral icterus. Oral mucous membrane is dry. No pharyngeal erythema or thrush NECK: Trachea central, no thyromegaly. LUNGS: Unlabored breathing. Clear to auscultation anteriorly. No wheeze or crackle. HEART: S1, S2, regular rate and rhythm. No loud murmur ABDOMEN: Soft, no tenderness , guarding or rigidity, no organomegaly EXTREMITIES: No edema of feet. SKIN: No rash, no masses palpable. NEUROLOGICAL: The patient is awake, alert, oriented x3, mood and affect normal. Results CBC & Chem 7: 06/22/24 07:16 06/22/24 07:16 Labs: Abnormal Lab Results - Last 24 Hours (Table) 06/17/24 06/17/24 06/17/24 Range/Units 10:03 10:03 10:20 WBC 16.8 H (3.8-10.6) k/uL RBC 3.51 L (3.80-5.40) m/uL Hgb 10.2 L (11.4-16.0) gm/dL Hct 33.0 L (34.0-46.0) % RDW 20.6 H (11.5-15.5) % Neutrophils # 13.7 H (1.3-7.7) k/uL Sodium 133 L (137-145) mmol/L BUN 81 H (7-17) mg/dL Creatinine 2.51 H (0.52-1.04) mg/dL Glucose 118 H (74-99) mg/dL Calcium 8.3 L (8.4-10.2) mg/dL Alkaline Phosphatase 296 H (38-126) U/L Total Protein 5.8 L (6.3-8.2) g/dL Albumin 2.9 L (3.5-5.0) g/dL Urine Protein 1+ H (Negative) Urine Blood Trace H (Negative) Ur Leukocyte Esterase Moderate H (Negative) Urine RBC 6 H (0-5) /hpf Urine WBC 16 H (0-5) /hpf Urine Mucus Rare H (None) /hpf Assessment and Plan (1) Catheter-associated urinary tract infection Status: Acute Code(s): T83.511A - I/I REACT D/T INDWELLING URETHRAL CATHETER, INIT; N39.0 - URINARY TRACT INFECTION, SITE NOT SPECIFIED SNOMED Code(s): 542540212 (2) Allergy to multiple antibiotics Status: Acute Code(s): Z88.1 - ALLERGY STATUS TO OTHER ANTIBIOTIC AGENTS SNOMED Code(s): 556878102 Plan: 1patient presented hospital for generalized weakness not feeling well likely related to the catheter associated UTI in this patient with a chronic indwelling catheter for urinary retention and did have significantly positive UA with elevated white count. 2patient with multiple antibiotic ALLERGIES that would limit the number of antibiotic safe to use but no documented anaphylaxis 3-patient be started on Rocephin which she has tolerated to continue while waiting for the culture to finalize We will follow on clinical condition and cultures to further adjust medication if needed Thank you for this consultation we will follow the patient along with you Dictation was produced using [employer] dictation software. please excuse any grammatical, word or spelling errors. Time with Patient: Greater than 30
[2024-06-18] MEDS: CHOLECALCIFEROL 25 MCG (1000 IU) TABLET PO SCH (09:36)
[2024-06-18] MEDS: ASPIRIN 81 MG PO SCH (09:36)
[2024-06-18] MEDS: allopurinoL 100 MG TAB PO SCH (09:36)
[2024-06-18 11:14] VITALS: BMI 20.9
--- NOTE | 2024-06-18 14:07 | P.PN ---
Subjective Progress Note Date: 06/18/24 Principal diagnosis: Reason for follow-up is a urinary tract infection Patient is a 83-year-old female with a past medical history significant for diabetes mellitus hypertension hyperlipidemia heart failure with the patient did have a chronic indwelling Ordoñez catheter presenting to the hospital for evaluation not feeling well and weakness along with nausea has been diagnosed with a catheter associated UTI. Patient did have multiple antibiotic allergies prompting this consultation. On today's visit that is 06/18/2024, the patient continues to be afebrile, the patient is on room air and breathing comfortably, the Pt denies having any chest pain or cough, the patient denies having any abdominal pain no vomiting or any diarrhea patient mention feeling slightly better today. Patient white count is down to 13.2, creatinine is 2.42 Objective - Vital Signs Vital signs: Vital Signs Temp 98.3 F 06/18/24 06:58 Pulse 60 06/18/24 06:58 Resp 16 06/18/24 06:58 BP 131/55 06/18/24 06:58 Pulse Ox 98 06/18/24 06:58 FiO2 Intake & Output 06/17/24 06/18/24 06/18/24 18:59 06:59 18:59 Output Total 925 400 Balance -925 -400 Weight 58.967 kg 58.967 kg Output: Urine 925 400 Uretheral (Ordoñez) 925 Other: Voiding Method Indwelling Catheter Indwelling Catheter # Bowel Movements 1 - Exam GENERAL DESCRIPTION: An elderly female up in the chair in no distress RESPIRATORY SYSTEM: Unlabored breathing , decreased breath sounds at bases HEART: S1 S2 regular rate and rhythm , ABDOMEN: Soft , no tenderness EXTREMITIES: No edema feet - Labs CBC & Chem 7: 06/18/24 06:16 06/18/24 06:16 Labs: Abnormal Lab Results - Last 24 Hours (Table) 06/18/24 06/18/24 Range/Units 06:16 06:16 WBC 13.2 H (3.8-10.6) k/uL RBC 3.22 L (3.80-5.40) m/uL Hgb 9.7 L (11.4-16.0) gm/dL Hct 30.1 L (34.0-46.0) % RDW 20.6 H (11.5-15.5) % Neutrophils # 10.3 H (1.3-7.7) k/uL Sodium 131 L (137-145) mmol/L BUN 77 H (7-17) mg/dL Creatinine 2.42 H (0.52-1.04) mg/dL Calcium 7.8 L (8.4-10.2) mg/dL Assessment and Plan (1) Catheter-associated urinary tract infection Current Visit: Yes Status: Acute Code(s): T83.511A - I/I REACT D/T INDWELLING URETHRAL CATHETER, INIT; N39.0 - URINARY TRACT INFECTION, SITE NOT SPECIFIED SNOMED Code(s): 987581658 (2) Allergy to multiple antibiotics Current Visit: Yes Status: Acute Code(s): Z88.1 - ALLERGY STATUS TO OTHER ANTIBIOTIC AGENTS SNOMED Code(s): 989652819 Plan: 1patient presented hospital for generalized weakness not feeling well likely related to the catheter assisted UTI in this patient with a chronic indwelling catheter for urinary retention and did have significantly positive UA with elevated white count. 2patient with multiple antibiotic ALLERGIES that would limit the number of antibiotic safe to use but no documented anaphylaxis 3-patient has tolerated Rocephin in the patient white count is trending down continue while waiting for the culture to finalize Dictation was produced using [employer] dictation software. please excuse any gram matical, word or spelling errors. Time with Patient: Less than 30
[2024-06-18] MEDS: DAPTOmycin 350 MG in SODIUM CHLORIDE 0.9% 50 ML IVPB SCH (16:06)
--- NOTE | 2024-06-18 18:39 | P.PN ---
Subjective Progress Note Date: 06/18/24 Principal diagnosis: Hospital Course: 83-year-old female with history of hypertension, dyslipidemia, CAD, diastolic CHF, prior valve replacement, CKD stage IV with chronic indwelling Ordoñez, status post pacemaker, COPD on 2 L, permanent atrial fibrillation on Eliquis presenting with suprapubic pain. Subjective: Patient seen at bedside. No acute events overnight. Pertinent positives and negatives discussed above, a complete review of systems was preformed and all the other systems were negative. Vitals Signs Reviewed. General: non toxic, no distress, appears at stated age, normal weight Derm: no unusual rashes/lesions, warm Head: atraumatic, normocephalic, symmetric Eyes: EOMI, no lid lag, anicteric sclera, pupils equal round reactive to light ENT: Nose and ears atraumatic Neck: No cervical lymphadenopathy, trachea midline, supple Mouth: no lip lesion, mucus membranes moist Cardiovascular: S1S2 reg, no murmur, positive dorsalis pedis pulse bilateral, no edema Lungs: Decreased air entry bilaterally, no rhonchi, no rales, no accessory muscle use Abdominal: soft, nontender to palpation, no guarding Ext: muscle strength 5 out of 5 in all 4 extremities grossly, no gross muscle atrophy, no contractures, Neuro: CN II-XI grossly intact, no gross focal neuro deficits Psych: Alert, oriented, appropriate affect Data Reviewed Today: Patient Labs: WBCs 13.2 downtrending, hemoglobin 9.7, platelets 205. Sodium 131, potassium 3.8, chloride 12/21/2010, bicarb 25, BUN 77, creatinine 2.42(near baseline), calcium 7.8, mag 1.8. Imaging: Abdominal x-ray showed moderate left pleural effusion and severe bilateral shoulder osteoarthrosis Assessment and Plan: Sepsis secondary to urinary tract infection Chronic indwelling Ordoñez catheter Blood culture positive for Enterococcus faecium with van A/B gene detected Indwelling catheter replaced yesterday -ID on board Discontinued ceftriaxone and started daptomycin Judicious use of IV fluids due to history of diastolic CHF and moderate left-sided pleural effusion -Antihypertensives and diuretics held Debility Generalized weakness PT/OT Mild hyponatremia, euvolemic Monitor labs Increase oral intake as tolerated Normocytic anemia Monitor labs Chronic: Gout Hypertension Diastolic CHF CAD Complete heart block status post pacemaker CKD stage IV F none E: Replete as needed N heart healthy A currently bedbound, requiring assistance DVT ppx: Eliquis Code Status: Full Anticipated discharge place: Pending clinical course Anticipated discharge time: Pending clinical course I saw and evaluated the patient during the calderon and critical portions of this encounter, and discussed the case in detail with the resident author of this note, I agree with the Assessment and Plan, and my changes, if any, are highlighted in blue. Objective - Vital Signs Vital signs: Vital Signs Temp 98.3 F 06/18/24 06:58 Pulse 60 06/18/24 06:58 Resp 16 06/18/24 06:58 BP 131/55 06/18/24 06:58 Pulse Ox 98 06/18/24 06:58 FiO2 Intake & Output 06/17/24 06/18/24 06/18/24 18:59 06:59 18:59 Output Total 925 400 Balance -925 -400 Weight 58.967 kg Output: Urine 925 400 Uretheral (Ordoñez) 925 Other: Voiding Method Indwelling Catheter # Bowel Movements 1 - Labs CBC & Chem 7: 06/18/24 06:16 06/18/24 06:16 Labs: Abnormal Lab Results - Last 24 Hours (Table) 06/17/24 06/17/24 06/17/24 Range/Units 10:03 10:03 10:20 WBC 16.8 H (3.8-10.6) k/uL RBC 3.51 L (3.80-5.40) m/uL Hgb 10.2 L (11.4-16.0) gm/dL Hct 33.0 L (34.0-46.0) % RDW 20.6 H (11.5-15.5) % Neutrophils # 13.7 H (1.3-7.7) k/uL Sodium 133 L (137-145) mmol/L BUN 81 H (7-17) mg/dL Creatinine 2.51 H (0.52-1.04) mg/dL Glucose 118 H (74-99) mg/dL Calcium 8.3 L (8.4-10.2) mg/dL Alkaline Phosphatase 296 H (38-126) U/L Total Protein 5.8 L (6.3-8.2) g/dL Albumin 2.9 L (3.5-5.0) g/dL Urine Protein 1+ H (Negative) Urine Blood Trace H (Negative) Ur Leukocyte Esterase Moderate H (Negative) Urine RBC 6 H (0-5) /hpf Urine WBC 16 H (0-5) /hpf Urine Mucus Rare H (None) /hpf 06/18/24 06/18/24 Range/Units 06:16 06:16 WBC 13.2 H (3.8-10.6) k/uL RBC 3.22 L (3.80-5.40) m/uL Hgb 9.7 L (11.4-16.0) gm/dL Hct 30.1 L (34.0-46.0) % RDW 20.6 H (11.5-15.5) % Neutrophils # 10.3 H (1.3-7.7) k/uL Sodium 131 L (137-145) mmol/L BUN 77 H (7-17) mg/dL Creatinine 2.42 H (0.52-1.04) mg/dL Glucose (74-99) mg/dL Calcium 7.8 L (8.4-10.2) mg/dL Alkaline Phosphatase (38-126) U/L Total Protein (6.3-8.2) g/dL Albumin (3.5-5.0) g/dL Urine Protein (Negative) Urine Blood (Negative) Ur Leukocyte Esterase (Negative) Urine RBC (0-5) /hpf Urine WBC (0-5) /hpf Urine Mucus (None) /hpf
[2024-06-19] MEDS: IOPAMIDOL CONTRAST (ORAL USE) VIAL PO PRN (11:07)
--- NOTE | 2024-06-19 11:29 | P.PN ---
Subjective Progress Note Date: 06/19/24 Principal diagnosis: Hospital Course: 83-year-old female with history of hypertension, dyslipidemia, CAD, diastolic CHF, prior valve replacement, CKD stage IV with chronic indwelling Ordoñez, status post pacemaker, COPD on 2 L, permanent atrial fibrillation on Eliquis presented with suprapubic pain and admitted for sepsis secondary to urinary tract infection and chronic indwelling Ordoñez catheter. Subjective: Patient seen at bedside. No acute events overnight. Patient states she is feeling better denies any abdominal pain fevers chills nausea vomiting diarrhea. Pertinent positives and negatives discussed above, a complete review of systems was preformed and all the other systems were negative. Vitals Signs Reviewed. General: non toxic, no distress, appears at stated age, normal weight, resting comfortably in bed eating breakfast Derm: no unusual rashes/lesions, warm Head: atraumatic, normocephalic, symmetric Eyes: EOMI, no lid lag, anicteric sclera, pupils equal round reactive to light ENT: Nose and ears atraumatic Neck: No cervical lymphadenopathy, trachea midline, supple Mouth: no lip lesion, mucus membranes moist Cardiovascular: S1S2 reg, no murmur, positive dorsalis pedis pulse bilateral, no edema Lungs: Decreased air entry bilaterally, no rhonchi, no rales, no accessory muscle use Abdominal: soft, nontender to palpation, no guarding Ext: muscle strength 5 out of 5 in all 4 extremities grossly, no gross muscle atrophy, no contractures, Neuro: CN II-XI grossly intact, no gross focal neuro deficits Psych: Alert, oriented, appropriate affect Data Reviewed Today: Patient Labs: Imaging: Abdominal x-ray showed moderate left pleural effusion and severe bilateral shoulder osteoarthrosis Assessment and Plan: Sepsis secondary to urinary tract infection Chronic indwelling Ordoñez catheter Blood culture positive for Enterococcus faecium with van A/B gene detected Urine culture positive for Ivory albicans Indwelling catheter replaced yesterday -ID on board, discussed culture results 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 and will start oral Diflucan Discontinued ceftriaxone and started daptomycin Judicious use of IV fluids due to history of diastolic CHF and moderate left- sided pleural effusion -Antihypertensives and diuretics held Debility Generalized weakness PT/OT Mild hyponatremia, euvolemic Monitor labs Increase oral intake as tolerated Normocytic anemia Monitor labs Chronic: Gout Hypertension Diastolic CHF CAD Complete heart block status post pacemaker CKD stage IV F none E: Replete as needed N heart healthy A currently bedbound, requiring assistance DVT ppx: Eliquis Code Status: Full Anticipated discharge place: Pending clinical course Anticipated discharge time: Pending clinical course I saw and evaluated the patient during the calderon and critical portions of this encounter, and discussed the case in detail with the resident author of this note, I agree with the Assessment and Plan, and my changes, if any, are highligh sandra in blue. Objective - Vital Signs Vital signs: Vital Signs Temp 99.2 F 06/19/24 00:11 Pulse 59 L 06/19/24 00:11 Resp 17 06/19/24 00:11 BP 145/61 06/19/24 00:11 Pulse Ox 94 L 06/19/24 00:11 FiO2 Intake & Output 06/18/24 06/19/24 06/19/24 18:59 06:59 18:59 Intake Total 318 Output Total 0 1100 Balance 318 -1100 Weight 58.967 kg Intake: Oral 318 Output: Urine 1100 Uretheral (Ordoñez) 200 Stool 0 0 Other: Voiding Method Indwelling Catheter Indwelling Catheter - Labs CBC & Chem 7: 06/19/24 10:32 06/19/24 10:32 Labs: Microbiology - Last 24 Hours (Table) 06/17/24 16:32 Urine Culture - Final Urine,Catheterized Ivory albicans 06/17/24 17:35 Blood Culture Gram Stain - Preliminary Blood Blood Culture - Preliminary Molecular ID
[2024-06-19] MEDS: FLUCONAZOLE 100 MG TAB PO SCH (12:30)
[2024-06-19 12:34] LABS: Anisocytosis Moderate; Basophils # (A) 0.1 k/uL (0-0.2); Basophils % (A) 1 %; Eosinophils # (A) 0.5 k/uL (0-0.7); Eosinophils % (A) 5 %; HCT 33.2 % (34.0-46.0); HGB 10.3 gm/dL (11.4-16.0); Hypochromasia Slight; Lymphocytes # (A) 1.8 k/uL (1.0-4.8); Lymphocytes % (A) 18 %; MCHC 31.1 g/dL (31.0-37.0); MCV 96.3 fL (80.0-100.0); Macrocytosis Slight; Mean Platelet Volume 11.5; Monocytes # (A) 0.8 k/uL (0-1.0); Monocytes % (A) 8 %; Neutrophils # (A) 6.6 k/uL (1.3-7.7); Neutrophils % (A) 67 %; Platelet Count 220 k/uL (150-450); RBC 3.45 m/uL (3.80-5.40); RDW 20.8 % (11.5-15.5); WBC 9.9 k/uL (3.8-10.6)
[2024-06-19 12:42] LABS: African American GFR (CKD) 20 (>60 ml/min/1.73 sqM); Anion Gap 9 mmol/L; Blood Urea Nitrogen 73 mg/dL (7-17); Carbon Dioxide 24 mmol/L (22-30); Chloride 102 mmol/L (98-107); Glucose 200 mg/dL (74-99); Non-African American GFR(CKD) 18 (>60 ml/min/1.73 sqM); Potassium 3.6 mmol/L (3.5-5.1); Sodium 135 mmol/L (137-145)
--- NOTE | 2024-06-19 13:42 | CT ---
EXAMINATION TYPE: CT abdomen pelvis wo con DATE OF EXAM: 06/19/2024 HISTORY: VRE CT DLP: 894 mGycm. Automated Exposure Control for Dose Reduction was Utilized. TECHNIQUE: CT scan of the abdomen and pelvis is performed without oral or IV contrast. COMPARISON: None FINDINGS: Within the limitations of a non-contrast study, the following observations are made. Moderate to large sized left and [id number] right pleural effusion. There is ectasia of the a deidra with dense calcification of the thoracic aorta, coronary arteries and aortic valve. Partial incl usion the [id number]-[id number] of multiple cardiac leads. Dense mitral annular calcifications. Diffuse anasarca. There is multilevel hypertrophic and degenerative changes of the spine. Bilateral h ip arthropathy. Generalized osteopenia. Severe multilevel degenerative disc disease with scoliosis. Calcification the tracheobronchial tree. Artifact limits assessment of the liver and spleen. Surgical clips in the gallbladder fossa. Mild induration of the fat adjacent the pancreatic head. Pancreatic mildly prominent but limited by noncontrast technique. Median sternotomy changes noted. There is a Ordoñez catheter. Bladder is nondistended. No evidence of bowel obstruction. There is wall t hickening involving the right colon could be related to the colitis or mass. There is a small amount of ascites. Diverticulosis of the colon. Small hiatal hernia. Nodularity of the adrenal glands nonspe cific but most likely related to benign adenoma or hyperplasia. No hydronephrosis or nephrolithiasis . IMPRESSION: 1. Right colonic\cecal wall thickening correlate for colitis versus mass. 2. Anasarca with a small amount of ascites. 3. Moderate to large left and small to moderate right pleural effusion with adjacent consolidation. 4. Limited assessment of pancreas due to lack of contrast. Question mild induration of the peripancre atic fat would recommend correlation with pancreatic enzymes to exclude mild pancreatitis or pancreat ic mass.
[2024-06-20] MEDS ORDERED: ACETAMINOPHEN TAB 325 MG TAB ONE (01:32)
[2024-06-20] MEDS: ACETAMINOPHEN TAB 325 MG TAB ONE (04:07)
--- NOTE | 2024-06-20 10:00 | P.PN ---
Subjective Progress Note Date: 06/19/24 Principal diagnosis: Reason for follow-up is a urinary tract infection Patient is a 83-year-old female with a past medical history significant for diabetes mellitus hypertension hyperlipidemia heart failure with the patient did have a chronic indwelling Ordoñez catheter presenting to the hospital for evaluation not feeling well and weakness along with nausea has been diagnosed with a catheter associated UTI. Patient did have multiple antibiotic allergies prompting this consultation. On today's visit that is 06/19/2024, Patient is afebrile patient is currently on room air and denies having any shortness of breath, the patient denies any chest pain or cough, the patient denies any nausea vomiting did not have any abdominal pain and no diarrhea, no new symptoms. Patient white count is down to 13.2 creatinine is 2.42 Objective - Vital Signs Vital signs: Vital Signs Temp 97.4 F L 06/19/24 07:00 Pulse 72 06/19/24 08:00 Resp 17 06/19/24 07:00 BP 141/58 06/19/24 07:00 Pulse Ox 99 06/19/24 07:00 FiO2 Intake & Output 06/18/24 06/19/24 06/19/24 18:59 06:59 18:59 Intake Total 318 118 Output Total 0 1100 1 Balance 318 -1100 117 Weight 58.967 kg Intake: Oral 318 118 Output: Urine 1100 Uretheral (Ordoñez) 200 Stool 0 0 1 Other: Voiding Method Indwelling Catheter Indwelling Catheter Indwelling Catheter - Exam GENERAL DESCRIPTION: An elderly female up in the chair in no distress RESPIRATORY SYSTEM: Unlabored breathing , decreased breath sounds at bases HEART: S1 S2 regular rate and rhythm , ABDOMEN: Soft , no tenderness EXTREMITIES: No edema feet - Labs CBC & Chem 7: 06/19/24 10:32 06/19/24 10:32 Labs: Microbiology - Last 24 Hours (Table) 06/17/24 16:32 Urine Culture - Final Urine,Catheterized Ivory albicans 06/17/24 17:35 Blood Culture Gram Stain - Preliminary Blood Blood Culture - Preliminary Molecular ID Assessment and Plan (1) Catheter-associated urinary tract infection Current Visit: Yes Status: Acute Code(s): T83.511A - I/I REACT D/T INDWELLING URETHRAL CATHETER, INIT; N39.0 - URINARY TRACT INFECTION, SITE NOT SPECIFIED SNOMED Code(s): 555451022 (2) Allergy to multiple antibiotics Current Visit: Yes Status: Acute Code(s): Z88.1 - ALLERGY STATUS TO OTHER ANTIBIOTIC AGENTS SNOMED Code(s): 786062602 (3) VRE bacteremia Current Visit: Yes Status: Acute Code(s): R78.81 - BACTEREMIA; B95.2 - ENTEROCOCCUS THE CAUSE OF DISEASES CLASSIFIED ELSEWHERE; Z16.21 - RESISTANCE TO VANCOMYCIN SNOMED Code(s): 3119117075 Plan: 1patient presented hospital for generalized weakness not feeling well likely related to the catheter assisted UTI in this patient with a chronic indwelling catheter for urinary retention and did have significantly positive UA with elevated white count. 2patient with multiple antibiotic ALLERGIES that would limit the number of antibiotic safe to use but no documented anaphylaxis 3-patient urine has been finalized with Ivory and blood pressure has been finalized with the VRE question abdominal source we will check a CT of abdominal pelvis with oral contrast only because of her elevated creatinine for now continue with the daptomycin Diflucan has been added for the Ivory in the urine discussed with the resident physician Dictation was produced using [employer] dictation software. please excuse any grammatical, word or spelling errors. Time with Patient: Less than 30
[2024-06-20 11:02] LABS: HCT 29.7 % (37.2-46.3); MCH 28.6 pg (27.0-32.0); MCHC 30.3 g/dL (32.0-37.0); MCV 94.3 FL (80.0-97.0); NRBC Per 100 WBC 0 X 10*3/uL (0.00-0.01); Platelet Count 208 X 10*3/uL (140-440); RBC 3.15 X 10*6/uL (4.10-5.20); RDW 22.3 % (11.5-14.5); WBC 11.59 X 10*3/uL (4.50-10.00)
[2024-06-20 11:12] LABS: BUN/Creat Ratio 26.87 Ratio (12.00-20.00); Blood Urea Nitrogen 61.8 mg/dL (9.0-27.0); Glucose 100 mg/dL (70-110)
[2024-06-20 11:13] LABS: Calcium 7.8 mg/dL (8.7-10.3); Chloride 102 mmol/L (96-109); Potassium 4.2 mmol/L (3.5-5.5); Sodium 138 mmol/L (135-145)
[2024-06-20 11:59] LABS: Anisocytosis (M) 2+; Basophils # (A) 0.09 X 10*3/uL (0.00-0.10); Basophils % (A) 0.8 %; Eosinophils # (A) 0.74 X 10*3/uL (0.04-0.35); Eosinophils % (A) 6.4 %; Lymphocytes # (A) 2.25 X 10*3/uL (0.90-5.00); Lymphocytes % (A) 19.4 %; Monocytes # (A) 1.12 X 10*3/uL (0.20-1.00); Monocytes % (A) 9.7 %; Neutrophils # (A) 7.33 X 10*3/uL (1.80-7.70); Neutrophils % (A) 63.2 %
[2024-06-20] MEDS: amLODIPine 5 MG TAB PO SCH (15:17)
--- NOTE | 2024-06-20 15:49 | P.PN ---
Subjective Progress Note Date: 06/20/24 Principal diagnosis: Reason for follow-up is a urinary tract infection Patient is a 83-year-old female with a past medical history significant for diabetes mellitus hypertension hyperlipidemia heart failure with the patient did have a chronic indwelling Ordoñez catheter presenting to the hospital for evaluation not feeling well and weakness along with nausea has been diagnosed with a catheter associated UTI. Patient did have multiple antibiotic allergies prompting this consultation. On today's visit that is 06/20/2024, patient has been afebrile, patient is breathing comfortably and is currently on room air, patient denies having any significant cough no chest pain shortness of breath, patient denies nausea vomiting or diarrhea and no abdominal pain denies any new symptoms. Patient did have a CT abdominal pelvis with concern for cecal mass versus colitis, white count is 11.59, creatinine is 2.3 Objective - Vital Signs Vital signs: Vital Signs Temp 97.6 F 06/20/24 14:46 Pulse 60 06/20/24 14:46 Resp 16 06/20/24 14:46 BP 159/56 06/20/24 14:46 Pulse Ox 100 06/20/24 14:46 FiO2 Intake & Output 06/19/24 06/20/24 06/20/24 18:59 06:59 18:59 Intake Total 472 472 Output Total 2501 400 100 Balance -2028 -400 372 Weight 58.967 kg Intake: Oral 472 472 Output: Urine 2500 400 100 Stool 1 Other: Voiding Method Indwelling Catheter Indwelling Catheter Indwelling Catheter # Bowel Movements 1 - Exam GENERAL DESCRIPTION: An elderly female up in the chair in no distress RESPIRATORY SYSTEM: Unlabored breathing , decreased breath sounds at bases HEART: S1 S2 regular rate and rhythm , ABDOMEN: Soft , no tenderness EXTREMITIES: No edema feet - Labs CBC & Chem 7: 06/20/24 07:33 06/20/24 07:33 Labs: Abnormal Lab Results - Last 24 Hours (Table) 06/20/24 06/20/24 Range/Units 07:33 07:33 WBC 11.59 H (4.50-10.00) X 10*3/uL RBC 3.15 L (4.10-5.20) X 10*6/uL Hgb 9.0 L (12.0-15.0) g/dL Hct 29.7 L (37.2-46.3) % MCHC 30.3 L (32.0-37.0) g/dL RDW 22.3 H (11.5-14.5) % Immature Gran # 0.06 H (0.00-0.04) X 10*3/uL Monocytes # 1.12 H (0.20-1.00) X 10*3/uL Eosinophils # 0.74 H (0.04-0.35) X 10*3/uL Anisocytosis (manual) 2+ A BUN 61.8 H (9.0-27.0) mg/dL Creatinine 2.3 H (0.6-1.5) mg/dL Est GFR (CKD-EPI) 20 L (>=60) BUN/Creatinine Ratio 26.87 H (12.00-20.00) Ratio Calcium 7.8 L (8.7-10.3) mg/dL Microbiology - Last 24 Hours (Table) 06/17/24 17:35 Blood Culture Gram Stain - Final Blood Blood Culture - Final Group D Enterococcus Molecular ID Assessment and Plan (1) Catheter-associated urinary tract infection Current Visit: Yes Status: Acute Code(s): T83.511A - I/I REACT D/T INDWELLING URETHRAL CATHETER, INIT; N39.0 - URINARY TRACT INFECTION, SITE NOT S PECIFIED SNOMED Code(s): 748779495 (2) Allergy to multiple antibiotics Current Visit: Yes Status: Acute Code(s): Z88.1 - ALLERGY STATUS TO OTHER ANTIBIOTIC AGENTS SNOMED Code(s): 309293333 (3) VRE bacteremia Current Visit: Yes Status: Acute Code(s): R78.81 - BACTEREMIA; B95.2 - ENTEROCOCCUS THE CAUSE OF DISEASES CLASSIFIED ELSEWHERE; Z16.21 - RESISTANCE TO VANCOMYCIN SNOMED Code(s): 4370181825 Plan: 1patient presented hospital for generalized weakness not feeling well likely related to the catheter assisted UTI in this patient with a chronic indwelling catheter for urinary retention and did have significantly positive UA with elevated white count. 2patient with multiple antibiotic ALLERGIES that would limit the number of antibiotic safe to use but no documented anaphylaxis 3-patient urine has been finalized with Ivory 4blood culture has been finalized with the VRE possible GI source there was evidence of possible cecal mass versus colitis on the CT may benefit from GI ev aluation for direct visualization, blood culture has been repeated to document clearance of her bacteremia this was discussed with the resident physician Dictation was produced using [employer] dictation software. please excuse any grammatical, word or spelling errors. Time with Patient: Less than 30
--- NOTE | 2024-06-20 16:32 | P.GSCN ---
History of Present Illness Consult date: 06/21/24 History of present illness: CHIEF COMPLAINT: not feeling well reason for consult colitis versus cecal mass HISTORY OF PRESENT ILLNESS: this is a 83-year-old female who presented to the hospital with complaints of just not feeling well. She has a history of recurrent UTIs. And she had been recent antibiotics for UTI. Patient is being treated for UTI and bacteremia. She had a Ordoñez catheter changed and change in antibiotics and since then she is feeling better. Patient denies any abdominal pain. She does report some intermittent nausea. She has had no change in bowel movements. Denies any blood in her stools. Last colonoscopy was 5 years ago and reports as negative per patient. Patient does have a cardiac history of A. fib on our request. Also history of CABG, aortic valve replacement and pacemaker. Patient is nonambulatory and has a chronic indwelling Ordoñez catheter.Surgical service consulted in regards to CAT scan findings of colitis versus cecal mass. Patient denies EtOH use. PAST MEDICAL HISTORY: See below PAST SURGICAL HISTORY: appendectomy, cholecystectomy, hysterectomy, CABG, pacemaker, aortic valve replacement MEDICATIONS: See below ALLERGIES: See below SOCIAL HISTORY: No illicit drug use. REVIEW OF SYSTEMS: CONSTITUTIONAL: Denies fever or chills. HEENT: Denies blurred vision, vision changes, or eye pain. Denies hemoptysis CARDIOVASCULAR: Denies chest pain or pressure. RESPIRATORY: No shortness of breath. GASTROINTESTINAL: See HPI for pertinent findings HEMATOLOGIC: Denies bleeding disorders. GENITOURINARY: Denies any blood in urine or increased urinary frequency. SKIN: Denies pruitis. Denies rash. PHYSICAL EXAM: VITAL SIGNS: Reviewed GENERAL: Well-developed in no acute distress. HEENT: No sclera icterus. Extraocular movements grossly intact. Moist buccal mucosa. Head is atraumatic, normocephalic. No nasal drainage. ABDOMEN: Soft. Nondistended. nontender NEUROLOGIC: Alert and oriented. Cranial nerves II through XII grossly intact. LABORATORY DATA: WBC 9.9 up to 11.59 Hgb 9.0 platelets 208 sodium 1:30 potassium is 4.2 creatinine 2.3 IMAGING: Computed tomography scan abdomen and pelvis reports a right colonic/cecal wall thickening correlate for colitis versus mass. Anasarca with a small amount of ascites.moderate to large left and small moderate right pleural effusion with adjacent consolidation. Limited assessment of pancreas due to lack of contrast. Question mild induration of the peripancreatic fat would recommend correlation with pancreatic enzymes to include pancreatitis or pancreatic mass. ASSESSMENT: 1. Right colonic/Cecal wall thickening correlate for colitis versus mass noted on CAT scan. 2. Questionable mild induration of peripancreatic fat noted on CT 3. Catheter associated UTI PLAN: -Further recommendations forthcoming per surgeon regarding colonoscopy -Antibiotic management per infectious disease -continue regular diet -Check amylase and lipase thank you for this consultation Physician Real Estate Agent/Broker note has been reviewed by physician. Signing provider agrees with the documented findings, assessment, and plan of care. Attestation Patient was seen and examined at bedside. Chief complaint of feeling ill. CT of the abdomen pelvis was reviewed with finding of cecal wall thickening concerning for colitis versus mass. Patient is tolerating regular diet. Denies abdominal pain. Denies any significant changes in bowel function. She states h er last colonoscopy was about 5 years ago with cab station attendant, Dr. Alan. No significant concerning findings at that time. At this point, as the patient is asymptomatic, continue with IV antibiotics, continue diet. Patient can follow-up with GI as outpatient for colonoscopy should she be interested in this as she currently does not want to have a colonoscopy. Yazan Strong, DO Past Medical History Past Medical History: Coronary Artery Disease (CAD), Heart Failure, Diabetes Mellitus, Hyperlipidemia, Hypertension, Renal Disease Additional Past Medical History / Comment(s): pacemaker for complete heart block, AVR- pig History of Any Multi-Drug Resistant Organisms: None Reported Past Surgical History: Appendectomy, Cholecystectomy, Coronary Bypass/CABG, Hysterectomy, Pacemaker, Tonsillectomy Additional Past Surgical History / Comment(s): CABG x3 11 years Past Anesthesia/Blood Transfusion Reactions: No Reported Reaction Type of Cardiac Device: Permanent Pacemaker Device Placement Date:: 02/20/23 Past Psychological History: No Psychological Hx Reported Smoking Status: Never smoker Past Alcohol Use History: None Reported Past Drug Use History: None Reported - Past Family History Father History Unknown: Yes Family Medical History: COPD Medications and Allergies Home Medications Medication Instructions Recorded Confirmed Type Simvastatin [Zocor] 20 mg PO HS 08/22/22 06/17/24 History Ubidecarenone [Co Q-10] 30 mg PO DAILY 09/06/23 06/17/24 History calcitrioL 0.25 mcg PO SA 11/17/23 06/17/24 History Apixaban [Eliquis] 2.5 mg PO BID 02/08/24 06/17/24 History allopurinoL [Zyloprim] 100 mg PO DAILY 05/06/24 06/17/24 History Aspirin 81 mg PO DAILY 30 Days #30 tab 05/20/24 06/17/24 Rx Cholecalciferol (Vitamin D3) 50 mcg PO DAILY 06/17/24 06/17/24 History [Vitamin D3 (50 Mcg = 2000 Iu)] Nitrofurantoin Monohyd/M-Cryst 100 mg PO Q12HR 06/17/24 06/17/24 History [Macrobid] Ondansetron Odt [Zofran Odt] 8 mg PO Q8HR PRN 06/17/24 06/17/24 History Torsemide [Demadex] 20 mg PO DAILY 06/17/24 06/17/24 History amLODIPine [Norvasc] 5 mg PO DAILY 06/17/24 06/17/24 History Allergies Allergy/AdvReac Type Severity Reaction Status Date / Time cephalexin Allergy Unknown Verified 06/17/24 11:49 ciprofloxacin [From Cipro] Allergy Unknown Verified 06/17/24 11:49 codeine Allergy Unknown Verified 06/17/24 11:49 Surgical - Exam Osteopathic Statement: *. No significant issues noted on an osteopathic structural exam other than those noted in the History and Physical/Consult. Vital Signs Temp Pulse Resp BP Pulse Ox 97.5 F L 65 20 144/60 98 06/17/24 09:36 06/17/24 09:36 06/17/24 09:36 06/17/24 09:36 06/17/24 09:36 Results - Labs 06/21/24 05:27 06/21/24 05:27 Abnormal Lab Results - Last 24 Hours (Table) 06/20/24 06/20/24 Range/Units 07:33 07:33 WBC 11.59 H (4.50-10.00) X 10*3/uL RBC 3.15 L (4.10-5.20) X 10*6/uL Hgb 9.0 L (12.0-15.0) g/dL Hct 29.7 L (37.2-46.3) % MCHC 30.3 L (32.0-37.0) g/dL RDW 22.3 H (11.5-14.5) % Immature Gran # 0.06 H (0.00-0.04) X 10*3/uL Monocytes # 1.12 H (0.20-1.00) X 10*3/uL Eosinophils # 0.74 H (0.04-0.35) X 10*3/uL Anisocytosis (manual) 2+ A BUN 61.8 H (9.0-27.0) mg/dL Creatinine 2.3 H (0.6-1.5) mg/dL Est GFR (CKD-EPI) 20 L (>=60) BUN/Creatinine Ratio 26.87 H (12.00-20.00) Ratio Calcium 7.8 L (8.7-10.3) mg/dL Microbiology - Last 24 Hours (Table) 06/17/24 17:35 Blood Culture Gram Stain - Final Blood Blood Culture - Final Group D Enterococcus Molecular ID Diabetes panel 06/20/24 Range/Units 07:33 Sodium 138 (135-145) mmol/L Potassium 4.2 (3.5-5.5) mmol/L Chloride 102 (96-109) mmol/L Carbon Dioxide 25.0 (21.6-31.8) mmol/L BUN 61.8 H (9.0-27.0) mg/dL Creatinine 2.3 H (0.6-1.5) mg/dL Glucose 100 (70-110) mg/dL Calcium 7.8 L (8.7-10.3) mg/dL Calcium panel 06/20/24 Range/Units 07:33 Calcium 7.8 L (8.7-10.3) mg/dL Pituitary panel 06/20/24 Range/Units 07:33 Sodium 138 (135-145) mmol/L Potassium 4.2 (3.5-5.5) mmol/L Chloride 102 (96-109) mmol/L Carbon Dioxide 25.0 (21.6-31.8) mmol/L BUN 61.8 H (9.0-27.0) mg/dL Creatinine 2.3 H (0.6-1.5) mg/dL Glucose 100 (70-110) mg/dL Calcium 7.8 L (8.7-10.3) mg/dL Adrenal panel 06/20/24 Range/Units 07:33 Sodium 138 (135-145) mmol/L Potassium 4.2 (3.5-5.5) mmol/L Chloride 102 (96-109) mmol/L Carbon Dioxide 25.0 (21.6-31.8) mmol/L BUN 61.8 H (9.0-27.0) mg/dL Creatinine 2.3 H (0.6-1.5) mg/dL Glucose 100 (70-110) mg/dL Calcium 7.8 L (8.7-10.3) mg/dL
--- NOTE | 2024-06-20 16:47 | P.PN ---
Subjective Progress Note Date: 06/20/24 Principal diagnosis: Hospital Course: 83-year-old female with history of hypertension, dyslipidemia, CAD, diastolic CHF, prior valve replacement, CKD stage IV with chronic indwelling Ordoñez, status post pacemaker, COPD on 2 L, permanent atrial fibrillation on Eliquis presented with suprapubic pain and admitted for sepsis secondary to urinary tract infection and chronic indwelling Ordoñez catheter. Subjective: Patient seen at bedside. No acute events overnight. Patient states she is feeling better denies any abdominal pain fevers chills nausea vomiting diarrhea. Pertinent positives and negatives discussed above, a complete review of systems was preformed and all the other systems were negative. Vitals Signs Reviewed. Patient is afebrile, hemodynamically stable, slightly hypertensive satting well on room air. General: non toxic, no distress, appears at stated age, normal weight, resting comfortably in bed eating breakfast Derm: no unusual rashes/lesions, warm Head: atraumatic, normocephalic, symmetric Eyes: EOMI, no lid lag, anicteric sclera, pupils equal round reactive to light ENT: Nose and ears atraumatic Neck: No cervical lymphadenopathy, trachea midline, supple Mouth: no lip lesion, mucus membranes moist Cardiovascular: S1S2 reg, no murmur, positive dorsalis pedis pulse bilateral, no edema Lungs: Decreased air entry bilaterally, no rhonchi, no rales, no accessory muscle use Abdominal: soft, nontender to palpation, no guarding Ext: muscle strength 5 out of 5 in all 4 extremities grossly, no gross muscle atrophy, no contractures, Neuro: CN II-XI grossly intact, no gross focal neuro deficits Psych: Alert, oriented, appropriate affect Data Reviewed Today: Patient Labs: WBCs 11.59, hemoglobin 9, MCV 94.3, platelets 208. Sodium 138, potassium 4.2, chloride 102 BUN 61.8, creatinine 2.3, calcium 7.8 Imaging: CT abdomen pelvis showed right colonic thickening colitis versus mass Assessment and Plan: Sepsis secondary to urinary tract infection Chronic indwelling Ordoñez catheter Blood culture positive for Enterococcus faecium with van A/B gene detected Urine culture positive for Ivory albicans Indwelling catheter replaced yesterday -ID on board, discussed culture results 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 and oral Diflucan -Started on Flagyl 500 mg p.o. 3 times daily 0.9% NS at [facility] due to history of diastolic CHF and moderate left-sided pleural effusion Repeat blood culture pending Debility Generalized weakness Evaluated by PT -Will have home health care after discharge Normocytic anemia Monitor labs Mild hyponatremia, resolved Chronic: Gout Allopurinol 100 mg p.o. daily Hypertension Norvasc 5 mg p.o. daily Will resume torsemide 20 mg daily tomorrow Diastolic CHF CAD Aspirin 81 mg p.o. daily -Eliquis 2.5 mg p.o. twice daily Complete heart block status post pacemaker CKD stage IV F: NS 0.9% at [facility] E: Replete as needed N heart healthy A currently bedbound, requiring assistance DVT ppx: Eliquis Code Status: Full Anticipated discharge place: Pending clinical course Anticipated discharge time: Pending clinical course Patient was seen and examined by me and the resident. I agree with the subjective and objective as above. We discussed the assessment and plan as documented below: Patient reports feeling well. No complaints. Looking forward to going home. CBC and BMP significant for WBC 11.59, RBC 3.15, Hg 9, Hct 29.7, BUN 61.8, Cr 2.3, Ca 7.8. CT AP done shows questionable colitis versus mass. Sepsis secondary to Enterococcus faecium bacteremia: Likely source is urine. CT AP questionable colitis versus mass. Surgery consulted for abnormal CT results. Continue Daptomycin 350 mg IV Q48H. Flagyl 500 mg PO TID added by ID. ID on board. UTI: History of indwelling catheter (Replaced 06/18). UCx growing ivory albica ns. Fluconazole 200 mg PO QD. Debility and Generalized weakness: PT and OT on board. Patient would like to go home with her on discharge. Normocytic anemia: Likely AOCD from renal failure. Appears at baseline. No signs of active bleeding. Continue to monitor. Transfuse if Hg < 7. Gout: Allopurinol 100 mg PO QD. Hypertension: Restart Amlodipine 5 mg PO QD. Diastolic CHF: Restart Torsemide 20 mg PO QD. CAD: ASA 81 mg PO QD. Simvastatin 20 mg PO QD at home. Complete heart block status post pacemaker CKD stage IV: Cr at baseline. A-Fib: Rate controlled. Eliquis 2.5 mg PO BID. Resolved: Hyponatremia Objective - Vital Signs Vital signs: Vital Signs Temp 97.6 F 06/20/24 14:46 Pulse 60 06/20/24 14:46 Resp 16 06/20/24 14:46 BP 159/56 06/20/24 14:46 Pulse Ox 100 06/20/24 14:46 FiO2 Intake & Output 06/19/24 06/20/24 06/20/24 18:59 06:59 18:59 Intake Total 472 472 Output Total 2501 400 100 Balance -9 -400 372 Weight 58.967 kg Intake: Oral 472 472 Output: Urine 2500 400 100 Stool 1 Other: Voiding Method Indwelling Catheter Indwelling Catheter Indwelling Catheter # Bowel Movements 1 - Labs CBC & Chem 7: 06/20/24 07:33 06/20/24 07:33 Labs: Abnormal Lab Results - Last 24 Hours (Table) 06/20/24 06/20/24 Range/Units 07:33 07:33 WBC 11.59 H (4.50-10.00) X 10*3/uL RBC 3.15 L (4.10-5.20) X 10*6/uL Hgb 9.0 L (12.0-15.0) g/dL Hct 29.7 L (37.2-46.3) % MCHC 30.3 L (32.0-37.0) g/dL RDW 22.3 H (11.5-14.5) % Immature Gran # 0.06 H (0.00-0.04) X 10*3/uL Monocytes # 1.12 H (0.20-1.00) X 10*3/uL Eosinophils # 0.74 H (0.04-0.35) X 10*3/uL Anisocytosis (manual) 2+ A BUN 61.8 H (9.0-27.0) mg/dL Creatinine 2.3 H (0.6-1.5) mg/dL Est GFR (CKD-EPI) 20 L (>=60) BUN/Creatinine Ratio 26.87 H (12.00-20.00) Ratio Calcium 7.8 L (8.7-10.3) mg/dL Microbiology - Last 24 Hours (Table) 06/17/24 17:35 Blood Culture Gram Stain - Final Blood Blood Culture - Final Group D Enterococcus Molecular ID
[2024-06-20] MEDS: metroNIDAZOLE 500 MG TAB PO SCH (17:52)
[2024-06-20] MEDS: ACETAMINOPHEN TAB 325 MG TAB PO PRN (22:03)
[2024-06-21 06:22] LABS: African American GFR (CKD) 23 (>60 ml/min/1.73 sqM); Amylase 65 U/L (30-110); Anion Gap 5 mmol/L; Blood Urea Nitrogen 67 mg/dL (7-17); Carbon Dioxide 25 mmol/L (22-30); Chloride 104 mmol/L (98-107); Glucose 106 mg/dL (74-99); Non-African American GFR(CKD) 20 (>60 ml/min/1.73 sqM); Potassium 4.3 mmol/L (3.5-5.1); Sodium 134 mmol/L (137-145)
[2024-06-21 08:51] LABS: Basophils # (A) 0.07 X 10*3/uL (0.00-0.10); Basophils % (A) 0.6 %; Eosinophils # (A) 0.78 X 10*3/uL (0.04-0.35); Eosinophils % (A) 6.9 %; HCT 28.3 % (37.2-46.3); HGB 8.8 g/dL (12.0-15.0); Lymphocytes # (A) 2.32 X 10*3/uL (0.90-5.00); Lymphocytes % (A) 20.6 %; MCHC 31.1 g/dL (32.0-37.0); MCV 96.6 FL (80.0-97.0); Mean Platelet Volume 12.4 FL (9.5-12.2); Monocytes # (A) 0.98 X 10*3/uL (0.20-1.00); Monocytes % (A) 8.7 %; NRBC Per 100 WBC 0 X 10*3/uL (0.00-0.01); Neutrophils # (A) 7.06 X 10*3/uL (1.80-7.70); Neutrophils % (A) 62.8 %; Platelet Count 215 X 10*3/uL (140-440); RBC 2.93 X 10*6/uL (4.10-5.20); RDW 22.3 % (11.5-14.5); WBC 11.26 X 10*3/uL (4.50-10.00)
[2024-06-21] MEDS: TORSEMIDE 20 MG TAB PO SCH (09:18)
--- NOTE | 2024-06-21 12:57 | P.PN ---
Subjective Progress Note Date: 06/21/24 Principal diagnosis: Reason for follow-up is a urinary tract infection Patient is a 83-year-old female with a past medical history significant for diabetes mellitus hypertension hyperlipidemia heart failure with the patient did have a chronic indwelling Ordoñez catheter presenting to the hospital for evaluation not feeling well and weakness along with nausea has been diagnosed with a catheter associated UTI. Patient did have multiple antibiotic allergies prompting this consultation. On today's visit that is 06/21/2024, Patient is afebrile this morning patient denies having any chest pain shortness of breath or cough, the patient is breathing comfortably and currently on room air, patient denies any abdominal pain no diarrhea no nausea no vomiting, no urinary symptoms mention feeling better. Patient white count is 11.26, creatinine is 2.16 Objective - Vital Signs Vital signs: Vital Signs Temp 97.5 F L 06/21/24 08:00 Pulse 57 L 06/21/24 08:00 Resp 16 06/21/24 08:00 BP 156/65 06/21/24 08:00 Pulse Ox 100 06/21/24 08:00 FiO2 Intake & Output 06/20/24 06/21/24 06/21/24 18:59 06:59 18:59 Intake Total 590 240 118 Output Total 100 200 Balance 490 40 118 Weight 58.967 kg Intake: Oral 590 240 118 Output: Urine 100 200 Other: Voiding Method Indwelling Catheter Indwelling Catheter Indwelling Catheter # Bowel Movements 1 - Exam GENERAL DESCRIPTION: An elderly female up in the chair in no distress RESPIRATORY SYSTEM: Unlabored breathing , decreased breath sounds at bases HEART: S1 S2 regular rate and rhythm , ABDOMEN: Soft , no tenderness EXTREMITIES: No edema feet - Labs CBC & Chem 7: 06/21/24 05:27 06/21/24 05:27 Labs: Abnormal Lab Results - Last 24 Hours (Table) 06/20/24 06/20/24 06/21/24 Range/Units 07:33 07:33 05:27 WBC 11.59 H (4.50-10.00) X 10*3/uL RBC 3.15 L (4.10-5.20) X 10*6/uL Hgb 9.0 L (12.0-15.0) g/dL Hct 29.7 L (37.2-46.3) % MCHC 30.3 L (32.0-37.0) g/dL RDW 22.3 H (11.5-14.5) % MPV (9.5-12.2) FL Immature Gran # 0.06 H (0.00-0.04) X 10*3/uL Monocytes # 1.12 H (0.20-1.00) X 10*3/uL Eosinophils # 0.74 H (0.04-0.35) X 10*3/uL Anisocytosis (manual) 2+ A Sodium 134 L (137-145) mmol/L BUN 61.8 H 67 H (9.0-27.0) mg/dL Creatinine 2.3 H 2.16 H (0.6-1.5) mg/dL Est GFR (CKD-EPI) 20 L (>=60) BUN/Creatinine Ratio 26.87 H (12.00-20.00) Ratio Glucose 106 H (74-99) mg/dL Calcium 7.8 L 8.0 L (8.7-10.3) mg/dL 06/21/24 Range/Units 05:27 WBC 11.26 H (4.50-10.00) X 10*3/uL RBC 2.93 L (4.10-5.20) X 10*6/uL Hgb 8.8 L (12.0-15.0) g/dL Hct 28.3 L (37.2-46.3) % MCHC 31.1 L (32.0-37.0) g/dL RDW 22.3 H (11.5-14.5) % MPV 12.4 H (9.5-12.2) FL Immature Gran # 0.05 H (0.00-0.04) X 10*3/uL Monocytes # (0.20-1.00) X 10*3/uL Eosinophils # 0.78 H (0.04-0.35) X 10*3/uL Anisocytosis (manual) Sodium (137-145) mmol/L BUN (9.0-27.0) mg/dL Creatinine (0.6-1.5) mg/dL Est GFR (CKD-EPI) (>=60) BUN/Creatinine Ratio (12.00-20.00) Ratio Glucose (74-99) mg/dL Calcium (8.7-10.3) mg/dL Microbiology - Last 24 Hours (Table) 06/17/24 17:35 Blood Culture Gram Stain - Final Blood Blood Culture - Final Group D Enterococcus Molecular ID Assessment and Plan (1) Catheter-associated urinary tract infection Current Visit: Yes Status: Acute Code(s): T83.511A - I/I REACT D/T INDWELLING URETHRAL CATHETER, INIT; N39.0 - URINARY TRACT INFECTION, SITE NOT SPECIFIED SNOMED Code(s): 644227454 (2) Allergy to multiple antibiotics Current Visit: Yes Status: Acute Code(s): Z88.1 - ALLERGY STATUS TO OTHER ANTIBIOTIC AGENTS SNOMED Code(s): 974694065 (3) VRE bacteremia Current Visit: Yes Status: Acute Code(s): R78.81 - BACTEREMIA; B95.2 - ENTEROCOCCUS THE CAUSE OF DISEASES CLASSIFIED ELSEWHERE; Z16.21 - RESISTANCE TO VANCOMYCIN SNOMED Code(s): 3742522905 Plan: 1patient presented hospital for generalized weakness not feeling well likely related to the catheter assisted UTI in this patient with a chronic indwelling catheter for urinary retention and did have significantly positive UA with elevated white count. 2patient with multiple antibiotic ALLERGIES that would limit the number of antibiotic safe to use but no documented anaphylaxis 3-patient urine has been finalized with Ivory, patient currently being treated with oral Diflucan 4blood culture has been finalized with the VRE possible GI source there was evidence of possible cecal mass versus colitis on the CT may benefit from GI evaluation for direct visualization, surgery has been consulted awaiting their recommendation regarding colonoscopy we will also waiting for repeat blood cultures continue with the daptomycin and Flagyl Dictation was produced using [employer] dictation software. please excuse any grammatical, word or spelling errors.
--- NOTE | 2024-06-21 17:02 | P.PN ---
Subjective Progress Note Date: 06/21/24 Principal diagnosis: Hospital Course: 83-year-old female with history of hypertension, dyslipidemia, CAD, diastolic CHF, prior valve replacement, CKD stage IV with chronic indwelling Ordoñez, status post pacemaker, COPD on 2 L, permanent atrial fibrillation on Eliquis presented with suprapubic pain and admitted for sepsis secondary to urinary tract infection and chronic indwelling Ordoñez catheter. Subjective: Patient seen at bedside. No acute events overnight. Patient states she is feeling better denies any abdominal pain fevers chills nausea vomiting diarrhea. Pertinent positives and negatives discussed above, a complete review of systems was preformed and all the other systems were negative. Vitals Signs Reviewed. Patient is afebrile, hemodynamically stable, slightly hypertensive satting well on room air. General: non toxic, no distress, appears at stated age, normal weight, resting comfortably in bed eating breakfast Cardiovascular: S1S2 reg, no murmur, positive dorsalis pedis pulse bilateral, no edema Lungs: Equal air entry bilaterally, no rhonchi, no rales, no accessory muscle use Abdominal: soft, nontender to palpation, no guarding Psych: Alert, oriented, appropriate affect Data Reviewed Today: Pertinent Labs: WBC 11.26, RBC 2.93, hemoglobin 8.8. Sodium 134, BUN 67, creatinine 2.16, glucose 106, calcium 8. Imaging: No new imaging Assessment and Plan: Sepsis secondary to urinary tract infection Chronic indwelling Ordoñez catheter replaced 06/18 Blood culture positive for Enterococcus faecium with van A/B gene detected Urine culture positive for Ivory albicans Indwelling catheter replaced yesterday -ID on board, discussed culture results 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 and oral Diflucan -Started on Flagyl 500 mg p.o. 3 times daily 0.9% NS at [facility] due to history of diastolic CHF and moderate left-sided pleural effusion Repeat blood culture pending CT with abnormal finding, right colonic wall thickening, colitis versus mass, mild induration of peripancreatic fat Surgery consulted, recommendations forthcoming Amylase and lipase normal Debility Generalized weakness PT/OT on board -Will have home health care after discharge Normocytic anemia Monitor labs -No signs of active bleeding Transfuse if hemoglobin less than 7 Chronic: Gout Allopurinol 100 mg PO daily Hypertension Norvasc 5 mg PO daily Resumed torsemide 20 mg p.o. daily Diastolic CHF CAD Aspirin 81 mg PO daily Atrial fibrillation, rate controlled -Eliquis 2.5 mg p.o. twice daily Complete heart block status post pacemaker CKD stage IV, creatinine at baseline Hyponatremia, resolved F: NS 0.9% at [facility] E: Replete as needed N heart healthy A currently bedbound, requiring assistance DVT ppx: Eliquis Code Status: Full Anticipated discharge place: Pending clinical course Anticipated discharge time: Pending clinical course Patient was seen and examined by me and the resident. I agree with the subjective and objective as above. We discussed the assessment and plan as documented below: Patient reports feeling well. No complaints. Looking forward to going home. CBC and BMP significant for WBC 11.26, RBC 2.93, Hg 8.8, Hct 28.3, Na 134, BUN 67, Cr 2.16, Ca 8. CT AP done shows questionable colitis versus mass. Surgery has evaluated the patient and decision made not to pursue C-scope at this time. ID plans on repeating BCx. Sepsis secondary to Enterococcus faecium bacteremia: Likely source is urine. CT AP questionable colitis versus mass. Surgery consulted for abnormal CT results. Continue Daptomycin 350 mg IV Q48H. Flagyl 500 mg PO TID added by ID. ID on board. UTI: History of indwelling catheter (Replaced 06/18). UCx growing ivory albicans. Fluconazole 200 mg PO QD. Debility and Generalized weakness: PT and OT on board. Patient would like to go home with her on discharge. Normocytic anemia: Likely AOCD from renal failure. Appears at baseline. No signs of active bleeding. Continue to monitor. Transfuse if Hg < 7. Gout: Allopurinol 100 mg PO QD. Hypertension: Amlodipine 5 mg PO QD. Diastolic CHF: Torsemide 20 mg PO QD. CAD: ASA 81 mg PO QD. Simvastatin 20 mg PO QD at home. Complete heart block status post pacemaker CKD stage IV: Cr at baseline. A-Fib: Rate controlled. Eliquis 2.5 mg PO BID. Objective - Vital Signs Vital signs: Vital Signs Temp 98.0 F 06/21/24 02:55 Pulse 66 06/21/24 02:55 Resp 16 06/21/24 02:55 BP 134/63 06/21/24 02:55 Pulse Ox 99 06/21/24 02:55 FiO2 Intake & Output 06/20/24 06/21/24 06/21/24 18:59 06:59 18:59 Intake Total 590 240 Output Total 100 200 Balance 490 40 Weight 58.967 kg Intake: Oral 590 240 Output: Urine 100 200 Other: Voiding Method Indwelling Catheter Indwelling Catheter # Bowel Movements 1 - Labs CBC & Chem 7: 06/21/24 05:27 06/21/24 05:27 Labs: Abnormal Lab Results - Last 24 Hours (Table) 06/20/24 06/20/24 06/21/24 Range/Units 07:33 07:33 05:27 WBC 11.59 H (4.50-10.00) X 10*3/uL RBC 3.15 L (4.10-5.20) X 10*6/uL Hgb 9.0 L (12.0-15.0) g/dL Hct 29.7 L (37.2-46.3) % MCHC 30.3 L (32.0-37.0) g/dL RDW 22.3 H (11.5-14.5) % Immature Gran # 0.06 H (0.00-0.04) X 10*3/uL Monocytes # 1.12 H (0.20-1.00) X 10*3/uL Eosinophils # 0.74 H (0.04-0.35) X 10*3/uL Anisocytosis (manual) 2+ A Sodium 134 L (137-145) mmol/L BUN 61.8 H 67 H (9.0-27.0) mg/dL Creatinine 2.3 H 2.16 H (0.6-1.5) mg/dL Est GFR (CKD-EPI) 20 L (>=60) BUN/Creatinine Ratio 26.87 H (12.00-20.00) Ratio Glucose 106 H (74-99) mg/dL Calcium 7.8 L 8.0 L (8.7-10.3) mg/dL Microbiology - Last 24 Hours (Table) 06/17/24 17:35 Blood Culture Gram Stain - Final Blood Blood Culture - Final Group D Enterococcus Molecular ID
[2024-06-22 01:50] VITALS: RESP 16
[2024-06-22 07:44] VITALS: BP 162/55; PULSE 60; TEMP 97.7
[2024-06-22 07:53] LABS: Anisocytosis Moderate; Basophils # (A) 0.1 k/uL (0-0.2); Basophils % (A) 1 %; Eosinophils # (A) 0.7 k/uL (0-0.7); Eosinophils % (A) 7 %; HCT 29.9 % (34.0-46.0); HGB 9.2 gm/dL (11.4-16.0); Hypochromasia Marked; Lymphocytes % (A) 22 %; MCH 29.7 pg (25.0-35.0); MCHC 30.6 g/dL (31.0-37.0); Macrocytosis Slight; Mean Platelet Volume 9.2; Monocytes # (A) 0.5 k/uL (0-1.0); Monocytes % (A) 5 %; Neutrophils # (A) 5.9 k/uL (1.3-7.7); Neutrophils % (A) 63 %; Platelet Count 257 k/uL (150-450); RBC 3.08 m/uL (3.80-5.40); RDW 20.4 % (11.5-15.5); WBC 9.3 k/uL (3.8-10.6)
[2024-06-22] MEDS ORDERED: ONDANSETRON 4 MG/2 ML VIAL IVP PRN (07:59)
[2024-06-22 08:16] LABS: African American GFR (CKD) 24 (>60 ml/min/1.73 sqM); Anion Gap 5 mmol/L; Blood Urea Nitrogen 66 mg/dL (7-17); Carbon Dioxide 24 mmol/L (22-30); Chloride 105 mmol/L (98-107); Glucose 91 mg/dL (74-99); Non-African American GFR(CKD) 21 (>60 ml/min/1.73 sqM); Potassium 4.3 mmol/L (3.5-5.1); Sodium 134 mmol/L (137-145)
--- NOTE | 2024-06-22 10:11 | P.PN ---
Subjective Progress Note Date: 06/22/24 Patient seen and examined at bedside. Denies abdominal pain. Tolerating diet. Having bowel function. Objective - Vital Signs Vital signs: Vital Signs Temp 97.7 F 06/22/24 07:43 Pulse 60 06/22/24 07:43 Resp 16 06/22/24 07:43 BP 162/55 06/22/24 07:43 Pulse Ox 100 06/22/24 07:43 FiO2 Intake & Output 06/21/24 06/22/24 06/22/24 18:59 06:59 18:59 Intake Total 354 834 Output Total 800 800 Balance -446 -800 834 Intake: Oral 354 834 Output: Urine 800 800 Other: Voiding Method Indwelling Catheter Indwelling Catheter Indwelling Catheter - Constitutional General appearance: Present: cooperative - Respiratory Details: No difficulty with respiration - Gastrointestinal Gastrointestinal Comment(s): Soft, nontender, nondistended, no rebound, no guarding - Psychiatric Psychiatric: Present: appropriate affect - Labs CBC & Chem 7: 06/22/24 07:16 06/22/24 07:16 Labs: Abnormal Lab Results - Last 24 Hours (Table) 06/22/24 06/22/24 Range/Units 07:16 07:16 RBC 3.08 L (3.80-5.40) m/uL Hgb 9.2 L (11.4-16.0) gm/dL Hct 29.9 L (34.0-46.0) % MCHC 30.6 L (31.0-37.0) g/dL RDW 20.4 H (11.5-15.5) % Sodium 134 L (137-145) mmol/L BUN 66 H (7-17) mg/dL Creatinine 2.09 H (0.52-1.04) mg/dL Calcium 8.0 L (8.4-10.2) mg/dL Microbiology - Last 24 Hours (Table) 06/20/24 17:15 Blood Culture - Preliminary Blood Assessment and Plan Plan: 83-year-old female with colitis. She is tolerating diet and having bowel function. Last colonoscopy was about 5 years ago with GI service, Dr. Alan. Currently, patient is not interested in endoscopy. She can follow-up as outpatient with gastroenterology for further workup with possible colonoscopy. At this point, no plan for acute surgical intervention.
--- NOTE | 2024-06-22 13:40 | P.DS ---
Providers Date of admission: 06/19/24 09:29 Discharge Diagnosis: Sepsis secondary to urinary tract infection Chronic indwelling Ordoñez catheter Debility Generalized weakness Left pleural effusion Chronic hypoxic respiratory failure Gout Hypertension Diastolic CHF CAD Complete heart block status post pacemaker CKD stage IV Hospital Course: 83-year-old female with history of hypertension, dyslipidemia, CAD, diastolic CHF, prior valve replacement, CKD stage IV with chronic indwelling Ordoñez, status post pacemaker, COPD on 2 L, permanent atrial fibrillation on Eliquis presenting with suprapubic pain. She was also complaining of "not feeling right". She claims that she gets her Ordoñez catheter exchanged every 2 weeks, but has not gotten exchanged for a while. She did get it exchanged this morning and it made her feel a lot better. She denies any fevers or chills. She denies any chest pain, shortness of breath, abdominal pain, has some nausea, denies any vomiting, is occasionally constipated, last bowel movement this morning. She is bed ridden for the last 1-1/2 years. She currently lives with her at home, and has a director of housing and energy services who comes in every day.In the ED, temperature was 97.5, pulse 65, respiratory rate 20, blood pressure 144/60, saturating at 98% on 2 L. WBC 16.8, hemoglobin 10.2 around baseline, sodium 133, creatinine 2.51 around baseline, potassium 3.7, magnesium 1.8, troponin 0.024, urinalysis positive for moderate leukocyte esterase, respiratory viral panel negative. Lactate 0.8. EKG independently interpreted, shows ventricularly paced rhythm. Acute abdomen series shows moderate left pleural effusion. Patient admitted for sepsis secondary to urinary tract inf ection. Blood cultures and urine cultures were positive and appropriate antibiotics were started. ID was following throughout hospital stay. Patient's clinical status continued to improve she remained, she remained afebrile, and denied any complaints. CT abdomen pelvis with without contrast showed possible colitis versus mass. Surgery was consulted and saw the patient, did not recommend any interventions and follow-up on an outpatient basis as per the patient's request. Patient has been deemed medically stable and cleared for discharge. Case was discussed with case management extensively and patient will be discharged home with caregiver () as well as home health care. Case was discussed with Dr. Crowley (infectious disease) regarding PO antibiotics for discharge. The patient will remain on Diflucan and Flagyl for 1 week as well as Zyvox for 2 weeks. Patient will follow-up with PCP in 1 to 2 days, infectious disease in 2 weeks, and regular follow-up with Dr. Christensen. Pt seen and examined at bedside: Patient is acutely alert and in no acute distress and excited for discharge. Denies any complaints at this time Vital signs reviewed and stable. General: non toxic, no distress, appears at stated age, normal weight, bedbound pleasant female Cardiovascular: S1S2 reg, no murmur, positive dorsalis pedis pulse bilateral, no edema Lungs: Clear to auscultation bilaterally, no rhonchi, no rales, no accessory muscle use Abdominal: soft, nontender to palpation, no guarding Ext: muscle strength 5 out of 5 in all 4 extremities grossly, no gross muscle atrophy, no contractures, Neuro: CN II-XI grossly intact, no gross focal neuro deficits Psych: Alert, oriented, appropriate affect A total of 20 minutes were spent preparing this complex discharge summary. Patient was discharged on June 22, 2024 at 1320. Attending physician: Joey Mccormack MD Consults: 06/17/24 11:34 Consult Physician Routine Consulting Provider: Tavia Crowley Consult Reason/Comments: uti, hx of ceph and fluoro allergy Do you want consulting provider notified?: Yes 06/20/24 13:45 Consult Physician Routine Consulting Provider: Ganesh Cheung Consult Reason/Comments: abnormal CT colitis vs. mass Do you want consulting provider notified?: Yes Primary care physician: [facility] Course: Patient was seen and examined by me and the resident. I agree with the subjective and objective as above. We discussed the assessment and plan as documented below: Patient reports feeling well. No complaints. Looking forward to going home. CBC and BMP significant for RBC 3.08, Hg 9.2, Hct 29.9, Na 134, BUN 66, Cr 2.09, Ca 8. CT AP done shows questionable colitis versus mass. Surgery has evaluated the patient and decision made not to pursue C-scope at this time. Repeat BCx prelim negative so far. Plans for discharge home on 2 weeks of Linezolid and 1 week of Diflucan and Flagyl. Follow up with PCP within 1-2 days, Dr Crowley within 1 week of discharge. Patient Condition at Discharge: Stable Plan - Discharge Summary Discharge Rx Participant: No New Discharge Prescriptions: New Fluconazole [Diflucan] 200 mg PO DAILY 7 Days #7 tab metroNIDAZOLE [Flagyl] 500 mg PO TID 7 Days #21 tab Linezolid [Zyvox] 600 mg PO Q12H 14 Days #28 tab Continue Ubidecarenone [Co Q-10] 30 mg PO DAILY calcitrioL 0.25 mcg PO SA Apixaban [Eliquis] 2.5 mg PO BID allopurinoL [Zyloprim] 100 mg PO DAILY Aspirin 81 mg PO DAILY 30 Days #30 tab amLODIPine [Norvasc] 5 mg PO DAILY Ondansetron Odt [Zofran ODT] 8 mg PO Q8HR PRN PRN Reason: Nausea Nitrofurantoin Monohyd/M-Cryst [Macrobid] 100 mg PO Q12HR Torsemide [Demadex] 20 mg PO DAILY Simvastatin [Zocor] 20 mg PO HS Cholecalciferol (Vitamin D3) [Vitamin D3 (50 Mcg = 2000 Iu)] 50 mcg PO DAILY Discharge Medication List Simvastatin [Zocor] 20 mg PO HS 08/22/22 [History] Ubidecarenone [Co Q-10] 30 mg PO DAILY 09/06/23 [History] calcitrioL 0.25 mcg PO SA 11/17/23 [History] Apixaban [Eliquis] 2.5 mg PO BID 02/08/24 [History] allopurinoL [Zyloprim] 100 mg PO DAILY 05/06/24 [History] Aspirin 81 mg PO DAILY 30 Days #30 tab 05/20/24 [Rx] Cholecalciferol (Vitamin D3) [Vitamin D3 (50 Mcg = 2000 Iu)] 50 mcg PO DAILY 06/17/24 [History] Nitrofurantoin Monohyd/M-Cryst [Macrobid] 100 mg PO Q12HR 06/17/24 [History] Ondansetron Odt [Zofran ODT] 8 mg PO Q8HR PRN 06/17/24 [History] Torsemide [Demadex] 20 mg PO DAILY 06/17/24 [History] amLODIPine [Norvasc] 5 mg PO DAILY 06/17/24 [History] Fluconazole [Diflucan] 200 mg PO DAILY 7 Days #7 tab 06/22/24 [Rx] Linezolid [Zyvox] 600 mg PO Q12H 14 Days #28 tab 06/22/24 [Rx] metroNIDAZOLE [Flagyl] 500 mg PO TID 7 Days #21 tab 06/22/24 [Rx] Follow up Appointment(s)/Referral(s): Musa Feliciano MD [Primary Care Provider] - 1-2 days Tacho Tinajero MD [STAFF PHYSICIAN] - As Needed [facility] [NON-STAFF] - 1 Week Tavia Crowley MD [STAFF PHYSICIAN] - 2 Weeks Discharge Disposition: HOME WITH HOME HEALTH SERVICES
--- NOTE | 2024-06-23 13:25 | P.PN ---
Subjective Progress Note Date: 06/22/24 Principal diagnosis: Reason for follow-up is a urinary tract infection Patient is a 83-year-old female with a past medical history significant for diabetes mellitus hypertension hyperlipidemia heart failure with the patient did have a chronic indwelling Ordoñez catheter presenting to the hospital for evaluation not feeling well and weakness along with nausea has been diagnosed with a catheter associated UTI. Patient did have multiple antibiotic allergies prompting this consultation. On today's visit that is 06/22/2024,the patient denies any fever or any chills, patient is breathing comfortably on room air, the patient denies chest pain shortness of breath and no significant cough, patient denies abdominal pain, no nausea vomiting or diarrhea. Feeling better no new symptoms. The patient white count normalized to 9.3, creatinine is 2.09 blood culture repeat has been negative so far Objective - Vital Signs Vital signs: Vital Signs Temp 97.7 F 06/22/24 07:43 Pulse 60 06/22/24 07:43 Resp 16 06/22/24 07:43 BP 162/55 06/22/24 07:43 Pulse Ox 100 06/22/24 07:43 FiO2 Intake & Output 06/21/24 06/22/24 06/22/24 18:59 06:59 18:59 Intake Total 354 Output Total 800 800 Balance -446 -800 Intake: Oral 354 Output: Urine 800 800 Other: Voiding Method Indwelling Catheter Indwelling Catheter - Exam GENERAL DESCRIPTION: An elderly female up in the chair in no distress RESPIRATORY SYSTEM: Unlabored breathing , decreased breath sounds at bases HEART: S1 S2 regular rate and rhythm , ABDOMEN: Soft , no tenderness EXTREMITIES: No edema feet - Labs CBC & Chem 7: 06/22/24 07:16 06/22/24 07:16 Labs: Abnormal Lab Results - Last 24 Hours (Table) 06/21/24 06/22/24 Range/Units 05:27 07:16 WBC 11.26 H (4.50-10.00) X 10*3/uL RBC 2.93 L 3.08 L (4.10-5.20) X 10*6/uL Hgb 8.8 L 9.2 L (12.0-15.0) g/dL Hct 28.3 L 29.9 L (37.2-46.3) % MCHC 31.1 L 30.6 L (32.0-37.0) g/dL RDW 22.3 H 20.4 H (11.5-14.5) % MPV 12.4 H (9.5-12.2) FL Immature Gran # 0.05 H (0.00-0.04) X 10*3/uL Eosinophils # 0.78 H (0.04-0.35) X 10*3/uL Microbiology - Last 24 Hours (Table) 06/20/24 17:15 Blood Culture - Preliminary Blood Assessment and Plan (1) Catheter-associated urinary tract infection Status: Acute Code(s): T83.511A - I/I REACT D/T INDWELLING URETHRAL CATHETER, INIT; N39.0 - URINARY TRACT INFECTION, SITE NOT SPECIFIED SNOMED Code(s): 245109187 (2) Allergy to multiple antibiotics Status: Acute Code(s): Z88.1 - ALLERGY STATUS TO OTHER ANTIBIOTIC AGENTS SNOMED Code(s): 152408737 (3) VRE bacteremia Status: Acute Code(s): R78.81 - BACTEREMIA; B95.2 - ENTEROCOCCUS THE CAUSE OF DISEASES CLASSIFIED ELSEWHERE; Z16.21 - RESISTANCE TO VANCOMYCIN SNOMED Code(s): 0227146843 Plan: 1patient presented hospital for generalized weakness not feeling well likely related to the catheter assisted UTI in this patient with a chronic indwelling catheter for urinary retention and did have significantly positive UA with elevated white count. 2patient with multiple antibiotic ALLERGIES that would limit the number of antibiotic safe to use but no documented anaphylaxis 3-patient urine has been finalized with [place], patient advised a 7-day course of oral Diflucan 4blood culture has been finalized with the VRE possible GI source there was evidence of possible cecal mass versus colitis on the CT patient has been seen by general surgery no plan for colonoscopy and the patient has been cleared for discharge she will finish therapy with oral Zyvox to finish 2-week course of along with Flagyl and close outpatient follow-up Dictation was produced using [employer] dictation software. please excuse any grammatical, word or spelling errors. Time with Patient: Less than 30
== END 2024-06-22 14:18 | disposition home health service (06) | DRG 698 ==
LOC: EC 09:34 → 6NMEDSUR 11:34 → OBSVTOIN 06-19 09:29
PROVIDERS: ADMIT Student in an Organized Health Care Education/Training Program; ATTEND Student in an Organized Health Care Education/Training Program
DX: T83.511A Infection and inflammatory reaction due to indwelling urethral catheter, initial encounter (principal); A41.81 Sepsis due to Enterococcus; I13.0 Hypertensive heart and chronic kidney disease with heart failure and stage 1 through stage 4 chronic kidney disease, or unspecified chronic kidney disease; J96.11 Chronic respiratory failure with hypoxia; J91.8 Pleural effusion in other conditions classified elsewhere; E87.1 Hypo-osmolality and hyponatremia; I48.21 Permanent atrial fibrillation; N18.4 Chronic kidney disease, stage 4 (severe); I50.32 Chronic diastolic (congestive) heart failure; B37.49 Other urogenital candidiasis; Z16.21 Resistance to vancomycin; J44.9 Chronic obstructive pulmonary disease, unspecified; E11.22 Type 2 diabetes mellitus with diabetic chronic kidney disease; D63.1 Anemia in chronic kidney disease; R54 Age-related physical debility; Z95.3 Presence of xenogenic heart valve; R33.9 Retention of urine, unspecified; I25.10 Atherosclerotic heart disease of native coronary artery without angina pectoris; E78.5 Hyperlipidemia, unspecified; M19.012 Primary osteoarthritis, left shoulder; M19.011 Primary osteoarthritis, right shoulder; K52.9 Noninfective gastroenteritis and colitis, unspecified; Y73.1 Therapeutic (nonsurgical) and rehabilitative gastroenterology and urology devices associated with adverse incidents; Z79.01 Long term (current) use of anticoagulants; Z79.82 Long term (current) use of aspirin; Z79.899 Other long term (current) drug therapy; Z88.1 Allergy status to other antibiotic agents; Z88.5 Allergy status to narcotic agent; Z74.01 Bed confinement status; Z95.1 Presence of aortocoronary bypass graft; Z95.0 Presence of cardiac pacemaker; Z87.440 Personal history of urinary (tract) infections; Z11.52 Encounter for screening for COVID-19
CPT/HCPCS: 36415; 74022; 74176; 80048; 80053; 81001; 82150; 83605; 83690; 83735; 84443; 84484; 85025; 85610; 85730; 87040; 87077; 87086; 87186; 87636; 93005; 96365; 96375; 99285

== ENCOUNTER 2024-07-06 23:06 | Inpatient (IN) | payer MEDICARE ==
[2024-07-07 00:05] LABS: Anisocytosis Moderate; Basophils # (A) 0.1 k/uL (0-0.2); Basophils % (A) 1 %; Eosinophils # (A) 0.5 k/uL (0-0.7); Eosinophils % (A) 6 %; HCT 28.6 % (34.0-46.0); HGB 8.8 gm/dL (11.4-16.0); Hypochromasia Marked; Lymphocytes # (A) 1.1 k/uL (1.0-4.8); Lymphocytes % (A) 14 %; MCH 30.3 pg (25.0-35.0); MCHC 30.9 g/dL (31.0-37.0); MCV 98.1 fL (80.0-100.0); Macrocytosis Slight; Mean Platelet Volume 8.4; Monocytes # (A) 0.7 k/uL (0-1.0); Monocytes % (A) 10 %; Neutrophils # (A) 5.1 k/uL (1.3-7.7); Neutrophils % (A) 68 %; Platelet Count 284 k/uL (150-450); RBC 2.91 m/uL (3.80-5.40); RDW 20.3 % (11.5-15.5); WBC 7.6 k/uL (3.8-10.6)
[2024-07-07 00:20] LABS: ALT 12 U/L (4-34); AST 26 U/L (14-36); African American GFR (CKD) 17 (>60 ml/min/1.73 sqM); Albumin 3.2 g/dL (3.5-5.0); Alkaline Phosphatase 183 U/L (38-126); Anion Gap 9 mmol/L; Blood Urea Nitrogen 48 mg/dL (7-17); Calcium 8.7 mg/dL (8.4-10.2); Carbon Dioxide 25 mmol/L (22-30); Chloride 105 mmol/L (98-107); Glucose 167 mg/dL (74-99); Non-African American GFR(CKD) 15 (>60 ml/min/1.73 sqM); Potassium 4.2 mmol/L (3.5-5.1); Sodium 139 mmol/L (137-145); Total Bilirubin 0.3 mg/dL (0.2-1.3); Total Protein 6.1 g/dL (6.3-8.2)
[2024-07-07 00:28] LABS: NT-Pro-B-Type Natriuretic Pept 7770 pg/mL
[2024-07-07 00:33] LABS: INR 0.9 (<1.2); Partial Thromboplastin Time 27.1 sec (22.0-30.0); Prothrombin Time 10.4 sec (10.0-12.5)
--- NOTE | 2024-07-07 01:48 | ED ---
SOB HPI - General Chief Complaint: Shortness of Breath Stated Complaint: VALENTÍN Time Seen by Provider: 07/06/24 23:10 Source: patient, EMS Mode of arrival: EMS Limitations: no limitations - History of Present Illness Initial Comments: 83-year-old female with past medical history of congestive heart failure on 2 L home O2 who presents to the emergency department reporting shortness of breath. States patient was recently hospitalized for similar. She has been following with wound care. On Monday she had her lower extremity bandages taken off and patient had minimal swelling. Since Monday she has had increased lower extremity swelling and more difficulty breathing. She denies fevers or chills. Does admit to a cough. Patient had home care come visit her tonight and was concerned about her work of breathing and therefore called an ambulance to bring her to the hospital. She did have a thoracentesis with 1 L fluid removal during last hospitalization. Denies chest pain. No other alleviating, precipitating modifying factors - Related Data Home Medications Medication Instructions Recorded Confirmed Simvastatin [Zocor] 20 mg PO HS 08/22/22 07/12/24 Ubidecarenone [Co Q-10] 30 mg PO DAILY 09/06/23 07/12/24 calcitrioL 0.25 mcg PO SA 11/17/23 07/12/24 Apixaban [Eliquis] 2.5 mg PO BID 02/08/24 07/12/24 allopurinoL [Zyloprim] 100 mg PO DAILY 05/06/24 07/12/24 Cholecalciferol (Vitamin D3) 50 mcg PO DAILY 06/17/24 07/12/24 [Vitamin D3 (50 Mcg = 2000 Iu)] Ondansetron Odt [Zofran ODT] 8 mg PO Q8HR PRN 06/17/24 07/12/24 Previous Rx's Medication Instructions Recorded Aspirin 81 mg PO DAILY 30 Days #30 tab 05/20/24 Furosemide [Lasix] 40 mg PO DAILY #60 tab 07/09/24 Spironolactone [Aldactone] 12.5 mg PO DAILY #60 tab 07/09/24 amLODIPine [Norvasc] 7.5 mg PO DAILY #90 tab 07/09/24 Allergies Allergy/AdvReac Type Severity Reaction Status Date / Time cephalexin Allergy Unknown Verified 07/12/24 14:03 ciprofloxacin [From Cipro] Allergy Unknown Verified 07/12/24 14:03 codeine Allergy Unknown Verified 07/12/24 14:03 Review of Systems ROS Statement: Those systems with pertinent positive or pertinent negative responses have been documented in the HPI. ROS Other: All systems not noted in ROS Statement are negative. Past Medical History Past Medical History: Coronary Artery Disease (CAD), Heart Failure, Diabetes Mellitus, Hyperlipidemia, Hypertension, Renal Disease Additional Past Medical History / Comment(s): pacemaker for complete heart blo ck, AVR- pig History of Any Multi-Drug Resistant Organisms: None Reported Past Surgical History: Appendectomy, Cholecystectomy, Coronary Bypass/CABG, Hysterectomy, Pacemaker, Tonsillectomy Additional Past Surgical History / Comment(s): CABG x3 11 years Past Anesthesia/Blood Transfusion Reactions: No Reported Reaction Type of Cardiac Device: Permanent Pacemaker Device Placement Date:: 02/20/23 Past Psychological History: No Psychological Hx Reported Smoking Status: Never smoker Past Alcohol Use History: None Reported Past Drug Use History: None Reported - Past Family History Father History Unknown: Yes Family Medical History: COPD General Exam Limitations: no limitations General appearance: alert, in no apparent distress Head exam: Present: atraumatic, normocephalic, normal inspection Eye exam: Present: normal appearance, PERRL, EOMI. Absent: scleral icterus, conjunctival injection, periorbital swelling ENT exam: Present: normal exam, mucous membranes moist Neck exam: Present: normal inspection. Absent: tenderness, meningismus, lymphadenopathy Respiratory exam: Present: decreased breath sounds (On the left side). Absent: respiratory distress, wheezes, rales, rhonchi, stridor Cardiovascular Exam: Present: regular rate, normal rhythm, normal heart sounds. Absent: systolic murmur, diastolic murmur, rubs, gallop, clicks GI/Abdominal exam: Present: soft, normal bowel sounds. Absent: distended, tenderness, guarding, rebound, rigid Extremities exam: Present: full ROM, normal capillary refill, pedal edema. Absent: tenderness, joint swelling, calf tenderness Back exam: Present: normal inspection Neurological exam: Present: alert, oriented X3, CN II-XII intact Psychiatric exam: Present: normal affect, normal mood Skin exam: Present: warm, dry, intact, normal color. Absent: rash Course Vital Signs 07/06/24 07/07/24 07/07/24 23:09 00:53 02:55 Temperature Pulse Rate 63 59 L 60 Respiratory 20 20 20 Rate Blood Pressure 156/70 151/62 146/61 O2 Sat by Pulse 100 100 100 Oximetry 07/07/24 07/07/24 07/07/24 04:20 05:47 06:00 Temperature Pulse Rate 60 60 61 Respiratory 18 20 25 H Rate Blood Pressure 134/56 128/59 128/59 O2 Sat by Pulse 100 100 100 Oximetry 07/07/24 07/07/24 07/07/24 07:00 08:00 08:05 Temperature Pulse Rate 60 61 Respiratory 20 20 Rate Blood Pressure 145/63 125/62 O2 Sat by Pulse 100 99 96 Oximetry 07/07/24 07/07/24 07/07/24 08:52 09:00 10:00 Temperature Pulse Rate 60 60 59 L Respiratory 20 18 20 Rate Blood Pressure 131/57 131/57 144/59 O2 Sat by Pulse 96 Oximetry 07/07/24 07/07/24 07/07/24 11:00 12:00 13:00 Temperature 98.1 F 98 F Pulse Rate 60 61 60 Respiratory 18 18 22 Rate Blood Pressure 144/62 138/64 126/90 O2 Sat by Pulse 100 Oximetry 07/07/24 15:54 Temperature 98 F Pulse Rate 59 L Respiratory 18 Rate Blood Pressure 142/74 O2 Sat by Pulse 100 Oximetry Medical Decision Making - Medical Decision Making Was pt. sent in by a medical professional or institution (Dr. PA, POTATO INSPECTOR, urgent care, hospital, or skilled nursing...) When possible be specific @ -No Did you speak to anyone other than the patient for history (EMS, parent, family, police, friend...)? What history was obtained from this source @ -Spoke with EMS for history Did you review nursing and triage notes (agree or disagree)? Why? @ -I reviewed and agree with nursing and triage notes Were old charts reviewed (outside hosp., previous admission, EMS record, old EKG, old radiological studies, urgent care reports/EKG's, skilled nursing records)? Report findings @ -I reviewed discharge note from May when patient was hospitalized for similar Differential Diagnosis (chest pain, altered mental status, abdominal pain women, abdominal pain men, vaginal bleeding, weakness, fever, dyspnea, syncope, headache, dizziness, GI bleed, back pain, seizure, CVA, palpatations, mental health, musculoskeletal)? @ -Differential Dyspnea: Coronary syndrome, arrhythmia, tamponade, asthma, COPD, pulmonary embolism, pneumonia, pneumothorax, pulmonary effusion, anaphylaxis, diabetic ketoacidosis, flailed chest, pulmonary contusion, diaphragmatic rupture, anemia, neuromuscular, this is not meant to be an all-inclusive list. EKG interpreted by me (3pts min.). @ -Yes and demonstrates electronic ventricular pacemaker with a rate of 62. QRS 165. QTc of 504. Pacemaker captures appropriately X-rays interpreted by me (1pt min.). @ -Yes and demonstrates left-sided pleural effusion CT interpreted by me (1pt min.). @ -None done U/S interpreted by me (1pt. min.). @ -None done What testing was considered but not performed or refused? (CT, X-rays, U/S, labs)? Why? @ -None What meds were considered but not given or refused? Why? @ -None Did you discuss the management of the patient with other professionals (pro fessionals i.e. , PA, POTATO INSPECTOR, lab, RT, psych nurse, social services analyst, passenger booking clerk, teacher, chief revenue officer, disability case manager)? Give summary @ -Spoke with Dr. Garcia who will admit the patient Was smoking cessation discussed for >3mins.? @ -No Was critical care preformed (if so, how long)? @ -No Were there social determinants of health that impacted care today? How? (Homelessness, low income, unemployed, alcoholism, drug addiction, transportation, low edu. Level, literacy, decrease access to med. care, senior living, rehab)? @ -No Was there de-escalation of care discussed even if they declined (Discuss DNR or withdrawal of care, Hospice)? DNR status @ -No What co-morbidities impacted this encounter? (DM, HTN, Smoking, COPD, CAD, Cancer, CVA, ARF, Chemo, Hep., AIDS, mental health diagnosis, sleep apnea, mor bid obesity)? @ -CHF Was patient admitted / discharged? Hospital course, mention meds given and rou te, prescriptions, significant lab abnormalities, going to OR and other pertinent info. @ -Upon arrival patient seen and evaluated in room 10. Thorough history and physical exam was performed. Patient placed on continuous pulse ox and cardiac monitoring. Laboratory studies are conducted. Chest x-ray was performed which demonstrates left-sided pleural effusion. Did recommend admission for possible thoracentesis and diuresis. Patient was agreeable to this. Spoke with Dr. Vasquez for admission Undiagnosed new problem with uncertain prognosis? @ -No Drug Therapy requiring intensive monitoring for toxicity (Heparin, Nitro, Insulin, Cardizem)? @ -No Were any procedures done? @ -No Diagnosis/symptom? @ -Acute respiratory insufficiency, acute exacerbation of CHF, left-sided pleural effusion Acute, or Chronic, or Acute on Chronic? @ -Acute on chronic Uncomplicated (without systemic symptoms) or Complicated (systemic symptoms)? @ -Complicated Side effects of treatment? @ -No Exacerbation, Progression, or Severe Exacerbation? @ -No Poses a threat to life or bodily function? How? (Chest pain, USA, IA, pneumonia, PE, COPD, DKA, ARF, appy, cholecystitis, CVA, Diverticulitis, Homicidal, Suicidal, threat to staff... and all critical care pts) @ -Yes as patient has increased work of breathing - Lab Data Result diagrams: 07/09/24 05:21 07/09/24 05:21 Lab Results 07/06/24 07/06/24 07/06/24 Range/Units 23:21 23:21 23:21 WBC 7.6 (3.8-10.6) k/uL RBC 2.91 L (3.80-5.40) m/uL Hgb 8.8 L (11.4-16.0) gm/dL Hct 28.6 L (34.0-46.0) % MCV 98.1 (80.0-100.0) fL MCH 30.3 (25.0-35.0) pg MCHC 30.9 L (31.0-37.0) g/dL RDW 20.3 H (11.5-15.5) % Plt Count 284 (150-450) k/uL MPV 8.4 Neutrophils % 68 % Lymphocytes % 14 % Monocytes % 10 % Eosinophils % 6 % Basophils % 1 % Neutrophils # 5.1 (1.3-7.7) k/uL Lymphocytes # 1.1 (1.0-4.8) k/uL Monocytes # 0.7 (0-1.0) k/uL Eosinophils # 0.5 (0-0.7) k/uL Basophils # 0.1 (0-0.2) k/uL Hypochromasia Marked Anisocytosis Moderate Macrocytosis Slight PT 10.4 (10.0-12.5) sec INR 0.9 (<1.2) APTT 27.1 (22.0-30.0) sec Sodium 139 (137-145) mmol/L Potassium 4.2 (3.5-5.1) mmol/L Chloride 105 (98-107) mmol/L Carbon Dioxide 25 (22-30) mmol/L Anion Gap 9 mmol/L BUN 48 H (7-17) mg/dL Creatinine 2.77 H (0.52-1.04) mg/dL Est GFR (CKD-EPI)AfAm 17 (>60 ml/min/1.73 sqM) Est GFR (CKD-EPI)NonAf 15 (>60 ml/min/1.73 sqM) Glucose 167 H (74-99) mg/dL Plasma Lactic Acid [place] (0.7-2.0) mmol/L Calcium 8.7 (8.4-10.2) mg/dL Total Bilirubin 0.3 (0.2-1.3) mg/dL AST 26 (14-36) U/L ALT 12 (4-34) U/L Alkaline Phosphatase 183 H (38-126) U/L Troponin I (0.000-0.034) ng/mL NT-Pro-B Natriuret Pep 7770 pg/mL Total Protein 6.1 L (6.3-8.2) g/dL Albumin 3.2 L (3.5-5.0) g/dL 07/06/24 07/06/24 Range/Units 23:21 23:21 WBC (3.8-10.6) k/uL RBC (3.80-5.40) m/uL Hgb (11.4-16.0) gm/dL Hct (34.0-46.0) % MCV (80.0-100.0) fL MCH (25.0-35.0) pg MCHC (31.0-37.0) g/dL RDW (11.5-15.5) % Plt Count (150-450) k/uL MPV Neutrophils % % Lymphocytes % % Monocytes % % Eosinophils % % Basophils % % Neutrophils # (1.3-7.7) k/uL Lymphocytes # (1.0-4.8) k/uL Monocytes # (0-1.0) k/uL Eosinophils # (0-0.7) k/uL Basophils # (0-0.2) k/uL Hypochromasia Anisocytosis Macrocytosis PT (10.0-12.5) sec INR (<1.2) APTT (22.0-30.0) sec Sodium (137-145) mmol/L Potassium (3.5-5.1) mmol/L Chloride (98-107) mmol/L Carbon Dioxide (22-30) mmol/L Anion Gap mmol/L BUN (7-17) mg/dL Creatinine (0.52-1.04) mg/dL Est GFR (CKD-EPI)AfAm (>60 ml/min/1.73 sqM) Est GFR (CKD-EPI)NonAf (>60 ml/min/1.73 sqM) Glucose (74-99) mg/dL Plasma Lactic Acid [place] 1.5 (0.7-2.0) mmol/L Calcium (8.4-10.2) mg/dL Total Bilirubin (0.2-1.3) mg/dL AST (14-36) U/L ALT (4-34) U/L Alkaline Phosphatase (38-126) U/L Troponin I 0.015 (0.000-0.034) ng/mL NT-Pro-B Natriuret Pep pg/mL Total Protein (6.3-8.2) g/dL Albumin (3.5-5.0) g/dL Disposition Clinical Impression: Acute pulmonary edema, CHF exacerbation, Pleural effusion Disposition: ADMITTED IP TO THIS [facility] Condition: Stable Is patient prescribed a controlled substance at d/c from ED?: No Time of Disposition: 01:47 Decision to Admit Reason: Admit from EC Decision Date: 07/07/24 Decision Time: 01:48
[2024-07-07] MEDS ORDERED: NALOXONE 0.4 MG/ML 1 ML VIAL IV PRN (01:58)
[2024-07-07] MEDS: FUROSEMIDE 10 MG/ML 10 ML VIAL IV STA (02:58)
[2024-07-07] MEDS: ONDANSETRON 4 MG/2 ML VIAL IVP STA (02:58)
--- NOTE | 2024-07-07 03:02 | P.HPIM ---
History of Present Illness H&P Date: 07/07/24 Chief Complaint: SOB Patient is a 83-year-old female with diastolic heart, hypertension, CAD, prior valve replacement, CKD stage IV, status post pacemaker, COPD on home 2 L, atrial fibrillation on Eliquis presenting with shortness of breath. Patient states she felt short of breath 4 days ago. She said the dyspnea is made worse when lying down and awakens her in the middle of the night. She says she has difficulty maintaining conversation when she is speaking because she ends up being short of breath. She admits to bilateral lower extremity edema and bilateral hand edema that has progressively gotten worse over the past week. Patient also admits to generalized weakness. Patient denies fever, chills, headache, dizziness, chest pain, cough, nausea, vomiting, abdominal pain. or GI bleeding Review of systems: Pertinent positives and negatives as discussed in HPI, a complete review of systems was performed and all other systems are negative. Physical examination: Vitals: NE 59, RR 20, 151/62, O2 sat 100% on 4 L nasal cannula General: In acute distress, appears at stated age, normal weight, wheelchair- bound Derm: no unusual rashes/lesions, warm Head: atraumatic, normocephalic, symmetric Eyes: EOMI, anicteric sclera, pupils equal round reactive to light ENT: Nose and ears atraumatic Mouth: no lip lesion, mucus membranes moist Cardiovascular: S1S2 reg, no murmur, positive dorsalis pedis pulse bilateral, bilateral lower extremity 3+ edema, bilateral hand edema Lungs: Speakingrelated dyspnea no rhonchi, bilateral coarse rales, bilateral decreased breath sounds, no accessory muscle use Abdominal: soft, nontender to palpation, no guarding Ext: muscle strength 5 out of 5 in all 4 extremities grossly, no gross muscle atrophy, Neuro: CN II-XI grossly intact, no gross focal neuro deficits Psych: Alert, oriented to person, place, time Assessment/Plan: Patient is a 83-year-old female with a diastolic heart, hypertension, CAD, prior valve replacement, CKD stage IV, status post pacemaker, COPD on 2 L, atrial fibrillation on Eliquis presenting with shortness of breath. ED documentation reviewed and case discussed with ED provider. Discussed with patient and . The patient is admitted with an anticipated greater than 2 midnight stay for evaluation of acute on chronic diastolic heart failure exacerbation #. Acute on chronic diastolic heart failure exacerbation Patient admits to dyspnea, orthopnea, PND Patient with bilateral upper extremity and lower extremity edema Course rales, conversational dyspnea on physical exam proBNP 7770, lactic acid 1.5 wnl Troponin negative at 0.015, continue to trend CXR independently interpreted showed left-sided pleural effusion Order EKG Order echocardiogram Placed on IV Lasix 40 mg twice daily On O2 4 L nasal cannula Heart healthy diet Strict intake/output Fluid restrict 1500 mL Daily weights Cardiac monitoring Cardiology consulted #. Chronic hypoxic respiratory failure #. Left-sided pleural effusion CXR independently interpreted showed left-sided pleural effusion Continue with Lasix 40 mg IV twice daily Pulmonology consulted continue with supplemental oxygen as needed, baseline on 2 L at home # CKD (stage IV) BUN 48, creatinine 2.77 (around baseline) Continue with Lasix 40 mg IV twice daily Correct electrolytes as needed Monitor follow-up CMP #. CAD #. Hypertension Continue with antihypertensive medication once reconciled Continue aspirin 81 mg p.o. daily Continue simvastatin 20 mg p.o. at bedtime #. Chronic A-fib on Eliquis INR 0.9 Continue with Eliquis 2.5 mg p.o. twice daily Cardiac monitoring #. Normocytic anemia Hgb 8.8, MCV 98.1 No signs of active bleeding Most likely due to chronic disease Monitor CBC #. Type 2 diabetes Insulin SQ sliding scale Continue to monitor glucose #. COPD not in exacerbation (on home 2L nasal cannula) Denies cough with sputum production O2 sat 100% on 4 L nasal cannula Pulmonology consulted F: N/A E: replete electrolytes as needed N: heart healthy diet A: Wheelchair-bound DVT prophylaxis: Eliquis 2.5 mg PO BID CODE STATUS: Full code Past Medical History Past Medical History: Coronary Artery Disease (CAD), Heart Failure, Diabetes Mellitus, Hyperlipidemia, Hypertension, Renal Disease Additional Past Medical History / Comment(s): pacemaker for complete heart block, AVR- pig History of Any Multi-Drug Resistant Organisms: None Reported Past Surgical History: Appendectomy, Cholecystectomy, Coronary Bypass/CABG, Hysterectomy, Pacemaker, Tonsillectomy Additional Past Surgical History / Comment(s): CABG x3 11 years Past Anesthesia/Blood Transfusion Reactions: No Reported Reaction Type of Cardiac Device: Permanent Pacemaker Device Placement Date:: 02/20/23 Past Psychological History: No Psychological Hx Reported Smoking Status: Never smoker Past Alcohol Use History: None Reported Past Drug Use History: None Reported - Past Family History Father History Unknown: Yes Family Medical History: COPD Medications and Allergies Home Medications Medication Instructions Recorded Confirmed Type Simvastatin [Zocor] 20 mg PO HS 08/22/22 06/17/24 History Ubidecarenone [Co Q-10] 30 mg PO DAILY 09/06/23 06/17/24 History calcitrioL 0.25 mcg PO SA 11/17/23 06/17/24 History Apixaban [Eliquis] 2.5 mg PO BID 02/08/24 06/17/24 History allopurinoL [Zyloprim] 100 mg PO DAILY 05/06/24 06/17/24 History Aspirin 81 mg PO DAILY 30 Days #30 tab 05/20/24 06/17/24 Rx Cholecalciferol (Vitamin D3) 50 mcg PO DAILY 06/17/24 06/17/24 History [Vitamin D3 (50 Mcg = 2000 Iu)] Nitrofurantoin Monohyd/M-Cryst 100 mg PO Q12HR 06/17/24 06/17/24 History [Macrobid] Ondansetron Odt [Zofran ODT] 8 mg PO Q8HR PRN 06/17/24 06/17/24 History Torsemide [Demadex] 20 mg PO DAILY 06/17/24 06/17/24 History amLODIPine [Norvasc] 5 mg PO DAILY 06/17/24 06/17/24 History Fluconazole [Diflucan] 200 mg PO DAILY 7 Days #7 tab 06/22/24 Rx Linezolid [Zyvox] 600 mg PO Q12H 14 Days #28 tab 06/22/24 Rx metroNIDAZOLE [Flagyl] 500 mg PO TID 7 Days #21 tab 06/22/24 Rx Allergies Allergy/AdvReac Type Severity Reaction Status Date / Time cephalexin Allergy Unknown Verified 07/06/24 23:13 ciprofloxacin [From Cipro] Allergy Unknown Verified 07/06/24 23:13 codeine Allergy Unknown Verified 07/06/24 23:13 Physical Exam Vitals: Vital Signs Pulse Resp BP Pulse Ox 07/07/24 00:53 59 L 20 151/62 100 07/06/24 23:09 63 20 156/70 100 Intake and Output 07/06/24 07/06/24 07/07/24 14:59 22:59 06:59 Other: Weight 58.513 kg Results CBC & Chem 7: 07/06/24 23:21 07/06/24 23:21 Labs: Abnormal Lab Results - Last 24 Hours (Table) 07/06/24 07/06/24 Range/Units 23:21 23:21 RBC 2.91 L (3.80-5.40) m/uL Hgb 8.8 L (11.4-16.0) gm/dL Hct 28.6 L (34.0-46.0) % MCHC 30.9 L (31.0-37.0) g/dL RDW 20.3 H (11.5-15.5) % BUN 48 H (7-17) mg/dL Creatinine 2.77 H (0.52-1.04) mg/dL Glucose 167 H (74-99) mg/dL Alkaline Phosphatase 183 H (38-126) U/L Total Protein 6.1 L (6.3-8.2) g/dL Albumin 3.2 L (3.5-5.0) g/dL Assessment and Plan Assessment: I have seen and evaluated the patient today. I Discussed the case with the resident and agree with the resident's findings I edited the assessment and plan as necessary as documented in the resident's note.
[2024-07-07] MEDS ORDERED: DEXTROSE 50% SYRINGE 50 ML IVP PRN ×2 (04:27)
--- NOTE | 2024-07-07 05:11 | XR ---
EXAM: XR Chest, 2 Views CLINICAL HISTORY: difficulty breathing TECHNIQUE: Frontal and lateral views of the chest. COMPARISON: 05/30/2024 FINDINGS: Status post sternotomy. Left subclavian dual-chamber pacemaker. Heart is enlarged. No CHF. Redemonstrated large left pleural effusion with associated atelectasis. No pneumothorax. Degenerative changes of the thoracic spine and shoulders. Right upper quadrant surgical clips. IMPRESSION: No significant change. Cardiomegaly. No significant change in size of a large left pleural effusion with compressive atelectasis.
[2024-07-07 05:58] LABS: Glucose,Whole Blood 110 mg/dL (70-110)
[2024-07-07] MEDS: INSULIN ASPART (NovoLOG) 100 UNIT/ML VIAL SQ SCH (07:16)
[2024-07-07] MEDS: FUROSEMIDE 10 MG/ML 4 ML VIAL IV SCH (08:51)
[2024-07-07] MEDS: ASPIRIN 81 MG PO SCH (08:51)
--- NOTE | 2024-07-07 08:51 | US ---
EXAMINATION TYPE: US chest DATE OF EXAM: 07/07/2024 COMPARISON: Radiograph same day CLINICAL INDICATION: Female, 83 years old with history of Markings for thoracentesis by pulmonary sta ff; left pleural effusion TECHNIQUE: Targeted ultrasound of the posterior lower bilateral hemithoraces EXAM MEASUREMENTS: *Limitations, patient unable to sit upright on own, exam performed with patient lying on left side Right Pleural Effusion pocket size: 1.9 cm Right skin surface to fluid distance: 2.4 cm Left Pleural Effusion pocket size: 8.1 cm Left skin surface to fluid distance: 2.5 cm Right side NOT marked for possible thoracentesis outside the dept. Left side marked for possible thoracentesis outside the dept. Pulmonologists are able to review the images in the patient?s EMR. IMPRESSIONS: Trace right and moderate left pleural effusions. [facility], , 07/07/2024 8:49 AM
[2024-07-07] MEDS ORDERED: APIXABAN 2.5 MG TABLET PO SCH (09:00)
--- NOTE | 2024-07-07 12:01 | P.CNPUL ---
History of Present Illness Consult date: 07/07/24 Requesting physician: Zuri Garcia Reason for consult: dyspnea, hypoxemia, abnormal CXR/CT Chief complaint: Shortness of breath, fatigue, diarrhea, lower extremity edema History of present illness: This is a pleasant 83-year-old female patient with a history of severe kyphosis, coronary artery disease, diastolic congestive heart failure, diabetes mellitus, hypertension, hyperlipidemia, atrial fibrillation anticoagulated with Eliquis, previous pacemaker insertion. She also has a history of recurrent pleural effusions and has undergone left-sided thoracentesis on May 19 2024 with 500 cc of fluid removed and again in May 26, 2024 with 1.1 L removed, pathology revealed no evidence of malignancy. She presented here again last evening with complaints of increasing shortness of breath and lower extremity edema. Cardiomegaly with recurrent large left-sided pleural effusion and compressive atelectasis. Ultrasound of the left chest reveals a 8.1 cm pocket. The patient is on Eliquis which will be placed on hold. She is initiated on IV diuretics. White count 7.6. Hemoglobin 8.8. Platelets 284. Sodium 139. Potassium 4.1. Bicarb 25. BUN 48. Creatinine 2.77. Glucose 167. proBNP 7770. In in consultation in the emergency department. She is currently sitting up on the stretcher. Awake and alert in no acute distress. She is maintaining O2 saturations in the 90s liters per minute per nasal cannula. She is afebrile. Hemodynamically stable. Review of Systems REVIEW OF SYSTEMS: CONSTITUTIONAL: Positive for generalized weakness, denies any recent significant weight loss or weight gain. EYES: Denies change in vision. EARS, NOSE, MOUTH, THROAT: Denies headaches, denies sore throat. CARDIOVASCULAR: Denies chest pain, palpitations or syncopal episodes. RESPIRATORY: Positive for shortness of breath, no cough, congestion or hemoptysis. GASTROINTESTINAL: Positive for diarrhea. GENITOURINARY: Denies hematuria, denies infections. MUSKULOSKELETAL: Denies pain, denies swelling. INTEGUMENTARY: Denies rash, denies eczema. NEUROLOGICAL: Denies recent memory loss, no recent seizure activity. PSYCHIATRIC: Denies anxiety, denies depression. HEMATOLOGIC/LYMPHATIC: Denies anemia, denies enlarged lymph nodes. Past Medical History Past Medical History: Coronary Artery Disease (CAD), Heart Failure, Diabetes Mellitus, Hyperlipidemia, Hypertension, Renal Disease Additional Past Medical History / Comment(s): pacemaker for complete heart block, AVR- pig History of Any Multi-Drug Resistant Organisms: None Reported Past Surgical History: Appendectomy, Cholecystectomy, Coronary Bypass/CABG, Hysterectomy, Pacemaker, Tonsillectomy Additional Past Surgical History / Comment(s): CABG x3 11 years Past Anesthesia/Blood Transfusion Reactions: No Reported Reaction Type of Cardiac Device: Permanent Pacemaker Device Placement Date:: 02/20/23 Past Psychological History: No Psychological Hx Reported Smoking Status: Never smoker Past Alcohol Use History: None Reported Past Drug Use History: None Reported - Past Family History Father History Unknown: Yes Family Medical History: COPD Medications and Allergies Home Medications Medication Instructions Recorded Confirmed Type Simvastatin [Zocor] 20 mg PO HS 08/22/22 07/07/24 History Ubidecarenone [Co Q-10] 30 mg PO DAILY 09/06/23 07/07/24 History calcitrioL 0.25 mcg PO SA 11/17/23 07/07/24 History Apixaban [Eliquis] 2.5 mg PO BID 02/08/24 07/07/24 History allopurinoL [Zyloprim] 100 mg PO DAILY 05/06/24 07/07/24 History Aspirin 81 mg PO DAILY 30 Days #30 tab 05/20/24 07/07/24 Rx Cholecalciferol (Vitamin D3) 50 mcg PO DAILY 06/17/24 07/07/24 History [Vitamin D3 (50 Mcg = 2000 Iu)] Ondansetron Odt [Zofran ODT] 8 mg PO Q8HR PRN 06/17/24 07/07/24 History Torsemide [Demadex] 20 mg PO DAILY 06/17/24 07/07/24 History amLODIPine [Norvasc] 5 mg PO DAILY 06/17/24 07/07/24 History Allergies Allergy/AdvReac Type Severity Reaction Status Date / Time cephalexin Allergy Unknown Verified 07/07/24 08:55 ciprofloxacin [From Cipro] Allergy Unknown Verified 07/07/24 08:55 codeine Allergy Unknown Verified 07/07/24 08:55 Physical Exam Vitals: Vital Signs Pulse Resp BP Pulse Ox 07/07/24 08:52 60 20 131/57 96 07/07/24 08:05 96 07/07/24 05:47 60 20 128/59 100 07/07/24 04:20 60 18 134/56 100 07/07/24 02:55 60 20 146/61 100 07/07/24 00:53 59 L 20 151/62 100 07/06/24 23:09 63 20 156/70 100 Intake and Output 07/06/24 07/07/24 07/07/24 22:59 06:59 14:59 Other: Weight 58.513 kg GENERAL EXAM: Alert, pleasant 83-year-old female on 2 L nasal cannula, fairly comfortable in no apparent distress. HEAD: Normocephalic. EYES: Normal reaction of pupils, equal size. NOSE: Clear with pink turbinates. THROAT: No erythema or exudates. NECK: No masses, no JVD. CHEST: No chest wall deformity. LUNGS: Equal air entry with crackles, dullness of the left lung. CVS: S1 and S2 normal with no audible murmur, regular rhythm. ABDOMEN: No hepatosplenomegaly, normal bowel sounds, no guarding or rigidity. SPINE: No scoliosis or deformity SKIN: No rashes CENTRAL NERVOUS SYSTEM: No focal deficits, tone is normal in all 4 extremities. EXTREMITIES: There is 1-2+ peripheral edema. No clubbing, no cyanosis. Peripheral pulses are intact. Results - Laboratory Findings CBC and BMP: 07/06/24 23:21 07/06/24 23:21 PT/INR, D-dimer PT 10.4 sec (10.0-12.5) 07/06/24 23:21 INR 0.9 (<1.2) 07/06/24 23:21 Abnormal lab findings: Abnormal Labs 07/06/24 07/06/24 23:21 23:21 RBC 2.91 L Hgb 8.8 L Hct 28.6 L MCHC 30.9 L RDW 20.3 H BUN 48 H Creatinine 2.77 H Glucose 167 H Alkaline Phosphatase 183 H Total Protein 6.1 L Albumin 3.2 L - Diagnostic Findings Chest x-ray: image reviewed Assessment and Plan Assessment: Acute on chronic hypoxemic respiratory failure secondary to an acute exacerbation of diastolic congestive heart failure Recurrent left-sided pleural effusion secondary to above with previous thoracentesis x 2 in April and then May 2024, negative for malignancy History of CAD with previous bypass grafting History of diastolic congestive heart failure Diabetes mellitus Hyperlipidemia Hypertension Chronic kidney disease Atrial fibrillation anticoagulated with Eliquis Previous permanent pacemaker implantation Plan: The patient was seen and evaluated Chest x-ray, ultrasound of the chest, labs and medications reviewed Eliquis on hold Will plan for repeat thoracentesis Continue with IV diuretics Titrate the FiO2 as tolerated We will continue to follow and make further recommendations based on her clinical status I have personally seen and examined the patient, performed the documentation and the assessment and plan as written. Number of minutes spent on the visit: 20.
--- NOTE | 2024-07-07 12:32 | P.CRDCN ---
History of Present Illness Consult date: 07/07/24 History of present illness: The patient is a pleasant 83-year-old female patient who is known to our service from before with a past medical history significant for coronary artery disease status post CABG as well as valvular heart disease status post aortic valve replacement using bioprosthetic valve and known mitral stenosis and regurgitation as well as permanent atrial fibrillation and permanent pacemaker as well as history of heart failure and history of recurrent left pleural effusion status post pleurocentesis presented again to the hospital complaining of shortness of breath and bilateral lower extremities edema. She was last seen in the hospital in April 2024 when she was admitted with heart failure as well and she underwent pleurocentesis with removal of 500 cc from the left pleural space. This time she presented again with the progressive exertional dyspnea started this past Monday and got worse over the weekend associated with lower extremities edema with no symptoms of chest pain or chest discomfort or any dizziness or lightheadedness or any feeling of heart racing or fluttering or presyncope or syncope. She states that she has been compliant with her medications including the current dose of diuretics. Please note that the patient is known to have advanced chronic kidney disease and in the past she was offered dialysis but she refused. As a matter fact her creatinine today appears to be slightly better compared to before and lower than her baseline. She was started on Lasix IV at 40 mg twice daily. She also underwent ultrasound of the chest and that showed moderate left and mild right pleural effusion. NT proBNP is at 7000. The last echo from April 2024 showed normal LV systolic function with bioprosthetic aortic valve and mean gradient of 15 mmHg with moderate to severe mitral regurgitation mild aortic stenosis and severe pulmonary hypertension and enlarged right ventricle. The EKG at this time showed underlying atrial fibrillation with ventricular paced rhythm. 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 Coronary artery disease appears to be stable Permanent atrial fibrillation with controlled heart rate Advanced chronic kidney disease Permanent pacemaker Multiple comorbid conditions Plan Continue the current medical regimen including the current dose of Lasix IV Continue monitor the kidney function and electrolytes No need to repeat the echo in the light of recent echo from April 2024 The need for pleurocentesis to be addressed by the pulmonary team Follow-up with the patient Restart the patient back on Coumadin unless she need to undergo pleurocentesis Past Medical History Past Medical History: Coronary Artery Disease (CAD), Heart Failure, Diabetes Mellitus, Hyperlipidemia, Hypertension, Renal Disease Additional Past Medical History / Comment(s): pacemaker for complete heart block, AVR- pig History of Any Multi-Drug Resistant Organisms: None Reported Past Surgical History: Appendectomy, Cholecystectomy, Coronary Bypass/CABG, Hyst erectomy, Pacemaker, Tonsillectomy Additional Past Surgical History / Comment(s): CABG x3 11 years Past Anesthesia/Blood Transfusion Reactions: No Reported Reaction Type of Cardiac Device: Permanent Pacemaker Device Placement Date:: 02/20/23 Past Psychological History: No Psychological Hx Reported Smoking Status: Never smoker Past Alcohol Use History: None Reported Past Drug Use History: None Reported - Past Family History Father History Unknown: Yes Family Medical History: COPD Medications and Allergies Home Medications Medication Instructions Recorded Confirmed Type Simvastatin [Zocor] 20 mg PO HS 08/22/22 07/07/24 History Ubidecarenone [Co Q-10] 30 mg PO DAILY 09/06/23 07/07/24 History calcitrioL 0.25 mcg PO SA 11/17/23 07/07/24 History Apixaban [Eliquis] 2.5 mg PO BID 02/08/24 07/07/24 History allopurinoL [Zyloprim] 100 mg PO DAILY 05/06/24 07/07/24 History Aspirin 81 mg PO DAILY 30 Days #30 tab 05/20/24 07/07/24 Rx Cholecalciferol (Vitamin D3) 50 mcg PO DAILY 06/17/24 07/07/24 History [Vitamin D3 (50 Mcg = 2000 Iu)] Ondansetron Odt [Zofran ODT] 8 mg PO Q8HR PRN 06/17/24 07/07/24 History Torsemide [Demadex] 20 mg PO DAILY 06/17/24 07/07/24 History amLODIPine [Norvasc] 5 mg PO DAILY 06/17/24 07/07/24 History Allergies Allergy/AdvReac Type Severity Reaction Status Date / Time cephalexin Allergy Unknown Verified 07/07/24 08:55 ciprofloxacin [From Cipro] Allergy Unknown Verified 07/07/24 08:55 codeine Allergy Unknown Verified 07/07/24 08:55 Physical Exam Vitals: Vital Signs Pulse Resp BP Pulse Ox 07/07/24 08:52 60 20 131/57 96 07/07/24 08:05 96 07/07/24 05:47 60 20 128/59 100 07/07/24 04:20 60 18 134/56 100 07/07/24 02:55 60 20 146/61 100 07/07/24 00:53 59 L 20 151/62 100 07/06/24 23:09 63 20 156/70 100 Intake and Output 07/06/24 07/07/24 07/07/24 22:59 06:59 14:59 Other: Weight 58.513 kg Results 07/06/24 23:21 07/06/24 23:21 Cardiac Enzymes 07/06/24 07/06/24 Range/Units 23:21 23:21 AST 26 (14-36) U/L Troponin I 0.015 (0.000-0.034) ng/mL Coagulation 07/06/24 Range/Units 23:21 PT 10.4 (10.0-12.5) sec APTT 27.1 (22.0-30.0) sec CBC 07/06/24 Range/Units 23:21 WBC 7.6 (3.8-10.6) k/uL RBC 2.91 L (3.80-5.40) m/uL Hgb 8.8 L (11.4-16.0) gm/dL Hct 28.6 L (34.0-46.0) % Plt Count 284 (150-450) k/uL Comprehensive Metabolic Panel 07/06/24 Range/Units 23:21 Sodium 139 (137-145) mmol/L Potassium 4.2 (3.5-5.1) mmol/L Chloride 105 (98-107) mmol/L Carbon Dioxide 25 (22-30) mmol/L BUN 48 H (7-17) mg/dL Creatinine 2.77 H (0.52-1.04) mg/dL Glucose 167 H (74-99) mg/dL Calcium 8.7 (8.4-10.2) mg/dL AST 26 (14-36) U/L ALT 12 (4-34) U/L Alkaline Phosphatase 183 H (38-126) U/L Total Protein 6.1 L (6.3-8.2) g/dL Albumin 3.2 L (3.5-5.0) g/dL Current Medications Generic Name Dose Route Start Last Admin Trade Name Freq PRN Reason Stop Dose Admin Aspirin 81 mg 07/07/24 09:00 07/07/24 08:51 Aspirin 81 Mg PO 81 mg DAILY FAUSTO Administration Atorvastatin Calcium 10 mg 07/07/24 21:00 Atorvastatin 10 Mg Tab PO HS FAUSTO Dextrose/Water 25 ml 07/07/24 04:27 Dextrose 50% Syringe 50 Ml IVP PER PROTOCOL PRN Hypoglycemia Protocol Dextrose/Water 50 ml 07/07/24 04:27 Dextrose 50% Syringe 50 Ml IVP PER PROTOCOL PRN Hypoglycemia Protocol Furosemide 40 mg 07/07/24 09:00 07/07/24 08:51 Furosemide 10 Mg/Ml 4 Ml Vial IV 40 mg BID FAUSTO Administration Insulin Aspart 0 unit 07/07/24 07:30 07/07/24 07:16 Insulin Aspart (Novolog) 100 Unit/Ml Vial SQ Not Given ACHS FAUSTO Protocol Naloxone HCl 0.2 mg 07/07/24 01:58 Naloxone 0.4 Mg/Ml 1 Ml Vial IV Q2M PRN Opioid Reversal Intake and Output 07/06/24 07/07/24 07/07/24 22:59 06:59 14:59 Other: Weight 58.513 kg 07/06/24 23:21 07/06/24 23:21
[2024-07-07 13:46] LABS: Glucose,Whole Blood 179 mg/dL (70-110)
--- NOTE | 2024-07-07 14:31 | XR ---
EXAMINATION TYPE: XR chest 1V portable DATE OF EXAM: 07/07/2024 Comparison: 07/07/2024 Clinical History: 83-year-old female s/p lt thoracentesis Findings: Left anterior chest wall pacemaker generator with right atrial and right ventricular leads. Leftward margin appeared by adjacent pleural parenchymal opacity. Residual small to moderate left pleural effu mariya with patchy left lower lung opacity. No appreciable pneumothorax. Cholecystectomy clips. End-sta ge [id number] degenerative change both shoulders. Impression: Residual [id number] left pleural effusion with prominent adjacent atelectasis and/or consolida tion. No appreciable pneumothorax. [facility], , 07/07/2024 2:29 PM
[2024-07-07 18:03] LABS: Glucose,Whole Blood 187 mg/dL (70-110)
--- NOTE | 2024-07-07 19:40 | OP ---
OPERATIVE REPORT DATE OF SERVICE : OPERATION: Left-sided thoracentesis. PREOPERATIVE DIAGNOSIS: Recurrent left pleural effusion. POSTOPERATIVE DIAGNOSIS: Recurrent left pleural effusion. ANESTHESIA USED: 2 mL of 1% lidocaine. DESCRIPTION OF PROCEDURE: The fluid was earlier localized by ultrasound guidance, and marking was placed at the level of the 8th intercostal space and tip of the scapula. The area was prepared in a sterile fashion, drapes were applied, the area was locally anesthetized, then a 26- gauge needle advanced into the pleural space. Fluid was localized with the needle. Then a small tiny incision was made and a standard thoracentesis catheter and needle were used, advanced into the pleural space, fluid was obtained. The catheter was advanced over the needle, and the needle was pulled out of the pleural space. Freely flowing fluid was removed, roughly 950 mL of slightly serosanguineous fluid was drained from the left pleural space. Fluid was discarded. The patient had multiple studies on the fluid in the past, no need for repeat studies on the fluid from the pleural effusion. Procedure was well tolerated, no complications, chest x-ray is pending at the time of this dictation. MMODL / IJN: [id number] /
[2024-07-07] MEDS: ATORVASTATIN 10 MG TAB PO SCH (20:46)
[2024-07-07 21:28] LABS: Glucose,Whole Blood 179 mg/dL (70-110)
[2024-07-08] MEDS: APIXABAN 2.5 MG TABLET PO SCH (00:06)
[2024-07-08 05:43] LABS: Glucose,Whole Blood 93 mg/dL (70-110)
[2024-07-08 08:48] LABS: Basophils # (A) 0.07 X 10*3/uL (0.00-0.10); Basophils % (A) 0.9 %; Eosinophils # (A) 0.61 X 10*3/uL (0.04-0.35); Eosinophils % (A) 8.1 %; HCT 27.4 % (37.2-46.3); HGB 8.3 g/dL (12.0-15.0); Lymphocytes # (A) 1.65 X 10*3/uL (0.90-5.00); MCH 30.3 pg (27.0-32.0); MCHC 30.3 g/dL (32.0-37.0); Mean Platelet Volume 11.8 FL (9.5-12.2); Monocytes # (A) 0.78 X 10*3/uL (0.20-1.00); Monocytes % (A) 10.4 %; NRBC Per 100 WBC 0 X 10*3/uL (0.00-0.01); Neutrophils # (A) 4.36 X 10*3/uL (1.80-7.70); Neutrophils % (A) 58.3 %; Platelet Count 245 X 10*3/uL (140-440); RBC 2.74 X 10*6/uL (4.10-5.20); RDW 21.5 % (11.5-14.5); WBC 7.49 X 10*3/uL (4.50-10.00)
[2024-07-08 09:00] LABS: BUN/Creat Ratio 14.75 Ratio (12.00-20.00); Blood Urea Nitrogen 41.3 mg/dL (9.0-27.0); Calcium 8.7 mg/dL (8.7-10.3); Carbon Dioxide 26.6 mmol/L (21.6-31.8); Chloride 104 mmol/L (96-109); Glucose 93 mg/dL (70-110); Magnesium 2.1 mg/dL (1.5-2.4); Potassium 4.8 mmol/L (3.5-5.5); Sodium 140 mmol/L (135-145)
[2024-07-08] MEDS: amLODIPine 5 MG TAB PO SCH (09:07)
[2024-07-08] MEDS: allopurinoL 100 MG TAB PO SCH (09:07)
--- NOTE | 2024-07-08 10:04 | P.PN ---
Subjective Patient is resting comfortably in bed. Yesterday she had a thoracentesis performed and is breathing a lot better She is back on Eliquis and aspirin On examination she has a murmur of mitral regurgitation No chest discomfortBlood pressure 147/55 mmHg Afebrile 97.6 F No JVD Chest x-ray had shown a large left pleural effusion with compressive atelectasis Twelve-lead EKG shows RV apical pacing with occasional PVCs Impression Mitral regurgitation, severe, degenerative in nature Complete heart block/2-1 heart block in the past status post dual-chamber pacemaker with RV apical pacing 950 mL of serosanguineous fluid was drained from the left pleural space Elevated blood pressure reading Chronic kidney disease BUN 41 and creatinine 2.8, potassium 4.8 Hemoglobin 8.3 Suggest Increase amlodipine to 7.5 mg p.o. daily Continue Zocor Switch to p.o. Lasix 40 mg once daily/Demadex 40 mg daily Spironolactone 12.5 mg p.o. daily transfer to Objective - Vital Signs Vital signs: Vital Signs Temp 97.6 F 07/08/24 07:42 Pulse 61 07/08/24 07:42 Resp 18 07/08/24 07:42 BP 147/55 07/08/24 07:42 Pulse Ox 95 07/08/24 07:42 FiO2 Intake & Output 07/07/24 07/08/24 07/08/24 18:59 06:59 18:59 Output Total 550 Balance -550 Weight 58.513 kg 66 kg Output: Urine 550 Other: Voiding Method Indwelling Catheter - Labs CBC & Chem 7: 07/08/24 04:56 07/08/24 04:56 Labs: Abnormal Lab Results - Last 24 Hours (Table) 07/07/24 07/07/24 07/07/24 Range/Units 13:45 18:02 21:27 RBC (4.10-5.20) X 10*6/uL Hgb (12.0-15.0) g/dL Hct (37.2-46.3) % MCV (80.0-97.0) FL MCHC (32.0-37.0) g/dL RDW (11.5-14.5) % Eosinophils # (0.04-0.35) X 10*3/uL BUN (9.0-27.0) mg/dL Creatinine (0.6-1.5) mg/dL Est GFR (CKD-EPI) (>=60) POC Glucose (mg/dL) 179 H 187 H 179 H (70-110) mg/dL Hemoglobin A1c (<=6.0) % 07/08/24 07/08/24 07/08/24 Range/Units 04:56 04:56 04:56 RBC 2.74 L (4.10-5.20) X 10*6/uL Hgb 8.3 L (12.0-15.0) g/dL Hct 27.4 L (37.2-46.3) % MCV 100.0 H (80.0-97.0) FL MCHC 30.3 L (32.0-37.0) g/dL RDW 21.5 H (11.5-14.5) % Eosinophils # 0.61 H (0.04-0.35) X 10*3/uL BUN 41.3 H (9.0-27.0) mg/dL Creatinine 2.8 H (0.6-1.5) mg/dL Est GFR (CKD-EPI) 16 L (>=60) POC Glucose (mg/dL) (70-110) mg/dL Hemoglobin A1c 6.2 H (<=6.0) %
[2024-07-08 11:52] LABS: Glucose,Whole Blood 158 mg/dL (70-110)
--- NOTE | 2024-07-08 13:25 | P.PN ---
Subjective Progress Note Date: 07/08/24 This is a pleasant 83-year-old female patient with a history of severe kyphosis, coronary artery disease, diastolic congestive heart failure, diabetes mellitus, hypertension, hyperlipidemia, atrial fibrillation anticoagulated with Eliquis, previous pacemaker insertion. She also has a history of recurrent pleural effusions and has undergone left-sided thoracentesis on May 19 2024 with 500 cc of fluid removed and again in May 26, 2024 with 1.1 L removed, pathology revealed no evidence of malignancy. She presented here again last evening with complaints of increasing shortness of breath and lower extremity edema. Cardiomegaly with recurrent large left-sided pleural effusion and compressive atelectasis. Ultrasound of the left chest reveals a 8.1 cm pocket. The patient is on Eliquis which will be placed on hold. She is initiated on IV diuretics. White count 7.6. Hemoglobin 8.8. Platelets 284. Sodium 139. Potassium 4.1. Bicarb 25. BUN 48. Creatinine 2.77. Glucose 167. proBNP 7770. In in consultation in the emergency department. She is currently sitting up on the stretcher. Awake and alert in no acute distress. She is maintaining O2 saturations in the 90s liters per minute per nasal cannula. She is afebrile. Hemodynamically stable. The patient is seen today July 08, 2024 in follow-up on the regular medical floor. She is currently resting comfortably in bed. Awake and alert in no acute distress. Maintaining O2 saturations in the mid 90s on 2 L/min per nasal cannula. She did undergo a left-sided thoracentesis yesterday with 950 mL of fluid removed. Chest x-ray revealed a residual small to moderate left pleural effusion with prominent adjacent atelectasis. No appreciable pneumothorax. White count 7.4. Hemoglobin 8.3. Platelets 245. Sodium 140. Potassium 4.8. Bicarb 27. BUN 41. Creatinine 2.8. Glucose 93. Continued on oral diuretics. Anticoagulated with Eliquis. Objective - Vital Signs Vital signs: Vital Signs Temp 97.6 F 07/08/24 07:42 Pulse 61 07/08/24 07:42 Resp 18 07/08/24 07:42 BP 147/55 07/08/24 07:42 Pulse Ox 95 07/08/24 07:42 FiO2 Intake & Output 07/07/24 07/08/2407/08/24 18:59 06:59 18:59 Output Total 550 Balance -550 Weight 58.513 kg 66 kg Output: Urine 550 Other: Voiding Method Indwelling Catheter Indwelling Catheter - Exam GENERAL EXAM: Alert, 83-year-old female on 2 L nasal cannula, comfortable in no apparent distress. HEAD: Normocephalic. EYES: Normal reaction of pupils, equal size. NOSE: Clear with pink turbinates. THROAT: No erythema or exudates. NECK: No masses, no JVD. CHEST: No chest wall deformity. LUNGS: Equal air entry with crackles, dullness of the left lung. CVS: S1 and S2 normal with no audible murmur, regular rhythm. ABDOMEN: No hepatosplenomegaly, normal bowel sounds, no guarding or rigidity. SPINE: Severe kyphosis SKIN: No rashes CENTRAL NERVOUS SYSTEM: No focal deficits, tone is normal in all 4 extremities. EXTREMITIES: There is 1-2+ peripheral edema. No clubbing, no cyanosis. Peripheral pulses are intact. - Labs CBC & Chem 7: 07/08/24 04:56 07/08/24 04:56 Labs: Abnormal Lab Results - Last 24 Hours (Table) 07/07/24 07/07/24 07/07/24 Range/Units 13:45 18:02 21:27 RBC (4.10-5.20) X 10*6/uL Hgb (12.0-15.0) g/dL Hct (37.2-46.3) % MCV (80.0-97.0) FL MCHC (32.0-37.0) g/dL RDW (11.5-14.5) % Eosinophils # (0.04-0.35) X 10*3/uL BUN (9.0-27.0) mg/dL Creatinine (0.6-1.5) mg/dL Est GFR (CKD-EPI) (>=60) POC Glucose (mg/dL) 179 H 187 H 179 H (70-110) mg/dL Hemoglobin A1c (<=6.0) % 07/08/24 07/08/24 07/08/24 Range/Units 04:56 04:56 04:56 RBC 2.74 L (4.10-5.20) X 10*6/uL Hgb 8.3 L (12.0-15.0) g/dL Hct 27.4 L (37.2-46.3) % MCV 100.0 H (80.0-97.0) FL MCHC 30.3 L (32.0-37.0) g/dL RDW 21.5 H (11.5-14.5) % Eosinophils # 0.61 H (0.04-0.35) X 10*3/uL BUN 41.3 H (9.0-27.0) mg/dL Creatinine 2.8 H (0.6-1.5) mg/dL Est GFR (CKD-EPI) 16 L (>=60) POC Glucose (mg/dL) (70-110) mg/dL Hemoglobin A1c 6.2 H (<=6.0) % 07/08/24 Range/Units 11:50 RBC (4.10-5.20) X 10*6/uL Hgb (12.0-15.0) g/dL Hct (37.2-46.3) % MCV (80.0-97.0) FL MCHC (32.0-37.0) g/dL RDW (11.5-14.5) % Eosinophils # (0.04-0.35) X 10*3/uL BUN (9.0-27.0) mg/dL Creatinine (0.6-1.5) mg/dL Est GFR (CKD-EPI) (>=60) POC Glucose (mg/dL) 158 H (70-110) mg/dL Hemoglobin A1c (<=6.0) % Assessment and Plan Assessment: Acute on chronic hypoxemic respiratory failure secondary to an acute exacer bation of diastolic congestive heart failure Recurrent left-sided pleural effusion secondary to above with previous thoracentesis x 2 in April and then May 2024, negative for malignancy. Status post left-sided thoracentesis 07/07/2024 with 950 mL removed History of CAD with previous bypass grafting History of diastolic congestive heart failure Diabetes mellitus Hyperlipidemia Hypertension Chronic kidney disease Atrial fibrillation anticoagulated with Eliquis Previous permanent pacemaker implantation Plan: The patient was seen and evaluated Chest x-ray labs and medications reviewed Thoracentesis performed yesterday Remains on Eliquis Remains on oral diuretics Titrate the FiO2 as tolerated Cleared for discharge I have personally seen and examined the patient, performed the documentation and the assessment and plan as written. Number of minutes spent on the visit: 10.
--- NOTE | 2024-07-08 15:03 | P.PN ---
Subjective Progress Note Date: 07/08/24 Hospital Course: 83-year-old female with diastolic heart, hypertension, CAD, prior valve repla cement, CKD stage IV, status post pacemaker, COPD on home 2 L, atrial fibrillation on Eliquis presenting with shortness of breath. On presentation patient was on 4 L nasal cannula. Blood work showed hemoglobin of 8.8, baseline, creatinine of 2.77 slightly above baseline. Patient admitted for acut e on chronic diastolic heart failure exacerbation along with left-sided pleural effusion. Pulmonology and cardiology consulted. Patient started on IV Lasix. Also had thoracentesis with 950 cc fluid drained. Subjective: Patient seen and examined at bedside. No acute events overnight. Claims that breathing is a lot better after thoracentesis. Has a chronic Ordoñez catheter which was exchanged 1 week ago. Denies any other new complaints. Pertinent positives and negatives as discussed above, a complete review of systems was performed and all other systems are negative. Vitals Signs Reviewed. General: Nontoxic, no distress, appears at stated age, chronically debilitated, chronic Ordoñez Derm: Warm, dry Head: Atraumatic, normocephalic, symmetric Eyes: EOMI, no lid lag, anicteric sclera Mouth: No lip lesion, mucus membranes moist Cardiovascular: S1S2 reg, systolic murmur Lungs: Bibasilar rales, no accessory muscle use, supplemental oxygen Abdominal: Soft, nontender to palpation, no guarding, no appreciable organomegaly Ext: No gross muscle atrophy, trace peripheral edema, no contractures Neuro: CN II-XI grossly intact, no focal neuro deficits Psych: Alert, oriented, appropriate affect Data Reviewed Today: Pertinent Labs: WBC 7.49, hemoglobin 8.3, creatinine 2.8, blood sugars range between 93-1 79, magnesium 2.1, A1c 6.2 Imaging: No new imaging Assessment and Plan: Acute on chronic diastolic heart failure exacerbation Acute on chronic hypoxic respiratory failure, resolved Left-sided pleural effusion s/p thoracentesis Hypertension Dyslipidemia History of CAD Chronic kidney disease stage IV 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 present on admission -IV diuretics changed to oral 40 Lasix daily, continue to monitor renal function and electrolytes -Back to 2 L O2 -Pulmonology note reviewed, okay to be discharged from their standpoint -Cardiology note reviewed, amlodipine increased to 7.5, spironolactone 12.5 added -Continue to monitor renal function, creatinine slightly uptrending, patient continues to make urine, has a chronic Ordoñez in place -Continue aspirin 81 mg, atorvastatin 10 mg Paroxysmal atrial fibrillation -Continue Eliquis 2.5 twice daily -Rate controlled Prediabetes, A1c 6.2 Hyperglycemia -Continue sliding scale insulin ACH S, monitor for hypoglycemia Gout -Continue allopurinol 100 mg daily DVT ppx: Eliquis Code status: Full code Anticipated discharge place: Home Anticipated discharge time: Likely tomorrow Objective - Vital Signs Vital signs: Vital Signs Temp 97.6 F 07/08/24 07:42 Pulse 61 07/08/24 07:42 Resp 18 07/08/24 07:42 BP 147/55 07/08/24 07:42 Pulse Ox 95 07/08/24 07:42 FiO2 Intake & Output 07/07/24 07/08/24 07/08/24 18:59 06:59 18:59 Output Total 550 Balance -550 Weight 58.513 kg 66 kg Output: Urine 550 Other: Voiding Method Indwelling Catheter Indwelling Catheter - Labs CBC & Chem 7: 07/08/24 04:56 07/08/24 04:56 Labs: Abnormal Lab Results - Last 24 Hours (Table) 07/07/24 07/07/24 07/08/24 Range/Units 18:02 21:27 04:56 RBC (4.10-5.20) X 10*6/uL Hgb (12.0-15.0) g/dL Hct (37.2-46.3) % MCV (80.0-97.0) FL MCHC (32.0-37.0) g/dL RDW (11.5-14.5) % Eosinophils # (0.04-0.35) X 10*3/uL BUN (9.0-27.0) mg/dL Creatinine (0.6-1.5) mg/dL Est GFR (CKD-EPI) (>=60) POC Glucose (mg/dL) 187 H 179 H (70-110) mg/dL Hemoglobin A1c 6.2 H (<=6.0) % 07/08/24 07/08/24 07/08/24 Range/Units 04:56 04:56 11:50 RBC 2.74 L (4.10-5.20) X 10*6/uL Hgb 8.3 L (12.0-15.0) g/dL Hct 27.4 L (37.2-46.3) % MCV 100.0 H (80.0-97.0) FL MCHC 30.3 L (32.0-37.0) g/dL RDW 21.5 H (11.5-14.5) % Eosinophils # 0.61 H (0.04-0.35) X 10*3/uL BUN 41.3 H (9.0-27.0) mg/dL Creatinine 2.8 H (0.6-1.5) mg/dL Est GFR (CKD-EPI) 16 L (>=60) POC Glucose (mg/dL) 158 H (70-110) mg/dL Hemoglobin A1c (<=6.0) %
[2024-07-08 17:05] LABS: Glucose,Whole Blood 207 mg/dL (70-110)
--- NOTE | 2024-07-08 17:46 | CA ---
Transthoracic Echo Report Name: Felicitas Nielsen Age: 83 Gender: F : 1940 Exam Date: 07/08/2024 08:08 Exam Location: [facility] Ht (in): 66 Wt (lb): 129 Ordering Physician: Mera Chambers MD Attending/Referring Phys: Engraver Seals Kiara Armando RDCS Procedure CPT: Indications: Heart failure Cardiac Hx: Technical Quality: Good Contrast 1: Total Dose (mL): Contrast 2: Total Dose (mL): MEASUREMENTS (Male / Female) Normal Values 2D ECHO LV Diastolic Diameter PLAX 5.0 cm 4.2 - 5.9 / 3.9 - 5.3 cm LV Systolic Diameter PLAX 3.4 cm IVS Diastolic Thickness 0.7 cm 0.6 - 1.0 / 0.6 - 0.9 cm LVPW Diastolic Thickness 0.8 cm 0.6 - 1.0 / 0.6 - 0.9 cm LV Relative Wall Thickness 0.3 LVOT Diameter 1.9 cm LV Diastolic Volume MOD BP 107.7 cm??? 67 - 155 / 56 - 104 cm??? LV Systolic Volume MOD BP 35.3 cm??? 22 - 58 / 19 - 49 cm??? LV Ejection Fraction MOD BP 67.2 % >= 55 % LV Cardiac Index MOD BP 3162.7 cm???/min???m??? LV Diastolic Volume MOD 4C 89.1 cm??? LV Systolic Volume MOD 4C 38.0 cm??? LV Ejection Fraction MOD 4C 57.4 % LV Cardiac Index MOD 4C 2231.6 cm???/min???m??? LV Diastolic Length 4C 7.2 cm LV Systolic Length 4C 6.5 cm LV Diastolic Volume MOD 2C 120.8 cm??? LV Systolic Volume MOD 2C 30.9 cm??? LV Ejection Fraction MOD 2C 74.4 % LV Cardiac Index MOD 2C 3927.1 cm???/min???m??? LV Diastolic Length 2C 7.8 cm LV Systolic Length 2C 6.1 cm Ascending Aorta Diameter 4.4 cm DOPPLER AV Peak Velocity 251.5 cm/s AV Peak Gradient 25.3 mmHg AV Mean Velocity 186.2 cm/s AV Mean Gradient 15.1 mmHg AV Velocity Time Integral 62.5 cm LVOT Peak Velocity 161.0 cm/s LVOT Peak Gradient 10.4 mmHg LVOT Velocity Time Integral 38.7 cm LVOT Stroke Volume 112.4 cm??? LVOT Stroke Volume Index 67.7 ml/m??? LVOT Cardiac Index 4908.4 cm???/min???m??? AV Area Cont Eq vti 1.8 cm??? AV Area Cont Eq pk 1.9 cm??? MV Peak Velocity 197.2 cm/s MV Peak Gradient 15.6 mmHg MV Mean Velocity 101.9 cm/s MV Mean Gradient 5.1 mmHg MV Velocity Time Integral 59.8 cm MR Peak Velocity 564.8 cm/s MR Peak Gradient 127.6 mmHg TR Peak Velocity 300.4 cm/s TR Peak Gradient 36.1 mmHg Right Atrial Pressure 15.0 mmHg Pulmonary Artery Systolic Pressu 51.1 mmHg Right Ventricular Systolic Press 51.1 mmHg PV Peak Velocity 154.9 cm/s PV Peak Gradient 9.6 mmHg FINDINGS Left Ventricle Left ventricular ejection fraction is estimated at 55-60 %. Mildly increased left ventricular diastolic volume. Left ventricular wall thickness normal. No obvious regional wall motion abnormalities. Right Ventricle Mild right ventricular dilatation with reduced function. Moderate to severe pulmonary hypertension. Right Atrium Right atrial dilatation. Catheter/pacemaker wire in the right atrial cavity. Left Atrium Left atrial dilatation. Mitral Valve Moderate mitral annular calcification. Mitral valve thickened. No evidence for mitral valve prolapse. Moderate mitral stenosis. [id number] mitral regurgitation. Unable to estimate pulmonary vein flow reversals. Aortic Valve Bioprosthetic aortic valve without stenosis with a peak velocity of 2.6 m/s, peak gradient 26mmHg, mean gradient 16 mmHg, and estimated aortic valve area of 1.8 cm???. Mild prosthesis aortic regurgitation. No periprosthetic regurgitation. Tricuspid Valve Structurally normal tricuspid valve. No tricuspid stenosis. Moderate tricuspid regurgitation. Pulmonic Valve Structurally normal pulmonic valve. No pulmonic regurgitation. Mild pulmonic regurgitation. Pericardium No pericardial effusion. Left pleural effusion. Aorta Aortic annulus normal. Ascending aorta mild to moderately enlarged. CONCLUSIONS Diagnosis: Acute respiratory distress with congestive heart failure, pleural effusion 2D echo reveals preserved LV size and systolic function despite 100% RV pacing Very calcific mitral valvular structures with severe mitral regurgitation consistent with her history of heart failure Previewed by: Dr. Andriy Barnett MD (Electronically Signed) Final Date: 08 July 2024 17:45
[2024-07-08 21:21] LABS: Glucose,Whole Blood 173 mg/dL (70-110)
[2024-07-08 23:59] VITALS: RESP 18
[2024-07-09] MEDS: ACETAMINOPHEN TAB 325 MG TAB PO PRN (00:58)
[2024-07-09 03:06] VITALS: PULSE 60
[2024-07-09 05:51] LABS: Glucose,Whole Blood 103 mg/dL (70-110)
[2024-07-09 05:56] LABS: Anisocytosis Moderate; Basophils # (A) 0.1 k/uL (0-0.2); Basophils % (A) 1 %; Eosinophils # (A) 0.8 k/uL (0-0.7); Eosinophils % (A) 7 %; HCT 27.1 % (34.0-46.0); HGB 8.9 gm/dL (11.4-16.0); Lymphocytes # (A) 2.4 k/uL (1.0-4.8); Lymphocytes % (A) 24 %; MCH 31.7 pg (25.0-35.0); MCHC 32.9 g/dL (31.0-37.0); MCV 96.3 fL (80.0-100.0); Macrocytosis Slight; Mean Platelet Volume 10.7; Monocytes # (A) 0.8 k/uL (0-1.0); Monocytes % (A) 8 %; Neutrophils # (A) 5.9 k/uL (1.3-7.7); Neutrophils % (A) 59 %; Platelet Count 284 k/uL (150-450); RBC 2.81 m/uL (3.80-5.40); RDW 20.9 % (11.5-15.5); WBC 10.1 k/uL (3.8-10.6)
[2024-07-09 05:58] LABS: African American GFR (CKD) 19 (>60 ml/min/1.73 sqM); Anion Gap 6 mmol/L; Blood Urea Nitrogen 48 mg/dL (7-17); Calcium 8.8 mg/dL (8.4-10.2); Carbon Dioxide 26 mmol/L (22-30); Chloride 106 mmol/L (98-107); Glucose 89 mg/dL (74-99); Non-African American GFR(CKD) 17 (>60 ml/min/1.73 sqM); Sodium 138 mmol/L (137-145)
[2024-07-09 06:10] LABS: Magnesium 2.2 mg/dL (1.6-2.3); Potassium 5.7 mmol/L (3.5-5.1)
[2024-07-09] MEDS: amLODIPine 5 MG TAB PO SCH (07:52)
[2024-07-09] MEDS: FUROSEMIDE 40 MG TAB PO SCH (07:53)
[2024-07-09] MEDS: SPIRONOLACTONE 25 MG TAB PO SCH (07:53)
[2024-07-09 08:56] VITALS: BP 151/66; TEMP 98.5
[2024-07-09 11:35] LABS: Glucose,Whole Blood 108 mg/dL (70-110)
--- NOTE | 2024-07-09 12:56 | P.PN ---
Subjective Progress Note Date: 07/09/24 Principal diagnosis: Dyspnea, pleural effusion. This is a pleasant 83-year-old female patient with a history of severe kyphosis, coronary artery disease, diastolic congestive heart failure, diabetes mellitus, hypertension, hyperlipidemia, atrial fibrillation anticoagulated with Eliquis, previous pacemaker insertion. She also has a history of recurrent pleural effusions and has undergone left-sided thoracentesis on May 19 2024 with 500 cc of fluid removed and again in May 26, 2024 with 1.1 L removed, pathology revealed no evidence of malignancy. She presented here again last evening with complaints of increasing shortness of breath and lower extremity edema. Cardiom egaly with recurrent large left-sided pleural effusion and compressive atelectasis. Ultrasound of the left chest reveals a 8.1 cm pocket. The patient is on Eliquis which will be placed on hold. She is initiated on IV diuretics. White count 7.6. Hemoglobin 8.8. Platelets 284. Sodium 139. Potassium 4.1. Bicarb 25. BUN 48. Creatinine 2.77. Glucose 167. proBNP 7770. In in consultation in the emergency department. She is currently sitting up on the stretcher. Awake and alert in no acute distress. She is maintaining O2 saturations in the 90s liters per minute per nasal cannula. She is afebrile. Hemodynamically stable. The patient is seen today July 08, 2024 in follow-up on the regular medical floor. She is currently resting comfortably in bed. Awake and alert in no acu te distress. Maintaining O2 saturations in the mid 90s on 2 L/min per nasal cannula. She did undergo a left-sided thoracentesis yesterday with 950 mL of fluid removed. Chest x-ray revealed a residual small to moderate left pleural effusion with prominent adjacent atelectasis. No appreciable pneumothorax. White count 7.4. Hemoglobin 8.3. Platelets 245. Sodium 140. Potassium 4.8. Bicarb 27. BUN 41. Creatinine 2.8. Glucose 93. Continued on oral diuretics. Anticoagulated with Eliquis. Progress note dated 2023. 83-year-old female who was admitted with a diagnosis of shortness of breath, and pleural effusion. The patient did have a left-sided thoracentesis, with nearly 1 L of fluid being removed. Currently, the patient is seen today in room 470. She is on no IV fluids. She is receiving oxygen by nasal cannula 2 L. Current labs include a white count 10.1, hemoglobin 8.9, hematocrit 27.1, and a platelet count of 284,000. Sodium 138, potassium 5.7, chlorides 106, CO2 26, BUN 48, creatinine 2.54. Calcium is 8.8, and magnesium is 2.2. Glucose is 108. Objective - Vital Signs Vital signs: Vital Signs Temp 98.5 F 07/09/24 07:23 Pulse 60 07/09/24 07:23 Resp 18 07/09/24 09:22 BP 151/66 07/09/24 07:23 Pulse Ox 98 07/09/24 08:41 FiO2 Intake & Output 07/08/24 07/09/24 07/09/24 18:59 06:59 18:59 Output Total 500 200 Balance -500 -200 Weight 68 kg Output: Urine 500 200 Other: Voiding Method Indwelling Catheter Indwelling Catheter Indwelling Catheter # Voids 1 - Exam No acute distress, oriented 3. No acute distress. No respiratory distress. Currently on 2 L. HEENT examination is grossly unremarkable. Mucous membranes are moist. No oral lesions. Neck supple. Full range of motion. No adenopathy thyromegaly or neck vein distention. Cardiovascular examination reveals regular rhythm rate. S1-S2 normal. No S3 or S4. No discernible murmur noted. Lungs reveal diminished breath sounds throughout. Minimal basilar crackles. No wheezes or rhonchi. Abdomen soft bowel sounds are heard. No masses or tenderness. Extremities are intact. No cyanosis or clubbing. Minimal edema. Skin is without rash or lesion. Neurologic examination is brief but nonfocal. - Labs CBC & Chem 7: 07/09/24 05:21 07/09/24 05:21 Labs: Abnormal Lab Results - Last 24 Hours (Table) 07/08/24 07/08/24 07/09/24 Range/Units 17:04 21:19 05:21 RBC 2.81 L (3.80-5.40) m/uL Hgb 8.9 L (11.4-16.0) gm/dL Hct 27.1 L (34.0-46.0) % RDW 20.9 H (11.5-15.5) % Eosinophils # 0.8 H (0-0.7) k/uL Potassium (3.5-5.1) mmol/L BUN (7-17) mg/dL Creatinine (0.52-1.04) mg/dL POC Glucose (mg/dL) 207 H 173 H (70-110) mg/dL 07/09/24 Range/Units 05:21 RBC (3.80-5.40) m/uL Hgb (11.4-16.0) gm/dL Hct (34.0-46.0) % RDW (11.5-15.5) % Eosinophils # (0-0.7) k/uL Potassium 5.7 H (3.5-5.1) mmol/L BUN 48 H (7-17) mg/dL Creatinine 2.54 H (0.52-1.04) mg/dL POC Glucose (mg/dL) (70-110) mg/dL Assessment and Plan Assessment: Acute on chronic hypoxemic respiratory failure secondary to an acute exacerbation of diastolic congestive heart failure. Recurrent left-sided pleural effusion secondary to above with previous thoracentesis x 2 in April and then May 2024, negative for malignancy. Status post left-sided thoracentesis 07/07/2024. History of CAD with previous bypass grafting. History of diastolic congestive heart failure. Diabetes mellitus. Hyperlipidemia. Hypertension. Chronic kidney disease. Atrial fibrillation anticoagulated with Eliquis. Previous permanent pacemaker implantation. Plan: Plan dated July 09, 2024. The patient is stable from the pulmonary standpoint. The patient is currently on 2 L with adequate saturations. The patient had a left-sided thoracentesis performed. About a liter of fluid was removed. The patient could be considered for possible discharge. Will leave that up to the primary service. No additional recommendations are made. I suspect the patient will have a recurrent effusion at some time, and will need thoracentesis again in the future . Time with Patient: Less than 30
--- NOTE | 2024-07-09 13:11 | P.DS ---
Providers Date of admission: 07/07/24 01:58 Expected date of discharge: 07/09/24 Attending physician: Zuri Garcia MD Consults: 07/07/24 02:03 Consult Physician Urgent Consulting Provider: [facility] Consult Reason/Comments: acute chf exacerbation Do you want consulting provider notified?: Yes Consult Physician Urgent Consulting Provider: Gentry Cagle Consult Reason/Comments: respiratory insuff, left pleural effusion Do you want consulting provider notified?: Yes [facility]: Discharge Diagnosis: Acute on chronic diastolic heart failure exacerbation Severe mitral regurgitation Acute on chronic hypoxic respiratory failure, resolved Left-sided pleural effusion s/p thoracentesis Hypertension Dyslipidemia History of CAD Chronic kidney disease stage IV 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 On presentation patient was on 4 L nasal cannula. Blood work showed hemoglobin of 8.8, baseline, creatinine of 2.77 slightly above baseline. Patient admitted for ac rincon on chronic diastolic heart failure exacerbation along with left-sided pleural effusion. Pulmonology and cardiology consulted. Patient started on IV Lasix. Also had thoracentesis with 950 cc fluid drained. Echocardiogram showed preserved LV size and systolic function, severe mitral regurgitation. Patient being discharged home with oral Lasix as well as continue antihypertensives. Follow-up with PCP and cardiology. Outpatient BMP and magnesium in 3 days. Patient seen and examined at bedside. Vital signs reviewed and stable. General: Nontoxic, no distress, appears at stated age, chronically debilitated, chronic Ordoñez Derm: Warm, dry Head: Atraumatic, normocephalic, symmetric Eyes: EOMI, no lid lag, anicteric sclera Mouth: No lip lesion, mucus membranes moist Cardiovascular: S1S2 reg, systolic murmur Lungs: Bibasilar rales, no accessory muscle use, supplemental oxygen Abdominal: Soft, nontender to palpation, no guarding, no appreciable organomegaly Ext: No gross muscle atrophy, trace peripheral edema, no contractures Neuro: CN II-XI grossly intact, no focal neuro deficits Psych: Alert, oriented, appropriate affect A total of 33 minutes of time were spent preparing this complex discharge summary. Patient was discharged on 07/09/2024 at 1306. Patient Condition at Discharge: Stable Plan - Discharge Summary Discharge Rx Participant: No New Discharge Prescriptions: New Furosemide [Lasix] 40 mg PO DAILY #60 tab amLODIPine [Norvasc] 7.5 mg PO DAILY #90 tab Spironolactone [Aldactone] 12.5 mg PO DAILY #60 tab Continue Ubidecarenone [Co Q-10] 30 mg PO DAILY calcitrioL 0.25 mcg PO SA Apixaban [Eliquis] 2.5 mg PO BID allopurinoL [Zyloprim] 100 mg PO DAILY Aspirin 81 mg PO DAILY 30 Days #30 tab Ondansetron Odt [Zofran ODT] 8 mg PO Q8HR PRN PRN Reason: Nausea Simvastatin [Zocor] 20 mg PO HS Cholecalciferol (Vitamin D3) [Vitamin D3 (50 Mcg = 2000 Iu)] 50 mcg PO DAILY Discontinued amLODIPine [Norvasc] 5 mg PO DAILY Torsemide [Demadex] 20 mg PO DAILY Discharge Medication List Simvastatin [Zocor] 20 mg PO HS 08/22/22 [History] Ubidecarenone [Co Q-10] 30 mg PO DAILY 09/06/23 [History] calcitrioL 0.25 mcg PO SA 11/17/23 [History] Apixaban [Eliquis] 2.5 mg PO BID 02/08/24 [History] allopurinoL [Zyloprim] 100 mg PO DAILY 05/06/24 [History] Aspirin 81 mg PO DAILY 30 Days #30 tab 05/20/24 [Rx] Cholecalciferol (Vitamin D3) [Vitamin D3 (50 Mcg = 2000 Iu)] 50 mcg PO DAILY 06/17/24 [History] Ondansetron Odt [Zofran ODT] 8 mg PO Q8HR PRN 06/17/24 [History] Furosemide [Lasix] 40 mg PO DAILY #60 tab 07/09/24 [Rx] Spironolactone [Aldactone] 12.5 mg PO DAILY #60 tab 07/09/24 [Rx] amLODIPine [Norvasc] 7.5 mg PO DAILY #90 tab 07/09/24 [Rx] Follow up Appointment(s)/Referral(s): Andriy Barnett MD [STAFF PHYSICIAN] - 1 Week Musa Feliciano MD [Primary Care Provider] - 1-2 days [facility] [NON-STAFF] - As Needed Ambulatory/Diagnostic Orders: Basic Metabolic Panel [LAB.AMB] Time Frame: 3 Days, Location: None Selected Magnesium [LAB.AMB] Time Frame: 3 Days, Location: None Selected Patient Instructions/Handouts: Heart Failure (DC) Activity/Diet/Wound Care/Special Instructions: Please see your PCP and road service locksmith. Please repeat blood work in 3 days. Discharge Disposition: HOME WITH HOME HEALTH SERVICES
== END 2024-07-09 15:33 | disposition home health service (06) | DRG 291 ==
LOC: EC 23:06 → 4SSUR 07-07 01:58
PROVIDERS: ADMIT Internal Medicine; ATTEND Internal Medicine
PROC: 0W9B3ZZ Drainage of Left Pleural Cavity, Percutaneous Approach (ICD-10-PCS; principal; 2024-07-07)
DX: I13.0 Hypertensive heart and chronic kidney disease with heart failure and stage 1 through stage 4 chronic kidney disease, or unspecified chronic kidney disease (principal); I50.33 Acute on chronic diastolic (congestive) heart failure; J96.21 Acute and chronic respiratory failure with hypoxia; I48.21 Permanent atrial fibrillation; N18.4 Chronic kidney disease, stage 4 (severe); J91.8 Pleural effusion in other conditions classified elsewhere; E11.22 Type 2 diabetes mellitus with diabetic chronic kidney disease; E78.5 Hyperlipidemia, unspecified; I27.22 Pulmonary hypertension due to left heart disease; I27.23 Pulmonary hypertension due to lung diseases and hypoxia; R33.8 Other retention of urine; E11.65 Type 2 diabetes mellitus with hyperglycemia; J44.9 Chronic obstructive pulmonary disease, unspecified; I25.10 Atherosclerotic heart disease of native coronary artery without angina pectoris; I34.0 Nonrheumatic mitral (valve) insufficiency; M10.9 Gout, unspecified; M40.209 Unspecified kyphosis, site unspecified; Z79.01 Long term (current) use of anticoagulants; Z79.4 Long term (current) use of insulin; Z79.82 Long term (current) use of aspirin; Z79.899 Other long term (current) drug therapy; Z95.0 Presence of cardiac pacemaker; Z95.1 Presence of aortocoronary bypass graft; Z95.3 Presence of xenogenic heart valve; Z99.81 Dependence on supplemental oxygen
CPT/HCPCS: 36415; 71045; 71046; 76604; 80048; 80053; 83036; 83605; 83735; 83880; 84484; 85025; 85610; 85730; 93005; 93308; 94760; 96374; 96375; 99285

== ENCOUNTER → 2024-07-12 | Outpatient (CLI) | payer MEDICARE ==
[2024-07-12 20:11] LABS: BUN/Creat Ratio 16.56 Ratio (12.00-20.00); Blood Urea Nitrogen 44.7 mg/dL (9.0-27.0); Carbon Dioxide 24.9 mmol/L (21.6-31.8); Chloride 101 mmol/L (96-109); Glucose 116 mg/dL (70-110); Magnesium 2.8 mg/dL (1.5-2.4); Potassium 4.6 mmol/L (3.5-5.5); Sodium 139 mmol/L (135-145)
== END | disposition home or self-care (01) ==
LOC: LABWHC1 13:06
PROVIDERS: ATTEND Student in an Organized Health Care Education/Training Program
DX: N18.9 Chronic kidney disease, unspecified (principal)
CPT/HCPCS: 36415; 80048; 83735

== ENCOUNTER 2024-07-18 13:21 | Emergency (ER) | payer MEDICARE ==
[2024-07-18 13:29] VITALS: RESP 18; TEMP 97.9
--- NOTE | 2024-07-18 13:50 | ED ---
Female Urogenital HPI - General Chief complaint: Urogenital Stated complaint: urogenital Time Seen by Provider: 07/18/24 13:30 Source: patient, EMS Mode of arrival: EMS - History of Present Illness Initial comments: 83-year-old female with history of chronic urinary retention who presents emergency department with Ordoñez catheter issues. Patient had a home care nurse come to her house yesterday and today to switch over her Ordoñez catheter. The nurses were unable to get it inserted. Today they called EMS as a last resort. Patient has a chronic Ordoñez. She denies any pain, hematuria, fevers. No issues stooling. No other alleviating, precipitating or modifying factors - Related Data Home Medications Medication Instructions Recorded Confirmed Simvastatin [Zocor] 20 mg PO HS 08/22/22 07/18/24 Ubidecarenone [Co Q-10] 30 mg PO DAILY 09/06/23 07/18/24 calcitrioL 0.25 mcg PO SA 11/17/23 07/18/24 Apixaban [Eliquis] 2.5 mg PO BID 02/08/24 07/18/24 allopurinoL [Zyloprim] 100 mg PO DAILY 05/06/24 07/18/24 Cholecalciferol (Vitamin D3) 50 mcg PO DAILY 06/17/24 07/18/24 [Vitamin D3 (50 Mcg = 2000 Iu)] Ondansetron Odt [Zofran ODT] 8 mg PO Q8HR PRN 06/17/24 07/18/24 Previous Rx's Medication Instructions Recorded Aspirin 81 mg PO DAILY 30 Days #30 tab 05/20/24 Furosemide [Lasix] 40 mg PO DAILY #60 tab 07/09/24 Spironolactone [Aldactone] 12.5 mg PO DAILY #60 tab 07/09/24 amLODIPine [Norvasc] 7.5 mg PO DAILY #90 tab 07/09/24 Allergies Allergy/AdvReac Type Severity Reaction Status Date / Time cephalexin Allergy Unknown Verified 07/12/24 14:03 ciprofloxacin [From Cipro] Allergy Unknown Verified 07/12/24 14:03 codeine Allergy Unknown Verified 07/12/24 14:03 Review of Systems ROS Statement: Those systems with pertinent positive or pertinent negative responses have been documented in the HPI. ROS Other: All systems not noted in ROS Statement are negative. Past Medical History Past Medical History: Coronary Artery Disease (CAD), Heart Failure, Diabetes Mellitus, Hyperlipidemia, Hypertension, Renal Disease Additional Past Medical History / Comment(s): pacemaker for complete heart block, AVR- pig History of Any Multi-Drug Resistant Organisms: None Reported Past Surgical History: Appendectomy, Cholecystectomy, Coronary Bypass/CABG, Hysterectomy, Pacemaker, Tonsillectomy Additional Past Surgical History / Comment(s): CABG x3 11 years Past Anesthesia/Blood Transfusion Reactions: No Reported Reaction Type of Cardiac Device: Permanent Pacemaker Device Placement Date:: 02/20/23 Past Psychological History: No Psychological Hx Reported Smoking Status: Never smoker Past Alcohol Use History: None Reported Past Drug Use History: None Reported - Past Family History Father History Unknown: Yes Family Medical History: COPD General Exam General appearance: alert, in no apparent distress Head exam: Present: atraumatic, normocephalic, normal inspection Eye exam: Present: normal appearance, PERRL, EOMI. Absent: scleral icterus, conjunctival injection, periorbital swelling ENT exam: Present: normal exam, mucous membranes moist Neck exam: Present: normal inspection. Absent: tenderness, meningismus, lymphadenopathy Respiratory exam: Present: normal lung sounds bilaterally. Absent: respiratory distress, wheezes, rales, rhonchi, stridor Cardiovascular Exam: Present: regular rate, normal rhythm, normal heart sounds. Absent: systolic murmur, diastolic murmur, rubs, gallop, clicks GI/Abdominal exam: Present: soft, normal bowel sounds. Absent: distended, tenderness, guarding, rebound, rigid Extremities exam: Present: normal inspection, full ROM, normal capillary refill. Absent: tenderness, pedal edema, joint swelling, calf tenderness Back exam: Present: normal inspection Neurological exam: Present: alert, oriented X3, CN II-XII intact Psychiatric exam: Present: normal affect, normal mood Skin exam: Present: warm, dry, intact, normal color. Absent: rash Course Vital Signs 07/18/24 07/18/24 13:22 14:39 Temperature 97.9 F Pulse Rate 62 81 Respiratory 18 18 Rate Blood Pressure 158/63 142/76 O2 Sat by Pulse 97 95 Oximetry Medical Decision Making - Medical Decision Making Was pt. sent in by a medical professional or institution (, PA, [facility], urgent care, hospital, or halfway...) When possible be specific @ -No Did you speak to anyone other than the patient for history (EMS, parent, family, police, friend...)? What history was obtained from this source @ -Spoke with EMS for history Did you review nursing and triage notes (agree or disagree)? Why? @ -I reviewed and agree with nursing and triage notes Were old charts reviewed (outside hosp., previous admission, EMS record, old EKG, old radiological studies, urgent care reports/EKG's, halfway records)? Report findings @ -No old charts were reviewed Differential Diagnosis (chest pain, altered mental status, abdominal pain women, abdominal pain men, vaginal bleeding, weakness, fever, dyspnea, syncope, headache, dizziness, GI bleed, back pain, seizure, CVA, palpatations, mental health, musculoskeletal)? @ -Urethral stricture, urethral trauma, UTI, hematuria EKG interpreted by me (3pts min.). @ -Not done X-rays interpreted by me (1pt min.). @ -None done CT interpreted by me (1pt min.). @ -None done U/S interpreted by me (1pt. min.). @ -None done What testing was considered but not performed or refused? (CT, X-rays, U/S, labs)? Why? @ -None What meds were considered but not given or refused? Why? @ -None Did you discuss the management of the patient with other professionals (professionals i.e. , PA, [facility], lab, RT, psych nurse, social insurance analyst, construction sales manager, teacher, targeting acquisition officer, case repairer)? Give summary @ -No Was smoking cessation discussed for >3mins.? @ -No Was critical care preformed (if so, how long)? @ -No Were there social determinants of health that impacted care today? How? (Homelessness, low income, unemployed, alcoholism, drug addiction, transportation, low edu. Level, literacy, decrease access to med. care, correction, rehab)? @ -No Was there de-escalation of care discussed even if they declined (Discuss DNR or withdrawal of care, Hospice)? DNR status @ -No What co-morbidities impacted this encounter? (DM, HTN, Smoking, COPD, CAD, Cancer, CVA, ARF, Chemo, Hep., AIDS, mental health diagnosis, sleep apnea, morbid obesity)? @ -Chronic urinary retention Was patient admitted / discharged? Hospital course, mention meds given and route, prescriptions, significant lab abnormalities, going to OR and other pertinent info. @ -Upon arrival patient seen and evaluated in room 30. Thorough history and physical exam was performed. Ordoñez catheter was inserted without issue. Patient will be transferred back at this time Undiagnosed new problem with uncertain prognosis? @ -No Drug Therapy requiring intensive monitoring for toxicity (Heparin, Nitro, Insulin, Cardizem)? @ -No Were any procedures done? @ -No Diagnosis/symptom? @ -Chronic urinary retention, need for Ordoñez catheter replacement, difficult Ordoñez insertion outpatient Acute, or Chronic, or Acute on Chronic? @ -Acute Uncomplicated (without systemic symptoms) or Complicated (systemic symptoms)? @ -Uncomplicated Side effects of treatment? @ -No Exacerbation, Progression, or Severe Exacerbation? @ -No Poses a threat to life or bodily function? How? (Chest pain, [place], [place], pneumonia, PE, COPD, DKA, ARF, appy, cholecystitis, CVA, Diverticulitis, Homicidal, Suicidal, threat to staff... and all critical care pts) @ -No - Lab Data Lab Results 07/18/24 Range/Units 13:55 Urine Color Colorless Urine Appearance Cloudy H (Clear) Urine pH 6.5 (5.0-8.0) Ur Specific Melvin 1.012 (1.001-1.035) Urine Protein 1+ H (Negative) Urine Glucose (UA) Negative (Negative) Urine Ketones Negative (Negative) Urine Blood Trace H (Negative) Urine Nitrite Negative (Negative) Urine Bilirubin Negative (Negative) Urine Urobilinogen <2.0 (<2.0) mg/dL Ur Leukocyte Esterase Large H (Negative) Urine RBC 4 (0-5) /hpf Urine WBC >182 H (0-5) /hpf Urine WBC Clumps Many H (None) /hpf Ur Squamous Epith Cells <1 (0-4) /hpf Urine Bacteria Occasional H (None) /hpf Urine Mucus Rare H (None) /hpf Disposition Clinical Impression: Ordoñez catheter problem Disposition: HOME SELF-CARE Condition: Stable Instructions (If sedation given, give patient instructions): Chronic Urinary Retention in Women (ED) Is patient prescribed a controlled substance at d/c from ED?: No Referrals: Joey Mccormack [Medical Doctor] - 1-2 days Time of Disposition: 13:50
[2024-07-18 14:16] LABS: Appearance,Urine Cloudy (Clear); Bacteria,Urine Occasional /hpf; Bilirubin,Urine Negative (Negative); Blood,Urine Trace (Negative); Color,Urine Colorless; Glucose,Urine (UA) Negative (Negative); Ketones,Urine Negative (Negative); Leukocyte Esterase,Urine Large (Negative); Mucus,Urine Rare /hpf; Nitrite,Urine Negative (Negative); PH, Urine 6.5 (5.0-8.0); Protein,Urine 1+ (Negative); RBC,Urine 4 /hpf (0-5); Specific Gravity,Urine 1.012 (1.001-1.035); Squamous Epithelial Cell,Urine <1 /hpf (0-4); Urobilinogen,Urine <2.0 mg/dL (<2.0); WBC,Urine >182 /hpf (0-5)
[2024-07-18 14:41] VITALS: BP 142/76; PULSE 81
== END 2024-07-18 14:39 | disposition home or self-care (01) ==
LOC: EC 13:21
CPT/HCPCS: 51702; 81001; 99283

== ENCOUNTER 2024-07-23 20:51 | Inpatient (IN) | payer MEDICARE ==
[2024-07-23] MEDS: NITROGLYCERIN SL TABS 0.4 MG TAB SUBLINGUAL STA ×3 (21:24→21:44)
--- NOTE | 2024-07-23 21:25 | ED ---
General Adult HPI - General Chief complaint: Abdominal Pain Stated complaint: VALENTÍN Time Seen by Provider: 07/23/24 21:04 Source: patient, EMS - History of Present Illness Initial comments: Patient is an 83-year-old female past medical history of CHF, on 2 L oxygen at baseline presenting today for sudden onset shortness of breath and lower abdominal pain. Patient states that 2 hours prior to arrival she began experiencing difficulty in breathing and lower abdominal pressure. Patient has indwelling Ordoñez catheter and states it has been draining. She does not feel as though she is short of breath because of her abdominal pain. She has had a dry cough but denies any sputum production or hemoptysis. She denies any chest pain. Endorses bilateral lower extremity swelling. Chronic left upper extre mity swelling. Denies lightheadedness dizziness or numbness. Denies nausea vomiting or diarrhea. Denies fevers, endorses chills. History limited by patient's tachypnea. - Related Data Home Medications Medication Instructions Recorded Confirmed Ubidecarenone [Co Q-10] 30 mg PO DAILY 09/06/23 07/24/24 calcitrioL 0.25 mcg PO SA 11/17/23 07/24/24 Apixaban [Eliquis] 2.5 mg PO BID 02/08/24 07/24/24 allopurinoL [Zyloprim] 100 mg PO DAILY 05/06/24 07/24/24 Cholecalciferol (Vitamin D3) 50 mcg PO DAILY 06/17/24 07/24/24 [Vitamin D3 (50 Mcg = 2000 Iu)] Ondansetron Odt [Zofran ODT] 8 mg PO Q8HR PRN 06/17/24 07/24/24 Previous Rx's Medication Instructions Recorded Aspirin 81 mg PO DAILY 30 Days #30 tab 05/20/24 Furosemide [Lasix] 40 mg PO DAILY #60 tab 07/09/24 Spironolactone [Aldactone] 12.5 mg PO DAILY #60 tab 07/09/24 amLODIPine [Norvasc] 7.5 mg PO DAILY #90 tab 07/09/24 DAPTOmycin [Cubicin] 600 mg IV Q48H #20 each 08/02/24 Allergies Allergy/AdvReac Type Severity Reaction Status Date / Time cephalexin Allergy Unknown Verified 07/24/24 08:02 ciprofloxacin [From Cipro] Allergy Unknown Verified 07/24/24 08:02 codeine Allergy Unknown Verified 07/24/24 08:02 Review of Systems ROS Statement: Those systems with pertinent positive or pertinent negative responses have been documented in the HPI. Limitations: ROS unobtainable due to patients medical condition Past Medical History Past Medical History: Coronary Artery Disease (CAD), Heart Failure, Diabetes Mellitus, Hyperlipidemia, Hypertension, Renal Disease Additional Past Medical History / Comment(s): pacemaker for complete heart block, AVR- pig History of Any Multi-Drug Resistant Organisms: None Reported Past Surgical History: Appendectomy, Cholecystectomy, Coronary Bypass/CABG, Hysterectomy, Pacemaker, Tonsillectomy Additional Past Surgical History / Comment(s): CABG x3 11 years Past Anesthesia/Blood Transfusion Reactions: No Reported Reaction Type of Cardiac Device: Permanent Pacemaker Device Placement Date:: 02/20/23 Past Psychological History: No Psychological Hx Reported Smoking Status: Never smoker Past Alcohol Use History: None Reported Past Drug Use History: None Reported - Past Family History Father History Unknown: Yes Family Medical History: COPD General Exam - General Exam Comments Initial Comments: PE: CONSTITUTIONAL: Moderate distress, tachypnea, chronically ill-appearing SKIN: Warm, dry, no jaundice, hives or petechiae EYES: Pupils are equally round, extraocular movements intact without nystagmus, clear conjunctiva, non-icteric sclera HENT: Normocephalic, atraumatic, moist mucus membranes, oropharynx clear without exudates NECK: , Full range of motion, normal appearance PULMONARY: Crackles in the left lower and midlung base, crackles in the right lung base, tachypnea, accessory muscle use with supraclavicular retractions, no wheezes or rhonchi, decreased excursionno stridor CARDIOVASCULAR: Regular rate, rhythm, normal S1 and S2. No appreciated murmurs, rubs or gallops. Strong radial pulses with intact distal perfusion. Bilateral 2-3+ pitting edema in the lower extremities GASTROINTESTINAL: Soft, tender elevation of suprapubic region, abdomen soft throughout with exception of firm in suprapubic region, non-distended, bowel sounds throughout, no rebound or guarding. No hepatosplenomegaly GENITOURINARY: MUSCULOSKELETAL: Left upper extremity 2+ edema extremities have no gross deformity, redness, or swelling. No calf swelling ot TTP. NEUROLOGIC:_a/o x 3, GCS 15, normal mentation and speech. Moves all extremities x 4 without motor or sensory deficit PSYCHIATRIC:_normal mood and affect, thought process is clear and linear Course Vital Signs 07/23/24 07/23/24 07/23/24 20:59 21:27 21:36 Temperature 98.4 F Pulse Rate 60 Pulse Rate [ Pulse Oximetery ] Respiratory 18 Rate Blood Pressure 145/90 126/81 119/43 Blood Pressure [Right Arm] O2 Sat by Pulse 94 L Oximetry 07/23/24 07/23/24 07/24/24 21:43 22:05 00:12 Temperature Pulse Rate 60 60 Pulse Rate [ Pulse Oximetery ] Respiratory 18 18 Rate Blood Pressure 142/49 132/65 138/65 Blood Pressure [Right Arm] O2 Sat by Pulse 100 100 Oximetry 07/24/24 07/24/24 07/24/24 01:19 03:27 05:37 Temperature Pulse Rate 60 60 60 Pulse Rate [ Pulse Oximetery ] Respiratory 18 16 18 Rate Blood Pressure 124/60 121/68 105/78 Blood Pressure [Right Arm] O2 Sat by Pulse 100 100 100 Oximetry 07/24/24 07/24/24 07/24/24 06:17 07:47 09:34 Temperature 97.7 F 97.1 F L Pulse Rate 60 60 61 Pulse Rate [ Pulse Oximetery ] Respiratory 16 20 18 Rate Blood Pressure 153/77 113/97 132/63 Blood Pressure [Right Arm] O2 Sat by Pulse 100 100 100 Oximetry 07/24/24 07/24/24 07/24/24 11:18 13:13 14:52 Temperature Pulse Rate 60 60 60 Pulse Rate [ Pulse Oximetery ] Respiratory 20 20 18 Rate Blood Pressure 134/59 137/69 128/54 Blood Pressure [Right Arm] O2 Sat by Pulse 100 100 100 Oximetry 07/24/24 07/24/24 07/25/24 19:00 20:32 00:10 Temperature 96.7 F L Pulse Rate 60 60 60 Pulse Rate [ Pulse Oximetery ] Respiratory 16 13 16 Rate Blood Pressure 128/54 139/65 135/62 Blood Pressure [Right Arm] O2 Sat by Pulse 99 96 98 Oximetry 07/25/24 00:47 Temperature 98.2 F Pulse Rate Pulse Rate [ 60 Pulse Oximetery ] Respiratory 18 Rate Blood Pressure Blood Pressure 143/54 [Right Arm] O2 Sat by Pulse 99 Oximetry - Reevaluation(s) Reevaluation #1: Bedside ultrasound showed B-lines bilaterally, otherwise limited by patient's positioning tachypnea, patient cannot lay flat due to difficulty in breathing. Patient given 1 single sublingual nitroglycerin and endorsed improvement in her symptoms. Again discussed with the patient my concern that she will become. Due to her difficulty in breathing to continue and to potentially stop breathing and encouraged her to trial BiPAP. Patient again declined. 07/23/24 21:42 Reevaluation #2: 07/23/24 22:36 On reassessment patient is still mildly tachypneic however does appear some improved status post sublingual nitroglycerin and states that her symptoms improved with sublingual nitroglycerin administration. Due to continued tachypnea I did again discuss with patient BiPAP however she adamantly declines this. Blood pressures 130 systolic, I will initiate a nitroglycerin drip for acute on chronic decompensated heart failure Medical Decision Making - Medical Decision Making Was pt. sent in by a medical professional or institution (, PA, APPLIANCE SALES ASSOCIATE, urgent care, hospital, or retirement...) When possible be specific @ -No Did you speak to anyone other than the patient for history (EMS, parent, family, police, friend...)? What history was obtained from this source @ -No Did you review nursing and triage notes (agree or disagree)? Why? @ -I reviewed and agree with nursing and triage notes Were old charts reviewed (outside hosp., previous admission, EMS record, old EKG, old radiological studies, urgent care reports/EKG's, retirement records)? Report findings @ -Reviewed old charts, patient was here 3 days ago for Ordoñez catheter exchange, was recently admitted to the hospital 07/09/2024 for CHF exacerbation, on 40 mg Lasix. during that admission patient required thoracentesis where 950 cc of fluid was drained from right lung. Differential Diagnosis (chest pain, altered mental status, abdominal pain women, abdominal pain men, vaginal bleeding, weakness, fever, dyspnea, syncope, headache, dizziness, GI bleed, back pain, seizure, CVA, palpatations, mental health, musculoskeletal)? @ -Differential Dyspnea: Coronary syndrome, arrhythmia, tamponade, asthma, COPD, pneumonia, pneumothorax, pulmonary effusion, CHF exacerbation, anemia this is not meant to be an all- inclusive list. Differential Abdominal Pain Women: Appendicitis, Cholecystitis, diverticulosis, pancreatitis, hepatitis, UTI, gastroenteritis, AAA, incarcerated hernia, bowel obstruction, urinary retention, constipation, inflammatory bowel, hepatitis this is not meant to be an all- inclusive list EKG interpreted by me (3pts min.). @Electronic ventricular pacemaker, rate 59 bpm, QRS duration 155 ms, prolonged QTc 456 ms left axis deviation no obvious ST segment elevation or depression; EKG performed on 05/20/2024, ST segment V2 less deeply inverted but no ST elevation. otherwise no changes from prior X-rays interpreted by me (1pt min.). @ -Cardiomegaly, bilateral pleural effusions CT interpreted by me (1pt min.). @ -None done U/S interpreted by me (1pt. min.). @ -None done What testing was considered but not performed or refused? (CT, X-rays, U/S, labs)? Why? @ -None What meds were considered but not given or refused? Why? @ -None Did you discuss the management of the patient with other professionals (professionals i.e. , PA, APPLIANCE SALES ASSOCIATE, lab, RT, psych nurse, social sciences research scientist, boom crane operator, teacher, public affairs officer, case resource manager)? Give summary @ -No Was smoking cessation discussed for >3mins.? @ -No Was critical care preformed (if so, how long)? @ -Yes, 60 minutes Were there social determinants of health that impacted care today? How? (Homelessness, low income, unemployed, alcoholism, drug addiction, transportation, low edu. Level, literacy, decrease access to med. care, usp, rehab)? @ -No Was there de-escalation of care discussed even if they declined (Discuss DNR or withdrawal of care, Hospice)? @ -Patient DNR/DNI What co-morbidities impacted this encounter? (DM, HTN, Smoking, COPD, CAD, Cancer, CVA, ARF, Chemo, Hep., AIDS, mental health diagnosis, sleep apnea, morbid obesity)? @ -CHF Was patient admitted / discharged? Hospital course, mention meds given and route, prescriptions, significant lab abnormalities, going to OR and other pe rtinent info. @ -Hospital course Patient seen and assessed. On my assessment patient is in moderate distress, tachypneic and ill-appearing. Nontoxic. She is awake and alert. Crackles in the left lower and mid lung base. Right lower lung base as well. Bilateral pitting edema in addition to left upper extremity that she states is chronic. Abdomen is soft with the exception of firmness in the suprapubic region and tenderness palpation here. No guarding. Active bowel sounds throughout. Bed side bladder scan showed 30 cc urine in the bladder and Ordoñez draining clear yellow urine. Currently 2 L home oxygen patient 95% however remains tachypneic. Did report to RN that patient's initial systolic blood pressure for them was 190 systolic, they gave her 1 sublingual nitroglycerin and is currently 145 systolic. Patient denies feeling improvement with the sublingual nitroglycerin. I discussed with the patient that I strongly feel she needs BiPAP however she adamantly declines this stating she does not want it. I offered her anxiolytic so that she could tolerate BiPAP however she continued to decline. I discussed with her that she if she continues to work this hard she may require intubation. Patient does not want to be intubated and is DNI. Ordered additional sublingual nitroglycerin as I highly suspect flash pulmonary edema, portable chest x-ray, CT Abdo pelvis without contrast, comprehensive labs. EKG reviewed and did not show signs of STEMI. Additionally ordered for 40 mg patient's home IV Lasix. Hold off on narcotic pain control at this point to avoid respiratory depression . Reviewed patient's labs, significant for a white blood cell count of 14.3, hemoglobin 8.8 which appears to be baseline for the patient, potassium of 6.2 however this was noted to be hemolyzed so this will be redrawn, sodium 130, creatinine appears to be at baseline at 2.39 lactic 2.1 I suspect secondary to increased work of breathing as opposed to acute intra-abdominal infectious pr ocess, however due to infiltrate noted on chest x-ray and elevated white blood cell count blood culture was ordered as well as antibiotics. Single blood culture ordered given blood culture shortage in the hospital and current hospital policy. On reevaluation patient seated in recliner, she still does appear somewhat tachypneic however she states that her work of breathing is improved. Nitroglyc naveed drip was canceled due to improved work of breathing. I discussed with patient need for CT abdomen pelvis without contrast and that she would need to lie flat for this however she states she cannot do that at this time. Given abdomen is soft with only suprapubic tenderness and fullness I suspect symptoms most likely secondary to UTI, of note patient's Ordoñez catheter was flushed with ease and continues to drain yellow urine. Plan for admission at this point for CHF exacerbation. Discussed case with Dr. Garcia, [facility] who kindly accepts patient for admission. Patient admitted in stable but guarded condition. I did update Dr. Garcia to pending CT abdomen pelvis. Of note patient did not come with a medication list however I reviewed discharge summary from 07/09/2024 and performed med rec based on this. Patient's home meds ordered. Undiagnosed new problem with uncertain prognosis? @ -No Drug Therapy requiring intensive monitoring for toxicity (Heparin, Nitro, Insulin, Cardizem)? @ -No Were any procedures done? @ -No Diagnosis/symptom? @ -Acute on Chronic CHF exacerbation, pneumonia, abdominal pain Acute, or Chronic, or Acute on Chronic? @Acute on chronic Uncomplicated (without systemic symptoms) or Complicated (systemic symptoms)? @Complicated Side effects of treatment? @ -No Exacerbation, Progression, or Severe Exacerbation? @ -Severe exacerbation Poses a threat to life or bodily function? How? (Chest pain, USA, OR, pneumonia, PE, COPD, DKA, ARF, appy, cholecystitis, CVA, Diverticulitis, Homicidal, Suicidal, threat to staff... and all critical care pts) @ -Yes, patient with increased work of breathing and O2 requirements. - Lab Data Result diagrams: 08/02/24 06:30 08/02/24 06:30 Lab Results 07/23/24 07/23/24 07/23/24 Range/Units 21:34 21:34 21:34 WBC 14.3 H (3.8-10.6) k/uL RBC 2.81 L (3.80-5.40) m/uL Hgb 8.8 L (11.4-16.0) gm/dL Hct 28.2 L (34.0-46.0) % MCV 100.3 H (80.0-100.0) fL MCH 31.3 (25.0-35.0) pg MCHC 31.2 (31.0-37.0) g/dL RDW 19.4 H (11.5-15.5) % Plt Count 383 (150-450) k/uL MPV 9.4 Neutrophils % 82 % Lymphocytes % 9 % Monocytes % 4 % Eosinophils % 3 % Basophils % 0 % Neutrophils # 11.8 H (1.3-7.7) k/uL Lymphocytes # 1.3 (1.0-4.8) k/uL Monocytes # 0.6 (0-1.0) k/uL Eosinophils # 0.4 (0-0.7) k/uL Basophils # 0.0 (0-0.2) k/uL Hypochromasia Moderate Anisocytosis Slight Macrocytosis Moderate PT 10.8 (10.0-12.5) sec INR 1.0 (<1.2) APTT 26.0 (22.0-30.0) sec Sodium 130 L (137-145) mmol/L Potassium 6.2 H* (3.5-5.1) mmol/L Chloride 96 L (98-107) mmol/L Carbon Dioxide 25 (22-30) mmol/L Anion Gap 9 mmol/L BUN 49 H (7-17) mg/dL Creatinine 2.39 H (0.52-1.04) mg/dL Est GFR (CKD-EPI)AfAm 21 (>60 ml/min/1.73 sqM) Est GFR (CKD-EPI)NonAf 18 (>60 ml/min/1.73 sqM) Glucose 319 H (74-99) mg/dL Lactic Ac Sepsis Rflx Plasma Lactic Acid [place] (0.7-2.0) mmol/L Calcium 8.6 (8.4-10.2) mg/dL Magnesium 1.9 (1.6-2.3) mg/dL Total Bilirubin 0.7 (0.2-1.3) mg/dL AST 51 H (14-36) U/L ALT 20 (4-34) U/L Alkaline Phosphatase 351 H (38-126) U/L Troponin I (0.000-0.034) ng/mL NT-Pro-B Natriuret Pep 8640 pg/mL Total Protein 6.2 L (6.3-8.2) g/dL Albumin 3.2 L (3.5-5.0) g/dL Lipase 139 (23-300) U/L 07/23/24 07/23/24 07/23/24 Range/Units 21:34 21:34 22:42 WBC (3.8-10.6) k/uL RBC (3.80-5.40) m/uL Hgb (11.4-16.0) gm/dL Hct (34.0-46.0) % MCV (80.0-100.0) fL MCH (25.0-35.0) pg MCHC (31.0-37.0) g/dL RDW (11.5-15.5) % Plt Count (150-450) k/uL MPV Neutrophils % % Lymphocytes % % Monocytes % % Eosinophils % % Basophils % % Neutrophils # (1.3-7.7) k/uL Lymphocytes # (1.0-4.8) k/uL Monocytes # (0-1.0) k/uL Eosinophils # (0-0.7) k/uL Basophils # (0-0.2) k/uL Hypochromasia Anisocytosis Macrocytosis PT (10.0-12.5) sec INR (<1.2) APTT (22.0-30.0) sec Sodium (137-145) mmol/L Potassium (3.5-5.1) mmol/L Chloride (98-107) mmol/L Carbon Dioxide (22-30) mmol/L Anion Gap mmol/L BUN (7-17) mg/dL Creatinine (0.52-1.04) mg/dL Est GFR (CKD-EPI)AfAm (>60 ml/min/1.73 sqM) Est GFR (CKD-EPI)NonAf (>60 ml/min/1.73 sqM) Glucose (74-99) mg/dL Lactic Ac Sepsis Rflx Y Plasma Lactic Acid [place] 2.1 H* (0.7-2.0) mmol/L Calcium (8.4-10.2) mg/dL Magnesium (1.6-2.3) mg/dL Total Bilirubin (0.2-1.3) mg/dL AST (14-36) U/L ALT (4-34) U/L Alkaline Phosphatase (38-126) U/L Troponin I 0.015 (0.000-0.034) ng/mL NT-Pro-B Natriuret Pep pg/mL Total Protein (6.3-8.2) g/dL Albumin (3.5-5.0) g/dL Lipase (23-300) U/L 07/23/24 Range/Units 23:22 WBC (3.8-10.6) k/uL RBC (3.80-5.40) m/uL Hgb (11.4-16.0) gm/dL Hct (34.0-46.0) % MCV (80.0-100.0) fL MCH (25.0-35.0) pg MCHC (31.0-37.0) g/dL RDW (11.5-15.5) % Plt Count (150-450) k/uL MPV Neutrophils % % Lymphocytes % % Monocytes % % Eosinophils % % Basophils % % Neutrophils # (1.3-7.7) k/uL Lymphocytes # (1.0-4.8) k/uL Monocytes # (0-1.0) k/uL Eosinophils # (0-0.7) k/uL Basophils # (0-0.2) k/uL Hypochromasia Anisocytosis Macrocytosis PT (10.0-12.5) sec INR (<1.2) APTT (22.0-30.0) sec Sodium (137-145) mmol/L Potassium 5.5 H (3.5-5.1) mmol/L Chloride (98-107) mmol/L Carbon Dioxide (22-30) mmol/L Anion Gap mmol/L BUN (7-17) mg/dL Creatinine (0.52-1.04) mg/dL Est GFR (CKD-EPI)AfAm (>60 ml/min/1.73 sqM) Est GFR (CKD-EPI)NonAf (>60 ml/min/1.73 sqM) Glucose (74-99) mg/dL Lactic Ac Sepsis Rflx Plasma Lactic Acid [place] (0.7-2.0) mmol/L Calcium (8.4-10.2) mg/dL Magnesium (1.6-2.3) mg/dL Total Bilirubin (0.2-1.3) mg/dL AST (14-36) U/L ALT (4-34) U/L Alkaline Phosphatase (38-126) U/L Troponin I (0.000-0.034) ng/mL NT-Pro-B Natriuret Pep pg/mL Total Protein (6.3-8.2) g/dL Albumin (3.5-5.0) g/dL Lipase (23-300) U/L Disposition Clinical Impression: Acute on chronic congestive heart failure, Pneumonia, Abdominal pain Disposition: ADMITTED IP TO THIS HOSP Condition: Stable
[2024-07-23] MEDS: FUROSEMIDE 10 MG/ML 4 ML VIAL IV STA (21:33)
--- NOTE | 2024-07-23 22:05 | XR ---
EXAMINATION TYPE: XR chest 1V portable DATE OF EXAM: 07/23/2024 COMPARISON: 07/07/2024 INDICATION: Tachypnea TECHNIQUE: Single frontal view of the chest is obtained. FINDINGS: The heart size is enlarged. The pulmonary vasculature is normal. Left lower lobe infiltrate is present. Pacemaker overlies left chest. Sternotomy wires are in the mid line. Degenerative changes are noted at the bilateral shoulders. IMPRESSION: 1. Cardiomegaly. 2. Left lower lobe infiltrate. Correlate for pneumonia or atelectasis. Small effusion may be present. [facility], Workstation: [facility], 07/23/2024 10:03 PM
[2024-07-23 22:08] LABS: Anisocytosis Slight; Basophils % (A) 0 %; Eosinophils # (A) 0.4 k/uL (0-0.7); Eosinophils % (A) 3 %; HCT 28.2 % (34.0-46.0); HGB 8.8 gm/dL (11.4-16.0); Hypochromasia Moderate; Lymphocytes # (A) 1.3 k/uL (1.0-4.8); Lymphocytes % (A) 9 %; MCH 31.3 pg (25.0-35.0); MCHC 31.2 g/dL (31.0-37.0); MCV 100.3 fL (80.0-100.0); Macrocytosis Moderate; Mean Platelet Volume 9.4; Monocytes # (A) 0.6 k/uL (0-1.0); Monocytes % (A) 4 %; Neutrophils # (A) 11.8 k/uL (1.3-7.7); Neutrophils % (A) 82 %; Platelet Count 383 k/uL (150-450); RBC 2.81 m/uL (3.80-5.40); RDW 19.4 % (11.5-15.5); WBC 14.3 k/uL (3.8-10.6)
[2024-07-23 22:22] LABS: ALT 20 U/L (4-34); African American GFR (CKD) 21 (>60 ml/min/1.73 sqM); Anion Gap 9 mmol/L; Blood Urea Nitrogen 49 mg/dL (7-17); Calcium 8.6 mg/dL (8.4-10.2); Carbon Dioxide 25 mmol/L (22-30); Chloride 96 mmol/L (98-107); Glucose 319 mg/dL (74-99); Lipase 139 U/L (23-300); Non-African American GFR(CKD) 18 (>60 ml/min/1.73 sqM); Sodium 130 mmol/L (137-145); Total Bilirubin 0.7 mg/dL (0.2-1.3)
[2024-07-23 22:28] LABS: Prothrombin Time 10.8 sec (10.0-12.5)
[2024-07-23 22:31] LABS: NT-Pro-B-Type Natriuretic Pept 8640 pg/mL
[2024-07-23 22:40] LABS: AST 51 U/L (14-36); Albumin 3.2 g/dL (3.5-5.0); Alkaline Phosphatase 351 U/L (38-126); Magnesium 1.9 mg/dL (1.6-2.3); Potassium 6.2 mmol/L (3.5-5.1); Total Protein 6.2 g/dL (6.3-8.2)
[2024-07-23] MEDS: CALCIUM GLUCONATE IN NACL 1 GM in SALINE 1 100ML.BAG IVPB ONE (23:31)
[2024-07-23] MEDS: NITROGLYCERIN-D5W PMX 50 MG in DEXTROSE/WATER 1 250ML.BAG IV ONE (23:31)
[2024-07-23] MEDS: DEXTROSE 50% SYRINGE 50 ML IVP ONE (23:32)
[2024-07-23] MEDS: INSULIN REGULAR 100 UNIT/ML VIAL (IV) IV ONE (23:32)
[2024-07-24 00:58] LABS: Amorphous Sediment,Urine Few /hpf; Appearance,Urine Cloudy (Clear); Bacteria,Urine Many /hpf; Bilirubin,Urine Negative (Negative); Blood,Urine Small (Negative); Color,Urine Light Yellow; Glucose,Urine (UA) Negative (Negative); Granular Casts,Urine 9 /lpf (0); Hyaline Casts,Urine 26 /lpf (0-2); Ketones,Urine Negative (Negative); Leukocyte Esterase,Urine Large (Negative); Mucus,Urine Occasional /hpf; Nitrite,Urine Negative (Negative); Protein,Urine 1+ (Negative); RBC,Urine 15 /hpf (0-5); Specific Gravity,Urine 1.012 (1.001-1.035); Squamous Epithelial Cell,Urine 1 /hpf (0-4); Urobilinogen,Urine <2.0 mg/dL (<2.0); WBC,Urine >182 /hpf (0-5)
[2024-07-24] MEDS: AZITHROMYCIN 500 MG in SODIUM CHLORIDE 0.9% 250 ML IVPB STA (01:41)
--- NOTE | 2024-07-24 03:59 | P.HPIM ---
History of Present Illness H&P Date: 07/24/24 Chief Complaint: Shortness of breath Patient is a 83-year-old female with heart failure, COPD on home oxygen 2 L presented to the ED with shortness of breath and lower abdominal pain. The patient states shortness of breath started earlier today she is accompanied with a dry cough, does not have phlegm production. She prefers to sleep in a recliner with her legs hanging down as the dyspnea is worse when she is lying down. She also has lower abdominal pain with a severity of 5 out of 10. The pain does not radiate anywhere. The patient also complains of chills and 1 episode of vomiting. She was recently admitted here with similar symptoms and at the time had left-sided thoracentesis and nearly 1 L of fluid was removed. Denies nausea, diarrhea, chest pain, palpitation, fever, hemoptysis, blood in the urine or stool, dysuria. ED workup revealed proBNP 8640, troponin 0.015, lactic acid 2.1, WBC 14.3, chest x-ray that shows cardiomegaly, left lower lobe infiltrate, small effusion present. UA was positive for large leukocyte esterase, more than 182 WBC, many WBC clumps, occasional mucus, many bacteria, 26 hyaline cast, 1+ protein and cloudy appearance. She was treated with azithromycin, calcium gluconate, Rocephin, Lasix, nitroglycerin sublingual tablets in the ED Review of systems: Pertinent positives and negatives as discussed in HPI, a complete review of systems was performed and all other systems are negative. PMH: CAD, DM, hyperlipidemia, hypertension PSH: Appendectomy, cholecystectomy, CABG FMH: CAD Allergies: Cephalexin, ciprofloxacin Social history: Tobacco: Never smoker Alcohol: Denies use Recreational drugs: Denies use Travel: No recent travel history Sick contacts: None Physical examination: Vitals: T 98.4 Fahrenheit, P 60 bpm, RR 18, BP 145/90, O2 sat 94% with 2 L nasal cannula General: Mild distress, appears at stated age, normal BMI Derm: venous stasis in LE b/l, warm Head: atraumatic, normocephalic, symmetric Eyes: EOMI, anicteric sclera ENT: Nose and ears atraumatic Mouth: no lip lesion, mucus membranes moist Cardiovascular: S1S2 reg, no murmur, 2+ bilateral pitting edema Lungs: Diminished lung sounds, no accessory muscle use Abdominal: soft, nontender to palpation, no guarding Ext: no gross muscle atrophy, no contractures, Neuro: CN II-XI grossly intact, no gross focal neuro deficits Psych: Alert, oriented, appropriate affect Assessment/Plan: Patient is an 83-year-old female with CHF and COPD on home oxygen 2 L presented to the ED with shortness of breath and lower abdominal pain. Case discussed with the ED provider and admission accepted for CHF exacerbation and UTI. #. Acute on chronic diastolic heart failure exacerbation proBNP 8640, troponin 0.015 Chest x-ray shows left lower lobe infiltrate, small effusion IV Lasix 40 mg twice daily EKG: Atrial fibrillation, ventricular rate 59 bpm, QTc 456 ms unchanged from before 07/20/24 Strict intake/output Daily weights Cardiac monitoring Supplemental oxygen as required, currently on 4 L oxygen by nasal cannula Cardiology and cardiac rehab, dietitian consulted #. UTI Lactic acid 2.1, WBC 14.3 UA was positive for large leukocyte esterase, more than 182 WBC, many WBC clumps, occasional mucus, many bacteria, 26 hyaline cast, 1+ protein and cloudy appearance. Urine catheter management every [address] abdomen pelvis without contrast ordered Blood culture, urine culture ordered s/p Rocephin 2 g in the ED continue with rocephine 1 gm IvpB daily #. Hyperkalemia Potassium 6.2 Received calcium gluconate 1 g IVPB once in the ED Potassium now 5.5 Monitor BMP #. CKD stage IV BUN 49, creatinine 2.39, GFR 18 at baseline Correct electrolytes as needed Monitor BMP #. Chronic hypoxic respiratory failure Underlying COPD Lactic acid 2.1, WBC 14.3 Chest x-ray shows left lower lobe infiltrate, small effusion Supplemental oxygen as required #. CAD Hypertension Continue home meds amlodipine 7.5 mg p.o. daily, aspirin 81 mg p.o. daily, spironolactone 12.5 mg p.o. daily #. Chronic A-fib on Eliquis Continue with Eliquis 2.5 mg p.o. twice daily #. Normocytic anemia crhonic stable Hemoglobin 8.8, MCV 100 Monitor CBC #. Type 2 diabetes Glucose 319 Insulin sliding scale and glucose monitoring Monitor BMP #. Hyperlipidemia Continue atorvastatin 10 mg p.o. at bedtime #. History of gout Continue allopurinol 50 mg p.o. every 48 hours F:None E: Replete as required N: Heart healthy diet A: Bedrest DVT prophylaxis: Eliquis 2.5 mg p.o. twice daily The patient is admitted with an anticipated more than 2 midnight stay for evaluation of shortness of breath CODE STATUS: Full code Discussed with: Patient Anticipated discharge place: Home Past Medical History Past Medical History: Coronary Artery Disease (CAD), Heart Failure, Diabetes Mellitus, Hyperlipidemia, Hypertension, Renal Disease Additional Past Medical History / Comment(s): pacemaker for complete heart block, AVR- pig History of Any Multi-Drug Resistant Organisms: None Reported Past Surgical History: Appendectomy, Cholecystectomy, Coronary Bypass/CABG, Hysterectomy, Pacemaker, Tonsillectomy Additional Past Surgical History / Comment(s): CABG x3 11 years Past Anesthesia/Blood Transfusion Reactions: No Reported Reaction Type of Cardiac Device: Permanent Pacemaker Device Placement Date:: 02/20/23 Past Psychological History: No Psychological Hx Reported Smoking Status: Never smoker Past Alcohol Use History: None Reported Past Drug Use History: None Reported - Past Family History Father History Unknown: Yes Family Medical History: COPD Medications and Allergies Home Medications Medication Instructions Recorded Confirmed Type Simvastatin [Zocor] 20 mg PO HS 08/22/22 07/18/24 History Ubidecarenone [Co Q-10] 30 mg PO DAILY 09/06/23 07/18/24 History calcitrioL 0.25 mcg PO SA 11/17/23 07/18/24 History Apixaban [Eliquis] 2.5 mg PO BID 02/08/24 07/18/24 History allopurinoL [Zyloprim] 100 mg PO DAILY 05/06/24 07/18/24 History Aspirin 81 mg PO DAILY 30 Days #30 tab 05/20/24 07/18/24 Rx Cholecalciferol (Vitamin D3) 50 mcg PO DAILY 06/17/24 07/18/24 History [Vitamin D3 (50 Mcg = 2000 Iu)] Ondansetron Odt [Zofran ODT] 8 mg PO Q8HR PRN 06/17/24 07/18/24 History Furosemide [Lasix] 40 mg PO DAILY #60 tab 07/09/24 07/18/24 Rx Spironolactone [Aldactone] 12.5 mg PO DAILY #60 tab 07/09/24 07/18/24 Rx amLODIPine [Norvasc] 7.5 mg PO DAILY #90 tab 07/09/24 07/18/24 Rx Allergies Allergy/AdvReac Type Severity Reaction Status Date / Time cephalexin Allergy Unknown Verified 07/12/24 14:03 ciprofloxacin [From Cipro] Allergy Unknown Verified 07/12/24 14:03 codeine Allergy Unknown Verified 07/12/24 14:03 Physical Exam Vitals: Vital Signs Temp Pulse Resp BP Pulse Ox 07/24/24 01:19 60 18 124/60 100 07/24/24 00:12 60 18 138/65 100 07/23/24 22:05 60 18 132/65 100 07/23/24 21:43 142/49 07/23/24 21:36 119/43 07/23/24 21:27 126/81 07/23/24 20:59 98.4 F 60 18 145/90 94 L Intake and Output 07/23/24 07/23/24 07/24/24 14:59 22:59 06:59 Other: Weight 58.513 kg Results CBC & Chem 7: 07/23/24 21:34 07/23/24 23:22 Labs: Abnormal Lab Results - Last 24 Hours (Table) 07/23/24 07/23/24 07/23/24 Range/Units 21:34 21:34 21:34 WBC 14.3 H (3.8-10.6) k/uL RBC 2.81 L (3.80-5.40) m/uL Hgb 8.8 L (11.4-16.0) gm/dL Hct 28.2 L (34.0-46.0) % MCV 100.3 H (80.0-100.0) fL RDW 19.4 H (11.5-15.5) % Neutrophils # 11.8 H (1.3-7.7) k/uL Sodium 130 L (137-145) mmol/L Potassium 6.2 H* (3.5-5.1) mmol/L Chloride 96 L (98-107) mmol/L BUN 49 H (7-17) mg/dL Creatinine 2.39 H (0.52-1.04) mg/dL Glucose 319 H (74-99) mg/dL Plasma Lactic Acid [place] 2.1 H* (0.7-2.0) mmol/L AST 51 H (14-36) U/L Alkaline Phosphatase 351 H (38-126) U/L Total Protein 6.2 L (6.3-8.2) g/dL Albumin 3.2 L (3.5-5.0) g/dL Urine Appearance (Clear) Urine Protein (Negative) Urine Blood (Negative) Ur Leukocyte Esterase (Negative) Urine RBC (0-5) /hpf Urine WBC (0-5) /hpf Urine WBC Clumps (None) /hpf Amorphous Sediment (None) /hpf Urine Bacteria (None) /hpf Hyaline Casts (0-2) /lpf Urine Mucus (None) /hpf 07/23/24 07/24/24 Range/Units 23:22 00:08 WBC (3.8-10.6) k/uL RBC (3.80-5.40) m/uL Hgb (11.4-16.0) gm/dL Hct (34.0-46.0) % MCV (80.0-100.0) fL RDW (11.5-15.5) % Neutrophils # (1.3-7.7) k/uL Sodium (137-145) mmol/L Potassium 5.5 H (3.5-5.1) mmol/L Chloride (98-107) mmol/L BUN (7-17) mg/dL Creatinine (0.52-1.04) mg/dL Glucose (74-99) mg/dL Plasma Lactic Acid [place] (0.7-2.0) mmol/L AST (14-36) U/L Alkaline Phosphatase (38-126) U/L Total Protein (6.3-8.2) g/dL Albumin (3.5-5.0) g/dL Urine Appearance Cloudy H (Clear) Urine Protein 1+ H (Negative) Urine Blood Small H (Negative) Ur Leukocyte Esterase Large H (Negative) Urine RBC 15 H (0-5) /hpf Urine WBC >182 H (0-5) /hpf Urine WBC Clumps Many H (None) /hpf Amorphous Sediment Few H (None) /hpf Urine Bacteria Many H (None) /hpf Hyaline Casts 26 H (0-2) /lpf Urine Mucus Occasional H (None) /hpf Assessment and Plan Assessment: I have seen and evaluated the patient today. I Discussed the case with the resident and agree with the resident's findings I edited the assessment and plan as necessary as documented in the resident's note.
--- NOTE | 2024-07-24 07:54 | CT ---
EXAMINATION TYPE: CT abdomen pelvis wo con DATE OF EXAM: 07/24/2024 COMPARISON: 06/19/2024 HISTORY: Pt presents to ER via EMS. Pt complains of shortness of breath, abdominal pain beginning tod ay. EMS states pt was hypertensive upon their arrival with crackles in lower left lobe. Pt was admini stered 1 nitro tab SL for hypertension. Pt states her chief complaint is abdominal pain. CT DLP: 590.1 mGycm Examination of the solid and hollow viscera is limited given the lack of contrast. FINDINGS: LUNG BASES: Basilar pleural effusions and compressive atelectasis and/or infiltrates. LIVER/GB: The gallbladder is surgically absent. No space-occupying hepatic lesion. PANCREAS: No pancreatic mass identified. No inflammatory process seen. SPLEEN: No evidence for splenomegaly. No intrasplenic lesions seen. ADRENALS: No adrenal nodules identified. No evidence for thickening. KIDNEYS: No evidence for renal mass. No nephrolithiasis. No hydronephrosis. Ordoñez catheter is noted t o be in place. BOWEL: No evidence of bowel obstruction. No inflammatory process. Wall thickening in the region of th e cecum seen previously has resolved. There is nonvisualization of the appendix. Lymph nodes: No evidence for adenopathy greater than 1 cm. Abdominal aorta: Atheromatous changes seen. No evidence for aneurysm. Genital organs: No significant abnormality. Other: Mild anasarca change subcutaneous tissues. Severe degenerative change lumbar spine. IMPRESSION: 1.Wall thickening in the region of the cecum seen previously has resolved. There is nonvisualization of the appendix. 2. Basilar pleural effusions with compressive atelectasis and/or infiltrates. Mild changes of anasarc a. [facility], , 07/24/2024 7:52 AM
[2024-07-24] MEDS ORDERED: FUROSEMIDE 40 MG TAB PO SCH (09:00)
[2024-07-24] MEDS ORDERED: NON FORMULARY DRUG (Ubidecarenone [Co Q-10] 30 MG Capsule) PO SCH (09:00)
[2024-07-24] MEDS ORDERED: SPIRONOLACTONE 25 MG TAB PO SCH (09:00)
[2024-07-24 09:20] LABS: African American GFR (CKD) 18 (>60 ml/min/1.73 sqM); Anion Gap 9 mmol/L; Blood Urea Nitrogen 50 mg/dL (7-17); Calcium 8.6 mg/dL (8.4-10.2); Carbon Dioxide 26 mmol/L (22-30); Chloride 97 mmol/L (98-107); Glucose 129 mg/dL (74-99); Non-African American GFR(CKD) 16 (>60 ml/min/1.73 sqM); Potassium 4.9 mmol/L (3.5-5.1); Sodium 132 mmol/L (137-145)
[2024-07-24] MEDS: INSULIN ASPART (NovoLOG) 100 UNIT/ML VIAL SQ SCH (09:38)
[2024-07-24] MEDS: ASPIRIN 81 MG PO SCH (09:39)
[2024-07-24] MEDS: APIXABAN 2.5 MG TABLET PO SCH (09:39)
[2024-07-24] MEDS: amLODIPine 2.5 MG TAB PO SCH (09:39)
[2024-07-24] MEDS: CHOLECALCIFEROL 25 MCG (1000 IU) TABLET PO SCH (09:40)
[2024-07-24] MEDS: allopurinoL 100 MG TAB PO SCH (09:40)
[2024-07-24] MEDS: FUROSEMIDE 10 MG/ML 4 ML VIAL IV SCH (09:42)
--- NOTE | 2024-07-24 12:09 | P.CRDCN ---
History of Present Illness History of present illness: HISTORY OF PRESENT ILLNESS: This is a 83-year-old female with a past medical history significant for coronary artery disease with previous CABG, valvular heart disease with previous aortic valve replacement, chronic kidney disease, congestive heart failure, pulmonary hypertension, pacemaker implantation, permanent atrial fibrillation, recurrent pleural effusion with previous thoracentesis. Patient follows in the office with Dr. Barnett. We have been asked to see the patient in consultation for CHF. Patient examined at the bedside. Patient presented to the hospital with a chief complaint of shortness of breath. Patient states she started to feel short of breath yesterday. She also reports having some lower abdomen/suprapubic pain. Patient was found to have a UTI. She is currently on IV antibiotics. Patient was also found to be in acute CHF. She was started on IV diuretics. She reports improvement in her shortness of breath this morning. She denies any chest pain or pressure. DIAGNOSTICS: - EKG reveals ventricular paced rhythm. - Chest xray cardiomegaly. Left lower lobe infiltrate. Correlate for pneumonia or atelectasis. Small effusion may be present. - Laboratory data: WBC 14.3. Hemoglobin 8.8. Platelet count 283. Sodium 132. Potassium 4.9. BUN 50. Creatinine 2.63. Lactic acid 2.1. Troponin 0.015. 0.028. proBNP 8640. - Current home cardiac medications include Eliquis 2.5 mg twice a day, aspirin 81 mg daily, Lasix 40 mg daily, simvastatin 20 mg at night, Aldactone 12.5 mg daily, amlodipine 7.5 mg daily - Most recent echocardiogram obtained in June 2024 revealed ejection fraction 55 to 60%, moderate to severe pulmonary hypertension, moderate mitral stenosis, moderate to severe mitral regurgitation, bioprosthetic aortic valve with peak gradient 26 mmHg and mean gradient 16 mmHg, mild prosthetic aortic regurgitation, moderate tricuspid regurgitation, no pericardial effusion, left pleural effusion REVIEW OF SYSTEMS: At the time of my exam: CONSTITUTIONAL: Denies fever or chills. HEENT: Denies blurred vision, vision changes, or eye pain. Denies hemoptysis CARDIOVASCULAR: Denies chest pain. Denies orthopnea. Denies PND. Denies palpitations RESPIRATORY: + shortness of breath. GASTROINTESTINAL: Denies abdominal pain. Denies nausea or vomiting. HEMATOLOGIC: Denies bleeding disorders. GENITOURINARY: Denies any blood in urine. SKIN: Denies pruitis. Denies rash. PHYSICAL EXAM: VITAL SIGNS: Reviewed. GENERAL: Well-developed in no acute distress. HEENT: Head is normocephalic. Pupils are equal, round. Sclerae anicteric. Mucous membranes of the mouth are moist. Neck supple. Positive JVD LUNGS: Respirations even and unlabored. Lungs with bibasilar crackles HEART: Regular rate and rhythm. S1 and S2 heard. 3/6 systolic murmur ABDOMEN: Soft. Nondistended. Nontender. EXTREMITIES: Normal range of motion. No clubbing or cyanosis. Peripheral pulses intact. 2-3+ bilateral lower extremity edema NEUROLOGIC: Awake and alert. Oriented x 3. ASSESSMENT: Shortness of breath Acute on chronic heart failure with preserved EF, 55 to 60% Urinary tract infection Coronary artery disease with previous CABG x 3 vessels, approximately 11 years ago Valvular heart disease including moderate mitral stenosis, moderate to severe mitral regurgitation, and moderate tricuspid regurgitation History of bioprosthetic aortic valve replacement Moderate to severe pulmonary hypertension Chronic kidney disease Permanent atrial fibrillation History of pacemaker implantation History of recurrent pleural effusion with thoracentesis Diabetes PLAN: No need to repeat echocardiogram as this was performed in June 2024 Resume home cardiac medications Farxiga contraindicated secondary to UTI and CKD Continue IV Lasix 40 mg every 12 hours Daily weights, accurate intake and output, and monitoring of kidney function Further recommendations pending patient course Nurse practitioner note has been reviewed by physician. Signing provider agrees with the documented findings, assessment, and plan of care documented by CARBOY FILLER as a scribe. Past Medical History Past Medical History: Coronary Artery Disease (CAD), Heart Failure, Diabetes Mellitus, Hyperlipidemia, Hypertension, Renal Disease Additional Past Medical History / Comment(s): pacemaker for complete heart block, AVR- pig History of Any Multi-Drug Resistant Organisms: None Reported Past Surgical History: Appendectomy, Cholecystectomy, Coronary Bypass/CABG, Hyst erectomy, Pacemaker, Tonsillectomy Additional Past Surgical History / Comment(s): CABG x3 11 years Past Anesthesia/Blood Transfusion Reactions: No Reported Reaction Type of Cardiac Device: Permanent Pacemaker Device Placement Date:: 02/20/23 Past Psychological History: No Psychological Hx Reported Smoking Status: Never smoker Past Alcohol Use History: None Reported Past Drug Use History: None Reported - Past Family History Father History Unknown: Yes Family Medical History: COPD Medications and Allergies Home Medications Medication Instructions Recorded Confirmed Type Simvastatin [Zocor] 20 mg PO HS 08/22/22 07/24/24 History Ubidecarenone [Co Q-10] 30 mg PO DAILY 09/06/23 07/24/24 History calcitrioL 0.25 mcg PO SA 11/17/23 07/24/24 History Apixaban [Eliquis] 2.5 mg PO BID 02/08/24 07/24/24 History allopurinoL [Zyloprim] 100 mg PO DAILY 05/06/24 07/24/24 History Aspirin 81 mg PO DAILY 30 Days #30 tab 05/20/24 07/24/24 Rx Cholecalciferol (Vitamin D3) 50 mcg PO DAILY 06/17/24 07/24/24 History [Vitamin D3 (50 Mcg = 2000 Iu)] Ondansetron Odt [Zofran ODT] 8 mg PO Q8HR PRN 06/17/24 07/24/24 History Furosemide [Lasix] 40 mg PO DAILY #60 tab 07/09/24 07/24/24 Rx Spironolactone [Aldactone] 12.5 mg PO DAILY #60 tab 07/09/24 07/24/24 Rx amLODIPine [Norvasc] 7.5 mg PO DAILY #90 tab 07/09/24 07/24/24 Rx Allergies Allergy/AdvReac Type Severity Reaction Status Date / Time cephalexin Allergy Unknown Verified 07/24/24 08:02 ciprofloxacin [From Cipro] Allergy Unknown Verified 07/24/24 08:02 codeine Allergy Unknown Verified 07/24/24 08:02 Physical Exam Vitals: Vital Signs Temp Pulse Resp BP Pulse Ox 07/24/24 07:47 97.1 F L 60 20 113/97 100 07/24/24 06:17 97.7 F 60 16 153/77 100 07/24/24 05:37 60 18 105/78 100 07/24/24 03:27 60 16 121/68 100 07/24/24 01:19 60 18 124/60 100 07/24/24 00:12 60 18 138/65 100 07/23/24 22:05 60 18 132/65 100 07/23/24 21:43 142/49 07/23/24 21:36 119/43 07/23/24 21:27 126/81 07/23/24 20:59 98.4 F 60 18 145/90 94 L Intake and Output 07/23/24 07/24/24 07/24/24 22:59 06:59 14:59 Output Total 450 Balance -450 Output: Urine 450 Other: Weight 58.513 kg Results 07/23/24 21:34 07/24/24 08:35 Cardiac Enzymes 07/23/24 07/23/24 07/24/24 Range/Units 21:34 21:34 02:00 AST 51 H (14-36) U/L Troponin I 0.015 0.028 (0.000-0.034) ng/mL Coagulation 07/23/24 Range/Units 21:34 PT 10.8 (10.0-12.5) sec APTT 26.0 (22.0-30.0) sec CBC 07/23/24 Range/Units 21:34 WBC 14.3 H (3.8-10.6) k/uL RBC 2.81 L (3.80-5.40) m/uL Hgb 8.8 L (11.4-16.0) gm/dL Hct 28.2 L (34.0-46.0) % Plt Count 383 (150-450) k/uL Comprehensive Metabolic Panel 07/23/24 07/23/24 Range/Units 21:34 23:22 Sodium 130 L (137-145) mmol/L Potassium 6.2 H* 5.5 H (3.5-5.1) mmol/L Chloride 96 L (98-107) mmol/L Carbon Dioxide 25 (22-30) mmol/L BUN 49 H (7-17) mg/dL Creatinine 2.39 H (0.52-1.04) mg/dL Glucose 319 H (74-99) mg/dL Calcium 8.6 (8.4-10.2) mg/dL AST 51 H (14-36) U/L ALT 20 (4-34) U/L Alkaline Phosphatase 351 H (38-126) U/L Total Protein 6.2 L (6.3-8.2) g/dL Albumin 3.2 L (3.5-5.0) g/dL Current Medications Generic Name Dose Route Start Last Admin Trade Name Freq PRN Reason Stop Dose Admin Allopurinol 50 mg 07/24/24 09:00 Allopurinol 100 Mg Tab PO Q48H [facility] Amlodipine Besylate 7.5 mg 07/24/24 09:00 Amlodipine 2.5 Mg Tab PO DAILY [facility] Apixaban 2.5 mg 07/24/24 09:00 Apixaban 2.5 Mg Tablet PO BID [facility] Protocol Aspirin 81 mg 07/24/24 09:00 Aspirin 81 Mg PO DAILY [facility] Atorvastatin Calcium 10 mg 07/24/24 21:00 Atorvastatin 10 Mg Tab PO HS [facility] Calcitriol 0.25 mcg 07/27/24 09:00 Calcitriol 0.25 Mcg Cap PO SA [facility] Cholecalciferol 50 mcg 07/24/24 09:00 Cholecalciferol 25 Mcg (1000 Iu) Tablet PO DAILY [facility] Furosemide 40 mg 07/24/24 09:00 Furosemide 10 Mg/Ml 4 Ml Vial IV Q12HR [facility] Ceftriaxone Sodium 1 gm/ 50 mls @ 100 mls/hr 07/24/24 22:00 Sodium Chloride IVPB Q24HR [facility] Protocol Insulin Aspart 0 unit 07/24/24 07:30 Insulin Aspart (Novolog) 100 Unit/Ml Vial SQ ACHS [facility] Protocol Ondansetron HCl 8 mg 07/23/24 23:41 Ondansetron Odt 8 Mg Tab.Rapdis PO Q8HR PRN Nausea Intake and Output 07/23/24 07/24/24 07/24/24 22:59 06:59 14:59 Output Total 450 Balance -450 Output: Urine 450 Other: Weight 58.513 kg 07/23/24 21:34 07/23/24 23:22
--- NOTE | 2024-07-24 12:31 | P.PN ---
Subjective Progress Note Date: 07/24/24 Hospital course Patient is a 83-year-old female with heart failure, COPD on home oxygen 2 L presented to the ED with shortness of breath and lower abdominal pain. Patient states that she sleeps in a recliner due to orthopnea. Patient also complaining of suprapubic pain that is 5 out of 10. Patient has a chronic Ordoñez catheter. Patient also complains of chills and had 1 episode of vomiting. Patient was recently admitted and had a left-sided thoracentesis with nearly 1 L of fluid removal. ED workup revealed proBNP 8640, troponin 0.015, lactic acid 2.1, WBC 14.3, chest x-ray that shows cardiomegaly, left lower lobe infiltrate, small effusion present. UA was positive for large leukocyte esterase, more than 182 WBC, many WBC clumps, occasional mucus, many bacteria, 26 hyaline cast, 1+ protein and cloudy appearance. She was treated with azithromycin, calcium gluconate, Rocephin, Lasix, nitroglycerin sublingual tablets in the ED. patient was admitted to the medicine service. Patient was started on IV Rocephin to treat for the UTI. Patient's abdominal pain resolved. Ordoñez catheter was replaced. Patient also started on IV diuretics. Cardiology on board. Due to history of CKD nephrology also consulted. Patient seen this morning. She was sitting in the chair. Patient says that she still has short of breath. She states that her abdominal pain has completely resolved. 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 Strict I's and O's and daily weight Due to CKD I will also consult nephrology Urinary tract infection Sepsis on admission Lactic acid has normalized Follow-up on urine culture Follow-up on blood culture Continue with IV Rocephin 2 g daily I instructed nurse to change the Ordoñez catheter Hyperkalemia in the setting of CKD stage IV Will hold spironolactone Continue diuretics Potassium this morning is 4.9 Chronic hypoxic respiratory failure COPD Patient currently satting well on her home O2 of 2 to 3 L. CKD stage IV Patient's creatinine is at baseline which is around 2.5 Nephrology consult Creatinine this morning is 2.69 Anemia of chronic kidney disease Patient's hemoglobin baseline is around 8.5-9.0 Hemoglobin at baseline Mildly elevated liver enzymes suspect due to heart failure Continue to monitor CMP Acute on chronic debility PT OT consult Chronic atrial fibrillation Continue with Eliquis 2.5 mg p.o. twice daily Diabetes mellitus Sliding scale insulin Hyperlipidemia Continue with statin History of gout Continue with allopurinol DVT prophylaxis: Eliquis Prognosis guarded Patient DNR/DNI Objective - Vital Signs Vital signs: Vital Signs Temp 97.1 F L 07/24/24 07:47 Pulse 60 07/24/24 11:18 Resp 20 07/24/24 11:18 BP 134/59 07/24/24 11:18 Pulse Ox 100 07/24/24 11:18 FiO2 Intake & Output 07/23/24 07/24/24 07/24/24 18:59 06:59 18:59 Output Total 450 125 Balance -450 -125 Weight 58.513 kg Output: Urine 450 125 Uretheral (Ordoñez) 125 - Labs CBC & Chem 7: 07/23/24 21:34 07/24/24 08:35 Labs: Abnormal Lab Results - Last 24 Hours (Table) 07/23/24 07/23/24 07/23/24 Range/Units 21:34 21:34 21:34 WBC 14.3 H (3.8-10.6) k/uL RBC 2.81 L (3.80-5.40) m/uL Hgb 8.8 L (11.4-16.0) gm/dL Hct 28.2 L (34.0-46.0) % MCV 100.3 H (80.0-100.0) fL RDW 19.4 H (11.5-15.5) % Neutrophils # 11.8 H (1.3-7.7) k/uL Sodium 130 L (137-145) mmol/L Potassium 6.2 H* (3.5-5.1) mmol/L Chloride 96 L (98-107) mmol/L BUN 49 H (7-17) mg/dL Creatinine 2.39 H (0.52-1.04) mg/dL Glucose 319 H (74-99) mg/dL Plasma Lactic Acid [place] 2.1 H* (0.7-2.0) mmol/L AST 51 H (14-36) U/L Alkaline Phosphatase 351 H (38-126) U/L Total Protein 6.2 L (6.3-8.2) g/dL Albumin 3.2 L (3.5-5.0) g/dL Urine Appearance (Clear) Urine Protein (Negative) Urine Blood (Negative) Ur Leukocyte Esterase (Negative) Urine RBC (0-5) /hpf Urine WBC (0-5) /hpf Urine WBC Clumps (None) /hpf Amorphous Sediment (None) /hpf Urine Bacteria (None) /hpf Hyaline Casts (0-2) /lpf Urine Mucus (None) /hpf 07/23/24 07/24/24 07/24/24 Range/Units 23:22 00:08 08:35 WBC (3.8-10.6) k/uL RBC (3.80-5.40) m/uL Hgb (11.4-16.0) gm/dL Hct (34.0-46.0) % MCV (80.0-100.0) fL RDW (11.5-15.5) % Neutrophils # (1.3-7.7) k/uL Sodium 132 L (137-145) mmol/L Potassium 5.5 H (3.5-5.1) mmol/L Chloride 97 L (98-107) mmol/L BUN 50 H (7-17) mg/dL Creatinine 2.63 H (0.52-1.04) mg/dL Glucose 129 H (74-99) mg/dL Plasma Lactic Acid [place] (0.7-2.0) mmol/L AST (14-36) U/L Alkaline Phosphatase (38-126) U/L Total Protein (6.3-8.2) g/dL Albumin (3.5-5.0) g/dL Urine Appearance Cloudy H (Clear) Urine Protein 1+ H (Negative) Urine Blood Small H (Negative) Ur Leukocyte Esterase Large H (Negative) Urine RBC 15 H (0-5) /hpf Urine WBC >182 H (0-5) /hpf Urine WBC Clumps Many H (None) /hpf Amorphous Sediment Few H (None) /hpf Urine Bacteria Many H (None) /hpf Hyaline Casts 26 H (0-2) /lpf Urine Mucus Occasional H (None) /hpf
[2024-07-24] MEDS: DAPTOmycin 350 MG in SODIUM CHLORIDE 0.9% 50 ML IVPB SCH (20:17)
[2024-07-24] MEDS: ATORVASTATIN 10 MG TAB PO SCH (20:18)
[2024-07-25 07:05] LABS: Anisocytosis Slight; Basophils # (A) 0.1 k/uL (0-0.2); Basophils % (A) 1 %; Eosinophils # (A) 0.6 k/uL (0-0.7); Eosinophils % (A) 6 %; HCT 25.9 % (34.0-46.0); HGB 8.1 gm/dL (11.4-16.0); Hypochromasia Moderate; Lymphocytes # (A) 1.1 k/uL (1.0-4.8); Lymphocytes % (A) 11 %; MCH 31.2 pg (25.0-35.0); MCHC 31.1 g/dL (31.0-37.0); MCV 100.4 fL (80.0-100.0); Macrocytosis Moderate; Mean Platelet Volume 8.7; Monocytes # (A) 0.4 k/uL (0-1.0); Monocytes % (A) 4 %; Neutrophils # (A) 7.5 k/uL (1.3-7.7); Neutrophils % (A) 76 %; Platelet Count 293 k/uL (150-450); RBC 2.58 m/uL (3.80-5.40); RDW 19.1 % (11.5-15.5)
[2024-07-25 07:19] LABS: African American GFR (CKD) 19 (>60 ml/min/1.73 sqM); Anion Gap 8 mmol/L; Blood Urea Nitrogen 54 mg/dL (7-17); Calcium 8.4 mg/dL (8.4-10.2); Carbon Dioxide 26 mmol/L (22-30); Chloride 97 mmol/L (98-107); Glucose 110 mg/dL (74-99); Magnesium 1.9 mg/dL (1.6-2.3); Non-African American GFR(CKD) 16 (>60 ml/min/1.73 sqM); Potassium 4.9 mmol/L (3.5-5.1); Sodium 131 mmol/L (137-145)
--- NOTE | 2024-07-25 11:44 | P.PN ---
Subjective HISTORY OF PRESENT ILLNESS: This is a 83-year-old female with a past medical history significant for coronary artery disease with previous CABG, valvular heart disease with previous aortic valve replacement, chronic kidney disease, congestive heart failure, pulmonary hypertension, pacemaker implantation, permanent atrial fibrillation, recurrent pleural effusion with previous thoracentesis. Patient follows in the office with Dr. Barnett. We have been asked to see the patient in consultation for CHF. Patient examined at the bedside. Patient presented to the hospital with a chief complaint of shortness of breath. Patient states she started to feel short of breath yesterday. She also reports having some lower abdomen/suprapubic pain. Patient was found to have a UTI. She is currently on IV antibiotics. Patient was also found to be in acute CHF. She was started on IV diuretics. She reports improvement in her shortness of breath this morning. She denies any chest pain or pressure. DIAGNOSTICS: - EKG reveals ventricular paced rhythm. - Chest xray cardiomegaly. Left lower lobe infiltrate. Correlate for pneumonia or atelectasis. Small effusion may be present. - Laboratory data: WBC 14.3. Hemoglobin 8.8. Platelet count 283. Sodium 132. Potassium 4.9. BUN 50. Creatinine 2.63. Lactic acid 2.1. Troponin 0.015. 0.028. proBNP 8640. - Current home cardiac medications include Eliquis 2.5 mg twice a day, aspirin 81 mg daily, Lasix 40 mg daily, simvastatin 20 mg at night, Aldactone 12.5 mg daily, amlodipine 7.5 mg daily - Most recent echocardiogram obtained in June 2024 revealed ejection fraction 55 to 60%, moderate to severe pulmonary hypertension, moderate mitral stenosis, moderate to severe mitral regurgitation, bioprosthetic aortic valve with peak gradient 26 mmHg and mean gradient 16 mmHg, mild prosthetic aortic regurgitation, moderate tricuspid regurgitation, no pericardial effusion, left pleural effusion 07/25/2024 Patient examined this morning at the bedside. She is sitting up in the chair. She denies chest pain or pressure. She continues to report shortness of breath, although improved from yesterday. She remains on IV diuretics with Lasix 40 mg every 12 hours. Creatinine today 2.59. PHYSICAL EXAM: VITAL SIGNS: Reviewed. GENERAL: Well-developed in no acute distress. HEENT: Head is normocephalic. Pupils are equal, round. Sclerae anicteric. Mucous membranes of the mouth are moist. Neck supple. Positive JVD LUNGS: Respirations even and unlabored. Lungs with bibasilar crackles HEART: Regular rate and rhythm. S1 and S2 heard. 3/6 systolic murmur ABDOMEN: Soft. Nondistended. Nontender. EXTREMITIES: Normal range of motion. No clubbing or cyanosis. Peripheral pulses intact. 2-3+ bilateral lower extremity edema NEUROLOGIC: Awake and alert. Oriented x 3. ASSESSMENT: Shortness of breath Acute on chronic heart failure with preserved EF, 55 to 60% Urinary tract infection Coronary artery disease with previous CABG x 3 vessels, approximately 11 years ago Valvular heart disease including moderate mitral stenosis, moderate to severe mitral regurgitation, and moderate tricuspid regurgitation History of bioprosthetic aortic valve replacement Moderate to severe pulmonary hypertension Chronic kidney disease Permanent atrial fibrillation History of pacemaker implantation History of recurrent pleural effusion with thoracentesis Diabetes PLAN: No need to repeat echocardiogram as this was performed in June 2024 Resume home cardiac medications Farxiga contraindicated secondary to UTI and CKD Continue IV Lasix 40 mg every 12 hours Daily weights, accurate intake and output, and monitoring of kidney function Further recommendations pending patient course Nurse practitioner note has been reviewed by physician. Signing provider agrees with the documented findings, assessment, and plan of care documented by RECRE[facility] FACILITY MANAGER as a scribe. Objective - Vital Signs Vital signs: Vital Signs Temp 97.0 F L 07/25/24 08:30 Pulse 60 07/25/24 08:30 Resp 16 07/25/24 08:30 BP 138/65 07/25/24 08:30 Pulse Ox 100 07/25/24 08:30 FiO2 Intake & Output 07/24/24 07/25/24 07/25/24 18:59 06:59 18:59 Intake Total 10 490 Output Total 125 200 Balance -125 -190 490 Weight 58.513 kg Intake: IV 10 10 Invasive Line 1 10 10 Oral 480 Output: Urine 125 200 Uretheral (Ordoñez) 125 Other: Voiding Method Indwelling Catheter - Labs CBC & Chem 7: 07/25/24 06:47 07/25/24 06:47 Labs: Abnormal Lab Results - Last 24 Hours (Table) 07/24/24 07/25/24 07/25/24 Range/Units 08:35 06:47 06:47 RBC 2.58 L (3.80-5.40) m/uL Hgb 8.1 L (11.4-16.0) gm/dL Hct 25.9 L (34.0-46.0) % MCV 100.4 H (80.0-100.0) fL RDW 19.1 H (11.5-15.5) % Sodium 132 L 131 L (137-145) mmol/L Chloride 97 L 97 L (98-107) mmol/L BUN 50 H 54 H (7-17) mg/dL Creatinine 2.63 H 2.59 H (0.52-1.04) mg/dL Glucose 129 H 110 H (74-99) mg/dL Microbiology - Last 24 Hours (Table) 07/24/24 00:08 Blood Culture Gram Stain - Preliminary Blood Blood Culture - Preliminary Molecular ID
--- NOTE | 2024-07-25 12:18 | P.PN ---
Subjective Progress Note Date: 07/25/24 Hospital course Patient is a 83-year-old female with heart failure, COPD on home oxygen 2 L presented to the ED with shortness of breath and lower abdominal pain. Patient states that she sleeps in a recliner due to orthopnea. Patient also complaining of suprapubic pain that is 5 out of 10. Patient has a chronic Ordoñez catheter. Patient also complains of chills and had 1 episode of vomiting. Patient was recently admitted and had a left-sided thoracentesis with nearly 1 L of fluid removal. ED workup revealed proBNP 8640, troponin 0.015, lactic acid 2.1, WBC 14.3, chest x-ray that shows cardiomegaly, left lower lobe infiltrate, small effusion present. UA was positive for large leukocyte esterase, more than 182 WBC, many WBC clumps, occasional mucus, many bacteria, 26 hyaline cast, 1+ protein and cloudy appearance. She was treated with azithromycin, calcium gluconate, Rocephin, Lasix, nitroglycerin sublingual tablets in the ED. patient was admitted to the medicine service. Patient was started on IV Rocephin to treat for the UTI. Patient's abdominal pain resolved. Ordoñez catheter was replaced. Patient also started on IV diuretics. Cardiology on board. Due to history of CKD nephrology also consulted. The patient this morning. She states that she is feeling better today compared to yesterday. I also did discuss goals of care with the patient. She is not interested in hospice or palliative care. 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 Psych - Calm and cooperative Assessment and plan Acute on chronic diastolic heart failure Moderate to severe mitral regurgitation Continue with IV Lasix 40 mg twice a day Reviewed cardiology note from mentioned that Farxiga is contraindicated in UTI and CKD Strict I's and O's and daily weight Nephrology also consulted since patient does have CKD Monitor renal function closely especially since patient has CKD: Creatinine this morning is 2.59 stable Urinary tract infection secondary to chronic indwelling Ordoñez catheter Enterococcus faecalis bacteremia Sepsis on admission Reviewed urine culture that is negative to date Blood culture positive for Enterococcus faecalis bacteremia that is vancomycin resistant. I started the patient on IV daptomycin 6 mg/kg daily. Will need to monitor for nephrotoxicity and rhabdomyolysis. Trend BMP and CK I consulted infectious disease WBC is 10.0. Trending down Patient is afebrile Continue with IV Rocephin 2 g daily Trend CBC Hyperkalemia in the setting of CKD stage IV Will hold spironolactone Resolved Chronic hypoxic respiratory failure COPD Patient currently satting well on her home O2 of 2 to 3 L. CKD stage IV Patient's creatinine is at baseline which is around 2.5 Nephrology consult Anemia of chronic kidney disease Patient's hemoglobin baseline is around 8.5-9.0 Hemoglobin at baseline Trend CBC Mildly elevated liver enzymes suspect due to heart failure Continue to monitor CMP Acute on chronic debility PT OT consult Chronic atrial fibrillation Continue with Eliquis 2.5 mg p.o. twice daily Diabetes mellitus Sliding scale insulin Hyperlipidemia Continue with statin History of gout Continue with allopurinol DVT prophylaxis: Eliquis Prognosis guarded Patient DNR/DNI Objective - Vital Signs Vital signs: Vital Signs Temp 97.0 F L 07/25/24 08:30 Pulse 59 L 07/25/24 12:04 Resp 16 07/25/24 12:04 BP 146/68 07/25/24 12:04 Pulse Ox 99 07/25/24 12:04 FiO2 Intake & Output 07/24/24 07/25/24 07/25/24 18:59 06:59 18:59 Intake Total 10 500 Output Total 125 200 Balance -125 -190 500 Weight 58.513 kg Intake: IV 10 20 Invasive Line 1 10 10 Invasive Line 2 10 Oral 480 Output: Urine 125 200 Uretheral (Ordoñez) 125 Other: Voiding Method Indwelling Catheter Indwelling Catheter - Labs CBC & Chem 7: 07/25/24 06:47 07/25/24 06:47 Labs: Abnormal Lab Results - Last 24 Hours (Table) 07/25/24 07/25/24 07/25/24 Range/Units 06:47 06:47 06:47 RBC 2.58 L (3.80-5.40) m/uL Hgb 8.1 L (11.4-16.0) gm/dL Hct 25.9 L (34.0-46.0) % MCV 100.4 H (80.0-100.0) fL RDW 19.1 H (11.5-15.5) % Sodium 131 L (137-145) mmol/L Chloride 97 L (98-107) mmol/L BUN 54 H (7-17) mg/dL Creatinine 2.59 H (0.52-1.04) mg/dL Glucose 110 H (74-99) mg/dL Hemoglobin A1c 6.1 H (<=6.0) % Microbiology - Last 24 Hours (Table) 07/24/24 00:08 Urine Culture - Preliminary Urine,Voided 07/24/24 00:08 Blood Culture Gram Stain - Preliminary Blood Blood Culture - Preliminary Enterococcus faecium Molecular ID
[2024-07-25 12:52] VITALS: BMI 20.8
--- NOTE | 2024-07-25 14:53 | P.NPCON ---
History of Present Illness - Reason for Consult chronic renal failure - History of Present Illness Patient is an 83-year-old female with history of chronic kidney disease NKF stage IV with baseline creatinine about 2.3 to 2.6 mg/dL. History of CHF with preserved ejection fraction. Patient is admitted to the hospital with complaints of weakness. She also had abdominal pain. Found to have urinary tract infection and bacteremia. Blood cultures are growing Enterococcus faecium. Patient has chronic lower extremity swelling which seems to have worsened recently. Patient has a chronic indwelling Ordoñez catheter. Currently maintained on IV Lasix and daptomycin. Tolerating oral intake. Good urine output No hypotension noted. Past Medical History Past Medical History: Coronary Artery Disease (CAD), Heart Failure, Diabetes Mellitus, Hyperlipidemia, Hypertension, Renal Disease Additional Past Medical History / Comment(s): pacemaker for complete heart block, AVR- pig History of Any Multi-Drug Resistant Organisms: None Reported Past Surgical History: Appendectomy, Cholecystectomy, Coronary Bypass/CABG, Hysterectomy, Pacemaker, Tonsillectomy Additional Past Surgical History / Comment(s): CABG x3 11 years Past Anesthesia/Blood Transfusion Reactions: No Reported Reaction Type of Cardiac Device: Permanent Pacemaker Device Placement Date:: 02/20/23 Past Psychological History: No Psychological Hx Reported Smoking Status: Never smoker Past Alcohol Use History: None Reported Past Drug Use History: None Reported - Past Family History Father History Unknown: Yes Family Medical History: COPD Medications and Allergies Home Medications Medication Instructions Recorded Confirmed Type Simvastatin [Zocor] 20 mg PO HS 08/22/22 07/24/24 History Ubidecarenone [Co Q-10] 30 mg PO DAILY 09/06/23 07/24/24 History calcitrioL 0.25 mcg PO SA 11/17/23 07/24/24 History Apixaban [Eliquis] 2.5 mg PO BID 02/08/24 07/24/24 History allopurinoL [Zyloprim] 100 mg PO DAILY 05/06/24 07/24/24 History Aspirin 81 mg PO DAILY 30 Days #30 tab 05/20/24 07/24/24 Rx Cholecalciferol (Vitamin D3) 50 mcg PO DAILY 06/17/24 07/24/24 History [Vitamin D3 (50 Mcg = 2000 Iu)] Ondansetron Odt [Zofran ODT] 8 mg PO Q8HR PRN 06/17/24 07/24/24 History Furosemide [Lasix] 40 mg PO DAILY #60 tab 07/09/24 07/24/24 Rx Spironolactone [Aldactone] 12.5 mg PO DAILY #60 tab 07/09/24 07/24/24 Rx amLODIPine [Norvasc] 7.5 mg PO DAILY #90 tab 07/09/24 07/24/24 Rx Allergies Allergy/AdvReac Type Severity Reaction Status Date / Time cephalexin Allergy Unknown Verified 07/24/24 08:02 ciprofloxacin [From Cipro] Allergy Unknown Verified 07/24/24 08:02 codeine Allergy Unknown Verified 07/24/24 08:02 Physical Exam Vitals: Vital Signs Temp Pulse Pulse Resp BP BP Pulse Ox 07/25/24 14:00 59 L 16 07/25/24 12:04 59 L 16 146/68 99 07/25/24 08:30 97.0 F L 60 16 138/65 100 07/25/24 08:00 60 16 07/25/24 04:15 97.8 F 60 17 144/62 100 07/25/24 00:47 98.2 F 60 18 143/54 99 07/25/24 00:10 96.7 F L 60 16 135/62 98 07/24/24 20:32 60 13 139/65 96 07/24/24 19:00 60 16 128/54 99 07/24/24 14:52 60 18 128/54 100 Intake and Output 07/24/24 07/25/24 07/25/24 22:59 06:59 14:59 Intake Total 10 510 Output Total 200 Balance -200 10 510 Intake: IV 10 30 Invasive Line 1 10 10 Invasive Line 2 20 Oral 480 Output: Urine 200 Other: Voiding Method Indwelling Catheter Indwelling Catheter Weight 58.513 kg 58.513 kg Patient is awake comfortable not in any acute distress. Examination of the heart S1 and S2 Examination of the lungs shows decreased breath sounds at the bases Abdomen is soft nontender Examination of lower extremities shows chronic edema 2-3+ with erythema noted bilaterally DIRECTOR OF MEDIA exam grossly intact Results - Lab Results Most recent lab results Calcium 8.4 mg/dL (8.4-10.2) 07/25/24 06:47 Magnesium 1.9 mg/dL (1.6-2.3) 07/25/24 06:47 07/25/24 06:47 07/25/24 06:47 Assessment and Plan Assessment: 1. Chronic kidney disease NKF stage IV with baseline creatinine 2.3 to 2.6 mg/dL. Renal function close to baseline 2. Volume overload maintained on IV Lasix 3. Enterococcus bacteremia maintained on daptomycin. Source is possibly UTI 4. CKD mineral bone disorder maintained on calcitriol 5. Hyperkalemia on initial admission currently improved. Aldactone on hold. Plan: Continue with IV Lasix Continue with Ordoñez catheter Repeat labs in a.m. Avoid nephrotoxic agents Continue antibiotics. Recommend ID consult Thank you for the consultation. We will continue to follow the patient with you during her hospitalization.
[2024-07-25 17:09] LABS: Glucose,Whole Blood 190 mg/dL (70-110)
[2024-07-25 20:27] LABS: Glucose,Whole Blood 257 mg/dL (70-110)
--- NOTE | 2024-07-25 22:26 | P.CONS ---
History of Present Illness - Reason for Consult Consult date: 07/25/24 Bacteremia Requesting physician: George Schafer - Chief Complaint Shortness of breath x 1 day - History of Present Illness Patient is a 83-year-old female with a past medical history significant for diabetes mellitus hypertension hyperlipidemia heart failure coronary disease patient recently did have an admission from 06/19/2024 till 06/22/2024 there was initial concern for catheter assisted UTI however the patient also have her VRE bacteremia during that admission which was thought to be related to her GI source as the patient have a CT abdominal pelvis with evidence of colitis patient clear her bacteremia very quickly with only 1 positive blood culture subsequently finish therapy with oral Zyvox and Flagyl patient was doing well until 3 days ago when the patient presented to hospital for evaluation of increasing shortness of breath that apparently started the night of presentation to the hospital patient denies having any chest pain or significant cough and denies having any fever or any chills and no fever have been reported during this hospital stay patient was not tachycardic or hypotensive mildly hypoxic currently on 2 L nasal cannula oxygen patient did have white count of 14.3 which is down to 10.0 today BUN and creatinine has been elevated urine has been positive urine cultures currently pending blood cultures came back positive with the VRE patient did have CT of abdominal pelvis completed yesterday we did shows resolution of the previously documented wall thickening of the cecum there was evidence of bilateral effusion and compressive atelectasis patient has been started on daptomycin infectious was consulted for further management of antibiotic therapy patient symptom has been mostly shortness of breath on minimization even at rest denies any chest pain or cough patient denies having any nausea no vomiting no abdominal pain no diarrhea no significant burning or frequency of urine no joint swelling or any swelling or redness to the leg Review of Systems Positive point and negatives has been mentioned in the HPI, complete review of systems was performed and all other systems are negative Past Medical History Past Medical History: Coronary Artery Disease (CAD), Heart Failure, Diabetes Mellitus, Hyperlipidemia, Hypertension, Renal Disease Additional Past Medical History / Comment(s): pacemaker for complete heart block, AVR- pig History of Any Multi-Drug Resistant Organisms: None Reported Past Surgical History: Appendectomy, Cholecystectomy, Coronary Bypass/CABG, Hys terectomy, Pacemaker, Tonsillectomy Additional Past Surgical History / Comment(s): CABG x3 11 years Past Anesthesia/Blood Transfusion Reactions: No Reported Reaction Type of Cardiac Device: Permanent Pacemaker Device Placement Date:: 02/20/23 Past Psychological History: No Psychological Hx Reported Smoking Status: Never smoker Past Alcohol Use History: None Reported Past Drug Use History: None Reported - Past Family History Father History Unknown: Yes Family Medical History: COPD Medications and Allergies Home Medications Medication Instructions Recorded Confirmed Type Simvastatin [Zocor] 20 mg PO HS 08/22/22 07/24/24 History Ubidecarenone [Co Q-10] 30 mg PO DAILY 09/06/23 07/24/24 History calcitrioL 0.25 mcg PO SA 11/17/23 07/24/24 History Apixaban [Eliquis] 2.5 mg PO BID 02/08/24 07/24/24 History allopurinoL [Zyloprim] 100 mg PO DAILY 05/06/24 07/24/24 History Aspirin 81 mg PO DAILY 30 Days #30 tab 05/20/24 07/24/24 Rx Cholecalciferol (Vitamin D3) 50 mcg PO DAILY 06/17/24 07/24/24 History [Vitamin D3 (50 Mcg = 2000 Iu)] Ondansetron Odt [Zofran ODT] 8 mg PO Q8HR PRN 06/17/24 07/24/24 History Furosemide [Lasix] 40 mg PO DAILY #60 tab 07/09/24 07/24/24 Rx Spironolactone [Aldactone] 12.5 mg PO DAILY #60 tab 07/09/24 07/24/24 Rx amLODIPine [Norvasc] 7.5 mg PO DAILY #90 tab 07/09/24 07/24/24 Rx Allergies Allergy/AdvReac Type Severity Reaction Status Date / Time cephalexin Allergy Unknown Verified 07/24/24 08:02 ciprofloxacin [From Cipro] Allergy Unknown Verified 07/24/24 08:02 codeine Allergy Unknown Verified 07/24/24 08:02 Physical Exam Vitals: Vital Signs Temp Pulse Pulse Resp BP BP Pulse Ox 07/25/24 08:30 97.0 F L 60 16 138/65 100 07/25/24 08:00 60 16 07/25/24 04:15 97.8 F 60 17 144/62 100 07/25/24 00:47 98.2 F 60 18 143/54 99 07/25/24 00:10 96.7 F L 60 16 135/62 98 07/24/24 20:32 60 13 139/65 96 07/24/24 19:00 60 16 128/54 99 07/24/24 14:52 60 18 128/54 100 07/24/24 13:13 60 20 137/69 100 Intake and Output 07/24/24 07/25/24 07/25/24 22:59 06:59 14:59 Intake Total 10 500 Output Total 200 Balance -200 10 500 Intake: IV 10 20 Invasive Line 1 10 10 Invasive Line 2 10 Oral 480 Output: Urine 200 Other: Voiding Method Indwelling Catheter Indwelling Catheter Weight 58.513 kg GENERAL DESCRIPTION: Elderly female lying in bed, no distress. No tachypnea or accessory muscle of respiration use. HEENT: Shows Pallor , no scleral icterus. Oral mucous membrane is dry. No pharyngeal erythema or thrush NECK: Trachea central, no thyromegaly. LUNGS: Unlabored breathing. Clear to auscultation anteriorly. No wheeze or crackle. HEART: S1, S2, regular rate and rhythm. ABDOMEN: Soft, no tenderness , guarding or rigidity, no organomegaly EXTREMITIES: No edema of feet. SKIN: No rash, no masses palpable. NEUROLOGICAL: The patient is awake, alert, oriented x3, mood and affect normal. Results CBC & Chem 7: 07/25/24 06:47 07/25/24 06:47 Labs: Abnormal Lab Results - Last 24 Hours (Table) 07/25/24 07/25/24 07/25/24 Range/Units 06:47 06:47 06:47 RBC 2.58 L (3.80-5.40) m/uL Hgb 8.1 L (11.4-16.0) gm/dL Hct 25.9 L (34.0-46.0) % MCV 100.4 H (80.0-100.0) fL RDW 19.1 H (11.5-15.5) % Sodium 131 L (137-145) mmol/L Chloride 97 L (98-107) mmol/L BUN 54 H (7-17) mg/dL Creatinine 2.59 H (0.52-1.04) mg/dL Glucose 110 H (74-99) mg/dL Hemoglobin A1c 6.1 H (<=6.0) % Microbiology - Last 24 Hours (Table) 07/24/24 00:08 Urine Culture - Preliminary Urine,Voided 07/24/24 00:08 Blood Culture Gram Stain - Preliminary Blood Blood Culture - Preliminary Enterococcus faecium Molecular ID Assessment and Plan (1) Allergy to multiple antibiotics Current Visit: No Status: Acute Code(s): Z88.1 - ALLERGY STATUS TO OTHER ANTIBIOTIC AGENTS SNOMED Code(s): 634862696 (2) UTI (urinary tract infection) Current Visit: No Status: Acute Code(s): N39.0 - URINARY TRACT INFECTION, SITE NOT SPECIFIED SNOMED Code(s): 03563312 (3) VRE bacteremia Current Visit: No Status: Acute Code(s): R78.81 - BACTEREMIA; B95.2 - ENTEROCOCCUS THE CAUSE OF DISEASES CLASSIFIED ELSEWHERE; Z16.21 - RESISTANCE TO VANCOMYCIN SNOMED Code(s): 3329360955 Plan: 1patient with the VRE bacteremia in this patient presented to hospital with increasing shortness of breath patient did have a episode of VRE bacteremia on 06/17/2024 with a blood culture negative on 06/20/2024 and was thought to be related to colitis as she did have abnormal CT and urine grew Ivory on that admission now presenting back to the hospital with increasing shortness of breath and tested positive again for VRE high clinical suspicion for possible endovascular source 2-blood cultures will be repeated to document clearance of bacteremia 3-we will obtain echocardiogram 4-continue with the daptomycin 6 mg/kg and discontinue Rocephin We will follow on clinical condition and cultures to further adjust medication if needed Thank you for this consultation we will follow the patient along with you Dictation was produced using [employer] dictation software. please excuse any grammatical, word or spelling errors. Time with Patient: Greater than 30
[2024-07-26 06:06] LABS: Glucose,Whole Blood 111 mg/dL (70-110)
[2024-07-26 06:59] LABS: Glucose,Whole Blood 145 mg/dL (70-110)
[2024-07-26 06:59] LABS: Glucose,Whole Blood 125 mg/dL (70-110)
[2024-07-26 07:01] LABS: Glucose,Whole Blood 239 mg/dL (70-110)
[2024-07-26 07:02] LABS: Glucose,Whole Blood 219 mg/dL (70-110)
[2024-07-26 07:03] LABS: Glucose,Whole Blood 259 mg/dL (70-110)
[2024-07-26 07:12] LABS: Anisocytosis Slight; Basophils # (A) 0.1 k/uL (0-0.2); Basophils % (A) 1 %; Eosinophils # (A) 0.7 k/uL (0-0.7); Eosinophils % (A) 8 %; HCT 25.6 % (34.0-46.0); Hypochromasia Moderate; Lymphocytes # (A) 1.6 k/uL (1.0-4.8); Lymphocytes % (A) 17 %; MCH 31.4 pg (25.0-35.0); MCHC 31.3 g/dL (31.0-37.0); MCV 100.3 fL (80.0-100.0); Macrocytosis Moderate; Mean Platelet Volume 9.1; Monocytes # (A) 0.5 k/uL (0-1.0); Monocytes % (A) 5 %; Neutrophils # (A) 6.1 k/uL (1.3-7.7); Neutrophils % (A) 66 %; Platelet Count 295 k/uL (150-450); RBC 2.56 m/uL (3.80-5.40); RDW 19.1 % (11.5-15.5); WBC 9.2 k/uL (3.8-10.6)
[2024-07-26 07:17] LABS: Glucose,Whole Blood 159 mg/dL (70-110)
[2024-07-26 07:17] LABS: Glucose,Whole Blood 128 mg/dL (70-110)
[2024-07-26 07:35] LABS: Glucose,Whole Blood 142 mg/dL (70-110)
[2024-07-26 08:09] LABS: ALT 20 U/L (4-34); AST 33 U/L (14-36); African American GFR (CKD) 18 (>60 ml/min/1.73 sqM); Albumin 2.8 g/dL (3.5-5.0); Alkaline Phosphatase 336 U/L (38-126); Anion Gap 8 mmol/L; Blood Urea Nitrogen 56 mg/dL (7-17); Calcium 8.4 mg/dL (8.4-10.2); Carbon Dioxide 27 mmol/L (22-30); Chloride 97 mmol/L (98-107); Glucose 101 mg/dL (74-99); Magnesium 1.9 mg/dL (1.6-2.3); Non-African American GFR(CKD) 16 (>60 ml/min/1.73 sqM); Potassium 5.1 mmol/L (3.5-5.1); Sodium 132 mmol/L (137-145); Total Bilirubin 0.3 mg/dL (0.2-1.3); Total Protein 5.6 g/dL (6.3-8.2)
[2024-07-26] MEDS ORDERED: fentaNYL (PF) 50 MCG/ML 5 ML AMP IVP PRN (09:02)
[2024-07-26] MEDS ORDERED: MIDAZOLAM 2 MG/2 ML VIAL IV PRN (09:02)
[2024-07-26] MEDS ORDERED: BENZOCAINE SPRAY 1 CAN TOPICAL PRN (09:02)
--- NOTE | 2024-07-26 10:58 | P.PN ---
Subjective HISTORY OF PRESENT ILLNESS: This is a 83-year-old female with a past medical history significant for coronary artery disease with previous CABG, valvular heart disease with previous aortic valve replacement, chronic kidney disease, congestive heart failure, pulmonary hypertension, pacemaker implantation, permanent atrial fibrillation, recurrent pleural effusion with previous thoracentesis. Patient follows in the office with Dr. Barnett. We have been asked to see the patient in consultation for CHF. Patient examined at the bedside. Patient presented to the hospital with a chief complaint of shortness of breath. Patient states she started to feel short of breath yesterday. She also reports having some lower abdomen/suprapubic pain. Patient was found to have a UTI. She is currently on IV antibiotics. Patient was also found to be in acute CHF. She was started on IV diuretics. She reports improvement in her shortness of breath this morning. She denies any chest pain or pressure. DIAGNOSTICS: - EKG reveals ventricular paced rhythm. - Chest xray cardiomegaly. Left lower lobe infiltrate. Correlate for pneumonia or atelectasis. Small effusion may be present. - Laboratory data: WBC 14.3. Hemoglobin 8.8. Platelet count 283. Sodium 132. Potassium 4.9. BUN 50. Creatinine 2.63. Lactic acid 2.1. Troponin 0.015. 0.028. proBNP 8640. - Current home cardiac medications include Eliquis 2.5 mg twice a day, aspirin 81 mg daily, Lasix 40 mg daily, simvastatin 20 mg at night, Aldactone 12.5 mg daily, amlodipine 7.5 mg daily - Most recent echocardiogram obtained in June 2024 revealed ejection fraction 55 to 60%, moderate to severe pulmonary hypertension, moderate mitral stenosis, moderate to severe mitral regurgitation, bioprosthetic aortic valve with peak gradient 26 mmHg and mean gradient 16 mmHg, mild prosthetic aortic regurgitation, moderate tricuspid regurgitation, no pericardial effusion, left pleural effusion 07/25/2024 Patient examined this morning at the bedside. She is sitting up in the chair. She denies chest pain or pressure. She continues to report shortness of breath, although improved from yesterday. She remains on IV diuretics with Lasix 40 mg every 12 hours. Creatinine today 2.59. 07/26/2024 Patient examined this morning at bedside. Patient currently denies chest pain or pressure. She reports improvement in her shortness of breath. She remains on IV Lasix 40 mg every 12 hours. Creatinine today 2.65. PHYSICAL EXAM: VITAL SIGNS: Reviewed. GENERAL: Well-developed in no acute distress. HEENT: Head is normocephalic. Pupils are equal, round. Sclerae anicteric. Mucous membranes of the mouth are moist. Neck supple. Positive JVD LUNGS: Respirations even and unlabored. Lungs diminished bilaterally HEART: Regular rate and rhythm. S1 and S2 heard. 3/6 systolic murmur ABDOMEN: Soft. Nondistended. Nontender. EXTREMITIES: Normal range of motion. No clubbing or cyanosis. Peripheral pulses intact. 2+ bilateral lower extremity edema NEUROLOGIC: Awake and alert. Oriented x 3. ASSESSMENT: Shortness of breath Acute on chronic heart failure with preserved EF, 55 to 60% Urinary tract infection Bacteremia, blood cultures positive for Enterococcus/VRE Coronary artery disease with previous CABG x 3 vessels, approximately 11 years ago Valvular heart disease including moderate mitral stenosis, moderate to severe mitral regurgitation, and moderate tricuspid regurgitation History of bioprosthetic aortic valve replacement Moderate to severe pulmonary hypertension Chronic kidney disease Permanent atrial fibrillation History of pacemaker implantation History of recurrent pleural effusion with thoracentesis Diabetes PLAN: No need to repeat echocardiogram as this was performed in June 2024 Continue current cardiac medications Farxiga contraindicated secondary to UTI and CKD Continue IV Lasix 40 mg every 12 hours Daily weights, accurate intake and output, and monitoring of kidney function Internal medicine requesting BALTAZAR due to bacteremia N.p.o. at midnight Patient to undergo BALTAZAR tomorrow with Dr. Ramsey Further recommendations pending patient course Nurse practitioner note has been reviewed by physician. Signing provider agrees with the documented findings, assessment, and plan of care documented by [employer] TECH[employer]ICIAN as a scribe. Objective - Vital Signs Vital signs: Vital Signs Temp 97.9 F 07/26/24 07:41 Pulse 60 07/26/24 07:41 Resp 18 07/26/24 07:41 BP 155/54 07/26/24 07:41 Pulse Ox 100 07/26/24 07:41 FiO2 Intake & Output 07/25/24 07/26/24 07/26/24 18:59 06:59 18:59 Intake Total 750 10 120 Output Total 450 600 Balance 300 -590 120 Weight 58.513 kg 65.5 kg Intake: IV 30 10 Invasive Line 1 10 Invasive Line 2 20 10 Oral 720 120 Output: Urine 450 600 Other: Voiding Method Indwelling Catheter Indwelling Catheter Indwelling Catheter - Labs CBC & Chem 7: 07/26/24 06:55 07/26/24 06:55 Labs: Abnormal Lab Results - Last 24 Hours (Table) 07/24/24 07/24/24 07/24/24 Range/Units 06:24 08:00 09:33 RBC (3.80-5.40) m/uL Hgb (11.4-16.0) gm/dL Hct (34.0-46.0) % MCV (80.0-100.0) fL RDW (11.5-15.5) % Sodium (137-145) mmol/L Chloride (98-107) mmol/L BUN (7-17) mg/dL Creatinine (0.52-1.04) mg/dL Glucose (74-99) mg/dL POC Glucose (mg/dL) 142 H 159 H 128 H (70-110) mg/dL Alkaline Phosphatase (38-126) U/L Total Protein (6.3-8.2) g/dL Albumin (3.5-5.0) g/dL 07/24/24 07/24/24 07/24/24 Range/Units 13:07 15:01 20:24 RBC (3.80-5.40) m/uL Hgb (11.4-16.0) gm/dL Hct (34.0-46.0) % MCV (80.0-100.0) fL RDW (11.5-15.5) % Sodium (137-145) mmol/L Chloride (98-107) mmol/L BUN (7-17) mg/dL Creatinine (0.52-1.04) mg/dL Glucose (74-99) mg/dL POC Glucose (mg/dL) 259 H 219 H 239 H (70-110) mg/dL Alkaline Phosphatase (38-126) U/L Total Protein (6.3-8.2) g/dL Albumin (3.5-5.0) g/dL 07/25/24 07/25/24 07/25/24 Range/Units 06:26 11:48 17:04 RBC (3.80-5.40) m/uL Hgb (11.4-16.0) gm/dL Hct (34.0-46.0) % MCV (80.0-100.0) fL RDW (11.5-15.5) % Sodium (137-145) mmol/L Chloride (98-107) mmol/L BUN (7-17) mg/dL Creatinine (0.52-1.04) mg/dL Glucose (74-99) mg/dL POC Glucose (mg/dL) 125 H 145 H 190 H (70-110) mg/dL Alkaline Phosphatase (38-126) U/L Total Protein (6.3-8.2) g/dL Albumin (3.5-5.0) g/dL 07/25/24 07/26/24 07/26/24 Range/Units 20:13 06:00 06:55 RBC 2.56 L (3.80-5.40) m/uL Hgb 8.0 L (11.4-16.0) gm/dL Hct 25.6 L (34.0-46.0) % MCV 100.3 H (80.0-100.0) fL RDW 19.1 H (11.5-15.5) % Sodium (137-145) mmol/L Chloride (98-107) mmol/L BUN (7-17) mg/dL Creatinine (0.52-1.04) mg/dL Glucose (74-99) mg/dL POC Glucose (mg/dL) 257 H 111 H (70-110) mg/dL Alkaline Phosphatase (38-126) U/L Total Protein (6.3-8.2) g/dL Albumin (3.5-5.0) g/dL 07/26/24 Range/Units 06:55 RBC (3.80-5.40) m/uL Hgb (11.4-16.0) gm/dL Hct (34.0-46.0) % MCV (80.0-100.0) fL RDW (11.5-15.5) % Sodium 132 L (137-145) mmol/L Chloride 97 L (98-107) mmol/L BUN 56 H (7-17) mg/dL Creatinine 2.65 H (0.52-1.04) mg/dL Glucose 101 H (74-99) mg/dL POC Glucose (mg/dL) (70-110) mg/dL Alkaline Phosphatase 336 H (38-126) U/L Total Protein 5.6 L (6.3-8.2) g/dL Albumin 2.8 L (3.5-5.0) g/dL Microbiology - Last 24 Hours (Table) 07/24/24 00:08 Blood Culture Gram Stain - Final Blood Blood Culture - Final Enterococcus faecium Molecular ID 07/24/24 00:08 Urine Culture - Final Urine,Voided 07/25/24 11:30 Blood Culture Gram Stain - Preliminary Blood
[2024-07-26 11:32] LABS: Glucose,Whole Blood 161 mg/dL (70-110)
--- NOTE | 2024-07-26 12:56 | P.PN ---
Subjective Progress Note Date: 07/26/24 Principal diagnosis: Reason for follow-up is VRE bacteremia Patient is a 83-year-old female with a past medical history significant for diabetes mellitus hypertension hyperlipidemia heart failure coronary disease patient presented to hospital with increasing shortness of breath did have a positive blood culture VRE prompted this consultation On today's evaluation that is 07/26/2024, patient has been afebrile, patient is breathing comfortably and is currently on room air, patient is breathing more comfortably and denies cough no chest pain, patient denies nausea vomiting or diarrhea and no abdominal pain. Patient white count is 9.2, creatinine 2.65 blood pressure repeat 07/25/2024 also positive for VRE Objective - Vital Signs Vital signs: Vital Signs Temp 97.9 F 07/26/24 07:41 Pulse 60 07/26/24 11:57 Resp 20 07/26/24 11:57 BP 141/68 07/26/24 11:57 Pulse Ox 98 07/26/24 11:57 FiO2 Intake & Output 07/25/24 07/26/24 07/26/24 18:59 06:59 18:59 Intake Total 750 10 120 Output Total 450 600 Balance 300 -590 120 Weight 58.513 kg 65.5 kg Intake: IV 30 10 Invasive Line 1 10 Invasive Line 2 20 10 Oral 720 120 Output: Urine 450 600 Other: Voiding Method Indwelling Catheter Indwelling Catheter Indwelling Catheter - Exam GENERAL DESCRIPTION: An elderly female up in bed in no distress RESPIRATORY SYSTEM: Unlabored breathing , decreased breath sounds at bases HEART: S1 S2 regular rate and rhythm , ABDOMEN: Soft , no tenderness EXTREMITIES: No edema feet - Labs CBC & Chem 7: 07/26/24 06:55 07/26/24 06:55 Labs: Abnormal Lab Results - Last 24 Hours (Table) 07/24/24 07/24/24 07/24/24 Range/Units 06:24 08:00 09:33 RBC (3.80-5.40) m/uL Hgb (11.4-16.0) gm/dL Hct (34.0-46.0) % MCV (80.0-100.0) fL RDW (11.5-15.5) % Sodium (137-145) mmol/L Chloride (98-107) mmol/L BUN (7-17) mg/dL Creatinine (0.52-1.04) mg/dL Glucose (74-99) mg/dL POC Glucose (mg/dL) 142 H 159 H 128 H (70-110) mg/dL Alkaline Phosphatase (38-126) U/L Total Protein (6.3-8.2) g/dL Albumin (3.5-5.0) g/dL 07/24/24 07/24/24 07/24/24 Range/Units 13:07 15:01 20:24 RBC (3.80-5.40) m/uL Hgb (11.4-16.0) gm/dL Hct (34.0-46.0) % MCV (80.0-100.0) fL RDW (11.5-15.5) % Sodium (137-145) mmol/L Chloride (98-107) mmol/L BUN (7-17) mg/dL Creatinine (0.52-1.04) mg/dL Glucose (74-99) mg/dL POC Glucose (mg/dL) 259 H 219 H 239 H (70-110) mg/dL Alkaline Phosphatase (38-126) U/L Total Protein (6.3-8.2) g/dL Albumin (3.5-5.0) g/dL 07/25/24 07/25/24 07/25/24 Range/Units 06:26 11:48 17:04 RBC (3.80-5.40) m/uL Hgb (11.4-16.0) gm/dL Hct (34.0-46.0) % MCV (80.0-100.0) fL RDW (11.5-15.5) % Sodium (137-145) mmol/L Chloride (98-107) mmol/L BUN (7-17) mg/dL Creatinine (0.52-1.04) mg/dL Glucose (74-99) mg/dL POC Glucose (mg/dL) 125 H 145 H 190 H (70-110) mg/dL Alkaline Phosphatase (38-126) U/L Total Protein (6.3-8.2) g/dL Albumin (3.5-5.0) g/dL 07/25/24 07/26/24 07/26/24 Range/Units 20:13 06:00 06:55 RBC 2.56 L (3.80-5.40) m/uL Hgb 8.0 L (11.4-16.0) gm/dL Hct 25.6 L (34.0-46.0) % MCV 100.3 H (80.0-100.0) fL RDW 19.1 H (11.5-15.5) % Sodium (137-145) mmol/L Chloride (98-107) mmol/L BUN (7-17) mg/dL Creatinine (0.52-1.04) mg/dL Glucose (74-99) mg/dL POC Glucose (mg/dL) 257 H 111 H (70-110) mg/dL Alkaline Phosphatase (38-126) U/L Total Protein (6.3-8.2) g/dL Albumin (3.5-5.0) g/dL 07/26/24 07/26/24 Range/Units 06:55 11:31 RBC (3.80-5.40) m/uL Hgb (11.4-16.0) gm/dL Hct (34.0-46.0) % MCV (80.0-100.0) fL RDW (11.5-15.5) % Sodium 132 L (137-145) mmol/L Chloride 97 L (98-107) mmol/L BUN 56 H (7-17) mg/dL Creatinine 2.65 H (0.52-1.04) mg/dL Glucose 101 H (74-99) mg/dL POC Glucose (mg/dL) 161 H (70-110) mg/dL Alkaline Phosphatase 336 H (38-126) U/L Total Protein 5.6 L (6.3-8.2) g/dL Albumin 2.8 L (3.5-5.0) g/dL Microbiology - Last 24 Hours (Table) 07/24/24 00:08 Blood Culture Gram Stain - Final Blood Blood Culture - Final Enterococcus faecium Molecular ID 07/24/24 00:08 Urine Culture - Final Urine,Voided 07/25/24 11:30 Blood Culture Gram Stain - Preliminary Blood Assessment and Plan (1) Allergy to multiple antibiotics Current Visit: No Status: Acute Code(s): Z88.1 - ALLERGY STATUS TO OTHER ANTIBIOTIC AGENTS SNOMED Code(s): 146916821 (2) UTI (urinary tract infection) Current Visit: No Status: Acute Code(s): N39.0 - URINARY TRACT INFECTION, SITE NOT SPECIFIED SNOMED Code(s): 98417348 (3) VRE bacteremia Current Visit: No Status: Acute Code(s): R78.81 - BACTEREMIA; B95.2 - ENTEROCOCCUS THE CAUSE OF DISEASES CLASSIFIED ELSEWHERE; Z16.21 - RESISTANCE TO VANCOMYCIN SNOMED Code(s): 6493036168 Plan: 1patient with the VRE bacteremia in this patient presented to hospital with increasing shortness of breath patient did have a episode of VRE bacteremia on 06/17/2024 with a blood culture negative on 06/20/2024 and was thought to be related to colitis as she did have abnormal CT and urine grew Ivory on that admission now presenting back to the hospital with increasing shortness of breath and tested positive again for VRE high clinical suspicion for possible endovascular source 2-blood cultures repeat on 07/25/2024 also positive blood culture will be repeated in the a.m. 3-BALTAZAR has been scheduled for tomorrow morning as high clinical suspicious for endocarditis 4-patient to continue with the daptomycin 6 mg/kg cannot use gentamicin for synergy because of her kidney function Dictation was produced using [employer] dictation software. please excuse any grammatical, word or spelling errors. Time with Patient: Less than 30
--- NOTE | 2024-07-26 13:25 | P.PN ---
Subjective Progress Note Date: 07/26/24 Hospital course Patient is a 83-year-old female with heart failure, COPD on home oxygen 2 L presented to the ED with shortness of breath and lower abdominal pain. Patient states that she sleeps in a recliner due to orthopnea. Patient also complaining of suprapubic pain that is 5 out of 10. Patient has a chronic Ordoñez catheter. Patient also complains of chills and had 1 episode of vomiting. Patient was recently admitted and had a left-sided thoracentesis with nearly 1 L of fluid removal. ED workup revealed proBNP 8640, troponin 0.015, lactic acid 2.1, WBC 14.3, chest x-ray that shows cardiomegaly, left lower lobe infiltrate, small effusion present. UA was positive for large leukocyte esterase, more than 182 WBC, many WBC clumps, occasional mucus, many bacteria, 26 hyaline cast, 1+ protein and cloudy appearance. She was treated with azithromycin, calcium gluconate, Rocephin, Lasix, nitroglycerin sublingual tablets in the ED. patient was admitted to the medicine service. Patient was started on IV Rocephin to treat for the UTI. Patient's abdominal pain resolved. Ordoñez catheter was replaced. Patient also started on IV diuretics. Cardiology on board. Due to history of CKD nephrology also consulted. Patient's blood cultures came back positive for Enterococcus faecalis. Patient was started on daptomycin. Per infectious disease need to rule out endocarditis. Cardiology plans to do BALTAZAR on 07/27/2024. I did discuss hospice and palliative care with the patient and she refused. Patient seen this morning. She is denying any acute complaints. She is sitting up in the chair. She states that she is feeling better since admission. Physical exam General examination - Alert and Oriented 3 in NAD, appears chronically debili tated, elderly frail lady Heart - + S1S2 no murmurs Lungs -diminished breath sounds bilaterally Abdomen soft NT ND +ve BS Extremities - No edema INFECTION PREVENTION COORDINATOR - Moving all 4 extremities spontaneously Psych - Calm and cooperative Assessment and plan Acute on chronic diastolic heart failure Moderate to severe mitral regurgitation Continue with IV Lasix 40 mg twice a day Strict I's and O's and daily weight Nephrology also consulted since patient does have CKD Monitor renal function closely especially since patient has CKD: Creatinine this morning is 2.65 stable Enterococcus faecalis bacteremia with unclear source Sepsis on admission UTI ruled out Blood culture positive for Enterococcus faecalis bacteremia that is VRE. Repeat blood culture also positive Continue with daptomycin 6 mg/kg every 24 hours. Need to monitor toxicity for rhabdomyolysis and renal failure. Trend BMP and CK. CK from this morning is pending Infectious disease on board. I discussed with infectious disease who is recommending to rule out endocarditis since patient has history of bioprosthetic aortic valve. I discussed with cardiology who will schedule the patient for BALTAZAR tomorrow morning. Hyperkalemia in the setting of CKD stage IV Will hold spironolactone Resolved Chronic hypoxic respiratory failure COPD Patient currently satting well on her home O2 of 2 to 3 L. CKD stage IV Patient's creatinine is at baseline which is around 2.5 Nephrology following Anemia of chronic kidney disease Patient's hemoglobin baseline is around 8.5-9.0 Hemoglobin this morning is 8.0. Hemoglobin slightly less than baseline. Will continue to monitor CBC Mildly elevated liver enzymes suspect due to heart failure Continue to monitor CMP Acute on chronic debility PT OT consult Chronic atrial fibrillation Continue with Eliquis 2.5 mg p.o. twice daily Diabetes mellitus Sliding scale insulin Hyperlipidemia Continue with statin History of gout Continue with allopurinol DVT prophylaxis: Eliquis Prognosis guarded -> patient refused hospice and palliative care Patient DNR/DNI Objective - Vital Signs Vital signs: Vital Signs Temp 97.9 F 07/26/24 07:41 Pulse 60 07/26/24 11:57 Resp 20 07/26/24 11:57 BP 141/68 07/26/24 11:57 Pulse Ox 98 07/26/24 11:57 FiO2 Intake & Output 07/25/24 07/26/24 07/26/24 18:59 06:59 18:59 Intake Total 750 10 120 Output Total 450 600 Balance 300 -590 120 Weight 58.513 kg 65.5 kg Intake: IV 30 10 Invasive Line 1 10 Invasive Line 2 20 10 Oral 720 120 Output: Urine 450 600 Other: Voiding Method Indwelling Catheter Indwelling Catheter Indwelling Catheter - Labs CBC & Chem 7: 07/26/24 06:55 07/26/24 06:55 Labs: Abnormal Lab Results - Last 24 Hours (Table) 07/24/24 07/24/24 07/24/24 Range/Units 06:24 08:00 09:33 RBC (3.80-5.40) m/uL Hgb (11.4-16.0) gm/dL Hct (34.0-46.0) % MCV (80.0-100.0) fL RDW (11.5-15.5) % Sodium (137-145) mmol/L Chloride (98-107) mmol/L BUN (7-17) mg/dL Creatinine (0.52-1.04) mg/dL Glucose (74-99) mg/dL POC Glucose (mg/dL) 142 H 159 H 128 H (70-110) mg/dL Alkaline Phosphatase (38-126) U/L Total Protein (6.3-8.2) g/dL Albumin (3.5-5.0) g/dL 07/24/24 07/24/24 07/24/24 Range/Units 13:07 15:01 20:24 RBC (3.80-5.40) m/uL Hgb (11.4-16.0) gm/dL Hct (34.0-46.0) % MCV (80.0-100.0) fL RDW (11.5-15.5) % Sodium (137-145) mmol/L Chloride (98-107) mmol/L BUN (7-17) mg/dL Creatinine (0.52-1.04) mg/dL Glucose (74-99) mg/dL POC Glucose (mg/dL) 259 H 219 H 239 H (70-110) mg/dL Alkaline Phosphatase (38-126) U/L Total Protein (6.3-8.2) g/dL Albumin (3.5-5.0) g/dL 07/25/24 07/25/24 07/25/24 Range/Units 06:26 11:48 17:04 RBC (3.80-5.40) m/uL Hgb (11.4-16.0) gm/dL Hct (34.0-46.0) % MCV (80.0-100.0) fL RDW (11.5-15.5) % Sodium (137-145) mmol/L Chloride (98-107) mmol/L BUN (7-17) mg/dL Creatinine (0.52-1.04) mg/dL Glucose (74-99) mg/dL POC Glucose (mg/dL) 125 H 145 H 190 H (70-110) mg/dL Alkaline Phosphatase (38-126) U/L Total Protein (6.3-8.2) g/dL Albumin (3.5-5.0) g/dL 07/25/24 07/26/24 07/26/24 Range/Units 20:13 06:00 06:55 RBC 2.56 L (3.80-5.40) m/uL Hgb 8.0 L (11.4-16.0) gm/dL Hct 25.6 L (34.0-46.0) % MCV 100.3 H (80.0-100.0) fL RDW 19.1 H (11.5-15.5) % Sodium (137-145) mmol/L Chloride (98-107) mmol/L BUN (7-17) mg/dL Creatinine (0.52-1.04) mg/dL Glucose (74-99) mg/dL POC Glucose (mg/dL) 257 H 111 H (70-110) mg/dL Alkaline Phosphatase (38-126) U/L Total Protein (6.3-8.2) g/dL Albumin (3.5-5.0) g/dL 07/26/24 07/26/24 Range/Units 06:55 11:31 RBC (3.80-5.40) m/uL Hgb (11.4-16.0) gm/dL Hct (34.0-46.0) % MCV (80.0-100.0) fL RDW (11.5-15.5) % Sodium 132 L (137-145) mmol/L Chloride 97 L (98-107) mmol/L BUN 56 H (7-17) mg/dL Creatinine 2.65 H (0.52-1.04) mg/dL Glucose 101 H (74-99) mg/dL POC Glucose (mg/dL) 161 H (70-110) mg/dL Alkaline Phosphatase 336 H (38-126) U/L Total Protein 5.6 L (6.3-8.2) g/dL Albumin 2.8 L (3.5-5.0) g/dL Microbiology - Last 24 Hours (Table) 07/24/24 00:08 Blood Culture Gram Stain - Final Blood Blood Culture - Final Enterococcus faecium Molecular ID 07/24/24 00:08 Urine Culture - Final Urine,Voided 07/25/24 11:30 Blood Culture Gram Stain - Preliminary Blood
--- NOTE | 2024-07-26 15:27 | P.PN ---
Subjective Patient is seen for follow-up for chronic kidney disease. Maintained on IV Lasix. Shortness of breath has improved. Repeat blood cultures are positive. Objective - Vital Signs Vital signs: Vital Signs Temp 97.9 F 07/26/24 07:41 Pulse 60 07/26/24 11:57 Resp 20 07/26/24 11:57 BP 141/68 07/26/24 11:57 Pulse Ox 98 07/26/24 11:57 FiO2 Intake & Output 07/25/24 07/26/24 07/26/24 18:59 06:59 18:59 Intake Total 750 10 360 Output Total 450 600 575 Balance 300 -590 -215 Weight 58.513 kg 65.5 kg Intake: IV 30 10 Invasive Line 1 10 Invasive Line 2 20 10 Oral 720 360 Output: Urine 450 600 575 Other: Voiding Method Indwelling Catheter Indwelling Catheter Indwelling Catheter - Exam Patient is awake, comfortable, no acute distress. Examination of the heart S1 and S2 Examination of the lungs decreased breath sounds at the bases Abdomen is soft nontender Examination of lower extremities shows edema 2-3+ bilaterally with chronic skin changes - Labs CBC & Chem 7: 07/26/24 06:55 07/26/24 06:55 Labs: Abnormal Lab Results - Last 24 Hours (Table) 07/24/24 07/24/24 07/24/24 Range/Units 06:24 08:00 09:33 RBC (3.80-5.40) m/uL Hgb (11.4-16.0) gm/dL Hct (34.0-46.0) % MCV (80.0-100.0) fL RDW (11.5-15.5) % Sodium (137-145) mmol/L Chloride (98-107) mmol/L BUN (7-17) mg/dL Creatinine (0.52-1.04) mg/dL Glucose (74-99) mg/dL POC Glucose (mg/dL) 142 H 159 H 128 H (70-110) mg/dL Alkaline Phosphatase (38-126) U/L Total Protein (6.3-8.2) g/dL Albumin (3.5-5.0) g/dL 07/24/24 07/24/24 07/24/24 Range/Units 13:07 15:01 20:24 RBC (3.80-5.40) m/uL Hgb (11.4-16.0) gm/dL Hct (34.0-46.0) % MCV (80.0-100.0) fL RDW (11.5-15.5) % Sodium (137-145) mmol/L Chloride (98-107) mmol/L BUN (7-17) mg/dL Creatinine (0.52-1.04) mg/dL Glucose (74-99) mg/dL POC Glucose (mg/dL) 259 H 219 H 239 H (70-110) mg/dL Alkaline Phosphatase (38-126) U/L Total Protein (6.3-8.2) g/dL Albumin (3.5-5.0) g/dL 07/25/24 07/25/24 07/25/24 Range/Units 06:26 11:48 17:04 RBC (3.80-5.40) m/uL Hgb (11.4-16.0) gm/dL Hct (34.0-46.0) % MCV (80.0-100.0) fL RDW (11.5-15.5) % Sodium (137-145) mmol/L Chloride (98-107) mmol/L BUN (7-17) mg/dL Creatinine (0.52-1.04) mg/dL Glucose (74-99) mg/dL POC Glucose (mg/dL) 125 H 145 H 190 H (70-110) mg/dL Alkaline Phosphatase (38-126) U/L Total Protein (6.3-8.2) g/dL Albumin (3.5-5.0) g/dL 07/25/24 07/26/24 07/26/24 Range/Units 20:13 06:00 06:55 RBC 2.56 L (3.80-5.40) m/uL Hgb 8.0 L (11.4-16.0) gm/dL Hct 25.6 L (34.0-46.0) % MCV 100.3 H (80.0-100.0) fL RDW 19.1 H (11.5-15.5) % Sodium (137-145) mmol/L Chloride (98-107) mmol/L BUN (7-17) mg/dL Creatinine (0.52-1.04) mg/dL Glucose (74-99) mg/dL POC Glucose (mg/dL) 257 H 111 H (70-110) mg/dL Alkaline Phosphatase (38-126) U/L Total Protein (6.3-8.2) g/dL Albumin (3.5-5.0) g/dL 07/26/24 07/26/24 Range/Units 06:55 11:31 RBC (3.80-5.40) m/uL Hgb (11.4-16.0) gm/dL Hct (34.0-46.0) % MCV (80.0-100.0) fL RDW (11.5-15.5) % Sodium 132 L (137-145) mmol/L Chloride 97 L (98-107) mmol/L BUN 56 H (7-17) mg/dL Creatinine 2.65 H (0.52-1.04) mg/dL Glucose 101 H (74-99) mg/dL POC Glucose (mg/dL) 161 H (70-110) mg/dL Alkaline Phosphatase 336 H (38-126) U/L Total Protein 5.6 L (6.3-8.2) g/dL Albumin 2.8 L (3.5-5.0) g/dL Microbiology - Last 24 Hours (Table) 07/24/24 00:08 Blood Culture Gram Stain - Final Blood Blood Culture - Final Enterococcus faecium Molecular ID 07/24/24 00:08 Urine Culture - Final Urine,Voided 07/25/24 11:30 Blood Culture Gram Stain - Preliminary Blood Assessment and Plan Assessment: 1. Chronic kidney disease NKF stage IV with baseline creatinine 2.3 to 2.6 mg/dL. Renal function close to baseline 2. Volume overload maintained on IV Lasix 3. Enterococcus bacteremia maintained on daptomycin. Urine culture is negative. Patient is being followed by ID. Concern for endocarditis. Scheduled for BALTAZAR in a.m. 4. CKD mineral bone disorder maintained on calcitriol 5. Hyperkalemia on initial admission currently improved. Aldactone on hold. Plan: Continue with IV Lasix Continue with Ordoñez catheter Repeat labs in a.m. Avoid nephrotoxic agents Continue antibiotics.
[2024-07-26 16:10] LABS: Glucose,Whole Blood 248 mg/dL (70-110)
[2024-07-26 20:10] LABS: Glucose,Whole Blood 450 mg/dL (70-110)
[2024-07-26 22:07] LABS: Glucose,Whole Blood 207 mg/dL (70-110)
[2024-07-27 06:16] LABS: Glucose,Whole Blood 119 mg/dL (70-110)
[2024-07-27 06:55] LABS: Anisocytosis Slight; Basophils % (A) 0 %; Eosinophils # (A) 0.8 k/uL (0-0.7); Eosinophils % (A) 8 %; HCT 25.2 % (34.0-46.0); HGB 8.1 gm/dL (11.4-16.0); Lymphocytes # (A) 1.8 k/uL (1.0-4.8); Lymphocytes % (A) 18 %; MCH 31.8 pg (25.0-35.0); MCHC 32.2 g/dL (31.0-37.0); Macrocytosis Slight; Mean Platelet Volume 9.1; Monocytes # (A) 0.5 k/uL (0-1.0); Monocytes % (A) 5 %; Neutrophils # (A) 6.7 k/uL (1.3-7.7); Neutrophils % (A) 67 %; Platelet Count 295 k/uL (150-450); RBC 2.54 m/uL (3.80-5.40); RDW 19.4 % (11.5-15.5)
[2024-07-27 07:40] LABS: ALT 20 U/L (4-34); AST 34 U/L (14-36); African American GFR (CKD) 18 (>60 ml/min/1.73 sqM); Albumin 2.9 g/dL (3.5-5.0); Alkaline Phosphatase 378 U/L (38-126); Anion Gap 4 mmol/L; Blood Urea Nitrogen 60 mg/dL (7-17); Calcium 8.6 mg/dL (8.4-10.2); Carbon Dioxide 26 mmol/L (22-30); Chloride 100 mmol/L (98-107); Glucose 102 mg/dL (74-99); Non-African American GFR(CKD) 15 (>60 ml/min/1.73 sqM); Potassium 5.5 mmol/L (3.5-5.1); Sodium 130 mmol/L (137-145); Total Bilirubin 0.4 mg/dL (0.2-1.3); Total Protein 5.6 g/dL (6.3-8.2)
[2024-07-27] MEDS: IV FLUID CONTINUATION 1,000 ML IV ONE (09:53)
[2024-07-27] MEDS: BENZOCAINE SPRAY 1 EACH MM ONE ×2 (09:56)
[2024-07-27] MEDS: MIDAZOLAM 2 MG/2 ML VIAL IVP ONE ×2 (10:04→10:06)
[2024-07-27] MEDS: fentaNYL (PF) 50 MCG/ML 2 ML AMP IVP ONE ×2 (10:04→10:06)
[2024-07-27 11:25] LABS: Glucose,Whole Blood 99 mg/dL (70-110)
--- NOTE | 2024-07-27 11:45 | P.PN ---
Subjective Patient is seen for follow-up for chronic kidney disease. Maintained on IV Lasix. Blood cultures remain positive. Status post BALTAZAR Objective - Vital Signs Vital signs: Vital Signs Temp 97.6 F 07/27/24 08:00 Pulse 61 07/27/24 10:19 Resp 16 07/27/24 10:19 BP 129/59 07/27/24 10:19 Pulse Ox 100 07/27/24 10:19 FiO2 Intake & Output 07/26/24 07/27/24 07/27/24 18:59 06:59 18:59 Intake Total 480 100 Output Total 800 1025 Balance -320 -1025 100 Weight 63.5 kg Intake: IV 100 Oral 480 Output: Urine 800 1025 Other: Voiding Method Indwelling Catheter Indwelling Catheter Indwelling Catheter - Exam Patient is awake, comfortable, no acute distress. Examination of the heart S1 and S2 Examination of the lungs decreased breath sounds at the bases Abdomen is soft nontender Examination of lower extremities shows edema 2-3+ bilaterally with chronic skin changes - Labs CBC & Chem 7: 07/27/24 06:30 07/27/24 06:30 Labs: Abnormal Lab Results - Last 24 Hours (Table) 07/26/24 07/26/24 07/26/24 Range/Units 16:09 20:08 22:05 RBC (3.80-5.40) m/uL Hgb (11.4-16.0) gm/dL Hct (34.0-46.0) % RDW (11.5-15.5) % Eosinophils # (0-0.7) k/uL Sodium (137-145) mmol/L Potassium (3.5-5.1) mmol/L BUN (7-17) mg/dL Creatinine (0.52-1.04) mg/dL Glucose (74-99) mg/dL POC Glucose (mg/dL) 248 H 450 H 207 H (70-110) mg/dL Alkaline Phosphatase (38-126) U/L Total Protein (6.3-8.2) g/dL Albumin (3.5-5.0) g/dL 07/27/24 07/27/24 07/27/24 Range/Units 06:14 06:30 06:30 RBC 2.54 L (3.80-5.40) m/uL Hgb 8.1 L (11.4-16.0) gm/dL Hct 25.2 L (34.0-46.0) % RDW 19.4 H (11.5-15.5) % Eosinophils # 0.8 H (0-0.7) k/uL Sodium 130 L (137-145) mmol/L Potassium 5.5 H (3.5-5.1) mmol/L BUN 60 H (7-17) mg/dL Creatinine 2.75 H (0.52-1.04) mg/dL Glucose 102 H (74-99) mg/dL POC Glucose (mg/dL) 119 H (70-110) mg/dL Alkaline Phosphatase 378 H (38-126) U/L Total Protein 5.6 L (6.3-8.2) g/dL Albumin 2.9 L (3.5-5.0) g/dL Microbiology - Last 24 Hours (Table) 07/26/24 10:07 Blood Culture Gram Stain - Preliminary Blood 07/25/24 11:30 Blood Culture Gram Stain - Final Blood Blood Culture - Final Enterococcus faecium Assessment and Plan Assessment: 1. Chronic kidney disease NKF stage IV with baseline creatinine 2.3 to 2.6 mg/dL. 2. Volume overload maintained on IV Lasix 3. Enterococcus bacteremia maintained on daptomycin. Urine culture is negative. Patient is being followed by ID. Concern for endocarditis. Scheduled for BALTAZAR in a.m. 4. CKD mineral bone disorder maintained on calcitriol 5. Hyperkalemia on initial admission currently improved. Aldactone on hold. 6. Acute kidney injury secondary to underlying sepsis Plan: Continue with IV Lasix Continue with Ordoñez catheter kelma 1 Change diet to low potassium diet Repeat labs in a.m. Continue antibiotics.
[2024-07-27] MEDS: SODIUM ZIRCONIUM CYCLOSILICATE 10 GM PACKET PO ONE (12:30)
--- NOTE | 2024-07-27 13:50 | P.PN ---
Subjective Progress Note Date: 07/27/24 Principal diagnosis: Reason for follow-up is VRE bacteremia Patient is a 83-year-old female with a past medical history significant for diabetes mellitus hypertension hyperlipidemia heart failure coronary disease patient presented to hospital with increasing shortness of breath did have a positive blood culture VRE prompted this consultation On today's evaluation that is Patient is status post BALTAZAR completed this morning verbal report per the nursing staff mention vegetation. On today's evaluation that is 07/27/2024, Patient is afebrile this morning patient denies having any chest pain shortness of breath or cough, the patient is currently on 2 L nasal cannula oxygen, patient denies any abdominal pain no diarrhea no nausea no vomiting. Patient white count is 10.0, creatinine is 2.75 blood culture from 08/15/2024 is also positive Objective - Vital Signs Vital signs: Vital Signs Temp 97.6 F 07/27/24 08:00 Pulse 61 07/27/24 10:19 Resp 16 07/27/24 10:19 BP 129/59 07/27/24 10:19 Pulse Ox 100 07/27/24 10:19 FiO2 Intake & Output 07/26/24 07/27/24 07/27/24 18:59 06:59 18:59 Intake Total 480 100 Output Total 800 1025 Balance -320 -1025 100 Weight 63.5 kg Intake: IV 100 Oral 480 Output: Urine 800 1025 Other: Voiding Method Indwelling Catheter Indwelling Catheter Indwelling Catheter - Exam GENERAL DESCRIPTION: An elderly female up in bed in no distress RESPIRATORY SYSTEM: Unlabored breathing , decreased breath sounds at bases HEART: S1 S2 regular rate and rhythm , ABDOMEN: Soft , no tenderness EXTREMITIES: No edema feet - Labs CBC & Chem 7: 07/27/24 06:30 07/27/24 06:30 Labs: Abnormal Lab Results - Last 24 Hours (Table) 07/26/24 07/26/24 07/26/24 Range/Units 16:09 20:08 22:05 RBC (3.80-5.40) m/uL Hgb (11.4-16.0) gm/dL Hct (34.0-46.0) % RDW (11.5-15.5) % Eosinophils # (0-0.7) k/uL Sodium (137-145) mmol/L Potassium (3.5-5.1) mmol/L BUN (7-17) mg/dL Creatinine (0.52-1.04) mg/dL Glucose (74-99) mg/dL POC Glucose (mg/dL) 248 H 450 H 207 H (70-110) mg/dL Alkaline Phosphatase (38-126) U/L Total Protein (6.3-8.2) g/dL Albumin (3.5-5.0) g/dL 07/27/24 07/27/24 07/27/24 Range/Units 06:14 06:30 06:30 RBC 2.54 L (3.80-5.40) m/uL Hgb 8.1 L (11.4-16.0) gm/dL Hct 25.2 L (34.0-46.0) % RDW 19.4 H (11.5-15.5) % Eosinophils # 0.8 H (0-0.7) k/uL Sodium 130 L (137-145) mmol/L Potassium 5.5 H (3.5-5.1) mmol/L BUN 60 H (7-17) mg/dL Creatinine 2.75 H (0.52-1.04) mg/dL Glucose 102 H (74-99) mg/dL POC Glucose (mg/dL) 119 H (70-110) mg/dL Alkaline Phosphatase 378 H (38-126) U/L Total Protein 5.6 L (6.3-8.2) g/dL Albumin 2.9 L (3.5-5.0) g/dL Microbiology - Last 24 Hours (Table) 07/26/24 10:07 Blood Culture Gram Stain - Preliminary Blood 07/25/24 11:30 Blood Culture Gram Stain - Final Blood Blood Culture - Final Enterococcus faecium Assessment and Plan (1) Allergy to multiple antibiotics Current Visit: No Status: Acute Code(s): Z88.1 - ALLERGY STATUS TO OTHER ANTIBIOTIC AGENTS SNOMED Code(s): 052566687 (2) UTI (urinary tract infection) Current Visit: No Status: Acute Code(s): N39.0 - URINARY TRACT INFECTION, SITE NOT SPECIFIED SNOMED Code(s): 62029476 (3) VRE bacteremia Current Visit: No Status: Acute Code(s): R78.81 - BACTEREMIA; B95.2 - ENTEROCOCCUS THE CAUSE OF DISEASES CLASSIFIED ELSEWHERE; Z16.21 - RESISTANCE TO VANCOMYCIN SNOMED Code(s): 8680243416 Plan: 1patient with the VRE bacteremia in this patient presented to hospital with increasing shortness of breath patient did have a episode of VRE bacteremia on 06/17/2024 with a blood culture negative on 06/20/2024 and was thought to be related to colitis as she did have abnormal CT and urine grew Ivory on that admission now presenting back to the hospital with increasing shortness of breath and tested positive again Enterococcus faecium that is not VRE, high clinical suspicion for possible endovascular source 2-blood cultures repeat on 07/25/2024 as well as 07/26/2024 positive blood culture to be repeated to document clearance of bacteremia 3-BALTAZAR has been completed this morning verbal report is endocarditis awaiting final report 4-patient to continue with the daptomycin 6 mg/kg and monitor clinical course closely Dictation was produced using [employer] dictation software. please excuse any grammatical, word or spelling errors. Time with Patient: Less than 30
[2024-07-27 16:16] LABS: Glucose,Whole Blood 177 mg/dL (70-110)
--- NOTE | 2024-07-27 17:45 | P.PN ---
Subjective Progress Note Date: 07/27/24 Objective - Vital Signs Vital signs: Vital Signs Temp 97.6 F 07/27/24 08:00 Pulse 61 07/27/24 16:00 Resp 16 07/27/24 16:00 BP 150/67 07/27/24 16:00 Pulse Ox 99 07/27/24 16:00 FiO2 Intake & Output 07/26/24 07/27/24 07/27/24 18:59 06:59 18:59 Intake Total 480 220 Output Total 800 1025 875 Balance -320 -1025 -575 Weight 63.5 kg Intake: IV 100 Oral 480 120 Output: Urine 800 1025 875 Other: Voiding Method Indwelling Catheter Indwelling Catheter Indwelling Catheter - Constitutional General appearance: Present: cooperative - Respiratory Respiratory: bilateral: diminished, rhonchi - Cardiovascular Rhythm: regular - Gastrointestinal General gastrointestinal: Present: normal bowel sounds - Integumentary Integumentary: Present: flushed - Musculoskeletal Musculoskeletal: Present: generalized weakness - Psychiatric Psychiatric: Present: appropriate affect - Labs CBC & Chem 7: 07/27/24 06:30 07/27/24 06:30 Labs: Abnormal Lab Results - Last 24 Hours (Table) 07/26/24 07/26/24 07/27/24 Range/Units 20:08 22:05 06:14 RBC (3.80-5.40) m/uL Hgb (11.4-16.0) gm/dL Hct (34.0-46.0) % RDW (11.5-15.5) % Eosinophils # (0-0.7) k/uL Sodium (137-145) mmol/L Potassium (3.5-5.1) mmol/L BUN (7-17) mg/dL Creatinine (0.52-1.04) mg/dL Glucose (74-99) mg/dL POC Glucose (mg/dL) 450 H 207 H 119 H (70-110) mg/dL Alkaline Phosphatase (38-126) U/L Total Protein (6.3-8.2) g/dL Albumin (3.5-5.0) g/dL 07/27/24 07/27/24 07/27/24 Range/Units 06:30 06:30 16:15 RBC 2.54 L (3.80-5.40) m/uL Hgb 8.1 L (11.4-16.0) gm/dL Hct 25.2 L (34.0-46.0) % RDW 19.4 H (11.5-15.5) % Eosinophils # 0.8 H (0-0.7) k/uL Sodium 130 L (137-145) mmol/L Potassium 5.5 H (3.5-5.1) mmol/L BUN 60 H (7-17) mg/dL Creatinine 2.75 H (0.52-1.04) mg/dL Glucose 102 H (74-99) mg/dL POC Glucose (mg/dL) 177 H (70-110) mg/dL Alkaline Phosphatase 378 H (38-126) U/L Total Protein 5.6 L (6.3-8.2) g/dL Albumin 2.9 L (3.5-5.0) g/dL Microbiology - Last 24 Hours (Table) 07/26/24 10:07 Blood Culture Gram Stain - Preliminary Blood 07/25/24 11:30 Blood Culture Gram Stain - Final Blood Blood Culture - Final Enterococcus faecium Assessment and Plan (1) CHF exacerbation Narrative/Plan: On IV diuretics Current Visit: Yes Status: Acute Code(s): I50.9 - HEART FAILURE, UNSPECIFIED SNOMED Code(s): 184711459 (2) Sepsis due to vancomycin resistant Enterococcus species Current Visit: Yes Status: Acute Code(s): A41.81 - SEPSIS DUE TO ENTEROCOCCUS; Z16.21 - RESISTANCE TO VANCOMYCIN SNOMED Code(s): 9516132573 (3) VRE bacteremia Narrative/Plan: Appreciate infectious disease input. Patient with continued positive cultures. BALTAZAR can be completed. Continue daptomycin. Current Visit: No Status: Acute Code(s): R78.81 - BACTEREMIA; B95.2 - ENTEROCOCCUS THE CAUSE OF DISEASES CLASSIFIED ELSEWHERE; Z16.21 - RESISTANCE TO VANCOMYCIN SNOMED Code(s): 4491417267 (4) Renal insufficiency Narrative/Plan: Patient nephrology input continue to monitor Current Visit: No Status: Acute Code(s): N28.9 - DISORDER OF KIDNEY AND URETER, UNSPECIFIED SNOMED Code(s): 239432535 Plan: VRE continued bacteremia, continue IV daptomycin. Continue IV diuresis with IV Lasix
[2024-07-27 20:06] LABS: Glucose,Whole Blood 180 mg/dL (70-110)
[2024-07-28 05:47] LABS: Anisocytosis Slight; Basophils # (A) 0.1 k/uL (0-0.2); Basophils % (A) 0 %; Eosinophils # (A) 0.9 k/uL (0-0.7); Eosinophils % (A) 8 %; HCT 25.8 % (34.0-46.0); HGB 8.4 gm/dL (11.4-16.0); Lymphocytes # (A) 2.1 k/uL (1.0-4.8); Lymphocytes % (A) 19 %; MCH 32.5 pg (25.0-35.0); MCHC 32.4 g/dL (31.0-37.0); MCV 100.2 fL (80.0-100.0); Macrocytosis Moderate; Monocytes # (A) 0.5 k/uL (0-1.0); Monocytes % (A) 4 %; Neutrophils # (A) 7.4 k/uL (1.3-7.7); Neutrophils % (A) 66 %; Platelet Count 304 k/uL (150-450); RBC 2.58 m/uL (3.80-5.40); RDW 19.2 % (11.5-15.5); WBC 11.2 k/uL (3.8-10.6)
[2024-07-28 05:48] LABS: Glucose,Whole Blood 102 mg/dL (70-110)
[2024-07-28 06:19] LABS: African American GFR (CKD) 16 (>60 ml/min/1.73 sqM); Anion Gap 7 mmol/L; Blood Urea Nitrogen 64 mg/dL (7-17); Calcium 8.7 mg/dL (8.4-10.2); Carbon Dioxide 28 mmol/L (22-30); Chloride 97 mmol/L (98-107); Glucose 90 mg/dL (74-99); Non-African American GFR(CKD) 14 (>60 ml/min/1.73 sqM); Potassium 5.2 mmol/L (3.5-5.1); Sodium 132 mmol/L (137-145)
--- NOTE | 2024-07-28 08:13 | P.TEE ---
Description of Procedure(s): Procedure performed: Transesophageal Echocardiogram with color flow doppler, pulsed wave doppler and continuous wave doppler, moderate conscious sedation Moderate conscious sedation: Moderate conscious sedation was supplied with direct supervision of myself using Versed and Fentanyl. Complications: none Indications: persistent bacteremia PROCEDURE: After the risks, benefits and alternatives of the above mentioned procedure was explained in detail with the patient, informed consent was obtained. Patient was brought to the lab in a fasting state. Patient was given IV Versed and Fentanyl for sedation. The throat was sprayed with Hurricane to anesthetize the throat. A lubricated Omni probe was then introduced into the esophagus and stomach and multiple views were obtained. 2D echo with color flow doppler, pulsed wave doppler and continuous wave doppler was utilized. Agitated saline bubbles were injected to assess for any intra-atrial shunt. The probe was then removed. Patient tolerated the procedure well. Patient was transferred to the post procedure area in stable and satisfactory condition. FINDINGS: 1. There is a bioprosthetic aortic valve with mild aortic stenosis 2. The mitral valve is severely thickened with severe mitral calcification vs mitral ring. There is mild to moderate mitral stenosis with mean gradient 6.4 and a heart rate 60 bpm. There is moderate to severe mitral regurgitation. There is systolic flow reversal in the left upper pulmonary vein. 3. Tricuspid valve appears to be normal with moderate tricuspid regurgitation. 4. There is a 0.8 x 0.8 cm echodensity in the right atrium appearing to be attached to the right atrial pacemaker lead with a 1.5 cm stalk. Attachment site not clearly identified. Likely consistent with vegetation. There is no vegetation of the valves. 5. Left atrial appendage is free of clot. 6. Left ventricular EF 50-55%.
--- NOTE | 2024-07-28 11:13 | XR ---
EXAMINATION TYPE: XR chest 1V DATE OF EXAM: 07/28/2024 COMPARISON: 07/23/2024 INDICATION: CHF TECHNIQUE: Single frontal view of the chest is obtained. FINDINGS: The heart size is normal. The pulmonary vasculature is normal. There is a moderate right pleural effusion or infiltrate at the left lateral lung base. Follow-up is recommended. Degenerative changes are at the right shoulder. IMPRESSION: 1. Left lower lobe effusion or consolidation. Follow-up recommended [facility], Workstation: [email or web address], 07/28/2024 11:11 AM
[2024-07-28 11:33] LABS: Glucose,Whole Blood 214 mg/dL (70-110)
--- NOTE | 2024-07-28 13:14 | P.PN ---
Subjective Progress Note Date: 07/28/24 HISTORY OF PRESENT ILLNESS: This is a 83-year-old female with a past medical history significant for co ronary artery disease with previous CABG, valvular heart disease with previous aortic valve replacement, chronic kidney disease, congestive heart failure, pulmonary hypertension, pacemaker implantation, permanent atrial fibrillation, recurrent pleural effusion with previous thoracentesis. Patient follows in the office with Dr. Barnett. We have been asked to see the patient in consultation for CHF. Patient examined at the bedside. Patient presented to the hospital with a chief complaint of shortness of breath. Patient states she started to feel short of breath yesterday. She also reports having some lower abdomen/suprapubic pain. Patient was found to have a UTI. She is currently on IV antibiotics. Patient was also found to be in acute CHF. She was started on IV diuretics. She reports improvement in her shortness of breath this morning. She denies any chest pain or pressure. DIAGNOSTICS: - EKG reveals ventricular paced rhythm. - Chest xray cardiomegaly. Left lower lobe infiltrate. Correlate for pneumonia or atelectasis. Small effusion may be present. - Laboratory data: WBC 14.3. Hemoglobin 8.8. Platelet count 283. Sodium 132. Potassium 4.9. BUN 50. Creatinine 2.63. Lactic acid 2.1. Troponin 0.015. 0.028. proBNP 8640. - Current home cardiac medications include Eliquis 2.5 mg twice a day, aspirin 81 mg daily, Lasix 40 mg daily, simvastatin 20 mg at night, Aldactone 12.5 mg daily, amlodipine 7.5 mg daily - Most recent echocardiogram obtained in June 2024 revealed ejection fraction 55 to 60%, moderate to severe pulmonary hypertension, moderate mitral s tenosis, moderate to severe mitral regurgitation, bioprosthetic aortic valve with peak gradient 26 mmHg and mean gradient 16 mmHg, mild prosthetic aortic regurgitation, moderate tricuspid regurgitation, no pericardial effusion, left pleural effusion 07/25/2024 Patient examined this morning at the bedside. She is sitting up in the chair. She denies chest pain or pressure. She continues to report shortness of breath, although improved from yesterday. She remains on IV diuretics with Lasix 40 mg every 12 hours. Creatinine today 2.59. 07/26/2024 Patient examined this morning at bedside. Patient currently denies chest pain or pressure. She reports improvement in her shortness of breath. She remains on IV Lasix 40 mg every 12 hours. Creatinine today 2.65. 07/27/2024 BALTAZAR revealed bioprosthetic aortic valve with mild aortic stenosis, mild to moderate mitral stenosis, there is a 0.8 x 0.8 cm echodensity in the right atrium appearing to be attached to the right atrial pacemaker lead with a 1.5 cm stock likely consistent with vegetation, no vegetation of the valves, EF 50-55%. 07/28/2024 She has been feeling okay. No chest pain or pressure. Breathing is stable. She is adamant that she does not want any dialysis. Labs reviewed: Creatinine 2.9, potassium 5.2, hemoglobin 8.4, sodium 132. PHYSICAL EXAM: VITAL SIGNS: Reviewed. GENERAL: Well-developed in no acute distress. HEENT: Head is normocephalic. Pupils are equal, round. Sclerae anicteric. Mucous membranes of the mouth are moist. Neck supple. Positive JVD LUNGS: Respirations even and unlabored. Lungs diminished bilaterally HEART: Regular rate and rhythm. S1 and S2 heard. 3/6 systolic murmur ABDOMEN: Soft. Nondistended. Nontender. EXTREMITIES: Normal range of motion. No clubbing or cyanosis. Peripheral pulses intact. 1+ bilateral lower extremity edema NEUROLOGIC: Awake and alert. Oriented x 3. ASSESSMENT: Shortness of breath Acute on chronic heart failure with preserved EF, 55 to 60% Urinary tract infection Bacteremia, blood cultures positive for Enterococcus/VRE Coronary artery disease with previous CABG x 3 vessels, approximately 11 years ago Valvular heart disease including moderate mitral stenosis, moderate to severe mitral regurgitation, and moderate tricuspid regurgitation History of bioprosthetic aortic valve replacement Moderate to severe pulmonary hypertension Chronic kidney disease Permanent atrial fibrillation History of pacemaker implantation History of recurrent pleural effusion with thoracentesis Diabetes Echodensity seen on pacemaker lead likely consistent with vegetation PLAN: Continue with IV antibiotics per ID. No plans to remove pacemaker lead at this time. Will continue to monitor symptom martel. Will decrease Lasix to daily. Further recommendations pending patient course Nurse practitioner note has been reviewed by physician. Signing provider agrees with the documented findings, assessment, and plan of care documented by WELT ROUGHER as a scribe. Objective - Vital Signs Vital signs: Vital Signs Temp 97.9 F 07/28/24 08:00 Pulse 60 07/28/24 12:00 Resp 16 10/06/24 12:00 BP 146/55 07/28/24 12:00 Pulse Ox 100 07/28/24 12:00 FiO2 Intake & Output 07/27/24 07/28/24 07/28/24 18:59 06:59 18:59 Intake Total 340 118 Output Total 875 700 Balance -535 -700 118 Weight 57.5 kg Intake: IV 100 Oral 240 118 Output: Urine 875 700 Other: Voiding Method Indwelling Catheter Indwelling Catheter Indwelling Catheter - Labs CBC & Chem 7: 07/28/24 05:28 07/28/24 05:28 Labs: Abnormal Lab Results - Last 24 Hours (Table) 07/27/24 07/27/24 07/28/24 Range/Units 16:15 20:04 05:28 WBC 11.2 H (3.8-10.6) k/uL RBC 2.58 L (3.80-5.40) m/uL Hgb 8.4 L (11.4-16.0) gm/dL Hct 25.8 L (34.0-46.0) % MCV 100.2 H (80.0-100.0) fL RDW 19.2 H (11.5-15.5) % Eosinophils # 0.9 H (0-0.7) k/uL Sodium (137-145) mmol/L Potassium (3.5-5.1) mmol/L Chloride (98-107) mmol/L BUN (7-17) mg/dL Creatinine (0.52-1.04) mg/dL POC Glucose (mg/dL) 177 H 180 H (70-110) mg/dL 07/28/24 07/28/24 Range/Units 05:28 11:31 WBC (3.8-10.6) k/uL RBC (3.80-5.40) m/uL Hgb (11.4-16.0) gm/dL Hct (34.0-46.0) % MCV (80.0-100.0) fL RDW (11.5-15.5) % Eosinophils # (0-0.7) k/uL Sodium 132 L (137-145) mmol/L Potassium 5.2 H (3.5-5.1) mmol/L Chloride 97 L (98-107) mmol/L BUN 64 H (7-17) mg/dL Creatinine 2.94 H (0.52-1.04) mg/dL POC Glucose (mg/dL) 214 H (70-110) mg/dL Microbiology - Last 24 Hours (Table) 07/26/24 10:07 Blood Culture Gram Stain - Preliminary Blood Blood Culture - Preliminary Enterococcus faecium
[2024-07-28 16:24] LABS: Glucose,Whole Blood 110 mg/dL (70-110)
--- NOTE | 2024-07-28 18:47 | P.PN ---
Subjective Progress Note Date: 07/28/24 ([place] emergency department seen at 1130) Patient seen and examined at bedside. Denies any chest pain, shortness of breath, nausea, vomiting. We had a long discussion regarding vegetation on her pacemaker valve, chronic kidney disease, and need to discuss with infectious disease. 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 Case discussed with Dr. Ramsey. No plans to review his pacemaker at this time. Decrease Lasix to daily. -Continue with daptomycin 350 mg IV piggyback every 48 hours Acute kidney injury on chronic kidney disease stage IV Hyperkalemia -Lokelma and 5 mg p.o. x 1 -Await further nephrology recommendations -Creatinine near baseline of 2.3-2.6 DM 2 -Not on medications at home -A1c is 6.1 -Sliding scale insulin Imaging: BALTAZAR reviewed with vegetation in the atrium appeared to be attached to pacemaker site. Data Review: Labs reviewed from today include CBC and basic metabolic profile which are remarkable for sodium of 132, potassium 5.2, BUN 64, and creatinine of 2.94. Hemoglobin stable at 8.4. DVT prophylaxis: Eliquis Anticipated discharge date: Pending clinical course Anticipated discharge place: Pending clinical course This dictation was prepared using [employer] voice recognition software. Though every attempt is made to correct errors during dictation some may still exist. Objective - Vital Signs Vital signs: Vital Signs Temp 97.9 F 07/28/24 08:00 Pulse 57 L 07/28/24 16:00 Resp 16 07/28/24 16:00 BP 151/74 07/28/24 16:00 Pulse Ox 100 07/28/24 16:00 FiO2 Intake & Output 07/27/24 07/28/24 07/28/24 18:59 06:59 18:59 Intake Total 340 354 Output Total 875 700 800 Balance -483 -152 -440 Weight 57.5 kg Intake: IV 100 Oral 240 354 Output: Urine 871 700 800 Other: Voiding Method Indwelling Catheter Indwelling Catheter Indwelling Catheter - Labs CBC & Chem 7: 07/28/24 05:28 07/28/24 05:28 Labs: Abnormal Lab Results - Last 24 Hours (Table) 07/27/24 07/28/24 07/28/24 Range/Units 20:04 05:28 05:28 WBC 11.2 H (3.8-10.6) k/uL RBC 2.58 L (3.80-5.40) m/uL Hgb 8.4 L (11.4-16.0) gm/dL Hct 25.8 L (34.0-46.0) % MCV 100.2 H (80.0-100.0) fL RDW 19.2 H (11.5-15.5) % Eosinophils # 0.9 H (0-0.7) k/uL Sodium 132 L (137-145) mmol/L Potassium 5.2 H (3.5-5.1) mmol/L Chloride 97 L (98-107) mmol/L BUN 64 H (7-17) mg/dL Creatinine 2.94 H (0.52-1.04) mg/dL POC Glucose (mg/dL) 180 H (70-110) mg/dL 07/28/24 Range/Units 11:31 WBC (3.8-10.6) k/uL RBC (3.80-5.40) m/uL Hgb (11.4-16.0) gm/dL Hct (34.0-46.0) % MCV (80.0-100.0) fL RDW (11.5-15.5) % Eosinophils # (0-0.7) k/uL Sodium (137-145) mmol/L Potassium (3.5-5.1) mmol/L Chloride (98-107) mmol/L BUN (7-17) mg/dL Creatinine (0.52-1.04) mg/dL POC Glucose (mg/dL) 214 H (70-110) mg/dL Microbiology - Last 24 Hours (Table) 07/26/24 10:07 Blood Culture Gram Stain - Preliminary Blood Blood Culture - Preliminary Enterococcus faecium
[2024-07-28 20:33] LABS: Glucose,Whole Blood 287 mg/dL (70-110)
[2024-07-28] MEDS: SODIUM ZIRCONIUM CYCLOSILICATE 10 GM PACKET PO ONE (21:53)
--- NOTE | 2024-07-28 21:54 | P.PN ---
Subjective Progress Note Date: 07/28/24 Principal diagnosis: Reason for follow-up is VRE bacteremia Patient is a 83-year-old female with a past medical history significant for diabetes mellitus hypertension hyperlipidemia heart failure coronary disease patient presented to hospital with increasing shortness of breath did have a positive blood culture VRE prompted this consultation, Patient is status post BALTAZAR completed concerning for vegetation on the pacemaker lead On today's evaluation that is 07/28/2024,the patient denies any fever or any chills, patient is breathing comfortably on 2 L nasal cannula oxygen the patient denies chest pain shortness of breath and no significant cough, patient denies abdominal pain, no nausea vomiting or diarrhea. Patient white count is 11.2 creatinine is 2.94 Objective - Vital Signs Vital signs: Vital Signs Temp 97.9 F 07/28/24 08:00 Pulse 63 07/28/24 08:00 Resp 16 07/28/24 08:00 BP 143/53 07/28/24 08:00 Pulse Ox 99 07/28/24 08:00 FiO2 Intake & Output 07/27/24 07/28/24 07/28/24 18:59 06:59 18:59 Intake Total 340 118 Output Total 875 700 Balance -535 -700 118 Weight 57.5 kg Intake: IV 100 Oral 240 118 Output: Urine 875 700 Other: Voiding Method Indwelling Catheter Indwelling Catheter - Exam GENERAL DESCRIPTION: An elderly female up in bed in no distress RESPIRATORY SYSTEM: Unlabored breathing , decreased breath sounds at bases HEART: S1 S2 regular rate and rhythm , ABDOMEN: Soft , no tenderness EXTREMITIES: No edema feet - Labs CBC & Chem 7: 07/28/24 05:28 07/28/24 05:28 Labs: Abnormal Lab Results - Last 24 Hours (Table) 07/27/24 07/27/24 07/28/24 Range/Units 16:15 20:04 05:28 WBC 11.2 H (3.8-10.6) k/uL RBC 2.58 L (3.80-5.40) m/uL Hgb 8.4 L (11.4-16.0) gm/dL Hct 25.8 L (34.0-46.0) % MCV 100.2 H (80.0-100.0) fL RDW 19.2 H (11.5-15.5) % Eosinophils # 0.9 H (0-0.7) k/uL Sodium (137-145) mmol/L Potassium (3.5-5.1) mmol/L Chloride (98-107) mmol/L BUN (7-17) mg/dL Creatinine (0.52-1.04) mg/dL POC Glucose (mg/dL) 177 H 180 H (70-110) mg/dL 07/28/24 Range/Units 05:28 WBC (3.8-10.6) k/uL RBC (3.80-5.40) m/uL Hgb (11.4-16.0) gm/dL Hct (34.0-46.0) % MCV (80.0-100.0) fL RDW (11.5-15.5) % Eosinophils # (0-0.7) k/uL Sodium 132 L (137-145) mmol/L Potassium 5.2 H (3.5-5.1) mmol/L Chloride 97 L (98-107) mmol/L BUN 64 H (7-17) mg/dL Creatinine 2.94 H (0.52-1.04) mg/dL POC Glucose (mg/dL) (70-110) mg/dL Microbiology - Last 24 Hours (Table) 07/26/24 10:07 Blood Culture Gram Stain - Preliminary Blood Assessment and Plan (1) Allergy to multiple antibiotics Current Visit: No Status: Acute Code(s): Z88.1 - ALLERGY STATUS TO OTHER ANTIBIOTIC AGENTS SNOMED Code(s): 488634494 (2) UTI (urinary tract infection) Current Visit: No Status: Acute Code(s): N39.0 - URINARY TRACT INFECTION, SITE NOT SPECIFIED SNOMED Code(s): 06968144 (3) VRE bacteremia Current Visit: No Status: Acute Code(s): R78.81 - BACTEREMIA; B95.2 - ENTEROCOCCUS THE CAUSE OF DISEASES CLASSIFIED ELSEWHERE; Z16.21 - RESISTANCE TO VANCOMYCIN SNOMED Code(s): 7549877881 Plan: 1patient with the VRE bacteremia in this patient presented to hospital with increasing shortness of breath patient did have a episode of VRE bacteremia on 06/17/2024 with a blood culture negative on 06/20/2024 and was thought to be related to colitis as she did have abnormal CT and urine grew Ivory on that admission now presenting back to the hospital with increasing shortness of breath and tested positive again Enterococcus faecium that is not VRE, high clinical suspicion for possible endovascular source, patient did have a BALTAZAR concerning for vegetation on the pacemaker lead 2-blood cultures repeat on 07/25/2024 as well as 07/26/2024 positive blood culture to be repeated to document clearance of bacteremia 3-patient has been to be high risk of any surgical intervention to remove the pacemaker and lead lifelong suppressive antibiotic may be an option if the patient clears her bacteremia for now we will continue with the daptomycin and monitor clinical course closely Dictation was produced using [employer] dictation software. please excuse any grammatical, word or spelling errors. Time with Patient: Less than 30
[2024-07-29 06:10] LABS: Glucose,Whole Blood 75 mg/dL (70-110)
[2024-07-29 06:48] LABS: Anisocytosis Slight; Hypochromasia Marked; MCH 30.6 pg (25.0-35.0); MCHC 29.7 g/dL (31.0-37.0); Macrocytosis Moderate; Mean Platelet Volume 8.7; Platelet Count 324 k/uL (150-450); RBC 2.62 m/uL (3.80-5.40); RDW 18.9 % (11.5-15.5); WBC 12.7 k/uL (3.8-10.6)
[2024-07-29 07:08] LABS: African American GFR (CKD) 17 (>60 ml/min/1.73 sqM); Anion Gap 7 mmol/L; Blood Urea Nitrogen 66 mg/dL (7-17); Calcium 8.8 mg/dL (8.4-10.2); Carbon Dioxide 28 mmol/L (22-30); Chloride 98 mmol/L (98-107); Glucose 61 mg/dL (74-99); Non-African American GFR(CKD) 15 (>60 ml/min/1.73 sqM); Potassium 4.6 mmol/L (3.5-5.1); Sodium 133 mmol/L (137-145)
[2024-07-29] MEDS: FUROSEMIDE 10 MG/ML 4 ML VIAL IV SCH (09:08)
--- NOTE | 2024-07-29 09:28 | P.PN ---
Subjective Patient is seen in follow-up for acute kidney injury on chronic kidney disease. Renal function stable. On IV Lasix. Nonoliguric. Denies chest pain or shortness of breath. Vital signs are stable. General: No acute distress. HEENT: Head exam is unremarkable. On nasal cannula. LUNGS: No audible rhonchi or wheezes. HEART: Rate and Rhythm are regular. ABDOMEN: Nontender. EXTREMITITES: Erythema noted. 2+ edema. Objective - Vital Signs Vital signs: Vital Signs Temp 97.9 F 07/28/24 19:40 Pulse 60 07/29/24 03:41 Resp 16 07/29/24 03:41 BP 133/77 07/29/24 03:41 Pulse Ox 99 07/29/24 03:41 FiO2 Intake & Output 07/28/24 07/29/24 07/29/24 18:59 06:59 18:59 Intake Total 354 200 Output Total 800 300 Balance -446 -300 200 Weight 61 kg Intake: Oral 354 200 Output: Urine 800 300 Other: Voiding Method Indwelling Catheter Indwelling Catheter - Labs CBC & Chem 7: 07/29/24 06:05 07/29/24 06:05 Labs: Abnormal Lab Results - Last 24 Hours (Table) 07/28/24 07/28/24 07/29/24 Range/Units 11:31 20:32 06:05 WBC 12.7 H (3.8-10.6) k/uL RBC 2.62 L (3.80-5.40) m/uL Hgb 8.0 L (11.4-16.0) gm/dL Hct 27.0 L (34.0-46.0) % MCV 103.0 H (80.0-100.0) fL MCHC 29.7 L (31.0-37.0) g/dL RDW 18.9 H (11.5-15.5) % Sodium (137-145) mmol/L BUN (7-17) mg/dL Creatinine (0.52-1.04) mg/dL Glucose (74-99) mg/dL POC Glucose (mg/dL) 214 H 287 H (70-110) mg/dL 07/29/24 Range/Units 06:05 WBC (3.8-10.6) k/uL RBC (3.80-5.40) m/uL Hgb (11.4-16.0) gm/dL Hct (34.0-46.0) % MCV (80.0-100.0) fL MCHC (31.0-37.0) g/dL RDW (11.5-15.5) % Sodium 133 L (137-145) mmol/L BUN 66 H (7-17) mg/dL Creatinine 2.79 H (0.52-1.04) mg/dL Glucose 61 L (74-99) mg/dL POC Glucose (mg/dL) (70-110) mg/dL Microbiology - Last 24 Hours (Table) 07/26/24 10:07 Blood Culture Gram Stain - Preliminary Blood Blood Culture - Preliminary Enterococcus faecium Assessment and Plan Plan: Assessment: 1. Acute kidney injury secondary to ATN secondary to severe sepsis and cardiorenal syndrome. Creatinine peaked at 2.94 this admission and is 2.79 today. 2. Chronic kidney disease stage IV with baseline creatinine 2.3-2.6. 3. Volume overload. Improving with diuresis. 4. MRSA bacteremia maintained on daptomycin. ID following. BALTAZAR concerning for vegetation on pacemaker lead. 5. Acute on chronic diastolic CHF with mild to moderate mitral stenosis, moderate to severe mitral regurgitation and moderate tricuspid regurgitation. 6. Chronic kidney disease mineral bone disease maintained on calcitriol. 7. Hypertension with chronic kidney disease. 8. Anemia of chronic kidney disease. Plan: Maintain IV Lasix. Add Aranesp. Continue to monitor renal function and urine output. Avoid nephrotoxins.
[2024-07-29] MEDS ORDERED: BENZONATATE 100 MG CAP PO PRN (10:45)
[2024-07-29 11:28] LABS: Glucose,Whole Blood 229 mg/dL (70-110)
[2024-07-29] MEDS: DARBEPOETIN ALFA 40 MCG/0.4 ML SYRINGE SQ SCH (12:51)
--- NOTE | 2024-07-29 16:06 | P.PN ---
Subjective Progress Note Date: 07/29/24 83 year old F with PMH of CHF, COPD on 2L home O2, CKD stage IV chronic Ordoñez catheter presents to the ED for SOB and dysuria. In the ED she underwent extensive evaluation. BP 145/90, HR 60, T 98.4, RR 18, 94% on 2L. CBC, Coag panel, CMP significant for WBC 14.3, RBC 2.81, Hg 8.8, Hct 28.2, MCV 100.3, Na 130, K 6.2, Cl 96, BUN 49, Cr 2.39, glu 319, AST 51, alk phos 351, alb 3.2. Lactic acid 2.1. Mag 1.9. Troponin 0.015, 0.028. BNP 8640. Lipase 139. UA large LE. CXR cardiomegaly with LLL infiltrate. EKG ventricular pacemaker. CT AP basilar pleural effusions with compressive atelectasis and anasarca. Patient was admitted for further workup and management. Started on Laisx IV BID for diastolic CHF exacerbation and Cardiology consulted. Started on Rocephin IV for treatment of UTI. BCx came back + for VRE. Rocephin switched to Daptomycin and ID consulted. Underwent BALTAZAR on 07/27 which showed 0.8 x 0.8 cm density in the right atrium attached to the right atrial pacemaker lead. Cardiology with no plans to remove pacemaker at this time. 07/29 Patient was seen and examined. Maintained on Daptomycin 350 mg IV Q48H. CBC and BMP significant for WBC 12.7, RBC 2.62, Hg 8, Hct 27, MCV 103, Na 133, B UN 66, Cr 2.79, glu 61. 10/6 BCx positive. General: non toxic, no distress, appears at stated age Derm: warm, dry Head: atraumatic, normocephalic, symmetric Eyes: EOMI, no lid lag, anicteric sclera Mouth: no lip lesion, mucus membranes moist Cardiovascular: S1S2 reg, no murmur Lungs: Decreased BS bilateral, no rhonchi, no rales, no accessory muscle use Ext: no gross muscle atrophy, no edema, no contractures Neuro: no focal neuro deficits Psych: Alert, oriented, appropriate affect Based on my assessment of this patient, this patient meets a high complexity level of care. 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 Repeat BCx until negative. ID on board. Acute on chronic diastolic CHF exacerbation: Lasix 40 mg IV QD. Strict intake and outtake. Daily weights. Daily monitoring to electrolytes and renal function. OPAL on CKD stage IV: Calcitriol 0.25 mg PO QSat. DM: ISS. Accuchecks ACHS. Hypoglycemic precautions. A-fib: Eliquis 2.5 mg PO BID for AC. Hypertension: Amlodipine 7.5 mg PO QD. Dyslipidemia: ASA 81 mg PO QD. Lipitor 10 mg PO QHS. CODE STATUS: NO CODE DVT Prophylaxis: Eliquis. GI Prophylaxis: Designated medical POA if patient is not able to make medical decisions for themselves: I have reviewed the following x ray consultant notes: Nephro I have reviewed the results of the following tests: CBC, BMP. BCx. I have ordered the following tests: Repeat BCx ordered. BMP tomorrow AM I have discussed the care of this patient with the following independent historian: RN. I have independently interpreted the following test below: I have discussed the management of this patient with the following physician: Dr. Crowley Objective - Vital Signs Vital signs: Vital Signs Temp 97.9 F 07/28/24 19:40 Pulse 60 07/29/24 03:41 Resp 16 07/29/24 03:41 BP 133/77 07/29/24 03:41 Pulse Ox 99 07/29/24 03:41 FiO2 Intake & Output 07/28/24 07/29/24 07/29/24 18:59 06:59 18:59 Intake Total 354 200 Output Total 800 300 Balance -446 -300 200 Weight 61 kg Intake: Oral 354 200 Output: Urine 800 300 Other: Voiding Method Indwelling Catheter Indwelling Catheter - Labs CBC & Chem 7: 07/29/24 06:05 07/29/24 06:05 Labs: Abnormal Lab Results - Last 24 Hours (Table) 07/28/24 07/28/24 07/29/24 Range/Units 11:31 20:32 06:05 WBC 12.7 H (3.8-10.6) k/uL RBC 2.62 L (3.80-5.40) m/uL Hgb 8.0 L (11.4-16.0) gm/dL Hct 27.0 L (34.0-46.0) % MCV 103.0 H (80.0-100.0) fL MCHC 29.7 L (31.0-37.0) g/dL RDW 18.9 H (11.5-15.5) % Sodium (137-145) mmol/L BUN (7-17) mg/dL Creatinine (0.52-1.04) mg/dL Glucose (74-99) mg/dL POC Glucose (mg/dL) 214 H 287 H (70-110) mg/dL 07/29/24 Range/Units 06:05 WBC (3.8-10.6) k/uL RBC (3.80-5.40) m/uL Hgb (11.4-16.0) gm/dL Hct (34.0-46.0) % MCV (80.0-100.0) fL MCHC (31.0-37.0) g/dL RDW (11.5-15.5) % Sodium 133 L (137-145) mmol/L BUN 66 H (7-17) mg/dL Creatinine 2.79 H (0.52-1.04) mg/dL Glucose 61 L (74-99) mg/dL POC Glucose (mg/dL) (70-110) mg/dL Microbiology - Last 24 Hours (Table) 07/26/24 10:07 Blood Culture Gram Stain - Preliminary Blood Blood Culture - Preliminary Enterococcus faecium
[2024-07-29 16:27] LABS: Glucose,Whole Blood 166 mg/dL (70-110)
--- NOTE | 2024-07-29 16:49 | P.PN ---
Subjective Progress Note Date: 07/29/24 HISTORY OF PRESENT ILLNESS: This is a 83-year-old female with a past medical history significant for co ronary artery disease with previous CABG, valvular heart disease with previous aortic valve replacement, chronic kidney disease, congestive heart failure, pulmonary hypertension, pacemaker implantation, permanent atrial fibrillation, recurrent pleural effusion with previous thoracentesis. Patient follows in the office with Dr. Barnett. We have been asked to see the patient in consultation for CHF. Patient examined at the bedside. Patient presented to the hospital with a chief complaint of shortness of breath. Patient states she started to feel short of breath yesterday. She also reports having some lower abdomen/suprapubic pain. Patient was found to have a UTI. She is currently on IV antibiotics. Patient was also found to be in acute CHF. She was started on IV diuretics. She reports improvement in her shortness of breath this morning. She denies any chest pain or pressure. DIAGNOSTICS: - EKG reveals ventricular paced rhythm. - Chest xray cardiomegaly. Left lower lobe infiltrate. Correlate for pneumonia or atelectasis. Small effusion may be present. - Laboratory data: WBC 14.3. Hemoglobin 8.8. Platelet count 283. Sodium 132. Potassium 4.9. BUN 50. Creatinine 2.63. Lactic acid 2.1. Troponin 0.015. 0.028. proBNP 8640. - Current home cardiac medications include Eliquis 2.5 mg twice a day, aspirin 81 mg daily, Lasix 40 mg daily, simvastatin 20 mg at night, Aldactone 12.5 mg daily, amlodipine 7.5 mg daily - Most recent echocardiogram obtained in June 2024 revealed ejection fraction 55 to 60%, moderate to severe pulmonary hypertension, moderate mitral s tenosis, moderate to severe mitral regurgitation, bioprosthetic aortic valve with peak gradient 26 mmHg and mean gradient 16 mmHg, mild prosthetic aortic regurgitation, moderate tricuspid regurgitation, no pericardial effusion, left pleural effusion 07/25/2024 Patient examined this morning at the bedside. She is sitting up in the chair. She denies chest pain or pressure. She continues to report shortness of breath, although improved from yesterday. She remains on IV diuretics with Lasix 40 mg every 12 hours. Creatinine today 2.59. 07/26/2024 Patient examined this morning at bedside. Patient currently denies chest pain or pressure. She reports improvement in her shortness of breath. She remains on IV Lasix 40 mg every 12 hours. Creatinine today 2.65. July 29, 2024 Patient seen and examined at bedside this a.m. She continues to be on IV antibiotics for Enterococcus faecalis. She denies having any active chest pain, chest pressure. PHYSICAL EXAM: VITAL SIGNS: Reviewed. GENERAL: Well-developed in no acute distress. HEENT: Head is normocephalic. Pupils are equal, round. Sclerae anicteric. Mucous membranes of the mouth are moist. Neck supple. Positive JVD LUNGS: Respirations even and unlabored. Lungs diminished bilaterally HEART: Regular rate and rhythm. S1 and S2 heard. 3/6 systolic murmur ABDOMEN: Soft. Nondistended. Nontender. EXTREMITIES: Normal range of motion. No clubbing or cyanosis. Peripheral pulses intact. 2+ bilateral lower extremity edema NEUROLOGIC: Awake and alert. Oriented x 3. ASSESSMENT: Infective endocarditis Acute on chronic heart failure with preserved EF, 55 to 60% Urinary tract infection Bacteremia, blood cultures positive for Enterococcus/VRE Coronary artery disease with previous CABG x 3 vessels, approximately 11 years ago Valvular heart disease including moderate mitral stenosis, moderate to severe mitral regurgitation, and moderate tricuspid regurgitation History of bioprosthetic aortic valve replacement Moderate to severe pulmonary hypertension Chronic kidney disease Permanent atrial fibrillation History of pacemaker implantation History of recurrent pleural effusion with thoracentesis Diabetes PLAN: Continue IV antibiotic and empirical treatment for infective endocarditis. No plan for PPM removal as per Dr. Ramsey. No evidence of vegetation on mitral and aortic valve or PPM leads. Continue current cardiac medications Farxiga contraindicated secondary to UTI and CKD Transition to p.o. Bumex 1 mg twice daily today Objective - Vital Signs Vital signs: Vital Signs Temp 96.8 F L 07/29/24 12:00 Pulse 66 07/29/24 15:28 Resp 16 07/29/24 15:28 BP 146/54 07/29/24 15:28 Pulse Ox 100 07/29/24 15:28 FiO2 Intake & Output 07/28/24 07/29/24 07/29/24 18:59 06:59 18:59 Intake Total 354 320 Output Total 800 300 250 Balance -446 -300 70 Weight 61 kg Intake: Oral 354 320 Output: Urine 800 300 250 Other: Voiding Method Indwelling Catheter Indwelling Catheter Indwelling Catheter # Bowel Movements 1 - Labs CBC & Chem 7: 07/29/24 06:05 07/29/24 06:05 Labs: Abnormal Lab Results - Last 24 Hours (Table) 07/28/24 07/29/24 07/29/24 Range/Units 20:32 06:05 06:05 WBC 12.7 H (3.8-10.6) k/uL RBC 2.62 L (3.80-5.40) m/uL Hgb 8.0 L (11.4-16.0) gm/dL Hct 27.0 L (34.0-46.0) % MCV 103.0 H (80.0-100.0) fL MCHC 29.7 L (31.0-37.0) g/dL RDW 18.9 H (11.5-15.5) % Sodium 133 L (137-145) mmol/L BUN 66 H (7-17) mg/dL Creatinine 2.79 H (0.52-1.04) mg/dL Glucose 61 L (74-99) mg/dL POC Glucose (mg/dL) 287 H (70-110) mg/dL 07/29/24 07/29/24 Range/Units 11:26 16:24 WBC (3.8-10.6) k/uL RBC (3.80-5.40) m/uL Hgb (11.4-16.0) gm/dL Hct (34.0-46.0) % MCV (80.0-100.0) fL MCHC (31.0-37.0) g/dL RDW (11.5-15.5) % Sodium (137-145) mmol/L BUN (7-17) mg/dL Creatinine (0.52-1.04) mg/dL Glucose (74-99) mg/dL POC Glucose (mg/dL) 229 H 166 H (70-110) mg/dL Microbiology - Last 24 Hours (Table) 07/26/24 10:07 Blood Culture Gram Stain - Preliminary Blood Blood Culture - Preliminary Enterococcus faecium VRE Staphylococcus epidermidis 07/28/24 05:28 Blood Culture Gram Stain - Preliminary Blood Blood Culture - Preliminary Molecular ID
[2024-07-29 20:36] LABS: Glucose,Whole Blood 272 mg/dL (70-110)
[2024-07-30 04:26] LABS: Anisocytosis Slight; HCT 23.9 % (34.0-46.0); HGB 7.4 gm/dL (11.4-16.0); Hypochromasia Moderate; MCH 31.3 pg (25.0-35.0); MCHC 30.9 g/dL (31.0-37.0); MCV 101.5 fL (80.0-100.0); Macrocytosis Moderate; Mean Platelet Volume 9.3; Platelet Count 313 k/uL (150-450); RBC 2.35 m/uL (3.80-5.40); WBC 12.4 k/uL (3.8-10.6)
[2024-07-30 05:24] LABS: African American GFR (CKD) 17 (>60 ml/min/1.73 sqM); Anion Gap 7 mmol/L; Blood Urea Nitrogen 69 mg/dL (7-17); Calcium 8.5 mg/dL (8.4-10.2); Carbon Dioxide 26 mmol/L (22-30); Chloride 100 mmol/L (98-107); Glucose 91 mg/dL (74-99); Magnesium 2.1 mg/dL (1.6-2.3); Non-African American GFR(CKD) 15 (>60 ml/min/1.73 sqM); Potassium 4.4 mmol/L (3.5-5.1); Sodium 133 mmol/L (137-145)
[2024-07-30 06:11] LABS: Glucose,Whole Blood 110 mg/dL (70-110)
[2024-07-30] MEDS: BUMETANIDE 1 MG TAB PO SCH (08:40)
--- NOTE | 2024-07-30 08:53 | P.PN ---
Subjective Patient is seen in follow-up for acute kidney injury on chronic kidney disease. Renal function stable. On IV Lasix. Nonoliguric. Denies chest pain or shortness of breath. Vital signs are stable. General: No acute distress. HEENT: Head exam is unremarkable. On 2 L nasal cannula. LUNGS: No audible rhonchi or wheezes. HEART: Rate and Rhythm are regular. ABDOMEN: Nontender. EXTREMITITES: Erythema noted. 1+ edema. Objective - Vital Signs Vital signs: Vital Signs Temp 97.7 F 07/30/24 08:00 Pulse 61 07/30/24 08:00 Resp 20 07/30/24 08:00 BP 131/56 07/30/24 08:00 Pulse Ox 99 07/30/24 08:00 FiO2 Intake & Output 07/29/24 07/30/24 07/30/24 18:59 06:59 18:59 Intake Total 520 360 Output Total 250 400 Balance 270 -400 360 Weight 55 kg Intake: Oral 520 360 Output: Urine 250 400 Other: Voiding Method Indwelling Catheter Indwelling Catheter # Bowel Movements 1 - Labs CBC & Chem 7: 07/30/24 04:09 07/30/24 04:09 Labs: Abnormal Lab Results - Last 24 Hours (Table) 07/29/24 07/29/24 07/29/24 Range/Units 11:26 16:24 20:34 WBC (3.8-10.6) k/uL RBC (3.80-5.40) m/uL Hgb (11.4-16.0) gm/dL Hct (34.0-46.0) % MCV (80.0-100.0) fL MCHC (31.0-37.0) g/dL RDW (11.5-15.5) % Sodium (137-145) mmol/L BUN (7-17) mg/dL Creatinine (0.52-1.04) mg/dL POC Glucose (mg/dL) 229 H 166 H 272 H (70-110) mg/dL 07/30/24 07/30/24 Range/Units 04:09 04:09 WBC 12.4 H (3.8-10.6) k/uL RBC 2.35 L (3.80-5.40) m/uL Hgb 7.4 L (11.4-16.0) gm/dL Hct 23.9 L (34.0-46.0) % MCV 101.5 H (80.0-100.0) fL MCHC 30.9 L (31.0-37.0) g/dL RDW 19.0 H (11.5-15.5) % Sodium 133 L (137-145) mmol/L BUN 69 H (7-17) mg/dL Creatinine 2.80 H (0.52-1.04) mg/dL POC Glucose (mg/dL) (70-110) mg/dL Microbiology - Last 24 Hours (Table) 07/26/24 10:07 Blood Culture Gram Stain - Preliminary Blood Blood Culture - Preliminary Enterococcus faecium VRE Staphylococcus epidermidis 07/28/24 05:28 Blood Culture Gram Stain - Preliminary Blood Blood Culture - Preliminary Molecular ID Assessment and Plan Plan: Assessment: 1. Acute kidney injury secondary to ATN secondary to severe sepsis and cardiorenal syndrome. Creatinine peaked at 2.94 this admission and is stable at 2.8 today. 2. Chronic kidney disease stage IV with baseline creatinine 2.3-2.6. 3. Volume overload. Improving with diuresis. 4. MRSA bacteremia maintained on daptomycin. ID following. BALTAZAR concerning for vegetation on pacemaker lead. 5. Acute on chronic diastolic CHF with mild to moderate mitral stenosis, moderate to severe mitral regurgitation and moderate tricuspid regurgitation. 6. Chronic kidney disease mineral bone disease maintained on calcitriol. 7. Hypertension with chronic kidney disease. Controlled. 8. Anemia of chronic kidney disease. On Aranesp. Plan: Maintain IV Lasix. Continue to monitor renal function and urine output. Avoid nephrotoxins.
--- NOTE | 2024-07-30 11:04 | P.PN ---
Subjective Progress Note Date: 07/29/24 Principal diagnosis: Reason for follow-up is VRE bacteremia Patient is a 83-year-old female with a past medical history significant for diabetes mellitus hypertension hyperlipidemia heart failure coronary disease patient presented to hospital with increasing shortness of breath did have a positive blood culture VRE prompted this consultation, Patient is status post BALTAZAR completed concerning for vegetation on the pacemaker lead On today's evaluation that is 07/29/2024,the patient remains to be afebrile, patient is on 2 L nasal cannula supplemental oxygen and denies any shortness of breath no chest pain or cough.Patient denies having any nausea or vomiting, no abdominal pain and no diarrhea has been reported. Patient white count is 12.7 creatinine is 2.79 blood culture from 10 are also positive Objective - Vital Signs Vital signs: Vital Signs Temp 97.4 F L 07/29/24 09:05 Pulse 65 07/29/24 09:05 Resp 16 07/29/24 09:05 BP 152/57 07/29/24 09:05 Pulse Ox 98 07/29/24 09:05 FiO2 Intake & Output 07/28/24 07/29/24 07/29/24 18:59 06:59 18:59 Intake Total 354 200 Output Total 800 300 Balance -446 -300 200 Weight 61 kg Intake: Oral 354 200 Output: Urine 800 300 Other: Voiding Method Indwelling Catheter Indwelling Catheter Indwelling Catheter - Exam GENERAL DESCRIPTION: An elderly female up in bed in no distress RESPIRATORY SYSTEM: Unlabored breathing , decreased breath sounds at bases HEART: S1 S2 regular rate and rhythm , ABDOMEN: Soft , no tenderness EXTREMITIES: No edema feet - Labs CBC & Chem 7: 07/29/24 06:05 07/29/24 06:05 Labs: Abnormal Lab Results - Last 24 Hours (Table) 07/28/24 07/29/24 07/29/24 Range/Units 20:32 06:05 06:05 WBC 12.7 H (3.8-10.6) k/uL RBC 2.62 L (3.80-5.40) m/uL Hgb 8.0 L (11.4-16.0) gm/dL Hct 27.0 L (34.0-46.0) % MCV 103.0 H (80.0-100.0) fL MCHC 29.7 L (31.0-37.0) g/dL RDW 18.9 H (11.5-15.5) % Sodium 133 L (137-145) mmol/L BUN 66 H (7-17) mg/dL Creatinine 2.79 H (0.52-1.04) mg/dL Glucose 61 L (74-99) mg/dL POC Glucose (mg/dL) 287 H (70-110) mg/dL 07/29/24 Range/Units 11:26 WBC (3.8-10.6) k/uL RBC (3.80-5.40) m/uL Hgb (11.4-16.0) gm/dL Hct (34.0-46.0) % MCV (80.0-100.0) fL MCHC (31.0-37.0) g/dL RDW (11.5-15.5) % Sodium (137-145) mmol/L BUN (7-17) mg/dL Creatinine (0.52-1.04) mg/dL Glucose (74-99) mg/dL POC Glucose (mg/dL) 229 H (70-110) mg/dL Microbiology - Last 24 Hours (Table) 07/26/24 10:07 Blood Culture Gram Stain - Preliminary Blood Blood Culture - Preliminary Enterococcus faecium VRE Staphylococcus epidermidis 07/28/24 05:28 Blood Culture Gram Stain - Preliminary Blood Blood Culture - Preliminary Molecular ID Assessment and Plan (1) Allergy to multiple antibiotics Current Visit: No Status: Acute Code(s): Z88.1 - ALLERGY STATUS TO OTHER ANTIBIOTIC AGENTS SNOMED Code(s): 981880122 (2) UTI (urinary tract infection) Current Visit: No Status: Acute Code(s): N39.0 - URINARY TRACT INFECTION, SITE NOT SPECIFIED SNOMED Code(s): 45342963 (3) VRE bacteremia Current Visit: No Status: Acute Code(s): R78.81 - BACTEREMIA; B95.2 - ENTEROCOCCUS THE CAUSE OF DISEASES CLASSIFIED ELSEWHERE; Z16.21 - RESISTANCE TO VANCOMYCIN SNOMED Code(s): 7003512905 Plan: 1patient with the VRE bacteremia in this patient presented to hospital with increasing shortness of breath patient did have a episode of VRE bacteremia on 06/17/2024 with a blood culture negative on 06/20/2024 and was thought to be related to colitis as she did have abnormal CT and urine grew Ivory on that admission now presenting back to the hospital with increasing shortness of breath and tested positive again Enterococcus faecium that is not VRE, high clin ical suspicion for possible endovascular source, patient did have a BALTAZAR concerning for vegetation on the pacemaker lead 2-blood cultures repeat on 07/25/2024 as well as 07/26/2024 positive blood culture to be repeated to document clearance of bacteremia 3-patient did have persistent bacteremia cannot use gentamicin for synergistic because of her kidney function we will increase the dose of daptomycin to 10 mg/kg q. 48-hour Dictation was produced using [employer] dictation software. please excuse any grammatical, word or spelling errors.
--- NOTE | 2024-07-30 11:32 | XR ---
EXAMINATION TYPE: XR chest 1V portable DATE OF EXAM: 07/30/2024 Comparison: 07/28/2024 Clinical History: 83-year-old female SOB Findings: Similar moderate to large left pleural effusion. Severe degenerative changes both shoulders. The left heart margin is partially obscured by the adjacent pleural parenchymal opacity. Right lung appears c lear. Left anterior chest wall pacemaker generator with right atrial and biventricular leads. Median sternotomy wires and post-CABG clips as well as cholecystectomy clips. Impression: Similar moderate to large left pleural effusion with adjacent atelectasis and/or consolidation. [facility], , 07/30/2024 11:29 AM
--- NOTE | 2024-07-30 11:37 | P.PN ---
Subjective Progress Note Date: 07/30/24 83 year old F with PMH of CHF, COPD on 2L home O2, CKD stage IV chronic Ordoñez catheter presents to the ED for SOB and dysuria. In the ED she underwent extensive evaluation. BP 145/90, HR 60, T 98.4, RR 18, 94% on 2L. CBC, Coag panel, CMP significant for WBC 14.3, RBC 2.81, Hg 8.8, Hct 28.2, MCV 100.3, Na 130, K 6.2, Cl 96, BUN 49, Cr 2.39, glu 319, AST 51, alk phos 351, alb 3.2. Lactic acid 2.1. Mag 1.9. Troponin 0.015, 0.028. BNP 8640. Lipase 139. UA large LE. CXR cardiomegaly with LLL infiltrate. EKG ventricular pacemaker. CT AP basilar pleural effusions with compressive atelectasis and anasarca. Patient was admitted for further workup and management. Started on Laisx IV BID for diastolic CHF exacerbation and Cardiology consulted. Started on Rocephin IV for treatment of UTI. BCx came back + for VRE. Rocephin switched to Daptomycin and ID consulted. Underwent BALTAZAR on 07/27 which showed 0.8 x 0.8 cm density in the right atrium attached to the right atrial pacemaker lead. Cardiology with no plans to remove pacemaker at this time. 07/30 Patient was seen and examined. She reports some shortness of breath this morning. Maintained on Daptomycin 350 mg IV Q48H. Cardiology recommended switchi ng IV Lasix to Bumex PO. CBC and BMP significant for WBC 12.4, RBC 2.35, Hg 7.4, Hct 23.9, MCV 101.5, Na 133, BUN 69, Cr 2.8. Mag 2.1. 07/28 BCx positive for Enterococcus faecium. Repeat BCx ordered 07/29. I have ordered a CXR which is pending. General: non toxic, no distress, appears at stated age Derm: warm, dry Head: atraumatic, normocephalic, symmetric Eyes: EOMI, no lid lag, anicteric sclera Mouth: no lip lesion, mucus membranes moist Cardiovascular: S1S2 reg, no murmur Lungs: Decreased BS bilateral, no rhonchi, no rales, no accessory muscle use Ext: no gross muscle atrophy, no edema, no contractures Neuro: no focal neuro deficits Psych: Alert, oriented, appropriate affect Based on my assessment of this patient, this patient meets a high complexity level of care. 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 Per Cardiology, no plans for removing pacemaker. Repeat BCx until negative. ID on board. Acute on chronic diastolic CHF exacerbation: Transitioned Lasix 40 mg IV QD to Bumex 1 mg PO BID. Strict intake and outtake. Daily weights. Cardiology on board. OPAL on CKD stage IV: Calcitriol 0.25 mg PO QSat. Nephrology on board. DM: ISS. Accuchecks ACHS. Hypoglycemic precautions. A-fib: Eliquis 2.5 mg PO BID for AC. Hypertension: Amlodipine 7.5 mg PO QD. Dyslipidemia: ASA 81 mg PO QD. Lipitor 10 mg PO QHS. CODE STATUS: NO CODE DVT Prophylaxis: Eliquis. GI Prophylaxis: Designated medical POA if patient is not able to make medical decisions for themselves: I have reviewed the following professional benefits sales consultant notes: Cardiology, ID I have reviewed the results of the following tests: CBC, BMP, Mg, BCx. I have ordered the following tests: CXR ordered this morning. I have discussed the care of this patient with the following independent historian: I have independently interpreted the following test below: I have discussed the management of this patient with the following physician: Objective - Vital Signs Vital signs: Vital Signs Temp 97.3 F L 07/30/24 04:00 Pulse 60 07/30/24 04:00 Resp 16 07/30/24 04:00 BP 143/92 07/30/24 04:00 Pulse Ox 100 07/30/24 04:00 FiO2 Intake & Output 07/29/24 07/30/24 07/30/24 18:59 06:59 18:59 Intake Total 520 Output Total 250 400 Balance 270 -400 Weight 55 kg Intake: Oral 520 Output: Urine 250 400 Other: Voiding Method Indwelling Catheter Indwelling Catheter # Bowel Movements 1 - Labs CBC & Chem 7: 07/30/24 04:09 07/30/24 04:09 Labs: Abnormal Lab Results - Last 24 Hours (Table) 07/29/24 07/29/24 07/29/24 Range/Units 11:26 16:24 20:34 WBC (3.8-10.6) k/uL RBC (3.80-5.40) m/uL Hgb (11.4-16.0) gm/dL Hct (34.0-46.0) % MCV (80.0-100.0) fL MCHC (31.0-37.0) g/dL RDW (11.5-15.5) % Sodium (137-145) mmol/L BUN (7-17) mg/dL Creatinine (0.52-1.04) mg/dL POC Glucose (mg/dL) 229 H 166 H 272 H (70-110) mg/dL 07/30/24 07/30/24 Range/Units 04:09 04:09 WBC 12.4 H (3.8-10.6) k/uL RBC 2.35 L (3.80-5.40) m/uL Hgb 7.4 L (11.4-16.0) gm/dL Hct 23.9 L (34.0-46.0) % MCV 101.5 H (80.0-100.0) fL MCHC 30.9 L (31.0-37.0) g/dL RDW 19.0 H (11.5-15.5) % Sodium 133 L (137-145) mmol/L BUN 69 H (7-17) mg/dL Creatinine 2.80 H (0.52-1.04) mg/dL POC Glucose (mg/dL) (70-110) mg/dL Microbiology - Last 24 Hours (Table) 07/26/24 10:07 Blood Culture Gram Stain - Preliminary Blood Blood Culture - Preliminary Enterococcus faecium VRE Staphylococcus epidermidis 07/28/24 05:28 Blood Culture Gram Stain - Preliminary Blood Blood Culture - Preliminary Molecular ID
[2024-07-30 11:56] LABS: Glucose,Whole Blood 129 mg/dL (70-110)
--- NOTE | 2024-07-30 13:25 | P.PN ---
Subjective Progress Note Date: 07/30/24 Principal diagnosis: Reason for follow-up is VRE bacteremia Patient is a 83-year-old female with a past medical history significant for diabetes mellitus hypertension hyperlipidemia heart failure coronary disease patient presented to hospital with increasing shortness of breath did have a positive blood culture VRE prompted this consultation, Patient is status post BALTAZAR completed concerning for vegetation on the pacemaker lead On today's evaluation that is 07/30/2024, the patient continues to be afebrile, the patient is on 2 L nasal cannula oxygen and breathing comfortably, the Pt denies having any chest pain or cough, the patient denies having any abdominal pain no vomiting or any diarrhea has been reported. Patient white count is 12.4 creatinine is 2.80 blood culture repeated yesterday currently pending Objective - Vital Signs Vital signs: Vital Signs Temp 97.7 F 07/30/24 08:00 Pulse 61 07/30/24 08:00 Resp 20 07/30/24 08:00 BP 131/56 07/30/24 08:00 Pulse Ox 99 07/30/24 08:00 FiO2 Intake & Output 07/29/24 07/30/24 07/30/24 18:59 06:59 18:59 Intake Total 520 360 Output Total 250 400 Balance 270 -400 360 Weight 55 kg Intake: Oral 520 360 Output: Urine 250 400 Other: Voiding Method Indwelling Catheter Indwelling Catheter Indwelling Catheter # Bowel Movements 1 - Exam GENERAL DESCRIPTION: An elderly female up in bed in no distress RESPIRATORY SYSTEM: Unlabored breathing , decreased breath sounds at bases HEART: S1 S2 regular rate and rhythm , ABDOMEN: Soft , no tenderness EXTREMITIES: No edema feet - Labs CBC & Chem 7: 07/30/24 04:09 07/30/24 04:09 Labs: Abnormal Lab Results - Last 24 Hours (Table) 07/29/24 07/29/24 07/29/24 Range/Units 11:26 16:24 20:34 WBC (3.8-10.6) k/uL RBC (3.80-5.40) m/uL Hgb (11.4-16.0) gm/dL Hct (34.0-46.0) % MCV (80.0-100.0) fL MCHC (31.0-37.0) g/dL RDW (11.5-15.5) % Sodium (137-145) mmol/L BUN (7-17) mg/dL Creatinine (0.52-1.04) mg/dL POC Glucose (mg/dL) 229 H 166 H 272 H (70-110) mg/dL 07/30/24 07/30/24 Range/Units 04:09 04:09 WBC 12.4 H (3.8-10.6) k/uL RBC 2.35 L (3.80-5.40) m/uL Hgb 7.4 L (11.4-16.0) gm/dL Hct 23.9 L (34.0-46.0) % MCV 101.5 H (80.0-100.0) fL MCHC 30.9 L (31.0-37.0) g/dL RDW 19.0 H (11.5-15.5) % Sodium 133 L (137-145) mmol/L BUN 69 H (7-17) mg/dL Creatinine 2.80 H (0.52-1.04) mg/dL POC Glucose (mg/dL) (70-110) mg/dL Microbiology - Last 24 Hours (Table) 07/26/24 10:07 Blood Culture Gram Stain - Final Blood Blood Culture - Final Enterococcus faecium VRE Staphylococcus epidermidis 07/28/24 05:28 Blood Culture Gram Stain - Preliminary Blood Blood Culture - Preliminary Molecular ID Assessment and Plan (1) Allergy to multiple antibiotics Current Visit: No Status: Acute Code(s): Z88.1 - SNOMED Code(s): 420815925 (2) UTI (urinary tract infection) Current Visit: No Status: Acute Code(s): N39.0 - URINARY TRACT INFECTION, SITE NOT SPECIFIED SNOMED Code(s): 83171854 (3) VRE bacteremia Current Visit: No Status: Acute Code(s): R78.81 - BACTEREMIA; B95.2 - ENTEROCOCCUS THE CAUSE OF DISEASES CLASSIFIED ELSEWHERE; Z16.21 - SNOMED Code(s): 2501702494 Plan: 1patient with the VRE bacteremia in this patient presented to hospital with increasing shortness of breath patient did have a episode of VRE bacteremia on 06/17/2024 with a blood culture negative on 06/20/2024 and was thought to be rel ated to colitis as she did have abnormal CT and urine grew Ivory on that admission now presenting back to the hospital with increasing shortness of breath and tested positive again Enterococcus faecium that is not VRE, high clinical suspicion for possible endovascular source, patient did have a BALTAZAR concerning for vegetation on the pacemaker lead 2-blood cultures repeat on 07/25/2024 as well as 07/26/2024 positive blood culture repeated 07/29/2024 to document clearance of bacteremia 3-patient did have persistent bacteremia, dose of daptomycin has been increased to 10 mg/kg q. 48-hour as of 07/29/2024 and will see clinical response Dictation was produced using [employer] dictation software. please excuse any grammatical, word or spelling errors. Time with Patient: Less than 30
[2024-07-30 16:47] LABS: Glucose,Whole Blood 188 mg/dL (70-110)
--- NOTE | 2024-07-30 17:12 | P.PN ---
Subjective Progress Note Date: 07/30/24 HISTORY OF PRESENT ILLNESS: This is a 83-year-old female with a past medical history significant for co ronary artery disease with previous CABG, valvular heart disease with previous aortic valve replacement, chronic kidney disease, congestive heart failure, pulmonary hypertension, pacemaker implantation, permanent atrial fibrillation, recurrent pleural effusion with previous thoracentesis. Patient follows in the office with Dr. Barnett. We have been asked to see the patient in consultation for CHF. Patient examined at the bedside. Patient presented to the hospital with a chief complaint of shortness of breath. Patient states she started to feel short of breath yesterday. She also reports having some lower abdomen/suprapubic pain. Patient was found to have a UTI. She is currently on IV antibiotics. Patient was also found to be in acute CHF. She was started on IV diuretics. She reports improvement in her shortness of breath this morning. She denies any chest pain or pressure. DIAGNOSTICS: - EKG reveals ventricular paced rhythm. - Chest xray cardiomegaly. Left lower lobe infiltrate. Correlate for pneumonia or atelectasis. Small effusion may be present. - Laboratory data: WBC 14.3. Hemoglobin 8.8. Platelet count 283. Sodium 132. Potassium 4.9. BUN 50. Creatinine 2.63. Lactic acid 2.1. Troponin 0.015. 0.028. proBNP 8640. - Current home cardiac medications include Eliquis 2.5 mg twice a day, aspirin 81 mg daily, Lasix 40 mg daily, simvastatin 20 mg at night, Aldactone 12.5 mg daily, amlodipine 7.5 mg daily - Most recent echocardiogram obtained in June 2024 revealed ejection fraction 55 to 60%, moderate to severe pulmonary hypertension, moderate mitral s tenosis, moderate to severe mitral regurgitation, bioprosthetic aortic valve with peak gradient 26 mmHg and mean gradient 16 mmHg, mild prosthetic aortic regurgitation, moderate tricuspid regurgitation, no pericardial effusion, left pleural effusion 07/25/2024 Patient examined this morning at the bedside. She is sitting up in the chair. She denies chest pain or pressure. She continues to report shortness of breath, although improved from yesterday. She remains on IV diuretics with Lasix 40 mg every 12 hours. Creatinine today 2.59. 07/26/2024 Patient examined this morning at bedside. Patient currently denies chest pain or pressure. She reports improvement in her shortness of breath. She remains on IV Lasix 40 mg every 12 hours. Creatinine today 2.65. July 29, 2024 Patient seen and examined at bedside this a.m. She continues to be on IV antibiotics for Enterococcus faecalis. She denies having any active chest pain, chest pressure. July 30, 2024 Patient is doing well on current regimen. Denies any chest pain chest pressure. This morning after having breakfast she got respiratory distress which resolved with conservative management. PHYSICAL EXAM: VITAL SIGNS: Reviewed. GENERAL: Well-developed in no acute distress. HEENT: Head is normocephalic. Pupils are equal, round. Sclerae anicteric. Mucous membranes of the mouth are moist. Neck supple. Positive JVD LUNGS: Respirations even and unlabored. Lungs diminished bilaterally HEART: Regular rate and rhythm. S1 and S2 heard. 3/6 systolic murmur ABDOMEN: Soft. Nondistended. Nontender. EXTREMITIES: Normal range of motion. No clubbing or cyanosis. Peripheral pulses intact. 2+ bilateral lower extremity edema NEUROLOGIC: Awake and alert. Oriented x 3. ASSESSMENT: Infective endocarditis Acute on chronic heart failure with preserved EF, 55 to 60% Urinary tract infection Bacteremia, blood cultures positive for Enterococcus/VRE Coronary artery disease with previous CABG x 3 vessels, approximately 11 years ago Valvular heart disease including moderate mitral stenosis, moderate to severe mitral regurgitation, and moderate tricuspid regurgitation History of bioprosthetic aortic valve replacement Moderate to severe pulmonary hypertension Chronic kidney disease Permanent atrial fibrillation History of pacemaker implantation History of recurrent pleural effusion with thoracentesis Diabetes PLAN: Continue IV antibiotic and empirical treatment for infective endocarditis. No plan for PPM removal as per Dr. Ramsey. No evidence of vegetation on mitral and aortic valve or PPM leads. Continue current cardiac medications Farxiga contraindicated secondary to UTI and CKD Continue Bumex 1 mg p.o. twice daily At this time patient is stable from cardiovascular standpoint. Would recommend outpatient follow-up with primary lawn service supervisor. Cardiology team will sign off at this time. Please reconsult us in case of any question. Objective - Vital Signs Vital signs: Vital Signs Temp 97.8 F 07/30/24 16:27 Pulse 60 07/30/24 16:27 Resp 20 07/30/24 16:27 BP 146/58 07/30/24 16:27 Pulse Ox 98 07/30/24 16:27 FiO2 Intake & Output 07/29/24 07/30/24 07/30/24 18:59 06:59 18:59 Intake Total 520 360 Output Total 250 400 Balance 270 -400 360 Weight 55 kg Intake: Oral 520 360 Output: Urine 250 400 Other: Voiding Method Indwelling Catheter Indwelling Catheter Indwelling Catheter # Bowel Movements 1 - Labs CBC & Chem 7: 07/30/24 04:09 07/30/24 04:09 Labs: Abnormal Lab Results - Last 24 Hours (Table) 07/26/24 07/27/24 07/29/24 Range/Units 06:55 06:30 20:34 WBC (3.8-10.6) k/uL RBC (3.80-5.40) m/uL Hgb (11.4-16.0) gm/dL Hct (34.0-46.0) % MCV (80.0-100.0) fL MCHC (31.0-37.0) g/dL RDW (11.5-15.5) % Sodium (137-145) mmol/L BUN (7-17) mg/dL Creatinine (0.52-1.04) mg/dL POC Glucose (mg/dL) 272 H (70-110) mg/dL Total Creatine Kinase 18 L 18 L (30-223) u/L CK-MM (CK-3) 95.5 L (96.7-100.0) % CK-BB (CK-1) 4.5 H (0.0) % 07/30/24 07/30/24 07/30/24 Range/Units 04:09 04:09 11:54 WBC 12.4 H (3.8-10.6) k/uL RBC 2.35 L (3.80-5.40) m/uL Hgb 7.4 L (11.4-16.0) gm/dL Hct 23.9 L (34.0-46.0) % MCV 101.5 H (80.0-100.0) fL MCHC 30.9 L (31.0-37.0) g/dL RDW 19.0 H (11.5-15.5) % Sodium 133 L (137-145) mmol/L BUN 69 H (7-17) mg/dL Creatinine 2.80 H (0.52-1.04) mg/dL POC Glucose (mg/dL) 129 H (70-110) mg/dL Total Creatine Kinase (30-223) u/L CK-MM (CK-3) (96.7-100.0) % CK-BB (CK-1) (0.0) % 07/30/24 Range/Units 16:44 WBC (3.8-10.6) k/uL RBC (3.80-5.40) m/uL Hgb (11.4-16.0) gm/dL Hct (34.0-46.0) % MCV (80.0-100.0) fL MCHC (31.0-37.0) g/dL RDW (11.5-15.5) % Sodium (137-145) mmol/L BUN (7-17) mg/dL Creatinine (0.52-1.04) mg/dL POC Glucose (mg/dL) 188 H (70-110) mg/dL Total Creatine Kinase (30-223) u/L CK-MM (CK-3) (96.7-100.0) % CK-BB (CK-1) (0.0) % Microbiology - Last 24 Hours (Table) 07/26/24 10:07 Blood Culture Gram Stain - Final Blood Blood Culture - Final Enterococcus faecium VRE Staphylococcus epidermidis
[2024-07-30 19:51] LABS: Glucose,Whole Blood 184 mg/dL (70-110)
[2024-07-31 06:11] LABS: Glucose,Whole Blood 117 mg/dL (70-110)
--- NOTE | 2024-07-31 10:13 | P.PN ---
Subjective Patient is seen in follow-up for acute kidney injury on chronic kidney disease. Renal function stable as of yesterday. On oral diuretics. Nonoliguric. Denies chest pain or shortness of breath. Vital signs are stable. General: No acute distress. HEENT: Head exam is unremarkable. On 2 L nasal cannula. LUNGS: No audible rhonchi or wheezes. HEART: Rate and Rhythm are regular. ABDOMEN: Nontender. EXTREMITITES: Erythema noted. 1+ edema. Objective - Vital Signs Vital signs: Vital Signs Temp 97.8 F 07/31/24 09:30 Pulse 60 07/31/24 09:30 Resp 16 07/31/24 09:30 BP 148/52 07/31/24 09:30 Pulse Ox 96 07/31/24 09:30 FiO2 Intake & Output 07/30/24 07/31/24 07/31/24 18:59 06:59 18:59 Intake Total 836 120 Output Total 500 Balance 336 120 Weight 55 kg Intake: Oral 836 120 Output: Urine 500 Other: Voiding Method Indwelling Catheter Indwelling Catheter Indwelling Catheter # Voids 0 # Bowel Movements 1 - Labs CBC & Chem 7: 07/30/24 04:09 07/30/24 04:09 Labs: Abnormal Lab Results - Last 24 Hours (Table) 07/26/24 07/27/24 07/30/24 Range/Units 06:55 06:30 11:54 POC Glucose (mg/dL) 129 H (70-110) mg/dL Total Creatine Kinase 18 L 18 L (30-223) u/L CK-MM (CK-3) 95.5 L (96.7-100.0) % CK-BB (CK-1) 4.5 H (0.0) % 07/30/24 07/30/24 07/31/24 Range/Units 16:44 19:50 06:09 POC Glucose (mg/dL) 188 H 184 H 117 H (70-110) mg/dL Total Creatine Kinase (30-223) u/L CK-MM (CK-3) (96.7-100.0) % CK-BB (CK-1) (0.0) % Microbiology - Last 24 Hours (Table) 07/28/24 05:28 Blood Culture Gram Stain - Final Blood Blood Culture - Final Enterococcus faecium 07/29/24 13:21 Blood Culture - Preliminary Blood 07/26/24 10:07 Blood Culture Gram Stain - Final Blood Blood Culture - Final Enterococcus faecium VRE Staphylococcus epidermidis Assessment and Plan Plan: Assessment: 1. Acute kidney injury secondary to ATN secondary to severe sepsis and c ardiorenal syndrome. Creatinine peaked at 2.94 this admission and is stable at 2.8 yesterday. 2. Chronic kidney disease stage IV with baseline creatinine 2.3-2.6. 3. Volume overload. Improved with diuresis. 4. MRSA bacteremia maintained on daptomycin. ID following. BALTAZAR concerning for vegetation on pacemaker lead. 5. Acute on chronic diastolic CHF with mild to moderate mitral stenosis, mode rate to severe mitral regurgitation and moderate tricuspid regurgitation. 6. Chronic kidney disease mineral bone disease maintained on calcitriol. 7. Hypertension with chronic kidney disease. Controlled. 8. Anemia of chronic kidney disease. On Aranesp. Plan: Maintain oral Bumex. Continue to monitor renal function and urine output. Avoid nephrotoxins.
[2024-07-31 11:23] LABS: Glucose,Whole Blood 263 mg/dL (70-110)
--- NOTE | 2024-07-31 12:07 | P.PN ---
Subjective Progress Note Date: 07/31/24 83 year old F with PMH of CHF, COPD on 2L home O2, CKD stage IV chronic Ordoñez catheter presents to the ED for SOB and dysuria. In the ED she underwent extensive evaluation. BP 145/90, HR 60, T 98.4, RR 18, 94% on 2L. CBC, Coag panel, CMP significant for WBC 14.3, RBC 2.81, Hg 8.8, Hct 28.2, MCV 100.3, Na 130, K 6.2, Cl 96, BUN 49, Cr 2.39, glu 319, AST 51, alk phos 351, alb 3.2. Lactic acid 2.1. Mag 1.9. Troponin 0.015, 0.028. BNP 8640. Lipase 139. UA large LE. CXR cardiomegaly with LLL infiltrate. EKG ventricular pacemaker. CT AP basilar pleural effusions with compressive atelectasis and anasarca. Patient was admitted for further workup and management. Started on Laisx IV BID for diastolic CHF exacerbation and Cardiology consulted. Eventually transitioned to Bumex 1 mg PO BID. Started on Rocephin IV for treatment of UTI. BCx came back + for VRE. Rocephin switched to Daptomycin and ID consulted. Underwent BALTAZAR on 07/27 which showed 0.8 x 0.8 cm density in the right atrium attached to the right atrial pacemaker lead. Cardiology with no plans to remove pacemaker at this time. 07/31 Patient was seen and examined. Patient appears extremely debilitated. States she is too weak to sit up. CXR done yesterday shows moderate to large left pleural effusion which is chronic in nature. Maintained on Daptomycin 350 mg IV Q48H. 07/28 BCx positive for Enterococcus faecium. 07/29 BCx prelim negative at 24H. General: non toxic, no distress, appears at stated age Derm: warm, dry Head: atraumatic, normocephalic, symmetric Eyes: EOMI, no lid lag, anicteric sclera Mouth: no lip lesion, mucus membranes moist Cardiovascular: S1S2 reg, no murmur Lungs: Decreased BS bilateral, no rhonchi, no rales, no accessory muscle use Ext: no gross muscle atrophy, no edema, no contractures Neuro: no focal neuro deficits Psych: Alert, oriented, appropriate affect Based on my assessment of this patient, this patient meets a high complexity level of care. 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 Per Cardiology, no plans for removing pacemaker. Repeat BCx until negative. ID on board. Acute on chronic diastolic CHF exacerbation: Bumex 1 mg PO BID. Strict intake and outtake. Daily weights. Cardiology on board. Left pleural effusion: Chronic in nature. Previously underwent thoracentesis in April with Dr. Cagle. Currently at her baseline O2 with minimal complaints. Outpatient Pulmonary follow up. OPAL on CKD stage IV: Calcitriol 0.25 mg PO QSat. Nephrology on board. DM: ISS. Accuchecks ACHS. Hypoglycemic precautions. A-fib: Eliquis 2.5 mg PO BID for AC. Hypertension: Amlodipine 7.5 mg PO QD. Dyslipidemia: ASA 81 mg PO QD. Lipitor 10 mg PO QHS. PT and OT consulted to work with this patient. Patient adamant about going home. CODE STATUS: NO CODE DVT Prophylaxis: Eliquis. GI Prophylaxis: Designated medical POA if patient is not able to make medical decisions for themselves: I have reviewed the following sap bw consultant notes: Cardiology, ID, Nephrology I have reviewed the results of the following tests: BCx I have ordered the following tests: I have discussed the care of this patient with the following independent historian: , Case management. I have independently interpreted the following test below: CXR I have discussed the management of this patient with the following physician: Objective - Vital Signs Vital signs: Vital Signs Temp 97.8 F 07/31/24 03:50 Pulse 60 07/31/24 03:50 Resp 16 07/31/24 03:50 BP 148/58 07/31/24 03:50 Pulse Ox 99 07/31/24 03:50 FiO2 Intake & Output 07/30/24 07/31/24 07/31/24 18:59 06:59 18:59 Intake Total 836 120 Output Total 500 Balance 336 120 Weight 55 kg Intake: Oral 836 120 Output: Urine 500 Other: Voiding Method Indwelling Catheter Indwelling Catheter # Voids 0 # Bowel Movements 1 - Labs CBC & Chem 7: 07/30/24 04:09 07/30/24 04:09 Labs: Abnormal Lab Results - Last 24 Hours (Table) 10/02/1307/27/24 07/30/24 Range/Units 06:55 06:30 11:54 POC Glucose (mg/dL) 129 H (70-110) mg/dL Total Creatine Kinase 18 L 18 L (30-223) u/L CK-MM (CK-3) 95.5 L (96.7-100.0) % CK-BB (CK-1) 4.5 H (0.0) % 07/30/24 07/30/24 07/31/24 Range/Units 16:44 19:50 06:09 POC Glucose (mg/dL) 188 H 184 H 117 H (70-110) mg/dL Total Creatine Kinase (30-223) u/L CK-MM (CK-3) (96.7-100.0) % CK-BB (CK-1) (0.0) % Microbiology - Last 24 Hours (Table) 07/29/24 13:21 Blood Culture - Preliminary Blood 07/26/24 10:07 Blood Culture Gram Stain - Final Blood Blood Culture - Final Enterococcus faecium VRE Staphylococcus epidermidis
[2024-07-31] MEDS: ONDANSETRON ODT 8 MG TAB.RAPDIS PO PRN (15:48)
[2024-07-31 16:18] LABS: Glucose,Whole Blood 96 mg/dL (70-110)
[2024-07-31 20:16] LABS: Glucose,Whole Blood 143 mg/dL (70-110)
[2024-08-01 06:03] LABS: Glucose,Whole Blood 131 mg/dL (70-110)
[2024-08-01 09:09] LABS: Anisocytosis Slight; HCT 26.9 % (34.0-46.0); HGB 8.3 gm/dL (11.4-16.0); Hypochromasia Slight; MCH 32.1 pg (25.0-35.0); MCV 103.4 fL (80.0-100.0); Macrocytosis Moderate; Mean Platelet Volume 8.9; Platelet Count 381 k/uL (150-450); RDW 19.4 % (11.5-15.5); WBC 21.5 k/uL (3.8-10.6)
[2024-08-01 09:16] LABS: African American GFR (CKD) 17 (>60 ml/min/1.73 sqM); Anion Gap 11 mmol/L; Blood Urea Nitrogen 73 mg/dL (7-17); Calcium 8.8 mg/dL (8.4-10.2); Carbon Dioxide 21 mmol/L (22-30); Chloride 99 mmol/L (98-107); Glucose 209 mg/dL (74-99); Non-African American GFR(CKD) 14 (>60 ml/min/1.73 sqM); Potassium 4.7 mmol/L (3.5-5.1); Sodium 131 mmol/L (137-145)
--- NOTE | 2024-08-01 09:17 | P.PN ---
Subjective Progress Note Date: 07/31/24 Principal diagnosis: Reason for follow-up is VRE bacteremia Patient is a 83-year-old female with a past medical history significant for diabetes mellitus hypertension hyperlipidemia heart failure coronary disease patient presented to hospital with increasing shortness of breath did have a positive blood culture VRE prompted this consultation, Patient is status post BALTAZAR completed concerning for vegetation on the pacemaker lead On today's evaluation that is 07/31/2024, Patient is afebrile patient is currently on room air and denies having any shortness of breath, the patient denies any chest pain or cough, the patient denies any nausea vomiting did not have any abdominal pain and no diarrhea, no new symptoms. Patient did not have any lab draw today blood cultures from 07/29/2024 so far negative Objective - Vital Signs Vital signs: Vital Signs Temp 97.8 F 07/31/24 09:30 Pulse 60 07/31/24 09:30 Resp 16 07/31/24 09:30 BP 148/52 07/31/24 09:30 Pulse Ox 96 07/31/24 09:30 FiO2 Intake & Output 07/30/24 07/31/24 07/31/24 18:59 06:59 18:59 Intake Total 836 120 Output Total 500 Balance 336 120 Weight 55 kg Intake: Oral 836 120 Output: Urine 500 Other: Voiding Method Indwelling Catheter Indwelling Catheter Indwelling Catheter # Voids 0 # Bowel Movements 1 - Exam GENERAL DESCRIPTION: An elderly female up in bed in no distress RESPIRATORY SYSTEM: Unlabored breathing , decreased breath sounds at bases HEART: S1 S2 regular rate and rhythm , ABDOMEN: Soft , no tenderness EXTREMITIES: No edema feet - Labs CBC & Chem 7: 08/01/24 08:58 08/01/24 08:58 Labs: Abnormal Lab Results - Last 24 Hours (Table) 07/26/24 07/27/24 07/30/24 Range/Units 06:55 06:30 11:54 POC Glucose (mg/dL) 129 H (70-110) mg/dL Total Creatine Kinase 18 L 18 L (30-223) u/L CK-MM (CK-3) 95.5 L (96.7-100.0) % CK-BB (CK-1) 4.5 H (0.0) % 07/30/24 07/30/24 07/31/24 Range/Units 16:44 19:50 06:09 POC Glucose (mg/dL) 188 H 184 H 117 H (70-110) mg/dL Total Creatine Kinase (30-223) u/L CK-MM (CK-3) (96.7-100.0) % CK-BB (CK-1) (0.0) % Microbiology - Last 24 Hours (Table) 07/28/24 05:28 Blood Culture Gram Stain - Final Blood Blood Culture - Final Enterococcus faecium 07/29/24 13:21 Blood Culture - Preliminary Blood 07/26/24 10:07 Blood Culture Gram Stain - Final Blood Blood Culture - Final Enterococcus faecium VRE Staphylococcus epidermidis Assessment and Plan (1) Allergy to multiple antibiotics Current Visit: No Status: Acute Code(s): Z88.1 - ALLERGY STATUS TO OTHER ANTIBIOTIC AGENTS SNOMED Code(s): 596714334 (2) UTI (urinary tract infection) Current Visit: No Status: Acute Code(s): N39.0 - URINARY TRACT INFECTION, SITE NOT SPECIFIED SNOMED Code(s): 18722705 (3) VRE bacteremia Current Visit: No Status: Acute Code(s): R78.81 - BACTEREMIA; B95.2 - ENTEROCOCCUS THE CAUSE OF DISEASES CLASSIFIED ELSEWHERE; Z16.21 - RESISTANCE TO VANCOMYCIN SNOMED Code(s): 2225442637 Plan: 1patient with the VRE bacteremia in this patient presented to hospital with increasing shortness of breath patient did have a episode of VRE bacteremia on 06/17/2024 with a blood culture negative on 06/20/2024 and was thought to be related to colitis as she did have abnormal CT and urine grew [place] on that admission now presenting back to the hospital with increasing shortness of breath and tested positive again Enterococcus faecium that is not VRE, high clinical suspicion for possible endovascular source, patient did have a BALTAZAR concerning for vegetation on the pacemaker lead 2-blood cultures repeat on 07/25/2024 as well as 07/26/2024 positive blood culture repeated 07/29/2024 and so far negative 3-patient to continue with the daptomycin if the blood culture from 07/29/2024 remains to be negative by tomorrow patient be able to get a PICC line and consideration for outpatient IV antibiotics Dictation was produced using [employer] software. please excuse any grammatical, word or spelling errors. Time with Patient: Less than 30
--- NOTE | 2024-08-01 10:01 | P.PN ---
Subjective Patient is seen in follow-up for acute kidney injury on chronic kidney disease. Renal function stable. On oral diuretics. Nonoliguric. Denies chest pain or shortness of breath. Vital signs are stable. General: No acute distress. HEENT: Head exam is unremarkable. On 2 L nasal cannula. LUNGS: No audible rhonchi or wheezes. HEART: Rate and Rhythm are regular. ABDOMEN: Nontender. EXTREMITITES: Erythema noted. 1+ edema. No drainage. Objective - Vital Signs Vital signs: Vital Signs Temp 98.3 F 08/01/24 08:00 Pulse 56 L 08/01/24 08:00 Resp 16 08/01/24 08:00 BP 142/46 08/01/24 08:00 Pulse Ox 98 08/01/24 08:00 FiO2 Intake & Output 07/31/24 08/01/24 08/01/24 18:59 06:59 18:59 Intake Total 240 120 Output Total 500 Balance 240 -500 120 Intake: Oral 240 120 Output: Urine 500 Other: Voiding Method Indwelling Catheter Indwelling Catheter - Labs CBC & Chem 7: 08/01/24 08:58 08/01/24 08:58 Labs: Abnormal Lab Results - Last 24 Hours (Table) 07/31/24 07/31/24 08/01/24 Range/Units 11:21 20:13 06:02 WBC (3.8-10.6) k/uL RBC (3.80-5.40) m/uL Hgb (11.4-16.0) gm/dL Hct (34.0-46.0) % MCV (80.0-100.0) fL RDW (11.5-15.5) % Sodium (137-145) mmol/L Carbon Dioxide (22-30) mmol/L BUN (7-17) mg/dL Creatinine (0.52-1.04) mg/dL Glucose (74-99) mg/dL POC Glucose (mg/dL) 263 H 143 H 131 H (70-110) mg/dL 08/01/24 08/01/24 Range/Units 08:58 08:58 WBC 21.5 H (3.8-10.6) k/uL RBC 2.60 L (3.80-5.40) m/uL Hgb 8.3 L (11.4-16.0) gm/dL Hct 26.9 L (34.0-46.0) % MCV 103.4 H (80.0-100.0) fL RDW 19.4 H (11.5-15.5) % Sodium 131 L (137-145) mmol/L Carbon Dioxide 21 L (22-30) mmol/L BUN 73 H (7-17) mg/dL Creatinine 2.86 H (0.52-1.04) mg/dL Glucose 209 H (74-99) mg/dL POC Glucose (mg/dL) (70-110) mg/dL Microbiology - Last 24 Hours (Table) 07/29/24 13:21 Blood Culture - Preliminary Blood 07/30/24 11:47 Blood Culture - Preliminary Blood 07/28/24 05:28 Blood Culture Gram Stain - Final Blood Blood Culture - Final Enterococcus faecium Assessment and Plan Plan: Assessment: 1. Acute kidney injury secondary to ATN secondary to severe sepsis and cardiorenal syndrome. Creatinine peaked at 2.94 this admission and is stable at 2.86 today. 2. Chronic kidney disease stage IV with baseline creatinine 2.3-2.6. 3. Volume overload. Improved with diuresis. On oral Bumex. 4. MRSA bacteremia maintained on daptomycin. ID following. BALTAZAR concerning for vegetation on pacemaker lead. 5. Acute on chronic diastolic CHF with mild to moderate mitral stenosis, moderate to severe mitral regurgitation and moderate tricuspid regurgitation. 6. Chronic kidney disease mineral bone disease maintained on calcitriol. 7. Hypertension with chronic kidney disease. Controlled. 8. Anemia of chronic kidney disease. On Aranesp. Plan: Maintain oral Bumex. Continue to monitor renal function and urine output. Avoid nephrotoxins.
[2024-08-01 11:19] LABS: Glucose,Whole Blood 185 mg/dL (70-110)
--- NOTE | 2024-08-01 13:12 | P.PN ---
Subjective Progress Note Date: 08/01/24 83 year old F with PMH of CHF, COPD on 2L home O2, CKD stage IV chronic Ordoñez catheter presents to the ED for SOB and dysuria. In the ED she underwent extensive evaluation. BP 145/90, HR 60, T 98.4, RR 18, 94% on 2L. CBC, Coag panel, CMP significant for WBC 14.3, RBC 2.81, Hg 8.8, Hct 28.2, MCV 100.3, Na 130, K 6.2, Cl 96, BUN 49, Cr 2.39, glu 319, AST 51, alk phos 351, alb 3.2. Lactic acid 2.1. Mag 1.9. Troponin 0.015, 0.028. BNP 8640. Lipase 139. UA large LE. CXR cardiomegaly with LLL infiltrate. EKG ventricular pacemaker. CT AP basilar pleural effusions with compressive atelectasis and anasarca. Patient was admitted for further workup and management. Started on Laisx IV BID for diastolic CHF exacerbation and Cardiology consulted. Eventually transitioned to Bumex 1 mg PO BID. Started on Rocephin IV for treatment of UTI. BCx came back + for VRE. Rocephin switched to Daptomycin and ID consulted. Underwent BALTAZAR on 07/27 which showed 0.8 x 0.8 cm density in the right atrium attached to the right atrial pacemaker lead. Cardiology with no plans to remove pacemaker at this time. 08/01 Patient was seen and examined. Patient appears extremely debilitated. Adamant about going home. Maintained on Daptomycin 350 mg IV Q48H. 07/28 BCx positive for Enterococcus faecium. 07/29 BCx prelim negative at 48H and 07/30 BCx prelim negative at 24H. Discussed with TOÑITO Joel for PICC line, will need 6 weeks of antibiotics, repeat CBC tomorrow for increasing WBC count. CBC and BMP significant for WBC 21.5, RBC 2.6, Hg 8.3, Hct 26.9, MCV 103.4, Na 131, bicarb 21, BUN 73, Cr 2.86, glu 209. General: non toxic, no distress, appears at stated age Derm: warm, dry Head: atraumatic, normocephalic, symmetric Eyes: EOMI, no lid lag, anicteric sclera Mouth: no lip lesion, mucus membranes moist Cardiovascular: S1S2 reg, no murmur Lungs: Decreased BS bilateral, no rhonchi, no rales, no accessory muscle use Ext: no gross muscle atrophy, no edema, no contractures Neuro: no focal neuro deficits Psych: Alert, oriented, appropriate affect Based on my assessment of this patient, this patient meets a high complexity level of care. 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 Per Cardiology, no plans for removing pacemaker. Plans for PICC line 08/01. ID on board. Acute on chronic diastolic CHF exacerbation: Bumex 1 mg PO BID. Strict intake and outtake. Daily weights. Cardiology on board. Left pleural effusion: Chronic in nature. Previously underwent thoracentesis in April with Dr. Cagle. Currently at her baseline O2 with minimal complaints. Outpatient Pulmonary follow up. OPAL on CKD stage IV: Calcitriol 0.25 mg PO QSat. Nephrology on board. DM: ISS. Accuchecks ACHS. Hypoglycemic precautions. A-fib: Eliquis 2.5 mg PO BID for AC. Hypertension: Amlodipine 7.5 mg PO QD. Dyslipidemia: ASA 81 mg PO QD. Lipitor 10 mg PO QHS. PT and OT consulted to work with this patient. Patient adamant about going home. CODE STATUS: NO CODE DVT Prophylaxis: Eliquis. GI Prophylaxis: Designated medical POA if patient is not able to make medical decisions for themselves: I have reviewed the following production consultant notes: Nephrology I have reviewed the results of the following tests: CBC, BMP, BCx I have ordered the following tests: I have discussed the care of this patient with the following independent historian: Case management. I have independently interpreted the following test below: I have discussed the management of this patient with the following physician: Dr. Crowley Objective - Vital Signs Vital signs: Vital Signs Temp 97.4 F L 08/01/24 11:28 Pulse 60 08/01/24 11:28 Resp 16 08/01/24 11:28 BP 156/69 08/01/24 11:28 Pulse Ox 100 08/01/24 11:28 FiO2 Intake & Output 07/31/24 08/01/24 08/01/24 18:59 06:59 18:59 Intake Total 240 120 Output Total 500 Balance 240 -500 120 Intake: Oral 240 120 Output: Urine 500 Other: Voiding Method Indwelling Catheter Indwelling Catheter Indwelling Catheter - Labs CBC & Chem 7: 08/01/24 08:58 08/01/24 08:58 Labs: Abnormal Lab Results - Last 24 Hours (Table) 07/31/24 08/01/24 08/01/24 Range/Units 20:13 06:02 08:58 WBC 21.5 H (3.8-10.6) k/uL RBC 2.60 L (3.80-5.40) m/uL Hgb 8.3 L (11.4-16.0) gm/dL Hct 26.9 L (34.0-46.0) % MCV 103.4 H (80.0-100.0) fL RDW 19.4 H (11.5-15.5) % Sodium (137-145) mmol/L Carbon Dioxide (22-30) mmol/L BUN (7-17) mg/dL Creatinine (0.52-1.04) mg/dL Glucose (74-99) mg/dL POC Glucose (mg/dL) 143 H 131 H (70-110) mg/dL 08/01/24 08/01/24 Range/Units 08:58 11:17 WBC (3.8-10.6) k/uL RBC (3.80-5.40) m/uL Hgb (11.4-16.0) gm/dL Hct (34.0-46.0) % MCV (80.0-100.0) fL RDW (11.5-15.5) % Sodium 131 L (137-145) mmol/L Carbon Dioxide 21 L (22-30) mmol/L BUN 73 H (7-17) mg/dL Creatinine 2.86 H (0.52-1.04) mg/dL Glucose 209 H (74-99) mg/dL POC Glucose (mg/dL) 185 H (70-110) mg/dL Microbiology - Last 24 Hours (Table) 07/29/24 13:21 Blood Culture - Preliminary Blood 07/30/24 11:47 Blood Culture - Preliminary Blood 07/28/24 05:28 Blood Culture Gram Stain - Final Blood Blood Culture - Final Enterococcus faecium
--- NOTE | 2024-08-01 14:39 | P.PN ---
Subjective Progress Note Date: 08/01/24 Principal diagnosis: Reason for follow-up is VRE bacteremia Patient is a 83-year-old female with a past medical history significant for diabetes mellitus hypertension hyperlipidemia heart failure coronary disease patient presented to hospital with increasing shortness of breath did have a positive blood culture VRE prompted this consultation, Patient is status post BALTAZAR completed concerning for vegetation on the pacemaker lead On today's evaluation that is 08/01/2024, patient has been afebrile, patient is breathing comfortably and is currently on 2 L nasal cannula oxygen, patient denies having any significant cough no chest pain, patient denies nausea vomiting or diarrhea and no abdominal pain. Patient white count is 21.5, creatinine is 2.86 Objective - Vital Signs Vital signs: Vital Signs Temp 97.4 F L 08/01/24 11:28 Pulse 56 L 08/01/24 14:00 Resp 16 08/01/24 14:00 BP 156/69 08/01/24 11:28 Pulse Ox 100 08/01/24 11:28 FiO2 Intake & Output 07/31/24 08/01/24 08/01/24 18:59 06:59 18:59 Intake Total 240 356 Output Total 500 Balance 240 -500 356 Intake: Oral 240 356 Output: Urine 500 Other: Voiding Method Indwelling Catheter Indwelling Catheter Indwelling Catheter - Exam GENERAL DESCRIPTION: An elderly female up in bed in no distress RESPIRATORY SYSTEM: Unlabored breathing , decreased breath sounds at bases HEART: S1 S2 regular rate and rhythm , ABDOMEN: Soft , no tenderness EXTREMITIES: No edema feet - Labs CBC & Chem 7: 08/01/24 08:58 08/01/24 08:58 Labs: Abnormal Lab Results - Last 24 Hours (Table) 07/31/24 08/01/24 08/01/24 Range/Units 20:13 06:02 08:58 WBC 21.5 H (3.8-10.6) k/uL RBC 2.60 L (3.80-5.40) m/uL Hgb 8.3 L (11.4-16.0) gm/dL Hct 26.9 L (34.0-46.0) % MCV 103.4 H (80.0-100.0) fL RDW 19.4 H (11.5-15.5) % Sodium (137-145) mmol/L Carbon Dioxide (22-30) mmol/L BUN (7-17) mg/dL Creatinine (0.52-1.04) mg/dL Glucose (74-99) mg/dL POC Glucose (mg/dL) 143 H 131 H (70-110) mg/dL 08/01/24 08/01/24 Range/Units 08:58 11:17 WBC (3.8-10.6) k/uL RBC (3.80-5.40) m/uL Hgb (11.4-16.0) gm/dL Hct (34.0-46.0) % MCV (80.0-100.0) fL RDW (11.5-15.5) % Sodium 131 L (137-145) mmol/L Carbon Dioxide 21 L (22-30) mmol/L BUN 73 H (7-17) mg/dL Creatinine 2.86 H (0.52-1.04) mg/dL Glucose 209 H (74-99) mg/dL POC Glucose (mg/dL) 185 H (70-110) mg/dL Microbiology - Last 24 Hours (Table) 07/29/24 13:21 Blood Culture - Preliminary Blood 07/30/24 11:47 Blood Culture - Preliminary Blood Assessment and Plan (1) Allergy to multiple antibiotics Current Visit: No Status: Acute Code(s): Z88.1 - ALLERGY STATUS TO OTHER ANTIBIOTIC AGENTS SNOMED Code(s): 179026715 (2) UTI (urinary tract infection) Current Visit: No Status: Acute Code(s): N39.0 - URINARY TRACT INFECTION, SITE NOT SPECIFIED SNOMED Code(s): 04300330 (3) VRE bacteremia Current Visit: No Status: Acute Code(s): R78.81 - BACTEREMIA; B95.2 - ENTEROCOCCUS THE CAUSE OF DISEASES CLASSIFIED ELSEWHERE; Z16.21 - RESISTANCE TO VANCOMYCIN SNOMED Code(s): 2613308632 Plan: 1patient with the VRE bacteremia in this patient presented to hospital with increasing shortness of breath patient did have a episode of VRE bacteremia on 06/17/2024 with a blood culture negative on 06/20/2024 and was thought to be related to colitis as she did have abnormal CT and urine grew Ivory on that admission now presenting back to the hospital with increasing shortness of breath and tested positive again Enterococcus faecium that is not VRE, high clinical suspicion for possible endovascular source, patient did have a BALTAZAR concerning for vegetation on the pacemaker lead 2-blood cultures repeat on 07/25/2024 as well as 07/26/2024 positive blood culture repeated 07/29/2024 and so far negative 3-patient did have worsening on the white count questionably related to Aranesp, we will check inflammatory marker repeat CBC and a CRP with a.m. lab continue with the daptomycin she will be able to get a PICC line as a blood culture from 07/29/2022 1 has been negative so far Dictation was produced using [employer] software. please excuse any grammatical, word or spelling errors. Time with Patient: Less than 30
--- NOTE | 2024-08-01 16:02 | XR ---
EXAMINATION TYPE: XR chest 1V portable DATE OF EXAM: 08/01/2024 COMPARISON: 07/30/2024 HISTORY: Shortness of breath TECHNIQUE: Single frontal view of the chest is obtained. FINDINGS: There is been no change in the large degree of opacification involving the left mid and lower lung co nsistent with effusion and likely left lung atelectasis and /or consolidation. The right lung is clear. There is been a median sternotomy and CABG surgery. There is a 2-lead cardiac pacemaker. There is marked degeneration of the glenohumeral joints bilaterally. IMPRESSION: No change in the acute cardiopulmonary disease involving the left lung as described [facility], , 08/01/2024 4:00 PM
[2024-08-01 16:15] LABS: Glucose,Whole Blood 221 mg/dL (70-110)
[2024-08-01 20:01] LABS: Glucose,Whole Blood 386 mg/dL (70-110)
[2024-08-01] MEDS: ACETAMINOPHEN TAB 325 MG TAB PO STA (21:15)
[2024-08-02 01:03] LABS: Glucose,Whole Blood 40 mg/dL (70-110)
[2024-08-02 01:23] LABS: Glucose,Whole Blood 72 mg/dL (70-110)
[2024-08-02 03:03] LABS: Glucose,Whole Blood 97 mg/dL (70-110)
[2024-08-02 06:23] LABS: Glucose,Whole Blood 113 mg/dL (70-110)
[2024-08-02 07:36] LABS: Anisocytosis Slight; Basophils % (A) 0 %; Eosinophils # (A) 0.2 k/uL (0-0.7); Eosinophils % (A) 1 %; HCT 27.5 % (34.0-46.0); HGB 8.5 gm/dL (11.4-16.0); Hypochromasia Slight; Lymphocytes # (A) 1.3 k/uL (1.0-4.8); Lymphocytes % (A) 5 %; MCH 31.5 pg (25.0-35.0); MCV 101.4 fL (80.0-100.0); Macrocytosis Moderate; Mean Platelet Volume 9.7; Monocytes % (A) 4 %; Neutrophils # (A) 20.7 k/uL (1.3-7.7); Neutrophils % (A) 88 %; Platelet Count 439 k/uL (150-450); RBC 2.71 m/uL (3.80-5.40); RDW 18.6 % (11.5-15.5); WBC 23.5 k/uL (3.8-10.6)
[2024-08-02 10:03] LABS: ALT 19 U/L (4-34); AST 31 U/L (14-36); African American GFR (CKD) 15 (>60 ml/min/1.73 sqM); Albumin 3.1 g/dL (3.5-5.0); Alkaline Phosphatase 341 U/L (38-126); Anion Gap 7 mmol/L; Blood Urea Nitrogen 79 mg/dL (7-17); Carbon Dioxide 25 mmol/L (22-30); Chloride 99 mmol/L (98-107); Glucose 88 mg/dL (74-99); Non-African American GFR(CKD) 13 (>60 ml/min/1.73 sqM); Potassium 5.1 mmol/L (3.5-5.1); Sodium 131 mmol/L (137-145); Total Bilirubin 0.6 mg/dL (0.2-1.3); Total Protein 5.9 g/dL (6.3-8.2)
--- NOTE | 2024-08-02 10:04 | P.PN ---
Subjective Patient is seen in follow-up for acute kidney injury on chronic kidney disease. Renal function stable as of yesterday. On oral diuretics. Nonoliguric. Denies chest pain or shortness of breath. PICC line placement pending. Vital signs are stable. General: No acute distress. HEENT: Head exam is unremarkable. On 2 L nasal cannula. LUNGS: No audible rhonchi or wheezes. HEART: Rate and Rhythm are regular. ABDOMEN: Nontender. EXTREMITITES: Erythema noted. 1+ edema. No drainage. Objective - Vital Signs Vital signs: Vital Signs Temp 97.5 F L 08/02/24 03:20 Pulse 60 08/02/24 07:54 Resp 15 08/02/24 07:54 BP 128/49 08/02/24 07:54 Pulse Ox 99 08/02/24 07:54 FiO2 Intake & Output 08/01/24 08/02/24 08/02/24 18:59 06:59 18:59 Intake Total 716 140 Balance 716 140 Intake: Oral 716 140 Other: Voiding Method Indwelling Catheter Indwelling Catheter Indwelling Catheter - Labs CBC & Chem 7: 08/02/24 06:30 08/01/24 08:58 Labs: Abnormal Lab Results - Last 24 Hours (Table) 08/01/24 08/01/24 08/01/24 Range/Units 11:17 16:13 19:59 WBC (3.8-10.6) k/uL RBC (3.80-5.40) m/uL Hgb (11.4-16.0) gm/dL Hct (34.0-46.0) % MCV (80.0-100.0) fL RDW (11.5-15.5) % Neutrophils # (1.3-7.7) k/uL POC Glucose (mg/dL) 185 H 221 H 386 H (70-110) mg/dL 08/02/24 08/02/24 08/02/24 Range/Units 01:02 06:22 06:30 WBC 23.5 H (3.8-10.6) k/uL RBC 2.71 L (3.80-5.40) m/uL Hgb 8.5 L (11.4-16.0) gm/dL Hct 27.5 L (34.0-46.0) % MCV 101.4 H (80.0-100.0) fL RDW 18.6 H (11.5-15.5) % Neutrophils # 20.7 H (1.3-7.7) k/uL POC Glucose (mg/dL) 40 L* 113 H (70-110) mg/dL Microbiology - Last 24 Hours (Table) 07/29/24 13:21 Blood Culture - Preliminary Blood 07/30/24 11:47 Blood Culture - Preliminary Blood Assessment and Plan Plan: Assessment: 1. Acute kidney injury secondary to ATN secondary to severe sepsis and cardiorenal syndrome. Creatinine peaked at 2.94 this admission and stable at 2.86 yesterday. 2. Chronic kidney disease stage IV with baseline creatinine 2.3-2.6. 3. Volume overload. Improved with diuresis. On oral Bumex. 4. MRSA bacteremia maintained on daptomycin. ID following. BALTAZAR concerning for vegetation on pacemaker lead. 5. Acute on chronic diastolic CHF with mild to moderate mitral stenosis, moderate to severe mitral regurgitation and moderate tricuspid regurgitation. 6. Chronic kidney disease mineral bone disease maintained on calcitriol. 7. Hypertension with chronic kidney disease. Controlled. 8. Anemia of chronic kidney disease. On Aranesp. Plan: Maintain oral Bumex. Continue to monitor renal function and urine output. Avoid nephrotoxins. Okay to place PICC line in the dominant arm.
[2024-08-02 10:20] LABS: C Reactive Protein 14.7 mg/dL (<1.0)
[2024-08-02 11:03] LABS: Glucose,Whole Blood 239 mg/dL (70-110)
--- NOTE | 2024-08-02 13:55 | P.PN ---
Subjective Progress Note Date: 08/02/24 83 year old F with PMH of CHF, COPD on 2L home O2, CKD stage IV chronic Ordoñez catheter presents to the ED for SOB and dysuria. In the ED she underwent extensive evaluation. BP 145/90, HR 60, T 98.4, RR 18, 94% on 2L. CBC, Coag panel, CMP significant for WBC 14.3, RBC 2.81, Hg 8.8, Hct 28.2, MCV 100.3, Na 130, K 6.2, Cl 96, BUN 49, Cr 2.39, glu 319, AST 51, alk phos 351, alb 3.2. Lactic acid 2.1. Mag 1.9. Troponin 0.015, 0.028. BNP 8640. Lipase 139. UA large LE. CXR cardiomegaly with LLL infiltrate. EKG ventricular pacemaker. CT AP basilar pleural effusions with compressive atelectasis and anasarca. Patient was admitted for further workup and management. Started on Laisx IV BID for diastolic CHF exacerbation and Cardiology consulted. Eventually transitioned to Bumex 1 mg PO BID. Started on Rocephin IV for treatment of UTI. BCx came back + for VRE. Rocephin switched to Daptomycin and ID consulted. Underwent BALTAZAR on 07/27 which showed 0.8 x 0.8 cm density in the right atrium attached to the right atrial pacemaker lead. Cardiology with no plans to remove pacemaker at this time. 07/29 BCx and 1 0/ BCx prelim negative so far. PICC line attempted and failed by RN, will need to wait until Monday for re-insertion by MD. 08/02 Patient was seen and examined. Patient appears extremely debilitated. She reports worsening of her breathing. CXR done yesterday shows chronic L pleural effusion which appears to be getting worse. Chest US and Pulmonary consulted for possible thoracentesis. Maintained on Daptomycin 350 mg IV Q48H. / BCx positive for Enterococcus faecium. 10/ BCx prelim negative at 72H and / BCx prelim negative at 48H. Discussed with Dr. Crowley, will need 6 weeks of antibioti cs. CBC and CMP significant for WBC 23.5, RBC 2.71, Hg 8.5, Hct 27.5, MCV 101.4, Na 131, BUN 79, Cr 3.09, alk phos 341, alb 3.1. CRP 14.7. General: non toxic, no distress, appears at stated age Derm: warm, dry Head: atraumatic, normocephalic, symmetric Eyes: EOMI, no lid lag, anicteric sclera Mouth: no lip lesion, mucus membranes moist Cardiovascular: S1S2 reg, no murmur Lungs: Decreased BS bilateral L>R, no rhonchi, no rales, no accessory muscle use Ext: no gross muscle atrophy, no edema, no contractures Neuro: no focal neuro deficits Psych: Alert, oriented, appropriate affect Based on my assessment of this patient, this patient meets a high complexity level of care. 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 Per Cardiology, no plans for removing pacemaker. RN unable to insert PICC, will need to be re-attempted on Monday by Vascular. ID on board. Acute on chronic diastolic CHF exacerbation: Bumex 1 mg PO BID. Strict intake and outtake. Daily weights. Cardiology on board. Left pleural effusion: Chronic in nature. Previously underwent thoracentesis in April with Dr. Cagle. Due to her increased dyspnea, chest US ordered and Pulmonary consulted for possible thoracentesis. OPAL on CKD stage IV: Calcitriol 0.25 mg PO QSat. Nephrology on board. DM: ISS. Accuchecks ACHS. Hypoglycemic precautions. A-fib: Eliquis 2.5 mg PO BID for AC. Hypertension: Amlodipine 7.5 mg PO QD. Dyslipidemia: ASA 81 mg PO QD. Lipitor 10 mg PO QHS. PT and OT consulted to work with this patient. Patient adamant about going home. CODE STATUS: NO CODE DVT Prophylaxis: Eliquis. GI Prophylaxis: Designated medical POA if patient is not able to make medical decisions for themselves: I have reviewed the following credit consultant notes: Nephrology I have reviewed the results of the following tests: CBC, CMP, BCx, CRP I have ordered the following tests: Chest US I have discussed the care of this patient with the following independent historian: Case management. I have independently interpreted the following test below: I have discussed the management of this patient with the following physician: Dr. Crowley Objective - Vital Signs Vital signs: Vital Signs Temp 97.2 F L 08/02/24 11:17 Pulse 60 08/02/24 11:17 Resp 15 08/02/24 11:17 BP 139/57 08/02/24 11:17 Pulse Ox 98 08/02/24 11:17 FiO2 Intake & Output 08/01/24 08/02/24 08/02/24 18:59 06:59 18:59 Intake Total 716 420 Balance 716 420 Intake: Oral 716 420 Other: Voiding Method Indwelling Catheter Indwelling Catheter Indwelling Catheter # Bowel Movements 1 - Labs CBC & Chem 7: 08/02/24 06:30 08/02/24 06:30 Labs: Abnormal Lab Results - Last 24 Hours (Table) 08/01/24 08/01/24 08/02/24 Range/Units 16:13 19:59 01:02 WBC (3.8-10.6) k/uL RBC (3.80-5.40) m/uL Hgb (11.4-16.0) gm/dL Hct (34.0-46.0) % MCV (80.0-100.0) fL RDW (11.5-15.5) % Neutrophils # (1.3-7.7) k/uL Sodium (137-145) mmol/L BUN (7-17) mg/dL Creatinine (0.52-1.04) mg/dL POC Glucose (mg/dL) 221 H 386 H 40 L* (70-110) mg/dL Alkaline Phosphatase (38-126) U/L C-Reactive Protein (<1.0) mg/dL Total Protein (6.3-8.2) g/dL Albumin (3.5-5.0) g/dL 08/02/24 08/02/24 08/02/24 Range/Units 06:22 06:30 06:30 WBC 23.5 H (3.8-10.6) k/uL RBC 2.71 L (3.80-5.40) m/uL Hgb 8.5 L (11.4-16.0) gm/dL Hct 27.5 L (34.0-46.0) % MCV 101.4 H (80.0-100.0) fL RDW 18.6 H (11.5-15.5) % Neutrophils # 20.7 H (1.3-7.7) k/uL Sodium 131 L (137-145) mmol/L BUN 79 H (7-17) mg/dL Creatinine 3.09 H (0.52-1.04) mg/dL POC Glucose (mg/dL) 113 H (70-110) mg/dL Alkaline Phosphatase 341 H (38-126) U/L C-Reactive Protein 14.7 H (<1.0) mg/dL Total Protein 5.9 L (6.3-8.2) g/dL Albumin 3.1 L (3.5-5.0) g/dL 08/02/24 Range/Units 11:02 WBC (3.8-10.6) k/uL RBC (3.80-5.40) m/uL Hgb (11.4-16.0) gm/dL Hct (34.0-46.0) % MCV (80.0-100.0) fL RDW (11.5-15.5) % Neutrophils # (1.3-7.7) k/uL Sodium (137-145) mmol/L BUN (7-17) mg/dL Creatinine (0.52-1.04) mg/dL POC Glucose (mg/dL) 239 H (70-110) mg/dL Alkaline Phosphatase (38-126) U/L C-Reactive Protein (<1.0) mg/dL Total Protein (6.3-8.2) g/dL Albumin (3.5-5.0) g/dL Microbiology - Last 24 Hours (Table) 07/29/24 13:21 Blood Culture - Preliminary Blood 07/30/24 11:47 Blood Culture - Preliminary Blood
--- NOTE | 2024-08-02 14:59 | P.PN ---
Subjective Progress Note Date: 08/02/24 Principal diagnosis: Reason for follow-up is VRE bacteremia Patient is a 83-year-old female with a past medical history significant for diabetes mellitus hypertension hyperlipidemia heart failure coronary disease patient presented to hospital with increasing shortness of breath did have a positive blood culture VRE prompted this consultation, Patient is status post BALTAZAR completed concerning for vegetation on the pacemaker lead On today's evaluation that is 08/02/2024, Patient is afebrile this morning patient denies having any chest pain shortness of breath or cough, the patient is currently on 2 L nasal cannula oxygen patient denies any abdominal pain no diarrhea no nausea no vomiting, patient complaining of not feeling well today. Patient white count is up to 23.5 creatinine 3.09 CRP is 14.7 blood culture repeat remains to be negative Objective - Vital Signs Vital signs: Vital Signs Temp 97.5 F L 08/02/24 03:20 Pulse 60 08/02/24 07:54 Resp 15 08/02/24 07:54 BP 128/49 08/02/24 07:54 Pulse Ox 99 08/02/24 07:54 FiO2 Intake & Output 08/01/24 08/02/24 08/02/24 18:59 06:59 18:59 Intake Total 716 140 Balance 716 140 Intake: Oral 716 140 Other: Voiding Method Indwelling Catheter Indwelling Catheter Indwelling Catheter - Exam GENERAL DESCRIPTION: An elderly female up in bed in no distress RESPIRATORY SYSTEM: Unlabored breathing , decreased breath sounds at bases HEART: S1 S2 regular rate and rhythm , ABDOMEN: Soft , no tenderness EXTREMITIES: No edema feet - Labs CBC & Chem 7: 08/02/24 06:30 08/02/24 06:30 Labs: Abnormal Lab Results - Last 24 Hours (Table) 08/01/24 08/01/24 08/01/24 Range/Units 08:58 08:58 11:17 WBC 21.5 H (3.8-10.6) k/uL RBC 2.60 L (3.80-5.40) m/uL Hgb 8.3 L (11.4-16.0) gm/dL Hct 26.9 L (34.0-46.0) % MCV 103.4 H (80.0-100.0) fL RDW 19.4 H (11.5-15.5) % Neutrophils # (1.3-7.7) k/uL Sodium 131 L (137-145) mmol/L Carbon Dioxide 21 L (22-30) mmol/L BUN 73 H (7-17) mg/dL Creatinine 2.86 H (0.52-1.04) mg/dL Glucose 209 H (74-99) mg/dL POC Glucose (mg/dL) 185 H (70-110) mg/dL 08/01/24 08/01/24 08/02/24 Range/Units 16:13 19:59 01:02 WBC (3.8-10.6) k/uL RBC (3.80-5.40) m/uL Hgb (11.4-16.0) gm/dL Hct (34.0-46.0) % MCV (80.0-100.0) fL RDW (11.5-15.5) % Neutrophils # (1.3-7.7) k/uL Sodium (137-145) mmol/L Carbon Dioxide (22-30) mmol/L BUN (7-17) mg/dL Creatinine (0.52-1.04) mg/dL Glucose (74-99) mg/dL POC Glucose (mg/dL) 221 H 386 H 40 L* (70-110) mg/dL 08/02/24 08/02/24 Range/Units 06:22 06:30 WBC 23.5 H (3.8-10.6) k/uL RBC 2.71 L (3.80-5.40) m/uL Hgb 8.5 L (11.4-16.0) gm/dL Hct 27.5 L (34.0-46.0) % MCV 101.4 H (80.0-100.0) fL RDW 18.6 H (11.5-15.5) % Neutrophils # 20.7 H (1.3-7.7) k/uL Sodium (137-145) mmol/L Carbon Dioxide (22-30) mmol/L BUN (7-17) mg/dL Creatinine (0.52-1.04) mg/dL Glucose (74-99) mg/dL POC Glucose (mg/dL) 113 H (70-110) mg/dL Microbiology - Last 24 Hours (Table) 07/29/24 13:21 Blood Culture - Preliminary Blood 07/30/24 11:47 Blood Culture - Preliminary Blood Assessment and Plan (1) Allergy to multiple antibiotics Current Visit: No Status: Acute Code(s): Z88.1 - ALLERGY STATUS TO OTHER ANTIBIOTIC AGENTS SNOMED Code(s): 677104246 (2) UTI (urinary tract infection) Current Visit: No Status: Acute Code(s): N39.0 - URINARY TRACT INFECTION, SITE NOT SPECIFIED SNOMED Code(s): 44666932 (3) VRE bacteremia Current Visit: No Status: Acute Code(s): R78.81 - BACTEREMIA; B95.2 - ENTEROCOCCUS THE CAUSE OF DISEASES CLASSIFIED ELSEWHERE; Z16.21 - RESISTANCE TO VANCOMYCIN SNOMED Code(s): 7060341825 Plan: 1patient with the VRE bacteremia in this patient presented to hospital with increasing shortness of breath patient did have a episode of VRE bacteremia on 06/17/2024 with a blood culture negative on 06/20/2024 and was thought to be related to colitis as she did have abnormal CT and urine grew Ivory on that admission now presenting back to the hospital with increasing shortness of breath and tested positive again Enterococcus faecium that is not VRE, high clinical suspicion for possible endovascular source, patient did have a BALTAZAR concerning for vegetation on the pacemaker lead 2-blood cultures repeat on 07/25/2024 as well as 07/26/2024 positive blood culture repeated 07/29/2024 and so far negative 3-patient did have worsening on the white count questionably related to Aranesp, CRP is elevated given dose of Diflucan, repeat CBC with a.m. lab prescription has been provided to the upper caser Dictation was produced using [employer] dictation software. please excuse any grammatical, word or spelling errors. Time with Patient: Less than 30
[2024-08-02] MEDS: FLUCONAZOLE 100 MG TAB PO SCH (15:41)
[2024-08-02 16:12] LABS: Glucose,Whole Blood 145 mg/dL (70-110)
--- NOTE | 2024-08-02 18:30 | US ---
EXAMINATION TYPE: US chest DATE OF EXAM: 08/02/2024 COMPARISON: Radiograph 08/01/2024 CLINICAL INDICATION: Female, 83 years old with history of left pleural effusion; Left pleural effusio n TECHNIQUE: Grayscale imaging of the chest. Targeted ultrasound of the posterior lower left hemithora x FINDINGS: EXAM MEASUREMENTS: Left Pleural Effusion pocket size: 9.4 cm - loculated fluid Left skin surface to fluid distance: 3.0 cm Left side marked for possible thoracentesis outside the dept. Pulmonologists are able to review the images in the patient?s EMR. IMPRESSIONS: Complex septated moderate to large pleural effusion on the left. [facility], , 08/02/2024 6:28 PM
[2024-08-02 20:13] LABS: Glucose,Whole Blood 173 mg/dL (70-110)
[2024-08-03 02:42] LABS: Glucose,Whole Blood 107 mg/dL (70-110)
[2024-08-03 06:18] LABS: Glucose,Whole Blood 129 mg/dL (70-110)
[2024-08-03 06:51] LABS: Anisocytosis Slight; Basophils % (A) 0 %; Eosinophils # (A) 0.9 k/uL (0-0.7); Eosinophils % (A) 4 %; HGB 7.7 gm/dL (11.4-16.0); Hypochromasia Marked; Lymphocytes # (A) 1.4 k/uL (1.0-4.8); Lymphocytes % (A) 6 %; MCH 31.9 pg (25.0-35.0); MCHC 30.9 g/dL (31.0-37.0); MCV 103.4 fL (80.0-100.0); Macrocytosis Moderate; Mean Platelet Volume 8.7; Monocytes # (A) 0.8 k/uL (0-1.0); Monocytes % (A) 4 %; Neutrophils # (A) 18.2 k/uL (1.3-7.7); Neutrophils % (A) 85 %; Platelet Count 431 k/uL (150-450); RBC 2.42 m/uL (3.80-5.40); RDW 18.8 % (11.5-15.5); WBC 21.5 k/uL (3.8-10.6)
[2024-08-03 07:44] LABS: African American GFR (CKD) 15 (>60 ml/min/1.73 sqM); Anion Gap 12 mmol/L; Blood Urea Nitrogen 85 mg/dL (7-17); Carbon Dioxide 20 mmol/L (22-30); Chloride 97 mmol/L (98-107); Glucose 98 mg/dL (74-99); Magnesium 2.2 mg/dL (1.6-2.3); Non-African American GFR(CKD) 13 (>60 ml/min/1.73 sqM); Potassium 5.4 mmol/L (3.5-5.1); Sodium 129 mmol/L (137-145)
[2024-08-03] MEDS: FUROSEMIDE 10 MG/ML 4 ML VIAL IV STA (09:14)
[2024-08-03] MEDS: SODIUM ZIRCONIUM CYCLOSILICATE 10 GM PACKET PO SCH (10:24)
[2024-08-03 11:33] LABS: Glucose,Whole Blood 170 mg/dL (70-110)
--- NOTE | 2024-08-03 12:38 | P.PN ---
Subjective Progress Note Date: 08/03/24 Patient is seen in follow-up for acute kidney injury on chronic kidney disease. Renal function stable. On oral diuretics. Nonoliguric. Denies chest pain or shortness of breath. Vital signs are stable. General: No acute distress. HEENT: Head exam is unremarkable. On 2 L nasal cannula. LUNGS: No audible rhonchi or wheezes. HEART: Rate and Rhythm are regular. ABDOMEN: Nontender. EXTREMITITES: Erythema noted. 1+ edema. No drainage. Objective - Vital Signs Vital signs: Vital Signs Temp 97.9 F 08/03/24 08:07 Pulse 62 08/03/24 08:07 Resp 16 08/03/24 08:07 BP 129/68 08/03/24 08:07 Pulse Ox 99 08/03/24 08:07 FiO2 Intake & Output 08/02/24 08/03/24 08/03/24 18:59 06:59 18:59 Intake Total 957 677 Output Total 250 Balance 707 677 Intake: Oral 957 677 Output: Urine 250 Other: Voiding Method Indwelling Catheter Indwelling Catheter Indwelling Catheter # Bowel Movements 1 - Labs CBC & Chem 7: 08/03/24 05:57 08/03/24 05:57 Labs: Abnormal Lab Results - Last 24 Hours (Table) 08/02/24 08/02/24 08/02/24 Range/Units 06:30 11:02 16:11 WBC (3.8-10.6) k/uL RBC (3.80-5.40) m/uL Hgb (11.4-16.0) gm/dL Hct (34.0-46.0) % MCV (80.0-100.0) fL MCHC (31.0-37.0) g/dL RDW (11.5-15.5) % Neutrophils # (1.3-7.7) k/uL Eosinophils # (0-0.7) k/uL Sodium 131 L (137-145) mmol/L Potassium (3.5-5.1) mmol/L Chloride (98-107) mmol/L Carbon Dioxide (22-30) mmol/L BUN 79 H (7-17) mg/dL Creatinine 3.09 H (0.52-1.04) mg/dL POC Glucose (mg/dL) 239 H 145 H (70-110) mg/dL Alkaline Phosphatase 341 H (38-126) U/L C-Reactive Protein 14.7 H (<1.0) mg/dL Total Protein 5.9 L (6.3-8.2) g/dL Albumin 3.1 L (3.5-5.0) g/dL 08/02/24 08/03/24 08/03/24 Range/Units 20:12 05:57 05:57 WBC 21.5 H (3.8-10.6) k/uL RBC 2.42 L (3.80-5.40) m/uL Hgb 7.7 L (11.4-16.0) gm/dL Hct 25.0 L (34.0-46.0) % MCV 103.4 H (80.0-100.0) fL MCHC 30.9 L (31.0-37.0) g/dL RDW 18.8 H (11.5-15.5) % Neutrophils # 18.2 H (1.3-7.7) k/uL Eosinophils # 0.9 H (0-0.7) k/uL Sodium 129 L (137-145) mmol/L Potassium 5.4 H (3.5-5.1) mmol/L Chloride 97 L (98-107) mmol/L Carbon Dioxide 20 L (22-30) mmol/L BUN 85 H (7-17) mg/dL Creatinine 3.19 H (0.52-1.04) mg/dL POC Glucose (mg/dL) 173 H (70-110) mg/dL Alkaline Phosphatase (38-126) U/L C-Reactive Protein (<1.0) mg/dL Total Protein (6.3-8.2) g/dL Albumin (3.5-5.0) g/dL 08/03/24 Range/Units 06:17 WBC (3.8-10.6) k/uL RBC (3.80-5.40) m/uL Hgb (11.4-16.0) gm/dL Hct (34.0-46.0) % MCV (80.0-100.0) fL MCHC (31.0-37.0) g/dL RDW (11.5-15.5) % Neutrophils # (1.3-7.7) k/uL Eosinophils # (0-0.7) k/uL Sodium (137-145) mmol/L Potassium (3.5-5.1) mmol/L Chloride (98-107) mmol/L Carbon Dioxide (22-30) mmol/L BUN (7-17) mg/dL Creatinine (0.52-1.04) mg/dL POC Glucose (mg/dL) 129 H (70-110) mg/dL Alkaline Phosphatase (38-126) U/L C-Reactive Protein (<1.0) mg/dL Total Protein (6.3-8.2) g/dL Albumin (3.5-5.0) g/dL Microbiology - Last 24 Hours (Table) 07/30/24 11:47 Blood Culture - Preliminary Blood Assessment and Plan Assessment: 1. Acute kidney injury secondary to ATN secondary to severe sepsis and cardiore nal syndrome. Creatinine peaked at 2.94 this admission and worsening to 3.2 today. 2. Chronic kidney disease stage IV with baseline creatinine 2.3-2.6. 3. Volume overload. Improved with diuresis. On oral Bumex. 4. MRSA bacteremia maintained on daptomycin. ID following. BALTAZAR concerning for vegetation on pacemaker lead. 5. Acute on chronic diastolic CHF with mild to moderate mitral stenosis, moderate to severe mitral regurgitation and moderate tricuspid regurgitation. 6. Chronic kidney disease mineral bone disease maintained on calcitriol. 7. Hypertension with chronic kidney disease. Controlled. 8. Anemia of chronic kidney disease. On Aranesp. 9. Hyperkalemia related to OPAL Plan: D/C bumex, would hold off on any further diuretic for now as minimal fluild overload with worsening renal function. Continue to monitor renal function and urine output. Avoid nephrotoxins. Check CPK level as she is on Daptomycin Will start Lokelma 10g daily
--- NOTE | 2024-08-03 12:39 | P.PN ---
Subjective Progress Note Date: 08/03/24 83 year old F with PMH of CHF, COPD on 2L home O2, CKD stage IV chronic Ordoñez catheter presents to the ED for SOB and dysuria. In the ED she underwent extensive evaluation. BP 145/90, HR 60, T 98.4, RR 18, 94% on 2L. CBC, Coag panel, CMP significant for WBC 14.3, RBC 2.81, Hg 8.8, Hct 28.2, MCV 100.3, Na 130, K 6.2, Cl 96, BUN 49, Cr 2.39, glu 319, AST 51, alk phos 351, alb 3.2. Lactic acid 2.1. Mag 1.9. Troponin 0.015, 0.028. BNP 8640. Lipase 139. UA large LE. CXR cardiomegaly with LLL infiltrate. EKG ventricular pacemaker. CT AP basilar pleural effusions with compressive atelectasis and anasarca. Patient was admitted for further workup and management. Started on Laisx IV BID for diastolic CHF exacerbation and Cardiology consulted. Eventually transitioned to Bumex 1 mg PO BID. Started on Rocephin IV for treatment of UTI. BCx came back + for VRE. Rocephin switched to Daptomycin and ID consulted. Underwent BALTAZAR on 07/27 which showed 0.8 x 0.8 cm density in the right atrium attached to the right atrial pacemaker lead. Cardiology with no plans to remove pacemaker at this time. 07/29 BCx and 1 BCx prelim negative so far. PICC line attempted and failed by RN, will need to wait until Monday for re-insertion by MD. Worsening breathing, CXR shows large chronic left pleural effusion. Chest US ordered and Pulmonary consulted for possible thoracentesis. 08/03 Patient was seen and examined. Patient appears extremely debilitated. She reports worsening of her breathing. Maintained on Daptomycin 350 mg IV Q48H. Diflucan 100 mg PO QD added by ID 08/02. 07/28 BCx positive for Enterococcus fa ecium. 07/29 BCx and 07/30 BCx negative. CBC and BMP significant for WBC 21.5, RBC 2.42, Hg 7.7, Hct 25, MCV 103.4, Na 129, K 5.4, Cl 97, bicarb 20, BUN 85, Cr 3.19. Mag 2.2. Case discussed with Dr. Wu, he reviewed the chest US and believed it may be better to consult IR for US guided thoracentesis. General: non toxic, no distress, appears at stated age Derm: warm, dry Head: atraumatic, normocephalic, symmetric Eyes: EOMI, no lid lag, anicteric sclera Mouth: no lip lesion, mucus membranes moist Cardiovascular: S1S2 reg, no murmur Lungs: Decreased BS bilateral L>R, no rhonchi, no rales, no accessory muscle use Ext: no gross muscle atrophy, no edema, no contractures Neuro: no focal neuro deficits Psych: Alert, oriented, appropriate affect Based on my assessment of this patient, this patient meets a high complexity level of care. 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 Per Cardiology, no plans for re moving pacemaker. RN unable to insert PICC, will need to be re-attempted on Monday by Vascular. ID on board. Acute on chronic diastolic CHF exacerbation: Bumex 1 mg PO BID. One dose of Lasix 40 mg IV today. Strict intake and outtake. Daily weights. Cardiology on board. Left pleural effusion: Chronic in nature. Previously underwent thoracentesis in April with Dr. Cagle. IR consulted for thoracentesis. Hyperkalemia: Likely due to CKD. Lasix as above. Recheck K at 3PM. Hyponatremia: Likely hypervolemic. Lasix as above. OPAL on CKD stage IV: Calcitriol 0.25 mg PO QSat. Nephrology on board. DM: ISS. Accuchecks ACHS. Hypoglycemic precautions. A-fib: Eliquis 2.5 mg PO BID for AC. Hypertension: Amlodipine 7.5 mg PO QD. Dyslipidemia: ASA 81 mg PO QD. Lipitor 10 mg PO QHS. PT and OT consulted to work with this patient. Patient adamant about going home. CODE STATUS: NO CODE DVT Prophylaxis: Eliquis. GI Prophylaxis: Designated medical POA if patient is not able to make medical decisions for themselves: I have reviewed the following applications consultant notes: Nephrology, ID I have reviewed the results of the following tests: CBC, BMP, Chest US I have ordered the following tests: K at 3. Repeat CBC and BMP in AM. I have discussed the care of this patient with the following independent histori an: I have independently interpreted the following test below: I have discussed the management of this patient with the following physician: Dr. Wu Objective - Vital Signs Vital signs: Vital Signs Temp 97.9 F 08/03/24 08:07 Pulse 62 08/03/24 08:07 Resp 16 08/03/24 08:07 BP 129/68 08/03/24 08:07 Pulse Ox 99 08/03/24 08:07 FiO2 Intake & Output 08/02/24 08/03/24 08/03/24 18:59 06:59 18:59 Intake Total 957 440 Output Total 250 Balance 707 440 Intake: Oral 957 440 Output: Urine 250 Other: Voiding Method Indwelling Catheter Indwelling Catheter Indwelling Catheter # Bowel Movements 1 - Labs CBC & Chem 7: 08/03/24 05:57 08/03/24 05:57 Labs: Abnormal Lab Results - Last 24 Hours (Table) 08/02/24 08/02/24 08/02/24 Range/Units 06:30 11:02 16:11 WBC (3.8-10.6) k/uL RBC (3.80-5.40) m/uL Hgb (11.4-16.0) gm/dL Hct (34.0-46.0) % MCV (80.0-100.0) fL MCHC (31.0-37.0) g/dL RDW (11.5-15.5) % Neutrophils # (1.3-7.7) k/uL Eosinophils # (0-0.7) k/uL Sodium 131 L (137-145) mmol/L Potassium (3.5-5.1) mmol/L Chloride (98-107) mmol/L Carbon Dioxide (22-30) mmol/L BUN 79 H (7-17) mg/dL Creatinine 3.09 H (0.52-1.04) mg/dL POC Glucose (mg/dL) 239 H 145 H (70-110) mg/dL Alkaline Phosphatase 341 H (38-126) U/L C-Reactive Protein 14.7 H (<1.0) mg/dL Total Protein 5.9 L (6.3-8.2) g/dL Albumin 3.1 L (3.5-5.0) g/dL 08/02/24 08/03/24 08/03/24 Range/Units 20:12 05:57 05:57 WBC 21.5 H (3.8-10.6) k/uL RBC 2.42 L (3.80-5.40) m/uL Hgb 7.7 L (11.4-16.0) gm/dL Hct 25.0 L (34.0-46.0) % MCV 103.4 H (80.0-100.0) fL MCHC 30.9 L (31.0-37.0) g/dL RDW 18.8 H (11.5-15.5) % Neutrophils # 18.2 H (1.3-7.7) k/uL Eosinophils # 0.9 H (0-0.7) k/uL Sodium 129 L (137-145) mmol/L Potassium 5.4 H (3.5-5.1) mmol/L Chloride 97 L (98-107) mmol/L Carbon Dioxide 20 L (22-30) mmol/L BUN 85 H (7-17) mg/dL Creatinine 3.19 H (0.52-1.04) mg/dL POC Glucose (mg/dL) 173 H (70-110) mg/dL Alkaline Phosphatase (38-126) U/L C-Reactive Protein (<1.0) mg/dL Total Protein (6.3-8.2) g/dL Albumin (3.5-5.0) g/dL 08/03/24 Range/Units 06:17 WBC (3.8-10.6) k/uL RBC (3.80-5.40) m/uL Hgb (11.4-16.0) gm/dL Hct (34.0-46.0) % MCV (80.0-100.0) fL MCHC (31.0-37.0) g/dL RDW (11.5-15.5) % Neutrophils # (1.3-7.7) k/uL Eosinophils # (0-0.7) k/uL Sodium (137-145) mmol/L Potassium (3.5-5.1) mmol/L Chloride (98-107) mmol/L Carbon Dioxide (22-30) mmol/L BUN (7-17) mg/dL Creatinine (0.52-1.04) mg/dL POC Glucose (mg/dL) 129 H (70-110) mg/dL Alkaline Phosphatase (38-126) U/L C-Reactive Protein (<1.0) mg/dL Total Protein (6.3-8.2) g/dL Albumin (3.5-5.0) g/dL Microbiology - Last 24 Hours (Table) 07/30/24 11:47 Blood Culture - Preliminary Blood
--- NOTE | 2024-08-03 13:51 | P.PN ---
Subjective Progress Note Date: 08/03/24 Principal diagnosis: Reason for follow-up is VRE bacteremia Patient is a 83-year-old female with a past medical history significant for diabetes mellitus hypertension hyperlipidemia heart failure coronary disease patient presented to hospital with increasing shortness of breath did have a positive blood culture VRE prompted this consultation, Patient is status post BALTAZAR completed concerning for vegetation on the pacemaker lead On today's evaluation that is 08/03/2024,the patient denies any fever or any chills, patient is breathing comfortably on room air, the patient denies chest pain shortness of breath and no significant cough, patient denies abdominal pain, no nausea vomiting or diarrhea. No new symptoms. Patient white count is down to 21.5 creatinine 3.19 Objective - Vital Signs Vital signs: Vital Signs Temp 97.9 F 08/03/24 08:07 Pulse 62 08/03/24 12:00 Resp 17 08/03/24 12:00 BP 142/61 08/03/24 12:00 Pulse Ox 93 L 08/03/24 12:00 FiO2 Intake & Output 08/02/24 08/03/24 08/03/24 18:59 06:59 18:59 Intake Total 957 917 Output Total 250 Balance 707 917 Intake: Oral 957 917 Output: Urine 250 Other: Voiding Method Indwelling Catheter Indwelling Catheter Indwelling Catheter # Bowel Movements 1 - Exam GENERAL DESCRIPTION: An elderly female up in bed in no distress RESPIRATORY SYSTEM: Unlabored breathing , decreased breath sounds at bases HEART: S1 S2 regular rate and rhythm , ABDOMEN: Soft , no tenderness EXTREMITIES: No edema feet - Labs CBC & Chem 7: 08/03/24 05:57 08/03/24 05:57 Labs: Abnormal Lab Results - Last 24 Hours (Table) 08/02/24 08/02/24 08/03/24 Range/Units 16:11 20:12 05:57 WBC (3.8-10.6) k/uL RBC (3.80-5.40) m/uL Hgb (11.4-16.0) gm/dL Hct (34.0-46.0) % MCV (80.0-100.0) fL MCHC (31.0-37.0) g/dL RDW (11.5-15.5) % Neutrophils # (1.3-7.7) k/uL Eosinophils # (0-0.7) k/uL Sodium 129 L (137-145) mmol/L Potassium 5.4 H (3.5-5.1) mmol/L Chloride 97 L (98-107) mmol/L Carbon Dioxide 20 L (22-30) mmol/L BUN 85 H (7-17) mg/dL Creatinine 3.19 H (0.52-1.04) mg/dL POC Glucose (mg/dL) 145 H 173 H (70-110) mg/dL 08/03/24 08/03/24 08/03/24 Range/Units 05:57 06:17 11:32 WBC 21.5 H (3.8-10.6) k/uL RBC 2.42 L (3.80-5.40) m/uL Hgb 7.7 L (11.4-16.0) gm/dL Hct 25.0 L (34.0-46.0) % MCV 103.4 H (80.0-100.0) fL MCHC 30.9 L (31.0-37.0) g/dL RDW 18.8 H (11.5-15.5) % Neutrophils # 18.2 H (1.3-7.7) k/uL Eosinophils # 0.9 H (0-0.7) k/uL Sodium (137-145) mmol/L Potassium (3.5-5.1) mmol/L Chloride (98-107) mmol/L Carbon Dioxide (22-30) mmol/L BUN (7-17) mg/dL Creatinine (0.52-1.04) mg/dL POC Glucose (mg/dL) 129 H 170 H (70-110) mg/dL Microbiology - Last 24 Hours (Table) 07/30/24 11:47 Blood Culture - Preliminary Blood Assessment and Plan (1) Allergy to multiple antibiotics Current Visit: No Status: Acute Code(s): Z88.1 - ALLERGY STATUS TO OTHER ANTIBIOTIC AGENTS SNOMED Code(s): 655044726 (2) UTI (urinary tract infection) Current Visit: No Status: Acute Code(s): N39.0 - URINARY TRACT INFECTION, SITE NOT SPECIFIED SNOMED Code(s): 90643815 (3) VRE bacteremia Current Visit: No Status: Acute Code(s): R78.81 - BACTEREMIA; B95.2 - ENTEROCOCCUS THE CAUSE OF DISEASES CLASSIFIED ELSEWHERE; Z16.21 - RESISTANCE TO VANCOMYCIN SNOMED Code(s): 3132373022 Plan: 1patient with the VRE bacteremia in this patient presented to hospital with increasing shortness of breath patient did have a episode of VRE bacteremia on 06/17/2024 with a blood culture negative on 06/20/2024 and was thought to be re lated to colitis as she did have abnormal CT and urine grew [place] on that admission now presenting back to the hospital with increasing shortness of breath and tested positive again Enterococcus faecium that is not VRE, high clinical suspicion for possible endovascular source, patient did have a BALTAZAR concerning for vegetation on the pacemaker lead 2-blood cultures repeat on 07/25/2024 as well as 07/26/2024 positive blood culture repeated 07/29/2024 and so far negative, currently waiting for PICC line placement by vascular surgery 3-patient did have improvement in the white count with addition of Diflucan which will be continued continue with the daptomycin antibiotic clinical course closely Dictation was produced using [employer] dictation software. please excuse any grammatical, word or spelling errors. Time with Patient: Less than 30
[2024-08-03 16:50] LABS: Glucose,Whole Blood 214 mg/dL (70-110)
[2024-08-03 19:59] LABS: Glucose,Whole Blood 236 mg/dL (70-110)
[2024-08-04 06:37] LABS: Glucose,Whole Blood 109 mg/dL (70-110)
[2024-08-04 09:53] LABS: African American GFR (CKD) 13 (>60 ml/min/1.73 sqM); Anion Gap 12 mmol/L; Blood Urea Nitrogen 95 mg/dL (7-17); Calcium 8.8 mg/dL (8.4-10.2); Carbon Dioxide 23 mmol/L (22-30); Chloride 95 mmol/L (98-107); Glucose 104 mg/dL (74-99); Non-African American GFR(CKD) 11 (>60 ml/min/1.73 sqM); Potassium 5.1 mmol/L (3.5-5.1); Sodium 130 mmol/L (137-145)
[2024-08-04 10:02] LABS: Anisocytosis Slight; HCT 23.9 % (34.0-46.0); HGB 7.5 gm/dL (11.4-16.0); Hypochromasia Slight; MCH 31.8 pg (25.0-35.0); MCHC 31.5 g/dL (31.0-37.0); MCV 100.7 fL (80.0-100.0); Macrocytosis Moderate; Mean Platelet Volume 9.5; Platelet Count 277 k/uL (150-450); RBC 2.37 m/uL (3.80-5.40); RDW 18.4 % (11.5-15.5); WBC 17.8 k/uL (3.8-10.6)
--- NOTE | 2024-08-04 10:39 | P.PN ---
Subjective Progress Note Date: 08/04/24 83 year old F with PMH of CHF, COPD on 2L home O2, CKD stage IV chronic Ordoñez catheter presents to the ED for SOB and dysuria. In the ED she underwent extensive evaluation. BP 145/90, HR 60, T 98.4, RR 18, 94% on 2L. CBC, Coag panel, CMP significant for WBC 14.3, RBC 2.81, Hg 8.8, Hct 28.2, MCV 100.3, Na 130, K 6.2, Cl 96, BUN 49, Cr 2.39, glu 319, AST 51, alk phos 351, alb 3.2. Lactic acid 2.1. Mag 1.9. Troponin 0.015, 0.028. BNP 8640. Lipase 139. UA large LE. CXR cardiomegaly with LLL infiltrate. EKG ventricular pacemaker. CT AP basilar pleural effusions with compressive atelectasis and anasarca. Patient was admitted for further workup and management. Started on Laisx IV BID for diastolic CHF exacerbation and Cardiology consulted. Eventually transitioned to Bumex 1 mg PO BID. Started on Rocephin IV for treatment of UTI. BCx came back + for VRE. Rocephin switched to Daptomycin and ID consulted. Underwent BALTAZAR on 07/27 which showed 0.8 x 0.8 cm density in the right atrium attached to the right atrial pacemaker lead. Cardiology with no plans to remove pacemaker at this time. 07/29 BCx and 1 BCx prelim negative so far. PICC line attempted and failed by RN, will need to wait until Monday for re-insertion by MD. Worsening breathing, CXR shows large chronic left pleural effusion. Chest US ordered and Pulmonary consulted for possible thoracentesis. Case discussed with Dr. Wu, he reviewed the chest US and believed it may be better to consult IR for US guided thoracentesis. 08/04 Patient was seen and examined. Patient appears extremely debilitated. Breathing is stable on 2L NC. Maintained on Daptomycin 350 mg IV Q48H. Diflucan 100 mg PO QD added by ID 08/02. 07/28 BCx positive for Enterococcus faecium. 07/29 BCx and 07/30 BCx negative. Nephrology has discontinued Bumex for worsening renal function and added Lokelma. CBC and BMP significant for WBC 17.8, RBC 2.37, Hg 7.5, Hct 23.9, MCV 100.7, Na 130, Cl 95, BUN 95, Cr 3.57, glu 104. General: non toxic, no distress, appears at stated age Derm: warm, dry Head: atraumatic, normocephalic, symmetric Eyes: EOMI, no lid lag, anicteric sclera Mouth: no lip lesion, mucus membranes moist Cardiovascular: S1S2 reg, no murmur Lungs: Decreased BS bilateral L>R, no rhonchi, no rales, no accessory muscle use Ext: no gross muscle atrophy, no edema, no contractures Neuro: no focal neuro deficits Psych: Alert, oriented, appropriate affect Based on my assessment of this patient, this patient meets a high complexity level of care. 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 Per Cardiology, no plans for removing pacemaker. RN unable to insert PICC, will need to be re-attempted on Monday by Vascular. ID on board. Acute on chronic diastolic CHF exacerbation: Nephrology recommends discontinuing diuretics due to worsening renal function. Strict intake and outtake. Daily weights. Cardiology on board. Left pleural effusion: Chronic in nature. Previously underwent thoracentesis in April with Dr. Cagle. IR consulted for thoracentesis. Hyperkalemia: Likely due to CKD. Lokelma 10g PO QD x 4 doses ordered by Nephrology. Hyponatremia: Likely hypervolemic. Bumex as above. OPAL on CKD stage IV: Calcitriol 0.25 mg PO QSat. Nephrology on board. DM: ISS. Accuchecks ACHS. Hypoglycemic precautions. A-fib: Eliquis 2.5 mg PO BID for AC. Hypertension: Amlodipine 7.5 mg PO QD. Dyslipidemia: ASA 81 mg PO QD. Lipitor 10 mg PO QHS. PT and OT consulted to work with this patient. Patient adamant about going home. CODE STATUS: NO CODE DVT Prophylaxis: Eliquis. GI Prophylaxis: Designated medical POA if patient is not able to make medical decisions for themselves: I have reviewed the following instructional systems design consultant notes: Nephrology, ID I have reviewed the results of the following tests: CBC, BMP. I have ordered the following tests: CBC and BMP in the AM. I have discussed the care of this patient with the following independent historian: LETTY. I have independently interpreted the following test below: I have discussed the management of this patient with the following physician: Objective - Vital Signs Vital signs: Vital Signs Temp 97.6 F 08/04/24 03:16 Pulse 61 08/04/24 03:16 Resp 22 08/04/24 03:16 BP 126/70 08/04/24 03:16 Pulse Ox 99 08/04/24 03:16 FiO2 Intake & Output 08/03/24 08/04/24 08/04/24 18:59 06:59 18:59 Intake Total 917 Output Total 400 Balance 517 Intake: Oral 917 Output: Urine 400 Other: Voiding Method Indwelling Catheter Indwelling Catheter - Labs CBC & Chem 7: 08/04/24 09:08 08/04/24 09:08 Labs: Abnormal Lab Results - Last 24 Hours (Table) 08/03/24 08/03/24 08/03/24 Range/Units 11:32 15:40 16:44 Potassium 5.2 H (3.5-5.1) mmol/L POC Glucose (mg/dL) 170 H 214 H (70-110) mg/dL 08/03/24 Range/Units 19:56 Potassium (3.5-5.1) mmol/L POC Glucose (mg/dL) 236 H (70-110) mg/dL Microbiology - Last 24 Hours (Table) 07/29/24 13:21 Blood Culture - Final Blood
[2024-08-04 11:21] LABS: Glucose,Whole Blood 203 mg/dL (70-110)
--- NOTE | 2024-08-04 11:22 | P.PN ---
Subjective Progress Note Date: 08/04/24 Patient is seen in follow-up for acute kidney injury on chronic kidney disease. Renal function stable. On oral diuretics. Nonoliguric. Denies chest pain or shortness of breath. Vital signs are stable. General: No acute distress. HEENT: Head exam is unremarkable. On 2 L nasal cannula. LUNGS: No audible rhonchi or wheezes. HEART: Rate and Rhythm are regular. ABDOMEN: Nontender. EXTREMITITES: Erythema noted. 1+ edema. No drainage. Objective - Vital Signs Vital signs: Vital Signs Temp 98.3 F 08/04/24 09:20 Pulse 63 08/04/24 09:20 Resp 15 08/04/24 09:20 BP 132/56 08/04/24 09:20 Pulse Ox 98 08/04/24 09:20 FiO2 Intake & Output 08/03/24 08/04/24 08/04/24 18:59 06:59 18:59 Intake Total 917 200 Output Total 400 Balance 517 200 Intake: Oral 917 200 Output: Urine 400 Other: Voiding Method Indwelling Catheter Indwelling Catheter - Labs CBC & Chem 7: 08/04/24 09:08 08/04/24 09:08 Labs: Abnormal Lab Results - Last 24 Hours (Table) 08/03/24 08/03/24 08/03/24 Range/Units 11:32 15:40 16:44 Potassium 5.2 H (3.5-5.1) mmol/L POC Glucose (mg/dL) 170 H 214 H (70-110) mg/dL 08/03/24 Range/Units 19:56 Potassium (3.5-5.1) mmol/L POC Glucose (mg/dL) 236 H (70-110) mg/dL Microbiology - Last 24 Hours (Table) 07/29/24 13:21 Blood Culture - Final Blood Assessment and Plan Assessment: 1. Acute kidney injury secondary to ATN secondary to severe sepsis and car diorenal syndrome. Creatinine peaked at 2.94 this admission and worsening to 3.5 today. CPK not elevated. 2. Chronic kidney disease stage IV with baseline creatinine 2.3-2.6. 3. Volume overload. Improved with diuresis. 4. MRSA bacteremia maintained on daptomycin. ID following. BALTAZAR concerning for vegetation on pacemaker lead. 5. Acute on chronic diastolic CHF with mild to moderate mitral stenosis, moderate to severe mitral regurgitation and moderate tricuspid regurgitation. 6. Chronic kidney disease mineral bone disease maintained on calcitriol. 7. Hypertension with chronic kidney disease. Controlled. 8. Anemia of chronic kidney disease. On Aranesp. 9. Hyperkalemia related to OPAL Plan: Hold off on any further diuretic for now as minimal fluid overload with worsening renal function. Continue to monitor renal function and urine output. Avoid nephrotoxins. Lokelma 10g daily Renal function worsening with diuresis, trial gentle IVF today
--- NOTE | 2024-08-04 16:42 | P.PN ---
Subjective Progress Note Date: 08/04/24 Principal diagnosis: Reason for follow-up is VRE bacteremia Patient is a 83-year-old female with a past medical history significant for diabetes mellitus hypertension hyperlipidemia heart failure coronary disease patient presented to hospital with increasing shortness of breath did have a positive blood culture VRE prompted this consultation, Patient is status post BALTAZAR completed concerning for vegetation on the pacemaker lead On today's evaluation that is 08/04/2024,the patient remains to be afebrile, patient is on 2 L nasal cannula supplemental oxygen and denies any shortness of breath no chest pain or cough.Patient denies having any nausea or vomiting, no abdominal pain and no diarrhea has been reported. Patient white count is down to 17.8, creatinine 3.57 Objective - Vital Signs Vital signs: Vital Signs Temp 97.7 F 08/04/24 14:36 Pulse 60 08/04/24 14:36 Resp 20 08/04/24 14:36 BP 129/48 08/04/24 14:36 Pulse Ox 99 08/04/24 14:36 FiO2 Intake & Output 08/03/24 08/04/24 08/04/24 18:59 06:59 18:59 Intake Total 917 200 Output Total 400 Balance 517 200 Intake: Oral 917 200 Output: Urine 400 Other: Voiding Method Indwelling Catheter Indwelling Catheter Indwelling Catheter - Exam GENERAL DESCRIPTION: An elderly female up in bed in no distress RESPIRATORY SYSTEM: Unlabored breathing , decreased breath sounds at bases HEART: S1 S2 regular rate and rhythm , ABDOMEN: Soft , no tenderness EXTREMITIES: No edema feet - Labs CBC & Chem 7: 08/04/24 09:08 08/04/24 09:08 Labs: Abnormal Lab Results - Last 24 Hours (Table) 08/03/24 08/03/24 08/03/24 Range/Units 15:40 16:44 19:56 WBC (3.8-10.6) k/uL RBC (3.80-5.40) m/uL Hgb (11.4-16.0) gm/dL Hct (34.0-46.0) % MCV (80.0-100.0) fL RDW (11.5-15.5) % Sodium (137-145) mmol/L Potassium 5.2 H (3.5-5.1) mmol/L Chloride (98-107) mmol/L BUN (7-17) mg/dL Creatinine (0.52-1.04) mg/dL Glucose (74-99) mg/dL POC Glucose (mg/dL) 214 H 236 H (70-110) mg/dL 08/04/24 08/04/24 08/04/24 Range/Units 09:08 09:08 11:20 WBC 17.8 H (3.8-10.6) k/uL RBC 2.37 L (3.80-5.40) m/uL Hgb 7.5 L (11.4-16.0) gm/dL Hct 23.9 L (34.0-46.0) % MCV 100.7 H (80.0-100.0) fL RDW 18.4 H (11.5-15.5) % Sodium 130 L (137-145) mmol/L Potassium (3.5-5.1) mmol/L Chloride 95 L (98-107) mmol/L BUN 95 H (7-17) mg/dL Creatinine 3.57 H (0.52-1.04) mg/dL Glucose 104 H (74-99) mg/dL POC Glucose (mg/dL) 203 H (70-110) mg/dL Microbiology - Last 24 Hours (Table) 07/29/24 13:21 Blood Culture - Final Blood Assessment and Plan (1) Allergy to multiple antibiotics Current Visit: No Status: Acute Code(s): Z88.1 - ALLERGY STATUS TO OTHER ANTIBIOTIC AGENTS SNOMED Code(s): 124339438 (2) UTI (urinary tract infection) Current Visit: No Status: Acute Code(s): N39.0 - URINARY TRACT INFECTION, SITE NOT SPECIFIED SNOMED Code(s): 95287350 (3) VRE bacteremia Current Visit: No Status: Acute Code(s): R78.81 - BACTEREMIA; B95.2 - ENTEROCOCCUS THE CAUSE OF DISEASES CLASSIFIED ELSEWHERE; Z16.21 - RESISTANCE TO VANCOMYCIN SNOMED Code(s): 3837896749 Plan: 1patient with the VRE bacteremia in this patient presented to hospital with increasing shortness of breath patient did have a episode of VRE bacteremia on 06/17/2024 with a blood culture negative on 06/20/2024 and was thought to be related to colitis as she did have abnormal CT and urine grew Iv[place] on that admission now presenting back to the hospital with increasing shortness of breath and tested positive again Enterococcus faecium that is not VRE, high clinical suspicion for possible endovascular source, patient did have a BALTAZAR concerning for vegetation on the pacemaker lead 2-blood cultures repeat on 07/25/2024 as well as 07/26/2024 positive blood culture repeated 07/29/2024 and so far negative, currently waiting for PICC line placement by vascular surgery 3-patient did have improvement in the white count which is down to 17,000 to continue with the Diflucan and daptomycin hopefully PICC line can be placed tomorrow and patient able to go home to complete her antibiotic therapy Dictation was produced using [employer] dictation software. please excuse any grammatical, word or spelling errors. Time with Patient: Less than 30
[2024-08-04 17:09] LABS: Glucose,Whole Blood 123 mg/dL (70-110)
[2024-08-04 20:55] LABS: Glucose,Whole Blood 243 mg/dL (70-110)
[2024-08-04] MEDS: SODIUM CHLORIDE 0.9% 1,000 ML IV SCH (21:17)
[2024-08-05 06:25] LABS: Glucose,Whole Blood 127 mg/dL (70-110)
[2024-08-05] MEDS: LIDOCAINE 1% INJ 10MG/ML (20 ML MDV) SQ ONE (07:56)
--- NOTE | 2024-08-05 08:10 | P.PCN ---
Date of Procedure: 08/05/24 Preoperative Diagnosis: VRE bacteremia need for long-term IV antibiotics Postoperative Diagnosis: Same Procedure(s) Performed: Right upper extremity basilic vein PICC line placement under ultrasound and fluoroscopic guidance Anesthesia: local Surgeon: Ajith Boyce Estimated Blood Loss (ml): 2 Pathology: none sent Condition: stable Disposition: floor Description of Procedure: After written and informed consent was obtained the patient and all risks, benefits and competitions were described the patient was brought to the Regional Business [facility] and laid in a supine position with her right arm outstretched on an armboard. The area of the right arm was prepped and draped in usual sterile fashion. Timeout was performed in normal fashion. Utilizing ultrasound the basilic vein was visualized and shown to be compressible without any visible thrombus. Under ultrasound guidance the basilic vein was then cannulated with a micropuncture needle and wire was placed under direct visualization of fluoroscopy. Introducer sheath was then placed. The catheter was measured and cut to the ap propriate length which was 48 cm. The catheter was then guided through the breakaway sheath and the sheath was removed with good positioning was visualized under fluoroscopy. The catheter was pulled and flushed easily. It was then secured in place in normal fashion. Patient tolerated the procedure well was sent back to his room for recovery.
--- NOTE | 2024-08-05 08:20 | IR ---
EXAMINATION TYPE: IR cvc insert >=5 years DATE OF EXAM: 08/05/2024 8:13 AM COMPARISON: Pre Operative Images if available both CT/MRI or plain film CLINICAL INDICATION: Female, 83 years old with history of Abx, 4F Rt basilic 48cm PICC line, 1.8m/12. 1DAP.; TECHNIQUE: IR cvc insert >=5 years, multiple fluoroscopic images provided for procedure. Total fluoroscopy time: 1.8 seconds Total submitted images to PACS: 50 DAP: 12.1 mGym2 Gycm2 uGym2 cGycm2 or equivalent. FINDINGS: IMPRESSION: 1. Report was generated for administrative purposes only. 2. Please see the operative/procedural note for further details. [facility], , 08/05/2024 8:18 AM
[2024-08-05 09:00] LABS: Anisocytosis Slight; HCT 24.3 % (34.0-46.0); HGB 7.2 gm/dL (11.4-16.0); Hypochromasia Marked; MCHC 29.7 g/dL (31.0-37.0); MCV 104.4 fL (80.0-100.0); Macrocytosis Marked; Mean Platelet Volume 10.1; Platelet Count 470 k/uL (150-450); RBC 2.33 m/uL (3.80-5.40); RDW 18.2 % (11.5-15.5); WBC 16.2 k/uL (3.8-10.6)
[2024-08-05 09:06] LABS: African American GFR (CKD) 12 (>60 ml/min/1.73 sqM); Anion Gap 12 mmol/L; Blood Urea Nitrogen 99 mg/dL (7-17); Calcium 8.7 mg/dL (8.4-10.2); Carbon Dioxide 21 mmol/L (22-30); Chloride 96 mmol/L (98-107); Glucose 98 mg/dL (74-99); Non-African American GFR(CKD) 11 (>60 ml/min/1.73 sqM); Sodium 129 mmol/L (137-145)
[2024-08-05] MEDS: MORPHINE SULFATE 2 MG/ML SYRINGE IVP PRN (09:06)
[2024-08-05 09:09] LABS: Potassium 5.3 mmol/L (3.5-5.1)
[2024-08-05 09:36] LABS: INR 1.14 sec (0.93-1.11); Prothrombin Time 12.2 sec (9.9-11.9)
[2024-08-05] MEDS: HYDROmorphone 1 MG/ML 1 ML SYRINGE IVP PRN (10:39)
[2024-08-05 11:39] LABS: Glucose,Whole Blood 225 mg/dL (70-110)
--- NOTE | 2024-08-05 12:33 | P.PN ---
Subjective Progress Note Date: 08/05/24 83 year old F with PMH of CHF, COPD on 2L home O2, CKD stage IV chronic Ordoñez catheter presents to the ED for SOB and dysuria. In the ED she underwent extensive evaluation. BP 145/90, HR 60, T 98.4, RR 18, 94% on 2L. CBC, Coag panel, CMP significant for WBC 14.3, RBC 2.81, Hg 8.8, Hct 28.2, MCV 100.3, Na 130, K 6.2, Cl 96, BUN 49, Cr 2.39, glu 319, AST 51, alk phos 351, alb 3.2. Lactic acid 2.1. Mag 1.9. Troponin 0.015, 0.028. BNP 8640. Lipase 139. UA large LE. CXR cardiomegaly with LLL infiltrate. EKG ventricular pacemaker. CT AP basilar pleural effusions with compressive atelectasis and anasarca. Patient was admitted for further workup and management. Started on Laisx IV BID for diastolic CHF exacerbation and Cardiology consulted. Eventually transitioned to Bumex 1 mg PO BID. Started on Rocephin IV for treatment of UTI. BCx came back + for VRE. Rocephin switched to Daptomycin and ID consulted. Underwent BALTAZAR on 07/27 which showed 0.8 x 0.8 cm density in the right atrium attached to the right atrial pacemaker lead. Cardiology with no plans to remove pacemaker at this time. 07/29 BCx and 1 BCx prelim negative so far. PICC line attempted and failed by RN, successfully inserted by Dr. Boyce on 08/05. Worsening breathing, CXR shows large chronic left pleural effusion. Chest US ordered and Pulmonary consulted for possible thoracentesis. Case discussed with Dr. Wu, he reviewed the chest US and believed it may be better to consult IR for US guided thoracentesis. 08/05 Patient was seen and examined. PICC line inserted by Dr. Boyce. Patient appears extremely debilitated, now agreeable for [place]. She reports pain in her right joyner, burning in nature. Maintained on Daptomycin 350 mg IV Q48H. Diflucan 100 mg PO QD added by ID 08/02. 07/28 BCx positive for Enterococcus faecium. 07/29 BCx and 07/30 BCx negative. Nephrology has discontinued Bumex for worsening renal function, started gentle IV hydration and added Lokelma for the hyperkalemia. CBC and BMP significant for WBC 16.2, RBC 2.33, Hg 7.2, Hct 24.3, MCV 104.4, Na 129, K 5.3, Cl 96, bicarb 21, BUN 99, Cr 3.68. General: non toxic, no distress, appears at stated age Derm: warm, dry Head: atraumatic, normocephalic, symmetric Eyes: EOMI, no lid lag, anicteric sclera Mouth: no lip lesion, mucus membranes moist Cardiovascular: S1S2 reg, no murmur Lungs: Decreased BS bilateral L>R, no rhonchi, no rales, no accessory muscle use Ext: no gross muscle atrophy, no edema, no contractures Neuro: no focal neuro deficits Psych: Alert, oriented, appropriate affect Based on my assessment of this patient, this patient meets a high complexity level of care. 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 Per Cardiology, no plans for removing pacemaker. RN unable to insert PICC, will need to be re-attempted on Monday by Vascular. ID on board. Acute on chronic diastolic CHF exacerbation: Nephrology recommends discontinuing diuretics due to worsening renal function. Strict intake and outtake. Daily weights. Cardiology on board. Left pleural effusion: Chronic in nature. Previously underwent thoracentesis in April with Dr. Cagle. IR consulted for thoracentesis, Eliquis placed on hold. Hyperkalemia: Likely due to CKD. Lokelma 10g PO QD x 4 doses ordered by Nephrology. Hyponatremia: Likely hypervolemic. Marcocytic anemia: Component of ACOD from CKD. Obtain iron studies, B12, Folate. Transfuse if Hg < 7. OPAL on CKD stage IV: Calcitriol 0.25 mg PO QSat. Continue NS at 50 cc/hr. Nephrology on board. DM: ISS. Accuchecks ACHS. Hypoglycemic precautions. A-fib: Eliquis placed on hold 08/05. Hypertension: Amlodipine 7.5 mg PO QD. Dyslipidemia: ASA 81 mg PO QD. Lipitor 10 mg PO QHS. Plans for IR thoracentesis. Patient now agreeable for SNF, case management on board. CODE STATUS: NO CODE DVT Prophylaxis: Eliquis. GI Prophylaxis: Designated medical POA if patient is not able to make medical decisions for themselves: I have reviewed the following vendor management consultant notes: Vascular I have reviewed the results of the following tests: CBC, BMP. I have ordered the following tests: CBC and BMP in the AM. I have discussed the care of this patient with the following independent historian: LETTY. I have independently interpreted the following test below: I have discussed the management of this patient with the following physician: Objective - Vital Signs Vital signs: Vital Signs Temp 97.7 F 08/05/24 07:06 Pulse 60 08/05/24 07:06 Resp 17 08/05/24 07:06 BP 138/56 08/05/24 07:06 Pulse Ox 100 08/05/24 07:06 FiO2 Intake & Output 08/04/24 08/05/24 08/05/24 18:59 06:59 18:59 Intake Total 200 Balance 200 Intake: Oral 200 Other: Voiding Method Indwelling Catheter Indwelling Catheter Indwelling Catheter - Labs CBC & Chem 7: 08/05/24 03:00 08/05/24 03:00 Labs: Abnormal Lab Results - Last 24 Hours (Table) 08/04/24 08/04/24 08/05/24 Range/Units 17:08 20:51 03:00 WBC (3.8-10.6) k/uL RBC (3.80-5.40) m/uL Hgb (11.4-16.0) gm/dL Hct (34.0-46.0) % MCV (80.0-100.0) fL MCHC (31.0-37.0) g/dL RDW (11.5-15.5) % Plt Count (150-450) k/uL Macrocytosis PT 12.2 H (9.9-11.9) sec INR 1.14 H (0.93-1.11) sec Sodium (137-145) mmol/L Potassium (3.5-5.1) mmol/L Chloride (98-107) mmol/L Carbon Dioxide (22-30) mmol/L BUN (7-17) mg/dL Creatinine (0.52-1.04) mg/dL POC Glucose (mg/dL) 123 H 243 H (70-110) mg/dL 10/08/05/24 08/05/24 Range/Units 03:00 03:00 06:23 WBC 16.2 H (3.8-10.6) k/uL RBC 2.33 L (3.80-5.40) m/uL Hgb 7.2 L (11.4-16.0) gm/dL Hct 24.3 L (34.0-46.0) % MCV 104.4 H (80.0-100.0) fL MCHC 29.7 L (31.0-37.0) g/dL RDW 18.2 H (11.5-15.5) % Plt Count 470 H (150-450) k/uL Macrocytosis Marked A PT (9.9-11.9) sec INR (0.93-1.11) sec Sodium 129 L (137-145) mmol/L Potassium 5.3 H (3.5-5.1) mmol/L Chloride 96 L (98-107) mmol/L Carbon Dioxide 21 L (22-30) mmol/L BUN 99 H (7-17) mg/dL Creatinine 3.68 H (0.52-1.04) mg/dL POC Glucose (mg/dL) 127 H (70-110) mg/dL 08/05/24 Range/Units 11:31 WBC (3.8-10.6) k/uL RBC (3.80-5.40) m/uL Hgb (11.4-16.0) gm/dL Hct (34.0-46.0) % MCV (80.0-100.0) fL MCHC (31.0-37.0) g/dL RDW (11.5-15.5) % Plt Count (150-450) k/uL Macrocytosis PT (9.9-11.9) sec INR (0.93-1.11) sec Sodium (137-145) mmol/L Potassium (3.5-5.1) mmol/L Chloride (98-107) mmol/L Carbon Dioxide (22-30) mmol/L BUN (7-17) mg/dL Creatinine (0.52-1.04) mg/dL POC Glucose (mg/dL) 225 H (70-110) mg/dL Microbiology - Last 24 Hours (Table) 07/30/24 11:47 Blood Culture - Final Blood
--- NOTE | 2024-08-05 14:45 | P.PN ---
Subjective Patient is seen for follow-up for chronic kidney disease. Maintained on IV fluids at 50 mL an hour, started yesterday. Status post PICC line placement for IV antibiotics as outpatient. Serum creatinine at 3.6 today. Patient had an emesis this morning. Objective - Vital Signs Vital signs: Vital Signs Temp 97.5 F L 08/05/24 12:56 Pulse 60 08/05/24 12:56 Resp 17 08/05/24 12:56 BP 137/55 08/05/24 12:56 Pulse Ox 99 08/05/24 12:56 FiO2 Intake & Output 08/04/24 08/05/24 08/05/24 18:59 06:59 18:59 Intake Total 200 Balance 200 Intake: Oral 200 Other: Voiding Method Indwelling Catheter Indwelling Catheter Indwelling Catheter - Exam Patient is awake, comfortable, no acute distress. Examination of the heart S1 and S2 Examination of the lungs decreased breath sounds at the bases Abdomen is soft nontender Examination of lower extremities shows edema 2+ bilaterally with chronic skin changes - Labs CBC & Chem 7: 08/05/24 03:00 08/05/24 03:00 Labs: Abnormal Lab Results - Last 24 Hours (Table) 08/04/24 08/04/24 08/05/24 Range/Units 17:08 20:51 03:00 WBC (3.8-10.6) k/uL RBC (3.80-5.40) m/uL Hgb (11.4-16.0) gm/dL Hct (34.0-46.0) % MCV (80.0-100.0) fL MCHC (31.0-37.0) g/dL RDW (11.5-15.5) % Plt Count (150-450) k/uL Macrocytosis PT 12.2 H (9.9-11.9) sec INR 1.14 H (0.93-1.11) sec Sodium (137-145) mmol/L Potassium (3.5-5.1) mmol/L Chloride (98-107) mmol/L Carbon Dioxide (22-30) mmol/L BUN (7-17) mg/dL Creatinine (0.52-1.04) mg/dL POC Glucose (mg/dL) 123 H 243 H (70-110) mg/dL 08/05/24 08/05/24 08/05/24 Range/Units 03:00 03:00 06:23 WBC 16.2 H (3.8-10.6) k/uL RBC 2.33 L (3.80-5.40) m/uL Hgb 7.2 L (11.4-16.0) gm/dL Hct 24.3 L (34.0-46.0) % MCV 104.4 H (80.0-100.0) fL MCHC 29.7 L (31.0-37.0) g/dL RDW 18.2 H (11.5-15.5) % Plt Count 470 H (150-450) k/uL Macrocytosis Marked A PT (9.9-11.9) sec INR (0.93-1.11) sec Sodium 129 L (137-145) mmol/L Potassium 5.3 H (3.5-5.1) mmol/L Chloride 96 L (98-107) mmol/L Carbon Dioxide 21 L (22-30) mmol/L BUN 99 H (7-17) mg/dL Creatinine 3.68 H (0.52-1.04) mg/dL POC Glucose (mg/dL) 127 H (70-110) mg/dL 08/05/24 Range/Units 11:31 WBC (3.8-10.6) k/uL RBC (3.80-5.40) m/uL Hgb (11.4-16.0) gm/dL Hct (34.0-46.0) % MCV (80.0-100.0) fL MCHC (31.0-37.0) g/dL RDW (11.5-15.5) % Plt Count (150-450) k/uL Macrocytosis PT (9.9-11.9) sec INR (0.93-1.11) sec Sodium (137-145) mmol/L Potassium (3.5-5.1) mmol/L Chloride (98-107) mmol/L Carbon Dioxide (22-30) mmol/L BUN (7-17) mg/dL Creatinine (0.52-1.04) mg/dL POC Glucose (mg/dL) 225 H (70-110) mg/dL Microbiology - Last 24 Hours (Table) 07/30/24 11:47 Blood Culture - Final Blood Assessment and Plan Assessment: 1. Chronic kidney disease NKF stage IV with baseline creatinine 2.3 to 2.6 mg/dL. 2. Volume overload, improved from admission 3. Enterococcus bacteremia maintained on daptomycin. Urine culture is negative. Patient is being followed by ID. Concern for meditation on pacemaker lead. Patient will be maintained on IV antibiotics post discharge.. 4. CKD mineral bone disorder maintained on calcitriol 5. Hyperkalemia associated with CK D and acute kidney injury. Maintained on lokelma. 6. Acute kidney injury secondary to underlying sepsisand cardiorenal syndrome 7. Anemia of chronic disease maintained on Aranesp. No active bleeding noted Plan: Continue with IVf continue low potassium diet overall prognosis is guarded Continue antibiotics. repeat labs in a.m. Continue local
--- NOTE | 2024-08-05 16:23 | XR ---
Right knee limited HISTORY: Pain COMPARISON: None. TECHNIQUE: 2 views the right knee were obtained FINDINGS: There is diffuse osteopenia. There is bone on bone in the patellofemoral compartment and lateral compartment consistent with sever e osteoarthritis. There is moderate narrowing of the medial compartment and there is chondrocalcinosi s in the medial compartment consistent with CPPD disease. There is marked arteriovascular calcifications. IMPRESSION: 1. Diffuse osteopenia. 2. 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 3. 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 Marked diffuse arteriovascular calcifications. [facility], , 08/05/2024 4:20 PM
--- NOTE | 2024-08-05 16:26 | XR ---
Right tibia and fibula. HISTORY: Pain COMPARISON: None. TECHNIQUE: 3 views of the right tibia and fibula were obtained. FINDINGS: There is diffuse osteopenia. There is no fracture or focal intraosseous abnormality. There is no segundo ical destruction or periosteal reaction. There is marked arteriovascular calcification. Pressure in: 1. Marked arteriovascular calcification. 2 no fracture or focal intraosseous abnormality. [facility], , 08/05/2024 4:23 PM
[2024-08-05 16:31] LABS: Glucose,Whole Blood 75 mg/dL (70-110)
--- NOTE | 2024-08-05 18:36 | P.CNPUL ---
History of Present Illness Consult date: 08/05/24 Reason for consult: pleural effusion History of present illness: This is a 83-year-old female patient who was having trouble breathing and the pa tiemiryam also has a large left-sided pleural effusion. 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 The patient has undergone previous thoracentesis of the lung back in 05/20/2024 and at that time, a total of 500 cc of pleural fluid was aspirated from the left lung and the fluid analysis was consistent with a transudate with a low LDH of [id number]. Fluid cytology was negative for malignancy. Fluid white count was 924. Post thoracentesis chest x-ray showed some residual fluid in the left lung base with incomplete reexpansion of the left lung. The patient is known to have coronary artery disease, previous bypass surgery, previous aortic valve replacement, diabetes mellitus, hypertension hyperlipidemia and chronic stage IV kidney disease. 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 During this current admission, the patient came into the emergency room because of increased shortness of breath, anasarca and fluid overload and the patient was started on IV Lasix. . BALTAZAR was done on 07/27/2024 showed a bioprosthetic aortic valve with mild aortic stenosis, mitral valve severely calcified and there is moderate degree of mitral stenosis and moderate to severe mitral regurgitation, and a 8 mm echodensity in the right atrium attached to the right atrial pacemaker lead which obviously raises the concern for vegetation. The blood cultures from 07/25/2024, and 07/28/2024 was consistent with Enterococcus faecium. Another blood culture from 07/26/2024 showed a combination of Enterococcus and Staph epidermidis. The patient is currently on daptomycin. The patient currently has a PICC line in her right upper extremity for long-term antibiotic coverage., Suspected endovascular source of infection and possibility of an infection of the pacemaker lead. Most recent white cell count is at 16.2 with a hemoglobin 7.2 and a platelet count of 470. BUN is 99 with a creatinine of 3.6 and a sodium is at 129 and a potassium level is at 5.3. Review of Systems Constitutional: Reports fatigue, Reports weight gain Eyes: denies as per HPI, denies blurred vision, denies bulging eye, denies decreased vision, denies diplopia, denies discharge, denies dry eye, denies irritation, denies itching, denies pain, denies photophobia, denies loss of peripheral vision, denies loss of vision, denies tunnel vision/blind spots Ears: deny: decreased hearing, ear discharge, earache, tinnitus Ears, nose, mouth and throat: Reports as per HPI Breasts: absent: as per HPI, change in shape, gynecomastia, masses, nipple disc harge, pain, skin changes, swelling Cardiovascular: Reports decreased exercise tolerance, Reports dyspnea on exertion, Reports edema Respiratory: Reports dyspnea Gastrointestinal: Reports as per HPI Genitourinary: Reports as per HPI Menstruation: Reports as per HPI Musculoskeletal: Reports as per HPI Musculoskeletal: bilateral: ankle swelling, absent: ankle pain, ankle stiffness Integumentary: Reports as per HPI Neurological: Reports as per HPI Psychiatric: Reports as per HPI Endocrine: Reports as per HPI Hematologic/Lymphatic: Reports as per HPI Allergic/Immunologic: Reports as per HPI Past Medical History Past Medical History: Coronary Artery Disease (CAD), Heart Failure, Diabetes Mellitus, Hyperlipidemia, Hypertension, Renal Disease Additional Past Medical History / Comment(s): pacemaker for complete heart block, 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 Date of last positivie culture/infection: 07/26/24 MDRO Source:: blood Past Surgical History: Appendectomy, Cholecystectomy, Coronary Bypass/CABG, Hysterectomy, Pacemaker, Tonsillectomy Additional Past Surgical History / Comment(s): CABG x3 11 years Past Anesthesia/Blood Transfusion Reactions: No Reported Reaction Type of Cardiac Device: Permanent Pacemaker Device Placement Date:: 02/20/23 Past Psychological History: No Psychological Hx Reported Smoking Status: Never smoker Past Alcohol Use History: None Reported Past Drug Use History: None Reported - Past Family History Father History Unknown: Yes Family Medical History: COPD Medications and Allergies Home Medications Medication Instructions Recorded Confirmed Type Ubidecarenone [Co Q-10] 30 mg PO DAILY 09/06/23 07/24/24 History calcitrioL 0.25 mcg PO SA 11/17/23 07/24/24 History Apixaban [Eliquis] 2.5 mg PO BID 02/08/24 07/24/24 History allopurinoL [Zyloprim] 100 mg PO DAILY 05/06/24 07/24/24 History Aspirin 81 mg PO DAILY 30 Days #30 tab 05/20/24 07/24/24 Rx Cholecalciferol (Vitamin D3) 50 mcg PO DAILY 06/17/24 07/24/24 History [Vitamin D3 (50 Mcg = 2000 Iu)] Ondansetron Odt [Zofran ODT] 8 mg PO Q8HR PRN 06/17/24 07/24/24 History Furosemide [Lasix] 40 mg PO DAILY #60 tab 07/09/24 07/24/24 Rx Spironolactone [Aldactone] 12.5 mg PO DAILY #60 tab 07/09/24 07/24/24 Rx amLODIPine [Norvasc] 7.5 mg PO DAILY #90 tab 07/09/24 07/24/24 Rx DAPTOmycin [Cubicin] 600 mg IV Q48H #20 each 08/02/24 Rx Allergies Allergy/AdvReac Type Severity Reaction Status Date / Time cephalexin Allergy Unknown Verified 07/24/24 08:02 ciprofloxacin [From Cipro] Allergy Unknown Verified 07/24/24 08:02 codeine Allergy Unknown Verified 07/24/24 08:02 Physical Exam Vitals: Vital Signs Temp Pulse Resp BP Pulse Ox 08/05/24 12:56 97.5 F L 60 17 137/55 99 08/05/24 07:06 97.7 F 60 17 138/56 100 08/05/24 04:30 95 08/05/24 00:55 98 F 65 20 137/56 91 L 08/04/24 20:00 97.7 F 60 20 134/60 96 Intake and Output 08/05/24 08/05/24 08/05/24 06:59 14:59 22:59 Other: Voiding Method Indwelling Catheter General appearance: alert, in no apparent distress, currently breathing is nonlabored. The patient has been on 2 L of O2 nasal cannula Head exam: Present: atraumatic, normocephalic, normal inspection Eye exam: Present: normal appearance, PERRL, EOMI. Absent: scleral icterus, conjunctival injection, periorbital swelling ENT exam: Present: normal exam, mucous membranes moist Neck exam: Present: normal inspection. Absent: tenderness, meningismus, lymphadenopathy Examination of the lung shows diminished breath sounds bilaterally special left lung base. There is dullness to percussion and is also In the mid and lower lung field bilaterally. Cardiovascular Exam: Present: regular rate, normal rhythm, normal heart sounds. Absent: systolic murmur, diastolic murmur, rubs, gallop, clicks GI/Abdominal exam: Present: soft, normal bowel sounds. Absent: distended, tenderness, guarding, rebound, rigid Extremities exam: Present: normal inspection, full ROM, normal capillary refill. Absent: tenderness, pedal edema, joint swelling, calf tenderness Back exam: Present: normal inspection Neurological exam: Present: alert, oriented X3, CN II-XII intact Psychiatric exam: Present: normal affect, normal mood Skin exam: Present: warm, dry, intact, normal color. Absent: rash Results - Laboratory Findings CBC and BMP: 08/05/24 03:00 08/05/24 03:00 PT/INR, D-dimer PT 12.2 sec (9.9-11.9) H 08/05/24 03:00 INR 1.14 sec (0.93-1.11) H 08/05/24 03:00 Abnormal lab findings: Abnormal Labs 07/23/24 07/23/24 07/23/24 21:34 21:34 21:34 WBC 14.3 H RBC 2.81 L Hgb 8.8 L Hct 28.2 L MCV 100.3 H MCHC RDW 19.4 H Plt Count Neutrophils # 11.8 H Eosinophils # Macrocytosis PT INR Sodium 130 L Potassium 6.2 H* Chloride 96 L Carbon Dioxide BUN 49 H Creatinine 2.39 H Glucose 319 H POC Glucose (mg/dL) Hemoglobin A1c Plasma Lactic Acid [place] 2.1 H* AST 51 H Alkaline Phosphatase 351 H Total Creatine Kinase CK-MM (CK-3) CK-BB (CK-1) C-Reactive Protein Total Protein 6.2 L Albumin 3.2 L Urine Appearance Urine Protein Urine Blood Ur Leukocyte Esterase Urine RBC Urine WBC Urine WBC Clumps Amorphous Sediment Urine Bacteria Hyaline Casts Urine Mucus 07/23/24 07/24/24 07/24/24 23:22 00:08 06:24 WBC RBC Hgb Hct MCV MCHC RDW Plt Count Neutrophils # Eosinophils # Macrocytosis PT INR Sodium Potassium 5.5 H Chloride Carbon Dioxide BUN Creatinine Glucose POC Glucose (mg/dL) 142 H Hemoglobin A1c Plasma Lactic Acid [place] AST Alkaline Phosphatase Total Creatine Kinase CK-MM (CK-3) CK-BB (CK-1) C-Reactive Protein Total Protein Albumin Urine Appearance Cloudy H Urine Protein 1+ H Urine Blood Small H Ur Leukocyte Esterase Large H Urine RBC 15 H Urine WBC >182 H Urine WBC Clumps Many H Amorphous Sediment Few H Urine Bacteria Many H Hyaline Casts 26 H Urine Mucus Occasional H 07/24/24 07/24/24 07/24/24 08:00 08:35 09:33 WBC RBC Hgb Hct MCV MCHC RDW Plt Count Neutrophils # Eosinophils # Macrocytosis PT INR Sodium 132 L Potassium Chloride 97 L Carbon Dioxide BUN 50 H Creatinine 2.63 H Glucose 129 H POC Glucose (mg/dL) 159 H 128 H Hemoglobin A1c Plasma Lactic Acid [place] AST Alkaline Phosphatase Total Creatine Kinase CK-MM (CK-3) CK-BB (CK-1) C-Reactive Protein Total Protein Albumin Urine Appearance Urine Protein Urine Blood Ur Leukocyte Esterase Urine RBC Urine WBC Urine WBC Clumps Amorphous Sediment Urine Bacteria Hyaline Casts Urine Mucus 07/24/24 07/24/24 07/24/24 13:07 15:01 20:24 WBC RBC Hgb Hct MCV MCHC RDW Plt Count Neutrophils # Eosinophils # Macrocytosis PT INR Sodium Potassium Chloride Carbon Dioxide BUN Creatinine Glucose POC Glucose (mg/dL) 259 H 219 H 239 H Hemoglobin A1c Plasma Lactic Acid [place] AST Alkaline Phosphatase Total Creatine Kinase CK-MM (CK-3) CK-BB (CK-1) C-Reactive Protein Total Protein Albumin Urine Appearance Urine Protein Urine Blood Ur Leukocyte Esterase Urine RBC Urine WBC Urine WBC Clumps Amorphous Sediment Urine Bacteria Hyaline Casts Urine Mucus 07/25/24 07/25/24 07/25/24 06:26 06:47 06:47 WBC RBC 2.58 L Hgb 8.1 L Hct 25.9 L MCV 100.4 H MCHC RDW 19.1 H Plt Count Neutrophils # Eosinophils # Macrocytosis PT INR Sodium Potassium Chloride Carbon Dioxide BUN Creatinine Glucose POC Glucose (mg/dL) 125 H Hemoglobin A1c 6.1 H Plasma Lactic Acid [place] AST Alkaline Phosphatase Total Creatine Kinase CK-MM (CK-3) CK-BB (CK-1) C-Reactive Protein Total Protein Albumin Urine Appearance Urine Protein Urine Blood Ur Leukocyte Esterase Urine RBC Urine WBC Urine WBC Clumps Amorphous Sediment Urine Bacteria Hyaline Casts Urine Mucus 07/25/24 07/25/24 07/25/24 06:47 11:48 17:04 WBC RBC Hgb Hct MCV MCHC RDW Plt Count Neutrophils # Eosinophils # Macrocytosis PT INR Sodium 131 L Potassium Chloride 97 L Carbon Dioxide BUN 54 H Creatinine 2.59 H Glucose 110 H POC Glucose (mg/dL) 145 H 190 H Hemoglobin A1c Plasma Lactic Acid [place] AST Alkaline Phosphatase Total Creatine Kinase CK-MM (CK-3) CK-BB (CK-1) C-Reactive Protein Total Protein Albumin Urine Appearance Urine Protein Urine Blood Ur Leukocyte Esterase Urine RBC Urine WBC Urine WBC Clumps Amorphous Sediment Urine Bacteria Hyaline Casts Urine Mucus 07/25/24 07/26/24 07/26/24 20:13 06:00 06:55 WBC RBC Hgb Hct MCV MCHC RDW Plt Count Neutrophils # Eosinophils # Macrocytosis PT INR Sodium Potassium Chloride Carbon Dioxide BUN Creatinine Glucose POC Glucose (mg/dL) 257 H 111 H Hemoglobin A1c Plasma Lactic Acid [place] AST Alkaline Phosphatase Total Creatine Kinase 18 L CK-MM (CK-3) CK-BB (CK-1) C-Reactive Protein Total Protein Albumin Urine Appearance Urine Protein Urine Blood Ur Leukocyte Esterase Urine RBC Urine WBC Urine WBC Clumps Amorphous Sediment Urine Bacteria Hyaline Casts Urine Mucus 07/26/24 07/26/24 07/26/24 06:55 06:55 11:31 WBC RBC 2.56 L Hgb 8.0 L Hct 25.6 L MCV 100.3 H MCHC RDW 19.1 H Plt Count Neutrophils # Eosinophils # Macrocytosis PT INR Sodium 132 L Potassium Chloride 97 L Carbon Dioxide BUN 56 H Creatinine 2.65 H Glucose 101 H POC Glucose (mg/dL) 161 H Hemoglobin A1c Plasma Lactic Acid [place] AST Alkaline Phosphatase 336 H Total Creatine Kinase CK-MM (CK-3) CK-BB (CK-1) C-Reactive Protein Total Protein 5.6 L Albumin 2.8 L Urine Appearance Urine Protein Urine Blood Ur Leukocyte Esterase Urine RBC Urine WBC Urine WBC Clumps Amorphous Sediment Urine Bacteria Hyaline Casts Urine Mucus 07/26/24 07/26/24 07/26/24 16:09 20:08 22:05 WBC RBC Hgb Hct MCV MCHC RDW Plt Count Neutrophils # Eosinophils # Macrocytosis PT INR Sodium Potassium Chloride Carbon Dioxide BUN Creatinine Glucose POC Glucose (mg/dL) 248 H 450 H 207 H Hemoglobin A1c Plasma Lactic Acid [place] AST Alkaline Phosphatase Total Creatine Kinase CK-MM (CK-3) CK-BB (CK-1) C-Reactive Protein Total Protein Albumin Urine Appearance Urine Protein Urine Blood Ur Leukocyte Esterase Urine RBC Urine WBC Urine WBC Clumps Amorphous Sediment Urine Bacteria Hyaline Casts Urine Mucus 07/27/24 07/27/24 07/27/24 06:14 06:30 06:30 WBC RBC Hgb Hct MCV MCHC RDW Plt Count Neutrophils # Eosinophils # Macrocytosis PT INR Sodium 130 L Potassium 5.5 H Chloride Carbon Dioxide BUN 60 H Creatinine 2.75 H Glucose 102 H POC Glucose (mg/dL) 119 H Hemoglobin A1c Plasma Lactic Acid [place] AST Alkaline Phosphatase 378 H Total Creatine Kinase 18 L CK-MM (CK-3) 95.5 L CK-BB (CK-1) 4.5 H C-Reactive Protein Total Protein 5.6 L Albumin 2.9 L Urine Appearance Urine Protein Urine Blood Ur Leukocyte Esterase Urine RBC Urine WBC Urine WBC Clumps Amorphous Sediment Urine Bacteria Hyaline Casts Urine Mucus 07/27/24 07/27/24 07/27/24 06:30 16:15 20:04 WBC RBC 2.54 L Hgb 8.1 L Hct 25.2 L MCV MCHC RDW 19.4 H Plt Count Neutrophils # Eosinophils # 0.8 H Macrocytosis PT INR Sodium Potassium Chloride Carbon Dioxide BUN Creatinine Glucose POC Glucose (mg/dL) 177 H 180 H Hemoglobin A1c Plasma Lactic Acid [place] AST Alkaline Phosphatase Total Creatine Kinase CK-MM (CK-3) CK-BB (CK-1) C-Reactive Protein Total Protein Albumin Urine Appearance Urine Protein Urine Blood Ur Leukocyte Esterase Urine RBC Urine WBC Urine WBC Clumps Amorphous Sediment Urine Bacteria Hyaline Casts Urine Mucus 07/28/24 07/28/24 07/28/24 05:28 05:28 11:31 WBC 11.2 H RBC 2.58 L Hgb 8.4 L Hct 25.8 L MCV 100.2 H MCHC RDW 19.2 H Plt Count Neutrophils # Eosinophils # 0.9 H Macrocytosis PT INR Sodium 132 L Potassium 5.2 H Chloride 97 L Carbon Dioxide BUN 64 H Creatinine 2.94 H Glucose POC Glucose (mg/dL) 214 H Hemoglobin A1c Plasma Lactic Acid [place] AST Alkaline Phosphatase Total Creatine Kinase CK-MM (CK-3) CK-BB (CK-1) C-Reactive Protein Total Protein Albumin Urine Appearance Urine Protein Urine Blood Ur Leukocyte Esterase Urine RBC Urine WBC Urine WBC Clumps Amorphous Sediment Urine Bacteria Hyaline Casts Urine Mucus 07/28/24 07/29/24 07/29/24 20:32 06:05 06:05 WBC 12.7 H RBC 2.62 L Hgb 8.0 L Hct 27.0 L MCV 103.0 H MCHC 29.7 L RDW 18.9 H Plt Count Neutrophils # Eosinophils # Macrocytosis PT INR Sodium 133 L Potassium Chloride Carbon Dioxide BUN 66 H Creatinine 2.79 H Glucose 61 L POC Glucose (mg/dL) 287 H Hemoglobin A1c Plasma Lactic Acid [place] AST Alkaline Phosphatase Total Creatine Kinase CK-MM (CK-3) CK-BB (CK-1) C-Reactive Protein Total Protein Albumin Urine Appearance Urine Protein Urine Blood Ur Leukocyte Esterase Urine RBC Urine WBC Urine WBC Clumps Amorphous Sediment Urine Bacteria Hyaline Casts Urine Mucus 07/29/24 07/29/24 07/29/24 11:26 16:24 20:34 WBC RBC Hgb Hct MCV MCHC RDW Plt Count Neutrophils # Eosinophils # Macrocytosis PT INR Sodium Potassium Chloride Carbon Dioxide BUN Creatinine Glucose POC Glucose (mg/dL) 229 H 166 H 272 H Hemoglobin A1c Plasma Lactic Acid [place] AST Alkaline Phosphatase Total Creatine Kinase CK-MM (CK-3) CK-BB (CK-1) C-Reactive Protein Total Protein Albumin Urine Appearance Urine Protein Urine Blood Ur Leukocyte Esterase Urine RBC Urine WBC Urine WBC Clumps Amorphous Sediment Urine Bacteria Hyaline Casts Urine Mucus 07/30/24 07/30/24 07/30/24 04:09 04:09 11:54 WBC 12.4 H RBC 2.35 L Hgb 7.4 L Hct 23.9 L MCV 101.5 H MCHC 30.9 L RDW 19.0 H Plt Count Neutrophils # Eosinophils # Macrocytosis PT INR Sodium 133 L Potassium Chloride Carbon Dioxide BUN 69 H Creatinine 2.80 H Glucose POC Glucose (mg/dL) 129 H Hemoglobin A1c Plasma Lactic Acid [place] AST Alkaline Phosphatase Total Creatine Kinase CK-MM (CK-3) CK-BB (CK-1) C-Reactive Protein Total Protein Albumin Urine Appearance Urine Protein Urine Blood Ur Leukocyte Esterase Urine RBC Urine WBC Urine WBC Clumps Amorphous Sediment Urine Bacteria Hyaline Casts Urine Mucus 07/30/24 07/30/24 07/31/24 16:44 19:50 06:09 WBC RBC Hgb Hct MCV MCHC RDW Plt Count Neutrophils # Eosinophils # Macrocytosis PT INR Sodium Potassium Chloride Carbon Dioxide BUN Creatinine Glucose POC Glucose (mg/dL) 188 H 184 H 117 H Hemoglobin A1c Plasma Lactic Acid [place] AST Alkaline Phosphatase Total Creatine Kinase CK-MM (CK-3) CK-BB (CK-1) C-Reactive Protein Total Protein Albumin Urine Appearance Urine Protein Urine Blood Ur Leukocyte Esterase Urine RBC Urine WBC Urine WBC Clumps Amorphous Sediment Urine Bacteria Hyaline Casts Urine Mucus 07/31/24 07/31/24 08/01/24 11:21 20:13 06:02 WBC RBC Hgb Hct MCV MCHC RDW Plt Count Neutrophils # Eosinophils # Macrocytosis PT INR Sodium Potassium Chloride Carbon Dioxide BUN Creatinine Glucose POC Glucose (mg/dL) 263 H 143 H 131 H Hemoglobin A1c Plasma Lactic Acid [place] AST Alkaline Phosphatase Total Creatine Kinase CK-MM (CK-3) CK-BB (CK-1) C-Reactive Protein Total Protein Albumin Urine Appearance Urine Protein Urine Blood Ur Leukocyte Esterase Urine RBC Urine WBC Urine WBC Clumps Amorphous Sediment Urine Bacteria Hyaline Casts Urine Mucus 08/01/24 08/01/24 08/01/24 08:58 08:58 11:17 WBC 21.5 H RBC 2.60 L Hgb 8.3 L Hct 26.9 L MCV 103.4 H MCHC RDW 19.4 H Plt Count Neutrophils # Eosinophils # Macrocytosis PT INR Sodium 131 L Potassium Chloride Carbon Dioxide 21 L BUN 73 H Creatinine 2.86 H Glucose 209 H POC Glucose (mg/dL) 185 H Hemoglobin A1c Plasma Lactic Acid [place] AST Alkaline Phosphatase Total Creatine Kinase CK-MM (CK-3) CK-BB (CK-1) C-Reactive Protein Total Protein Albumin Urine Appearance Urine Protein Urine Blood Ur Leukocyte Esterase Urine RBC Urine WBC Urine WBC Clumps Amorphous Sediment Urine Bacteria Hyaline Casts Urine Mucus 08/01/24 08/01/24 08/02/24 16:13 19:59 01:02 WBC RBC Hgb Hct MCV MCHC RDW Plt Count Neutrophils # Eosinophils # Macrocytosis PT INR Sodium Potassium Chloride Carbon Dioxide BUN Creatinine Glucose POC Glucose (mg/dL) 221 H 386 H 40 L* Hemoglobin A1c Plasma Lactic Acid [place] AST Alkaline Phosphatase Total Creatine Kinase CK-MM (CK-3) CK-BB (CK-1) C-Reactive Protein Total Protein Albumin Urine Appearance Urine Protein Urine Blood Ur Leukocyte Esterase Urine RBC Urine WBC Urine WBC Clumps Amorphous Sediment Urine Bacteria Hyaline Casts Urine Mucus 08/02/24 08/02/24 08/02/24 06:22 06:30 06:30 WBC 23.5 H RBC 2.71 L Hgb 8.5 L Hct 27.5 L MCV 101.4 H MCHC RDW 18.6 H Plt Count Neutrophils # 20.7 H Eosinophils # Macrocytosis PT INR Sodium 131 L Potassium Chloride Carbon Dioxide BUN 79 H Creatinine 3.09 H Glucose POC Glucose (mg/dL) 113 H Hemoglobin A1c Plasma Lactic Acid [place] AST Alkaline Phosphatase 341 H Total Creatine Kinase CK-MM (CK-3) CK-BB (CK-1) C-Reactive Protein 14.7 H Total Protein 5.9 L Albumin 3.1 L Urine Appearance Urine Protein Urine Blood Ur Leukocyte Esterase Urine RBC Urine WBC Urine WBC Clumps Amorphous Sediment Urine Bacteria Hyaline Casts Urine Mucus 08/02/24 08/02/24 08/02/24 11:02 16:11 20:12 WBC RBC Hgb Hct MCV MCHC RDW Plt Count Neutrophils # Eosinophils # Macrocytosis PT INR Sodium Potassium Chloride Carbon Dioxide BUN Creatinine Glucose POC Glucose (mg/dL) 239 H 145 H 173 H Hemoglobin A1c Plasma Lactic Acid [place] AST Alkaline Phosphatase Total Creatine Kinase CK-MM (CK-3) CK-BB (CK-1) C-Reactive Protein Total Protein Albumin Urine Appearance Urine Protein Urine Blood Ur Leukocyte Esterase Urine RBC Urine WBC Urine WBC Clumps Amorphous Sediment Urine Bacteria Hyaline Casts Urine Mucus 08/03/24 08/03/24 08/03/24 05:57 05:57 06:17 WBC 21.5 H RBC 2.42 L Hgb 7.7 L Hct 25.0 L MCV 103.4 H MCHC 30.9 L RDW 18.8 H Plt Count Neutrophils # 18.2 H Eosinophils # 0.9 H Macrocytosis PT INR Sodium 129 L Potassium 5.4 H Chloride 97 L Carbon Dioxide 20 L BUN 85 H Creatinine 3.19 H Glucose POC Glucose (mg/dL) 129 H Hemoglobin A1c Plasma Lactic Acid [place] AST Alkaline Phosphatase Total Creatine Kinase CK-MM (CK-3) CK-BB (CK-1) C-Reactive Protein Total Protein Albumin Urine Appearance Urine Protein Urine Blood Ur Leukocyte Esterase Urine RBC Urine WBC Urine WBC Clumps Amorphous Sediment Urine Bacteria Hyaline Casts Urine Mucus 08/03/24 08/03/24 08/03/24 11:32 15:40 16:44 WBC RBC Hgb Hct MCV MCHC RDW Plt Count Neutrophils # Eosinophils # Macrocytosis PT INR Sodium Potassium 5.2 H Chloride Carbon Dioxide BUN Creatinine Glucose POC Glucose (mg/dL) 170 H 214 H Hemoglobin A1c Plasma Lactic Acid [place] AST Alkaline Phosphatase Total Creatine Kinase CK-MM (CK-3) CK-BB (CK-1) C-Reactive Protein Total Protein Albumin Urine Appearance Urine Protein Urine Blood Ur Leukocyte Esterase Urine RBC Urine WBC Urine WBC Clumps Amorphous Sediment Urine Bacteria Hyaline Casts Urine Mucus 08/03/24 08/04/24 08/04/24 19:56 09:08 09:08 WBC 17.8 H RBC 2.37 L Hgb 7.5 L Hct 23.9 L MCV 100.7 H MCHC RDW 18.4 H Plt Count Neutrophils # Eosinophils # Macrocytosis PT INR Sodium 130 L Potassium Chloride 95 L Carbon Dioxide BUN 95 H Creatinine 3.57 H Glucose 104 H POC Glucose (mg/dL) 236 H Hemoglobin A1c Plasma Lactic Acid [place] AST Alkaline Phosphatase Total Creatine Kinase CK-MM (CK-3) CK-BB (CK-1) C-Reactive Protein Total Protein Albumin Urine Appearance Urine Protein Urine Blood Ur Leukocyte Esterase Urine RBC Urine WBC Urine WBC Clumps Amorphous Sediment Urine Bacteria Hyaline Casts Urine Mucus 08/04/24 08/04/24 08/04/24 11:20 17:08 20:51 WBC RBC Hgb Hct MCV MCHC RDW Plt Count Neutrophils # Eosinophils # Macrocytosis PT INR Sodium Potassium Chloride Carbon Dioxide BUN Creatinine Glucose POC Glucose (mg/dL) 203 H 123 H 243 H Hemoglobin A1c Plasma Lactic Acid [place] AST Alkaline Phosphatase Total Creatine Kinase CK-MM (CK-3) CK-BB (CK-1) C-Reactive Protein Total Protein Albumin Urine Appearance Urine Protein Urine Blood Ur Leukocyte Esterase Urine RBC Urine WBC Urine WBC Clumps Amorphous Sediment Urine Bacteria Hyaline Casts Urine Mucus 08/05/24 08/05/24 08/05/24 03:00 03:00 03:00 WBC 16.2 H RBC 2.33 L Hgb 7.2 L Hct 24.3 L MCV 104.4 H MCHC 29.7 L RDW 18.2 H Plt Count 470 H Neutrophils # Eosinophils # Macrocytosis Marked A PT 12.2 H INR 1.14 H Sodium 129 L Potassium 5.3 H Chloride 96 L Carbon Dioxide 21 L BUN 99 H Creatinine 3.68 H Glucose POC Glucose (mg/dL) Hemoglobin A1c Plasma Lactic Acid [place] AST Alkaline Phosphatase Total Creatine Kinase CK-MM (CK-3) CK-BB (CK-1) C-Reactive Protein Total Protein Albumin Urine Appearance Urine Protein Urine Blood Ur Leukocyte Esterase Urine RBC Urine WBC Urine WBC Clumps Amorphous Sediment Urine Bacteria Hyaline Casts Urine Mucus 08/05/24 08/05/24 06:23 11:31 WBC RBC Hgb Hct MCV MCHC RDW Plt Count Neutrophils # Eosinophils # Macrocytosis PT INR Sodium Potassium Chloride Carbon Dioxide BUN Creatinine Glucose POC Glucose (mg/dL) 127 H 225 H Hemoglobin A1c Plasma Lactic Acid [place] AST Alkaline Phosphatase Total Creatine Kinase CK-MM (CK-3) CK-BB (CK-1) C-Reactive Protein Total Protein Albumin Urine Appearance Urine Protein Urine Blood Ur Leukocyte Esterase Urine RBC Urine WBC Urine WBC Clumps Amorphous Sediment Urine Bacteria Hyaline Casts Urine Mucus - Diagnostic Findings Chest x-ray: image reviewed Assessment and Plan Plan: Acute exacerbation of chronic CHF with development of a left-sided pleural effusion. Ultrasound of the chest shows a 9 cm pocket in the left lung, complex, septated. Will attempt a thoracentesis and evaluate the pleural fluid chemistry for diagnostic and therapeutic purposes. Sepsis with enterococcal bacteremia, possible infection of the pacemaker lead with persistent bacteremia. Most recent blood cultures are negative and the PICC line has been inserted in preparation for long-term antibiotic therapy with IV daptomycin. No plans for removal or replacement of the pacemaker leads. Chronic CHF with preserved LV function. 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
[2024-08-05 20:51] LABS: Glucose,Whole Blood 93 mg/dL (70-110)
--- NOTE | 2024-08-05 21:34 | P.PN ---
Progress Note - Text Progress Note Date: 08/05/24 8:06 PM paged to bedside by RN for sharp shooting pain of the left leg. On examination, patient was noted to have leg left with compression wrap up to the knee and winces to the pain. Pain is focal to the distal calf area that is sharp, intermittent with minimum intensity of 5 out of 10 but I suspect she experiences a higher level of pain. Affected area is negative for swelling, wounds or lesions, erythema, and is warm to touch. Concern for DVT as she has been off her Eliquis. Pain control with Dilaudid and ordered Doppler venous ultrasound of right leg. 11:14 PM ultrasound of left leg is negative for DVT. Continue pain control and current management for now.
--- NOTE | 2024-08-05 23:01 | US ---
EXAM: US Duplex Left Lower Extremity Veins CLINICAL HISTORY: ITS.REASON US Reason: left leg pain TECHNIQUE: Real-time duplex ultrasound scan of the left lower extremity veins integrating B-mode two-dimensional vascular structure, Doppler spectral analysis, color flow Doppler imaging and compression. COMPARISON: No relevant prior studies available. FINDINGS: Deep veins: Unremarkable. The visualized deep veins of the left lower extremity are compressible with color flow. No visualized thrombus. Superficial veins: Unremarkable. Soft tissues: No acute findings. IMPRESSION: No DVT within the left lower extremity.
[2024-08-06 03:44] LABS: Anisocytosis Slight; HCT 24.9 % (34.0-46.0); HGB 7.6 gm/dL (11.4-16.0); Hypochromasia Marked; MCH 31.7 pg (25.0-35.0); MCHC 30.5 g/dL (31.0-37.0); Macrocytosis Moderate; Platelet Count 473 k/uL (150-450); RBC 2.39 m/uL (3.80-5.40); RDW 17.9 % (11.5-15.5); WBC 14.3 k/uL (3.8-10.6)
[2024-08-06 03:56] LABS: African American GFR (CKD) 12 (>60 ml/min/1.73 sqM); Anion Gap 12 mmol/L; Calcium 8.9 mg/dL (8.4-10.2); Carbon Dioxide 24 mmol/L (22-30); Chloride 96 mmol/L (98-107); Glucose 80 mg/dL (74-99); Non-African American GFR(CKD) 11 (>60 ml/min/1.73 sqM); Sodium 132 mmol/L (137-145)
[2024-08-06 04:02] LABS: Blood Urea Nitrogen 103 mg/dL (7-17)
[2024-08-06 04:03] LABS: Potassium 5.6 mmol/L (3.5-5.1)
[2024-08-06 06:51] LABS: Glucose,Whole Blood 96 mg/dL (70-110)
--- NOTE | 2024-08-06 09:21 | P.PN ---
Subjective Progress Note Date: 08/06/24 This is a 83-year-old female patient who was having trouble breathing and the p atient also has a large left-sided pleural effusion. 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 The patient has undergone previous thoracentesis of the lung back in 05/20/2024 and at that time, a total of 500 cc of pleural fluid was aspirated from the left lung and the fluid analysis was consistent with a transudate with a low LDH of 2940 952. Fluid cytology was negative for malignancy. Fluid white count was 924. Post thoracentesis chest x-ray showed some residual fluid in the left lung base with incomplete reexpansion of the left lung. The patient is known to have coronary artery disease, previous bypass surgery, previous aortic valve replacement, diabetes mellitus, hypertension hyperlipidemia and chronic stage IV kidney disease. 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 During this current admission, the patient came into the emergency room because of increased shortness of breath, anasarca and fluid overload and the patient was started on IV Lasix. . BALTAZAR was done on 07/27/2024 showed a bioprosthetic aortic valve with mild aortic stenosis, mitral valve severely calcified and there is moderate degree of mitral stenosis and moderate to severe mitral regurgitation, and a 8 mm echodensity in the right atrium attached to the right atrial pacemaker lead which obviously raises the concern for vegetation. The blood cultures from 07/25/2024, and 07/28/2024 was consistent with Enterococcus faecium. Another blood culture from 07/26/2024 showed a combination of Enterococcus and Staph epidermidis. The patient is currently on daptomycin. The patient currently has a PICC line in her right upper extremity for long-term antibiotic coverage., Suspected endovascular source of infection and possibility of an infection of the pacemaker lead. Most recent white cell count is at 16.2 with a hemoglobin 7.2 and a platelet count of 470. BUN is 99 with a creatinine of 3.6 and a sodium is at 129 and a potassium level is at 5.3. On today's evaluation of 08/06/2024, the plan is to do a left-sided thoracentesis on this patient. The patient is currently on 2 L of oxygen by nasal cannula with a pulse ox of 97%. She is off anticoagulation. The white cell count is at 14.3 with a hemoglobin 7.6 and a platelet count of 473. BUN is 100 with a creatinine of 3.7 and sodium levels at 132 and a potassium level is at 5.6. The patient remains very much debilitated. Most recent blood cultures from 07/30/2024 was negative and ID is on the case regarding an endovascular infection. Possibility of a infected pleural space is felt to be less likely. Objective - Vital Signs Vital signs: Vital Signs Temp 97.7 F 08/06/24 07:31 Pulse 60 08/06/24 07:31 Resp 17 08/06/24 07:31 BP 129/68 08/06/24 07:31 Pulse Ox 97 08/06/24 08:55 FiO2 Intake & Output 08/05/24 08/06/24 08/06/24 18:59 06:59 18:59 Other: Voiding Method Indwelling Catheter Indwelling Catheter - Exam General appearance: alert, in no apparent distress, currently breathing is nonlabored. The patient has been on 2 L of O2 nasal cannula Head exam: Present: atraumatic, normocephalic, normal inspection Eye exam: Present: normal appearance, PERRL, EOMI. Absent: scleral icterus, conjunctival injection, periorbital swelling ENT exam: Present: normal exam, mucous membranes moist Neck exam: Present: normal inspection. Absent: tenderness, meningismus, lymphadenopathy Examination of the lung shows diminished breath sounds bilaterally special left lung base. There is dullness to percussion and is also In the mid and lower lung field bilaterally. Cardiovascular Exam: Present: regular rate, normal rhythm, normal heart sounds. Absent: systolic murmur, diastolic murmur, rubs, gallop, clicks GI/Abdominal exam: Present: soft, normal bowel sounds. Absent: distended, tende rness, guarding, rebound, rigid Extremities exam: Present: normal inspection, full ROM, normal capillary refill. Absent: tenderness, pedal edema, joint swelling, calf tenderness Back exam: Present: normal inspection Neurological exam: Present: alert, oriented X3, CN II-XII intact Psychiatric exam: Present: normal affect, normal mood Skin exam: Present: warm, dry, intact, normal color. Absent: rash - Labs CBC & Chem 7: 08/06/24 02:57 08/06/24 02:57 Labs: Abnormal Lab Results - Last 24 Hours (Table) 08/05/24 08/05/24 08/05/24 Range/Units 03:00 03:00 11:31 WBC 16.2 H (3.8-10.6) k/uL RBC 2.33 L (3.80-5.40) m/uL Hgb 7.2 L (11.4-16.0) gm/dL Hct 24.3 L (34.0-46.0) % MCV 104.4 H (80.0-100.0) fL MCHC 29.7 L (31.0-37.0) g/dL RDW 18.2 H (11.5-15.5) % Plt Count 470 H (150-450) k/uL Macrocytosis Marked A PT 12.2 H (9.9-11.9) sec INR 1.14 H (0.93-1.11) sec Sodium (137-145) mmol/L Potassium (3.5-5.1) mmol/L Chloride (98-107) mmol/L BUN (7-17) mg/dL Creatinine (0.52-1.04) mg/dL POC Glucose (mg/dL) 225 H (70-110) mg/dL 08/06/24 08/06/24 Range/Units 02:57 02:57 WBC 14.3 H (3.8-10.6) k/uL RBC 2.39 L (3.80-5.40) m/uL Hgb 7.6 L (11.4-16.0) gm/dL Hct 24.9 L (34.0-46.0) % MCV 104.0 H (80.0-100.0) fL MCHC 30.5 L (31.0-37.0) g/dL RDW 17.9 H (11.5-15.5) % Plt Count 473 H (150-450) k/uL Macrocytosis PT (9.9-11.9) sec INR (0.93-1.11) sec Sodium 132 L (137-145) mmol/L Potassium 5.6 H (3.5-5.1) mmol/L Chloride 96 L (98-107) mmol/L BUN 103 H* (7-17) mg/dL Creatinine 3.73 H (0.52-1.04) mg/dL POC Glucose (mg/dL) (70-110) mg/dL Assessment and Plan Plan: Acute exacerbation of chronic CHF with development of a left-sided pleural effusion. Ultrasound of the chest shows a 9 cm pocket in the left lung, complex, septated. Will attempt a thoracentesis and evaluate the pleural fluid chemistry for diagnostic and therapeutic purposes. Sepsis with enterococcal bacteremia, possible infection of the pacemaker lead with persistent bacteremia. Most recent blood cultures are negative and the PICC line has been inserted in preparation for long-term antibiotic therapy with IV daptomycin. No plans for removal or replacement of the pacemaker leads. Chronic CHF with preserved LV function. 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
--- NOTE | 2024-08-06 09:22 | P.PCN ---
Date of Procedure: 08/06/24 Preoperative Diagnosis: Left pleural effusion Postoperative Diagnosis: Left pleural effusion Procedure(s) Performed: Left thoracentesis Anesthesia: local Surgeon: Ronnell Fowler Estimated Blood Loss (ml): 0 Pathology: other Condition: stable Disposition: floor Operative Findings: A time out was performed and the chest x-ray was reviewed, the appropriate side was confirmed and marked. My hands were washed immediately prior to the procedure. I wore a surgical cap, mask with protective eyewear, sterile gown and sterile gloves throughout the procedure. The patient was prepped and draped in a sterile manner using chlorhexidine scrub after the appropriate level was percussed and confirmed by ultrasound. 1% lidocaine was used to anesthesize the skin, subcutaneous tissue, superior aspect of the rib periosteum and parietal pleura. A finder needle was then introduced over the superior aspect of the rib to locate the pleural fluid; 2colored fluid was aspirated at a depth of approximately 2 cm. A 10-blade scalpel was used to víctor the skin at the insertion site. The Jaez-b-Curwwhus needle was then introduced through the skin incision into the pleural space using negative aspiration pressure and the red colometric indicator to confirm appropriate positioning of the needle. The thoracentesis catheter was then threaded without difficulty. 750 ml of turbid colored fluid was removed without difficulty. The catheter was then removed. No immediate complications were noted during the procedure. A post-procedure chest x-ray is pending at the time of this note. The fluid will be sent for studies. Estimated blood loss is 0cc. Noted that at the end of the drainage, there was some air collecting in the suction bottle. Suspect pneumothorax ex vacuo. A follow-up chest x-ray is to be done. The patient remains hemodynamically stable. She did experience pleuritic chest pain during the course of the procedure.
[2024-08-06 09:47] LABS: % Iron Saturation 10.23 (12.00-45.00)
--- NOTE | 2024-08-06 09:54 | XR ---
EXAMINATION TYPE: XR chest 1V portable DATE OF EXAM: 08/06/2024 COMPARISON: NONE HISTORY: 08/01/2024 TECHNIQUE: Single frontal view of the chest is obtained. FINDINGS: Examination by overlying artifact. Bilateral consolidation. There is interval reduction of pleural fluid. Suspicion of a left-sided pneumothorax or trapped lung. Tiny right pleural effusion. Poststernotomy changes. Surgical clips gallbladder fossa. Multilead cardiac device. A right-sided PIC C line stable. Arthropathy of the shoulders. Degenerative change of the spine. IMPRESSION: 1. There is a approximately 15-20% left-sided pneumothorax or trapped lung post left thoracentesis. 2. Bilateral consolidation. A [place] critical message alert has been initiated for Zuri Garcia MD via the [employer] Critical Results System on 08/06/2024 9:51 AM. This message alert has been sent to Zuri celaya MD via the preferences provided by the clinician for the receipt of Radiology Critical Findings. Leonardo essage ID [id number]. [facility], , 08/06/2024 9:52 AM
[2024-08-06 11:01] LABS: Glucose,Whole Blood 99 mg/dL (70-110)
[2024-08-06] MEDS: SODIUM FERRIC GLUCONAT-SUCROSE 125 MG in SODIUM CHLORIDE 0.9% 100 ML IVPB SCH (11:47)
--- NOTE | 2024-08-06 12:29 | P.PN ---
Subjective Progress Note Date: 08/06/24 Hospital course 83 year old F with PMH of CHF, COPD on 2L home O2, CKD stage IV chronic Ordoñez catheter presents to the ED for SOB and dysuria. In the ED she underwent extensive evaluation. BP 145/90, HR 60, T 98.4, RR 18, 94% on 2L. CBC, Coag panel, CMP significant for WBC 14.3, RBC 2.81, Hg 8.8, Hct 28.2, MCV 100.3, Na 130, K 6.2, Cl 96, BUN 49, Cr 2.39, glu 319, AST 51, alk phos 351, alb 3.2. Lactic acid 2.1. Mag 1.9. Troponin 0.015, 0.028. BNP 8640. Lipase 139. UA large LE. CXR cardiomegaly with LLL infiltrate. EKG ventricular pacemaker. CT AP basilar pleural effusions with compressive atelectasis and anasarca. Patient was admitted for further workup and management. Patient seen this morning. She appears significantly debilitated. I did discuss goals of care with the patient. Patient still wants everything done. She declined hospice. 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 And 50 mg IV every 48 hours Per cardiology no plans for removing pacemaker PICC line inserted by vascular surgery on 08/05/2024 Reviewed pulmonology note who plans on doing thoracentesis. I reviewed the thoracentesis note and 750 cc fluid was removed This was sent from cultures to rule out pleural effusion infection Infectious disease on board WBC this morning 14.3 which is decreasing Repeat blood cultures are negative Acute on chronic diastolic CHF exacerbation Diuretics on hold due to worsening renal failure Cardiology on board Hyperkalemia Potassium this morning is 5.6 Nephrology on board Acute kidney injury on CKD stage IV Diuretics discontinued by nephrology Creatinine is worsening. Today creatinine is 3.73 Continue with calcitriol 0.25 mg PO QSat. Continue NS at 50 cc/hr Atrial fibrillation Restart Eliquis 2.5 mg p.o. twice daily which was on hold for thoracentesis Anemia of chronic disease This morning hemoglobin stable at 7.6 Hypertension Continue amlodipine 7.5 mg p.o. daily Dyslipidemia Continue Lipitor 10 mg p.o. at bedtime Patient has a poor prognosis. I discussed with the patient today about hospice. Patient is adamantly refusing hospice at this time CODE STATUS: NO CODE DVT Prophylaxis: Eliquis. Objective - Vital Signs Vital signs: Vital Signs Temp 97.7 F 08/06/24 07:31 Pulse 60 08/06/24 07:31 Resp 17 08/06/24 07:31 BP 129/68 08/06/24 07:31 Pulse Ox 97 08/06/24 08:55 FiO2 Intake & Output 08/05/24 08/06/24 08/06/24 18:59 06:59 18:59 Other: Voiding Method Indwelling Catheter Indwelling Catheter Indwelling Catheter - Labs CBC & Chem 7: 08/06/24 02:57 08/06/24 02:57 Labs: Abnormal Lab Results - Last 24 Hours (Table) 08/06/24 08/06/24 08/06/24 Range/Units 02:57 02:57 02:57 WBC 14.3 H (3.8-10.6) k/uL RBC 2.39 L (3.80-5.40) m/uL Hgb 7.6 L (11.4-16.0) gm/dL Hct 24.9 L (34.0-46.0) % MCV 104.0 H (80.0-100.0) fL MCHC 30.5 L (31.0-37.0) g/dL RDW 17.9 H (11.5-15.5) % Plt Count 473 H (150-450) k/uL Sodium 132 L (137-145) mmol/L Potassium 5.6 H (3.5-5.1) mmol/L Chloride 96 L (98-107) mmol/L BUN 103 H* (7-17) mg/dL Creatinine 3.73 H (0.52-1.04) mg/dL Iron 18 L (50-170) UG/DL TIBC 176 L (228-460) UG/DL % Saturation 10.23 L (12.00-45.00) Transferrin 126.0 L (204.0-354.0) mg/dL Ferritin 333.0 H (10.0-291.0) ng/mL Vitamin B12 1018.0 H (200.0-944.0) pg/mL
--- NOTE | 2024-08-06 15:46 | P.PN ---
Subjective Progress Note Date: 08/05/24 Principal diagnosis: Reason for follow-up is VRE bacteremia Patient is a 83-year-old female with a past medical history significant for diabetes mellitus hypertension hyperlipidemia heart failure coronary disease patient presented to hospital with increasing shortness of breath did have a positive blood culture VRE prompted this consultation, Patient is status post BALTAZAR completed concerning for vegetation on the pacemaker lead On today's evaluation that is 08/05/2024, the patient continues to be afebrile, the patient is on 2 L nasal cannula oxygen and breathing comfortably, the Pt denies having any chest pain or cough, the patient denies having any abdominal pain she had been complaining of nausea and did have an episode of vomiting this morning no diarrhea. Patient white count is down to 16.2, creatinine 0.68 Objective - Vital Signs Vital signs: Vital Signs Temp 97.7 F 08/05/24 07:06 Pulse 60 08/05/24 07:06 Resp 17 08/05/24 07:06 BP 138/56 08/05/24 07:06 Pulse Ox 100 08/05/24 07:06 FiO2 Intake & Output 08/04/24 08/05/24 08/05/24 18:59 06:59 18:59 Intake Total 200 Balance 200 Intake: Oral 200 Other: Voiding Method Indwelling Catheter Indwelling Catheter Indwelling Catheter - Exam GENERAL DESCRIPTION: An elderly female up in bed in no distress RESPIRATORY SYSTEM: Unlabored breathing , decreased breath sounds at bases HEART: S1 S2 regular rate and rhythm , ABDOMEN: Soft , no tenderness EXTREMITIES: No edema feet - Labs CBC & Chem 7: 08/06/24 02:57 08/06/24 02:57 Labs: Abnormal Lab Results - Last 24 Hours (Table) 08/04/24 08/04/24 08/05/24 Range/Units 17:08 20:51 03:00 WBC (3.8-10.6) k/uL RBC (3.80-5.40) m/uL Hgb (11.4-16.0) gm/dL Hct (34.0-46.0) % MCV (80.0-100.0) fL MCHC (31.0-37.0) g/dL RDW (11.5-15.5) % Plt Count (150-450) k/uL Macrocytosis PT 12.2 H (9.9-11.9) sec INR 1.14 H (0.93-1.11) sec Sodium (137-145) mmol/L Potassium (3.5-5.1) mmol/L Chloride (98-107) mmol/L Carbon Dioxide (22-30) mmol/L BUN (7-17) mg/dL Creatinine (0.52-1.04) mg/dL POC Glucose (mg/dL) 123 H 243 H (70-110) mg/dL 08/05/24 08/05/24 08/05/24 Range/Units 03:00 03:00 06:23 WBC 16.2 H (3.8-10.6) k/uL RBC 2.33 L (3.80-5.40) m/uL Hgb 7.2 L (11.4-16.0) gm/dL Hct 24.3 L (34.0-46.0) % MCV 104.4 H (80.0-100.0) fL MCHC 29.7 L (31.0-37.0) g/dL RDW 18.2 H (11.5-15.5) % Plt Count 470 H (150-450) k/uL Macrocytosis Marked A PT (9.9-11.9) sec INR (0.93-1.11) sec Sodium 129 L (137-145) mmol/L Potassium 5.3 H (3.5-5.1) mmol/L Chloride 96 L (98-107) mmol/L Carbon Dioxide 21 L (22-30) mmol/L BUN 99 H (7-17) mg/dL Creatinine 3.68 H (0.52-1.04) mg/dL POC Glucose (mg/dL) 127 H (70-110) mg/dL 08/05/24 Range/Units 11:31 WBC (3.8-10.6) k/uL RBC (3.80-5.40) m/uL Hgb (11.4-16.0) gm/dL Hct (34.0-46.0) % MCV (80.0-100.0) fL MCHC (31.0-37.0) g/dL RDW (11.5-15.5) % Plt Count (150-450) k/uL Macrocytosis PT (9.9-11.9) sec INR (0.93-1.11) sec Sodium (137-145) mmol/L Potassium (3.5-5.1) mmol/L Chloride (98-107) mmol/L Carbon Dioxide (22-30) mmol/L BUN (7-17) mg/dL Creatinine (0.52-1.04) mg/dL POC Glucose (mg/dL) 225 H (70-110) mg/dL Microbiology - Last 24 Hours (Table) 07/30/24 11:47 Blood Culture - Final Blood Assessment and Plan (1) Allergy to multiple antibiotics Current Visit: No Status: Acute Code(s): Z88.1 - ALLERGY STATUS TO OTHER ANTIBIOTIC AGENTS SNOMED Code(s): 108940895 (2) UTI (urinary tract infection) Current Visit: No Status: Acute Code(s): N39.0 - URINARY TRACT INFECTION, S ITE NOT SPECIFIED SNOMED Code(s): 02790644 (3) VRE bacteremia Current Visit: No Status: Acute Code(s): R78.81 - BACTEREMIA; B95.2 - ENTEROCOCCUS THE CAUSE OF DISEASES CLASSIFIED ELSEWHERE; Z16.21 - RESISTANCE TO VANCOMYCIN SNOMED Code(s): 1562920284 Plan: 1patient with the VRE bacteremia in this patient presented to hospital with increasing shortness of breath patient did have a episode of VRE bacteremia on 06/17/2024 with a blood culture negative on 06/20/2024 and was thought to be related to colitis as she did have abnormal CT and urine grew Ivory on that admission now presenting back to the hospital with increasing shortness of breath and tested positive again Enterococcus faecium that is not VRE, high clinical suspicion for possible endovascular source, patient did have a BALTAZAR concerning for vegetation on the pacemaker lead 2-blood cultures repeat on 07/25/2024 as well as 07/26/2024 positive blood culture repeated 07/29/2024 and so far negative, patient did have a PICC line placement by vascular surgery on 08/05/2024 3-patient white count is trending down, continue with Diflucan and daptomycin an d will be discharged once cleared by other [employer] consultant Dictation was produced using [employer] dictation software. please excuse any grammatical, word or spelling errors. Time with Patient: Less than 30
--- NOTE | 2024-08-06 15:47 | P.PN ---
Subjective Progress Note Date: 08/06/24 Principal diagnosis: Reason for follow-up is VRE bacteremia Patient is a 83-year-old female with a past medical history significant for diabetes mellitus hypertension hyperlipidemia heart failure coronary disease patient presented to hospital with increasing shortness of breath did have a positive blood culture VRE prompted this consultation, Patient is status post BALTAZAR completed concerning for vegetation on the pacemaker lead On today's evaluation that is 08/06/2024, Patient is afebrile patient is currently on 2 L nasal current oxygen and denies having any shortness of breath, the patient denies any chest pain or cough, the patient denies any nausea vomiting did not have any abdominal pain and no diarrhea. The patient white count is down to 14.3, creatinine 3.73 Objective - Vital Signs Vital signs: Vital Signs Temp 97.6 F 08/06/24 12:23 Pulse 63 08/06/24 12:29 Resp 18 08/06/24 12:29 BP 129/64 08/06/24 12:23 Pulse Ox 96 08/06/24 12:23 FiO2 Intake & Output 08/05/24 08/06/24 08/06/24 18:59 06:59 18:59 Other: Voiding Method Indwelling Catheter Indwelling Catheter Indwelling Catheter - Exam GENERAL DESCRIPTION: An elderly female up in bed in no distress RESPIRATORY SYSTEM: Unlabored breathing , decreased breath sounds at bases HEART: S1 S2 regular rate and rhythm , ABDOMEN: Soft , no tenderness EXTREMITIES: No edema feet - Labs CBC & Chem 7: 08/06/24 02:57 08/06/24 02:57 Labs: Abnormal Lab Results - Last 24 Hours (Table) 08/06/24 08/06/24 08/06/24 Range/Units 02:57 02:57 02:57 WBC 14.3 H (3.8-10.6) k/uL RBC 2.39 L (3.80-5.40) m/uL Hgb 7.6 L (11.4-16.0) gm/dL Hct 24.9 L (34.0-46.0) % MCV 104.0 H (80.0-100.0) fL MCHC 30.5 L (31.0-37.0) g/dL RDW 17.9 H (11.5-15.5) % Plt Count 473 H (150-450) k/uL Sodium 132 L (137-145) mmol/L Potassium 5.6 H (3.5-5.1) mmol/L Chloride 96 L (98-107) mmol/L BUN 103 H* (7-17) mg/dL Creatinine 3.73 H (0.52-1.04) mg/dL Iron 18 L (50-170) UG/DL TIBC 176 L (228-460) UG/DL % Saturation 10.23 L (12.00-45.00) Transferrin 126.0 L (204.0-354.0) mg/dL Ferritin 333.0 H (10.0-291.0) ng/mL Vitamin B12 1018.0 H (200.0-944.0) pg/mL Assessment and Plan (1) Allergy to multiple antibiotics Current Visit: No Status: Acute Code(s): Z88.1 - ALLERGY STATUS TO OTHER ANTIBIOTIC AGENTS SNOMED Code(s): 788729664 (2) UTI (urinary tract infection) Current Visit: No Status: Acute Code(s): N39.0 - URINARY TRACT INFECTION, SITE NOT SPECIFIED SNOMED Code(s): 60879025 (3) VRE bacteremia Current Visit: No Status: Acute Code(s): R78.81 - BACTEREMIA; B95.2 - ENTEROCOCCUS THE CAUSE OF DISEASES CLASSIFIED ELSEWHERE; Z16.21 - RESISTANCE TO VANCOMYCIN SNOMED Code(s): 3132628638 Plan: 1patient with the VRE bacteremia in this patient presented to hospital with increasing shortness of breath patient did have a episode of VRE bacteremia on 06/17/2024 with a blood culture negative on 06/20/2024 and was thought to be related to colitis as she did have abnormal CT and urine grew Ivroy on that admission now presenting back to the hospital with increasing shortness of breath and tested positive again Enterococcus faecium that is not VRE, high clinical suspicion for possible endovascular source, patient did have a BALTAZAR concerning for vegetation on the pacemaker lead 2-blood cultures repeat on 07/25/2024 as well as 07/26/2024 positive blood culture repeated 07/29/2024 and so far negative, patient did have a PICC line placement by vascular surgery on 08/05/2024 3-patient did have a left-sided thoracocentesis completed by pulmonary this morning patient overall her white count is trending down she will continue the daptomycin and Diflucan once cleared by other consultants will be able to go home from ID standpoint Dictation was produced using [employer] software. please excuse any grammatical, word or spelling errors. Time with Patient: Less than 30
[2024-08-06 16:12] LABS: Glucose,Whole Blood 182 mg/dL (70-110)
--- NOTE | 2024-08-06 17:52 | P.PN ---
Subjective Patient is seen for follow-up for chronic kidney disease. Maintained on IV fluids at 50 mL an hour and diuretics on hold due to recent worsening of renal function. Serum creatinine 3.7 today. Status post thoracentesis today with 750 mL of fluid removed. Urine output not charted. Discussed with nursing staff. Objective - Vital Signs Vital signs: Vital Signs Temp 97.6 F 08/06/24 12:23 Pulse 63 08/06/24 12:29 Resp 18 08/06/24 12:29 BP 129/64 08/06/24 12:23 Pulse Ox 96 08/06/24 12:23 FiO2 Intake & Output 08/05/24 08/06/24 08/06/24 18:59 06:59 18:59 Other: Voiding Method Indwelling Catheter Indwelling Catheter Indwelling Catheter - Exam Patient is awake, comfortable, no acute distress. Examination of the heart S1 and S2 Examination of the lungs decreased breath sounds at the bases Abdomen is soft nontender Examination of lower extremities shows edema 2+ bilaterally with chronic skin changes, legs are wrapped - Labs CBC & Chem 7: 08/06/24 02:57 08/06/24 02:57 Labs: Abnormal Lab Results - Last 24 Hours (Table) 08/06/24 08/06/24 08/06/24 Range/Units 02:57 02:57 02:57 WBC 14.3 H (3.8-10.6) k/uL RBC 2.39 L (3.80-5.40) m/uL Hgb 7.6 L (11.4-16.0) gm/dL Hct 24.9 L (34.0-46.0) % MCV 104.0 H (80.0-100.0) fL MCHC 30.5 L (31.0-37.0) g/dL RDW 17.9 H (11.5-15.5) % Plt Count 473 H (150-450) k/uL Sodium 132 L (137-145) mmol/L Potassium 5.6 H (3.5-5.1) mmol/L Chloride 96 L (98-107) mmol/L BUN 103 H* (7-17) mg/dL Creatinine 3.73 H (0.52-1.04) mg/dL POC Glucose (mg/dL) (70-110) mg/dL Iron 18 L (50-170) UG/DL TIBC 176 L (228-460) UG/DL % Saturation 10.23 L (12.00-45.00) Transferrin 126.0 L (204.0-354.0) mg/dL Ferritin 333.0 H (10.0-291.0) ng/mL Vitamin B12 1018.0 H (200.0-944.0) pg/mL 08/06/24 Range/Units 16:11 WBC (3.8-10.6) k/uL RBC (3.80-5.40) m/uL Hgb (11.4-16.0) gm/dL Hct (34.0-46.0) % MCV (80.0-100.0) fL MCHC (31.0-37.0) g/dL RDW (11.5-15.5) % Plt Count (150-450) k/uL Sodium (137-145) mmol/L Potassium (3.5-5.1) mmol/L Chloride (98-107) mmol/L BUN (7-17) mg/dL Creatinine (0.52-1.04) mg/dL POC Glucose (mg/dL) 182 H (70-110) mg/dL Iron (50-170) UG/DL TIBC (228-460) UG/DL % Saturation (12.00-45.00) Transferrin (204.0-354.0) mg/dL Ferritin (10.0-291.0) ng/mL Vitamin B12 (200.0-944.0) pg/mL Assessment and Plan Assessment: 1. Acute kidney injury secondary to underlying sepsis and cardiorenal syndrome. Diuretics on hold and maintained on IV fluids at 50 cc an hour. Patient has been reluctant for renal replacement therapy previously. 2. Volume overload, improved from admission 3. Enterococcus bacteremia maintained on daptomycin. Urine culture is negative. Patient is being followed by ID. Concern for vegetation on pacemaker lead. Most recent blood cultures on 07/29/2024 are negative. Status post PICC line for outpatient antibiotics. No plans for removal of pacemaker at this time . 4. CKD mineral bone disorder maintained on calcitriol 5. Chronic kidney disease NKF stage IV with baseline creatinine 2.3 to 2.6 mg/dL. 6. Hyperkalemia associated with CK D and acute kidney injury. Maintained on lokelma. 7. Anemia of chronic disease maintained on Aranesp. No active bleeding noted. Significant iron deficiency noted. Started on IV iron. Plan: Continue with IVf continue low potassium diet. Accurate I's and O's Add IV iron IV insulin and D50 for hyperkalemia Overall prognosis is guarded
[2024-08-06 18:16] LABS: Appearance,BF Cloudy (Clear)
[2024-08-06 20:15] LABS: Glucose,Whole Blood 151 mg/dL (70-110)
[2024-08-06] MEDS: APIXABAN 2.5 MG TABLET PO SCH (20:15)
[2024-08-06 20:55] LABS: Glucose, BF Source Pleural Fluid; Glucose, Body Fluid 77 mg/dL; LDH, Body Fluid Source Pleural Fluid; T. Protein, Body Fluid Source Pleural Fluid; Total Protein, Body Fluid 2010 mg/dL
[2024-08-06 23:28] VITALS: TEMP 97.8
[2024-08-07 06:21] LABS: Glucose,Whole Blood 136 mg/dL (70-110)
[2024-08-07 07:32] VITALS: BP 125/58; PULSE 62; RESP 24
--- NOTE | 2024-08-07 07:51 | XR ---
EXAMINATION TYPE: XR chest 1V portable DATE OF EXAM: 08/07/2024 COMPARISON: 08/06/2024 HISTORY: Pneumothorax TECHNIQUE: Single frontal view of the chest is obtained. FINDINGS: A stable left-sided hydropneumothorax. Right-sided consolidation now noted. Mild venous co ngestion not excluded. Cardiomegaly and sternotomy changes with multilevel cardiac device. Bilateral shoulder arthropathy. Right-sided PICC line noted. IMPRESSION: Bilateral consolidation with stable left-sided hydropneumothorax. [facility], , 08/07/2024 7:49 AM
[2024-08-07 08:37] LABS: HCT 22.5 % (37.2-46.3); HGB 7.2 g/dL (12.0-15.0); MCH 32.4 pg (27.0-32.0); MCV 101.4 FL (80.0-97.0); Mean Platelet Volume 10.8 FL (9.5-12.2); NRBC Per 100 WBC 0 X 10*3/uL (0.00-0.01); Platelet Count 439 X 10*3/uL (140-440); RBC 2.22 X 10*6/uL (4.10-5.20); RDW 17.9 % (11.5-14.5); WBC 17.92 X 10*3/uL (4.50-10.00)
[2024-08-07 08:57] LABS: BUN/Creat Ratio 23.24 Ratio (12.00-20.00); Blood Urea Nitrogen 95.3 mg/dL (9.0-27.0); Calcium 8.7 mg/dL (8.7-10.3); Carbon Dioxide 20.7 mmol/L (21.6-31.8); Chloride 97 mmol/L (96-109); Glucose 129 mg/dL (70-110); Potassium 5.2 mmol/L (3.5-5.5); Sodium 134 mmol/L (135-145)
[2024-08-07 11:16] LABS: Glucose,Whole Blood 126 mg/dL (70-110)
--- NOTE | 2024-08-07 12:34 | P.DS ---
Providers Date of admission: 07/23/24 23:40 Attending physician: Zuri Garcia MD Consults: 07/24/24 08:13 Consult Physician Routine Consulting Provider: Natali Barton Consult Reason/Comments: CKD IV and volume overload Do you want consulting provider notified?: Yes 07/24/24 19:03 Consult Physician Routine Consulting Provider: Tavia Crowley Consult Reason/Comments: bacteremia Do you want consulting provider notified?: Yes 08/05/24 12:15 Consult Physician Routine Consulting Provider: Eddy Wu Consult Reason/Comments: Clearance for IR to procede with thoracentesis Do you want consulting provider notified?: Yes Primary care physician: [facility] Course: Discharge Diagnosis: 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 In the ED she underwent extensive evaluation. BP 145/90, HR 60, T 98.4, RR 18, 94% on 2L. CBC, Coag panel, CMP significant for WBC 14.3, RBC 2.81, Hg 8.8, Hct 28.2, MCV 100.3, Na 130, K 6.2, Cl 96, BUN 49, Cr 2.39, glu 319, AST 51, alk phos 351, alb 3.2. Lactic acid 2.1. Mag 1.9. Troponin 0.015, 0.028. BNP 8640. Lipase 139. UA large LE. CXR cardiomegaly with LLL infiltrate. EKG ventricular pacemaker. CT AP basilar pleural effusions with compressive atelectasis and anasarca. Patient was admitted for further workup and management. Patient was started on diuretics as she appeared volume overloaded. Patient's blood cultures came back positive for VRE. Patient did have a recent admission for VRE bacteremia and the source was thought to be due to colitis. Infectious disease was following the patient. Infectious disease wanted BALTAZAR this time. BALTAZAR was done and showed vegetation on the pacemaker lead. Cardiology had no plans of removing the pacemaker. Patient also has a chronic pleural effusion. Infectious disease recommended thoracentesis to rule out infection in the pleural effusion. Pulmonology did a thoracentesis. After the thoracentesis patient had a pneumothorax. Per pulmonology this is likely due to ex vacuo and no intervention needed. Repeat chest x-ray showed stable pneumothorax. Plan was for prolonged antibiotic course with daptomycin. PICC line was inserted. Unfortunately patient's renal function was worsening while on the diuretics. Diuretics were discontinued however patient's creatinine continued to worsen. Patient's creatinine had increased up to 4.1. Patient's BUN was 95.3. Per nephrology patient has a poor prognosis. Patient also has multiple comorbidities that include advanced COPD and heart failure with valvular abnormalities. Patient's condition was declining. Multiple discussions were had with the patient regarding hospice. Patient initially was refusing. Patient ultimately then decided that the best thing for her would be home with hospice. Patient met with hospice nurse. Both and patient were amenable to hospice. Patient will be discharged home with hospice. Patient seen and examined at bedside.[] Vital signs reviewed and stable. General examination -elderly frail lady, appears chronically debilitated Heart - + S1S2 no murmurs Lungs -diminished breath sounds bilaterally Abdomen soft NT ND +ve BS Extremities -+2 pitting edema in bilateral lower extremity [employer] - Moving all 4 extremities spontaneously Psych -appears somnolent and lethargic A total of [33] minutes of time were spent preparing this complex discharge summary . Patient Condition at Discharge: Critical Plan - Discharge Summary Discharge Rx Participant: No New Discharge Prescriptions: Continue Ubidecarenone [Co Q-10] 30 mg PO DAILY calcitrioL 0.25 mcg PO SA Apixaban [Eliquis] 2.5 mg PO BID allopurinoL [Zyloprim] 100 mg PO DAILY Aspirin 81 mg PO DAILY 30 Days #30 tab Ondansetron Odt [Zofran ODT] 8 mg PO Q8HR PRN PRN Reason: Nausea amLODIPine [Norvasc] 7.5 mg PO DAILY #90 tab Cholecalciferol (Vitamin D3) [Vitamin D3 (50 Mcg = 2000 Iu)] 50 mcg PO DAILY Discontinued Furosemide [Lasix] 40 mg PO DAILY #60 tab Simvastatin [Zocor] 20 mg PO HS Spironolactone [Aldactone] 12.5 mg PO DAILY #60 tab Discharge Medication List Ubidecarenone [Co Q-10] 30 mg PO DAILY 09/06/23 [History] calcitrioL 0.25 mcg PO SA 11/17/23 [History] Apixaban [Eliquis] 2.5 mg PO BID 02/08/24 [History] allopurinoL [Zyloprim] 100 mg PO DAILY 05/06/24 [History] Aspirin 81 mg PO DAILY 30 Days #30 tab 05/20/24 [Rx] Cholecalciferol (Vitamin D3) [Vitamin D3 (50 Mcg = 2000 Iu)] 50 mcg PO DAILY 06/17/24 [History] Ondansetron Odt [Zofran ODT] 8 mg PO Q8HR PRN 06/17/24 [History] amLODIPine [Norvasc] 7.5 mg PO DAILY #90 tab 07/09/24 [Rx] Follow up Appointment(s)/Referral(s): Musa Feliciano MD [Primary Care Provider] - 1-2 days [facility] [NON-STAFF] - 08/07/24 3:00 pm (hospice) Tavia Crowley MD [STAFF PHYSICIAN] - 1 Week Ambulatory/Diagnostic Orders: Basic Metabolic Panel [LAB.AMB] Location: None Selected C Reactive Protein [LAB.AMB] Location: None Selected Complete Blood Count w/diff [LAB.AMB] Location: None Selected Erythrocyte Sedimentation Rate [LAB.AMB] Location: None Selected Activity/Diet/Wound Care/Special Instructions: Patient requires a froyaln lift to assist with transfers. Patient would be bedbound if she did not have a froylan lift and is a two or more person assist with transfers R/T CHF and sepsis Patient requires a bedside commode at discharge due to being room confined from CHF/Sepsis Discharge Disposition: HOME WITH HOSPICE
--- NOTE | 2024-08-07 13:21 | P.PN ---
Subjective Patient is seen for follow-up for chronic kidney disease. Maintained on IV fluids at 50 mL an hour and diuretics on hold due to recent worsening of renal function. Serum creatinine 4.1 today. Status post thoracentesis with 750 mL of fluid removed. patient and will be meeting with hospice nurse today. Objective - Vital Signs Vital signs: Vital Signs Temp 97.8 F 08/07/24 07:30 Pulse 62 08/07/24 07:32 Resp 24 08/07/24 07:32 BP 125/58 08/07/24 07:30 Pulse Ox 97 08/07/24 01:25 FiO2 Intake & Output 08/06/24 08/07/24 08/07/24 18:59 06:59 18:59 Intake Total 660 Output Total 150 Balance 510 Weight 68.9 kg Intake: Oral 660 Output: Urine 150 Other: Voiding Method Indwelling Catheter Indwelling Catheter Indwelling Catheter - Exam Patient is awake, comfortable, no acute distress. Examination of the heart S1 and S2 Examination of the lungs decreased breath sounds at the bases Abdomen is soft nontender Examination of lower extremities shows edema 2+ bilaterally with chronic skin changes, legs are wrapped - Labs CBC & Chem 7: 08/07/24 03:11 08/07/24 03:11 Labs: Abnormal Lab Results - Last 24 Hours (Table) 08/06/24 08/06/24 08/06/24 Range/Units 09:00 16:11 20:04 WBC (4.50-10.00) X 10*3/uL RBC (4.10-5.20) X 10*6/uL Hgb (12.0-15.0) g/dL Hct (37.2-46.3) % MCV (80.0-97.0) FL MCH (27.0-32.0) pg RDW (11.5-14.5) % Sodium (135-145) mmol/L Carbon Dioxide (21.6-31.8) mmol/L Anion Gap (4.00-12.00) mmol/L BUN (9.0-27.0) mg/dL Creatinine (0.6-1.5) mg/dL Est GFR (CKD-EPI) (>=60) BUN/Creatinine Ratio (12.00-20.00) Ratio Glucose (70-110) mg/dL POC Glucose (mg/dL) 182 H 151 H (70-110) mg/dL Fluid Appearance Cloudy A (Clear) 08/07/24 08/07/24 08/07/24 Range/Units 03:11 03:11 06:19 WBC 17.92 H (4.50-10.00) X 10*3/uL RBC 2.22 L (4.10-5.20) X 10*6/uL Hgb 7.2 L (12.0-15.0) g/dL Hct 22.5 L (37.2-46.3) % MCV 101.4 H (80.0-97.0) FL MCH 32.4 H (27.0-32.0) pg RDW 17.9 H (11.5-14.5) % Sodium 134 L (135-145) mmol/L Carbon Dioxide 20.7 L (21.6-31.8) mmol/L Anion Gap 16.30 H (4.00-12.00) mmol/L BUN 95.3 H (9.0-27.0) mg/dL Creatinine 4.1 H (0.6-1.5) mg/dL Est GFR (CKD-EPI) 10 L (>=60) BUN/Creatinine Ratio 23.24 H (12.00-20.00) Ratio Glucose 129 H (70-110) mg/dL POC Glucose (mg/dL) 136 H (70-110) mg/dL Fluid Appearance (Clear) 08/07/24 Range/Units 11:14 WBC (4.50-10.00) X 10*3/uL RBC (4.10-5.20) X 10*6/uL Hgb (12.0-15.0) g/dL Hct (37.2-46.3) % MCV (80.0-97.0) FL MCH (27.0-32.0) pg RDW (11.5-14.5) % Sodium (135-145) mmol/L Carbon Dioxide (21.6-31.8) mmol/L Anion Gap (4.00-12.00) mmol/L BUN (9.0-27.0) mg/dL Creatinine (0.6-1.5) mg/dL Est GFR (CKD-EPI) (>=60) BUN/Creatinine Ratio (12.00-20.00) Ratio Glucose (70-110) mg/dL POC Glucose (mg/dL) 126 H (70-110) mg/dL Fluid Appearance (Clear) Microbiology - Last 24 Hours (Table) 08/06/24 09:00 Gram Stain - Preliminary Pleural Fluid Body Fluid Culture - Preliminary Assessment and Plan Assessment: 1. Acute kidney injury secondary to underlying sepsis and cardiorenal syndrome. Diuretics on hold and maintained on IV fluids at 50 cc an hour. Patient has been reluctant for renal replacement therapy previously. Patient is not an ideal candidate for long-term outpatient renal replacement therapy. 2. Volume overload, improved from admission 3. Enterococcus bacteremia maintained on daptomycin. Urine culture is negative. Patient is being followed by ID. Concern for vegetation on pacemaker lead. Most recent blood cultures on 07/29/2024 are negative. Status post PICC line for outpatient antibiotics. No plans for removal of pacemaker at this time. 4. CKD mineral bone disorder maintained on calcitriol 5. Chronic kidney disease NKF stage IV with baseline creatinine 2.3 to 2.6 mg/d L. 6. Hyperkalemia associated with CK D and acute kidney injury. Maintained on lokelma. 7. Anemia of chronic disease maintained on Aranesp. No active bleeding noted. Significant iron deficiency noted. Started on IV iron. Plan: Overall prognosis is guarded. Agree with discussion for hospice care. Patient is not an ideal candidate for long-term outpatient renal replacement therapy
--- NOTE | 2024-08-07 18:27 | P.PN ---
Subjective Progress Note Date: 08/07/24 This is a 83-year-old female patient who was having trouble breathing and the p atient also has a large left-sided pleural effusion. 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 The patient has undergone previous thoracentesis of the lung back in 05/20/2024 and at that time, a total of 500 cc of pleural fluid was aspirated from the left lung and the fluid analysis was consistent with a transudate with a low LDH of 2940 952. Fluid cytology was negative for malignancy. Fluid white count was 924. Post thoracentesis chest x-ray showed some residual fluid in the left lung base with incomplete reexpansion of the left lung. The patient is known to have coronary artery disease, previous bypass surgery, previous aortic valve replacement, diabetes mellitus, hypertension hyperlipidemia and chronic stage IV kidney disease. 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 During this current admission, the patient came into the emergency room because of increased shortness of breath, anasarca and fluid overload and the patient was started on IV Lasix. . BALTAZAR was done on 07/27/2024 showed a bioprosthetic aortic valve with mild aortic stenosis, mitral valve severely calcified and there is moderate degree of mitral stenosis and moderate to severe mitral regurgitation, and a 8 mm echodensity in the right atrium attached to the right atrial pacemaker lead which obviously raises the concern for vegetation. The blood cultures from 07/25/2024, and 07/28/2024 was consistent with Enterococcus faecium. Another blood culture from 07/26/2024 showed a combination of Enterococcus and Staph epidermidis. The patient is currently on daptomycin. The patient currently has a PICC line in her right upper extremity for long-term antibiotic coverage., Suspected endovascular source of infection and possibility of an infection of the pacemaker lead. Most recent white cell count is at 16.2 with a hemoglobin 7.2 and a platelet count of 470. BUN is 99 with a creatinine of 3.6 and a sodium is at 129 and a potassium level is at 5.3. On today's evaluation of 08/06/2024, the plan is to do a left-sided thoracentesis on this patient. The patient is currently on 2 L of oxygen by nasal cannula with a pulse ox of 97%. She is off anticoagulation. The white cell count is at 14.3 with a hemoglobin 7.6 and a platelet count of 473. BUN is 100 with a creatinine of 3.7 and sodium levels at 132 and a potassium level is at 5.6. The patient remains very much debilitated. Most recent blood cultures from 07/30/2024 was negative and ID is on the case regarding an endovascular infection. Possibility of a infected pleural space is felt to be less likely. On 08/07/24, the patient is Very much debilitated, lethargic, weak, respiratory status remained stable despite development of loculated right-sided pneumothorax postthoracentesis. The patient remains on 2 L of oxygen by nasal cannula. The pleural fluid is aspirated was probably transudate related to low LDH and low protein. However, there is progressive worsening of the function. The white cell count 17.7 hemoglobin 7.2 and a platelet count of 439. BS 95 potassium of 4.1 and a sodium levels at 134. The patient has agreed to involve and the hospitalist program. Objective - Vital Signs Vital signs: Vital Signs Temp 97.8 F 08/07/24 07:30 Pulse 62 08/07/24 07:32 Resp 24 08/07/24 07:32 BP 125/58 08/07/24 07:30 Pulse Ox 97 08/07/24 01:25 FiO2 Intake & Output 08/06/24 08/07/24 08/07/24 18:59 06:59 18:59 Intake Total 660 Output Total 150 Balance 510 Weight 68.9 kg Intake: Oral 660 Output: Urine 150 Other: Voiding Method Indwelling Catheter Indwelling Catheter Indwelling Catheter - Exam General appearance: alert, in no apparent distress, currently breathing is nonlabored. The patient has been on 2 L of O2 nasal cannula Head exam: Present: atraumatic, normocephalic, normal inspection Eye exam: Present: normal appearance, PERRL, EOMI. Absent: scleral icterus, conjunctival injection, periorbital swelling ENT exam: Present: normal exam, mucous membranes moist Neck exam: Present: normal inspection. Absent: tenderness, meningismus, lymphadenopathy Examination of the lung shows diminished breath sounds bilaterally special left lung base. There is dullness to percussion and is also In the mid and lower lung field bilaterally. Cardiovascular Exam: Present: regular rate, normal rhythm, normal heart sounds. Absent: systolic murmur, diastolic murmur, rubs, gallop, clicks GI/Abdominal exam: Present: soft, normal bowel sounds. Absent: distended, tenderness, guarding, rebound, rigid Extremities exam: Present: normal inspection, full ROM, normal capillary refill. Absent: tenderness, pedal edema, joint swelling, calf tenderness Back exam: Present: normal inspection Neurological exam: Present: alert, oriented X3, CN II-XII intact Psychiatric exam: Present: normal affect, normal mood Skin exam: Present: warm, dry, intact, normal color. Absent: rash - Labs CBC & Chem 7: 08/07/24 03:11 08/07/24 03:11 Labs: Abnormal Lab Results - Last 24 Hours (Table) 08/06/24 08/06/24 08/06/24 Range/Units 09:00 16:11 20:04 WBC (4.50-10.00) X 10*3/uL RBC (4.10-5.20) X 10*6/uL Hgb (12.0-15.0) g/dL Hct (37.2-46.3) % MCV (80.0-97.0) FL MCH (27.0-32.0) pg RDW (11.5-14.5) % Sodium (135-145) mmol/L Carbon Dioxide (21.6-31.8) mmol/L Anion Gap (4.00-12.00) mmol/L BUN (9.0-27.0) mg/dL Creatinine (0.6-1.5) mg/dL Est GFR (CKD-EPI) (>=60) BUN/Creatinine Ratio (12.00-20.00) Ratio Glucose (70-110) mg/dL POC Glucose (mg/dL) 182 H 151 H (70-110) mg/dL Fluid Appearance Cloudy A (Clear) 08/07/24 08/07/24 08/07/24 Range/Units 03:11 03:11 06:19 WBC 17.92 H (4.50-10.00) X 10*3/uL RBC 2.22 L (4.10-5.20) X 10*6/uL Hgb 7.2 L (12.0-15.0) g/dL Hct 22.5 L (37.2-46.3) % MCV 101.4 H (80.0-97.0) FL MCH 32.4 H (27.0-32.0) pg RDW 17.9 H (11.5-14.5) % Sodium 134 L (135-145) mmol/L Carbon Dioxide 20.7 L (21.6-31.8) mmol/L Anion Gap 16.30 H (4.00-12.00) mmol/L BUN 95.3 H (9.0-27.0) mg/dL Creatinine 4.1 H (0.6-1.5) mg/dL Est GFR (CKD-EPI) 10 L (>=60) BUN/Creatinine Ratio 23.24 H (12.00-20.00) Ratio Glucose 129 H (70-110) mg/dL POC Glucose (mg/dL) 136 H (70-110) mg/dL Fluid Appearance (Clear) 08/07/24 Range/Units 11:14 WBC (4.50-10.00) X 10*3/uL RBC (4.10-5.20) X 10*6/uL Hgb (12.0-15.0) g/dL Hct (37.2-46.3) % MCV (80.0-97.0) FL MCH (27.0-32.0) pg RDW (11.5-14.5) % Sodium (135-145) mmol/L Carbon Dioxide (21.6-31.8) mmol/L Anion Gap (4.00-12.00) mmol/L BUN (9.0-27.0) mg/dL Creatinine (0.6-1.5) mg/dL Est GFR (CKD-EPI) (>=60) BUN/Creatinine Ratio (12.00-20.00) Ratio Glucose (70-110) mg/dL POC Glucose (mg/dL) 126 H (70-110) mg/dL Fluid Appearance (Clear) Microbiology - Last 24 Hours (Table) 08/06/24 09:00 Gram Stain - Preliminary Pleural Fluid Body Fluid Culture - Preliminary Assessment and Plan Plan: Acute exacerbation of chronic CHF with development of a left-sided pleural effu mariya. Ultrasound of the chest shows a 9 cm pocket in the left lung, complex, septated. Thoracentesis reveal contents of left-sided pleural effusion. A tiny loculated pneumothorax in the left lung base resulted following the thoracentesis Sepsis with enterococcal bacteremia, possible infection of the pacemaker lead with persistent bacteremia. Most recent blood cultures are negative and the PI CC line has been inserted in preparation for long-term antibiotic therapy with IV daptomycin. No plans for removal or replacement of the pacemaker leads. Chronic CHF with preserved LV function. The patient is concentric LVH with diastolic heart failure and valvular heart disease, with mitral stenosis and moderate to severe degree of mitral regurgitation, and a normally functioning aortic bioprosthetic valve Concentric LVH, moderately severe Chronic stage IV kidney disease Anemia of chronic disease Hypertension Coronary artery disease with previous bypass surgery and aortic valve repla cement Diabetes mellitus type 2 Hyperlipidemia History of complete AV block and the patient is a pacemaker in place History of atrial fibrillation, Eliquis is placed on hold on 08/05/2024 Hyperkalemia, nephrology on the case Plan Stable on 2 L of oxygen by nasal cannula No significant respiratory distress Hospitalist to follow Pulmonary critical care will sign off the case
--- NOTE | 2024-08-08 15:01 | P.PN ---
Subjective Progress Note Date: 08/07/24 Principal diagnosis: Reason for follow-up is VRE bacteremia Patient is a 83-year-old female with a past medical history significant for diabetes mellitus hypertension hyperlipidemia heart failure coronary disease patient presented to hospital with increasing shortness of breath did have a positive blood culture VRE prompted this consultation, Patient is status post BALTAZAR completed concerning for vegetation on the pacemaker lead On today's evaluation that is 08/07/2024, patient has been afebrile, patient is breathing comfortably and is currently on 2 L nasal cannula oxygen patient seem to be having issues with nausea and vomiting and not feeling well no diarrhea h as been reported. Patient white count slightly up to 17.90 today, creatinine is 4.1 Objective - Vital Signs Vital signs: Vital Signs Temp 97.8 F 08/07/24 07:30 Pulse 62 08/07/24 07:32 Resp 24 08/07/24 07:32 BP 125/58 08/07/24 07:30 Pulse Ox 97 08/07/24 01:25 FiO2 Intake & Output 08/06/24 08/07/24 08/07/24 18:59 06:59 18:59 Intake Total 660 Output Total 150 Balance 510 Weight 68.9 kg Intake: Oral 660 Output: Urine 150 Other: Voiding Method Indwelling Catheter Indwelling Catheter Indwelling Catheter - Exam GENERAL DESCRIPTION: An elderly female up in bed in no distress RESPIRATORY SYSTEM: Unlabored breathing , decreased breath sounds at bases HEART: S1 S2 regular rate and rhythm , ABDOMEN: Soft , no tenderness EXTREMITIES: No edema feet - Labs CBC & Chem 7: 08/07/24 03:11 08/07/24 03:11 Labs: Abnormal Lab Results - Last 24 Hours (Table) 08/06/24 08/06/24 08/06/24 Range/Units 09:00 16:11 20:04 WBC (4.50-10.00) X 10*3/uL RBC (4.10-5.20) X 10*6/uL Hgb (12.0-15.0) g/dL Hct (37.2-46.3) % MCV (80.0-97.0) FL MCH (27.0-32.0) pg RDW (11.5-14.5) % Sodium (135-145) mmol/L Carbon Dioxide (21.6-31.8) mmol/L Anion Gap (4.00-12.00) mmol/L BUN (9.0-27.0) mg/dL Creatinine (0.6-1.5) mg/dL Est GFR (CKD-EPI) (>=60) BUN/Creatinine Ratio (12.00-20.00) Ratio Glucose (70-110) mg/dL POC Glucose (mg/dL) 182 H 151 H (70-110) mg/dL Fluid Appearance Cloudy A (Clear) 08/07/24 08/07/24 08/07/24 Range/Units 03:11 03:11 06:19 WBC 17.92 H (4.50-10.00) X 10*3/uL RBC 2.22 L (4.10-5.20) X 10*6/uL Hgb 7.2 L (12.0-15.0) g/dL Hct 22.5 L (37.2-46.3) % MCV 101.4 H (80.0-97.0) FL MCH 32.4 H (27.0-32.0) pg RDW 17.9 H (11.5-14.5) % Sodium 134 L (135-145) mmol/L Carbon Dioxide 20.7 L (21.6-31.8) mmol/L Anion Gap 16.30 H (4.00-12.00) mmol/L BUN 95.3 H (9.0-27.0) mg/dL Creatinine 4.1 H (0.6-1.5) mg/dL Est GFR (CKD-EPI) 10 L (>=60) BUN/Creatinine Ratio 23.24 H (12.00-20.00) Ratio Glucose 129 H (70-110) mg/dL POC Glucose (mg/dL) 136 H (70-110) mg/dL Fluid Appearance (Clear) 08/07/24 Range/Units 11:14 WBC (4.50-10.00) X 10*3/uL RBC (4.10-5.20) X 10*6/uL Hgb (12.0-15.0) g/dL Hct (37.2-46.3) % MCV (80.0-97.0) FL MCH (27.0-32.0) pg RDW (11.5-14.5) % Sodium (135-145) mmol/L Carbon Dioxide (21.6-31.8) mmol/L Anion Gap (4.00-12.00) mmol/L BUN (9.0-27.0) mg/dL Creatinine (0.6-1.5) mg/dL Est GFR (CKD-EPI) (>=60) BUN/Creatinine Ratio (12.00-20.00) Ratio Glucose (70-110) mg/dL POC Glucose (mg/dL) 126 H (70-110) mg/dL Fluid Appearance (Clear) Microbiology - Last 24 Hours (Table) 08/06/24 09:00 Gram Stain - Preliminary Pleural Fluid Body Fluid Culture - Preliminary Assessment and Plan (1) Allergy to multiple antibiotics Status: Acute Code(s): Z88.1 - ALLERGY STATUS TO OTHER ANTIBIOTIC AGENTS SNOMED Code(s): 848107508 (2) UTI (urinary tract infection) Status: Acute Code(s): N39.0 - URINARY TRACT INFECTION, SITE NOT SPECIFIED SNOMED Code(s): 08161710 (3) VRE bacteremia Status: Acute Code(s): R78.81 - BACTEREMIA; B95.2 - ENTEROCOCCUS THE CAUSE OF DISEASES CLASSIFIED ELSEWHERE; Z16.21 - RESISTANCE TO VANCOMYCIN SNOMED Code(s): 9177230386 Plan: 1patient with the VRE bacteremia in this patient presented to hospital with increasing shortness of breath patient did have a episode of VRE bacteremia on 06/17/2024 with a blood culture negative on 06/20/2024 and was thought to be related to colitis as she did have abnormal CT and urine grew Iv[place] on that admission now presenting back to the hospital with increasing shortness of breath and tested positive again Enterococcus faecium that is not VRE, high clinical suspicion for possible endovascular source, patient did have a BALTAZAR concerning for vegetation on the pacemaker lead 2-blood cultures repeat on 07/25/2024 as well as 07/26/2024 positive blood culture repeated 07/29/2024 and so far negative, patient did have a PICC line placement by vascular surgery on 08/05/2024 3-patient did have a left-sided thoracocentesis completed by pulmonary, fluid cultures currently pending patient seem to have worsening of her kidney function and is possible thinking about hospice which would be able appropriate in that case antibiotics can be safely discontinued Dictation was produced using [employer] software. please excuse any grammatical, word or spelling errors.
== END 2024-08-07 16:05 | disposition hospice, home (50) | DRG 314 ==
LOC: EC 20:51 → 3SCARD 23:40 → 4SSUR 08-04 12:23
PROVIDERS: ADMIT Internal Medicine; ATTEND Internal Medicine
PROC: 02HV33Z Insertion of Infusion Device into Superior Vena Cava, Percutaneous Approach (ICD-10-PCS; principal; 2024-08-05 07:30)
PROC: 0W9B3ZX Drainage of Left Pleural Cavity, Percutaneous Approach, Diagnostic (ICD-10-PCS; 2024-08-06)
DX: T82.7XXA Infection and inflammatory reaction due to other cardiac and vascular devices, implants and grafts, initial encounter (principal); A41.81 Sepsis due to Enterococcus; I33.0 Acute and subacute infective endocarditis; R65.20 Severe sepsis without septic shock; N17.0 Acute kidney failure with tubular necrosis; I50.33 Acute on chronic diastolic (congestive) heart failure; I13.0 Hypertensive heart and chronic kidney disease with heart failure and stage 1 through stage 4 chronic kidney disease, or unspecified chronic kidney disease; Z16.21 Resistance to vancomycin; N18.4 Chronic kidney disease, stage 4 (severe); I48.20 Chronic atrial fibrillation, unspecified; T83.511A Infection and inflammatory reaction due to indwelling urethral catheter, initial encounter; N39.0 Urinary tract infection, site not specified; J96.11 Chronic respiratory failure with hypoxia; J91.8 Pleural effusion in other conditions classified elsewhere; I44.2 Atrioventricular block, complete; I48.21 Permanent atrial fibrillation; J93.9 Pneumothorax, unspecified; E87.1 Hypo-osmolality and hyponatremia; E78.5 Hyperlipidemia, unspecified; E11.22 Type 2 diabetes mellitus with diabetic chronic kidney disease; D63.1 Anemia in chronic kidney disease; J44.9 Chronic obstructive pulmonary disease, unspecified; I25.10 Atherosclerotic heart disease of native coronary artery without angina pectoris; Z66 Do not resuscitate; M89.8X9 Other specified disorders of bone, unspecified site; E87.5 Hyperkalemia; B95.62 Methicillin resistant Staphylococcus aureus infection as the cause of diseases classified elsewhere; I08.3 Combined rheumatic disorders of mitral, aortic and tricuspid valves; I27.20 Pulmonary hypertension, unspecified; E61.1 Iron deficiency; Y83.1 Surgical operation with implant of artificial internal device as the cause of abnormal reaction of the patient, or of later complication, without mention of misadventure at the time of the procedure; Y84.6 Urinary catheterization as the cause of abnormal reaction of the patient, or of later complication, without mention of misadventure at the time of the procedure; Z79.01 Long term (current) use of anticoagulants; Z79.82 Long term (current) use of aspirin; Z79.899 Other long term (current) drug therapy; Z95.1 Presence of aortocoronary bypass graft; Z95.3 Presence of xenogenic heart valve; Z99.81 Dependence on supplemental oxygen
CPT/HCPCS: 36415; 36573; 71045; 74176; 76604; 80048; 80053; 81001; 82550; 82552; 82607; 82728; 82746; 82945; 83036; 83540; 83550; 83605; 83615; 83690; 83735; 83880; 84132; 84157; 84484; 85025; 85027; 85610; 85730; 86140; 87040; 87070; 87077; 87086; 87186; 87205; 88108; 88305; 89050; 93005; 93312; 93320; 93325; 94760; 96365; 96366; 96367; 96375; 96376; 99291